=== PATIENT | male | born 1940 | race Caucasian/White ===

== ENCOUNTER → 2016-09-29 | Outpatient (CLI) | payer OTHER ==
[~2016-09-29] MED LIST: ALPR-411 PO; AMLO-110 PO; ASPI-232 PO; CLON0.1T12 PO; FLM4 PO; LEVO-217 PO; LISI40TA PO; LVMIPEN SC; MELO15TA3 PO; METO50TA7 PO; MULT-506 PO; NVLGI/PEN SC; NYSCR15 TOP; SILD100T PO; SIMV20TA2 PO; TIMO0.2527 OPB; TRAM-10 PO; TRIA0.1C20 TOP; URC10 PO; ZTA10 PO
[2016-09-29 11:37] LABS: ESTIMATED AVERAGE GLUCOSE 146 mg/dl; HA1C FLAG Normal (Normal)
== END | disposition home or self-care (01) ==
LOC: C.LABBC 08:52
PROVIDERS: ATTEND Nurse Practitioner Adult Health
DX: E11.8 Type 2 diabetes mellitus with unspecified complications (principal)

== ENCOUNTER → 2016-10-19 | Outpatient (CLI) | payer OTHER ==
[2016-10-19 11:40] LABS: BASO % 0.5 %; BASO ABS # 0.03 K/uL (0-0.2); COMPLETE YES; EOS % 4.5 %; HEMATOCRIT 41.3 % (42-52); IG% 0.2 %; LYMPH % 25.6 %; LYMPH ABS # 1.41 K/uL (1.2-3.4); MEAN CELL VOLUME 93.7 fL (80-100); MEAN CORPUSCULAR HEMOGLOBIN 29.9 pg (25-34); MEAN PLATELET VOLUME 11.6 fL (7.4-10.4); MONO % 9.3 %; NEUT % 59.9 %; PLATELET COUNT 190 K/uL (130-400); RED BLOOD COUNT 4.41 M/uL (4.7-6.1); WHITE BLOOD COUNT 5.51 K/uL (4.8-10.8)
[2016-10-19 11:58] LABS: BLOOD UREA NITROGEN 51 mg/dl (7-18); CALCIUM 9.1 mg/dl (8.5-10.1); CARBON DIOXIDE 26 mmol/L (21-32); CHLORIDE 107 mmol/L (98-107); GLUCOSE 100 mg/dl (70-99); POTASSIUM 4.6 mmol/L (3.5-5.1); SODIUM 142 mmol/L (136-145)
== END | disposition home or self-care (01) ==
LOC: C.LABBC 07:39
PROVIDERS: ATTEND Internal Medicine
DX: E78.5 Hyperlipidemia, unspecified (principal)

== ENCOUNTER → 2017-02-01 | Outpatient (CLI) | payer OTHER ==
--- NOTE | 2017-02-01 08:37 | DIAGNOSTIC IMAGING REPORT ---
KUB CLINICAL HISTORY: NEPHROLITHIASIS COMPARISON STUDY: 02/02/2016 FINDINGS: There is scattered stool within the colon. There is no evidence of bowel obstruction. There is a left mid abdominal suture line. There are two equivocal 3 mm lower pole left renal calculi.. Degenerative changes are present within the spine. There is a scoliosis. IMPRESSION: 1. Equivocal lower pole left renal calculi Electronically signed by: Maxwell Bueno M.D. 02/01/2017 8:36 AM Dictated Date/Time: 02/01/2017 8:34 AM
[2017-02-01 11:01] LABS: BASO % 0.8 %; BASO ABS # 0.05 K/uL (0-0.2); COMPLETE YES; EOS % 4.9 %; HEMATOCRIT 42.3 % (42-52); IG% 0.2 %; LYMPH % 20.3 %; LYMPH ABS # 1.21 K/uL (1.2-3.4); MEAN CORPUSCULAR HEMOGLOBIN 29.6 pg (25-34); MEAN CORPUSCULAR HGB CONC 31.4 g/dl (32-36); MEAN PLATELET VOLUME 11.5 fL (7.4-10.4); MONO % 13.3 %; NEUT % 60.5 %; PLATELET COUNT 212 K/uL (130-400); WHITE BLOOD COUNT 5.95 K/uL (4.8-10.8)
[2017-02-01 11:11] LABS: CALCIUM 9.1 mg/dl (8.5-10.1)
[2017-02-01 11:19] LABS: ALT/SGPT 29 U/L (12-78); AST/SGOT 19 U/L (15-37); BLOOD UREA NITROGEN 72 mg/dl (7-18); BUN/CREATININE RATIO 26.7 (10-20); CARBON DIOXIDE 22 mmol/L (21-32); CHLORIDE 110 mmol/L (98-107); CHOLESTEROL 128 mg/dl (0-200); GLUCOSE 98 mg/dl (70-99); POTASSIUM 4.7 mmol/L (3.5-5.1); SODIUM 141 mmol/L (136-145); TRIGLYCERIDES 81 mg/dl (0-150); VERY LOW DENSITY LIPOPROT CALC 16 mg/dl
[2017-02-01 11:23] LABS: ESTIMATED AVERAGE GLUCOSE 146 mg/dl; HA1C FLAG Normal (Normal)
[2017-02-01 11:29] LABS: CHOLESTEROL/HDL RATIO 2.7; HDL CHOLESTEROL 48 mg/dl; LDL CHOLESTEROL CALCULATED 64 mg/dl; PROSTATE SPECIFIC ANTIGEN 0.492 ng/ml (0.000-4.000)
[2017-02-01 15:00] LABS: URINE APPEARANCE CLEAR (CLEAR); URINE BILIRUBIN NEG (NEG); URINE COLOR YELLOW; URINE EPITHELIAL CELL AUTO 0-5 /lpf (0-5); URINE NITRITE NEG (NEG); URINE SPECIFIC GRAVITY 1.015 (1.000-1.030); UROBILINOGEN NEG (NEG)
[2017-02-01 15:03] LABS: MANUAL MICROSCOPIC REQUIRED? NO; REVIEW REQ? NO
--- NOTE | 2017-02-06 10:57 | CODING QUERY MEDICAL NECESSITY ---
CQSUPPORTING DIAGNOSIS NEEDED A supporting diagnosis is required for the test/procedure performed on this patient in order for us to be reimbursed by the patient's insurance. Please provide a supporting diagnosis for the following test/procedure listed below next to the test name along with your signature. *If there is no additional diagnosis for this patient that would support the following test/procedure please document that below next to the test/procedure. Test(s)/Procedure(s) that require a supporting diagnosis: DOS 02/01/17 PROSTATE SPECIFIC Provider Signature: Date: Thank you Aletha Maloney [employer] Once completed, please kindly fax back to [phone] For questions please call [phone]
== END | disposition home or self-care (01) ==
LOC: C.RADBC 07:49
PROVIDERS: ATTEND Nurse Practitioner Adult Health
DX: N20.0 Calculus of kidney (principal); E78.5 Hyperlipidemia, unspecified; E11.8 Type 2 diabetes mellitus with unspecified complications; N40.1 Benign prostatic hyperplasia with lower urinary tract symptoms

== ENCOUNTER → 2017-05-18 | Outpatient (CLI) | payer OTHER ==
[2017-05-18 11:34] LABS: BLOOD UREA NITROGEN 69 mg/dl (7-18); BUN/CREATININE RATIO 28.7 (10-20); CALCIUM 9.3 mg/dl (8.5-10.1); CARBON DIOXIDE 28 mmol/L (21-32); CHLORIDE 107 mmol/L (98-107); GLUCOSE 118 mg/dl (70-99); SODIUM 141 mmol/L (136-145)
[2017-05-18 11:48] LABS: ESTIMATED AVERAGE GLUCOSE 146 mg/dl; HA1C FLAG Normal (Normal)
== END | disposition home or self-care (01) ==
LOC: C.LABBC 07:47
PROVIDERS: ATTEND Nurse Practitioner Adult Health
DX: E11.8 Type 2 diabetes mellitus with unspecified complications (principal)

== ENCOUNTER → 2017-08-22 | Outpatient (CLI) | payer OTHER ==
[2017-08-22 10:55] LABS: BASO % 0.7 %; BASO ABS # 0.04 K/uL (0-0.2); COMPLETE YES; EOS % 4.5 %; IG% 0.2 %; LYMPH % 22.8 %; LYMPH ABS # 1.32 K/uL (1.2-3.4); MEAN CELL VOLUME 94.9 fL (80-100); MEAN CORPUSCULAR HEMOGLOBIN 29.9 pg (25-34); MEAN CORPUSCULAR HGB CONC 31.5 g/dl (32-36); MEAN PLATELET VOLUME 11.1 fL (7.4-10.4); MONO % 8.8 %; PLATELET COUNT 206 K/uL (130-400); RED BLOOD COUNT 4.32 M/uL (4.7-6.1); WHITE BLOOD COUNT 5.79 K/uL (4.8-10.8)
[2017-08-22 11:07] LABS: ESTIMATED AVERAGE GLUCOSE 148 mg/dl; HA1C FLAG Normal (Normal)
[2017-08-22 11:29] LABS: ALT/SGPT 30 U/L (12-78); AST/SGOT 20 U/L (15-37); BLOOD UREA NITROGEN 62 mg/dl (7-18); BUN/CREATININE RATIO 25.5 (10-20); CALCIUM 8.9 mg/dl (8.5-10.1); CARBON DIOXIDE 28 mmol/L (21-32); CHLORIDE 104 mmol/L (98-107); CREATININE 2.44 mg/dl (0.60-1.40); GLUCOSE 139 mg/dl (70-99); POTASSIUM 4.9 mmol/L (3.5-5.1); SODIUM 137 mmol/L (136-145)
[2017-08-22 11:40] LABS: CHOLESTEROL 143 mg/dl (0-200); CHOLESTEROL/HDL RATIO 2.9; HDL CHOLESTEROL 49 mg/dl; LDL CHOLESTEROL CALCULATED 69 mg/dl; TRIGLYCERIDES 127 mg/dl (0-150); VERY LOW DENSITY LIPOPROT CALC 25 mg/dl
== END | disposition home or self-care (01) ==
LOC: C.LABBC 07:56
PROVIDERS: ATTEND Internal Medicine
DX: E11.8 Type 2 diabetes mellitus with unspecified complications (principal)

== ENCOUNTER → 2017-12-04 | Outpatient (CLI) | payer OTHER ==
[~2017-12-04] MED LIST changes: -METO50TA7 PO; +METO50TA8 PO
[2017-12-04 11:13] LABS: BASO ABS # 0.06 K/uL (0-0.2); EOS % 3.7 %; EOS ABS # 0.23 K/uL (0-0.5); HEMATOCRIT 39.6 % (42-52); HEMOGLOBIN 12.8 g/dL (14.0-18.0); IG# 0.01 K/uL (0.00-0.02); LYMPH % 19.2 %; MEAN CORPUSCULAR HEMOGLOBIN 29.4 pg (25-34); MEAN CORPUSCULAR HGB CONC 32.3 g/dl (32-36); MONO % 11.7 %; MONO ABS # 0.73 K/uL (0.11-0.59); NEUT % 64.2 %; NEUT ABS # 4.03 K/uL (1.4-6.5); PLATELET COUNT 210 K/uL (130-400); RED CELL DISTRIBUTION WIDTH CV 14.6 % (11.5-14.5); WHITE BLOOD COUNT 6.26 K/uL (4.8-10.8)
[2017-12-04 11:43] LABS: BLOOD UREA NITROGEN 54 mg/dl (7-18); CALCIUM 8.9 mg/dl (8.5-10.1); CARBON DIOXIDE 27 mmol/L (21-32); CREATININE 2.39 mg/dl (0.60-1.40); GLUCOSE 150 mg/dl (70-99); POTASSIUM 4.3 mmol/L (3.5-5.1); SODIUM 139 mmol/L (136-145)
== END | disposition home or self-care (01) ==
LOC: C.LABBC 08:10
PROVIDERS: ATTEND Physician Assistant
DX: N28.9 Disorder of kidney and ureter, unspecified (principal); E11.9 Type 2 diabetes mellitus without complications

== ENCOUNTER → 2018-02-13 | Outpatient (CLI) | payer OTHER ==
--- NOTE | 2018-02-13 10:50 | DIAGNOSTIC IMAGING REPORT ---
KUB HISTORY: Nephrolithiasis. COMPARISON: KUB 02/01/2017. FINDINGS: The bowel gas pattern is unremarkable. There are no dilated loops of small bowel to suggest an obstruction. Stable calcifications within the pelvis consistent with phleboliths. Suture material within the left side of the abdomen. No right renal calculi. A 6 mm calcification overlying the tip of the lower pole of the left kidney may represent a cortical calcification or an adjacent vascular calcification. There is an additional stable 3 mm calcification within the lower pole the left kidney. Moderate well-formed stool seen throughout the colon. No pneumoperitoneum or pneumatosis. IMPRESSION: 1. Stable left-sided nephrolithiasis. 2. No ureteral calculi. Electronically signed by: Socrates Keith M.D. 02/13/2018 10:49 AM Dictated Date/Time: 02/13/2018 10:45 AM
== END | disposition home or self-care (01) ==
LOC: C.RADBC 10:13
PROVIDERS: ATTEND Urology
DX: N20.0 Calculus of kidney (principal)

== ENCOUNTER 2020-07-09 17:31 | Inpatient (IN) ==
[2020-07-09] MEDS ORDERED: SODIUM CHLORIDE 0.9% 1000ML 1,000 ML IV ONE ×2 (17:50→19:49)
--- NOTE | 2020-07-09 18:05 | Emergency Department Note ---
Impression & Plan Acute hyperkalemia, JV (acute kidney injury), CKD (chronic kidney disease), Weakness ED Provider Note NAME: LARISSA LORENZO AGE: 80 SEX: M : 1940 ARRIVES VIA: Ambulance INFORMANT: Patient ED PROVIDER(S): Afshin Benitez DO CHIEF COMPLAINT: Fall and weakness in the legs HPI: Patient is a 80-year-old male who presents the ER for weakness of his legs. He notes that this has been getting worse since Sunday. He normally walks with a cane as he has some weakness in his legs but has gotten worse. He denies any decrease sensation. No numbness in the groin. Able to move his bowels. Denies any chest pain or shortness of breath. No belly pain, nausea, vomiting or diarrhea. He did have some upper respiratory symptoms about a week ago which included some nasal drip into the back of his throat. He had nearly abated. He notes he was tested for COVID and that came back negative in the past 24 hours. No other exacerbating remitting factors at this time. When he fell he went down on his right side. He did not hit his head or neck. ROS: See above HPI for pertinent positives & negatives. A total of 10 systems reviewed and were otherwise negative. PAST MEDICAL HISTORY:See Below PAST SURGICAL HISTORY:See Below FAMILY HISTORY:See Below SOCIAL HISTORY:See Below HOME MEDICATIONS:See Below ALLERGIES:See Below VITALS:See Below PHYSICAL EXAMINATION: GENERAL: Sitting up in bed, alert, well appearing, well nourished, no distress, non-toxic EYE EXAM: normal conjunctiva. OROPHARYNX: no exudate, no erythema, lips, buccal mucosa, and tongue normal and mucous membranes are moist NECK: supple, no nuchal rigidity, no adenopathy, non-tender LUNGS: Clear to auscultation. Normal chest wall mechanics HEART: no murmurs, S1 normal and S2 normal ABDOMEN: abdomen soft, non-tender, normo-active bowel sounds, no masses, no rebound or guarding. BACK: Back is symmetrical on inspection and there is no deformity, no midline tenderness, no CVA tenderness. SKIN: no rashes and no bruising UPPER EXTREMITIES: upper extremities are grossly normal. LOWER EXTREMITIES: No pitting edema. Flexion-extension of the hips, knees, ankles and EHL 4-5 on the right. Left is 4 out of 5 with the exception of the hip which is 3 out of 5. DPs 2 out of 4. Gross station intact. NEURO EXAM: Normal sensorium, cranial nerves II-XII grossly intact, normal speech, no gross weakness of arms. MEDICAL DECISION MAKING: Patient is a 80-year-old male who presents the ER for weakness in his bilateral lower extremities. IV was established blood work was obtained. Labs show no significant leukocytosis or anemia. BMP with a potassium of 7.3 and a creatinine of 4. Baseline creatinine appears to be 3.3. Potassium normally runs about 6. CO2 slightly low at 20 which I favor secondary to the chronic kidney disease. LFTs bilirubin was unremarkable. Troponin was detectable but not positive. Lipase was normal. UA was clean. Patient was given IV fluids, IV insulin, IV glucose, IV bicarb, IV calcium chloride. I discussed with nephrology Dr. Colon who was agreeable with keeping the patient here as well as Dr. Kumar from the hospitalist service. Patient was updated bedside. CT of the head and lumbar spine showed no acute pathology. He was updated and admitted for further work-up. EkG did have T wave changes. Triage Nursing notes reviewed. Prior medical records reviewed Vital Signs: reviewed and remarkable for HTN Differential diagnosis: Differential diagnosis includes etiologies such as ectopic , dysfunction uterine bleeding, bleeding dyscrasia, trauma, infection, as well as others were entertained. ER treatment provided: See below Diagnostics interpreted by me: ECG: Sinus bradycardia rate of 59 Left axis Peak T waves Septal Q waves Mild ST elevation in V2 Cardiac Monitoring: An order was placed for continuous cardiac monitoring. The monitor shows a rate of 80 with sinus rhythm. Laboratory studies: As stated above and show below. Imaging studies: CT lumbar spine head and head were unremarkable Portable AP upright view of the chest was unremarkable Consultation(s): Discussed with Dr. Mcpherson and Dr. Ramirez as stated above in [facility] ED COURSE: Procedures: none Critical Care: I have personally spent 40 minutes of critical care time in the direct management of this patient. This includes bedside care, interpretation of diagnostic studies, and testing, discussion with consultants, patient, and family members, and other required patient management activities. This 40 minutes is in excess of all separately billable procedures. 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, with long-term current use of insulin Coronary arteriosclerosis Cyst of kidney, acquired Diverticulosis of colon Dyslipidemia Generalized osteoarthritis Hydrocele Hypertension Hypothyroidism Internal hemorrhoids Obesity, Class II, BMI 35-39.9 Right leg swelling Stage III chronic kidney disease Surgical History History of colonoscopy History of ear surgery Tympanic membrane repair History of exploratory laparotomy History of inguinal hernia repair History of prostate surgery History of total knee arthroplasty History of umbilical hernia repair Family History Father Cancer of kidney Hypertension Cardiac disorder Family/Other Cancer of kidney Bone cancer Mother Bone cancer Cardiac disorder Hypertension Social History Smoking Status: Never smoker Hx Alcohol Use: No Hx Substance Use: No Preferred Language: B[place]ian Communication Ability: Effective Visual Impairment: No Limitations Hearing Ability: Normal marital status: Current Living Situation: Spouse current occupational status: employed 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 Feels Safe at Home: Yes Seatbelt Use: always Allergies Allergies Allergy/AdvReac Type Severity Reaction Status Date / Time adhesive Allergy Unknown DERMATITIS Verified 07/09/20 21:03 latex Allergy Unknown SKIN Verified 07/09/20 21:03 IRRITATION Home Meds Home Medications Medication Instructions Recorded Confirmed aspirin 81 mg tablet 81 mg PO DAILY tab 04/25/19 07/09/20 insulin syringe,safetyneedle 0.3 #100 ea 04/25/19 06/04/20 mL 31 gauge x 15/64" pen needle, diabetic 31 gauge x #30 ea 04/25/19 06/04/20 3/16" sildenafil 100 mg tablet 100 mg PO DAILY PRN #40 tab 04/25/19 07/09/20 timolol 0.25 % eye drops 1 drops OP DAILY ml 04/25/19 07/09/20 potassium citrate 10 mEq (1,080 10 meq PO BID tab 06/04/20 07/09/20 mg) tablet,extended release alprazolam 0.5 mg PO BID 07/09/20 07/09/20 clonidine HCl 0.1 mg PO QPM 07/09/20 07/09/20 desmopressin 0.2 mg PO HS 07/09/20 07/09/20 insulin regular human [Novolin R 0 units SQ TIDM 07/09/20 07/09/20 Regular U-100 Insuln] Previous Rx's Medication Instructions Recorded ezetimibe 10 mg tablet 10 mg PO DAILY #90 tab 08/04/19 blood sugar diagnostic See Rx Instructions .ROUTE 08/08/19 .COMPLEX #500 unspecified simvastatin 40 mg tablet 40 mg PO HS #90 tab 10/06/19 metoprolol succinate 50 mg 50 mg PO .COMPLEX #135 tab 11/24/19 tablet,extended release 24 hr nystatin 100,000 unit/gram topical 1 appln TOP BID #30 gm 01/20/20 cream triamcinolone acetonide 0.1 % 1 appln TOP BID #80 gm 01/20/20 topical cream Levemir FlexTouch U-100 Insuln 100 48 units SQ HS #45 ml NS 01/23/20 unit/mL (3 mL) subcutaneous pen levothyroxine 50 mcg tablet 50 mcg PO .COMPLEX #90 tab 02/08/20 tamsulosin 0.4 mg capsule 0.4 mg PO DAILY #90 cap 04/05/20 meloxicam 15 mg tablet 15 mg PO DAILY #90 tab 04/20/20 finasteride 5 mg tablet 5 mg PO DAILY #90 tab 04/21/20 tramadol 50 mg tablet 50 mg PO .COMPLEX #90 tab 05/24/20 amlodipine 5 mg tablet 5 mg PO DAILY #90 tab 06/07/20 lisinopril 40 mg tablet 40 mg PO DAILY #90 tab 06/09/20 FreeStyle Ritchie 14 Day [place] #1 ea NS 06/24/20 FreeStyle Ritchie 14 Day Sensor #2 ea NS 06/24/20 Results & Data (ED) Vital Signs Vital Signs - 24 hr 07/09/20 17:30 07/09/20 18:24 07/09/20 19:44 Temperature 36.6 C Temperature Source Oral Pulse Rate 61 57 L Pulse Rate from SpO2 Sensor 56 L Respiratory Rate 20 18 Respiratory Effort / Characteristics Non-Labored Respiratory Depth Normal Respiratory Pattern Regular Blood Pressure 156/83 H 177/95 H Blood Pressure Mean 107 126 Blood Pressure Position Lying Pulse Oximetry 97 96 Oxygen Delivery Method Room Air Room Air Sepsis Recent Fever Within 48 Hours No Sepsis New/Unexplained Change in Mental Status No Sepsis Action Taken by Nursing No Action Required 07/09/20 20:01 07/09/20 20:30 07/09/20 20:58 Temperature Temperature Source Pulse Rate 71 79 68 Pulse Rate from SpO2 Sensor 69 Respiratory Rate 19 18 18 Respiratory Effort / Characteristics Respiratory Depth Respiratory Pattern Blood Pressure 174/94 H 175/96 H 175/96 H Blood Pressure Mean 116 131 131 Blood Pressure Position Pulse Oximetry 99 Oxygen Delivery Method Sepsis Recent Fever Within 48 Hours Sepsis New/Unexplained Change in Mental Status Sepsis Action Taken by Nursing 07/09/20 21:00 07/09/20 21:31 07/09/20 22:02 Temperature Temperature Source Pulse Rate 70 71 87 Pulse Rate from SpO2 Sensor Respiratory Rate 18 18 18 Respiratory Effort / Characteristics Respiratory Depth Respiratory Pattern Blood Pressure 188/88 H 159/88 H 181/98 H Blood Pressure Mean 129 104 103 Blood Pressure Position Pulse Oximetry Oxygen Delivery Method Sepsis Recent Fever Within 48 Hours Sepsis New/Unexplained Change in Mental Status Sepsis Action Taken by Nursing 07/09/20 22:30 07/09/20 22:41 Temperature Temperature Source Pulse Rate 79 76 Pulse Rate from SpO2 Sensor Respiratory Rate 18 19 Respiratory Effort / Characteristics Respiratory Depth Respiratory Pattern Blood Pressure 178/82 H 158/96 H Blood Pressure Mean 106 116 Blood Pressure Position Pulse Oximetry Oxygen Delivery Method Sepsis Recent Fever Within 48 Hours Sepsis New/Unexplained Change in Mental Status Sepsis Action Taken by Nursing Laboratory Data Result diagrams: 07/09/20 18:28 07/09/20 18:28 Lab Results 07/09/20 07/09/20 07/09/20 Range/Units 18:28 18:28 18:45 WBC 7.79 (4.8-10.8) K/uL RBC 4.64 L (4.7-6.1) M/uL Hgb 13.3 L (14.0-18.0) g/dL Hct 42.8 (42-52) % MCV 92.2 (80-100) fL MCH 28.7 (25-34) pg MCHC 31.1 L (32-36) g/dL RDW Std Deviation 51.0 H (36.4-46.3) fL RDW Coeff of Aysha 15.1 H (11.5-14.5) % Plt Count 262 (130-400) K/uL MPV 10.8 H (7.4-10.4) fL Immature Gran % (Auto) 0.3 % Neut % (Auto) 66.8 % Lymph % (Auto) 19.4 % [place] % (Auto) 10.1 % Eos % (Auto) 3.0 % Baso % (Auto) 0.4 % Neut # (Auto) 5.21 (1.4-6.5) K/uL Lymph # (Auto) 1.51 (1.2-3.4) K/uL [place] # (Auto) 0.79 H (0.11-0.59) K/uL Eos # (Auto) 0.23 (0-0.5) K/uL Baso # (Auto) 0.03 (0-0.2) K/uL Immature Gran # (Auto) 0.02 (0.00-0.02) K/uL Sodium 135 L (136-145) mmol/L Potassium 7.3 H* (3.5-5.1) mmol/L Chloride 110 H (98-107) mmol/L Carbon Dioxide 20 L (21-32) mmol/L Anion Gap 5.0 (3-11) BUN 81 H (7-18) mg/dl Creatinine 4.09 H (0.6-1.4) mg/dl Est Cr Clr Drug Dosing 16.5 ml/min Est GFR ( Amer) 15.0 Est GFR (Non-Af Amer) 13.0 BUN/Creatinine Ratio 19.9 (10-20) Glucose 119 H (70-99) mg/dl Calcium 9.9 (8.5-10.1) mg/dl Total Bilirubin 0.4 (0.2-1) mg/dl AST 19 (15-37) U/L ALT 26 (12-78) U/L Alkaline Phosphatase 66 (45-117) U/L Troponin I (0-0.045) ng/ml Total Protein 7.8 (6.4-8.2) gm/dl Albumin 3.8 (3.4-5.0) gm/dl Globulin 4.0 (2.5-4.0) gm/dl Albumin/Globulin Ratio 1.0 (0.9-2) Lipase 192 (73-393) U/L Urine Color Yellow Urine Appearance Clear (Clear) Urine pH 6.5 (4.5-7.5) Ur Specific [place] 1.013 (1.000-1.030) Urine Protein 1+ H (Negative) Urine Glucose (UA) Negative (Negative) Urine Ketones Negative (Negative) Urine Blood Trace H (Negative) Urine Nitrite Negative (Negative) Urine Bilirubin Negative (Negative) Urine Urobilinogen Negative (Negative) Ur Leukocyte Esterase Negative (Negative) Urine WBC (Auto) 0 (0-5) /hpf Urine RBC (Auto) 0-4 (0-4) /hpf U Hyaline Cast (Auto) 0 (0-5) /lpf U Epithel Cells (Auto) 0-5 (0-5) /lpf Urine Bacteria (Auto) Negative (Negative) 07/09/20 Range/Units 19:30 WBC (4.8-10.8) K/uL RBC (4.7-6.1) M/uL Hgb (14.0-18.0) g/dL Hct (42-52) % MCV (80-100) fL MCH (25-34) pg MCHC (32-36) g/dL RDW Std Deviation (36.4-46.3) fL RDW Coeff of Aysha (11.5-14.5) % Plt Count (130-400) K/uL MPV (7.4-10.4) fL Immature Gran % (Auto) % Neut % (Auto) % Lymph % (Auto) % [place] % (Auto) % Eos % (Auto) % Baso % (Auto) % Neut # (Auto) (1.4-6.5) K/uL Lymph # (Auto) (1.2-3.4) K/uL [place] # (Auto) (0.11-0.59) K/uL Eos # (Auto) (0-0.5) K/uL Baso # (Auto) (0-0.2) K/uL Immature Gran # (Auto) (0.00-0.02) K/uL Sodium (136-145) mmol/L Potassium (3.5-5.1) mmol/L Chloride (98-107) mmol/L Carbon Dioxide (21-32) mmol/L Anion Gap (3-11) BUN (7-18) mg/dl Creatinine (0.6-1.4) mg/dl Est Cr Clr Drug Dosing ml/min Est GFR ( Amer) Est GFR (Non-Af Amer) BUN/Creatinine Ratio (10-20) Glucose (70-99) mg/dl Calcium (8.5-10.1) mg/dl Total Bilirubin (0.2-1) mg/dl AST (15-37) U/L ALT (12-78) U/L Alkaline Phosphatase (45-117) U/L Troponin I 0.031 (0-0.045) ng/ml Total Protein (6.4-8.2) gm/dl Albumin (3.4-5.0) gm/dl Globulin (2.5-4.0) gm/dl Albumin/Globulin Ratio (0.9-2) Lipase (73-393) U/L Urine Color Urine Appearance (Clear) Urine pH (4.5-7.5) Ur Specific [place] (1.000-1.030) Urine Protein (Negative) Urine Glucose (UA) (Negative) Urine Ketones (Negative) Urine Blood (Negative) Urine Nitrite (Negative) Urine Bilirubin (Negative) Urine Urobilinogen (Negative) Ur Leukocyte Esterase (Negative) Urine WBC (Auto) (0-5) /hpf Urine RBC (Auto) (0-4) /hpf U Hyaline Cast (Auto) (0-5) /lpf U Epithel Cells (Auto) (0-5) /lpf Urine Bacteria (Auto) (Negative) Administered Medications Ceftriaxone Sodium 1,000 mg/ (Dextrose) 50 mls @ 100 mls/hr IV Q24H [facility]; Protocol Stop: 07/19/20 21:29 Last Admin: 07/09/20 21:48 Dose: Not Given Documented by: [id number] Discontinued Medications Calcium Gluconate (Calcium Gluconate 10% 10 Ml Vial) 1,000 mg IV NOW STA Stop: 07/09/20 19:20 Last Admin: 07/09/20 19:51 Dose: 1,000 mg Documented by: [id number] Ceftriaxone Sodium (Ceftriaxone Sodium 1000mg/50ml D5w) Confirm Administered Dose 1,000 mg IV .STK-MED ONE Stop: 07/09/20 21:41 Last Admin: 07/09/20 21:42 Dose: 1,000 mg Documented by: [id number] Dextrose (Dextrose 50% 50 Ml Syringe) 50 ml IV NOW ONE Stop: 07/09/20 19:20 Last Admin: 10/16/20 19:51 Dose: 50 ml Documented by: [id number] Sodium Chloride (Nss 1000ml) 1,000 mls @ 999 mls/hr IV .Q1H1M ONE Stop: 07/09/20 18:50 Last Infusion: 07/09/20 21:07 Dose: 0 mls/hr Documented by: [id number] Admin: 07/09/20 18:33 Dose: 999 mls/hr Documented by: [id number] Sodium Chloride (Nss 1000ml) 1,000 mls @ 999 mls/hr IV .Q1H1M ONE Stop: 07/09/20 20:49 Last Infusion: 07/09/20 21:07 Dose: 0 mls/hr Documented by: [id number] Admin: 07/09/20 20:05 Dose: 999 mls/hr Documented by: [id number] Insulin Human Regular (Novolin-R Insulin Per Unit Charge) 10 units IV NOW STA Stop: 07/09/20 19:20 Last Admin: 07/09/20 19:51 Dose: 10 units Documented by: [id number] Cosigned by: [id number] Patiromer (Patiromer Calcium Sorbitex 8.4 Gm Pack) 8.4 gm PO NOW STA Stop: 07/09/20 20:03 Last Admin: 07/09/20 20:30 Dose: 8.4 gm Documented by: [id number] Sodium Bicarbonate (Sodium Bicarb 8.4% Inj 50 Meq/50 Ml Syr) 100 meq IV NOW STA Stop: 07/09/20 19:20 Last Admin: 07/09/20 19:53 Dose: 100 meq Documented by: [id number] Tamsulosin HCl (Tamsulosin Hcl 0.4 Mg Cap) 0.8 mg PO NOW STA Stop: 07/09/20 21:27 Last Admin: 07/09/20 21:34 Dose: 0.8 mg Documented by: [id number] Discharge Plan Visit Data Chief Complaint: Fall ED Provider: Afshin Benitez Discharge Problem: Acute hyperkalemia, JV (acute kidney injury), CKD (chronic kidney disease), Weakness Discharge Instructions Interventions: ED Discharge Assessment Last Done: 07/09/20 22:52 Discharge Problem: CKD (chronic kidney disease) Qualifiers: Chronic kidney disease stage: unspecified stage Qualified Code(s): N18.9 - Chronic kidney disease, unspecified
--- NOTE | 2020-07-09 18:22 | XRay Report ---
SINGLE VIEW CHEST CLINICAL HISTORY: Cough. FINDINGS: An AP, portable, upright chest radiograph is compared to study dated 07/13/2016. The examin ation is degraded by portable technique, apical lordotic positioning, and patient rotation. The hear t is enlarged. The pulmonary vasculature is noncongested. Bibasilar airspace opacities likely represe nt atelectasis. No large pleural effusion or pneumothorax is seen. The skeletal structures are osteop enic. The bony thorax is grossly intact. IMPRESSION: 1. Cardiomegaly without radiographic evidence of congestive failure. 2. Bibasilar opacities likely represent atelectasis. Clinical correlation will be required. ACT 112: Negative or not required by law. Electronically signed by: Dez Munoz M.D. 07/09/2020 6:21 PM
[2020-07-09 18:43] LABS: Basophils # (auto) 0.03 K/uL (0-0.2); Basophils % (auto) 0.4 %; Eosinophils # (auto) 0.23 K/uL (0-0.5); Hematocrit (blood only) 42.8 % (42-52); Hemoglobin 13.3 g/dL (14.0-18.0); Immature Granulocytes # (auto) 0.02 K/uL (0.00-0.02); Immature Granulocytes % (auto) 0.3 %; Lymphocytes # (auto) 1.51 K/uL (1.2-3.4); Lymphocytes % (auto) 19.4 %; Mean Corpuscular Hemoglobin 28.7 pg (25-34); Mean Corpuscular Hgb Conc 31.1 g/dL (32-36); Mean Corpuscular Volume 92.2 fL (80-100); Mean Platelet Volume 10.8 fL (7.4-10.4); Monocytes # (auto) 0.79 K/uL (0.11-0.59); Monocytes % (auto) 10.1 %; Neutrophils # (auto) 5.21 K/uL (1.4-6.5); Neutrophils % (auto) 66.8 %; Platelet Count 262 K/uL (130-400); RDW Coefficient of Variation 15.1 % (11.5-14.5); Red Blood Count 4.64 M/uL (4.7-6.1); White Blood Count 7.79 K/uL (4.8-10.8)
[2020-07-09 19:01] LABS: Appearance Urine Clear (Clear); Bacteria Urine Automated Negative (Negative); Bilirubin Urine Negative (Negative); Blood Urine Trace (Negative); Cast Urine Automated 0 /lpf (0-5); Color Urine Yellow; Epithelial Cell Urine Auto 0-5 /lpf (0-5); Glucose Urine UA Negative (Negative); Ketones Urine Negative (Negative); Leukocyte Esterase Urine Negative (Negative); Nitrite Urine Negative (Negative); Protein Urine 1+ (Negative); RBC Urine Automated 0-4 /hpf (0-4); Specific Gravity Urine 1.013 (1.000-1.030); Urobilinogen Urine Negative (Negative); WBC Urine Automated 0 /hpf (0-5); pH Urine 6.5 (4.5-7.5)
[2020-07-09 19:16] LABS: Albumin Level 3.8 gm/dl (3.4-5.0); BUN Creatinine Ratio 19.9 (10-20); Bilirubin,Total 0.4 mg/dl (0.2-1); Calcium 9.9 mg/dl (8.5-10.1); Creatinine Clr Calc Pharmacy 16.5 ml/min; Potassium 7.3 mmol/L (3.5-5.1); Total Protein 7.8 gm/dl (6.4-8.2)
[2020-07-09] MEDS ORDERED: NovoLIN-R INSULIN PER UNIT CHARGE IV STA (19:19)
[2020-07-09] MEDS ORDERED: CALCIUM GLUCONATE 10% 10 ML VIAL IV STA (19:19)
[2020-07-09] MEDS ORDERED: SODIUM BICARB 8.4% INJ 50 MEQ/50 ML SYR IV STA (19:19)
[2020-07-09] MEDS ORDERED: DEXTROSE 50% 50 ML SYRINGE IV ONE (19:19)
--- NOTE | 2020-07-09 19:22 | CT Scan Report ---
CT SCAN OF THE BRAIN WITHOUT IV CONTRAST CLINICAL HISTORY: Fall. Weakness. COMPARISON STUDY: No priors. TECHNIQUE: Unenhanced axial CT scan of the brain is performed from the vertex to the skull base. A do se lowering technique was utilized adhering to the principles of ALARA. FINDINGS: Brain parenchyma: There are age-related involutional changes noting moderate subcortical and periven tricular microangiopathic change. A 3.6 cm arachnoid cyst is noted in the left temporal fossa. This c auses minimal mass effect on the adjacent cortical sulci. There is no hemorrhage, midline shift, or e vidence of acute territorial ischemia by CT criteria. [place]-white matter differentiation is preserved. No extra-axial fluid collection is seen. Ventricles, sulci, cisterns: Prominent secondary to involutional change. Intracranial vasculature: There is atherosclerotic calcification of the cavernous carotid and vertebr al arteries. Calvarium: The skeletal structures are osteopenic. No depressed calvarial fracture is identified. Sinuses and mastoids: There is trace mucosal thickening within the maxillary antra and ethmoid sinuse s. The remaining paranasal sinuses are clear. The mastoid air cells are well pneumatized. Orbits: The bony orbits are grossly intact. IMPRESSION: There is no hemorrhage, midline shift, or evidence of acute territorial ischemia by CT cr iteria. ACT 112: Negative or not required by law. Electronically signed by: Dez Munoz M.D. 07/09/2020 7:21 PM
--- NOTE | 2020-07-09 19:29 | CT Scan Report ---
CT SCAN OF THE LUMBAR SPINE WITHOUT IV CONTRAST CLINICAL HISTORY: Fall. Lower extremity weakness. COMPARISON STUDY: MRI of the lumbar spine dated 08/27/2018. TECHNIQUE: CT scan of the lumbar spine is performed from the lower thoracic spine to the sacrum. Miroslava ges are reviewed in the axial, sagittal, and coronal planes. IV contrast was not administered for thi s examination. A dose lowering technique was utilized adhering to the principles of ALARA. CT DOSE: 1731.26 mGy.cm FINDINGS: The skeletal structures are osteopenic. There is no evidence of fracture or malalignment in volving the lumbar spine. Vertebral body height is maintained throughout the lumbar spine. There is a mild chronic superior endplate compression deformity of T12. Alignment is preserved. Mild levocurvat ure centered at L3. Anterior and lateral marginal osteophytes are seen throughout. The transverse and spinous processes appear intact. No spondylolysis is seen. No lytic or blastic lesion is identified. Facet arthropathy is noted in the lower lumbar region. Moderate disc space narrowing is seen through out the lumbar spine, greatest at L5-S1. Posterior disc osteophyte complexes are seen at all lumbar l evels. This likely contributes to mild multilevel acquired compromise of the central canal, greatest at L4-L5 and L5-S1. The visualized sacrum and bony pelvis appear intact. Degenerative change is noted in the sacroiliac joints. There is fatty atrophy of the paraspinous musculature. Advanced atheroscle rotic calcification is noted in the abdominal aorta. No retroperitoneal lymphadenopathy is seen. IMPRESSION: 1. No acute bony abnormality is seen involving the lumbar spine. 2. Osteopenia and spondylotic change as above. 3. Mild chronic superior endplate compression deformity of T12. ACT 112: Negative or not required by law. Electronically signed by: Dez Munoz M.D. 07/09/2020 7:27 PM
[2020-07-09] MEDS ORDERED: PATIROMER CALCIUM SORBITEX 8.4 GM PACK PO STA (20:02)
[2020-07-09] MEDS ORDERED: cefTRIAXone SODIUM 2,000 MG in DEXTROSE 5% 50 ML IV SCH (21:00)
[2020-07-09] MEDS ORDERED: TAMSULOSIN HCL 0.4 MG CAP PO STA (21:26)
[2020-07-09] MEDS ORDERED: cefTRIAXone SODIUM 1,000 MG in DEXTROSE 5% 50 ML IV SCH (21:30)
[2020-07-09] MEDS ORDERED: cefTRIAXone SODIUM 1000MG/50ML D5W IV ONE (21:40)
--- NOTE | 2020-07-09 22:36 | History & Physical Report ---
Date of Service July 09, 2020 Assessment & Plan (1) Acute hyperkalemia: Acute hyperkalemia/acute kidney injury superimposed on chronic kidney disease- Admission laboratories: Potassium 7.3, creatinine of 4.09, with range 2.82-3.57. In the emergency department patient received Veltassa, calcium gluconate, sodium bicarbonate, 1 amp of D50 followed by 10 regular insulin IV and normal saline 1 L. Follow-up laboratories 3 hours later: Potassium 5.9, creatinine 3.59. We will hold lisinopril 40 mg daily, meloxicam 15 mg daily and potassium citrate 10 mEq twice daily. Continue Veltassa 8.4 mg p.o. daily. Continue NSS at 80 mils per hour Repeat BMP, magnesium and phosphorus levels in a.m. Present on Admission?: Yes (2) Acute kidney injury superimposed on chronic kidney disease: Consult nephrology. Present on Admission?: Yes (3) Benign prostatic hyperplasia with urinary obstruction: BPH with urinary obstruction/obstructive uropathy- Likely contributing significantly to acute kidney injury, as once Danielson catheter placed, patient drained over 1200 mL of urine. Continue Danielson catheter. Increase tamsulosin from 0.4 to 0.8 mg p.o. every evening, with first increased dose this evening. Continue finasteride 5 mg daily We will consult urology Present on Admission?: Yes (4) Coronary arteriosclerosis: CAD/hypertension- Continue amlodipine 5 mg daily, aspirin 81 mg daily, clonidine 0.1 mg p.o. every evening, metoprolol succinate 75 mg by mouth at bedtime Present on Admission?: Yes (5) Dyslipidemia: Continue simvastatin 40 mg at bedtime and Zetia 10 mg daily Present on Admission?: Yes (6) Hypertension: See above Present on Admission?: Yes (7) Hypothyroidism: Continue levothyroxine sodium 50 mcg daily Present on Admission?: Yes (8) Controlled type 2 diabetes mellitus with kidney complication, with long-term current use of insulin: Diabetes mellitus, long-term current use of insulin, kidney and neurologic complications- Decrease Lantus from 48 to 38 units subcu at bedtime for now. Hold regular insulin 3 times daily with meals for now. Placed on Accu-Cheks before meals and at bedtime with NovoLog coverage for scale Present on Admission?: Yes (9) Controlled type 2 diabetes mellitus with neurologic complication, with long- term current use of insulin: See above Present on Admission?: Yes (10) Weakness of both lower extremities: Weakness and tremor bilateral lower extremities- We will follow examination as potassium is normalized. CT lumbar spine did not show any significant spinal stenosis to suggest connec tion between urinary retention and his subjective lower extremity weakness and tremor. Present on Admission?: Yes History of Present Illness Chief Complaint: The patient presents to the emergency department with complaint of generalized weakness of both legs, the has been worsening over the past few days, affecting his ambulation even with the use of his cane Primary Care Provider: Orly Dickson MD The patient is a 80-year-old male with a past medical history including CKD, anemia, BPH with OBS/LUTS, diabetes mellitus with long-term insulin, CAD, diverticulosis of colon, dyslipidemia, generalized osteoarthritis, hypertension, hypothyroidism, internal hemorrhoids and obesity with BMI 35-39.9. Patient presents as above. He also notes some brief upper respiratory symptoms that re solved about 1 week ago. His COVID-19 test was negative at that time. He also notes an intermittent tremor of bilateral lower extremities. In the emergency department, work-up included following abnormal laboratories: Potassium 7.3, creatinine 4.09, hemoglobin 13.3. Imaging studies included a normal CT scan of head and lumbar spine. Chest x-ray revealed a left lower lobe pneumonia. In the emergency department, patient was given Veltassa, calcium gluconate, sodium bicarbonate, normal saline 1 L, 1 amp of D50 followed by 10 units of regular insulin IV. Allergies Allergy/AdvReac Type Severity Reaction Status Date / Time adhesive Allergy Unknown DERMATITIS Verified 07/09/20 21:03 latex Allergy Unknown SKIN Verified 07/09/20 21:03 IRRITATION Home Medications Home Medications Medication Instructions Recorded Confirmed Type aspirin 81 mg tablet 81 mg PO DAILY tab 04/25/19 07/09/20 History insulin syringe,safetyneedle 0.3 #100 ea 04/25/19 06/04/20 History mL 31 gauge x 15/64" pen needle, diabetic 31 gauge x #30 ea 04/25/19 06/04/20 History 3/16" sildenafil 100 mg tablet 100 mg PO DAILY PRN #40 tab 04/25/19 07/09/20 History timolol 0.25 % eye drops 1 drops OP DAILY ml 04/25/19 07/09/20 History ezetimibe 10 mg tablet 10 mg PO DAILY #90 tab 08/04/19 07/09/20 Rx blood sugar diagnostic See Rx Instructions .ROUTE 08/08/19 06/01/20 Rx .COMPLEX #500 unspecified simvastatin 40 mg tablet 40 mg PO HS #90 tab 10/06/19 07/09/20 Rx metoprolol succinate 50 mg 50 mg PO .COMPLEX #135 tab 11/24/19 07/09/20 Rx tablet,extended release 24 hr nystatin 100,000 unit/gram topical 1 appln TOP BID #30 gm 01/20/20 07/09/20 Rx cream triamcinolone acetonide 0.1 % 1 appln TOP BID #80 gm 01/20/20 07/09/20 Rx topical cream Levemir FlexTouch U-100 Insuln 100 48 units SQ HS #45 ml NS 01/23/20 07/09/20 Rx unit/mL (3 mL) subcutaneous pen levothyroxine 50 mcg tablet 50 mcg PO .COMPLEX #90 tab 02/08/20 07/09/20 Rx tamsulosin 0.4 mg capsule 0.4 mg PO DAILY #90 cap 04/05/20 07/09/20 Rx meloxicam 15 mg tablet 15 mg PO DAILY #90 tab 04/20/20 07/09/20 Rx finasteride 5 mg tablet 5 mg PO DAILY #90 tab 04/21/20 07/09/20 Rx tramadol 50 mg tablet 50 mg PO .COMPLEX #90 tab 05/24/20 07/09/20 Rx potassium citrate 10 mEq (1,080 10 meq PO BID tab 06/04/20 07/09/20 History mg) tablet,extended release amlodipine 5 mg tablet 5 mg PO DAILY #90 tab 06/07/20 07/09/20 Rx lisinopril 40 mg tablet 40 mg PO DAILY #90 tab 06/09/20 07/09/20 Rx FreeStyle Ritchie 14 Day [place] #1 ea NS 06/24/20 Rx FreeStyle Ritchie 14 Day Sensor #2 ea NS 06/24/20 Rx alprazolam 0.5 mg PO BID 07/09/20 07/09/20 History clonidine HCl 0.1 mg PO QPM 07/09/20 07/09/20 History desmopressin 0.2 mg PO HS 07/09/20 07/09/20 History insulin regular human [Novolin R 0 units SQ TIDM 07/09/20 07/09/20 History Regular U-100 Insuln] Past Med/Surg History Medical History (Updated 07/10/20 @ 04:38 by Fortino Blackwood MD) Anemia Benign prostatic hyperplasia with urinary obstruction Controlled type 2 diabetes mellitus with kidney complication, 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, with long-term current use of insulin Coronary arteriosclerosis Cyst of kidney, acquired Diverticulosis of colon Dyslipidemia Generalized osteoarthritis Hydrocele Hypertension Hypothyroidism Internal hemorrhoids Obesity, Class II, BMI 35-39.9 Right leg swelling Stage III chronic kidney disease Surgical History History of colonoscopy History of ear surgery Tympanic membrane repair History of exploratory laparotomy History of inguinal hernia repair History of prostate surgery History of total knee arthroplasty History of umbilical hernia repair Family History Father Cancer of kidney Hypertension Cardiac disorder Family/Other Cancer of kidney Bone cancer Mother Bone cancer Cardiac disorder Hypertension Social History Smoking Status: Former smoker Hx Alcohol Use: No Hx Substance Use: No Preferred Language: Kinyarwanda Communication Ability: Effective Visual Impairment: No Limitations Hearing Ability: Normal Beliefs That Will Affect Care: None marital status: Current Living Situation: Spouse current occupational status: employed 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 Other Information That Helps Us Care for You: No Feels Safe at Home: Yes Safety Concerns: Feels Safe At This Time Seatbelt Use: always Assistive Devices: Cane and Glasses Review of Systems Review of Systems: The patient denies chest pain, palpitations, lower extremity swelling, sore throat, fevers, chills, sweats, nausea, vomiting, diarrhea , constipation, abdominal pain, pelvic pain, blood in urine or stool, dysuria, urinary frequency or urgency, lightheadedness, dizziness, headache, memory loss, loss of consciousness, rash, abnormal bruising or bleeding, focal weakness, numbness or tingling in arms or legs, generalized arthralgias or myalgias, back or neck pain, or night sweats. The review of systems is otherwise negative other than for that already noted above, and at least 10 systems have been reviewed. Physical Exam Physical Exam: The patient is awake, alert and oriented 3, well developed and well nourished, normocephalic and atraumatic, lying in bed and in no acute distress. HEENT--PERRL, EOMI, mucous membranes and oropharynx normal. Neck--supple. No JVD. No bruits. Thyroid normal, trachea midline, no adenopathy. Heart--normal S1 and S2. No murmurs, rubs or gallops. Lungs--clear bilaterally, no respiratory distress, no accessory muscle use. Abdomen--normal bowel sounds and soft. Nontender. Nondistended. Obese. Extremities--no cyanosis or clubbing. No edema. Dermatologic--normal skin turgor, normal color, no abnormal lymph nodes, no rash. Neurologic--cranial nerves II through XII grossly intact. Rheumatologic--normal range of motion. Psychiatric--normal affect. Results & Data Results & Data ([facility]) Vital Signs (Past 12 Hours) Vital Signs Temp Pulse Resp BP Pulse Ox 07/09/20 20:01 71 19 174/94 H 99 07/09/20 19:44 57 L 18 177/95 H 96 07/09/20 17:30 97.9 F 61 20 156/83 H 97 Laboratory Results Laboratory Results WBC 7.79 K/uL (4.8-10.8) 07/09/20 18:28 RBC 4.64 M/uL (4.7-6.1) L 07/09/20 18:28 Hgb 13.3 g/dL (14.0-18.0) L 07/09/20 18:28 Hct 42.8 % (42-52) 07/09/20 18:28 MCV 92.2 fL (80-100) 07/09/20 18:28 MCH 28.7 pg (25-34) 07/09/20 18:28 MCHC 31.1 g/dL (32-36) L 07/09/20 18:28 RDW Std Deviation 51.0 fL (36.4-46.3) H 07/09/20 18:28 RDW Coeff of Aysha 15.1 % (11.5-14.5) H 07/09/20 18:28 Plt Count 262 K/uL (130-400) 07/09/20 18: MPV 10.8 fL (7.4-10.4) H 07/09/20 18: Immature Gran % (Auto) 0.3 % 07/09/20 18: Neut % (Auto) 66.8 % 07/09/20 18: Lymph % (Auto) 19.4 % 07/09/20 18: [place] % (Auto) 10.1 % 07/09/20 18: Eos % (Auto) 3.0 % 07/09/20 18: Baso % (Auto) 0.4 % 07/09/20 18: Neut # (Auto) 5.21 K/uL (1.4-6.5) 07/09/20: Lymph # (Auto) 1.51 K/uL (1.2-3.4) 07/09/20 18: [place] # (Auto) 0.79 K/uL (0.11-0.59) H 07/09/20 18: Eos # (Auto) 0.23 K/uL (0-0.5) 07/09/20 18: Baso # (Auto) 0.03 K/uL (0-0.2) 07/09/20 18: Immature Gran # (Auto) 0.02 K/uL (0.00-0.02) 07/09/20 18: Sodium 139 mmol/L (136-145) 07/10/20 00:43 Potassium 5.9 mmol/L (3.5-5.1) H D 07/10/20 00:43 Chloride 112 mmol/L (98-107) H 07/10/20 00:43 Carbon Dioxide 20 mmol/L (21-32) L 07/10/20 00:43 Anion Gap 7.0 (3-11) 07/10/20 00:43 BUN 64 mg/dl (7-18) H 07/10/20 00:43 Creatinine 3.59 mg/dl (0.6-1.4) H D 07/10/20 00:43 Est Cr Clr Drug Dosing 18.8 ml/min 07/10/20 00:43 Est GFR ( Amer) 17.6 07/10/20 00:43 Est GFR (Non-Af Amer) 15.2 07/10/20 00:43 BUN/Creatinine Ratio 17.9 (10-20) 07/10/20 00:43 Glucose 160 mg/dl (70-99) H 07/10/20 00:43 Calcium 9.5 mg/dl (8.5-10.1) 07/10/20 00:43 Total Bilirubin 0.4 mg/dl (0.2-1) 07/09/20 18:28 AST 19 U/L (15-37) 07/09/20 18:28 ALT 26 U/L (12-78) 07/09/20 18:28 Alkaline Phosphatase 66 U/L (45-117) 07/09/20 18:28 Troponin I 0.031 ng/ml (0-0.045) 07/09/20 19:30 Total Protein 7.8 gm/dl (6.4-8.2) 07/09/20 18:28 Albumin 3.8 gm/dl (3.4-5.0) 07/09/20 18:28 Globulin 4.0 gm/dl (2.5-4.0) 07/09/20 18:28 Albumin/Globulin Ratio 1.0 (0.9-2) 07/09/20 18:28 Lipase 192 U/L (73-393) 07/09/20 18:28 Urine Color Yellow 07/09/20 18:45 Urine Appearance Clear (Clear) 07/09/20 18:45 Urine pH 6.5 (4.5-7.5) 07/09/20 18:45 Ur Specific [place] 1.013 (1.000-1.030) 07/09/20 18:45 Urine Protein 1+ (Negative) H 07/09/20 18:45 Urine Glucose (UA) Negative (Negative) 07/09/20 18:45 Urine Ketones Negative (Negative) 07/09/20 18:45 Urine Blood Trace (Negative) H 07/09/20 18:45 Urine Nitrite Negative (Negative) 07/09/20 18:45 Urine Bilirubin Negative (Negative) 07/09/20 18:45 Urine Urobilinogen Negative (Negative) 07/09/20 18:45 Ur Leukocyte Esterase Negative (Negative) 07/09/20 18:45 Urine WBC (Auto) 0 /hpf (0-5) 10/16/20 18:45 Urine RBC (Auto) 0-4 /hpf (0-4) 07/09/20 18:45 U Hyaline Cast (Auto) 0 /lpf (0-5) 07/09/20 18:45 U Epithel Cells (Auto) 0-5 /lpf (0-5) 07/09/20 18:45 Urine Bacteria (Auto) Negative (Negative) 07/09/20 18:45 [phone] Report Patient: LARISSA LORENZO Date: 07/09/20 MR#: [id number]: [address] Acct ID:[id number]: Date: [address] Zip: [place] [id number] Age: 80Location: ED Sex: MRoom/Bed: Att Phy:Diagnosis: FALL Irina Phy: RV. Shelia, MDService Date: 07/09/20 Fam Phy:Interpreting Phy: Dez Munoz MD Admit Phy: Ordering Phy: Afshin Benitez, DO cc: ~ CT SCAN OF THE BRAIN WITHOUT IV CONTRAST CLINICAL HISTORY: Fall. Weakness. COMPARISON STUDY: No priors. TECHNIQUE: Unenhanced axial CT scan of the brain is performed from the vertex to the skull base. A dose lowering technique was utilized adhering to the principles of ALARA. FINDINGS: Brain parenchyma: There are age-related involutional changes noting moderate subcortical and periventricular microangiopathic change. A 3.6 cm arachnoid cyst is noted in the left temporal fossa. This causes minimal mass effect on the adjacent cortical sulci. There is no hemorrhage, midline shift, or evidence of acute territorial ischemia by CT criteria. [place]-white matter differentiation is preserved. No extra-axial fluid collection is seen. Ventricles, sulci, cisterns: Prominent secondary to involutional change. Intracranial vasculature: There is atherosclerotic calcification of the cavernous carotid and vertebral arteries. Calvarium: The skeletal structures are osteopenic. No depressed calvarial fracture is identified. Sinuses and mastoids: There is trace mucosal thickening within the maxillary antra and ethmoid sinuses. The remaining paranasal sinuses are clear. The mastoid air cells are well pneumatized. Orbits: The bony orbits are grossly intact. IMPRESSION: There is no hemorrhage, midline shift, or evidence of acute territorial ischemia by CT criteria. ACT 112: Negative or not required by law. Electronically signed by: Dez Munoz M.D. 07/09/2020 7:21 PM Dictated: 07/09/201917 Transcribed: 07/09/201917 [facility] [place] [phone] CT Scan Report Patient: LARISSA LORENZO Date: 07/09/20 MR#: [id number]: [address] Acct ID:[id number]: [facility] Zip[facility] [place] [address] Age: 80Location: ED Sex: MRoom/Bed: Att Phy:Diagnosis: FALL Irina Phy: RV. Shelia, MDService Date: 07/09/20 Fam Phy:Interpreting Phy: Dez Munoz MD Admit Phy: Ordering Phy: Afshin Benitez, cc: ~ CT SCAN OF THE LUMBAR SPINE WITHOUT IV CONTRAST CLINICAL HISTORY: Fall. Lower extremity weakness. COMPARISON STUDY: MRI of the lumbar spine dated 08/27/2018. TECHNIQUE: CT scan of the lumbar spine is performed from the lower thoracic spine to the sacrum. Images are reviewed in the axial, sagittal, and coronal planes. IV contrast was not administered for this examination. A dose lowering technique was utilized adhering to the principles of ALARA. CT DOSE: 1731.26 mGy.cm FINDINGS: The skeletal structures are osteopenic. There is no evidence of fracture or malalignment involving the lumbar spine. Vertebral body height is maintained throughout the lumbar spine. There is a mild chronic superior endplate compression deformity of T12. Alignment is preserved. Mild levocurvature centered at L3. Anterior and lateral marginal osteophytes are seen throughout. The transverse and spinous processes appear intact. No spondylolysis is seen. No lytic or blastic lesion is identified. Facet arthropathy is noted in the lower lumbar region. Moderate disc space narrowing is seen throughout the l umbar spine, greatest at L5-S1. Posterior disc osteophyte complexes are seen at all lumbar levels. This likely contributes to mild multilevel acquired compromise of the central canal, greatest at L4-L5 and L5-S1. The visualized sacrum and bony pelvis appear intact. Degenerative change is noted in the sacroiliac joints. There is fatty atrophy of the paraspinous musculature. Advanced atherosclerotic calcification is noted in the abdominal aorta. No retroperitoneal lymphadenopathy is seen. IMPRESSION: 1. No acute bony abnormality is seen involving the lumbar spine. 2. Osteopenia and spondylotic change as above. 3. Mild chronic superior endplate compression deformity of T12. ACT 112: Negative or not required by law. Electronically signed by: Dez Munoz M.D. 07/09/2020 7:27 PM Dictated: 07/09/201920 Transcribed: 07/09/201920 [place], [place] [phone] XRay Report Patient: LARISSA LORENZO Date: 07/09/20 MR#: [id number]: [address] Acct ID:[id number]: Date: [address] [place] [address] Zip: [place] [address] Age: 80Location: ED Sex: MRoom/Bed: Att Phy:Diagnosis: FALL Irina Phy: RV. Shelia, MDService Date: 07/09/20 Fam Phy:Interpreting Phy: Dez Munoz MD Admit Phy: Ordering Phy: Afshin Benitez, cc: ~ SINGLE VIEW CHEST CLINICAL HISTORY: Cough. FINDINGS: An AP, portable, upright chest radiograph is compared to study dated 07/13/2016. The examination is degraded by portable technique, apical lordotic positioning, and patient rotation. The heart is enlarged. The pulmonary vasculature is noncongested. Bibasilar airspace opacities likely represent atelectasis. No large pleural effusion or pneumothorax is seen. The skeletal structures are osteopenic. The bony thorax is grossly intact. IMPRESSION: 1. Cardiomegaly without radiographic evidence of congestive failure. 2. Bibasilar opacities likely represent atelectasis. Clinical correlation will be required. ACT 112: Negative or not required by law. Electronically signed by: Dez Munoz M.D. 07/09/2020 6:21 PM Dictated: 07/09/201818 Transcribed: 07/09/201818 Code Status & VTE Plan Code Status Full code VTE Prophylaxis Plan VTE Prophylaxis will be ordered: Yes PG Care Time/CCT Total # of Minutes Spent Total Time Spent with Patient: Total time spent is greater than 50% in coordination of care (as documented) at patient's floor/unit and/or counseling patient: Coding Level of Care Code 02012 Initial Inpt Care Lvl 3 Diagnoses Acute hyperkalemia E87.5 Acute kidney injury superimposed on chronic kidney disease N17.9; N18.9 Benign prostatic hyperplasia with urinary obstruction N40.1; N13.8 Coronary arteriosclerosis I25.10 Dyslipidemia E78.5 Hypertension I15.1; N28.89 Hypertension type: secondary to other renal disorders Hypothyroidism E03.9 Hypothyroidism type: unspecified Controlled type 2 diabetes mellitus with kidney complication, with long-term current use of insulin E11.29; Z79.4 Controlled type 2 diabetes mellitus with neurologic complication, with long-term current use of insulin E11.49; Z79.4 Weakness of both lower extremities R29.898 (1) Hypothyroidism Hypothyroidism type: unspecified Qualified Code(s): E03.9 - Hypothyroidism, unspecified (2) Hypertension Hypertension type: secondary to other renal disorders Qualified Code(s): I15.1 - Hypertension secondary to other renal disorders; N28.89 - Other specified disorders of kidney and ureter
[2020-07-09] MEDS ORDERED: CARBOHYDRATES FOR HYPOGLYCEMIA PO PRN (23:34)
[2020-07-09] MEDS ORDERED: ACETAMINOPHEN 325 MG TAB PO PRN (23:34)
[2020-07-09] MEDS ORDERED: GLUCAGON FOR INJ 1 MG VIAL SQ PRN (23:34)
[2020-07-09] MEDS ORDERED: GLUCOSE 10 TABS/TUBE PO PRN (23:34)
[2020-07-09] MEDS ORDERED: GLUCOSE 40% GEL 15 GM TUBE PO PRN (23:34)
[2020-07-09] MEDS ORDERED: ONDANSETRON INJ 2 MG/ML 2 ML VIAL IV PRN (23:34)
[2020-07-09] MEDS ORDERED: DEXTROSE 50% 50 ML SYRINGE IV PRN (23:34)
[2020-07-10] MEDS: METOPROLOL SUCC 25MG EXT REL TAB PO SCH ×2 (00:21→21:39)
[2020-07-10] MEDS: traMADol HCL 50 MG TABLET PO PRN ×2 (00:22→21:53)
[2020-07-10] MEDS: ALPRAZolam 0.5 MG TABLET PO SCH ×3 (00:22→21:42)
[2020-07-10] MEDS: TRIAMCINOLONE ACET 0.1% CR 15 GM TUBE TOP SCH ×3 (00:23→21:41)
[2020-07-10] MEDS: SIMVASTATIN 40 MG TAB PO SCH ×2 (00:24→21:40)
[2020-07-10] MEDS: EZETIMIBE 10 MG TABLET PO SCH ×3 (00:24→21:40)
[2020-07-10] MEDS: cloNIDine HCL 0.1 MG TAB PO SCH ×2 (00:25→21:42)
[2020-07-10] MEDS: DESMOPRESSIN ACETATE 0.1 MG TAB PO SCH ×2 (00:25→21:40)
[2020-07-10 01:21] LABS: BUN Creatinine Ratio 17.9 (10-20); Calcium 9.5 mg/dl (8.5-10.1); Creatinine Clr Calc Pharmacy 18.8 ml/min; Est GFR (African American) 17.6; Est GFR (Non-African American) 15.2; Potassium 5.9 mmol/L (3.5-5.1)
[2020-07-10] MEDS ORDERED: SODIUM CHLORIDE 0.9% 1000ML 1,000 ML IV SCH (04:45)
[2020-07-10] MEDS: LEVOTHYROXINE SODIUM 50 MCG TABLET PO SCH (06:09)
[2020-07-10 06:42] LABS: Hematocrit (blood only) 38.5 % (42-52); Hemoglobin 12.2 g/dL (14.0-18.0); Mean Corpuscular Hemoglobin 29.1 pg (25-34); Mean Corpuscular Hgb Conc 31.7 g/dL (32-36); Mean Corpuscular Volume 91.9 fL (80-100); Mean Platelet Volume 10.8 fL (7.4-10.4); Platelet Count 216 K/uL (130-400); RDW Coefficient of Variation 15.1 % (11.5-14.5); RDW Standard Deviation 51.1 fL (36.4-46.3); Red Blood Count 4.19 M/uL (4.7-6.1); White Blood Count 6.16 K/uL (4.8-10.8)
[2020-07-10 07:18] LABS: BUN Creatinine Ratio 17.1 (10-20); Calcium 9.1 mg/dl (8.5-10.1); Est GFR (African American) 18.2; Est GFR (Non-African American) 15.7; Magnesium 2.1 mg/dl (1.8-2.4); Phosphorus 3.6 mg/dl (2.5-4.9); Potassium 6.3 mmol/L (3.5-5.1)
[2020-07-10 07:32] LABS: Estimated Average Glucose 157 mg/dl; Hemoglobin A1C 7.1 % (4.5-5.6)
[2020-07-10] MEDS: PATIROMER CALCIUM SORBITEX 8.4 GM PACK PO SCH (08:06)
[2020-07-10] MEDS: ASPIRIN 81 MG ECTAB PO SCH (08:07)
[2020-07-10] MEDS: FINASTERIDE 5 MG TAB PO SCH (08:07)
[2020-07-10] MEDS: TIMOLOL MALEATE 0.25% OP SOLN 5 ML BTL OP SCH (08:09)
[2020-07-10] MEDS: INSULIN ASPART 100 UNITS/ML 3 ML PEN SC SCH ×4 (08:12→21:46)
[2020-07-10] MEDS: AZITHROMYCIN 500 MG in DEXTROSE 5% 250 ML IV SCH (08:19)
[2020-07-10] MEDS ORDERED: Nursing to Pharmacy Communication SCH (08:30)
[2020-07-10] MEDS ORDERED: MELOXICAM 7.5 MG TAB PO SCH (09:00)
[2020-07-10] MEDS: amLODIPine BESYLATE 5 MG TAB PO SCH (09:05)
[2020-07-10] MEDS: HEPARIN SOD 5,000 UNIT/0.5 ML VIAL SQ SCH ×2 (09:05→21:38)
--- NOTE | 2020-07-10 10:07 | Electrocardiogram Report ---
Test Reason : Blood Pressure : / mmHG Vent. Rate : 059 BPM Atrial Rate : 059 BPM P-R Int : 198 ms QRS Dur : 130 ms QT Int : 428 ms P-R-T Axes : 024 -41 051 degrees QTc Int : 423 ms Sinus bradycardia Left axis deviation Left ventricular hypertrophy with QRS widening Cannot rule out Septal infarct , age undetermined Abnormal ECG When compared with ECG of 30-JUL-2014 06:27, Minimal criteria for Septal infarct are now Present Confirmed by Damon Webb ([id number]) on 07/10/2020 10:06:50 AM Referred By: Orly Andrews Confirmed By:Damon Webb
--- NOTE | 2020-07-10 10:16 | Electrocardiogram Report ---
Test Reason : Blood Pressure : / mmHG Vent. Rate : 063 BPM Atrial Rate : 063 BPM P-R Int : 186 ms QRS Dur : 116 ms QT Int : 424 ms P-R-T Axes : -25 -35 044 degrees QTc Int : 433 ms Normal sinus rhythm Left axis deviation Left ventricular hypertrophy with QRS widening Septal infarct (cited on or before 09-JUL-2020) Abnormal ECG When compared with ECG of 09-JUL-2020 19:33, (unconfirmed) No significant change was found Confirmed by Damon Webb ([id number]) on 07/10/2020 10:16:33 AM Referred By: Orly Andrews Confirmed By:Damon Webb
--- NOTE | 2020-07-10 12:27 | Nephrology Consultation ---
Date of Consultation July 10, 2020 Assessment & Plan (1) Acute hyperkalemia: * Stop Lisinopril, K-citrate and Mobic * Veltassa has been redosed this am * Will add NaHCO3 to IVF * Low K diet * Monitor PRP (2) JV (acute kidney injury): * Resolved. Suspect mild intravascular volume contraction (3) CKD (chronic kidney disease): * Baseline Cr 3.0 - 3.5 due to diabetic nephropathy (4) Hypertension: * Blood pressure is currently well controlled * Hold Lisinopril. Will need outpatient evaluation to determine whether to continue or if lower dose is indicated * Continue amlodipine, clonidine (5) Nephrolithiasis: * Hold K-citrate. Will need outpatient evaluation to determine whether to continue of if lower dose is indicated (6) Osteoarthritis: * Hold Mobic History of Present Illness Reason for Consultation: CKD, hyperkalemia Attending Physician: Bob Almonte MD History of Present Illness Mr. Gaviria is a 80 year old white male who is seen at the request of Dr. Blackwood to assist in the management of CKD and hyperkalemia. 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 Baseline Cr has risen to 3.0 - 3.5 w/ EGFR 15.7 cc/min. His renal impairment is attributed to diabetic nephropathy. His primary Archeologist [facility] is Dr. Bazzi. Mr. Gaviria's medical history is also significant for kidney stones managed w/ K-citrate, HTN treated w/ Lisinopril, OA managed w/ Mobic therapy, hypothyroidism, BPH, hypercholesterolemia and ASCVD. Mr. Gaviria presented to the ED yesterday evening for evaluation of LE weakness. Laboratory testing revealed K 7.3, Cr 4.0 and Hgb 13.3. ECG revealed HR 59 bpm w/ normal VA, QRS intervals. T-waves were mildly peaked in the anterior leads. Veltassa, Ca gluconate, sodium bicarbonate, dextrose and insulin were administered in the ED. Admission to the hospitalist service was advised for continued medical management of hyperkalemia Allergies Allergy/AdvReac Type Severity Reaction Status Date / Time adhesive Allergy Unknown DERMATITIS Verified 07/09/20 21:03 latex Allergy Unknown SKIN Verified 07/09/20 21:03 IRRITATION Home Medications Home Medications Medication Instructions Recorded Confirmed Type aspirin 81 mg tablet 81 mg PO DAILY tab 04/25/19 07/09/20 History insulin syringe,safetyneedle 0.3 #100 ea 04/25/19 06/04/20 History mL 31 gauge x 15/64" pen needle, diabetic 31 gauge x #30 ea 04/25/19 06/04/20 History 3/16" sildenafil 100 mg tablet 100 mg PO DAILY PRN #40 tab 04/25/19 07/09/20 History timolol 0.25 % eye drops 1 drops OP DAILY ml 04/25/19 07/09/20 History ezetimibe 10 mg tablet 10 mg PO DAILY #90 tab 08/04/19 07/09/20 Rx blood sugar diagnostic See Rx Instructions .ROUTE 08/08/19 06/01/20 Rx .COMPLEX #500 unspecified simvastatin 40 mg tablet 40 mg PO HS #90 tab 10/06/19 07/09/20 Rx metoprolol succinate 50 mg 50 mg PO .COMPLEX #135 tab 11/24/19 07/09/20 Rx tablet,extended release 24 hr nystatin 100,000 unit/gram topical 1 appln TOP BID #30 gm 01/20/20 07/09/20 Rx cream triamcinolone acetonide 0.1 % 1 appln TOP BID #80 gm 01/20/20 07/09/20 Rx topical cream Levemir FlexTouch U-100 Insuln 100 48 units SQ HS #45 ml NS 01/23/20 07/09/20 Rx unit/mL (3 mL) subcutaneous pen levothyroxine 50 mcg tablet 50 mcg PO .COMPLEX #90 tab 02/08/20 07/09/20 Rx tamsulosin 0.4 mg capsule 0.4 mg PO DAILY #90 cap 04/05/20 07/09/20 Rx meloxicam 15 mg tablet 15 mg PO DAILY #90 tab 04/20/20 07/09/20 Rx finasteride 5 mg tablet 5 mg PO DAILY #90 tab 04/21/20 07/09/20 Rx tramadol 50 mg tablet 50 mg PO .COMPLEX #90 tab 05/24/20 07/09/20 Rx potassium citrate 10 mEq (1,080 10 meq PO BID tab 06/04/20 07/09/20 History mg) tablet,extended release amlodipine 5 mg tablet 5 mg PO DAILY #90 tab 06/07/20 07/09/20 Rx lisinopril 40 mg tablet 40 mg PO DAILY #90 tab 06/09/20 07/09/20 Rx FreeStyle Ritchie 14 Day [place] #1 ea NS 06/24/20 Rx FreeStyle Ritchie 14 Day Sensor #2 ea NS 06/24/20 Rx alprazolam 0.5 mg PO BID 07/09/20 07/09/20 History clonidine HCl 0.1 mg PO QPM 07/09/20 07/09/20 History desmopressin 0.2 mg PO HS 07/09/20 07/09/20 History insulin regular human [Novolin R 0 units SQ TIDM 07/09/20 07/09/20 History Regular U-100 Insuln] Patient History Medical History Anemia Benign prostatic hyperplasia with urinary obstruction Controlled type 2 diabetes mellitus with kidney complication, 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, with long-term current use of insulin Coronary arteriosclerosis Cyst of kidney, acquired Diverticulosis of colon Dyslipidemia Generalized osteoarthritis Hydrocele Hypertension Hypothyroidism Internal hemorrhoids Obesity, Class II, BMI 35-39.9 Right leg swelling Stage III chronic kidney disease Surgical History History of colonoscopy History of ear surgery Tympanic membrane repair History of exploratory laparotomy History of inguinal hernia repair History of prostate surgery History of total knee arthroplasty History of umbilical hernia repair Family History Father Cancer of kidney Hypertension Cardiac disorder Family/Other Cancer of kidney Bone cancer Mother Bone cancer Cardiac disorder Hypertension Social History Smoking Status: Former smoker Hx Alcohol Use: No Hx Substance Use: No Preferred Language: Togolese Communication Ability: Effective Visual Impairment: No Limitations Hearing Ability: Normal Beliefs That Will Affect Care: None marital status: Current Living Situation: Spouse current occupational status: employed 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 Other Information That Helps Us Care for You: No Feels Safe at Home: Yes Safety Concerns: Feels Safe At This Time Seatbelt Use: always Assistive Devices: Glasses and Walker Review of Systems Constitutional: + weakness; no fever Eyes: no problem reported Ear, Nose, Mouth, Throat: no problem reported Respiratory: no dyspnea Cardiovascular: no chest pain, no palpitations and no edema Gastrointestinal: no abdominal pain, no vomiting and no diarrhea/loose stools Genitourinary: no dysuria, no urinary hesitancy and no hematuria Musculoskeletal: no back pain Integumentary: no rash Neurologic: no dizziness and no confusion Physical Exam Constitutional: not in distress Eyes: PERRL, conjunctivae normal, anicteric sclerae ENMT: external ear and nose normal, oropharynx normal Neck: trachea midline, no thyromegaly Respiratory: normal respiratory effort, lungs clear to auscultation Cardiovascular: RRR, no murmur, no edema Gastrointestinal (Abdomen): normal bowel sounds, soft, nontender, no hepatosplenomegaly Musculoskeletal: Extremities: no cyanosis Skin: no rashes, warm and dry Neurologic: awake; not confused Results & Data ([facility]) Vital Signs (Past 12 Hours) Vital Signs Temp Pulse Pulse Resp BP Pulse Ox 07/10/20 07:38 36.7 C 65 18 100/64 95 07/10/20 07:18 63 07/10/20 04:14 95/56 L 07/10/20 04:11 36.6 C 67 18 96/57 L 93 07/10/20 01:09 36.6 C 76 20 153/71 H 95 Laboratory Results Laboratory Tests 07/10/20 07/10/20 06:20 06:20 WBC 6.16 Hgb 12.2 L Hct 38.5 L Plt Count 216 Sodium 138 Potassium 6.3 H* Chloride 113 H Carbon Dioxide 18 L BUN 60 H Creatinine 3.50 H Glucose 148 H PG Care Time/CCT Total # of Minutes Spent Total Time Spent with Patient: Total time spent is greater than 50% in coordination of care (as documented) at patient's floor/unit and/or counseling patient: Coding Level of Care Code 75108 Inpt Consult Level 5 Diagnoses Acute hyperkalemia E87.5 JV (acute kidney injury) N17.9 CKD (chronic kidney disease) N18.9 Chronic kidney disease stage: unspecified stage Hypertension I15.1; N28.89 Hypertension type: secondary to other renal disorders Nephrolithiasis N20.0 Osteoarthritis M19.90 (1) CKD (chronic kidney disease) Chronic kidney disease stage: unspecified stage Qualified Code(s): N18.9 - Chronic kidney disease, unspecified (2) Hypertension Hypertension type: secondary to other renal disorders Qualified Code(s): I15.1 - Hypertension secondary to other renal disorders; N28.89 - Other specified disorders of kidney and ureter
[2020-07-10] MEDS: SODIUM BICARBONATE 8.4% 75 MEQ in SODIUM CHLORIDE 0.45 % 1,000 ML IV SCH (12:34)
[2020-07-10] MEDS: traMADol HCL 50 MG TABLET PO SCH (13:55)
--- NOTE | 2020-07-10 15:16 | Hospitalist Progress Note ---
Date of Service July 10, 2020 Assessment & Plan (1) Acute hyperkalemia: Potassium above 7 on admission This morning potassium was 6.3 Veltassa was redosed this morning by nephrology Sodium bicarbonate was added to IV fluids Follow serial labs Lisinopril, K citrate, and meloxicam has been held Baseline creatinine is 5.6-5.9 (2) Acute kidney injury superimposed on chronic kidney disease: This is resolved. His baseline creatinine is 3.0-3.5 Secondary to diabetic nephropathy Hemoglobin A1c is 7.1 Follow serial lab (3) Weakness of both lower extremities: Unknown etiology Does not appear to have any neurological deficits Physical therapy was ordered today Continue to manage electrolytes Wait for physical therapy report (4) Hypertension: Patient with known coronary artery sclerosis Hemodynamically stable with a blood pressure of 119/70 when last checked Continue usual home meds Follow on telemetry (5) Osteoarthritis: Hold Mobic at this time due to hyperkalemia Ambulate as tolerated Physical therapy (6) Hypothyroidism: Continue levothyroxine (7) Dyslipidemia: Continue ezetimibe (8) Controlled type 2 diabetes mellitus with kidney complication, with long-term current use of insulin: Hemoglobin A1c 7.1 Continue home insulin including Novolin are and Levemir Diabetic diet Sliding scale insulin using NovoLog (9) DVT prophylaxis: Heparin 5000 units subcu twice daily Ambulate as tolerated Please refer to Dr. Almonte's addendum for further recommendations. (10) Abnormal chest x-ray: Chest x-ray with question of bilateral pulmonary opacities This is most likely atelectasis based on appearance Patient has no cough or productive sputum Afebrile No leukocytosis Will start incentive spirometry Encourage ambulation No additional oxygen requirements Follow supportively Admission and Anticipated Discharge Date Admission Date: July 09, 2020 Subjective Attending: Dr. Bob Almonte This is a 80-year-old male. 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 Recently has been having difficulty with his legs feeling weak with long periods of standing. He called off work because he was concerned that he could not last the shift. He was advised to come to the emergency department to rule out CVA and other etiologies. He was found to have hyperkalemia with a potassium of 7.3. This was treated and repeat potassium showed 5.9 with a.m. labs revealing a potassium was 6.3. Patient reports that he had a tremor of his lower extremities which is now resolved. He was able to walk to the restroom and aside from some weakness had no specific issues. He has not been seen by physical therapy as of yet. He does have a chronic potassium that is elevated in the 5.6-5.9 range. He is followed by Dr. Bazzi from nephrology. He denies any chest pain or tightness. He has no tremor of the upper extremities. He has no muscle cramping. He denies any fever, chills, sweats, rigors. He is putting out good urine. He has no hematuria. He has no other acute complaints at this time. Review of Systems Review of Systems: All systems reviewed & are unremarkable except as noted in Subjective Physical Exam Physical Exam: GENERAL : No acute distress. Pleasant. No conversational dyspnea EYES: No icterus, gaze conjugate. Pupils equal round and reactive to light NOSE: No evidence of epistaxis MOUTH: No lesions or candidiasis. Tongue is midline. No facial droop. NECK: Supple. LUNGS: CTA B/L, no wheezes, rales or rhonchi. Good inspirational effort HEART: Regular, rate controlled. Heart rate is in the 50s. No appreciation of ectopy or murmur ABDOMEN: Soft, NT, ND, BS Present. EXTREMITIES: No LE edema, pedal pulses intact NEURO: A&OX3. Negative for pronator drift. Cerebellar function intact with [id number] and alternating movements. Gait and Romberg are deferred. Cranial nerves II through XII appear grossly intact without focal deficit Results & Data Results & Data ([facility]) Vital Signs (Past 12 Hours) Vital Signs Temp Pulse Pulse Resp BP BP Pulse Ox 07/10/20 12:15 37.3 C 53 L 18 119/70 97 07/10/20 07:38 36.7 C 65 18 100/64 95 07/10/20 07:18 63 07/10/20 04:14 95/56 L 07/10/20 04:11 36.6 C 67 18 96/57 L 93 Laboratory Results 07/10/20 06:20 07/10/20 06:[address] SCAN OF THE BRAIN WITHOUT IV CONTRAST CLINICAL HISTORY: Fall. Weakness. COMPARISON STUDY: No priors. TECHNIQUE: Unenhanced axial CT scan of the brain is performed from the vertex to the skull base. A dose lowering technique was utilized adhering to the principles of ALARA. FINDINGS: Brain parenchyma: There are age-related involutional changes noting moderate subcortical and periventricular microangiopathic change. A 3.6 cm arachnoid cyst is noted in the left temporal fossa. This causes minimal mass effect on the adjacent cortical sulci. There is no hemorrhage, midline shift, or evidence of acute territorial ischemia by CT criteria. [place]-white matter differentiation is preserved. No extra-axial fluid collection is seen. Ventricles, sulci, cisterns: Prominent secondary to involutional change. Intracranial vasculature: There is atherosclerotic calcification of the cavernous carotid and vertebral arteries. Calvarium: The skeletal structures are osteopenic. No depressed calvarial fracture is identified. Sinuses and mastoids: There is trace mucosal thickening within the maxillary antra and ethmoid sinuses. The remaining paranasal sinuses are clear. The mastoid air cells are well pneumatized. Orbits: The bony orbits are grossly intact. IMPRESSION: There is no hemorrhage, midline shift, or evidence of acute territorial ischemia by CT criteria. ACT 112: Negative or not required by law. Electronically signed by: Dez Munoz M.D. 07/09/2020 7:21 PM SINGLE VIEW CHEST CLINICAL HISTORY: Cough. FINDINGS: An AP, portable, upright chest radiograph is compared to study dated 07/13/2016. The examination is degraded by portable technique, apical lordotic positioning, and patient rotation. The heart is enlarged. The pulmonary vasculature is noncongested. Bibasilar airspace opacities likely represent atelectasis. No large pleural effusion or pneumothorax is seen. The skeletal structures are osteopenic. The bony thorax is grossly intact. IMPRESSION: 1. Cardiomegaly without radiographic evidence of congestive failure. 2. Bibasilar opacities likely represent atelectasis. Clinical correlation will b e required. Electronically signed by: Dez Munoz M.D. 07/09/2020 6:21 PM PG Care Time/CCT Total # of Minutes Spent Total Time Spent with Patient: Total time spent is greater than 50% in coordination of care (as documented) at patient's floor/unit and/or counseling patient: 30 minutes Coding Level of Care Code 57035 Subseq Hosp Care Lvl 2 Diagnoses Acute hyperkalemia E87.5 Acute kidney injury superimposed on chronic kidney disease N17.9; N18.9 Weakness of both lower extremities R29.898 Hypertension I15.1; N28.89 Hypertension type: secondary to other renal disorders Osteoarthritis M19.90 Hypothyroidism E03.9 Hypothyroidism type: unspecified Dyslipidemia E78.5 Controlled type 2 diabetes mellitus with kidney complication, with long-term current use of insulin E11.29; Z79.4 DVT prophylaxis Z29.9 Abnormal chest x-ray R93.89 Time Spent (min) 30 (1) Hypothyroidism Hypothyroidism type: unspecified Qualified Code(s): E03.9 - Hypothyroidism, unspecified (2) Hypertension Hypertension type: secondary to other renal disorders Qualified Code(s): I15.1 - Hypertension secondary to other renal disorders; N28.89 - Other specified disorders of kidney and ureter
[2020-07-10 15:54] LABS: BUN Creatinine Ratio 18.6 (10-20); Calcium 9.4 mg/dl (8.5-10.1); Creatinine Clr Calc Pharmacy 19.2 ml/min; Est GFR (African American) 17.3; Est GFR (Non-African American) 14.9
[2020-07-10 17:12] LABS: Potassium 6.3 mmol/L (3.5-5.1)
--- NOTE | 2020-07-10 20:10 | Urology Consultation ---
Date of Consultation July 10, 2020 Assessment & Plan (1) Acute kidney injury superimposed on chronic kidney disease: (2) Benign prostatic hyperplasia with urinary obstruction: Dose of Flomax was increased to 2 daily in combination with the Finasteride. Given the large volume at time of banda insertion, he likely has been dealing with BPH/Incomplete emptying chronically Rec leaving banda in place until Cr reaches hernandez. Can f/u as outpt for void trial in 1-2 weeks KADI to eval for hydro History of Present Illness Attending Physician: Bob Almonte MD 80 y/o male admitted with generalized weakness of both legs, the has been worsening over the past few days, affecting his ambulation even with the use of his cane. Upon evaluation in the ED labs were drawn which showed an elevated Cr and elevated potassium. A banda catheter was inserted and 1200cc of clear urine drained initially. The patient has a hx of BPH and normally follows with Dr. Miranda as an outpt. He takes Finasteride and Flomax. He has been getting regular prostate checks in the past with ALIX and PSAs. He states that prior to today he was voiding normally. Slower stream. Nocturia x4. Some urge and freq with occ feeling of incomplete emptying. He denied any new medication. No fevers. No chills. No hematuria. No dysuria. Since admission the urine has been draining well. No imaging of the kidneys noted. Allergies Allergy/AdvReac Type Severity Reaction Status Date / Time adhesive Allergy Unknown DERMATITIS Verified 07/09/20 21:03 latex Allergy Unknown SKIN Verified 07/09/20 21:03 IRRITATION Home Medications Home Medications Medication Instructions Recorded Confirmed Type aspirin 81 mg tablet 81 mg PO DAILY tab 04/25/19 07/09/20 History insulin syringe,safetyneedle 0.3 #100 ea 04/25/19 06/04/20 History mL 31 gauge x 15/64" pen needle, diabetic 31 gauge x #30 ea 04/25/19 06/04/20 History 3/16" sildenafil 100 mg tablet 100 mg PO DAILY PRN #40 tab 04/25/19 07/09/20 History timolol 0.25 % eye drops 1 drops OP DAILY ml 04/25/19 07/09/20 History ezetimibe 10 mg tablet 10 mg PO DAILY #90 tab 08/04/19 07/09/20 Rx blood sugar diagnostic See Rx Instructions .ROUTE 08/08/19 06/01/20 Rx .COMPLEX #500 unspecified simvastatin 40 mg tablet 40 mg PO HS #90 tab 10/06/19 07/09/20 Rx metoprolol succinate 50 mg 50 mg PO .COMPLEX #135 tab 11/24/19 07/09/20 Rx tablet,extended release 24 hr nystatin 100,000 unit/gram topical 1 appln TOP BID #30 gm 01/20/20 07/09/20 Rx cream triamcinolone acetonide 0.1 % 1 appln TOP BID #80 gm 01/20/20 07/09/20 Rx topical cream Levemir FlexTouch U-100 Insuln 100 48 units SQ HS #45 ml NS 01/23/20 07/09/20 Rx unit/mL (3 mL) subcutaneous pen levothyroxine 50 mcg tablet 50 mcg PO .COMPLEX #90 tab 02/08/20 07/09/20 Rx tamsulosin 0.4 mg capsule 0.4 mg PO DAILY #90 cap 04/05/20 07/09/20 Rx meloxicam 15 mg tablet 15 mg PO DAILY #90 tab 04/20/20 07/09/20 Rx finasteride 5 mg tablet 5 mg PO DAILY #90 tab 04/21/20 07/09/20 Rx tramadol 50 mg tablet 50 mg PO .COMPLEX #90 tab 05/24/20 07/09/20 Rx potassium citrate 10 mEq (1,080 10 meq PO BID tab 06/04/20 07/09/20 History mg) tablet,extended release amlodipine 5 mg tablet 5 mg PO DAILY #90 tab 06/07/20 07/09/20 Rx lisinopril 40 mg tablet 40 mg PO DAILY #90 tab 06/09/20 07/09/20 Rx FreeStyle Ritchie 14 Day [place] #1 ea NS 06/24/20 Rx FreeStyle [place]itchie 14 Day Sensor #2 ea NS 06/24/20 Rx alprazolam 0.5 mg PO BID 07/09/20 07/09/20 History clonidine HCl 0.1 mg PO QPM 07/09/20 07/09/20 History desmopressin 0.2 mg PO HS 07/09/20 07/09/20 History insulin regular human [Novolin R 0 units SQ TIDM 10/16/20 10/16/20 History Regular U-100 Insuln] Patient History Medical History Anemia Benign prostatic hyperplasia with urinary obstruction Controlled type 2 diabetes mellitus with kidney complication, 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, with long-term current use of insulin Coronary arteriosclerosis Cyst of kidney, acquired Diverticulosis of colon Dyslipidemia Generalized osteoarthritis Hydrocele Hypertension Hypothyroidism Internal hemorrhoids Obesity, Class II, BMI 35-39.9 Right leg swelling Stage III chronic kidney disease Surgical History History of colonoscopy History of ear surgery Tympanic membrane repair History of exploratory laparotomy History of inguinal hernia repair History of prostate surgery History of total knee arthroplasty History of umbilical hernia repair Family History Father Cancer of kidney Hypertension Cardiac disorder Family/Other Cancer of kidney Bone cancer Mother Bone cancer Cardiac disorder Hypertension Social History Smoking Status: Former smoker Hx Alcohol Use: No Hx Substance Use: No Preferred Language: Colombian Communication Ability: Effective Visual Impairment: No Limitations Hearing Ability: Normal Beliefs That Will Affect Care: None marital status: Current Living Situation: Spouse current occupational status: employed 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 Other Information That Helps Us Care for You: No Feels Safe at Home: Yes Safety Concerns: Feels Safe At This Time Seatbelt Use: always Assistive Devices: Walker Review of Systems Review of Systems: All systems reviewed & are unremarkable except as noted in HPI & below Physical Exam Constitutional: WD/WN, vitals as above Eyes: PERRL, conjunctivae normal, anicteric sclerae ENMT: external ear and nose normal, oropharynx normal Neck: trachea midline, no thyromegaly Respiratory: normal respiratory effort, lungs clear to auscultation Cardiovascular: RRR, no murmur, no edema Gastrointestinal (Abdomen): normal bowel sounds, soft, nontender, no hepatosplenomegaly Skin: no rashes, warm and dry Neurologic: patellar DTR's 2+ bilat, sensation intact Genitourinary: no testicular masses, no penis abnormality Lymphatic: no cervical or axillary lymphadenopathy Results & Data ([facility]) Vital Signs (Past 12 Hours) Vital Signs Temp Pulse Pulse Resp BP Pulse Ox 07/10/20 18:55 36.7 C 64 19 146/77 H 96 07/10/20 16:18 36.5 C 58 L 18 131/74 98 07/10/20 15:18 55 L 07/10/20 12:15 37.3 C 53 L 18 119/70 97 PG Care Time/CCT Total # of Minutes Spent Total Time Spent with Patient: Total time spent is greater than 50% in coordination of care (as documented) at patient's floor/unit and/or counseling patient: 30 Coding Level of Care Code 53577 Initial Inpt Care Lvl 3 Diagnoses Acute kidney injury superimposed on chronic kidney disease N17.9; N18.9 Benign prostatic hyperplasia with urinary obstruction N40.1; N13.8
[2020-07-10] MEDS ORDERED: INSULIN DETEMIR FLEXPEN/FLEX TOUCH 100 UNITS/ML 3ML SQ SCH (21:00)
[2020-07-10] MEDS ORDERED: cefTRIAXone SODIUM 2,000 MG in DEXTROSE 5% 50 ML IV SCH (21:00)
[2020-07-10] MEDS: TAMSULOSIN HCL 0.4 MG CAP PO SCH (21:39)
[2020-07-11] MEDS: SODIUM BICARBONATE 8.4% 75 MEQ in SODIUM CHLORIDE 0.45 % 1,000 ML IV SCH ×2 (01:00→16:18)
[2020-07-11] MEDS: LEVOTHYROXINE SODIUM 50 MCG TABLET PO SCH (05:39)
[2020-07-11] MEDS: TRIAMCINOLONE ACET 0.1% CR 15 GM TUBE TOP SCH ×2 (08:06→21:45)
[2020-07-11] MEDS: HEPARIN SOD 5,000 UNIT/0.5 ML VIAL SQ SCH ×2 (08:08→21:47)
[2020-07-11] MEDS: ALPRAZolam 0.5 MG TABLET PO SCH ×2 (08:08→21:46)
[2020-07-11] MEDS: AZITHROMYCIN 500 MG in DEXTROSE 5% 250 ML IV SCH (08:08)
[2020-07-11] MEDS: ASPIRIN 81 MG ECTAB PO SCH (08:09)
[2020-07-11] MEDS: amLODIPine BESYLATE 5 MG TAB PO SCH ×2 (08:09→09:13)
[2020-07-11] MEDS: TIMOLOL MALEATE 0.25% OP SOLN 5 ML BTL OP SCH (08:11)
[2020-07-11] MEDS: FINASTERIDE 5 MG TAB PO SCH (08:11)
[2020-07-11 08:13] LABS: BUN Creatinine Ratio 18.3 (10-20); Calcium 9.6 mg/dl (8.5-10.1); Creatinine Clr Calc Pharmacy 20.7 ml/min; Est GFR (African American) 18.8; Est GFR (Non-African American) 16.2; Potassium 5.3 mmol/L (3.5-5.1)
[2020-07-11] MEDS: INSULIN ASPART 100 UNITS/ML 3 ML PEN SC SCH ×4 (08:18→21:02)
[2020-07-11] MEDS: PATIROMER CALCIUM SORBITEX 8.4 GM PACK PO SCH (09:13)
--- NOTE | 2020-07-11 10:07 | Nephrology Progress Note ---
Date of Service July 11, 2020 Assessment & Plan (1) Acute hyperkalemia: * Continue to hold Lisinopril, K-citrate and Mobic * Veltassa was redosed this am * Will add potassium restriction to diet order * Monitor PRP (2) JV (acute kidney injury): * Resolved. Suspect mild intravascular volume contraction (3) CKD (chronic kidney disease): * Baseline Cr 3.0 - 3.5 due to diabetic nephropathy (4) Hypertension: * Blood pressure is currently well controlled * Hold Lisinopril. Will need outpatient evaluation to determine whether to continue or if lower dose is indicated * Continue amlodipine, clonidine (5) Nephrolithiasis: * Hold K-citrate. Will need outpatient evaluation to determine whether to continue of if lower dose is indicated (6) Osteoarthritis: * Hold Mobic (7) BPH (benign prostatic hyperplasia): * Flomax dose increased. Patient remains on Finasteride * Urology recommends keeping Danielson in and pursuing outpatient voiding trial in 1-2 weeks Admission and Anticipated Discharge Date Admission Date: July 09, 2020 Subjective Mr. Gaviria was seen & evaluated in his hospital room this morning. His potassium remains mildly elevated. Veltassa was administered this am in orange juice. Mr. Gaviria voices no new medical concerns. Review of Systems 2 Constitutional: + weakness; no fever Eyes: no problem reported Ear, Nose, Mouth, Throat: no problem reported Respiratory: no dyspnea Cardiovascular: no chest pain, no palpitations and no edema Gastrointestinal: no abdominal pain, no nausea and no diarrhea/loose stools Genitourinary: no hematuria Musculoskeletal: no back pain Integumentary: no rash Neurologic: no dizziness and no confusion Physical Exam Constitutional: not in distress Eyes: PERRL, conjunctivae normal, anicteric sclerae ENMT: external ear and nose normal, oropharynx normal Neck: trachea midline, no thyromegaly Respiratory: normal respiratory effort, lungs clear to auscultation Cardiovascular: RRR, no murmur, no edema Gastrointestinal (Abdomen): normal bowel sounds, soft, nontender, no hepatosplenomegaly Musculoskeletal: Extremities: no cyanosis Skin: no rashes, warm and dry Neurologic: awake; not confused Results & Data ([facility]) Vital Signs (Past 12 Hours) Vital Signs Temp Pulse Resp BP BP Pulse Ox 07/11/20 03:23 36.7 C 54 L 19 93/55 L 92 07/10/20 23:15 36.4 C L 64 16 134/75 95 Laboratory Results Laboratory Tests 07/11/20 07:23 Sodium 135 L Potassium 5.3 H D Chloride 106 Carbon Dioxide 21 BUN 62 H Creatinine 3.40 H Glucose 129 H PG Care Time/CCT Total # of Minutes Spent Total Time Spent with Patient: Total time spent is greater than 50% in coordination of care (as documented) at patient's floor/unit and/or counseling patient: Coding Level of Care Code 34511 Subseq Hosp Care Lvl 3 Diagnoses Acute hyperkalemia E87.5 JV (acute kidney injury) N17.9 CKD (chronic kidney disease) N18.9 Chronic kidney disease stage: unspecified stage Hypertension I15.1; N28.89 Hypertension type: secondary to other renal disorders Nephrolithiasis N20.0 Osteoarthritis M19.90 BPH (benign prostatic hyperplasia) N40.0 (1) CKD (chronic kidney disease) Chronic kidney disease stage: unspecified stage Qualified Code(s): N18.9 - Chronic kidney disease, unspecified (2) Hypertension Hypertension type: secondary to other renal disorders Qualified Code(s): I15.1 - Hypertension secondary to other renal disorders; N28.89 - Other specified disorders of kidney and ureter
--- NOTE | 2020-07-11 10:54 | Electrocardiogram Report ---
Test Reason : Blood Pressure : / mmHG Vent. Rate : 062 BPM Atrial Rate : 062 BPM P-R Int : 186 ms QRS Dur : 118 ms QT Int : 430 ms P-R-T Axes : -23 -38 042 degrees QTc Int : 436 ms Normal sinus rhythm Left axis deviation Left ventricular hypertrophy with QRS widening Cannot rule out Septal infarct (cited on or before 09-JUL-2020) Abnormal ECG When compared with ECG of 10-JUL-2020 06:36, No significant change was found Confirmed by Memo Motley ([id number]) on 07/11/2020 10:54:08 AM Referred By: Orly Andrews Confirmed By:Memo Motley
[2020-07-11] MEDS: traMADol HCL 50 MG TABLET PO SCH (14:16)
--- NOTE | 2020-07-11 15:55 | Hospitalist Progress Note ---
Date of Service July 11, 2020 Assessment & Plan (1) Acute hyperkalemia: Admission laboratories: Potassium 7.3, creatinine of 4.09, with range 2.82-3.57. - We will hold lisinopril 40 mg daily, meloxicam 15 mg daily and potassium citrate 10 mEq twice daily. - Continue Veltassa 8.4 mg p.o. daily. Repeat BMP today shows K: 5.3. Dr. Cid would like K < 5.0 before being discharge. Note: Discharge with Danielson in place. Follow up with urology in 1-2 weeks. (2) Acute kidney injury superimposed on chronic kidney disease: This is resolved. His baseline creatinine is 3.0-3.5. Secondary to diabetic nephropathy. - Consult nephrology. (3) Weakness of both lower extremities: CT lumbar spine did not show any significant spinal stenosis to suggest connection between urinary retention and his subjective lower extremity weakness and tremor. - PT/OT (4) Hypertension: See above (5) Osteoarthritis: (6) Hypothyroidism: Continue levothyroxine sodium 50 mcg daily (7) Dyslipidemia: Continue simvastatin 40 mg at bedtime and Zetia 10 mg daily (8) Controlled type 2 diabetes mellitus with kidney complication, with long-term current use of insulin: Diabetes mellitus, long-term current use of insulin, kidney and neurologic complications- Decrease Lantus from 48 to 38 units subcu at bedtime for now. Hold regular insulin 3 times daily with meals for now. Placed on Accu-Cheks before meals and at bedtime with NovoLog coverage for scale (9) DVT prophylaxis: (10) Abnormal chest x-ray: Admission and Anticipated Discharge Date Admission Date: July 09, 2020 Subjective Doing well today. Feels completely fine. No major concerns today other than hoping to go home from the hospital soon. Reports no fevers/chills, chest pain, shortness of breath, abdominal pain, nausea, or vomiting. Physical Exam Constitutional: WD/WN, vitals as above Eyes: EOM intact bilaterally; no conjunctival abnormality ENMT: external ear and nose normal, oropharynx normal Neck: trachea midline, no thyromegaly normal visual inspection Respiratory: normal respiratory effort, lungs clear to auscultation no respiratory distress Cardiovascular: RRR, no murmur, no edema Gastrointestinal (Abdomen): Inspection/Auscultation: abdomen normal to in spection; abdomen not distended Musculoskeletal: no cyanosis or clubbing, extremities motor strength 5/5 Skin: no rashes, warm and dry Neurologic: moves all extremities and awake Psychiatric: Orientation: alert, oriented to person and cooperative Results & Data Results & Data ([facility]) Vital Signs (Past 12 Hours) Vital Signs Temp Pulse Resp BP Pulse Ox 07/11/20 11:00 18 166/77 H 97 07/11/20 08:00 36.5 C 73 123/74 96 PG Care Time/CCT Total # of Minutes Spent Total Time Spent with Patient: Total time spent is greater than 50% in coordination of care (as documented) at patient's floor/unit and/or counseling patient: Coding Level of Care Code 50930 Subseq Hosp Care Lvl 2 Diagnoses Acute hyperkalemia E87.5 Acute kidney injury superimposed on chronic kidney disease N17.9; N18.9 Weakness of both lower extremities R29.898 Hypertension I15.1; N28.89 Hypertension type: secondary to other renal disorders Osteoarthritis M19.90 Hypothyroidism E03.9 Hypothyroidism type: unspecified Dyslipidemia E78.5 Controlled type 2 diabetes mellitus with kidney complication, with long-term current use of insulin E11.29; Z79.4 DVT prophylaxis Z29.9 Abnormal chest x-ray R93.89 (1) Hypertension Hypertension type: secondary to other renal disorders Qualified Code(s): I15.1 - Hypertension secondary to other renal disorders; N28.89 - Other specified disorders of kidney and ureter (2) Hypothyroidism Hypothyroidism type: unspecified Qualified Code(s): E03.9 - Hypothyroidism, unspecified
[2020-07-11] MEDS: INSULIN DETEMIR FLEXPEN/FLEX TOUCH 100 UNITS/ML 3ML SQ SCH (21:45)
[2020-07-11] MEDS: cloNIDine HCL 0.1 MG TAB PO SCH (21:45)
[2020-07-11] MEDS: DESMOPRESSIN ACETATE 0.1 MG TAB PO SCH (21:46)
[2020-07-11] MEDS: SIMVASTATIN 40 MG TAB PO SCH (21:46)
[2020-07-11] MEDS: EZETIMIBE 10 MG TABLET PO SCH (21:46)
[2020-07-11] MEDS: METOPROLOL SUCC 25MG EXT REL TAB PO SCH (21:46)
[2020-07-11] MEDS: TAMSULOSIN HCL 0.4 MG CAP PO SCH (21:47)
[2020-07-11] MEDS: traMADol HCL 50 MG TABLET PO PRN (21:53)
[2020-07-12] MEDS: SODIUM BICARBONATE 8.4% 75 MEQ in SODIUM CHLORIDE 0.45 % 1,000 ML IV SCH ×3 (05:16→14:52)
[2020-07-12] MEDS: LEVOTHYROXINE SODIUM 50 MCG TABLET PO SCH (06:31)
[2020-07-12] MEDS: INSULIN ASPART 100 UNITS/ML 3 ML PEN SC SCH ×4 (08:18→21:27)
[2020-07-12] MEDS: HEPARIN SOD 5,000 UNIT/0.5 ML VIAL SQ SCH ×2 (08:21→21:27)
[2020-07-12] MEDS: ASPIRIN 81 MG ECTAB PO SCH (08:24)
[2020-07-12] MEDS: amLODIPine BESYLATE 5 MG TAB PO SCH (08:25)
[2020-07-12] MEDS: FINASTERIDE 5 MG TAB PO SCH (08:25)
[2020-07-12] MEDS: TIMOLOL MALEATE 0.25% OP SOLN 5 ML BTL OP SCH (08:26)
[2020-07-12] MEDS: ALPRAZolam 0.5 MG TABLET PO SCH ×2 (08:28→20:39)
[2020-07-12] MEDS: TRIAMCINOLONE ACET 0.1% CR 15 GM TUBE TOP SCH ×2 (08:28→20:46)
[2020-07-12 08:39] LABS: BUN Creatinine Ratio 17.6 (10-20); Calcium 9.4 mg/dl (8.5-10.1); Creatinine Clr Calc Pharmacy 21.7 ml/min; Est GFR (African American) 20.8; Est GFR (Non-African American) 17.9; Potassium 4.7 mmol/L (3.5-5.1)
[2020-07-12] MEDS: PATIROMER CALCIUM SORBITEX 8.4 GM PACK PO SCH (09:11)
--- NOTE | 2020-07-12 10:21 | Nephrology Progress Note ---
Date of Service July 12, 2020 Assessment & Plan (1) Acute kidney injury superimposed on chronic kidney disease: Mr. Gaviria appears reasonably stable at the current time. He was admitted with apparent prerenal azotemia and a significant rise in his serum potassium. With hydration and withholding his lisinopril and meloxicam his serum creatinine has fallen back toward its baseline. Potassium citrate was also held because of his hyperkalemia. He did have difficulty voiding while here and a Danielson catheter was placed. For now, he appears to be back at his baseline. However, the Danielson catheter is still in. I would recommend that he continue with his slow IV fluids at least for today. Would also check a bilateral renal ultrasound to make sure that there is no evidence of significant obstructive uropathy. Bladder ultrasound would also be helpful to make sure he does not have bladder stones particularly given his history of renal stones in the past. As noted, he also has a history of benign prostatic hypertrophy and has been followed by urology. No other immediate recommendations. (2) BPH (benign prostatic hyperplasia): Admission and Anticipated Discharge Date Admission Date: July 09, 2020 Subjective Mr. Gaviria says that he is feeling relatively well today. He denies any problems with chest pain or shortness of breath. He has had no nausea or vomiting. He says that his appetite is fine. He was admitted with weakness in his lower extremities. In the emergency room, he was found to have an elevation of his serum creatinine above his baseline. His BUN was also dramatically increased consistent with prerenal azotemia superimposed on his usual chronic renal failure. Admission therapy included IV fluids. Lisinopril was held. Meloxicam was held as well as was his potassium citrate. His renal function has slowly improved. His potassium has come back to well within the normal range. He denies any particular antecedent symptoms. He had no nausea or vomiting. He did have symptoms of an upper respiratory tract infection a week or so ago. He was Covid negative. He did not have GI symptoms with those issues. He said that he had been eating relatively well. He does have a Danielson catheter in place. He says that he was not having any urinary difficulties leading up to this hospitalization. He says that he always has difficulty urinating when he is in the hospital. He does have a history of benign prostatic hypertrophy and a history of renal stones. During this hospitalization, he has not had any imaging studies of his urinary tract. Physical Exam Physical Exam: Physical examination, Mr. Gaviria appears relatively well and at about his baseline. His blood pressure is 124/74. His pulse is 68 and regular respiratory rate 19 his oxygen saturation 95% on room air. He is afebrile (36.9). His skin shows slightly diminished skin turgor. There is no rash or infiltrative skin disease. He has scars from prior procedures. He has no palpable lymphadenopathy. His head is grossly normal. Eyes are grossly normal. The ocular fundi were not examined. Ears, nose, mouth and throat are unremarkable. His oral mucous membranes are minimally dry. His neck is supple. He has no jugular venous distention, carotid bruit or thyromegaly. His chest is clear to auscultation. Cardiac exam shows a regular rhythm. I hear no murmur or gallop. His abdomen is obese and protuberant. It is nontender. There is no definite organomegaly or mass. Bowel sounds are normal. There are no abdominal bruits. He has no CVA tenderness. He has trace lower extremity edema. He has no lateralizing neurologic changes. Results & Data ([facility]) Vital Signs (Past 12 Hours) Vital Signs Temp Pulse Resp BP BP Pulse Ox 07/12/20 08:12 36.9 C 68 19 124/74 95 07/12/20 03:55 36.4 C L 58 L 16 119/72 95 07/12/20 00:01 36.4 C L 62 16 110/71 95 PG Care Time/CCT Total # of Minutes Spent Total Time Spent with Patient: Total time spent is greater than 50% in coordination of care (as documented) at patient's floor/unit and/or counseling patient: Coding Level of Care Code 66127 Subseq Hosp Care Lvl 3 Diagnoses Acute kidney injury superimposed on chronic kidney disease N17.9; N18.9 BPH (benign prostatic hyperplasia) N40.0
[2020-07-12] MEDS: traMADol HCL 50 MG TABLET PO SCH (13:14)
[2020-07-12 13:59] LABS: iSTAT Creatinine 4.1 mg/dl (0.6-1.3); iSTAT Ionized Calcium 1.26 mmol/l (1.12-1.32); iSTAT Potassium 7.6 mmol/L (3.3-5.0)
--- NOTE | 2020-07-12 14:21 | Ultrasound Report ---
US renal/blad retro comp HISTORY: 80 years-old Male urinary rentention follow-up study in a patient with history of urinary r etention COMPARISON: Renal ultrasound 09/04/2018, CT lumbar spine 07/09/2020 TECHNIQUE: Multiple real-time son ographic images of the kidneys were obtained assessing grayscale appearance and color flow FINDINGS: Limited exam secondary to patient body habitus. The right kidney measures 10.7 cm in length and demonstrates no renal calculi or hydronephrosis. Ther e is diffuse cortical thinning of the right kidney with increased parenchymal echogenicity. There are a few tiny right-sided renal cysts noted. Within the interpolar right kidney there is a isoechoic ar ea with ill-defined margins which measures approximately 2.3 x 1.9 x 1.9 cm with equivocal central fl ow. The left kidney measures 8.5 cm in length and also demonstrates diffuse cortical thinning with increa sed parenchymal echogenicity. No left-sided renal calculi or hydronephrosis. Urinary bladder is decompressed with Danielson catheter. IMPRESSION: 1. No renal calculi or hydronephrosis. 2. 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 3. Heterogeneous focus of the interpolar right kidney measuring 2.3 cm may reflect an area of heterog eneous parenchyma versus underlying renal lesion. This finding could be further evaluated with a none mergent follow-up CT renal protocol. ACT 112: Negative or not required by law. The above report was generated using voice recognition software. It may contain grammatical, syntax o r spelling errors. Electronically signed by: Sammy Linton M.D. 07/12/2020 2:20 PM
--- NOTE | 2020-07-12 18:09 | Hospitalist Progress Note ---
Date of Service July 12, 2020 Assessment & Plan (1) Right kidney mass: possible right kidney mass Shown on ultrasound. This was ordered to rule out obstruction. lesion is 2.3 cm x 1.9cm x 1.9cm will order MRI of right kidney. d/w urology (2) Acute hyperkalemia: Admission laboratories: Potassium 7.3, creatinine of 4.09, with range 2.82-3.57. - We will hold lisinopril 40 mg daily, meloxicam 15 mg daily and potassium citrate 10 mEq twice daily. - Continue Veltassa 8.4 mg p.o. daily. Improved Note: Discharge with Danielson in place. Follow up with urology in 1-2 weeks. (3) Acute kidney injury superimposed on chronic kidney disease: This is resolved. His baseline creatinine is 3.0-3.5. Secondary to diabetic nephropathy. - Consult nephrology. (4) Weakness of both lower extremities: CT lumbar spine did not show any significant spinal stenosis to suggest connection between urinary retention and his subjective lower extremity weakness and tremor. - PT/OT (5) Hypertension: See above (6) Osteoarthritis: (7) Hypothyroidism: Continue levothyroxine sodium 50 mcg daily (8) Dyslipidemia: Continue simvastatin 40 mg at bedtime and Zetia 10 mg daily (9) Controlled type 2 diabetes mellitus with kidney complication, with long-term current use of insulin: Diabetes mellitus, long-term current use of insulin, kidney and neurologic complications- Decrease Lantus from 48 to 38 units subcu at bedtime for now. Hold regular insulin 3 times daily with meals for now. Placed on Accu-Cheks before meals and at bedtime with NovoLog coverage for scale (10) DVT prophylaxis: (11) Abnormal chest x-ray: Admission and Anticipated Discharge Date Admission Date: July 09, 2020 Subjective Patient reports feeling well. He has no new complaints. Review of Systems Review of Systems: All systems reviewed & are unremarkable except as noted in HPI & below Physical Exam Physical Exam: Constitutional: WD/WN, vitals as above Eyes: EOM intact bilaterally; no conjunctival abnormality ENMT: external ear and nose normal, oropharynx normal Neck: trachea midline, no thyromegaly normal visual inspection Respiratory: normal respiratory effort, lungs clear to auscultation no respiratory distress Cardiovascular: RRR, no murmur, no edema Gastrointestinal (Abdomen): Inspection/Auscultation: abdomen normal to inspection; abdomen not distended Musculoskeletal: no cyanosis or clubbing, extremities motor strength 5/5 Skin: no rashes, warm and dry Neurologic: moves all extremities and awake Psychiatric: Orientation: alert, oriented to person and cooperative Results & Data Results & Data ([facility]) Vital Signs (Past 12 Hours) Vital Signs Temp Pulse Pulse Resp BP Pulse Ox 07/12/20 16:02 65 07/12/20 15:54 36.3 C L 60 21 135/75 96 07/12/20 11:52 36.5 C 66 19 137/72 97 07/12/20 08:12 36.9 C 68 19 124/74 95 07/12/20 08:00 61 PG Care Time/CCT Total # of Minutes Spent Total Time Spent with Patient: Total time spent is greater than 50% in coordination of care (as documented) at patient's floor/unit and/or counseling patient: Coding Level of Care Code 15844 Subseq Hosp Care Lvl 3 Diagnoses Right kidney mass N28.89 Acute hyperkalemia E87.5 Acute kidney injury superimposed on chronic kidney disease N17.9; N18.9 Weakness of both lower extremities R29.898 Hypertension I15.1; N28.89 Hypertension type: secondary to other renal disorders Osteoarthritis M19.90 Hypothyroidism E03.9 Hypothyroidism type: unspecified Dyslipidemia E78.5 Controlled type 2 diabetes mellitus with kidney complication, with long-term current use of insulin E11.29; Z79.4 DVT prophylaxis Z29.9 Abnormal chest x-ray R93.89 Time Spent (min) 35 (1) Hypothyroidism Hypothyroidism type: unspecified Qualified Code(s): E03.9 - Hypothyroidism, unspecified (2) Hypertension Hypertension type: secondary to other renal disorders Qualified Code(s): I15.1 - Hypertension secondary to other renal disorders; N28.89 - Other specified disorders of kidney and ureter
[2020-07-12] MEDS: DESMOPRESSIN ACETATE 0.1 MG TAB PO SCH (20:40)
[2020-07-12] MEDS: EZETIMIBE 10 MG TABLET PO SCH (20:41)
[2020-07-12] MEDS: SIMVASTATIN 40 MG TAB PO SCH (20:42)
[2020-07-12] MEDS: METOPROLOL SUCC 25MG EXT REL TAB PO SCH (20:42)
[2020-07-12] MEDS: TAMSULOSIN HCL 0.4 MG CAP PO SCH (20:46)
[2020-07-12] MEDS: traMADol HCL 50 MG TABLET PO PRN (20:56)
[2020-07-12] MEDS: cloNIDine HCL 0.1 MG TAB PO SCH (21:23)
[2020-07-12] MEDS: INSULIN DETEMIR FLEXPEN/FLEX TOUCH 100 UNITS/ML 3ML SQ SCH (21:33)
[2020-07-13] MEDS: SODIUM BICARBONATE 8.4% 75 MEQ in SODIUM CHLORIDE 0.45 % 1,000 ML IV SCH (05:55)
[2020-07-13] MEDS: LEVOTHYROXINE SODIUM 50 MCG TABLET PO SCH (05:56)
[2020-07-13 06:26] LABS: Hematocrit (blood only) 35.7 % (42-52); Hemoglobin 11.3 g/dL (14.0-18.0); Mean Corpuscular Hemoglobin 28.9 pg (25-34); Mean Corpuscular Hgb Conc 31.7 g/dL (32-36); Mean Corpuscular Volume 91.3 fL (80-100); Platelet Count 198 K/uL (130-400); RDW Coefficient of Variation 14.8 % (11.5-14.5); RDW Standard Deviation 49.1 fL (36.4-46.3); Red Blood Count 3.91 M/uL (4.7-6.1); White Blood Count 4.79 K/uL (4.8-10.8)
[2020-07-13] MEDS: ASPIRIN 81 MG ECTAB PO SCH (08:42)
[2020-07-13] MEDS: HEPARIN SOD 5,000 UNIT/0.5 ML VIAL SQ SCH (08:42)
[2020-07-13] MEDS: TRIAMCINOLONE ACET 0.1% CR 15 GM TUBE TOP SCH (08:44)
[2020-07-13] MEDS: FINASTERIDE 5 MG TAB PO SCH (08:44)
[2020-07-13] MEDS: amLODIPine BESYLATE 5 MG TAB PO SCH (08:46)
[2020-07-13] MEDS: TIMOLOL MALEATE 0.25% OP SOLN 5 ML BTL OP SCH (08:46)
[2020-07-13] MEDS: PATIROMER CALCIUM SORBITEX 8.4 GM PACK PO SCH (08:47)
[2020-07-13] MEDS: INSULIN ASPART 100 UNITS/ML 3 ML PEN SC SCH ×3 (08:53→17:53)
[2020-07-13] MEDS: ALPRAZolam 0.5 MG TABLET PO SCH (08:59)
[2020-07-13 10:04] LABS: BUN Creatinine Ratio 18.6 (10-20); Calcium 8.8 mg/dl (8.5-10.1); Creatinine Clr Calc Pharmacy 22.7 ml/min; Est GFR (African American) 21.9; Est GFR (Non-African American) 18.9; Potassium 4.1 mmol/L (3.5-5.1)
--- NOTE | 2020-07-13 10:17 | Nephrology Progress Note ---
Date of Service July 13, 2020 Assessment & Plan (1) Acute kidney injury superimposed on chronic kidney disease: Mr. Gaviria appears to be doing quite well. His renal function has improved. His BUN remains somewhat elevated disproportionately to his creatinine. His blood pressure is relatively low and his skin turgor is still minimally diminished. A Danielson catheter is still in place. I would certainly recommend removing it and giving him a voiding trial. Additionally, he will have an MRI today to check on the possible abnormality involving his right kidney. Regardless of what is found. The remainder of his evaluation can be done as an outpatient. He is anxious for discharge. However, I would not discharge him until it is clear that he is able to void. On discharge I would continue to hold his lisinopril and his potassium citrate and meloxicam. We can reintroduce those drugs as necessary as an outpatient. It would seem apparent, based on the trending of his laboratory work that the decline in his renal function noted on admission was related, to some extent, to volume depletion. Admission and Anticipated Discharge Date Admission Date: July 09, 2020 Subjective Mr. Gaviria says that he is feeling well. He has no symptoms of uremia or volume overload. His Danielson catheter remains in place. It is draining clear urine.. Yesterday, he did have a bilateral renal ultrasound. We were looking for the possibility that he had some measure of obstruction to his urinary tract. None was noted. However, there was an incidental finding of a 2.3 x 1.9 x 1.9 cm intrapolar abnormality in the right kidney. An apparent MRI is ordered today for follow-up. He has had no problems with flank pain or gross hematuria. The abnormality is of uncertain significance. The weakness that he had at the time of admission has resolved. Physical Exam Physical Exam: On physical examination, Mr. Gaviria appears to be at his baseline. His blood pressure is 111/68 with a pulse of 62 and regular. His respiratory rate is 18 and his oxygen saturation 97% on room air. He is afebrile (36.8). His skin shows slightly diminished skin turgor. He has no rash or infiltrative skin disease. He has no palpable lymphadenopathy. His head is normal. Eyes are grossly normal. The ocular fundi were not examined. Ears, nose, mouth and throat are all unremarkable. Oral mucous membranes are moist. His neck is supple. There is no jugular venous distention, carotid b ruit or thyromegaly. His chest is clear to auscultation. Diaphragms are elevated and breath sounds slightly diminished at the bases consistent with his body habitus. Cardiac exam shows a regular rhythm. S1 and S2 were normal. He has a soft systolic murmur at the base radiating toward the neck. His abdomen is protuberant. It is nontender. There is no definite organomegaly or mass but the exam is limited by his body habitus. He has no CVA tenderness or tenderness over the dorsal spine. His genital exam shows that a Danielson catheter is in place. Extremities show no cyanosis or clubbing. He has trace lower extremity edema. His neurologic exam shows no lateralizing changes. Results & Data ([facility]) Vital Signs (Past 12 Hours) Vital Signs Temp Pulse Resp BP Pulse Ox 07/13/20 08:00 36.8 C 62 18 111/68 97 07/12/20 23:42 36.3 C L 52 L 16 107/64 96 Laboratory Results Laboratory Results - last 24 hr 07/09/20 07/12/20 07/12/20 19:34 11:32 16:03 WBC RBC Hgb POC Hgb 15.0 Hct POC Hct 44 MCV MCH MCHC RDW Std Deviation RDW Coeff of Aysha Plt Count MPV POC Sodium 136 Sodium POC Potassium 7.6 H* Potassium POC Chloride 112 Chloride Carbon Dioxide POC Total CO2 18 L Anion Gap POC Anion Gap 15.0 L POC BUN 72 H BUN Creatinine POC Creatinine 4.1 H Est Cr Clr Drug Dosing Est GFR ( Amer) Est GFR (Non-Af Amer) BUN/Creatinine Ratio Glucose POC Glucose 259 H 170 H POC Glucose (other) 116 H Calcium POC Ioniz Calcium Ivelisse 1.26 07/12/20 07/13/20 07/13/20 21:17 05:04 05:08 WBC 4.79 L RBC 3.91 L Hgb 11.3 L POC Hgb Hct 35.7 L POC Hct MCV 91.3 MCH 28.9 MCHC 31.7 L RDW Std Deviation 49.1 H RDW Coeff of Aysha 14.8 H Plt Count 198 MPV 11.0 H POC Sodium Sodium 136 POC Potassium Potassium 4.1 POC Chloride Chloride 105 Carbon Dioxide 25 POC Total CO2 Anion Gap 6.0 POC Anion Gap POC BUN BUN 56 H Creatinine 3.00 H POC Creatinine Est Cr Clr Drug Dosing 22.7 Est GFR ( Amer) 21.9 Est GFR (Non-Af Amer) 18.9 BUN/Creatinine Ratio 18.6 Glucose 96 POC Glucose 150 H POC Glucose (other) Calcium 8.8 POC Ioniz Calcium Ivelisse 07/13/20 08:10 WBC RBC Hgb POC Hgb Hct POC Hct MCV MCH MCHC RDW Std Deviation RDW Coeff of Aysha Plt Count MPV POC Sodium Sodium POC Potassium Potassium POC Chloride Chloride Carbon Dioxide POC Total CO2 Anion Gap POC Anion Gap POC BUN BUN Creatinine POC Creatinine Est Cr Clr Drug Dosing Est GFR ( Amer) Est GFR (Non-Af Amer) BUN/Creatinine Ratio Glucose POC Glucose 115 H POC Glucose (other) Calcium POC Ioniz Calcium Ivelisse PG Care Time/CCT Total # of Minutes Spent Total Time Spent with Patient: Total time spent is greater than 50% in coordination of care (as documented) at patient's floor/unit and/or counseling patient: 30 Coding Level of Care Code 87904 Subseq Hosp Care Lvl 3 Diagnoses Acute kidney injury superimposed on chronic kidney disease N17.9; N18.9
--- NOTE | 2020-07-13 13:53 | Magnetic Resonance Report ---
MR abdomen wo con CLINICAL HISTORY: Right renal lesion TECHNIQUE: Imaging was performed without IV contrast enhancement. COMPARISON STUDY: Renal ultrasound dated 07/12/2020 FINDINGS: Images were obtained in the axial and coronal planes. No gallbladder abnormalities are visualized. There is no intra or extrahepatic biliary ductal dilatation. There is no pancreatic ductal dilatation . No hepatic splenic or pancreatic masses are visualized on this noncontrast examination. There is no evidence of abdominal aortic aneurysm. No adrenal masses are visualized. There is no pathologic retroperitoneal lymphadenopathy. 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 There are multiple T2 bright renal lesions likely representing cysts. In addition, there are several proteinaceous right renal cysts. There are also some capsular fat-containing lesions of the left kidn ey which remain unchanged from the 2011 CT scan. Renal evaluation is limited without intravenous contrast but there are no findings that would corresp ond to a 2.3 cm solid interpolar right renal lesion as was queried on the prior ultrasound. IMPRESSION: 1. No suspicious solid masses given the limitations of a noncontrast examination 2. Simple and proteinaceous renal cysts 3. Stable fat-containing capsular left renal lesions. These are felt to be benign ACT 112: Negative or not required by law. Electronically signed by: Maxwell Bueno M.D. 07/13/2020 1:52 PM
[2020-07-13] MEDS: traMADol HCL 50 MG TABLET PO SCH (14:25)
--- NOTE | 2020-07-13 16:09 | Urology Progress Note ---
Date of Service July 13, 2020 Assessment & Plan (1) Benign prostatic hyperplasia with urinary obstruction: (2) Acute kidney injury superimposed on chronic kidney disease: (3) Right kidney mass: 80 year-old male patient with multiple comorbidities admitted secondary to acute hyperkalemia, JV, and BPH with obstruction. - Plan of care reviewed with Dr. Wise. - Patient afebrile, creatinine improved from yesterday. - Imaging reviewed with patient, no suspicious solid masses given the limitations of a noncontrast examination. - Banda catheter ordered to be removed by primary team, patient has not voided since catheter removal. - If patient unable to void, recommend CIC teaching versus replacement of indwelling banda catheter. - Continue Tamsulosin and Finasteride as directed. - Will arrange outpatient follow-up with urology service in the next 1-2 weeks, possible cystoscopy at that time. - Patient in agreement with plan, all questions answered. Admission and Anticipated Discharge Date Admission Date: July 09, 2020 Subjective Patient examined, he is sitting up in chair, alert and comfortable. Reports his indwelling banda catheter was removed 30 minutes go, ordered by primary team. He has not urinated since catheter removal. Denies bladder pain or pressure. Denies abdominal or flank pain. Denies fevers or chills. No nausea or vomiting. Has been tolerating BID Tamsulosin therapy without dizziness/lightheadedness. Anxious to go home this evening. Chart review: Afebrile Wbc 4.79 Hgb 11.3 Creatinine 3.00 (previously 3.13) MRI abdomen w/o contrast: IMPRESSION: 1. No suspicious solid masses given the limitations of a noncontrast examination. 2. Simple and proteinaceous renal cysts. 3. Stable fat-containing capsular left renal lesions. These are felt to be benign and unchanged from 2011 CT scan. Denies additional urologic concerns today. Review of Systems Constitutional: as per Subjective / HPI; no fever and no chills Gastrointestinal: as per Subjective / HPI; no nausea and no vomiting Genitourinary: + as per Subjective / HPI Physical Exam Constitutional: well developed and well nourished; no acute distress and not ill appearing Respiratory: normal respiratory effort and able to speak in complete sentences; no respiratory distress and no audible wheezes Gastrointestinal (Abdomen): Inspection/Auscultation: abdomen normal to inspection; abdomen not distended Skin: No visible rashes, lesions, or wounds present. Psychiatric: Orientation: alert, oriented x 3 and cooperative Affect: euthymic affect Results & Data ([facility]) Vital Signs (Past 12 Hours) Vital Signs Temp Pulse Resp BP Pulse Ox 07/13/20 15:45 36.4 C L 66 16 135/74 98 07/13/20 08:00 36.8 C 62 18 111/68 97 PG Care Time/CCT Total # of Minutes Spent Total Time Spent with Patient: Total time spent is greater than 50% in coordination of care (as documented) at patient's floor/unit and/or counseling patient: Coding Level of Care Code 64679 Subseq Hosp Care Lvl 2 Diagnoses Benign prostatic hyperplasia with urinary obstruction N40.1; N13.8 Acute kidney injury superimposed on chronic kidney disease N17.9; N18.9 Right kidney mass N28.89
--- NOTE | 2020-07-21 00:19 | Discharge Summary ---
Date of Service July 13, 2020 Admission HPI Per Admitting Provider The patient is a 80-year-old male with a past medical history including CKD, anemia, BPH with OBS/LUTS, diabetes mellitus with long-term insulin, CAD, diverticulosis of colon, dyslipidemia, generalized osteoarthritis, hypertension, hypothyroidism, internal hemorrhoids and obesity with BMI 35-39.9. Patient presents as above. He also notes some brief upper respiratory symptoms that resolved about 1 week ago. His COVID-19 test was negative at that time. He also notes an intermittent tremor of bilateral lower extremities. In the emergency department, work-up included following abnormal laboratories: Potassium 7.3, creatinine 4.09, hemoglobin 13.3. Imaging studies included a normal CT scan of head and lumbar spine. Chest x-ray revealed a left lower lobe pneumonia. In the emergency department, patient was given Veltassa, calcium gluconate, sodium bicarbonate, normal saline 1 L, 1 amp of D50 followed by 10 units of regular insulin IV. Principal Diagnosis acute kidney injury Discharge Exam Constitutional: WD/WN, vitals as above Eyes: EOM intact bilaterally; no conjunctival abnormality ENMT: external ear and nose normal, oropharynx normal Neck: trachea midline, no thyromegaly normal visual inspection Respiratory: normal respiratory effort, lungs clear to auscultation no respiratory distress Cardiovascular: RRR, no murmur, no edema Gastrointestinal (Abdomen): Inspection/Auscultation: abdomen normal to inspection; abdomen not distended Musculoskeletal: no cyanosis or clubbing, extremities motor strength 5/5 Skin: no rashes, warm and dry Neurologic: moves all extremities and awake Psychiatric: Orientation: alert, oriented to person and cooperative Discharge Data Allergies Allergy/AdvReac Type Severity Reaction Status Date / Time adhesive Allergy Unknown DERMATITIS Verified 07/20/20 11:54 latex Allergy Unknown SKIN Verified 07/20/20 11:54 IRRITATION Consultations 07/09/20 20:11 ED Decision to Admit Stat 07/09/20 23:34 Consult Case Management - Discharge Planning Routine Consult Nephrology Routine Consult Urology Routine Ordered Studies 07/09/20 17:50 CT head/brain wo con Stat CT lumbar spine wo con Stat 07/12/20 13:30 US renal/blad retro comp Urgent 07/13/20 03:37 MR abdomen wo con Routine Hospital Course (1) Right kidney mass: possible right kidney mass Shown on ultrasound. This was ordered to rule out obstruction. lesion is 2.3 cm x 1.9cm x 1.9cm will order MRI of right kidney: negative. d/w urology (2) Acute hyperkalemia: Admission laboratories: Potassium 7.3, creatinine of 4.09, with range 2.82-3.57. - We will hold lisinopril 40 mg daily, meloxicam 15 mg daily and potassium citrate 10 mEq twice daily. - Continue Veltassa 8.4 mg p.o. daily. Improved Note: removed banda, patient urinated after. Follow up with urology in 1-2 weeks. (3) Acute kidney injury superimposed on chronic kidney disease: This is resolved. His baseline creatinine is 3.0-3.5. Secondary to diabetic nephropathy. - Consult nephrology. (4) Weakness of both lower extremities: CT lumbar spine did not show any significant spinal stenosis to suggest connection between urinary retention and his subjective lower extremity weakness and tremor. - PT/OT (5) Hypertension: See above (6) Osteoarthritis: (7) Hypothyroidism: Continue levothyroxine sodium 50 mcg daily (8) Dyslipidemia: Continue simvastatin 40 mg at bedtime and Zetia 10 mg daily (9) Controlled type 2 diabetes mellitus with kidney complication, with long-term current use of insulin: Diabetes mellitus, long-term current use of insulin, kidney and neurologic complications- Decrease Lantus from 48 to 38 units subcu at bedtime for now. Hold regular insulin 3 times daily with meals for now. Placed on Accu-Cheks before meals and at bedtime with NovoLog coverage for scale (10) DVT prophylaxis: (11) Abnormal chest x-ray: Total Time Total Time Spent Total Time Spent (In Minutes): 32 Total Time Includes: Examination of the Patient, Discharge Planning and Medication Reconciliation Discharge Plan Discharge Items Patient Disposition: Home - Self-Care Reason For Visit: HYPERKALEMIA, JV ON CKD Discharge Diagnosis: acute on chronic kidney disease Activity: Resume your previous activity Non-emergency contact: Primary Care Provider Call non-emergency contact if: you have any medication questions Follow-up/Referrals: Orly Dickson MD [Primary Care Provider] - 07/30/20 10:30 am Quirino Santiago MD [Surgeon] - ([facility] WILL CALL THE PATIENT WITH A FOLLOW UP APPT.) Diet: Carb Consistent or DM2, Dialysis Renal and Low Potassium (2gm) Addtl Attending Provider Instructions: You have been hospitalized for an acute medical problem. During your stay at [facility], we have made an effort to correct the problem that brought you to the hospital while keeping you as comfortable as possible. Medications were used to bring your condition under control and your discharge instructions will include directions for any medications you should take after leaving the hospital. Please make sure you see your Primary Care Provider as part of your follow up plan. Check blood work in 1 week. followup with Urology in 1-2 weeks. Pending Studies at Discharge: No Stand-Alone Forms: My [facility], Opioid Pain Management, Smoking Cessation Medications and DC Order Prescriptions: Continued ezetimibe 10 mg tablet 10 mg PO DAILY Qty: 90 RF: 3 blood sugar diagnostic [SeatSwaprTouch Ultra Blue Test Strip] strip See Rx Instructions .ROUTE .COMPLEX Qty: 500 RF: 2 simvastatin 40 mg tablet 40 mg PO HS Qty: 90 RF: 3 nystatin 100,000 unit/gram cream 1 appln TOP BID Qty: 30 RF: 5 triamcinolone acetonide 0.1 % cream 1 appln TOP BID Qty: 80 RF: 5 Levemir FlexTouch U-100 Insuln 100 unit/mL (3 mL) insulin pen 48 units SQ HS Qty: 45 RF: 1 finasteride 5 mg tablet 5 mg PO DAILY Qty: 90 RF: 1 amlodipine 5 mg tablet 5 mg PO DAILY Qty: 90 RF: 1 timolol 0.25 % drops 1 drops OP DAILY RF: 0 aspirin 81 mg tablet 81 mg PO DAILY RF: 0 sildenafil 100 mg tablet 100 mg PO DAILY PRN (Reason: ..) Qty: 40 RF: 0 clonidine HCl 0.1 mg tablet 0.1 mg PO QPM RF: 0 desmopressin 0.2 mg tablet 0.2 mg PO HS RF: 0 alprazolam 0.5 mg tablet 0.5 mg PO BID RF: 0 Novolin R Regular U-100 Insuln 100 unit/mL solution 0 units SQ TIDM RF: 0 Discontinued meloxicam 15 mg tablet 15 mg PO DAILY Qty: 90 RF: 3 lisinopril 40 mg tablet 40 mg PO DAILY Qty: 90 RF: 3 No Action Eliquis 5 mg tablet 5 mg PO BID Qty: 60 RF: 1 tamsulosin 0.4 mg capsule 0.8 mg PO PM RF: 0 metoprolol succinate 50 mg tablet extended release 24 hr 75 mg PO HS RF: 0 tramadol 50 mg tablet 50 mg PO UD RF: 0 levothyroxine 50 mcg tablet 50 mcg PO DAILY RF: 0 (DME) pen needle, diabetic [BD Ultra-Fine Mini Pen Needle] 31 gauge x 3/16" Needle MISCELLANEOUS RF: 0 (DME) FreeStyle [place]ie 14 Day Sensor Kit MISCELLANEOUS RF: 0 (DME) FreeStyle [place]itchie 14 Day [place] Misc MISCELLANEOUS RF: 0 (DME) BD SafetyGlide Insulin Syringe 0.3 mL 31 gauge x 15/64" Syringe MISCELLANEOUS RF: 0 Discharge Orders: Discharge Order (Routine); Ordered 07/13/20 Ordered By: Markus Barton/Other Patient Handouts: Managing Type 2 Diabetes Admission Data Admit Date/Time: 07/09/20 21:21 Attending Provider: Markus Cervantes Admit Provider: Fortino Blackwood Primary Care Provider: Orly Dickson V. Other Providers: Bob Almonte ; Fortino Blackwood ; Dany Cid ; Ian Sullivan Other Interventions: Discharge Summary Assessment (RN) Last Done: 07/13/20 17:02 Coding Level of Care Code D/C Day Management >30 mins Diagnoses Right kidney mass N28.89 Acute hyperkalemia E87.5 Acute kidney injury superimposed on chronic kidney disease N17.9; N18.9 Weakness of both lower extremities R29.898 Hypertension I15.1; N28.89 Hypertension type: secondary to other renal disorders Osteoarthritis M19.90 Hypothyroidism E03.9 Hypothyroidism type: unspecified Dyslipidemia E78.5 Controlled type 2 diabetes mellitus with kidney complication, with long-term current use of insulin E11.29; Z79.4 DVT prophylaxis Z29.9 Abnormal chest x-ray R93.89
== END 2020-07-13 18:23 | disposition home or self-care (01) | DRG 684 ==
LOC: ED 17:31 → EDINP 21:21 → SUATTDRO 21:21 → EDINP 22:52 → 2S 07-10 01:57 → 3E 07-12 18:44

== ENCOUNTER 2023-09-18 14:17 | Inpatient (IN) ==
--- NOTE | 2023-09-18 14:37 | Emergency Department Note ---
Impression & Plan Acute pulmonary edema, Acute hypoxemic respiratory failure, Acute lactic acidosis, Closed head injury, Elevated troponin ED Provider Note Name: LARISSA LORENZO Age: 83 Sex: Male Arrives Via: Ambulance Informant: Patient, EMS ED Provider: Jacobo Kirkland MD Chief Complaint: Difficulty breathing Impression: As per impressions above Medical Decision Makin-year-old gentleman with extensive past medical history including CKD, diabetes, hypertension, dyslipidemia, obesity arrives for evaluation of worsening shortness of breath. Patient was so weak and short of breath he fell to the ground this morning. Has been laying on the ground for the last 4-5 hours. Patient did strike his head. CT of the head and neck is fortunately unremarkable. Patient chest x-ray shows fulminant pulmonary edema. His white count is unremarkable he is afebrile. I do not find any clear evidence that this is infectious at this time. We will hold off on giving any fluids for the elevated lactic acid as he is severely fluid overloaded. There may be an underlying infection thus he was given some Zosyn empirically but I do not feel this is truly sepsis is the primary issue. He was given 40 mg IV Lasix for initial treatment. Creatinine is fortunately stable around 5. Troponin is elevated though he is not having any active chest pain would hold off on anticoagulant at this time. No clear etiology of acute congestive heart failure though is quite fragile to begin with given his kidney function. Discussed the case earlier with hospitalist who agreed with Lasix and antibiotics and avoiding further fluids at this time. At time of hospitalization patient is breathing much more comfortably on BiPAP though does not tolerate taking it off. His oxygenation is good his blood pressure is good and he is not in any significant distress. Given the acute renal failure and no clear abdominal pain or chest pain I do not think that CT of the chest and pelvis would be indicated, but he would likely not even tolerate this as he barely tolerated the CT head cervical spine when off BiPAP for just those few minutes. Based on initial evaluation and workup suspect that elevated troponin, elevated lactic acid and his acidosis are secondary to acute hypoxic event. Will need to be further trended post proper respiratory support and oxygenation of which lactate is improved post oxygenation and repeat.. Triage/Nursing Notes reviewed by Me There was significant difficulties getting laboratory workup given patient's poor access. That said patient did get sepsis workup including all labs and cultures/lactate associated with it. Differential:Reactive airway disease, pneumonia, pneumothorax, COPD, CHF, infections, cardiac ischemia, pulmonary embolism, musculoskeletal, gastrointestinal, as well as other pathologies. Vital Signs: reviewed and remarkable for hypoxia Interventions: BiPAP, Lasix 40 mg IV, Zosyn 4.5 g IV Labs:ED labs Reviewed by me and remarkable for elevated lactic acid Imagin view chest x-ray bilateral pulmonary edema new from previous chest x- ray as per my interpretation. CT of the head without contrast as per my interpretation informally reveals no evidence of intracranial hemorrhage or mass effect. Confirmed by radiologist. CT of the cervical spine as per my informal interpretation reveals no fracture or dislocation. Moderate osteoarthritis. Confirmed by radiologist. EKG:Per My Interpretation: Indication weakness: NSR 90 bpm, qtc 496 with intraventricular delay. No Ectopy. No Ischemia. Compared to EKG December 04, 2022, no significant changes. Cardiac/Tele Monitoring: Cardiac Monitoring: An Order was placed for continuous cardiac monitoring. The monitor shows a rate of 90 with a normal sinus rhythm. Consults:Dr. Blackwood [facility]. Plan: Disposition:Hospitalization. Condition: Fair History of Present Illness: 83-year-old male arrives for evaluation of weakness. Patient notes he was walking through his house feeling very tired when he collapsed to the ground. States he was too weak to get up. Patient states he is very short of breath and cannot catch his breath. He thinks has been going on a few days. Denies any fevers. Admits he might of hit his head but denies any headache or neck pain. Denies any chest pain, back pain, abdominal pain, hip pain, extremity injury or other concerning signs or symptoms. No known sick contacts. After patient fell he was unable to get up for 4 to 5 hours eventually being able to call 911. Patient states blood sugar was 160s this morning and EMS reports 300 earlier. Past Medical History:See Below Home Medications:See Below Allergies:latex Vitals:Blood Pressure: 148/79, Pulse 95, RR 40, T 36.8C, O2 70% on RA Physical Exam: GENERAL: Patient is unwell appearing and in moderate distress. HEAD: Hematoma left forehead. NECK: No midline TTP, no step-offs RESPIRATORY: Significant tachypnea and dyspnea with belly breathing. Diffuse crackles all lung fontana CARDIOVASCULAR: Regular rate and rhythm.No murmur appreciated. GASTROINTESTINAL: Abdomen soft, non-tender, no peritonitis. Large protuberant abdomen with hernia which is nontender. No abdominal tenderness palpation PELVIS: Stable, non-tender BACK: No midline tenderness, no CVA tenderness EXTREMITIES: Cool mottled extremities. Normal motion all extremities, no edema. Bruising left anterior shoulder no pain with range of motion. No pain with range of motion bilateral legs NEUROLOGIC: Alert and oriented. No focal neurologic deficits appreciated SKIN: No rash, no jaundice, no diaphoresis. PSYCH: Appropriate GCS: 15 ED Course: Times/Reassessments: Patient is significantly better after being placed on BiPAP. Critical Care: I have personally spent 35 minutes of critical care time in the direct management of this patient. Acute Respiratory Failure secondary to pulmonary edema. This was a life/limb threatening event. This 35 minutes is in excess of all separately billable procedures. 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 Chronic renal insufficiency Controlled type 2 diabetes mellitus with kidney complication, with long-term current use of insulin Coronary arteriosclerosis Cyst of kidney, acquired Dyslipidemia Hypertension Hypothyroidism Obesity, Class II, BMI 35-39.9 Surgical History History of total right knee replacement H/O eye surgery History of cataract surgery History of total left knee replacement (TKR) History of lithotripsy History of tonsillectomy History of angioplasty History of surgery History of exploratory laparotomy History of umbilical hernia repair History of colonoscopy History of ear surgery Family History Father Cancer of kidney Hypertension Cardiac disorder Family/Other Cancer of kidney Bone cancer Mother Bone cancer Cardiac disorder Hypertension Other No family history of adverse response to anesthesia No family history of bleeding disorder Social History Smoking Status: Never smoker Second Hand Exposure: No; Do You Dip or Chew Tobacco: No; Hx Alcohol Use: No Hx Substance Use: No Preferred Language: Syriac Communication Ability: Effective Visual Impairment: Limited Hearing Ability: Normal Investment Associate Required: No Beliefs That Will Affect Care: None marital status: / Current Living Situation: Alone current occupational status: employed 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 How many Children do You have: 1 How many Children do You have Comment: Stepdaughter, 2 grandchildren Feels Safe at Home: Yes Diet: regular caffeine: Yes during the past year weight has: remained stable Dental Care, Regularly: Yes Physical Activity Frequency: 5-6 Times per Week Seatbelt Use: always Sunscreen Use: No Assistive Devices: Glasses and Walker Allergies Allergies Allergy/AdvReac Type Severity Reaction Status Date / Time latex Allergy Mild SKIN Verified 09/14/23 13:11 IRRITATION Home Meds Home Medications Medication Instructions Recorded Confirmed flash glucose scanning reader 07/19/20 09/10/23 (FreeStyle [place] 14 Day [place]) flash glucose sensor (Path101Style 07/19/20 09/10/23 Ritchie 14 Day Sensor kit) furosemide 40 mg tablet 40 mg PO QAM 11/29/22 09/14/23 pantoprazole 40 mg tablet,delayed 40 mg PO QAM 11/29/22 09/14/23 release ezetimibe 10 mg tablet (Zetia) 10 mg PO QPM 04/13/23 09/14/23 insulin glargine 100 unit/mL (3 27 unit subcut QPM 04/13/23 09/14/23 mL) subcutaneous pen (Basaglar KwikPen U-100 Insulin) levothyroxine 50 mcg tablet 50 mcg PO QAM 04/13/23 09/14/23 (Synthroid) sildenafil 100 mg tablet (Viagra) 100 mg PO ONCE PRN sexual activity 04/13/23 09/14/23 triamcinolone acetonide 0.1 % 1 applic topical BID PRN Itching 04/13/23 09/14/23 topical cream (Triderm) ferrous sulfate 140 mg (45 mg 45 mg PO BID 05/23/23 09/14/23 iron) tablet,extended release Previous Rx's Medication Instructions Recorded nystatin 100,000 unit/gram topical 1 applic topical BID PRN Itching 06/13/22 cream #30 grams simvastatin 40 mg tablet 40 mg PO HS #90 tabs 11/03/22 insulin regular human 100 unit/mL See Rx Instructions subcut TIDM 12/04/22 injection solution (Novolin R #40 mL Regular U-100 Insulin) metoprolol succinate 50 mg 75 mg (1.5 x 50 mg) PO HS #135 tabs 01/09/23 tablet,extended release 24 hr insulin syringe,safetyneedle 0.3 #700 ea 01/15/23 mL 31 gauge x 15/64" (BD SafetyGlide Insulin Syringe) clonidine HCl 0.1 mg tablet 0.1 mg PO HS #90 tabs 03/16/23 pen needle, diabetic 31 gauge x #200 ea 04/27/23 3/16" (BD Ultra-Fine Mini Pen Needle) tramadol 50 mg tablet 50 mg PO Q8H PRN pain #10 tabs 07/03/23 fluticasone propionate 50 1 spray intranasal BID #3 BTLS 07/16/23 mcg/actuation nasal spray,suspension (Flonase Allergy Relief) hepatitis B vaccine 20 mcg/0.5 0.5 ml IM Q30D 2 doses #2.5 mL 07/26/23 mL-adjuvant CpG 1018 (PF) IM syringe (Heplisav-B (PF)) alprazolam 0.5 mg tablet 0.5 mg PO DAILY PRN anxiety #20 08/08/23 tabs iron sucrose 200 mg iron/10 mL 200 mg (10 mL) IV DAILY 5 doses 08/29/23 intravenous solution (Venofer) tramadol 50 mg tablet 50 mg PO BID PRN pain 30 days #60 09/04/23 tabs finasteride 5 mg tablet (Proscar) 5 mg PO DAILY #90 tabs 09/06/23 tamsulosin 0.4 mg capsule 0.8 mg (2 x 0.4 mg) PO DAILY #180 09/06/23 caps darbepoetin jude in polysorbat 60 60 mcg subcut .COMPLEX #4 mL 09/12/23 mcg/mL in polysorbate injection (Aranesp) hepatitis B vaccine 20 mcg/0.5 0.5 ml IM Q30D 2 doses #2.5 mL 09/12/23 mL-adjuvant CpG 1018 (PF) IM syringe (Heplisav-B (PF)) Results & Data (ED) Vital Signs Vital Signs - 24 hr 09/18/23 14:31 09/18/23 14:31 09/18/23 14:43 Temperature 36.4 C L Temperature Source Oral Oral Pulse Rate 94 H 94 H Pulse Rate [Apical] Pulse Rhythm [Apical] Pulse Strength [Apical] Respiratory Rate 22 24 Respiratory Effort / Characteristics Spontaneous Respiratory Depth Respiratory Pattern Blood Pressure 148/79 H Blood Pressure [Right Arm] Blood Pressure Mean 102 Blood Pressure Mean [Right Arm] Pulse Oximetry 90 94 Oxygen Delivery Method Non-rebreather Oxygen Flow Rate 15 Fraction of Inspired Oxygen 60 Sepsis Recent Fever Within 48 Hours No Sepsis New/Unexplained Change in Mental Status No Sepsis Action Taken by Nursing No Action Required 09/18/23 15:12 09/18/23 17:03 Temperature Temperature Source Pulse Rate 94 H Pulse Rate [Apical] 91 H Pulse Rhythm [Apical] Regular Pulse Strength [Apical] Normal Respiratory Rate 25 H Respiratory Effort / Characteristics Non-Labored Spontaneous Respiratory Depth Normal Respiratory Pattern Regular Blood Pressure Blood Pressure [Right Arm] 145/95 H Blood Pressure Mean Blood Pressure Mean [Right Arm] 111 Pulse Oximetry 93 Oxygen Delivery Method BiPAP Oxygen Flow Rate Fraction of Inspired Oxygen Sepsis Recent Fever Within 48 Hours Sepsis New/Unexplained Change in Mental Status Sepsis Action Taken by Nursing Laboratory Data 09/18/23 14:45 09/18/23 14:45 Lab Results 09/18/23 09/18/23 09/18/23 Range/Units 14:45 16:05 16:43 WBC 8.26 (4.8-10.8) K/ul RBC 3.85 L (4.70-6.10) M/uL Hgb 11.3 L (14.0-18.0) g/dl Hct 37.1 L (42.0-52.0) % MCV 96.4 (80.0-100.0) fL MCH 29.4 (25.0-34.0) pg MCHC 30.5 L (32.0-36.0) g/dL RDW Std Deviation 57.4 H (36.4-46.3) fL RDW Coeff of Aysha 16.2 H (11.5-14.5) % Plt Count 256 (130-400) K/uL MPV 10.4 (9.4-12.4) fL Immature Gran % (Auto) 0.5 % Neut % (Auto) 92.5 % Lymph % (Auto) 3.4 % [place] % (Auto) 3.1 % Eos % (Auto) 0.1 % Baso % (Auto) 0.4 % Neut # (Auto) 7.64 H (1.40-6.50) K/uL Lymph # (Auto) 0.28 L (1.20-3.40) K/uL [place] # (Auto) 0.26 (0.11-0.59) K/uL Eos # (Auto) 0.01 (0.00-0.50) K/uL Baso # (Auto) 0.03 (0.00-0.20) K/uL Immature Gran # (Auto) 0.04 (0.01-0.20) K/uL VBG pH (7.36-7.41) VBG pCO2 (38-50) mmHg VBG pO2 mmHg VBG HCO3 mmol/L VBG O2 Saturation % VBG Base Excess mEq/L Sodium 140 (136-145) mmol/L Potassium 4.8 (3.5-5.1) mmol/L Chloride 107 (98-107) mmol/L Carbon Dioxide 20 L (21-32) mmol/L Anion Gap 13 H (3-11) BUN 71 H (6-23) mg/dl Creatinine 5.32 H* (0.6-1.4) mg/dl Est Cr Clr Drug Dosing 12.7 ml/min Est GFR ( Amer) 10.7 ml/min Est GFR (Non-Af Amer) 9.2 ml/min BUN/Creatinine Ratio 13.3 (10-20) Glucose 330 H* (70-99(Fasting)) mg/dl Lactate 1.8 (0.4-2.0) mmol/L Calcium 9.8 (8.6-10.3) mg/dl Magnesium 2.0 (1.7-2.4) mg/dl Total Bilirubin 0.5 (0.2-1.0) mg/dl Direct Bilirubin 0.1 (0-0.2) mg/dl AST 65 H (13-39) U/L ALT 22 (7-52) U/L Alkaline Phosphatase 88 (34-104) U/L Total Creatine Kinase 606 H (30-223) U/L Troponin I High Sens 7843.0 H* (0-20) pg/ml B-Natriuretic Peptide 598 H (0-100) pg/ml Total Protein 7.3 (6.0-8.3) gm/dl Albumin 4.1 (3.4-5.0) gm/dl Lipase 11 (11-82) U/L Procalcitonin 0.23 (0-0.5) ng/ml 09/18/23 Range/Units Unknown WBC (4.8-10.8) K/ul RBC (4.70-6.10) M/uL Hgb (14.0-18.0) g/dl Hct (42.0-52.0) % MCV (80.0-100.0) fL MCH (25.0-34.0) pg MCHC (32.0-36.0) g/dL RDW Std Deviation (36.4-46.3) fL RDW Coeff of Aysha (11.5-14.5) % Plt Count (130-400) K/uL MPV (9.4-12.4) fL Immature Gran % (Auto) % Neut % (Auto) % Lymph % (Auto) % [place] % (Auto) % Eos % (Auto) % Baso % (Auto) % Neut # (Auto) (1.40-6.50) K/uL Lymph # (Auto) (1.20-3.40) K/uL [place] # (Auto) (0.11-0.59) K/uL Eos # (Auto) (0.00-0.50) K/uL Baso # (Auto) (0.00-0.20) K/uL Immature Gran # (Auto) (0.01-0.20) K/uL VBG pH 7.14 L (7.36-7.41) VBG pCO2 59 H (38-50) mmHg VBG pO2 37 mmHg VBG HCO3 20 mmol/L VBG O2 Saturation < 60.0 % VBG Base Excess -9.5 mEq/L Sodium (136-145) mmol/L Potassium (3.5-5.1) mmol/L Chloride (98-107) mmol/L Carbon Dioxide (21-32) mmol/L Anion Gap (3-11) BUN (6-23) mg/dl Creatinine (0.6-1.4) mg/dl Est Cr Clr Drug Dosing ml/min Est GFR ( Amer) ml/min Est GFR (Non-Af Amer) ml/min BUN/Creatinine Ratio (10-20) Glucose (70-99(Fasting)) mg/dl Lactate 3.2 H* (0.4-2.0) mmol/L Calcium (8.6-10.3) mg/dl Magnesium (1.7-2.4) mg/dl Total Bilirubin (0.2-1.0) mg/dl Direct Bilirubin (0-0.2) mg/dl AST (13-39) U/L ALT (7-52) U/L Alkaline Phosphatase (34-104) U/L Total Creatine Kinase (30-223) U/L Troponin I High Sens (0-20) pg/ml B-Natriuretic Peptide (0-100) pg/ml Total Protein (6.0-8.3) gm/dl Albumin (3.4-5.0) gm/dl Lipase (11-82) U/L Procalcitonin (0-0.5) ng/ml Administered Medications Discontinued Medications Furosemide (Furosemide 40 Mg/4 Ml Vial) 40 mg IV ONE ONE Stop: 09/18/23 15:49 Last Admin: 09/18/23 16:07 Dose: 40 mg Documented By: JIL Piperacillin Sod/Tazobactam Sod (Zosyn) 4.5 gm in 100 mls @ 200 mls/hr IV NOW ONE Stop: 09/18/23 16:17 Last Admin: 09/18/23 17:00 Dose: 200 mls/hr Documented By: JIL Imaging Data Radiologist's Impression: Cervical Spine CT 09/18/23 14:31 CT SCAN OF THE CERVICAL SPINE CLINICAL HISTORY: Fall. Head injury. COMPARISON STUDY: No priors. TECHNIQUE: CT scan of the cervical spine is performed from the skull base to the upper thoracic spine. Images are reviewed in the axial, sagittal, and coronal planes. IV contrast was not administered for this examination. A dose lowering technique was utilized adhering to the principles of ALARA. FINDINGS: Skeletal structures: The skeletal structures are osteopenia. There is no evidence of fracture or subluxation involving the cervical spine. Vertebral body height and alignment are maintained. There is straightening of the cervical lordosis. Anterior osteophytes are seen throughout. The odontoid process and lateral masses are intact. The atlantoaxial articulation is preserved noting productive degenerative change. The spinous processes appear intact. There is mild multilevel facet arthropathy. This contributes to neural foraminal narrowing in the lower cervical region. Intervertebral discs: There is moderate to severe disc space narrowing at all cervical levels between C3-C4 and C6-C7. Central canal: Posterior disc osteophyte complexes are seen at all cervical levels between C3-C4 and C6-C7. This likely contributes to multilevel acquired compromise of the central canal. Soft tissues: The prevertebral and paraspinous soft tissues are within normal limits. There is atherosclerotic calcification of the carotid bulbs. Calvarium: The visualized calvarium at the skull base appears intact. Brain parenchyma: Partially visualized brain parenchyma at the skull base is within normal limits. Sinuses and mastoids: There is trace mucosal thickening and a small air-fluid level in the right maxillary antrum. Trace mucosal thickening is also seen in the left sphenoid sinus. There is a small right mastoid effusion. The left mastoid air cells are well pneumatized. Lung apices: A right pleural effusion is noted. Airspace opacities are seen at the left apex. Intralobular septal thickening is observed. IMPRESSION: 1. There is no evidence of fracture or subluxation involving the cervical spine. 2. Osteopenia and spondylotic change as above. 3. A right pleural effusion and left apical pulmonary opacities are partially visualized. ACT 112: Negative or not required by law. Electronically signed by: Dez Munoz M.D. 09/18/2023 3:[address] 09/18/23 14:31 CT head/brain wo con CLINICAL HISTORY: 83 years-old Male with closed head injury. Acute head trauma TECHNIQUE: Multiple axial CT images of the head were obtained without contrast. A dose lowering technique was utilized adhering to the principles of ALARA. CT DOSE: 2759.79 mGy.cm COMPARISON: 07/09/2020 FINDINGS: Motion degraded exam. No acute intracranial hemorrhage, midline shift, intra- axial mass, hydrocephalus, territorial ischemia or abnormal extra-axial collection. Involutional changes with chronic microvascular ischemic disease. Unchanged left middle cranial fossa arachnoid cyst, 3.6 cm. Cerebrovascular calcifications. The calvarium is intact. Trace mastoid effusions, right greater than left. Mild mucosal thickening of the paranasal sinuses with right maxillary air-fluid level. Unremarkable soft tissues. Prior bilateral lens repair. Mild subcutaneous edema of the right lateral cheek and periorbital tissues. IMPRESSION: No acute intracranial abnormality or calvarial fracture. ACT 112: Negative or not required by law. The above report was generated using voice recognition software. It may contain grammatical, syntax or spelling errors. Electronically signed by: Gary Litnon M.D. 09/18/2023 3:58 PM Pelvis X-Ray 09/18/23 14:31 SINGLE VIEW PELVIS CLINICAL HISTORY: Trauma. FINDINGS: 2 AP, portable, supine abdominal radiographs are correlated with pelvic CT dated 02/20/2011. The skeletal structures are osteopenic. There is no radiographic evidence of acute fracture involving the hips or bony pelvis. The upper pelvis is not well-visualized due to overlying pannus. Moderate arthritic change and joint space narrowing is seen in the hips. There is degenerative sclerosis of the sacroiliac joints. Atherosclerotic calcification is noted in the femoral arteries. IMPRESSION: No acute bony abnormality is identified. Electronically signed by: Dez Munoz M.D. 09/18/2023 3:31 PM Chest X-Ray 09/18/23 14:32 SINGLE VIEW CHEST CLINICAL HISTORY: Dyspnea FINDINGS: 2 AP, portable, upright chest radiographs are compared to study dated 12/04/2022. The examination is degraded by portable technique and patient rotation. The heart is enlarged. There is pulmonary vascular congestion. Bilateral airspace opacities likely representing interstitial edema. There are right larger than left pleural effusions with dependent consolidation. No pneumothorax is seen. The skeletal structures are osteopenic. Bony thorax is grossly intact. IMPRESSION: 1. Cardiomegaly with evidence of congestive failure. 2. Bilateral airspace opacities likely represent pulmonary edema. Correlate clinically for evidence of a superimposed infectious/inflammatory pneumonitis. Radiographic follow-up to resolution is recommended. 3. Right larger than left pleural effusions with dependent consolidation. ACT 112: Negative or not required by law. Electronically signed by: Dez Munoz M.D. 09/18/2023 3:30 PM Discharge Plan Visit Data Chief Complaint: Fall ED Provider: Jacobo Kirkland Discharge Problem: Acute pulmonary edema, Acute hypoxemic respiratory failure, Acute lactic acidosis, Closed head injury, Elevated troponin Forms Stand Alone Forms: [employer] Prescriptions Prescriptions: No Action nystatin 100,000 unit/gram cream 1 applic TOP BID PRN (Reason: Itching) Qty: 30 0RF simvastatin 40 mg tablet 40 mg PO HS Qty: 90 3RF metoprolol succinate 50 mg tablet extended release 24 hr 75 mg PO HS Qty: 135 3RF Rx Instructions: 50 mg PO Take 1 1/2 tablets at bedtime ; (DME) BD SafetyGlide Insulin Syringe 0.3 mL 31 gauge x 15/64" syringe MISCELLANEOUS Qty: 700 3RF Rx Instructions: Use 7 times daily clonidine HCl 0.1 mg tablet 0.1 mg PO HS Qty: 90 3RF (DME) pen needle, diabetic [BD Ultra-Fine Mini Pen Needle] 31 gauge x 3/16" needle MISCELLANEOUS Qty: 200 3RF Rx Instructions: use 2 daily fluticasone propionate [Flonase Allergy Relief] 50 mcg/actuation spray,suspension 1 spray intranasal BID Qty: 3 5RF alprazolam 0.5 mg tablet 0.5 mg PO DAILY PRN (Reason: anxiety) Qty: 20 5RF tramadol 50 mg tablet 50 mg PO BID PRN (Reason: pain) 30 Days Qty: 60 5RF ferrous sulfate 140 mg (45 mg iron) tablet extended release 45 mg PO BID finasteride [Proscar] 5 mg tablet 5 mg PO DAILY Qty: 90 3RF tamsulosin 0.4 mg capsule 0.8 mg PO DAILY Qty: 180 3RF Heplisav-B (PF) 20 mcg/0.5 mL syringe 0.5 ml IM Q30D Qty: 2.5 0RF Venofer 200 mg iron/10 mL solution 200 mg IV DAILY Rx Instructions: administer over 30 mins Novolin R Regular U100 Insulin 100 unit/mL solution See Rx Instructions SQ TIDM Qty: 40 5RF Rx Instructions: patient states takes 10-11 units for breakfast, 5-6 units for lunch, 13-22 units for supper TDD 40 units FILL WHEN REQUESTED Heplisav-B (PF) 20 mcg/0.5 mL syringe 0.5 ml IM Q30D Qty: 2.5 0RF Aranesp (in polysorbate) 60 mcg/mL solution 60 mcg subcut .COMPLEX Qty: 4 0RF Rx Instructions: 60 mcg subcutaneously q 2 weeks, hold for hgb >11; (DME) FreeStyle [place] 14 Day Sensor Kit MISCELLANEOUS (DME) FreeStyle [place] 14 Day [place] Misc MISCELLANEOUS furosemide 40 mg tablet 40 mg PO QAM pantoprazole 40 mg tablet,delayed release (DR/EC) 40 mg PO QAM sildenafil [Viagra] 100 mg tablet 100 mg PO ONCE PRN (Reason: sexual activity) Rx Instructions: administer 30 minutes to 4 hours before activity triamcinolone acetonide [Triderm] 0.1 % cream 1 applic TOP BID PRN (Reason: Itching) levothyroxine [Synthroid] 50 mcg tablet 50 mcg PO QAM Rx Instructions: 50 mcg PO TAKE ON AN EMPTY STOMACH WITH A FULL GLASS OF WATER, WAIT 30 MINUTES TO EAT, DRINK, OR TAKE MEDICATIONS; ezetimibe [Zetia] 10 mg tablet 10 mg PO QPM insulin glargine [Basaglar KwikPen U-100 Insulin] 100 unit/mL (3 mL) insulin pen 27 unit subcut QPM tramadol 50 mg tablet 50 mg PO Q8H PRN (Reason: pain) Qty: 10 0RF Referrals Referrals: Orly Dickson MD [Primary Care Provider] - Discharge Problem: Closed head injury Qualifiers: Encounter type: initial encounter Qualified Code(s): S09.90XA - Unspecified injury of head, initial encounter
[2023-09-18 15:07] LABS: Base Excess VBG -9.5 mEq/L; HCO3 VBG 20 mmol/L; Oxygen Saturation VBG < 60.0 %; PCO2 VBG 59 mmHg (38-50); PO2 VBG 37 mmHg; pH VBG 7.14 (7.36-7.41)
[2023-09-18 15:12] LABS: Hematocrit (blood only) 37.1 % (42.0-52.0); Hemoglobin 11.3 g/dl (14.0-18.0); Mean Corpuscular Hemoglobin 29.4 pg (25.0-34.0); Mean Corpuscular Hgb Conc 30.5 g/dL (32.0-36.0); Mean Corpuscular Volume 96.4 fL (80.0-100.0); Mean Platelet Volume 10.4 fL (9.4-12.4); Platelet Count 256 K/uL (130-400); RDW Coefficient of Variation 16.2 % (11.5-14.5); RDW Standard Deviation 57.4 fL (36.4-46.3); Red Blood Count 3.85 M/uL (4.70-6.10); White Blood Count 8.26 K/ul (4.8-10.8)
--- NOTE | 2023-09-18 15:31 | XRay Report ---
SINGLE VIEW CHEST CLINICAL HISTORY: Dyspnea FINDINGS: 2 AP, portable, upright chest radiographs are compared to study dated 12/04/2022. The examin ation is degraded by portable technique and patient rotation. The heart is enlarged. There is pulmona ry vascular congestion. Bilateral airspace opacities likely representing interstitial edema. There ar e right larger than left pleural effusions with dependent consolidation. No pneumothorax is seen. The skeletal structures are osteopenic. Bony thorax is grossly intact. IMPRESSION: 1. Cardiomegaly with evidence of congestive failure. 2. Bilateral airspace opacities likely represent pulmonary edema. Correlate clinically for evidence o f a superimposed infectious/inflammatory pneumonitis. Radiographic follow-up to resolution is recomme nded. 3. Right larger than left pleural effusions with dependent consolidation. ACT 112: Negative or not required by law. Electronically signed by: Dez Munoz M.D. 09/18/2023 3:30 PM
--- NOTE | 2023-09-18 15:32 | XRay Report ---
SINGLE VIEW PELVIS CLINICAL HISTORY: Trauma. FINDINGS: 2 AP, portable, supine abdominal radiographs are correlated with pelvic CT dated 02/20/2011. The skeletal structures are osteopenic. There is no radiographic evidence of acute fracture involvin g the hips or bony pelvis. The upper pelvis is not well-visualized due to overlying pannus. Moderate arthritic change and joint space narrowing is seen in the hips. There is degenerative sclerosis of th e sacroiliac joints. Atherosclerotic calcification is noted in the femoral arteries. IMPRESSION: No acute bony abnormality is identified. Electronically signed by: Dez Munoz M.D. 09/18/2023 3:31 PM
[2023-09-18 15:39] LABS: Albumin Level 4.1 gm/dl (3.4-5.0); BUN Creatinine Ratio 13.3 (10-20); Bilirubin Direct 0.1 mg/dl (0-0.2); Bilirubin,Total 0.5 mg/dl (0.2-1.0); Calcium 9.8 mg/dl (8.6-10.3); Creatinine Clr Calc Pharmacy 12.7 ml/min; Est GFR (African American) 10.7 ml/min; Est GFR (Non-African American) 9.2 ml/min; Potassium 4.8 mmol/L (3.5-5.1); Total Protein 7.3 gm/dl (6.0-8.3)
--- NOTE | 2023-09-18 15:44 | Electrocardiogram Report ---
Test Reason : Blood Pressure : / mmHG Vent. Rate : 090 BPM Atrial Rate : 090 BPM P-R Int : 200 ms QRS Dur : 122 ms QT Int : 406 ms P-R-T Axes : 090 -36 074 degrees QTc Int : 496 ms Normal sinus rhythm Left axis deviation Left ventricular hypertrophy with QRS widening Abnormal ECG When compared with ECG of 04-DEC-2022 12:26, T wave amplitude has increased in Lateral leads Confirmed by David Zhou ([id number]) on 09/18/2023 3:44:26 PM Referred By: Confirmed By:Haim Zhou
[2023-09-18 15:47] LABS: Basophils # (auto) 0.03 K/uL (0.00-0.20); Basophils % (auto) 0.4 %; Eosinophils # (auto) 0.01 K/uL (0.00-0.50); Eosinophils % (auto) 0.1 %; Immature Granulocytes # (auto) 0.04 K/uL (0.01-0.20); Immature Granulocytes % (auto) 0.5 %; Lymphocytes # (auto) 0.28 K/uL (1.20-3.40); Lymphocytes % (auto) 3.4 %; Monocytes # (auto) 0.26 K/uL (0.11-0.59); Monocytes % (auto) 3.1 %; Neutrophils # (auto) 7.64 K/uL (1.40-6.50); Neutrophils % (auto) 92.5 %
[2023-09-18] MEDS ORDERED: PIPERACILLIN/TAZOBACTAM 4.5 GM/100 ML BAG IV ONE (15:48)
[2023-09-18] MEDS ORDERED: FUROSEMIDE 40 MG/4 ML VIAL IV ONE (15:48)
--- NOTE | 2023-09-18 16:00 | CT Scan Report ---
CT SCAN OF THE CERVICAL SPINE CLINICAL HISTORY: Fall. Head injury. COMPARISON STUDY: No priors. TECHNIQUE: CT scan of the cervical spine is performed from the skull base to the upper thoracic spine . Images are reviewed in the axial, sagittal, and coronal planes. IV contrast was not administered fo r this examination. A dose lowering technique was utilized adhering to the principles of ALARA. FINDINGS: Skeletal structures: The skeletal structures are osteopenia. There is no evidence of fracture or subl uxation involving the cervical spine. Vertebral body height and alignment are maintained. There is st raightening of the cervical lordosis. Anterior osteophytes are seen throughout. The odontoid process and lateral masses are intact. The atlantoaxial articulation is preserved noting productive degenerat devi change. The spinous processes appear intact. There is mild multilevel facet arthropathy. This con tributes to neural foraminal narrowing in the lower cervical region. Intervertebral discs: There is moderate to severe disc space narrowing at all cervical levels between C3-C4 and C6-C7. Central canal: Posterior disc osteophyte complexes are seen at all cervical levels between C3-C4 and C6-C7. This likely contributes to multilevel acquired compromise of the central canal. Soft tissues: The prevertebral and paraspinous soft tissues are within normal limits. There is athero sclerotic calcification of the carotid bulbs. Calvarium: The visualized calvarium at the skull base appears intact. Brain parenchyma: Partially visualized brain parenchyma at the skull base is within normal limits. Sinuses and mastoids: There is trace mucosal thickening and a small air-fluid level in the right maxi llary antrum. Trace mucosal thickening is also seen in the left sphenoid sinus. There is a small righ t mastoid effusion. The left mastoid air cells are well pneumatized. Lung apices: A right pleural effusion is noted. Airspace opacities are seen at the left apex. Intralo bular septal thickening is observed. IMPRESSION: 1. There is no evidence of fracture or subluxation involving the cervical spine. 2. Osteopenia and spondylotic change as above. 3. A right pleural effusion and left apical pulmonary opacities are partially visualized. ACT 112: Negative or not required by law. Electronically signed by: Dez Munoz M.D. 09/18/2023 3:58 PM
--- NOTE | 2023-09-18 16:00 | CT Scan Report ---
CT head/brain wo con CLINICAL HISTORY: 83 years-old Male with closed head injury. Acute head trauma TECHNIQUE: Multiple axial CT images of the head were obtained without contrast. A dose lowering tech nique was utilized adhering to the principles of ALARA. CT DOSE: 2759.79 mGy.cm COMPARISON: 07/09/2020 FINDINGS: Motion degraded exam. No acute intracranial hemorrhage, midline shift, intra-axial mass, hydrocephalu s, territorial ischemia or abnormal extra-axial collection. 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 Unchanged left middle cranial fossa arachnoid cyst, 3.6 cm. Cerebrovascular calcifications. The calvarium is intact. Trace mastoid effusions, right greater than left. Mild mucosal thickening o f the paranasal sinuses with right maxillary air-fluid level. Unremarkable soft tissues. Prior bilate ral lens repair. Mild subcutaneous edema of the right lateral cheek and periorbital tissues. IMPRESSION: No acute intracranial abnormality or calvarial fracture. ACT 112: Negative or not required by law. The above report was generated using voice recognition software. It may contain grammatical, syntax o r spelling errors. Electronically signed by: Gary Linton M.D. 09/18/2023 3:58 PM
--- NOTE | 2023-09-18 16:40 | History & Physical Report ---
Date of Service September 18, 2023 Assessment & Plan (1) Shortness of breath: Plan: 89 yo female with PMHx recurrent UTI, recurrent falls, failure to thrive, DM2. HLD, anxiety, depression, HTN, cystocele, and constipation presents with weakness. #Shortness of Breath #Acute on chronic HFpEF in exacerbation #Acute respiratory distress -presented with 3 days ongoing shortness of breath. He had a mechanical fall and was unable to get up due to weakness. Did meet SIRs criteria on admission (/- elevated RR, HR). No leukocytosis. Procal neg. Lactate 3.2 with subsequent improvement. CK 600. BNP 600. -echo (01/2023): mild-moderate aortic stenosis, EF 60-65%. -head CT neg for bleed -CXR: cardiomegaly, bilateral airspace opacities, R>L pleural effusions; Radiographic follow-up to resolution is recommended. -initial VBG pH 7.14. Subsequent ABG with respiratory support pH 7.23, improving. -blood cx pending -received lasix 40mg IV in ED. Danielson placed due to h/o urinary obstruction with 700cc urine output. Will cont. this dose daily for now. Will need to be cautious given his Cr. Breathing did improve and is now on cpap. -cont. metoprolol. Started on nitro paste. -empirically received zosyn in ED. Cont. with cefepime. MRSA nares pending. #Elevated Troponin -on admission troponin 7800. 2hr repeat 99187. Denies chest pain. EKG without significant ST changes. Will continue trend. More likely due to demand but given sharp increase and h/o CAD with angioplasty, will place on heparin gtt. -cardiology consulted. #CKD, stage 5 -on admission Cr 5.3. Baseline ~5. Follows with nephro. Likely starting dialysis in the upcoming months. -on lasix po 40mg daily #BPH -cont. proscar, flomas #DM2 -cont. lantus + SSI #Hypothyroidism -cont. synthroid #HTN -cont. metoprolol, clonidine #GERD -cont. protonix #Iron Deficiency Anemia, stable -cont. ferrous sulfate #HLD -cont. zetia, simvastatin DVT ppx: heparin gtt FEN/GI: HH, DM2, renal - NPO @ midnight until evaluated by cardiology Code Status: DNI only Dispo: PCU (2) Elevated troponin: (3) Closed head injury: (4) Acute lactic acidosis: (5) Acute hypoxemic respiratory failure: (6) Acute pulmonary edema: (7) Anemia: (8) ASCVD (arteriosclerotic cardiovascular disease): (9) CKD (chronic kidney disease), stage IV: (10) Coronary arteriosclerosis: (11) Hypothyroidism: (12) Hypertension: (13) Dyslipidemia: (14) Controlled type 2 diabetes mellitus with kidney complication, with long- term current use of insulin: (15) BPH with obstruction/lower urinary tract symptoms: History of Present Illness Chief Complaint: weakness, sob, fall Primary Care Provider: Orly Dickson MD 83 yo male with PMHx of HTN, HLD, iron deficiency anemia, HFpEF, DM2, hypothyroidism, BPH, CKD stage 5 presents with shortness of breath. For the past 3 days patient has had ongoing shortness of breath. No worse on exertion. Earlier today he had a mechanical fall down his stairs and was unable to get up due to weakness. He was down for about 4 hours. He did hit his head and has an abrasion on his left forehead. He denies headache, fever, chest pain, abdominal pain, cough, congestion, nausea, vomiting, diarrhea, dysuria. He is compliant with his medications. He did go to his daughter's for Di breakfast and admits to having a saltier meal than his usual. No known sick contacts. Allergies Allergy/AdvReac Type Severity Reaction Status Date / Time latex Allergy Mild SKIN Verified 09/18/23 19:06 IRRITATION Home Medications Medication Instructions Recorded Confirmed Type flash glucose scanning reader 07/19/20 09/10/23 History (FreeStyle [place] 14 Day [place]) flash glucose sensor (FreeStyle 07/19/20 09/10/23 History Ritchie 14 Day Sensor kit) nystatin 100,000 unit/gram topical 1 applic topical BID PRN Itching 06/13/22 09/14/23 Rx cream #30 grams simvastatin 40 mg tablet 40 mg PO HS #90 tabs 11/03/22 09/14/23 Rx furosemide 40 mg tablet 40 mg PO QAM 11/29/22 09/14/23 History pantoprazole 40 mg tablet,delayed 40 mg PO QAM 11/29/22 09/14/23 History release insulin regular human 100 unit/mL See Rx Instructions subcut TIDM 12/04/22 09/14/23 Rx injection solution (Novolin R #40 mL Regular U-100 Insulin) metoprolol succinate 50 mg 75 mg (1.5 x 50 mg) PO HS #135 tabs 01/09/23 09/14/23 Rx tablet,extended release 24 hr insulin syringe,safetyneedle 0.3 #700 ea 01/15/23 09/10/23 Rx mL 31 gauge x 15/64" (BD SafetyGlide Insulin Syringe) clonidine HCl 0.1 mg tablet 0.1 mg PO HS #90 tabs 03/16/23 09/14/23 Rx ezetimibe 10 mg tablet (Zetia) 10 mg PO QPM 04/13/23 09/14/23 History insulin glargine 100 unit/mL (3 27 unit subcut QPM 04/13/23 09/14/23 History mL) subcutaneous pen (Basaglar KwikPen U-100 Insulin) levothyroxine 50 mcg tablet 50 mcg PO QAM 04/13/23 09/14/23 History (Synthroid) sildenafil 100 mg tablet (Viagra) 100 mg PO ONCE PRN sexual activity 04/13/23 09/14/23 History triamcinolone acetonide 0.1 % 1 applic topical BID PRN Itching 04/13/23 09/14/23 History topical cream (Triderm) pen needle, diabetic 31 gauge x #200 ea 04/27/23 09/10/23 Rx 3/16" (BD Ultra-Fine Mini Pen Needle) ferrous sulfate 140 mg (45 mg 45 mg PO BID 05/23/23 09/14/23 History iron) tablet,extended release tramadol 50 mg tablet 50 mg PO Q8H PRN pain #10 tabs 07/03/23 09/14/23 Rx fluticasone propionate 50 1 spray intranasal BID #3 BTLS 07/16/23 09/14/23 Rx mcg/actuation nasal spray,suspension (Flonase Allergy Relief) hepatitis B vaccine 20 mcg/0.5 0.5 ml IM Q30D 2 doses #2.5 mL 07/26/23 09/14/23 Rx mL-adjuvant CpG 1018 (PF) IM syringe (Heplisav-B (PF)) alprazolam 0.5 mg tablet 0.5 mg PO DAILY PRN anxiety #20 08/08/23 09/14/23 Rx tabs iron sucrose 200 mg iron/10 mL 200 mg (10 mL) IV DAILY 5 doses 08/29/23 09/14/23 Rx intravenous solution (Venofer) tramadol 50 mg tablet 50 mg PO BID PRN pain 30 days #60 09/04/23 09/14/23 Rx tabs finasteride 5 mg tablet (Proscar) 5 mg PO DAILY #90 tabs 09/06/23 09/14/23 Rx tamsulosin 0.4 mg capsule 0.8 mg (2 x 0.4 mg) PO DAILY #180 09/06/23 09/14/23 Rx caps darbepoetin jude in polysorbat 60 60 mcg subcut .COMPLEX #4 mL 09/12/23 09/14/23 Rx mcg/mL in polysorbate injection (Aranesp) hepatitis B vaccine 20 mcg/0.5 0.5 ml IM Q30D 2 doses #2.5 mL 09/12/23 09/14/23 Rx mL-adjuvant CpG 1018 (PF) IM syringe (Heplisav-B (PF)) Past Med/Surg History Medical History (Updated 09/18/23 @ 18:50 by Sachin Fernández DO) Chronic kidney disease BPH (benign prostatic hyperplasia) Arteriovenous fistula Left AVF creation 11/2022- now has occlusion- reason for upcoming procedure History of kidney stones Glaucoma HX OF- S/P TREATMENT- NO CURRENT ISSUES 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 CORDOVA CKD V Controlled type 2 diabetes mellitus with kidney complication, with long-term current use of insulin Hgb A1C 09/2022 was 7.7 Coronary arteriosclerosis S/p angioplasty 1990 (no stent or hx of CABG) Cyst of kidney, acquired Dyslipidemia Hypertension FOLLOWED BY DR. RAYO Hypothyroidism Obesity, Class II, BMI 35-39.9 Surgical History History of total right knee replacement H/O eye surgery RT/LEFT EYE FOR GLAUCOMA History of cataract surgery LEFT/RT History of total left knee replacement (TKR) X 2 History of lithotripsy a couple times History of tonsillectomy History of angioplasty at the age of 51 History of surgery scrotal hernia repair History of exploratory laparotomy History of umbilical hernia repair History of colonoscopy History of ear surgery Tympanic membrane repair--per pt a couple times Family History Father Cancer of kidney Hypertension Cardiac disorder Family/Other Cancer of kidney Bone cancer Mother Bone cancer Cardiac disorder Hypertension Other No family history of adverse response to anesthesia No family history of bleeding disorder Social History Smoking Status: Never smoker Second Hand Exposure: No; Do You Dip or Chew Tobacco: No; Hx Alcohol Use: No Hx Substance Use: No Preferred Language: Lao Communication Ability: Effective Visual Impairment: Limited Hearing Ability: Normal Leaf Sticker Required: No Beliefs That Will Affect Care: None marital status: / Current Living Situation: Alone current occupational status: employed 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 AOx3. Vitals as above. HEENT: No scleral injection or discharge. Moist mucous membranes. Neck: Supple without lymphadenopathy. Trachea midline. Lungs: Diffuse rales. No wheezes Labored breathing but speaks in complete sentences. Cardiac: Tachycardic. Regular rhythm. 2+ lower extremity edema bilaterally. 2+ distal peripheral pulses. Abdomen: Distended. Soft. Nontender.No guarding. MSK: No cyanosis or clubbing. Extremities motor strength 5/5. Skin: +nontender erythema L forehead from fall without open wound Neurologic: no focal deficits Results & Data Results & Data Vital Signs (Past 12 Hours) Vital Signs Temp Pulse Resp BP Pulse Ox O2 Del Method O2 Flow Rate 09/18/23 15:12 94 H 09/18/23 14:43 94 H 24 94 09/18/23 14:31 36.4 C L 94 H 22 148/79 H 90 Non-rebreather 15 FiO2 09/18/23 15:12 09/18/23 14:43 60 09/18/23 14:31 Laboratory Results Laboratory Results WBC 8.26 K/ul (4.8-10.8) 09/18/23 14:45 RBC 3.85 M/uL (4.70-6.10) L 09/18/23 14:45 Hgb 11.3 g/dl (14.0-18.0) L 09/18/23 14:45 Hct 37.1 % (42.0-52.0) L 09/18/23 14:45 MCV 96.4 fL (80.0-100.0) 09/18/23 14:45 MCH 29.4 pg (25.0-34.0) 09/18/23 14:45 MCHC 30.5 g/dL (32.0-36.0) L 09/18/23 14:45 RDW Std Deviation 57.4 fL (36.4-46.3) H 09/18/23 14:45 RDW Coeff of Aysha 16.2 % (11.5-14.5) H 09/18/23 14:45 Plt Count 256 K/uL (130-400) 09/18/23 14:45 MPV 10.4 fL (9.4-12.4) 09/18/23 14:45 Immature Gran % (Auto) 0.5 % 09/18/23 14:45 Neut % (Auto) 92.5 % 09/18/23 14:45 Lymph % (Auto) 3.4 % 09/18/23 14:45 [place] % (Auto) 3.1 % 09/18/23 14:45 Eos % (Auto) 0.1 % 09/18/23 14:45 Baso % (Auto) 0.4 % 09/18/23 14:45 Neut # (Auto) 7.64 K/uL (1.40-6.50) H 09/18/23 14:45 Lymph # (Auto) 0.28 K/uL (1.20-3.40) L 09/18/23 14:45 [place] # (Auto) 0.26 K/uL (0.11-0.59) 09/18/23 14:45 Eos # (Auto) 0.01 K/uL (0.00-0.50) 09/18/23 14:45 Baso # (Auto) 0.03 K/uL (0.00-0.20) 09/18/23 14:45 Immature Gran # (Auto) 0.04 K/uL (0.01-0.20) 09/18/23 14:45 VBG pH 7.14 (7.36-7.41) L 09/18/23 Unknown VBG pCO2 59 mmHg (38-50) H 09/18/23 Unknown VBG pO2 37 mmHg 09/18/23 Unknown VBG HCO3 20 mmol/L 09/18/23 Unknown VBG O2 Saturation < 60.0 % 09/18/23 Unknown VBG Base Excess -9.5 mEq/L 09/18/23 Unknown Sodium 140 mmol/L (136-145) 09/18/23 14:45 Potassium 4.8 mmol/L (3.5-5.1) 09/18/23 14:45 Chloride 107 mmol/L (98-107) 09/18/23 14:45 Carbon Dioxide 20 mmol/L (21-32) L 09/18/23 14:45 Anion Gap 13 (3-11) H 09/18/23 14:45 BUN 71 mg/dl (6-23) H 09/18/23 14:45 Creatinine 5.32 mg/dl (0.6-1.4) H* 09/18/23 14:45 Est Cr Clr Drug Dosing 12.7 ml/min 09/18/23 14:45 Est GFR ( Amer) 10.7 ml/min 09/18/23 14:45 Est GFR (Non-Af Amer) 9.2 ml/min 09/18/23 14:45 BUN/Creatinine Ratio 13.3 (10-20) 09/18/23 14:45 Glucose 330 mg/dl (70-99(Fasting)) H* 09/18/23 14:45 Lactate 3.2 mmol/L (0.4-2.0) H* 09/18/23 Unknown Calcium 9.8 mg/dl (8.6-10.3) 09/18/23 14:45 Magnesium 2.0 mg/dl (1.7-2.4) 09/18/23 14:45 Total Bilirubin 0.5 mg/dl (0.2-1.0) 09/18/23 14:45 Direct Bilirubin 0.1 mg/dl (0-0.2) 09/18/23 14:45 AST 65 U/L (13-39) H 09/18/23 14:45 ALT 22 U/L (7-52) 09/18/23 14:45 Alkaline Phosphatase 88 U/L (34-104) 09/18/23 14:45 Total Creatine Kinase 606 U/L (30-223) H 09/18/23 14:45 Troponin I High Sens 7843.0 pg/ml (0-20) H* 09/18/23 14:45 Total Protein 7.3 gm/dl (6.0-8.3) 09/18/23 14:45 Albumin 4.1 gm/dl (3.4-5.0) 09/18/23 14:45 Lipase 11 U/L (11-82) 09/18/23 14:45 Procalcitonin 0.23 ng/ml (0-0.5) 09/18/23 14:[address] 09/18/23 14:31 CT SCAN OF THE CERVICAL SPINE CLINICAL HISTORY: Fall. Head injury. COMPARISON STUDY: No priors. TECHNIQUE: CT scan of the cervical spine is performed from the skull base to the upper thoracic spine. Images are reviewed in the axial, sagittal, and coronal planes. IV contrast was not administered for this examination. A dose lowering technique was utilized adhering to the principles of ALARA. FINDINGS: Skeletal structures: The skeletal structures are osteopenia. There is no evidence of fracture or subluxation involving the cervical spine. Vertebral body height and alignment are maintained. There is straightening of the cervical lordosis. Anterior osteophytes are seen throughout. The odontoid process and lateral masses are intact. The atlantoaxial articulation is preserved noting productive degenerative change. The spinous processes appear intact. There is mild multilevel facet arthropathy. This contributes to neural foraminal narrowing in the lower cervical region. Intervertebral discs: There is moderate to severe disc space narrowing at all cervical levels between C3-C4 and C6-C7. Central canal: Posterior disc osteophyte complexes are seen at all cervical levels between C3-C4 and C6-C7. This likely contributes to multilevel acquired compromise of the central canal. Soft tissues: The prevertebral and paraspinous soft tissues are within normal limits. There is atherosclerotic calcification of the carotid bulbs. Calvarium: The visualized calvarium at the skull base appears intact. Brain parenchyma: Partially visualized brain parenchyma at the skull base is within normal limits. Sinuses and mastoids: There is trace mucosal thickening and a small air-fluid level in the right maxillary antrum. Trace mucosal thickening is also seen in the left sphenoid sinus. There is a small right mastoid effusion. The left mastoid air cells are well pneumatized. Lung apices: A right pleural effusion is noted. Airspace opacities are seen at the left apex. Intralobular septal thickening is observed. IMPRESSION: 1. There is no evidence of fracture or subluxation involving the cervical spine. 2. Osteopenia and spondylotic change as above. 3. A right pleural effusion and left apical pulmonary opacities are partially visualized. ACT 112: Negative or not required by law. Electronically signed by: Dez Munoz M.D. 09/18/2023 3:[address] 09/18/23 14:31 CT head/brain wo con CLINICAL HISTORY: 83 years-old Male with closed head injury. Acute head trauma TECHNIQUE: Multiple axial CT images of the head were obtained without contrast. A dose lowering technique was utilized adhering to the principles of ALARA. CT DOSE: 2759.79 mGy.cm COMPARISON: 07/09/2020 FINDINGS: Motion degraded exam. No acute intracranial hemorrhage, midline shift, intra- axial mass, hydrocephalus, territorial ischemia or abnormal extra-axial collection. 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 Unchanged left middle cranial fossa arachnoid cyst, 3.6 cm. Cerebrovascular calcifications. The calvarium is intact. Trace mastoid effusions, right greater than left. Mild mucosal thickening of the paranasal sinuses with right maxillary air-fluid level. Unremarkable soft tissues. Prior bilateral lens repair. Mild subcutaneous edema of the right lateral cheek and periorbital tissues. IMPRESSION: No acute intracranial abnormality or calvarial fracture. ACT 112: Negative or not required by law. The above report was generated using voice recognition software. It may contain grammatical, syntax or spelling errors. Electronically signed by: Gary Linton M.D. 09/18/2023 3:58 PM Pelvis X-Ray 09/18/23 14:31 SINGLE VIEW PELVIS CLINICAL HISTORY: Trauma. FINDINGS: 2 AP, portable, supine abdominal radiographs are correlated with pelvic CT dated 02/20/2011. The skeletal structures are osteopenic. There is no radiographic evidence of acute fracture involving the hips or bony pelvis. The upper pelvis is not well-visualized due to overlying pannus. Moderate arthritic change and joint space narrowing is seen in the hips. There is degenerative sclerosis of the sacroiliac joints. Atherosclerotic calcification is noted in the femoral arteries. IMPRESSION: No acute bony abnormality is identified. Electronically signed by: Dez Munoz M.D. 09/18/2023 3:31 PM Chest X-Ray 09/18/23 14:32 SINGLE VIEW CHEST CLINICAL HISTORY: Dyspnea FINDINGS: 2 AP, portable, upright chest radiographs are compared to study dated 12/04/2022. The examination is degraded by portable technique and patient rotation. The heart is enlarged. There is pulmonary vascular congestion. Bilateral airspace opacities likely representing interstitial edema. There are right larger than left pleural effusions with dependent consolidation. No pneumothorax is seen. The skeletal structures are osteopenic. Bony thorax is grossly intact. IMPRESSION: 1. Cardiomegaly with evidence of congestive failure. 2. Bilateral airspace opacities likely represent pulmonary edema. Correlate clinically for evidence of a superimposed infectious/inflammatory pneumonitis. Radiographic follow-up to resolution is recommended. 3. Right larger than left pleural effusions with dependent consolidation. ACT 112: Negative or not required by law. Electronically signed by: Dez Munoz M.D. 09/18/2023 3:30 PM Supervising Physician Co-Signing Physician Notes Attending addendum: I have physically seen this patient, have supervised the medical residents activities, and agree with the H&P unless as otherwise noted. Assessment and Plan: Acute respiratory failure with hypoxia- Looks to be a combination of pneumonia and acute on chronic HFpEF Chest x-ray gives the appearance of close to an ARDS picture Acute on chronic HFpEF/elevated troponin/hypertension- The patient will be admitted to telemetry for serial cardiac enzymes, serial EKG's, cardiac rhythm monitoring and a 2-D echocardiogram with Dopplers. Most recent echo on 02/13 with EF 60-65%, and mild to moderate aortic stenosis Given Lasix 40 mg IV in ED, and after placement of Danielson, is having a good diuresis Continue Lasix 40 mg IV every morning, and may require additional dose this evening We will add 1 inch Nitropaste anterior chest wall every 6 hours to help with fluid overload and elevated troponin Follow diuresis closely, to prevent excessive decrease in preload in the setting of mild to moderate aortic stenosis Troponin initially 7843.0, with follow-up 26,660.4. Add Nitropaste as noted, and start heparin Drip low-dose without bolus per protocol Continue clonidine, metoprolol succinate Consult cardiology Pneumonia- Cefepime 2 g IV every 12 hours MRSA swab. Placed on Zyvox 600 mg IV every 12 hours if MRSA positive, avoiding vancomycin due to CKD CKD stage V- Creatinine in usual range of 5.32 Follow serially while diuresing with IV Lasix Hold oral Lasix Consult nephrology Diabetes mellitus- Insulin glargine with SSI as noted Remaining orders and notations as noted Resident Activity Tracking Resident Involvement: Resident Care Provided Care Provided: Adult Hospital Medicine (3) Closed head injury Encounter type: initial encounter Qualified Code(s): S09.90XA - Unspecified injury of head, initial encounter (7) Anemia Anemia type: due to chronic kidney disease Chronic kidney disease stage: stage 3 (moderate) Qualified Code(s): N18.3 - Chronic kidney disease, stage 3 (moderate); D63.1 - Anemia in chronic kidney disease (11) Hypothyroidism Hypothyroidism type: unspecified Qualified Code(s): E03.9 - Hypothyroidism, unspecified (12) Hypertension Hypertension type: secondary to other renal disorders Qualified Code(s): I15.1 - Hypertension secondary to other renal disorders; N28.89 - Other specified disorders of kidney and ureter
[2023-09-18] MEDS ORDERED: CEFEPIME 1,000 MG in SYRINGE 0 ML IV SCH (17:00)
[2023-09-18] MEDS ORDERED: CEFEPIME 2,000 MG in SYRINGE 0 ML IV ONE ×2 (17:15→19:45)
[2023-09-18 17:16] LABS: Appearance Urine Clear (Clear); Bacteria Urine Automated Negative (Negative); Bilirubin Urine Negative (Negative); Blood Urine 2+ (Negative); Cast Urine Automated 0 /lpf (0-5); Color Urine Yellow; Glucose Urine UA 3+ (Negative); Ketones Urine Trace (Negative); Leukocyte Esterase Urine Negative (Negative); Nitrite Urine Negative (Negative); Protein Urine 2+ (Negative); RBC Urine Automated 0-4 /hpf (0-4); Specific Gravity Urine 1.014 (1.000-1.030); Urobilinogen Urine Negative (Negative); pH Urine 5.5 (4.5-7.5)
[2023-09-18 17:24] LABS: Adenovirus PCR Not Detected (NotDetected); Bordetella parapertussis PCR Not Detected (NotDetected); Bordetella pertussis PCR Not Detected (NotDetected); Chlamydia pneumoniae PCR Not Detected (NotDetected); Coronavirus 229E PCR Not Detected (NotDetected); Coronavirus CoV-2 (COVID19)PCR Not Detected (NotDetected); Coronavirus HKU1 PCR Not Detected (NotDetected); Coronavirus NL63 PCR Not Detected (NotDetected); Coronavirus OC43PCR Not Detected (NotDetected); Human Metapneumovirus PCR Not Detected (NotDetected); Influenza A PCR Not Detected (NotDetected); Influenza B PCR Not Detected (NotDetected); Mycoplasma pneumoniae PCR Not Detected (NotDetected); Parainfluenza Virus 1 PCR Not Detected (NotDetected); Parainfluenza Virus 2 PCR Not Detected (NotDetected); Parainfluenza Virus 3 PCR Not Detected (NotDetected); Parainfluenza Virus 4 PCR Not Detected (NotDetected); Respiratory Syncytial VirusPCR Not Detected (NotDetected); Rhinovirus/Enterovirus PCR Not Detected (NotDetected)
[2023-09-18 17:34] LABS: Allen Test Pos (Pos); Base Excess ABG -8.9 mEq/L (-9-1.8); HCO3 ABG 18 mmol/L (19-24); Oxygen Saturation ABG 94.7 % (90-95); PCO2 ABG 44 mmHg (35-46); PO2 ABG 82 mmHg (80-95); pH ABG 7.23 (7.35-7.45)
[2023-09-18] MEDS ORDERED: Heparin IV Adult Wt-Based Low-Dose *NO* INITIAL Bolus Protocol IV SCH (18:02)
[2023-09-18] MEDS ORDERED: HEPARIN SODIUM/DEXTROSE 25,000 UNITS/500 ML BAG IV SCH (18:15)
[2023-09-18 18:19] LABS: Partial Thromboplastin Ratio 1.1; Partial Thromboplastin Time 30 Seconds (21-31)
[2023-09-18] MEDS: NITROGLYCERIN 2% OINTMENT 30GM TUBE EXT SCH (18:19)
[2023-09-18] MEDS ORDERED: GLUCOSE 40% GEL 15 GM TUBE PO PRN (19:17)
[2023-09-18] MEDS ORDERED: ONDANSETRON 4 MG OD TAB PO PRN (19:17)
[2023-09-18] MEDS ORDERED: POLYETHYLENE (MIRALAX) 17 GM PACK PO PRN (19:17)
[2023-09-18] MEDS ORDERED: ALBUT/IPRATROP 3MG/0.5MG NEB 3 ML VIAL NEB PRN (19:17)
[2023-09-18] MEDS ORDERED: GLUCOSE 10 TAB/TUBE PO PRN (19:17)
[2023-09-18] MEDS ORDERED: DEXTROSE 50% 50 ML SYRINGE IV PRN (19:17)
[2023-09-18] MEDS ORDERED: ACETAMINOPHEN 325 MG TAB PO PRN (19:17)
[2023-09-18] MEDS ORDERED: CARBOHYDRATES FOR HYPOGLYCEMIA PO PRN (19:17)
[2023-09-18] MEDS ORDERED: GLUCAGON FOR INJ 1 MG VIAL SQ PRN (19:17)
--- NOTE | 2023-09-18 19:54 | Billing Data ---
Date of Service September 18, 2023 Coding Level of Care Code 27721 INT INP/OBS CARE
[2023-09-18] MEDS: INSULIN ASPART PER UNIT CHARGE SC SCH (21:34)
[2023-09-18] MEDS: LANTUS PER UNIT CHARGE SC SCH (21:35)
[2023-09-18] MEDS: METOPROLOL SUCC 25MG EXT REL TAB PO SCH (21:37)
[2023-09-18] MEDS: cloNIDine HCL 0.1 MG TAB PO SCH (21:38)
[2023-09-18] MEDS: EZETIMIBE 10 MG TAB PO SCH (21:39)
[2023-09-18] MEDS: SIMVASTATIN 40 MG TAB PO SCH (21:39)
[2023-09-18] MEDS: FERROUS SULFATE 325 MG TAB PO SCH (21:40)
[2023-09-18] MEDS: FLUTICASONE PROPIONATE NA SPR 16 GM BTL SCH (21:59)
[2023-09-19] MEDS: NITROGLYCERIN 2% OINTMENT 30GM TUBE EXT SCH ×5 (00:10→23:50)
[2023-09-19 01:53] LABS: ANTI-Xa, UFH(UnfractionatedHep < 0.10 IU/ml (0.3-0.7)
[2023-09-19] MEDS ORDERED: HEPARIN IV BOLUS 3,000 UNITS in SYRINGE 0 ML IV ONE (04:15)
[2023-09-19] MEDS ORDERED: HEPARIN IV BOLUS 4,500 UNITS in SYRINGE 0 ML IV STA (04:30)
[2023-09-19] MEDS ORDERED: HEPARIN IV BOLUS 4,500 UNITS in SYRINGE 0 ML IV ONE (04:45)
[2023-09-19] MEDS: ACETAMINOPHEN 1,000 MG/100 ML VIAL IV PRN (04:47)
[2023-09-19] MEDS: LEVOTHYROXINE SODIUM 50 MCG TABLET PO SCH ×2 (06:36→06:38)
[2023-09-19 06:46] LABS: Base Excess VBG -7.4 mEq/L; HCO3 VBG 18 mmol/L; Oxygen Saturation VBG 83.7 %; PCO2 VBG 36 mmHg (38-50); PO2 VBG 52 mmHg; pH VBG 7.31 (7.36-7.41)
[2023-09-19 06:53] LABS: Basophils # (auto) 0.01 K/uL (0.00-0.20); Basophils % (auto) 0.1 %; Eosinophils # (auto) 0.01 K/uL (0.00-0.50); Eosinophils % (auto) 0.1 %; Hematocrit (blood only) 31.8 % (42.0-52.0); Hemoglobin 9.7 g/dl (14.0-18.0); Immature Granulocytes # (auto) 0.04 K/uL (0.01-0.20); Immature Granulocytes % (auto) 0.5 %; Lymphocytes # (auto) 0.58 K/uL (1.20-3.40); Lymphocytes % (auto) 7.7 %; Mean Corpuscular Hemoglobin 29.3 pg (25.0-34.0); Mean Corpuscular Hgb Conc 30.5 g/dL (32.0-36.0); Mean Corpuscular Volume 96.1 fL (80.0-100.0); Mean Platelet Volume 10.4 fL (9.4-12.4); Monocytes # (auto) 0.76 K/uL (0.11-0.59); Neutrophils # (auto) 6.18 K/uL (1.40-6.50); Neutrophils % (auto) 81.6 %; Platelet Count 242 K/uL (130-400); RDW Coefficient of Variation 16.1 % (11.5-14.5); Red Blood Count 3.31 M/uL (4.70-6.10); White Blood Count 7.58 K/ul (4.8-10.8)
[2023-09-19 07:20] LABS: Albumin Globulin Ratio 1.3 (0.9-2); Albumin Level 3.4 gm/dl (3.4-5.0); BUN Creatinine Ratio 14.6 (10-20); Bilirubin,Total 0.5 mg/dl (0.2-1.0); Calcium 8.9 mg/dl (8.6-10.3); Creatinine Clr Calc Pharmacy 13.5 ml/min; Est GFR (African American) 11.6 ml/min; Globulin 2.6 gm/dl (2.5-4.0); Magnesium 1.9 mg/dl (1.7-2.4); Phosphorus 4.4 mg/dl (2.5-4.9); Potassium 4.4 mmol/L (3.5-5.1)
[2023-09-19] MEDS: INSULIN ASPART PER UNIT CHARGE SC SCH ×4 (07:56→21:30)
[2023-09-19] MEDS: FLUTICASONE PROPIONATE NA SPR 16 GM BTL SCH ×2 (07:57→20:40)
[2023-09-19] MEDS: FINASTERIDE 5 MG TAB PO SCH (07:57)
[2023-09-19] MEDS: PANTOprazole 40 MG TAB PO SCH (07:57)
[2023-09-19] MEDS: TAMSULOSIN HCL 0.4 MG CAP PO SCH (07:57)
[2023-09-19] MEDS: FERROUS SULFATE 325 MG TAB PO SCH ×2 (07:58→08:02)
[2023-09-19] MEDS ORDERED: FUROSEMIDE 40 MG/4 ML VIAL IV SCH (09:00)
[2023-09-19] MEDS ORDERED: CEFEPIME 1,000 MG in SYRINGE 0 ML IV SCH (09:00)
[2023-09-19] MEDS ORDERED: metOLazone 5 MG TABLET PO SCH (09:00)
[2023-09-19] MEDS: metOLazone 5 MG TABLET PO SCH (09:18)
[2023-09-19] MEDS: FUROSEMIDE 40 MG/4 ML VIAL IV SCH ×2 (09:19→16:47)
--- NOTE | 2023-09-19 09:59 | XCELERA ---
[id number] \\[id number]
[2023-09-19] MEDS ORDERED: bisacodyL 10 MG SUPP PR STA (11:40)
[2023-09-19 12:05] LABS: ANTI-Xa, UFH(UnfractionatedHep 0.38 IU/ml (0.3-0.7)
[2023-09-19 12:07] LABS: Thyroid Stimulating Hormone 1.442 uIu/ml (0.300-4.500)
--- NOTE | 2023-09-19 12:08 | Cardiology Consultation ---
Date of Consultation September 19, 2023 Assessment & Plan (1) Shortness of breath: (2) Elevated troponin: (3) Acute pulmonary edema: (4) CKD (chronic kidney disease), stage V: (5) Acute [place]: Plan Mr. Gaviria is an 83 y/o male with the above mentioned PMHx and findings that was admitted after sustaining a mechanical fall in his home. VS had remained stable and his O2 sat was 93-94 with Oxymask at 5 lpm. He is feeling better today and has no new concerns. In the ED, he was found to have elevated troponins that increased from ~7800 to ~78581 to ~37135. Currently decreasing (most recent ~89876). He was asymptomatic throughout this whole ordeal save for his SOB, but TTE did show EF of 45-50% with akinesis of the anterolateral apex with moderate hypokinesis of the mid anterior wall, which when combined with the rise in troponins may indicate a recent NSTEMI. Pulmonary edema and effusions also indicate possible acute on chronic CHF, for which he is being given Furosemide 80mg with successful diuresis (negative balance). Catheterization indicated but given patient's current renal function, dialysis would possibly be required soon after the procedure. Discussed with Dr. Reis (nephrology) who was in agreement. Patient made aware of lab and imaging findings and the indication for catheterization, as well as the risk of renal injury consequent of the contrast and need for dialysis within the next few days. He understood what was discussed and agreed to undergo catheterization. Supervising Physician Co-Signing Physician Notes I saw and examined the patient with Dr. Wallace and agree with the documentation above. Briefly, the patient is an 83-year-old gentleman with suspected coronary disease who suffered a fall at home. This was believed to be mechanical. He did not endorse symptoms of chest pain leading up to the event. He had no chest pain subsequent to the event. Unfortunately, he was too weak to get up from the ground and spent several hours on his basement floor. He was eventually rescued by a neighbor and brought to the hospital. Initial cardiac biomarkers were noted to be elevated but they charlie significantly afterwards. The patient was was started on heparin infusion. He had evidence of pulmonary vascular congestion and was started initially on BiPAP. Diuresis was begun and his oxygen requirement improved. Based on his echocardiogram, risk factors and elevated biomarkers he was advised to undergo coronary angiography which demonstrated distal occlusion of the LAD, chronic total occlusion of the circumflex and ectatic but patent right coronary artery. 1. NSTEMI: He will be treated medically at this point. Artery on beta- blockade. Not a good candidate for Tyler inhibition until his renal function is sorted out. If a decision is made to start dialysis than we can initiate Tyler/ARB or Entresto. We will continue heparin for another 24 hours and be placed on dual anti-platelet therapy. 2. Decompensated left ventricular systolic failure: He has responded well to diuretics so far. He seems to be having a reasonable diuresis. Will continue diuretics monitoring his renal function closely. 3. Hypertension: Blood pressure improved over the course of the day. , metoprolol and clonidine. Will see what his renal function does. If dialysis is initiated will need to start Tyler inhibition. Hydralazine would be an intermediate intervention. 4. Valvular heart disease: Mild aortic regurgitation and mitral regurgitation. Afbn-fi-kexldeuk mitral stenosis. 5. Mild aortic root dilation. Will continue beta-blockade good blood pressure control 6. End-stage renal disease: He was preparing for dialysis in several weeks. He was appraised of possibility decline in renal function given the contrast administration today. We used little contrast, but his baseline function is quite poor. Will monitor this over the next few days. History of Present Illness Reason for Consultation: CHF, elevated troponins Requesting Physician: Gregory Marc MD Attending Physician: Gregory Marc MD History of Present Illness Mr. Gaviria is an 83 y/o male with PMHx of HFpEF, HTN, HLD, DM-II, and CKD-V in preparation to begin dialysis who was admitted after sustaining a mechanical fall in his garage yesterday when he missed a step and tripped. He stayed on the ground for 3-4 hours and was calling for help and his neighbor called an ambulance. While on the ground he was starting to have worsening SOB, and in the ambulance, he was told he was having respiratory issues. He denies having SOB prior to his fall and was feeling in his usual state of health. He reports that he has noticed some lower extremity swelling prior to his fall, and also states he has had 3 months of chest tightness after eating that is not directly related to a specific food or quantity. He does not exercise much, but he does not feel excessive SOB from performing his ALDs. He denies having chest pain, lightheadedness, dizziness, weakness, fevers, chills, malaise, headaches, vision changes, or any other symptom. Today he was evaluated and found to be alone, AAOx3, comfortable, and in no acute distress. His SOB has improved compared to yesterday. Denies having chest pain, N/V/D, diaphoresis, weakness, or any other symptom. Allergies Allergy/AdvReac Type Severity Reaction Status Date / Time latex Allergy Mild SKIN Verified 09/18/23 19:06 IRRITATION Home Medications Medication Instructions Recorded Confirmed Type flash glucose scanning reader 07/19/20 09/10/23 History (FreeStyle Ritchie 14 Day [place]) flash glucose sensor (FreeStyle 07/19/20 09/10/23 History Ritchie 14 Day Sensor kit) nystatin 100,000 unit/gram topical 1 applic topical BID PRN Itching 06/13/22 09/14/23 Rx cream #30 grams simvastatin 40 mg tablet 40 mg PO HS #90 tabs 11/03/22 09/14/23 Rx furosemide 40 mg tablet 40 mg PO QAM 11/29/22 09/14/23 History pantoprazole 40 mg tablet,delayed 40 mg PO QAM 11/29/22 09/14/23 History release insulin regular human 100 unit/mL See Rx Instructions subcut TIDM 12/04/22 09/14/23 Rx injection solution (Novolin R #40 mL Regular U-100 Insulin) metoprolol succinate 50 mg 75 mg (1.5 x 50 mg) PO HS #135 tabs 01/09/23 09/14/23 Rx tablet,extended release 24 hr insulin syringe,safetyneedle 0.3 #700 ea 01/15/23 09/10/23 Rx mL 31 gauge x 15/64" (BD SafetyGlide Insulin Syringe) clonidine HCl 0.1 mg tablet 0.1 mg PO HS #90 tabs 03/16/23 09/14/23 Rx ezetimibe 10 mg tablet (Zetia) 10 mg PO QPM 04/13/23 09/14/23 History insulin glargine 100 unit/mL (3 27 unit subcut QPM 04/13/23 09/14/23 History mL) subcutaneous pen (Basaglar KwikPen U-100 Insulin) levothyroxine 50 mcg tablet 50 mcg PO QAM 04/13/23 09/14/23 History (Synthroid) sildenafil 100 mg tablet (Viagra) 100 mg PO ONCE PRN sexual activity 04/13/23 09/14/23 History triamcinolone acetonide 0.1 % 1 applic topical BID PRN Itching 04/13/23 09/14/23 History topical cream (Triderm) pen needle, diabetic 31 gauge x #200 ea 04/27/23 09/10/23 Rx 3/16" (BD Ultra-Fine Mini Pen Needle) ferrous sulfate 140 mg (45 mg 45 mg PO BID 05/23/23 09/14/23 History iron) tablet,extended release tramadol 50 mg tablet 50 mg PO Q8H PRN pain #10 tabs 07/03/23 09/14/23 Rx fluticasone propionate 50 1 spray intranasal BID #3 BTLS 07/16/23 09/14/23 Rx mcg/actuation nasal spray,suspension (Flonase Allergy Relief) hepatitis B vaccine 20 mcg/0.5 0.5 ml IM Q30D 2 doses #2.5 mL 07/26/23 09/14/23 Rx mL-adjuvant CpG 1018 (PF) IM syringe (Heplisav-B (PF)) alprazolam 0.5 mg tablet 0.5 mg PO DAILY PRN anxiety #20 08/08/23 09/14/23 Rx tabs iron sucrose 200 mg iron/10 mL 200 mg (10 mL) IV DAILY 5 doses 08/29/23 09/14/23 Rx intravenous solution (Venofer) tramadol 50 mg tablet 50 mg PO BID PRN pain 30 days #60 09/04/23 09/14/23 Rx tabs finasteride 5 mg tablet (Proscar) 5 mg PO DAILY #90 tabs 09/06/23 09/14/23 Rx tamsulosin 0.4 mg capsule 0.8 mg (2 x 0.4 mg) PO DAILY #180 09/06/23 09/14/23 Rx caps darbepoetin jude in polysorbat 60 60 mcg subcut .COMPLEX #4 mL 09/12/23 09/14/23 Rx mcg/mL in polysorbate injection (Aranesp) hepatitis B vaccine 20 mcg/0.5 0.5 ml IM Q30D 2 doses #2.5 mL 09/12/23 09/14/23 Rx mL-adjuvant CpG 1018 (PF) IM syringe (Heplisav-B (PF)) Patient History Medical History (Updated 09/19/23 @ 15:30 by Gregory Marc MD) Chronic kidney disease BPH (benign prostatic hyperplasia) Arteriovenous fistula Left AVF creation 11/2022- now has occlusion- reason for upcoming procedure History of kidney stones Glaucoma HX OF- S/P TREATMENT- NO CURRENT ISSUES 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 CORDOVA CKD V Controlled type 2 diabetes mellitus with kidney complication, with long-term current use of insulin Hgb A1C 09/2022 was 7.7 Coronary arteriosclerosis S/p angioplasty 1990 (no stent or hx of CABG) Cyst of kidney, acquired Dyslipidemia Hypertension FOLLOWED BY DR. RAYO Hypothyroidism Obesity, Class II, BMI 35-39.9 Surgical History History of total right knee replacement H/O eye surgery RT/LEFT EYE FOR GLAUCOMA History of cataract surgery LEFT/RT History of total left knee replacement (TKR) X 2 History of lithotripsy a couple times History of tonsillectomy History of angioplasty at the age of 51 History of surgery scrotal hernia repair History of exploratory laparotomy History of umbilical hernia repair History of colonoscopy History of ear surgery Tympanic membrane repair--per pt a couple times Family History Father Cancer of kidney Hypertension Cardiac disorder Family/Other Cancer of kidney Bone cancer Mother Bone cancer Cardiac disorder Hypertension Other No family history of adverse response to anesthesia No family history of bleeding disorder Social History Smoking Status: Never smoker Second Hand Exposure: No; Do You Dip or Chew Tobacco: No; Hx Alcohol Use: No Hx Substance Use: No Preferred Language: Vietnamese Communication Ability: Effective Visual Impairment: Limited Hearing Ability: Normal Napper Grinder Required: No Beliefs That Will Affect Care: None marital status: / Current Living Situation: Alone current occupational status: employed 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 Physical Exam Physical Exam: General: Alert. Oriented to person, time, and place. Afebrile. No acute distress. Danielson catheter draining clear urine free of blood or sediment in the line or collecting bag. Cardiac: Regular rate and rhythm, no murmurs/rubs/gallops. Respiratory: Rales in bilateral lung bases. No wheezing. No increased work of breathing. Symmetrical chest rise. No respiratory distress. Abdomen: Soft, nontender, nondistended. Bowel sounds present. Lower Extremities: No lower extremity edema or swelling. Results & Data Vital Signs (Past 12 Hours) Vital Signs Temp Pulse Pulse Resp BP Pulse Ox O2 Del Method 09/19/23 10:36 36.4 C L 85 18 135/82 95 Oxymask 09/19/23 09:00 Oxymask 09/19/23 08:00 73 09/19/23 07:04 36.2 C L 82 19 133/75 100 Oxymask 09/19/23 03:58 77 21 98 09/19/23 03:10 36.7 C 78 18 131/83 98 BiPAP O2 Flow Rate FiO2 09/19/23 10:36 09/19/23 09:00 10 09/19/23 08:00 09/19/23 07:04 11 09/19/23 03:58 40 09/19/23 03:10 Laboratory Results Abnormal Lab Results 09/18/23 09/18/23 09/18/23 14:45 16:31 16:43 WBC RBC Hgb Hct MCV MCH MCHC RDW Std Deviation RDW Coeff of Aysha Plt Count MPV Immature Gran % (Auto) Neut % (Auto) Lymph % (Auto) Anson % (Auto) Eos % (Auto) Baso % (Auto) Neut # (Auto) Lymph # (Auto) Anson # (Auto) Eos # (Auto) Baso # (Auto) Immature Gran # (Auto) APTT 30 PTT Ratio 1.1 Heparin Anti-Xa, Unfract ABG pH ABG pCO2 ABG pO2 ABG HCO3 ABG O2 Saturation ABG Base Excess Aniket Test VBG pH VBG pCO2 VBG pO2 VBG HCO3 VBG O2 Saturation VBG Base Excess Oxygen Given Sodium Potassium Chloride Carbon Dioxide Anion Gap BUN Creatinine Est Cr Clr Drug Dosing Est GFR ( Amer) Est GFR (Non-Af Amer) BUN/Creatinine Ratio Glucose POC Glucose Lactate 1.8 Calcium Phosphorus Magnesium Total Bilirubin AST ALT Alkaline Phosphatase Total Creatine Kinase Troponin I High Sens 30408.4 H* D Total Protein Albumin Globulin Albumin/Globulin Ratio TSH Free T4 Free T3 Urine Color Urine Appearance Urine pH Ur Specific [place] Urine Protein Urine Glucose (UA) Urine Ketones Urine Blood Urine Nitrite Urine Bilirubin Urine Urobilinogen Ur Leukocyte Esterase Urine WBC (Auto) Urine RBC (Auto) U Hyaline Cast (Auto) U Epithel Cells (Auto) Urine Bacteria (Auto) Nasal Screen MRSA (PCR) Negative Adenovirus (PCR) B. pertussis DNA (PCR) B.parapertussis DNA PCR C. pneumoniae DNA (PCR) Coronavirus OC43 (PCR) Coronavirus HKU1 (PCR) Coronavirus 229E (PCR) SARS-CoV-2 (PCR) Coronavirus NL63 (PCR) Human Metapneumovir PCR Influenza Type A (PCR) Influenza Type B (PCR) M. pneumoniae (PCR) Parainfluenza 1 (PCR) Parainfluenza 2 (PCR) Parainfluenza 3 (PCR) Parainfluenza 4 (PCR) RSV (PCR) Entero/Rhino (PCR) 09/18/23 09/18/23 09/18/23 16:50 17:25 20:03 WBC RBC Hgb Hct MCV MCH MCHC RDW Std Deviation RDW Coeff of Aysha Plt Count MPV Immature Gran % (Auto) Neut % (Auto) Lymph % (Auto) Anson % (Auto) Eos % (Auto) Baso % (Auto) Neut # (Auto) Lymph # (Auto) Anson # (Auto) Eos # (Auto) Baso # (Auto) Immature Gran # (Auto) APTT PTT Ratio Heparin Anti-Xa, Unfract ABG pH 7.23 L ABG pCO2 44 ABG pO2 82 ABG HCO3 18 L ABG O2 Saturation 94.7 ABG Base Excess -8.9 Aniket Test Pos VBG pH VBG pCO2 VBG pO2 VBG HCO3 VBG O2 Saturation VBG Base Excess Oxygen Given 60% Sodium Potassium Chloride Carbon Dioxide Anion Gap BUN Creatinine Est Cr Clr Drug Dosing Est GFR ( Amer) Est GFR (Non-Af Amer) BUN/Creatinine Ratio Glucose POC Glucose 299 H Lactate Calcium Phosphorus Magnesium Total Bilirubin AST ALT Alkaline Phosphatase Total Creatine Kinase Troponin I High Sens Total Protein Albumin Globulin Albumin/Globulin Ratio TSH Free T4 Free T3 Urine Color Yellow Urine Appearance Clear Urine pH 5.5 Ur Specific [place] 1.014 Urine Protein 2+ H Urine Glucose (UA) 3+ H Urine Ketones Trace H Urine Blood 2+ H Urine Nitrite Negative Urine Bilirubin Negative Urine Urobilinogen Negative Ur Leukocyte Esterase Negative Urine WBC (Auto) 1-5 Urine RBC (Auto) 0-4 U Hyaline Cast (Auto) 0 U Epithel Cells (Auto) 5-10 H Urine Bacteria (Auto) Negative Nasal Screen MRSA (PCR) Adenovirus (PCR) B. pertussis DNA (PCR) B.parapertussis DNA PCR C. pneumoniae DNA (PCR) Coronavirus OC43 (PCR) Coronavirus HKU1 (PCR) Coronavirus 229E (PCR) SARS-CoV-2 (PCR) Coronavirus NL63 (PCR) Human Metapneumovir PCR Influenza Type A (PCR) Influenza Type B (PCR) M. pneumoniae (PCR) Parainfluenza 1 (PCR) Parainfluenza 2 (PCR) Parainfluenza 3 (PCR) Parainfluenza 4 (PCR) RSV (PCR) Entero/Rhino (PCR) 09/18/23 09/18/23 09/19/23 22:38 Unknown 01:18 WBC RBC Hgb Hct MCV MCH MCHC RDW Std Deviation RDW Coeff of Aysha Plt Count MPV Immature Gran % (Auto) Neut % (Auto) Lymph % (Auto) Anson % (Auto) Eos % (Auto) Baso % (Auto) Neut # (Auto) Lymph # (Auto) Anson # (Auto) Eos # (Auto) Baso # (Auto) Immature Gran # (Auto) APTT PTT Ratio Heparin Anti-Xa, Unfract < 0.10 L ABG pH ABG pCO2 ABG pO2 ABG HCO3 ABG O2 Saturation ABG Base Excess Aniket Test VBG pH VBG pCO2 VBG pO2 VBG HCO3 VBG O2 Saturation VBG Base Excess Oxygen Given Sodium Potassium Chloride Carbon Dioxide Anion Gap BUN Creatinine Est Cr Clr Drug Dosing Est GFR ( Amer) Est GFR (Non-Af Amer) BUN/Creatinine Ratio Glucose POC Glucose Lactate Calcium Phosphorus Magnesium Total Bilirubin AST ALT Alkaline Phosphatase Total Creatine Kinase Troponin I High Sens 85844.6 H* D Total Protein Albumin Globulin Albumin/Globulin Ratio TSH Free T4 Free T3 Urine Color Urine Appearance Urine pH Ur Specific [place] Urine Protein Urine Glucose (UA) Urine Ketones Urine Blood Urine Nitrite Urine Bilirubin Urine Urobilinogen Ur Leukocyte Esterase Urine WBC (Auto) Urine RBC (Auto) U Hyaline Cast (Auto) U Epithel Cells (Auto) Urine Bacteria (Auto) Nasal Screen MRSA (PCR) Adenovirus (PCR) Not Detected B. pertussis DNA (PCR) Not Detected B.parapertussis DNA PCR Not Detected C. pneumoniae DNA (PCR) Not Detected Coronavirus OC43 (PCR) Not Detected Coronavirus HKU1 (PCR) Not Detected Coronavirus 229E (PCR) Not Detected SARS-CoV-2 (PCR) Not Detected Coronavirus NL63 (PCR) Not Detected Human Metapneumovir PCR Not Detected Influenza Type A (PCR) Not Detected Influenza Type B (PCR) Not Detected M. pneumoniae (PCR) Not Detected Parainfluenza 1 (PCR) Not Detected Parainfluenza 2 (PCR) Not Detected Parainfluenza 3 (PCR) Not Detected Parainfluenza 4 (PCR) Not Detected RSV (PCR) Not Detected Entero/Rhino (PCR) Not Detected 09/19/23 09/19/23 09/19/23 06:35 07:00 11:03 WBC 7.58 RBC 3.31 L Hgb 9.7 L Hct 31.8 L MCV 96.1 MCH 29.3 MCHC 30.5 L RDW Std Deviation 57.0 H RDW Coeff of Aysha 16.1 H Plt Count 242 MPV 10.4 Immature Gran % (Auto) 0.5 Neut % (Auto) 81.6 Lymph % (Auto) 7.7 Anson % (Auto) 10.0 Eos % (Auto) 0.1 Baso % (Auto) 0.1 Neut # (Auto) 6.18 Lymph # (Auto) 0.58 L Anson # (Auto) 0.76 H Eos # (Auto) 0.01 Baso # (Auto) 0.01 Immature Gran # (Auto) 0.04 APTT PTT Ratio Heparin Anti-Xa, Unfract 0.38 ABG pH ABG pCO2 ABG pO2 ABG HCO3 ABG O2 Saturation ABG Base Excess Aniket Test VBG pH 7.31 L VBG pCO2 36 L VBG pO2 52 VBG HCO3 18 VBG O2 Saturation 83.7 VBG Base Excess -7.4 Oxygen Given Sodium 140 Potassium 4.4 Chloride 110 H Carbon Dioxide 19 L Anion Gap 11 BUN 73 H Creatinine 5.00 H* D Est Cr Clr Drug Dosing 13.5 Est GFR ( Amer) 11.6 Est GFR (Non-Af Amer) 10.0 BUN/Creatinine Ratio 14.6 Glucose 250 H POC Glucose 205 H Lactate Calcium 8.9 Phosphorus 4.4 Magnesium 1.9 Total Bilirubin 0.5 AST 118 H ALT 26 Alkaline Phosphatase 61 Total Creatine Kinase 672 H Troponin I High Sens 71549.5 H* D 01305.6 H* Total Protein 6.0 Albumin 3.4 Globulin 2.6 Albumin/Globulin Ratio 1.3 TSH 1.442 Free T4 0.85 Free T3 2.54 Urine Color Urine Appearance Urine pH Ur Specific [place] Urine Protein Urine Glucose (UA) Urine Ketones Urine Blood Urine Nitrite Urine Bilirubin Urine Urobilinogen Ur Leukocyte Esterase Urine WBC (Auto) Urine RBC (Auto) U Hyaline Cast (Auto) U Epithel Cells (Auto) Urine Bacteria (Auto) Nasal Screen MRSA (PCR) Adenovirus (PCR) B. pertussis DNA (PCR) B.parapertussis DNA PCR C. pneumoniae DNA (PCR) Coronavirus OC43 (PCR) Coronavirus HKU1 (PCR) Coronavirus 229E (PCR) SARS-CoV-2 (PCR) Coronavirus NL63 (PCR) Human Metapneumovir PCR Influenza Type A (PCR) Influenza Type B (PCR) M. pneumoniae (PCR) Parainfluenza 1 (PCR) Parainfluenza 2 (PCR) Parainfluenza 3 (PCR) Parainfluenza 4 (PCR) RSV (PCR) Entero/Rhino (PCR) 09/19/23 09/19/23 11:38 16:21 WBC RBC Hgb Hct MCV MCH MCHC RDW Std Deviation RDW Coeff of Aysha Plt Count MPV Immature Gran % (Auto) Neut % (Auto) Lymph % (Auto) Anson % (Auto) Eos % (Auto) Baso % (Auto) Neut # (Auto) Lymph # (Auto) Anson # (Auto) Eos # (Auto) Baso # (Auto) Immature Gran # (Auto) APTT PTT Ratio Heparin Anti-Xa, Unfract ABG pH ABG pCO2 ABG pO2 ABG HCO3 ABG O2 Saturation ABG Base Excess Aniket Test VBG pH VBG pCO2 VBG pO2 VBG HCO3 VBG O2 Saturation VBG Base Excess Oxygen Given Sodium Potassium Chloride Carbon Dioxide Anion Gap BUN Creatinine Est Cr Clr Drug Dosing Est GFR ( Amer) Est GFR (Non-Af Amer) BUN/Creatinine Ratio Glucose POC Glucose 175 H 168 H Lactate Calcium Phosphorus Magnesium Total Bilirubin AST ALT Alkaline Phosphatase Total Creatine Kinase Troponin I High Sens Total Protein Albumin Globulin Albumin/Globulin Ratio TSH Free T4 Free T3 Urine Color Urine Appearance Urine pH Ur Specific [place] Urine Protein Urine Glucose (UA) Urine Ketones Urine Blood Urine Nitrite Urine Bilirubin Urine Urobilinogen Ur Leukocyte Esterase Urine WBC (Auto) Urine RBC (Auto) U Hyaline Cast (Auto) U Epithel Cells (Auto) Urine Bacteria (Auto) Nasal Screen MRSA (PCR) Adenovirus (PCR) B. pertussis DNA (PCR) B.parapertussis DNA PCR C. pneumoniae DNA (PCR) Coronavirus OC43 (PCR) Coronavirus HKU1 (PCR) Coronavirus 229E (PCR) SARS-CoV-2 (PCR) Coronavirus NL63 (PCR) Human Metapneumovir PCR Influenza Type A (PCR) Influenza Type B (PCR) M. pneumoniae (PCR) Parainfluenza 1 (PCR) Parainfluenza 2 (PCR) Parainfluenza 3 (PCR) Parainfluenza 4 (PCR) RSV (PCR) Entero/Rhino (PCR) Diagnostic Findings Echocardiogram performed 09/19/2023: Mildly reduced LV systolic function with ejection fraction 45%. Stage II diastolic dysfunction. Akinesis of the anterolateral apex and hypokinesis of the mid anterior wall. Mild aortic regurgitation. Moderate mitral annular calcification. Mild mitral regurg itation. [id number] mitral stenosis. Elevated pulmonary pressures mild aortic root dilation Cardiac catheterization: Occlusion of the LAD in its midportion. Branch vessel disease involving the 1st diagonal. 70% proximal circumflex with 100% distal circumflex occlusion. Ectatic and dilated dominant right coronary artery without obstructive coronary disease PG Care Time/CCT Total # of Minutes Spent Total Time Spent with Patient: Total time spent is greater than 50% in coordination of care (as documented) at patient's floor/unit and/or counseling patient: Coding Level of Care Code 60871 INT INP/OBS CARE 3/75MIN Diagnoses Shortness of breath R06.02 Elevated troponin R79.89 Acute pulmonary edema J81.0 CKD (chronic kidney disease), stage V N18.5 Acute [place] I21.9 Resident Activity Tracking Resident Involvement: Resident Care Provided Care Provided: Adult Hospital Medicine
[2023-09-19 12:09] LABS: T4 Free Thyroxine 0.85 ng/dl (0.61-1.60)
--- NOTE | 2023-09-19 12:32 | Nephrology Consultation ---
Date of Consultation September 19, 2023 Assessment & Plan (1) CKD (chronic kidney disease), stage V: (2) Acute ME: (3) Acute pulmonary edema: (4) Elevated troponin: (5) Hypertension: (6) Anemia: Plan 83 y o M with stage 5 CKD, b/lc r around 5.5, not on HD, waiting AVF maturation, admitted with Acute ME with elevated troponin, wall motion abnormalities and CHF. Cr at baseline, decent UO. BP fair. BP stable. on 3 L NC O2. --agree with need for cardiac cath as pt is very high risk for CAD and symptoms and rising troponin as well as 2 D [place] is concerning. --discussed considerable risk for contrast induced nephropathy ( Risk for DANY >50 % and need for dialysis about 15%) and possible need for HD this hospitalization. IF HD needed, he will need temporary dialysis catheter as AVF is not ready and vascular surgeon not available until next week. Davin voiced understanding and agreeable to go ahead with cardiac cath. --Continue to monitor renal function, electrolyte and volume status. Okay to use diuretics as needed. -- Hold CATY at this time -- Dose medications for eGFR less than 10, left arm nephrology precaution. Thank you for allowing me to participate in your patient's care. It was a pleasure to see Mr. Gaviria. History of Present Illness Reason for Consultation: Stage 5 CKD, NSTEMI Attending Physician: Gregory Marc MD History of Present Illness Mr. Davin Gaviria is a 83 yo male with PMHx of Stage 5 CKD, HTN, HFpEF, DM2 admitted with NSTEMI. Nephrology consult was requested to evaluate risk assessment for JV with advanced CKD in need for cardiac cath. EMR records were reviewed in detail during visit. Davin presented yesterday with 3 days h/o ongoing shortness of breath and generalized weakness. No CP. He has been taking Lasix 40 mg/d at home, reports decent diuresis. In ER CXR showed pulmonary congestion. Initial troponin was elevated and serial troponin showed continued significant elevation of troponin. EKG with no acute ST-T changes. 2D echo this morning showed decreased LVEF, regional wall motion abnormality involving anterolateral wall and grade 2 diastolic dysfunction. Has known h/o CAD s/p angioplasty in 1990. He was started on heparin drip. Labs showed creatinine close to baseline, 5.0 with metabolic acidosis, normal potassium. Hemoglobin 9.8 this morning. Has stage V CKD in the setting of hypertension, diabetes, coronary artery disease, lately creatinine has been around 5.5 mg/dl. Never smoker, no f/h of CKD, ESKD. Was on calcitriol before which was stopped because of hypercalcemia. Recently started on Epogen 60,000 units every 2 weeks. Previously could not tolerate oral iron because of GI upset. Had left radiocephalic AV fistula in 2022 which failed and then had left brachiocephalic AV fistula placed in June. He is planning to do in center hemodialysis when needed. Has been off for AUDELIA inhibitor because repeated history of hyperkalemia. Has previous h/o nephrolithiasis and JV with obstructive uropathy from his BPH and nephrolithiasis. Kidney function relatively stable. Continues to have SOB but better on NC O2, no CP. Decent UO, net negative. Allergies Allergy/AdvReac Type Severity Reaction Status Date / Time latex Allergy Mild SKIN Verified 09/18/23 19:06 IRRITATION Home Medications Medication Instructions Recorded Confirmed Type flash glucose scanning reader 07/19/20 09/10/23 History (FreeStyle Ritchie 14 Day Tarkio) flash glucose sensor (FreeStyle 07/19/20 09/10/23 History Ritchie 14 Day Sensor kit) nystatin 100,000 unit/gram topical 1 applic topical BID PRN Itching 06/13/22 09/14/23 Rx cream #30 grams simvastatin 40 mg tablet 40 mg PO HS #90 tabs 11/03/22 09/14/23 Rx furosemide 40 mg tablet 40 mg PO QAM 11/29/22 09/14/23 History pantoprazole 40 mg tablet,delayed 40 mg PO QAM 11/29/22 09/14/23 History release insulin regular human 100 unit/mL See Rx Instructions subcut TIDM 12/04/22 09/14/23 Rx injection solution (Novolin R #40 mL Regular U-100 Insulin) metoprolol succinate 50 mg 75 mg (1.5 x 50 mg) PO HS #135 tabs 01/09/23 09/14/23 Rx tablet,extended release 24 hr insulin syringe,safetyneedle 0.3 #700 ea 01/15/23 09/10/23 Rx mL 31 gauge x 15/64" (BD SafetyGlide Insulin Syringe) clonidine HCl 0.1 mg tablet 0.1 mg PO HS #90 tabs 03/16/23 09/14/23 Rx ezetimibe 10 mg tablet (Zetia) 10 mg PO QPM 04/13/23 09/14/23 History insulin glargine 100 unit/mL (3 27 unit subcut QPM 04/13/23 09/14/23 History mL) subcutaneous pen (Basaglar KwikPen U-100 Insulin) levothyroxine 50 mcg tablet 50 mcg PO QAM 04/13/23 09/14/23 History (Synthroid) sildenafil 100 mg tablet (Viagra) 100 mg PO ONCE PRN sexual activity 04/13/23 09/14/23 History triamcinolone acetonide 0.1 % 1 applic topical BID PRN Itching 04/13/23 09/14/23 History topical cream (Triderm) pen needle, diabetic 31 gauge x #200 ea 04/27/23 09/10/23 Rx 3/16" (BD Ultra-Fine Mini Pen Needle) ferrous sulfate 140 mg (45 mg 45 mg PO BID 05/23/23 09/14/23 History iron) tablet,extended release tramadol 50 mg tablet 50 mg PO Q8H PRN pain #10 tabs 07/03/23 09/14/23 Rx fluticasone propionate 50 1 spray intranasal BID #3 BTLS 07/16/23 09/14/23 Rx mcg/actuation nasal spray,suspension (Flonase Allergy Relief) hepatitis B vaccine 20 mcg/0.5 0.5 ml IM Q30D 2 doses #2.5 mL 07/26/23 09/14/23 Rx mL-adjuvant CpG 1018 (PF) IM syringe (Heplisav-B (PF)) alprazolam 0.5 mg tablet 0.5 mg PO DAILY PRN anxiety #20 08/08/23 09/14/23 Rx tabs iron sucrose 200 mg iron/10 mL 200 mg (10 mL) IV DAILY 5 doses 08/29/23 09/14/23 Rx intravenous solution (Venofer) tramadol 50 mg tablet 50 mg PO BID PRN pain 30 days #60 09/04/23 09/14/23 Rx tabs finasteride 5 mg tablet (Proscar) 5 mg PO DAILY #90 tabs 09/06/23 09/14/23 Rx tamsulosin 0.4 mg capsule 0.8 mg (2 x 0.4 mg) PO DAILY #180 09/06/23 09/14/23 Rx caps darbepoetin jude in polysorbat 60 60 mcg subcut .COMPLEX #4 mL 09/12/23 09/14/23 Rx mcg/mL in polysorbate injection (Aranesp) hepatitis B vaccine 20 mcg/0.5 0.5 ml IM Q30D 2 doses #2.5 mL 09/12/23 09/14/23 Rx mL-adjuvant CpG 1018 (PF) IM syringe (Heplisav-B (PF)) Patient History Medical History (Updated 09/19/23 @ 11:54 by Corrina Wallace MD) Chronic kidney disease BPH (benign prostatic hyperplasia) Arteriovenous fistula Left AVF creation 11/2022- now has occlusion- reason for upcoming procedure History of kidney stones Glaucoma HX OF- S/P TREATMENT- NO CURRENT ISSUES 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 CORDOVA CKD V Controlled type 2 diabetes mellitus with kidney complication, with long-term current use of insulin Hgb A1C 09/2022 was 7.7 Coronary arteriosclerosis S/p angioplasty 1990 (no stent or hx of CABG) Cyst of kidney, acquired Dyslipidemia Hypertension FOLLOWED BY DR. RAYO Hypothyroidism Obesity, Class II, BMI 35-39.9 Surgical History History of total right knee replacement H/O eye surgery RT/LEFT EYE FOR GLAUCOMA History of cataract surgery LEFT/RT History of total left knee replacement (TKR) X 2 History of lithotripsy a couple times History of tonsillectomy History of angioplasty at the age of 51 History of surgery scrotal hernia repair History of exploratory laparotomy History of umbilical hernia repair History of colonoscopy History of ear surgery Tympanic membrane repair--per pt a couple times Family History Father Cancer of kidney Hypertension Cardiac disorder Family/Other Cancer of kidney Bone cancer Mother Bone cancer Cardiac disorder Hypertension Other No family history of adverse response to anesthesia No family history of bleeding disorder Social History (Reviewed 08/29/23 @ 15:22 by YOLANDA Hernandez Smoking Status: Never smoker Second Hand Exposure: No; Do You Dip or Chew Tobacco: No; Hx Alcohol Use: No Hx Substance Use: No Preferred Language: [place] Communication Ability: Effective Visual Impairment: Limited Hearing Ability: Normal Program Host Required: No Beliefs That Will Affect Care: None marital status: / Current Living Situation: Alone current occupational status: employed 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 How many Children do You have: 1 How many Children do You have Comment: Stepdaughter, 2 grandchildren Feels Safe at Home: Yes Diet: regular caffeine: Yes during the past year weight has: remained stable Dental Care, Regularly: Yes Physical Activity Frequency: 5-6 Times per Week Seatbelt Use: always Sunscreen Use: No Assistive Devices: Cane and Walker Review of Systems Review of Systems: All systems reviewed & are unremarkable except as noted in HPI & below Physical Exam Constitutional: WD/WN, vitals as above + acute distress and + ill appearing Eyes: + anicteric sclerae Neck: normal visual inspection Respiratory: + respiratory distress Auscultation: + crackles Cardiovascular: Rate/Rhythm: regular rate and regular rhythm Heart Sounds: normal S1 and normal S2 Extremities: + AV fistula (left BC AVF with bruit.); no edema Gastrointestinal (Abdomen): Inspection/Auscultation: abdomen normal to inspection Percussion/Palpation: abdomen soft; abdomen nontender Musculoskeletal: Extremities: extremities normal to inspection Neurologic: no focal motor deficits Psychiatric: Orientation: alert and oriented x 3 Affect: euthymic affect Results & Data Vital Signs (Past 12 Hours) Vital Signs Temp Pulse Pulse Resp BP Pulse Ox O2 Del Method 09/19/23 10:36 36.4 C L 85 18 135/82 95 Oxymask 09/19/23 09:00 Oxymask 09/19/23 08:00 73 09/19/23 07:04 36.2 C L 82 19 133/75 100 Oxymask 09/19/23 03:58 77 21 98 09/19/23 03:10 36.7 C 78 18 131/83 98 BiPAP O2 Flow Rate FiO2 09/19/23 10:36 09/19/23 09:00 10 09/19/23 08:00 09/19/23 07:04 11 09/19/23 03:58 40 09/19/23 03:10 PG Care Time/CCT Total # of Minutes Spent Total Time Spent with Patient: Total time spent is greater than 50% in coordination of care (as documented) at patient's floor/unit and/or counseling patient: Coding Level of Care Code 09959 IN/OBS CONSULT LVL 5,80M Diagnoses CKD (chronic kidney disease), stage V N18.5 Acute ME I21.9 Acute pulmonary edema J81.0 Elevated troponin R79.89 Hypertension secondary to other renal disorders I15.1; N28.89 Hypertension type: secondary to other renal disorders Anemia due to stage 3 chronic kidney disease N18.3; D63.1 Anemia type: due to chronic kidney disease Chronic kidney disease stage: stage 3 (moderate) (5) Hypertension Hypertension type: secondary to other renal disorders Qualified Code(s): I15.1 - Hypertension secondary to other renal disorders; N28.89 - Other specified disorders of kidney and ureter (6) Anemia Anemia type: due to chronic kidney disease Chronic kidney disease stage: stage 3 (moderate) Qualified Code(s): N18.3 - Chronic kidney disease, stage 3 (moderate); D63.1 - Anemia in chronic kidney disease
[2023-09-19] MEDS ORDERED: niCARdipine HCL INJ 2.5 MG/ML 10 ML AMP ONE (13:05)
[2023-09-19] MEDS ORDERED: MIDAZOLAM HCL 1 MG/ML 2ML VIAL ONE (13:05)
[2023-09-19] MEDS ORDERED: HEPARIN (PORCINE) 1000 UNIT/ML 10 ML (CATH LAB USE ONLY) ONE (13:05)
[2023-09-19] MEDS ORDERED: fentaNYL citrate PF 100 MCG/2 ML VIAL ONE (13:05)
[2023-09-19] MEDS ORDERED: NITROGLYCERIN/D5W 100MCG/ML 20ML SYR ONE (13:06)
--- NOTE | 2023-09-19 13:15 | Pre Anesthesia Assessment ---
Date of Service September 19, 2023 Pre Sedation Assessment Vital Signs Temp Pulse Pulse Resp BP BP Pulse Ox 09/19/23 13:03 88 18 127/72 96 09/19/23 10:36 36.4 C L 85 18 135/82 95 09/19/23 09:00 09/19/23 08:00 73 09/19/23 07:04 36.2 C L 82 19 133/75 100 09/19/23 03:58 77 21 98 09/19/23 03:10 36.7 C 78 18 131/83 98 09/18/23 23:30 09/18/23 23:18 36.9 C 95 H 18 115/73 92 09/18/23 22:58 79 19 97 09/18/23 22:05 94 H 09/18/23 19:10 95 H 09/18/23 19:10 09/18/23 19:10 36.6 C 95 H 18 169/106 H 92 09/18/23 19:06 25 H 93 09/18/23 17:30 87 25 H 130/91 94 09/18/23 17:03 91 H 25 H 145/95 H 93 09/18/23 15:12 94 H 09/18/23 14:43 94 H 24 94 09/18/23 14:31 36.4 C L 94 H 22 148/79 H 90 O2 Del Method O2 Flow Rate FiO2 09/19/23 13:03 Nasal Cannula 3 09/19/23 10:36 Oxymask 09/19/23 09:00 Oxymask 10 09/19/23 08:00 09/19/23 07:04 Oxymask 11 09/19/23 03:58 40 09/19/23 03:10 BiPAP 09/18/23 23:30 BiPAP 09/18/23 23:18 BiPAP 09/18/23 22:58 40 09/18/23 22:05 09/18/23 19:10 09/18/23 19:10 BiPAP 09/18/23 19:10 BiPAP 09/18/23 19:06 50 09/18/23 17:30 CPAP 09/18/23 17:03 BiPAP 09/18/23 15:12 09/18/23 14:43 60 09/18/23 14:31 Non-rebreather 15 Cardiovascular + regular rate and + regular rhythm Respiratory + respiratory effort normal Pre-Sedation Airway Assessment Smoking Status: Never smoker Hx Sleep Apnea: No Hx Difficult Intubation: No Short, Thick Neck: No Thyromental Distance: > or= 3.5 Finger Breadths Oral Cavity: + WNL Mallampati Class: III ASA: ASA3 NPO Status Date of Last Intake of Fluids: 09/18/23 Date of Last Intake of Solid Food: 09/17/23 Procedure Planning Contraindications for Sedation: none Current Medications Reviewed: Yes Notes The planned sedation has been discussed with the patient. Informed Consent was obtained. I have identified the patient, determined the appropriateness of sedation and have assessed the patient immediately prior to the procedure. All medicine(s) and interventions are by my order.
--- NOTE | 2023-09-19 14:15 | Cardiac Catheterization ---
[facility] Data: Traveling Accountant Cardiac Status Clinical evaluation leading to the procedure CAD Presenation: Non STEMI Diagnostic Physicians Name: David Zhou MD Closure Device Recommendations: Medical Therapy and/or Counseling Cardiac Cath Procedure Full Procedure Date September 19, 2023 Pre-Procedure Diagnosis Pre-Procedure Diagnosis: Non STEMI AUC Score AUC Score: 7 Post-Procedure Diagnosis Post-Procedure Diagnosis: Severe CAD Procedure(s) Performed Procedure(s) Performed: Coronary Angiography Pharmaceutical Assistant David Zhou MD Beam Worker(s) none Estimated Blood Loss Estimated Blood Loss: 11cc Medication(s) Medication(s): Heparin, Lidocaine 1%, Nicardipine and Nitroglycerin Summary of Findings Procedure performed: Selective coronary angiography Staff equipment processor: David Zhou MD Indication: The patient is an 83-year-old gentleman with no known history of coronary disease who presented with an NSTEMI. Based on his presentation was felt to be a good candidate for coronary angiography Procedure in detail: The patient was informed of the risks benefits and alternatives to the intended procedure, he understood such and wished to proceed. He was taken to the cardiac catheterization suite in a fasting state. Conscious sedation was administered per protocol and the patient was monitored electrocardiographically throughout today's procedure. The right wrist area was prepped and draped in usual sterile fashion. This area was anesthetized using subcutaneous administration of a lidocaine solution. The right radial artery was then accessed using Seldinger technique, and a arterial sheath was placed at this site over a guidewire. The sheath was used to facilitate passage of the cardiac catheter for coronary angiography and left heart catheterization. Coronary angiogram was then obtained in multiple orthogonal views prior to removal of the catheter. At the conclusion of the procedure the sheath was removed and hemostasis was achieved at the access site using manual pressure. The patient tolerated procedure well, there were no immediate complications. Equipment used: 5 [place] tiger 4, 5 [place] JR4 Findings: Coronary angiography Left main: The left main was normal in size and caliber and bifurcated normally into left anterior descending left circumflex artery. There was some tapering in the proximal portion estimated at 30%. Left anterior descending: Left anterior descending was a heavily diseased vessel. He had had approximately 60% stenosis at the takeoff of the left main. Produced a 1st diagonal branch there was of medium size and had luminal regularities throughout its course. The LAD was 100% occluded after the 1st diagonal branch. Left circumflex artery: Left circumflex artery had a 90% stenosis in its proximal portion just after the takeoff from the left main. It produced a medium-sized branching 1st OM and was 100% occluded subsequent to the 1st OM. Right coronary: The right coronary was a large ectatic vessel which was difficult to fill. It appeared to produce some collaterals to the LAD and circumflex. Impression: Severe obstructive coronary disease involving the LAD and left circumflex systems. Ectatic but patent right coronary system Right dominant coronary system Evidence of recent acute coronary event involving the mid LAD Hemodynamics Rest Ao:: 110/71 mm of mercury Final Ao: 137/72 mm of mercury LV: n/a Recommendations Recommendations: Medical Therapy and/or Counseling Specimens Specimens: None Radiation Exposure (mGy) 1308 Contrast (mls) 50 Procedural Complication(s) None Disposition PCU I attest to the content of the Intraoperative Record and any orders documented therein. Any exceptions are noted below. [facility] Card Cath Procedure Codes Cardiac Catheterization Procedure 1: Cardiovascular Cath Procedures: 16475 Coronaries PG Care Time/CCT Total # of Minutes Spent Total Time Spent with Patient: Total time spent is greater than 50% in coordination of care (as documented) at patient's floor/unit and/or counseling patient:
--- NOTE | 2023-09-19 15:27 | Hospitalist Progress Note ---
Date of Service September 19, 2023 Assessment & Plan (1) Acute hypoxemic respiratory failure: Plan: Supplemental oxygen per nasal cannula to maintain saturation greater than 90%. Treat underlying CHF (2) Acute MS: Plan: Appears to be anterior wall. Ejection fraction 45%. Left heart catheterization completed today, September 19, with evidence of newly occluded LAD, chronically occluded circumflex. Cardiac echo reveals ejection fraction of 45% with anterior wall motion abnormalities. Continue heparin drip and other medications. Appreciate cardiology consultation and recommendations (3) Acute combined systolic and diastolic CHF, NYHA class 3: Plan: Parenteral Lasix and metolazone have been ordered. Monitor intake and output. Serial chest x-ray. He may need hemodialysis to eventually treat this (4) CKD (chronic kidney disease), stage IV: Plan: Nephrology consultation requested. Will monitor urine output and daily labs. Dye load with cardiac catheterization may push this to end-stage renal disease (5) Coronary arteriosclerosis: Plan: Left heart catheterization completed today, September 19. The LAD appears to be freshly occluded. The circumflex artery appears to be chronically occluded.. He will remain on heparin infusion for 48 hours. Continue current medical management (6) Hypothyroidism: Plan: Stable. Continue current thyroid supplementation (7) Hypertension: Plan: Stable. Continue current medical management (8) Dyslipidemia: Plan: Stable. Continue statin therapy (9) Controlled type 2 diabetes mellitus with kidney complication, with long-term current use of insulin: Plan: ADA diet. Sliding scale coverage. Basal insulin therapy. Plan To be determined. Will obtain OT and PT evaluations when appropriate Admission and Anticipated Discharge Date Admission Date: September 18, 2023 Subjective Alert and oriented. No complaints. He underwent left heart catheterization today, September 19, and was found to have an occluded LAD which is probably acute. There is evidence of chronically occluded circumflex artery and ectatic RCA. Ejection fraction is 45% with anterior wall hypokinesis. He appears to have suffered an acute anterior wall MS. He remains on heparin infusion. Cardiology consultation and recommendations appreciated. Nephrology consultation has been requested. Will monitor kidney function with a heart cath as he is approaching dialysis. He remains on oxygen at 4 L/min at this time. Continue parenteral Lasix therapy and metolazone. Review of Systems 2 Review of Systems: Constitutional-no fever or chills ENT-no blurred vision, no double vision, no epistaxis, no sore throat Respiratory-shortness of breath with minimal exertion. Nonproductive cough. No hemoptysis Cardiac-no palpitations, no chest pain, no syncope GI-no nausea, vomiting, diarrhea, melena, hematochezia -no urinary retention, no urinary incontinence, no dysuria, no hematuria Musculoskeletal-no joint pain, no muscle tenderness Skin-no bruising, no rashes, no pruritus Neuro-generalized weakness. No focal deficits Psych-no depression, no anxiety Physical Exam 2 Physical Exam: General-alert and oriented x3, no fevers, no chills HEENT-head atraumatic and normocephalic, pupils equal and reactive to light, extraocular muscles intact Neck-no lymphadenopathy or thyromegaly, trachea midline Chest-bibasilar inspiratory rales. No rhonchi. No wheezing Cardiac-regular rate and rhythm, normal S1 and S2 Abdomen-normal bowel sounds, nontender, no hepatosplenomegaly Extremities-1+ pitting edema bilateral lower extremities below the knees Neuro-cranial nerves II through XII intact, motor and sensory function within normal limits, strength symmetrical with generalized weakness, no focal deficits Psych-normal affect, normal mood Results & Data Results & Data Vital Signs (Past 12 Hours) Vital Signs Temp Pulse Pulse Resp BP BP Pulse Ox 09/19/23 15:22 36.7 C 90 19 156/103 H 91 09/19/23 14:59 37 C 88 22 159/104 H 91 09/19/23 14:35 93 H 18 168/77 H 98 09/19/23 14:20 95 H 18 127/72 95 09/19/23 14:15 90 20 95 09/19/23 13:03 88 18 127/72 96 09/19/23 10:36 36.4 C L 85 18 135/82 95 09/19/23 09:00 09/19/23 08:00 73 09/19/23 07:04 36.2 C L 82 19 133/75 100 09/19/23 03:58 77 21 98 O2 Del Method O2 Flow Rate FiO2 09/19/23 15:22 Oxymask 4.0 09/19/23 14:59 Oxymask 10 09/19/23 14:35 Non-rebreather 15 09/19/23 14:20 BiPAP 09/19/23 14:15 80 09/19/23 13:03 Nasal Cannula 3 09/19/23 10:36 Oxymask 09/19/23 09:00 Oxymask 10 09/19/23 08:00 09/19/23 07:04 Oxymask 11 09/19/23 03:58 40 Laboratory Results 09/19/23 06:35 09/19/23 06:35 PG Care Time/CCT Total # of Minutes Spent Total Time Spent with Patient: Total time spent is greater than 50% in coordination of care (as documented) at patient's floor/unit and/or counseling patient: Coding Level of Care Code 31021 SUB INP/OBS CARE 3/50MIN Diagnoses Acute hypoxemic respiratory failure J96.01 Acute MS I21.9 Acute combined systolic and diastolic CHF, 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 CKD (chronic kidney disease), stage IV N18.4 Coronary arteriosclerosis I25.10 Hypothyroidism, unspecified type E03.9 Hypothyroidism type: unspecified Hypertension secondary to other renal disorders I15.1; N28.89 Hypertension type: secondary to other renal disorders Dyslipidemia E78.5 Controlled type 2 diabetes mellitus with kidney complication, with long-term current use of insulin E11.29; Z79.4 (6) Hypothyroidism Hypothyroidism type: unspecified Qualified Code(s): E03.9 - Hypothyroidism, unspecified (7) Hypertension Hypertension type: secondary to other renal disorders Qualified Code(s): I 15.1 - Hypertension secondary to other renal disorders; N28.89 - Other specified disorders of kidney and ureter
[2023-09-19] MEDS ORDERED: CLOPIDOGREL BISULFATE 300 MG TAB PO STA (17:11)
[2023-09-19] MEDS: SIMVASTATIN 40 MG TAB PO SCH (20:35)
[2023-09-19] MEDS: EZETIMIBE 10 MG TAB PO SCH (20:35)
[2023-09-19] MEDS: METOPROLOL SUCC 25MG EXT REL TAB PO SCH (20:35)
[2023-09-19] MEDS: cloNIDine HCL 0.1 MG TAB PO SCH (20:36)
[2023-09-19] MEDS: LANTUS PER UNIT CHARGE SC SCH (21:30)
[2023-09-19 22:22] LABS: ANTI-Xa, UFH(UnfractionatedHep 0.12 IU/ml (0.3-0.7)
[2023-09-20] MEDS ORDERED: HEPARIN SOD (PORCINE) 1000 UNIT/ML IV ONE (00:15)
[2023-09-20] MEDS ORDERED: MELATONIN 3 MG TAB PO PRN (00:23)
[2023-09-20] MEDS: LEVOTHYROXINE SODIUM 50 MCG TABLET PO SCH (05:55)
[2023-09-20] MEDS: NITROGLYCERIN 2% OINTMENT 30GM TUBE EXT SCH ×3 (05:56→17:20)
[2023-09-20 06:47] LABS: BUN Creatinine Ratio 15.5 (10-20); Calcium 10.1 mg/dl (8.6-10.3); Creatinine Clr Calc Pharmacy 13.4 ml/min; Est GFR (African American) 11.5 ml/min; Est GFR (Non-African American) 9.9 ml/min
[2023-09-20 06:51] LABS: ANTI-Xa, UFH(UnfractionatedHep 0.39 IU/ml (0.3-0.7)
[2023-09-20] MEDS: FERROUS SULFATE 325 MG TAB PO SCH (07:55)
[2023-09-20] MEDS: PANTOprazole 40 MG TAB PO SCH (07:55)
[2023-09-20] MEDS: FINASTERIDE 5 MG TAB PO SCH (07:55)
[2023-09-20] MEDS: metOLazone 5 MG TABLET PO SCH (07:56)
[2023-09-20] MEDS: ASPIRIN 81 MG ECTAB PO SCH (07:56)
[2023-09-20] MEDS: FLUTICASONE PROPIONATE NA SPR 16 GM BTL SCH ×2 (07:56→20:56)
[2023-09-20] MEDS: CLOPIDOGREL BISULFATE 75 MG TAB PO SCH (07:57)
[2023-09-20] MEDS: FUROSEMIDE 40 MG/4 ML VIAL IV SCH ×2 (07:57→17:20)
[2023-09-20] MEDS: TAMSULOSIN HCL 0.4 MG CAP PO SCH (07:58)
[2023-09-20] MEDS: INSULIN ASPART PER UNIT CHARGE SC SCH ×4 (08:07→21:04)
--- NOTE | 2023-09-20 11:44 | Nephrology Progress Note ---
Date of Service September 20, 2023 Assessment & Plan (1) CKD (chronic kidney disease), stage V: (2) Acute TX: (3) Acute pulmonary edema: (4) Elevated troponin: (5) Hypertension: (6) Anemia: Plan 83 y o M with stage 5 CKD, b/lc r around 5.5, not on HD, waiting AVF maturation, admitted with Acute TX with elevated troponin, wall motion abnormalities and CHF. Cr at baseline, decent UO. BP fair. Had Cardiac cath on 09/19/23 showing Severe obstructive coronary disease involving the LAD and left circumflex systems and evidence of recent acute coronary event involving the mid LAD. BP stable. Respiratory status improved, received 1 dose of Lasix 80 mg IV this morning. Kidney function stable, electrolyte acceptable after cardiac cath yesterday. --Continue to monitor renal function, electrolyte and volume status. -- Although he is almost 10 kg above his recent weight, considering IV contrast exposure yesterday and the fact that he was on very low-dose of diuretics before and he had urine output more than 3 L, expect decent diuretic response with much lower dose of diuretics and avoid too aggressive diuresis immediately after cath. Recommend changing Lasix to 40 mg orally twice daily and monitor the response and aim for net -0.5 to 1 L/day. -- Hold CATY at this time -- Dose medications for eGFR less than 10, left arm nephrology precaution. Admission and Anticipated Discharge Date Admission Date: September 18, 2023 Subjective Davin was seen and evaluated this morning. He reports feeling better, less short of breath, no chest pain. Blood pressure fair. Kidney function stable, creatinine around 5.0, electrolyte acceptable. Review of Systems Review of Systems: Detailed review of system was otherwise unremarkable. Physical Exam Constitutional: WD/WN, vitals as above Eyes: + anicteric sclerae Neck: normal visual inspection Respiratory: Auscultation: + crackles Cardiovascular: Rate/Rhythm: regular rate and regular rhythm Heart Sounds: normal S1 and normal S2 Extremities: + AV fistula (left BC AVF with bruit.); no edema Musculoskeletal: Extremities: extremities normal to inspection Neurologic: no focal motor deficits Psychiatric: Orientation: alert and oriented x 3 Affect: euthymic affect Results & Data Vital Signs (Past 12 Hours) Vital Signs Temp Pulse Pulse Resp BP Pulse Ox O2 Del Method 09/20/23 09:12 Nasal Cannula 09/20/23 09:11 83 09/20/23 07:32 36.7 C 82 18 141/82 H 94 Nasal Cannula 09/20/23 03:07 36.4 C L 82 20 138/82 94 Nasal Cannula O2 Flow Rate 09/20/23 09:12 4 09/20/23 09:11 09/20/23 07:32 4 09/20/23 03:07 4 PG Care Time/CCT Total # of Minutes Spent Total Time Spent with Patient: Total time spent is greater than 50% in coordination of care (as documented) at patient's floor/unit and/or counseling patient: Coding Level of Care Code 80862 SUB INP/OBS CARE 235MIN Diagnoses CKD (chronic kidney disease), stage V N18.5 Acute [place] I21.9 Acute pulmonary edema J81.0 Elevated troponin R79.89 Hypertension secondary to other renal disorders I15.1; N28.89 Hypertension type: secondary to other renal disorders Anemia due to stage 3 chronic kidney disease N18.3; D63.1 Anemia type: due to chronic kidney disease Chronic kidney disease stage: stage 3 (moderate) (5) Hypertension Hypertension type: secondary to other renal disorders Qualified Code(s): I15.1 - Hypertension secondary to other renal disorders; N28.89 - Other specified disorders of kidney and ureter (6) Anemia Anemia type: due to chronic kidney disease Chronic kidney disease stage: stage 3 (moderate) Qualified Code(s): N18.3 - Chronic kidney disease, stage 3 (moderate); D63.1 - Anemia in chronic kidney disease
--- NOTE | 2023-09-20 13:04 | Cardiology Progress Note ---
Date of Service September 20, 2023 Assessment & Plan (1) Shortness of breath: (2) Elevated troponin: (3) Acute pulmonary edema: (4) CKD (chronic kidney disease), stage V: (5) Acute IN: Plan 1. NSTEMI: He will be treated medically at this point. Continue metoprolol succinate. I think we will try to increase the dose. Continue dual anti- platelet therapy. Will switch anti-lipid therapy to high-dose atorvastatin. We can stop heparin later this evening. One brief run of nonsustained ventricular tachycardia last evening. A few beats. 2. Decompensated left ventricular systolic failure: Much improved. He has had aggressive diuresis and responded well to intravenous Lasix. This regimen could likely be deescalated, perhaps to a daily dose of Lasix or even an oral formulation at this point. 3. Hypertension: He continues to have some elevated blood pressures. Will increase metoprolol. Continue nitrates. We can also add hydralazine at this point as he appears to be a poor candidate for Tyler/ARB/Entresto given the stability of his renal function and absence of other indications for dialysis at this point. 4. Valvular heart disease: Mild aortic regurgitation and mitral regurgitation. [id number] mitral stenosis. 5. Mild aortic root dilation. Will continue beta-blockade good blood pressure control 6. End-stage renal disease: Creatinine stable. Admission and Anticipated Discharge Date Admission Date: September 18, 2023 Subjective This afternoon the patient claimed he feeling better. He did not report any breathing difficulty. He has been ambulatory without significant dizziness, chest pain or breathing difficulty. No sense of palpitation. Overall energy improving. No discomfort at the right hand or access site Review of Systems Review of Systems: Per HPI Physical Exam Physical Exam: The patient is alert and oriented. Mood and affect appeared normal. He answered all questions appropriately. HEENT: Pupils are equal and reactive to light and accommodation. Extraocular movements are intact. The sclerae are anicteric. Neuro: Cranial nerves intact Lungs: Reduced breath sounds in the right mid lung field. No expiratory wheezing. Normal respiratory effort. Cardiac: Heart demonstrates a regular rate and rhythm. Normal S1 and S2. Crescendo systolic murmur Pulses: The patient has palpable radial pulses bilaterally that are equal in intensity Extremities: There was no evidence of hypoperfusion. There is no cyanosis or clubbing. There is no edema. Right hand appears well perfused. Skin: I did not appreciate any rashes on examination today. Results & Data Vital Signs (Past 12 Hours) Vital Signs Temp Pulse Pulse Resp BP Pulse Ox O2 Del Method 09/20/23 11:08 36.6 C 83 18 185/91 H 96 Room Air 09/20/23 09:12 Nasal Cannula 09/20/23 09:11 83 09/20/23 07:32 36.7 C 82 18 141/82 H 94 Nasal Cannula 09/20/23 03:07 36.4 C L 82 20 138/82 94 Nasal Cannula O2 Flow Rate 09/20/23 11:08 09/20/23 09:12 4 09/20/23 09:11 09/20/23 07:32 4 09/20/23 03:07 4 Laboratory Results Abnormal Lab Results 09/19/23 09/19/23 09/19/23 16:21 20:29 21:39 Heparin Anti-Xa, Unfract 0.12 L Sodium Potassium Chloride Carbon Dioxide Anion Gap BUN Creatinine Est Cr Clr Drug Dosing Est GFR ( Amer) Est GFR (Non-Af Amer) BUN/Creatinine Ratio Glucose POC Glucose 168 H 193 H Calcium 09/20/23 09/20/23 09/20/23 05:48 07:33 11:28 Heparin Anti-Xa, Unfract 0.39 Sodium 136 Potassium 4.0 Chloride 104 Carbon Dioxide 21 Anion Gap 11 BUN 78 H Creatinine 5.03 H* Est Cr Clr Drug Dosing 13.4 Est GFR ( Amer) 11.5 Est GFR (Non-Af Amer) 9.9 BUN/Creatinine Ratio 15.5 Glucose 214 H POC Glucose 214 H 296 H Calcium 10.1 PG Care Time/CCT Total # of Minutes Spent Total Time Spent with Patient: Total time spent is greater than 50% in coordination of care (as documented) at patient's floor/unit and/or counseling patient: Coding Level of Care Code 72747 SUB INP/OBS CARE 2/35MIN Diagnoses Shortness of breath R06.02 Elevated troponin R79.89 Acute pulmonary edema J81.0 CKD (chronic kidney disease), stage V N18.5 Acute non-ST elevation myocardial infarction (NSTEMI) I21.4 Myocardial infarction type: non-ST elevation myocardial infarction (5) Acute [place] Myocardial infarction type: non-ST elevation myocardial infarction Qualified Code(s): I21.4 - Non-ST elevation (NSTEMI) myocardial infarction
--- NOTE | 2023-09-20 13:55 | XRay Report ---
XR chest 1V portable HISTORY: 83 years-old Male CHF congestive heart failure COMPARISON: 09/18/2023 TECHNIQUE: AP view of the chest FINDINGS: Cardiac silhouette is enlarged. Pulmonary vascular congestion with interstitial coarsening. No pneumo thorax. Right greater than left layering pleural effusions with bibasilar consolidation again noted. There is overall improved aeration of the lungs with decreased pulmonary edema. Bones appear grossly intact. IMPRESSION: 1. Cardiomegaly with improving pulmonary edema and improved aeration of the left lung. 2. Layering pleural effusions with bibasilar opacities. ACT 112: Negative or not required by law. The above report was generated using voice recognition software. It may contain grammatical, syntax o r spelling errors. Electronically signed by: Gary Linton M.D. 09/20/2023 1:54 PM
--- NOTE | 2023-09-20 14:37 | Hospitalist Progress Note ---
Date of Service September 20, 2023 Assessment & Plan (1) Acute hypoxemic respiratory failure: Plan: Supplemental oxygen per nasal cannula to maintain saturation greater than 90%. Treat underlying CHF. (2) Acute GA: Plan: Appears to be anterior wall. Ejection fraction 45%. Left heart catheterization completed today, September 19, with evidence of newly occluded LAD, chronically occluded circumflex. Cardiac echo reveals ejection fraction of 45% with anterior wall motion abnormalities. Treated with heparin drip for 48 hours. Appreciate cardiology consultation and recommendations (3) Acute combined systolic and diastolic CHF, NYHA class 3: Plan: Continued brisk diuresis with parenteral Lasix and metolazone. Chest x-ray done today, September 20, looks better. Will repeat chest x-rays every 2 days. (4) CKD (chronic kidney disease), stage IV: Plan: Nephrology consultation appreciated. Creatinine is quite high but has remained stable since the heart catheterization. Continue daily labs. Will avoid excessive diuresis (5) Coronary arteriosclerosis: Plan: Left heart catheterization completed on September 19. The LAD appears to be freshly occluded. The circumflex artery appears to be chronically occluded. He will remain on heparin infusion for 48 hours. Continue current medical management (6) Hypothyroidism: Plan: Stable. Continue current thyroid supplementation (7) Hypertension: Plan: Stable. Continue current medical management (8) Dyslipidemia: Plan: Stable. Continue statin therapy (9) Controlled type 2 diabetes mellitus with kidney complication, with long-term current use of insulin: Plan: ADA diet. Sliding scale coverage. Basal insulin therapy. Plan OT and PT assessments will determine disposition at discharge. He probably will need SNF placement. Admission and Anticipated Discharge Date Admission Date: September 18, 2023 Subjective Alert and oriented. Continued good diuresis with parenteral Lasix. Chest x-ray done today, September 20, looks better. He remains on 4 L of oxygen however. OT and PT assessments are pending. Nephrology entry noted. Cardiology entry noted. Fortunately renal function remains stable after heart catheterization. Creatinine levels are quite high and he is approaching the need for dialysis. Review of Systems 2 Review of Systems: Constitutional-no fever or chills ENT-no blurred vision, no double vision, no epistaxis, no sore throat Respiratory-shortness of breath with minimal exertion. Nonproductive cough. No hemoptysis Cardiac-no palpitations, no chest pain, no syncope GI-no nausea, vomiting, diarrhea, melena, hematochezia -no urinary retention, no urinary incontinence, no dysuria, no hematuria Musculoskeletal-no joint pain, no muscle tenderness Skin-no bruising, no rashes, no pruritus Neuro-generalized weakness. No focal deficits Psych-no depression, no anxiety Physical Exam 2 Physical Exam: General-alert and oriented x3, no fevers, no chills HEENT-head atraumatic and normocephalic, pupils equal and reactive to light, extraocular muscles intact Neck-no lymphadenopathy or thyromegaly, trachea midline Chest-bibasilar inspiratory rales. No rhonchi. No wheezing Cardiac-regular rate and rhythm, normal S1 and S2 Abdomen-normal bowel sounds, nontender, no hepatosplenomegaly Extremities-1+ pitting edema bilateral lower extremities below the knees Neuro-cranial nerves II through XII intact, motor and sensory function within normal limits, strength symmetrical with generalized weakness, no focal deficits Psych-normal affect, normal mood Results & Data Results & Data Vital Signs (Past 12 Hours) Vital Signs Temp Pulse Pulse Resp BP Pulse Ox Pulse Ox 09/20/23 13:44 92 09/20/23 11:08 36.6 C 83 18 185/91 H 96 09/20/23 09:12 09/20/23 09:11 83 09/20/23 07:32 36.7 C 82 18 141/82 H 94 09/20/23 03:07 36.4 C L 82 20 138/82 94 O2 Del Method O2 Flow Rate O2 Flow Rate 09/20/23 13:44 4 09/20/23 11:08 Room Air 09/20/23 09:12 Nasal Cannula 4 09/20/23 09:11 09/20/23 07:32 Nasal Cannula 4 09/20/23 03:07 Nasal Cannula 4 Laboratory Results 09/19/23 06:35 09/20/23 05:48 PG Care Time/CCT Total # of Minutes Spent Total Time Spent with Patient: Total time spent is greater than 50% in coordination of care (as documented) at patient's floor/unit and/or counseling patient: Coding Level of Care Code 20593 SUB INP/OBS CARE 3/50MIN Diagnoses Acute hypoxemic respiratory failure J96.01 Acute GA I21.9 Acute combined systolic and diastolic CHF, 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 CKD (chronic kidney disease), stage IV N18.4 Coronary arteriosclerosis I25.10 Hypothyroidism, unspecified type E03.9 Hypothyroidism type: unspecified Hypertension secondary to other renal disorders I15.1; N28.89 Hypertension type: secondary to other renal disorders Dyslipidemia E78.5 Controlled type 2 diabetes mellitus with kidney complication, with long-term current use of insulin E11.29; Z79.4 (6) Hypothyroidism Hypothyroidism type: unspecified Qualified Code(s): E03.9 - Hypothyroidism, unspecified (7) Hypertension Hypertension type: secondary to other renal disorders Qualified Code(s): I 15.1 - Hypertension secondary to other renal disorders; N28.89 - Other specified disorders of kidney and ureter
[2023-09-20] MEDS: EZETIMIBE 10 MG TAB PO SCH (20:55)
[2023-09-20] MEDS: cloNIDine HCL 0.1 MG TAB PO SCH (20:55)
[2023-09-20] MEDS: LANTUS PER UNIT CHARGE SC SCH (21:05)
[2023-09-20] MEDS: ACETAMINOPHEN 1,000 MG/100 ML VIAL IV PRN (21:25)
[2023-09-21] MEDS: NITROGLYCERIN 2% OINTMENT 30GM TUBE EXT SCH (06:30)
[2023-09-21] MEDS: LEVOTHYROXINE SODIUM 50 MCG TABLET PO SCH (06:30)
[2023-09-21 07:02] LABS: Basophils # (auto) 0.03 K/uL (0.00-0.20); Basophils % (auto) 0.5 %; Eosinophils # (auto) 0.18 K/uL (0.00-0.50); Hematocrit (blood only) 35.5 % (42.0-52.0); Hemoglobin 11.3 g/dl (14.0-18.0); Immature Granulocytes # (auto) 0.02 K/uL (0.01-0.20); Immature Granulocytes % (auto) 0.3 %; Lymphocytes # (auto) 0.68 K/uL (1.20-3.40); Lymphocytes % (auto) 11.5 %; Mean Corpuscular Hemoglobin 29.5 pg (25.0-34.0); Mean Corpuscular Hgb Conc 31.8 g/dL (32.0-36.0); Mean Corpuscular Volume 92.7 fL (80.0-100.0); Mean Platelet Volume 10.5 fL (9.4-12.4); Monocytes # (auto) 0.69 K/uL (0.11-0.59); Monocytes % (auto) 11.7 %; Neutrophils # (auto) 4.32 K/uL (1.40-6.50); Platelet Count 235 K/uL (130-400); RDW Coefficient of Variation 15.8 % (11.5-14.5); RDW Standard Deviation 53.8 fL (36.4-46.3); Red Blood Count 3.83 M/uL (4.70-6.10); White Blood Count 5.92 K/ul (4.8-10.8)
[2023-09-21 07:13] LABS: BUN Creatinine Ratio 14.8 (10-20); Calcium 10.2 mg/dl (8.6-10.3); Est GFR (African American) 10.1 ml/min; Est GFR (Non-African American) 8.7 ml/min; Potassium 3.6 mmol/L (3.5-5.1)
[2023-09-21 07:16] LABS: ANTI-Xa, UFH(UnfractionatedHep < 0.10 IU/ml (0.3-0.7)
[2023-09-21] MEDS: INSULIN ASPART PER UNIT CHARGE SC SCH ×4 (08:04→20:36)
[2023-09-21] MEDS: FLUTICASONE PROPIONATE NA SPR 16 GM BTL SCH ×2 (08:06→20:36)
[2023-09-21] MEDS: metOLazone 5 MG TABLET PO SCH (08:06)
[2023-09-21] MEDS: CLOPIDOGREL BISULFATE 75 MG TAB PO SCH (08:07)
[2023-09-21] MEDS: TAMSULOSIN HCL 0.4 MG CAP PO SCH (08:07)
[2023-09-21] MEDS: FINASTERIDE 5 MG TAB PO SCH (08:07)
[2023-09-21] MEDS: ASPIRIN 81 MG ECTAB PO SCH (08:07)
[2023-09-21] MEDS: FERROUS SULFATE 325 MG TAB PO SCH (08:07)
[2023-09-21] MEDS: ATORVASTATIN 40 MG TAB PO SCH (08:08)
[2023-09-21] MEDS: METOPROLOL SUCC 50MG EXT REL TAB PO SCH (08:08)
[2023-09-21] MEDS: PANTOprazole 40 MG TAB PO SCH (08:08)
[2023-09-21] MEDS ORDERED: FUROSEMIDE 40 MG/4 ML VIAL IV SCH (09:00)
[2023-09-21] MEDS ORDERED: POTASSIUM CHLORIDE CRTAB 20 MEQ TABCR PO ONE (10:27)
--- NOTE | 2023-09-21 10:55 | XCELERA ---
[id number] \\[id number]
[2023-09-21] MEDS: NITROGLYCERIN 0.4 MG/HR PATCH TD SCH (11:39)
--- NOTE | 2023-09-21 15:05 | Nephrology Progress Note ---
Date of Service September 21, 2023 Assessment & Plan (1) CKD (chronic kidney disease), stage V: (2) Acute ID: (3) Acute pulmonary edema: (4) Elevated troponin: (5) Hypertension: (6) Anemia: (7) JV (acute kidney injury): Plan 83 y o M with stage 5 CKD, b/lc r around 5.5, not on HD, waiting AVF maturation, admitted with Acute ID with elevated troponin, wall motion abnormalities and CHF. Cr at baseline, decent UO. BP fair. Had Cardiac cath on 09/19/23 showing Severe obstructive coronary disease involving the LAD and left circumflex systems and evidence of recent acute coronary event involving the mid LAD. Medical management recommended. BP stable. Respiratory status improved, received 1 dose of Lasix 80 mg IV this morning. Kidney function slightly worsened, cr 5.6 mg/dl,, electrolyte acceptable. Net negative >1.5 L --hold Metolazone, resume Lasix at 40 mg po bid, monitor intake/output and aim for net -0.5 to 1 L/day. --Continue to monitor renal function, electrolyte and volume status. --Dose medications for eGFR less than 10, left arm nephrology precaution. Admission and Anticipated Discharge Date Admission Date: September 18, 2023 Subjective Davin was seen and evaluated this morning. He seemed somewhat lethargic this morning although easily woke up, denied any specific symptoms, no SOB, CP. Blood pressure fair. Slight worsening of Kidney function noted this morning, creatinine 5.6 mg/dl, electrolyte acceptable. Net negative 1.5 L. Review of Systems Review of Systems: Detailed review of system was otherwise unremarkable. Physical Exam Constitutional: WD/WN, vitals as above Respiratory: no respiratory distress Auscultation: + diminished lung sounds Cardiovascular: Rate/Rhythm: regular rate and regular rhythm Heart Sounds: normal S1 and normal S2 Extremities: + AV fistula (left BC AVF with bruit.); no edema Neurologic: no focal motor deficits Psychiatric: Orientation: alert and oriented x 3 Affect: euthymic affect Results & Data Vital Signs (Past 12 Hours) Vital Signs Temp Pulse Pulse Resp BP Pulse Ox O2 Del Method 09/21/23 11:02 36.9 C 115 H 16 134/71 97 Nasal Cannula 09/21/23 08:30 Nasal Cannula 09/21/23 08:29 88 09/21/23 07:52 36.8 C 101 H 18 124/81 94 Nasal Cannula O2 Flow Rate 09/21/23 11:02 3 09/21/23 08:30 3 09/21/23 08:29 09/21/23 07:52 3 PG Care Time/CCT Total # of Minutes Spent Total Time Spent with Patient: Total time spent is greater than 50% in coordination of care (as documented) at patient's floor/unit and/or counseling patient: Coding Level of Care Code 60363 SUB INP/OBS CARE 2/35MIN Diagnoses CKD (chronic kidney disease), stage V N18.5 Acute non-ST elevation myocardial infarction (NSTEMI) I21.4 Myocardial infarction type: non-ST elevation myocardial infarction Acute pulmonary edema J81.0 Elevated troponin R79.89 Hypertension secondary to other renal disorders I15.1; N28.89 Hypertension type: secondary to other renal disorders Anemia due to stage 3 chronic kidney disease N18.3; D63.1 Anemia type: due to chronic kidney disease Chronic kidney disease stage: stage 3 (moderate) JV (acute kidney injury) N17.9 (2) Acute ID Myocardial infarction type: non-ST elevation myocardial infarction Qualified Code(s): I21.4 - Non-ST elevation (NSTEMI) myocardial infarction (5) Hypertension Hypertension type: secondary to other renal disorders Qualified Code(s): I15.1 - Hypertension secondary to other renal disorders; N28.89 - Other specified disorders of kidney and ureter (6) Anemia Anemia type: due to chronic kidney disease Chronic kidney disease stage: stage 3 (moderate) Qualified Code(s): N18.3 - Chronic kidney disease, stage 3 (moderate); D63.1 - Anemia in chronic kidney disease
--- NOTE | 2023-09-21 15:27 | Hospitalist Progress Note ---
Date of Service September 21, 2023 Assessment & Plan (1) Acute hypoxemic respiratory failure: Plan: Supplemental oxygen per nasal cannula to maintain saturation greater than 90%. Treat underlying CHF. Wean off as tolerated (2) Acute FL: Plan: Appears to be anterior wall. Ejection fraction 45%. Left heart catheterization completed today, September 19, with evidence of newly occluded LAD, chronically occluded circumflex. Cardiac echo reveals ejection fraction of 45% with anterior wall motion abnormalities. He has been treated with heparin drip for 48 hours. Appreciate cardiology consultation and recommendations (3) Acute combined systolic and diastolic CHF, NYHA class 3: Plan: Brisk diuresis induced with parenteral Lasix and metolazone. Metolazone has been discontinued. There are conflicting orders from nephrology and cardiology regarding IV versus p.o. Lasix. Will repeat chest x-ray again tomorrow, September 22. (4) CKD (chronic kidney disease), stage IV: Plan: Nephrology consultation appreciated. Creatinine is quite high and jumped slightly to 5.5 from 5.0. Daily labs ordered. Appreciate nephrology consultation and recommendations. Will avoid excessive diuresis (5) Coronary arteriosclerosis: Plan: Left heart catheterization completed on September 19. The LAD appears to be freshly occluded. The circumflex artery appears to be chronically occluded. He has completed his heparin transfusion for 48 hours. Continue current medical management (6) Hypothyroidism: Plan: Stable. Continue current thyroid supplementation (7) Hypertension: Plan: Stable. Continue current medical management (8) Dyslipidemia: Plan: Stable. Continue statin therapy (9) Controlled type 2 diabetes mellitus with kidney complication, with long-term current use of insulin: Plan: ADA diet. Sliding scale coverage. Basal insulin therapy. Plan [facility] tomorrow[facility] 22 Admission and Anticipated Discharge Date Admission Date: September 18, 2023 Subjective Alert and oriented. CHF continues to resolve. Conflicting Lasix orders with both oral and IV Lasix ordered per nephrology and cardiology respectively. Creatinine has risen slightly to 5.5. Oxygen requirements have decreased. [facility]. Will repeat chest x-ray again tomorrow, September 22 Review of Systems 2 Review of Systems: Constitutional-no fever or chills ENT-no blurred vision, no double vision, no epistaxis, no sore throat Respiratory-shortness of breath with minimal exertion. Nonproductive cough. No hemoptysis Cardiac-no palpitations, no chest pain, no syncope GI-no nausea, vomiting, diarrhea, melena, hematochezia -no urinary retention, no urinary incontinence, no dysuria, no hematuria Musculoskeletal-no joint pain, no muscle tenderness Skin-no bruising, no rashes, no pruritus Neuro-generalized weakness. No focal deficits Psych-no depression, no anxiety Physical Exam 2 Physical Exam: General-alert and oriented x3, no fevers, no chills HEENT-head atraumatic and normocephalic, pupils equal and reactive to light, extraocular muscles intact Neck-no lymphadenopathy or thyromegaly, trachea midline Chest-bibasilar inspiratory rales. No rhonchi. No wheezing Cardiac-regular rate and rhythm, normal S1 and S2 Abdomen-normal bowel sounds, nontender, no hepatosplenomegaly Extremities-1+ pitting edema bilateral lower extremities below the knees Neuro-cranial nerves II through XII intact, motor and sensory function within normal limits, strength symmetrical with generalized weakness, no focal deficits Psych-normal affect, normal mood Results & Data Results & Data Vital Signs (Past 12 Hours) Vital Signs Temp Pulse Pulse Resp BP Pulse Ox O2 Del Method 09/21/23 11:02 36.9 C 115 H 16 134/71 97 Nasal Cannula 09/21/23 08:30 Nasal Cannula 09/21/23 08:29 88 09/21/23 07:52 36.8 C 101 H 18 124/81 94 Nasal Cannula O2 Flow Rate 09/21/23 11:02 3 09/21/23 08:30 3 09/21/23 08:29 09/21/23 07:52 3 Laboratory Results 09/21/23 05:36 09/21/23 05:36 PG Care Time/CCT Total # of Minutes Spent Total Time Spent with Patient: Total time spent is greater than 50% in coordination of care (as documented) at patient's floor/unit and/or counseling patient: Coding Level of Care Code 35878 SUB INP/OBS CARE 3/50MIN Diagnoses Acute hypoxemic respiratory failure J96.01 Acute non-ST elevation myocardial infarction (NSTEMI) I21.4 Myocardial infarction type: non-ST elevation myocardial infarction Acute combined systolic and diastolic CHF, 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 CKD (chronic kidney disease), stage IV N18.4 Coronary arteriosclerosis I25.10 Hypothyroidism, unspecified type E03.9 Hypothyroidism type: unspecified Hypertension secondary to other renal disorders I15.1; N28.89 Hypertension type: secondary to other renal disorders Dyslipidemia E78.5 Controlled type 2 diabetes mellitus with kidney complication, with long-term current use of insulin E11.29; Z79.4 (2) Acute [place] Myocardial infarction type: non-ST elevation myocardial infarction Qualified Code(s): I21.4 - Non-ST elevation (NSTEMI) myocardial infarction (6) Hypothyroidism Hypothyroidism type: unspecified Qualified Code(s): E03.9 - Hypothyroidism, unspecified (7) Hypertension Hypertension type: secondary to other renal disorders Qualified Code(s): I 15.1 - Hypertension secondary to other renal disorders; N28.89 - Other specified disorders of kidney and ureter
--- NOTE | 2023-09-21 16:54 | Cardiology Progress Note ---
Date of Service September 21, 2023 Assessment & Plan (1) Shortness of breath: (2) Elevated troponin: (3) Acute pulmonary edema: (4) CKD (chronic kidney disease), stage V: (5) Acute RI: Plan 1. NSTEMI: He will be treated medically at this point. Continue metoprolol and dual anti-platelet therapy. Simvastatin switch to high-dose atorvastatin. One brief run of nonsustained ventricular tachycardia this morning. Just a few beats. Metoprolol increased. 2. Decompensated left ventricular systolic failure: Much improved. Will return him to an oral regimen of diuretics. 3. Hypertension: Blood pressure appears better controlled today. 4. Valvular heart disease: Mild aortic regurgitation and mitral regurgitation. Vbef-cb-soaqukfy mitral stenosis. 5. Mild aortic root dilation. Will continue beta-blockade good blood pressure control 6. End-stage renal disease: Creatinine slightly worse. Still has good urine output. 7. Ischemic cardiomyopathy. He does have mildly reduced LV systolic function wall motion abnormality consistent with his infarct. No thrombus noted on repeat echocardiogram today. No indication for systemic anticoagulation. Poor candidate currently for more aggressive therapy such as Tyler/ARB/Entresto. I do not think he is a good candidate for spironolactone at this time either given his renal dysfunction. He would be stable for discharge from our standpoint. He could be discharged on his current medical regimen with follow-up with his primary quality control specialist Dr. Arrington in the outpatient setting. We will consult cardiac rehab. Admission and Anticipated Discharge Date Admission Date: September 18, 2023 Subjective This afternoon the patient claimed he feeling well. He did not report any breathing difficulty. He was ambulatory to the bathroom which required significant energy. No exertional chest pain. No dizziness or lightheadedness. No sense of palpitation. Review of Systems Review of Systems: Per HPI Physical Exam Physical Exam: The patient is alert and oriented. Mood and affect appeared normal. He answered all questions appropriately. HEENT: Pupils are equal and reactive to light and accommodation. Extraocular movements are intact. The sclerae are anicteric. Neuro: Cranial nerves intact Lungs: Lungs clear bilaterally. Normal respiratory effort. Cardiac: Heart demonstrates a regular rate and rhythm. Normal S1 and S2. Crescendo systolic murmur Pulses: The patient has palpable radial pulses bilaterally that are equal in intensity Extremities: There was no evidence of hypoperfusion. There is no cyanosis or clubbing. There is no edema. Right hand appears well perfused. Skin: I did not appreciate any rashes on examination today. ENMT: Mallampati Class: III Respiratory: normal respiratory effort Cardiovascular: Rate/Rhythm: regular rate and regular rhythm Results & Data Vital Signs (Past 12 Hours) Vital Signs Temp Pulse Pulse Resp BP Pulse Ox O2 Del Method 09/21/23 16:44 81 09/21/23 15:55 36.8 C 121 H 18 121/65 98 Nasal Cannula 09/21/23 11:02 36.9 C 115 H 16 134/71 97 Nasal Cannula 09/21/23 08:30 Nasal Cannula 09/21/23 08:29 88 09/21/23 07:52 36.8 C 101 H 18 124/81 94 Nasal Cannula O2 Flow Rate 09/21/23 16:44 09/21/23 15:55 3 09/21/23 11:02 3 09/21/23 08:30 3 09/21/23 08:29 09/21/23 07:52 3 Laboratory Results Abnormal Lab Results 09/20/23 09/21/23 09/21/23 20:59 05:36 07:37 WBC 5.92 RBC 3.83 L Hgb 11.3 L Hct 35.5 L MCV 92.7 MCH 29.5 MCHC 31.8 L RDW Std Deviation 53.8 H RDW Coeff of Aysha 15.8 H Plt Count 235 MPV 10.5 Immature Gran % (Auto) 0.3 Neut % (Auto) 73.0 Lymph % (Auto) 11.5 Peach % (Auto) 11.7 Eos % (Auto) 3.0 Baso % (Auto) 0.5 Neut # (Auto) 4.32 Lymph # (Auto) 0.68 L Peach # (Auto) 0.69 H Eos # (Auto) 0.18 Baso # (Auto) 0.03 Immature Gran # (Auto) 0.02 Heparin Anti-Xa, Unfract < 0.10 L Sodium 135 L Potassium 3.6 Chloride 99 Carbon Dioxide 22 Anion Gap 14 H BUN 83 H Creatinine 5.59 H* D Est Cr Clr Drug Dosing 12.0 Est GFR ( Amer) 10.1 Est GFR (Non-Af Amer) 8.7 BUN/Creatinine Ratio 14.8 Glucose 161 H POC Glucose 176 H 172 H Calcium 10.2 09/21/23 09/21/23 11:31 16:44 WBC RBC Hgb Hct MCV MCH MCHC RDW Std Deviation RDW Coeff of Aysha Plt Count MPV Immature Gran % (Auto) Neut % (Auto) Lymph % (Auto) Peach % (Auto) Eos % (Auto) Baso % (Auto) Neut # (Auto) Lymph # (Auto) Peach # (Auto) Eos # (Auto) Baso # (Auto) Immature Gran # (Auto) Heparin Anti-Xa, Unfract Sodium Potassium Chloride Carbon Dioxide Anion Gap BUN Creatinine Est Cr Clr Drug Dosing Est GFR ( Amer) Est GFR (Non-Af Amer) BUN/Creatinine Ratio Glucose POC Glucose 281 H 257 H Calcium PG Care Time/CCT Total # of Minutes Spent Total Time Spent with Patient: Total time spent is greater than 50% in coordination of care (as documented) at patient's floor/unit and/or counseling patient: Coding Level of Care Code 11452 SUB INP/OBS CARE 2/35MIN Diagnoses Shortness of breath R06.02 Elevated troponin R79.89 Acute pulmonary edema J81.0 CKD (chronic kidney disease), stage V N18.5 Acute non-ST elevation myocardial infarction (NSTEMI) I21.4 Myocardial infarction type: non-ST elevation myocardial infarction (5) Acute RI Myocardial infarction type: non-ST elevation myocardial infarction Qualified Code(s): I21.4 - Non-ST elevation (NSTEMI) myocardial infarction
[2023-09-21] MEDS: FUROSEMIDE 40 MG TAB PO SCH (17:04)
[2023-09-21] MEDS: cloNIDine HCL 0.1 MG TAB PO SCH (20:35)
[2023-09-21] MEDS: EZETIMIBE 10 MG TAB PO SCH (20:36)
[2023-09-21] MEDS: LANTUS PER UNIT CHARGE SC SCH (20:37)
[2023-09-22 07:09] LABS: Basophils # (auto) 0.04 K/uL (0.00-0.20); Basophils % (auto) 0.7 %; Eosinophils % (auto) 3.4 %; Hematocrit (blood only) 35.3 % (42.0-52.0); Immature Granulocytes # (auto) 0.02 K/uL (0.01-0.20); Immature Granulocytes % (auto) 0.3 %; Lymphocytes # (auto) 0.86 K/uL (1.20-3.40); Lymphocytes % (auto) 14.6 %; Mean Corpuscular Hemoglobin 28.7 pg (25.0-34.0); Mean Corpuscular Hgb Conc 31.2 g/dL (32.0-36.0); Mean Corpuscular Volume 92.2 fL (80.0-100.0); Mean Platelet Volume 10.6 fL (9.4-12.4); Monocytes # (auto) 0.75 K/uL (0.11-0.59); Monocytes % (auto) 12.8 %; Neutrophils # (auto) 4.01 K/uL (1.40-6.50); Neutrophils % (auto) 68.2 %; Platelet Count 232 K/uL (130-400); RDW Coefficient of Variation 15.6 % (11.5-14.5); Red Blood Count 3.83 M/uL (4.70-6.10); White Blood Count 5.88 K/ul (4.8-10.8)
[2023-09-22] MEDS ORDERED: LEVOTHYROXINE SODIUM 50 MCG TABLET PO ONE (07:25)
[2023-09-22 07:41] LABS: Calcium 9.8 mg/dl (8.6-10.3); Creatinine Clr Calc Pharmacy 10.6 ml/min; Est GFR (African American) 9.4 ml/min; Est GFR (Non-African American) 8.1 ml/min; Potassium 3.8 mmol/L (3.5-5.1)
--- NOTE | 2023-09-22 08:01 | XRay Report ---
XR chest 1V portable HISTORY: 83 years-old Male CHF acute shortness of breath with congestive heart failure COMPARISON: 09/20/2023 TECHNIQUE: AP view of the chest FINDINGS: Cardiac silhouette is enlarged. Pulmonary vascular congestion with interstitial coarsening. No pneumo thorax. Right greater than left layering pleural effusions with bibasilar consolidation again noted. The bones appear grossly intact. IMPRESSION: 1. Cardiomegaly with unchanged pulmonary edema. 2. Stable layering pleural effusions with bibasilar opacities. ACT 112: Negative or not required by law. The above report was generated using voice recognition software. It may contain grammatical, syntax o r spelling errors. Electronically signed by: Gary Linton M.D. 09/22/2023 8:00 AM
[2023-09-22] MEDS: INSULIN ASPART PER UNIT CHARGE SC SCH ×2 (08:02→13:06)
[2023-09-22] MEDS: ASPIRIN 81 MG ECTAB PO SCH (08:04)
[2023-09-22] MEDS: METOPROLOL SUCC 50MG EXT REL TAB PO SCH (08:04)
[2023-09-22] MEDS: FERROUS SULFATE 325 MG TAB PO SCH (08:05)
[2023-09-22] MEDS: CLOPIDOGREL BISULFATE 75 MG TAB PO SCH (08:06)
[2023-09-22] MEDS: ATORVASTATIN 40 MG TAB PO SCH (08:06)
[2023-09-22] MEDS: FINASTERIDE 5 MG TAB PO SCH (08:08)
[2023-09-22] MEDS: FLUTICASONE PROPIONATE NA SPR 16 GM BTL SCH (08:08)
[2023-09-22] MEDS: TAMSULOSIN HCL 0.4 MG CAP PO SCH (08:09)
[2023-09-22] MEDS: FUROSEMIDE 40 MG TAB PO SCH (08:09)
[2023-09-22] MEDS: PANTOprazole 40 MG TAB PO SCH (08:10)
[2023-09-22] MEDS: NITROGLYCERIN 0.4 MG/HR PATCH TD SCH (08:20)
--- NOTE | 2023-09-22 12:51 | Nephrology Progress Note ---
Date of Service September 22, 2023 Assessment & Plan (1) CKD (chronic kidney disease), stage V: Plan: Creatinine relatively stable. Davin denies uremic symptoms. Good urine output. Electrolytes are acceptable. Kidney dysfunction is advanced but there is no emergent indication for HD at this time. Continue furosemide 40 mg PO BID as Rx. Monitor weights. Renal diet - sodium restricted. Close monitoring and outpatient follow up will be required. I would advise a repeat metabolic profile within 24-48 hours. Follow up with me in the nephrology clinic within the next 2 weeks. L AC AVF placed by Dr. Godinez on July 03. Fistula is maturing but bruit is hi gh pitched. Transposition will be required when mature. Close follow up with vascular surgery will be required. Left wrist AVF placed by Dr. Godinez on 12/20/22 unfortunately failed and was non-salvageable. Medications are appropriate for kidney function. Avoid RAASi at this time due to advanced kidney dysfunction. (2) JV (acute kidney injury): Plan: Creatinine relatively stable. JV hemodynamically mediated in setting of NSTEMI and aggressive diuresis. Non-oliguric. Electrolytes acceptable. (3) Acute pulmonary edema: Plan: Resolved. Volume status acceptable. Continue furosemide as Rx. (4) Anemia: Plan: Hgb acceptable. Recently completed IV iron loading as an outpatient. Has intermittently required CATY therapy with Aranesp as an outpatient. No current indication for CATY therapy. Will monitor. (5) NSTEMI (non-ST elevated myocardial infarction): Plan: Cath demonstrating severe disease notably LAD and L circ. Anterolateral akinesis at apex consistent with LAD infarct. No active symptoms. Medical management is being provided. High potency statin therapy. Metoprolol has been increased. Dual antiplatelet therapy. (6) Cardiomyopathy: Plan: Mildly reduced LVEF (~40%). Hydralazine + LA nitrate. No AUDELIA/ARB or MRA due to kidney dysfunction. Consider hydralazine + LA nitrate as tolerated. Admission and Anticipated Discharge Date Admission Date: September 18, 2023 Subjective No acute events overnight. No complaints this AM. Davin feels well. He is anticipating discharge to [facility] this afternoon. I discussed the plan of care with Dr. Marc this AM. Davin denies any chest pain. No palpitations. No shortness of breath. He is not experiencing fluid retention or edema. Appetite is good. Review of Systems Review of Systems: All systems reviewed & are unremarkable except as noted in HPI & below Physical Exam Constitutional: well developed; no acute distress Eyes: no scleral abnormality and no corneal abnormality Neck: normal visual inspection and trachea midline Respiratory: normal respiratory effort Auscultation: lungs clear to au scultation bilaterally Cardiovascular: Rate/Rhythm: regular rate Heart Sounds: normal S1, normal S2 and + murmur Extremities: + AV fistula (with thrill and high pitched bruit LUE BC, RC without thrill or bruit); no edema Musculoskeletal: Extremities: no cyanosis and no clubbing Skin: normal turgor; no lesions Neurologic: Motor/Sensory: no tremor and no asterixis Psychiatric: Orientation: alert and oriented x 3 Results & Data Vital Signs (Past 12 Hours) Vital Signs Temp Pulse Resp BP BP Pulse Ox O2 Del Method 09/22/23 12:19 36.7 C 82 19 93/57 L 94 Room Air 09/22/23 08:00 Room Air 09/22/23 07:25 36.8 C 79 20 116/66 91 Room Air 09/22/23 03:00 36.4 C L 80 16 110/73 97 Nasal Cannula Laboratory Results Laboratory Results - last 24 hr 09/21/23 09/21/23 09/22/23 16:44 20:18 06:30 WBC 5.88 RBC 3.83 L Hgb 11.0 L Hct 35.3 L MCV 92.2 MCH 28.7 MCHC 31.2 L RDW Std Deviation 52.0 H RDW Coeff of Aysha 15.6 H Plt Count 232 MPV 10.6 Immature Gran % (Auto) 0.3 Neut % (Auto) 68.2 Lymph % (Auto) 14.6 Dickens % (Auto) 12.8 Eos % (Auto) 3.4 Baso % (Auto) 0.7 Neut # (Auto) 4.01 Lymph # (Auto) 0.86 L Dickens # (Auto) 0.75 H Eos # (Auto) 0.20 Baso # (Auto) 0.04 Immature Gran # (Auto) 0.02 Sodium 134 L Potassium 3.8 Chloride 98 Carbon Dioxide 21 Anion Gap 15 H BUN 95 H Creatinine 5.95 H* D Est Cr Clr Drug Dosing 10.6 Est GFR ( Amer) 9.4 Est GFR (Non-Af Amer) 8.1 BUN/Creatinine Ratio 16.0 Glucose 152 H POC Glucose 257 H 270 H Calcium 9.8 09/22/23 09/22/23 07:27 11:12 WBC RBC Hgb Hct MCV MCH MCHC RDW Std Deviation RDW Coeff of Aysha Plt Count MPV Immature Gran % (Auto) Neut % (Auto) Lymph % (Auto) Dickens % (Auto) Eos % (Auto) Baso % (Auto) Neut # (Auto) Lymph # (Auto) Dickens # (Auto) Eos # (Auto) Baso # (Auto) Immature Gran # (Auto) Sodium Potassium Chloride Carbon Dioxide Anion Gap BUN Creatinine Est Cr Clr Drug Dosing Est GFR ( Amer) Est GFR (Non-Af Amer) BUN/Creatinine Ratio Glucose POC Glucose 146 H 226 H Calcium PG Care Time/CCT Total # of Minutes Spent Total Time Spent with Patient: Total time spent is greater than 50% in coordination of care (as documented) at patient's floor/unit and/or counseling patient: Coding Level of Care Code 72534 SUB INP/OBS CARE 3/50MIN Diagnoses CKD (chronic kidney disease), stage V N18.5 JV (acute kidney injury) N17.9 Acute pulmonary edema J81.0 Anemia due to stage 3 chronic kidney disease N18.3; D63.1 Anemia type: due to chronic kidney disease Chronic kidney disease stage: stage 3 (moderate) NSTEMI (non-ST elevated myocardial infarction) I21.4 Cardiomyopathy I42.9 (4) Anemia Anemia type: due to chronic kidney disease Chronic kidney disease stage: stage 3 (moderate) Qualified Code(s): N18.3 - Chronic kidney disease, stage 3 (moderate); D63.1 - Anemia in chronic kidney disease
--- NOTE | 2023-09-22 12:57 | Discharge Summary ---
Date of Service September 22, 2023 Admission HPI Per Admitting Provider 83 yo male with PMHx of HTN, HLD, iron deficiency anemia, HFpEF, DM2, hypothyroidism, BPH, CKD stage 5 presents with shortness of breath. For the past 3 days patient has had ongoing shortness of breath. No worse on exertion. Earlier today he had a mechanical fall down his stairs and was unable to get up due to weakness. He was down for about 4 hours. He did hit his head and has an abrasion on his left forehead. He denies headache, fever, chest pain, abdominal pain, cough, congestion, nausea, vomiting, diarrhea, dysuria. He is compliant with his medications. He did go to his daughter's for Di breakfast and admits to having a saltier meal than his usual. No known sick contacts. Principal Diagnosis Acute anterior wall MA, acute hypoxic respiratory failure, acute on chronic combined systolic and diastolic CHF, Discharge Exam General-alert and oriented x3, no fevers, no chills HEENT-head atraumatic and normocephalic, pupils equal and reactive to light, extraocular muscles intact Neck-no lymphadenopathy or thyromegaly, trachea midline Chest-bibasilar inspiratory rales. No rhonchi. No wheezing Cardiac-regular rate and rhythm, normal S1 and S2 Abdomen-normal bowel sounds, nontender, no hepatosplenomegaly Extremities-1+ pitting edema bilateral lower extremities below the knees Neuro-cranial nerves II through XII intact, motor and sensory function within normal limits, strength symmetrical with generalized weakness, no focal deficits Psych-normal affect, normal mood Discharge Data Allergies Allergy/AdvReac Type Severity Reaction Status Date / Time latex Allergy Mild SKIN Verified 09/18/23 19:06 IRRITATION Consultations 09/18/23 16:04 ED Decision to Admit Stat 09/19/23 07:57 Consult Cardiology Routine 09/19/23 11:38 Consult Nephrology Routine 09/21/23 16:55 Consult Cardiac Rehabilitation Routine Procedures Performed Operation Date: 09/19/23 13:00 Actual Procedures p Cineradiography w/Routine Exam - David Zhou MD p Cath, Coronaries ONLY (no LV) - David Zhou MD Ordered Studies 09/18/23 14:31 CT cervical spine wo con Stat CT head/brain wo con Stat 09/19/23 12:09 CL Cath Imgs for PACS use only Routine Hospital Course (1) Acute hypoxemic respiratory failure: Oxygen has been weaned off. He is now on room air. Continue treatment of underlying CHF. (2) Acute MA: Appears to be anterior wall. Ejection fraction 45%. Left heart catheterization completed on September 19 revealed evidence of newly occluded LAD, chronically occluded circumflex. Cardiac echo reveals ejection fraction of 45% with anterior wall motion abnormalities. He has been treated with heparin drip for 48 hours. Appreciate cardiology consultation and recommendations (3) Acute combined systolic and diastolic CHF, NYHA class 3: Brisk diuresis induced with parenteral Lasix and metolazone. Metolazone has been discontinued. He is now on oral Lasix. No significant change seen on today's chest x-ray, September 22. (4) CKD (chronic kidney disease), stage IV: Nephrology consultation appreciated. Creatinine is quite high and has trended upward from 5.0-5.9. Parenteral Lasix has been switched to oral dosing. Renal function will need to be followed as an outpatient. Will avoid excessive diuresis (5) Coronary arteriosclerosis: Left heart catheterization completed on September 19. The LAD appears to be freshly occluded. The circumflex artery appears to be chronically occluded. He has completed his heparin transfusion for 48 hours. Continue current medical management (6) Hypothyroidism: Stable. Continue current thyroid supplementation (7) Hypertension: Stable. Continue current medical management (8) Dyslipidemia: Stable. Continue statin therapy (9) Controlled type 2 diabetes mellitus with kidney complication, with long-term current use of insulin: ADA diet. Sliding scale coverage. Basal insulin therapy. Plan Discharge to [facility] September 22 Total Time Total Time Spent Total Time Spent (In Minutes): 45 minutes Discharge Plan Discharge Items Patient Disposition: Transfer Inpatient Rehab Fac Reason For Visit: WEAKNESS, SOB, FALL Discharge Diagnosis: Acute anterior wall MA, acute hypoxic respiratory failure, acute on chronic combined systolic and diastolic CHF Activity: Resume your previous activity Non-emergency contact: Primary Care Provider and Real Estate Salesperson Call non-emergency contact if: you have any medication questions and your symptoms worsen Follow-up/Referrals: Orly Dickson MD [Primary Care Provider] - Diet: Carb Consistent or DM2 and Heart Healthy Addtl Attending Provider Instructions: See primary care provider and caterpillar tractor operator as soon as possible after discharge from [facility] Pending Studies at Discharge: No Stand-Alone Forms: My [facility] Skilled Items Patient informed of condition?: Yes DNR: Yes Discharge Level of Care: Acute rehab Communicable Disease: No Discharge Prognosis: Stable Lines: None Urinary Catheter: No Medications and DC Order Prescriptions: New aspirin 81 mg Tablet,Delayed Release (Dr/Ec) 81 mg PO QAM Qty: 0 0RF metoprolol succinate 50 mg Tablet Extended Release 24 Hr 100 mg PO QAM Qty: 0 0RF furosemide 40 mg Tablet 40 mg PO BID17 Qty: 0 0RF clopidogrel 75 mg Tablet 75 mg PO QAM Qty: 0 0RF atorvastatin 40 mg Tablet 80 mg PO QAM Qty: 0 0RF nitroglycerin [Nitro-Dur] 0.4 mg/hr Patch 24 Hour 1 patch transdermal QAM Qty: 0 0RF Continued nystatin 100,000 unit/gram cream 1 applic TOP BID PRN (Reason: Itching) Qty: 30 0RF metoprolol succinate 50 mg tablet extended release 24 hr 75 mg PO HS Qty: 135 3RF Rx Instructions: 50 mg PO Take 1 1/2 tablets at bedtime ; (DME) BD SafetyGlide Insulin Syringe 0.3 mL 31 gauge x 15/64" syringe MISCELLANEOUS Qty: 700 3RF Rx Instructions: Use 7 times daily clonidine HCl 0.1 mg tablet 0.1 mg PO HS Qty: 90 3RF (DME) pen needle, diabetic [BD Ultra-Fine Mini Pen Needle] 31 gauge x 3/16" needle MISCELLANEOUS Qty: 200 3RF Rx Instructions: use 2 daily fluticasone propionate [Flonase Allergy Relief] 50 mcg/actuation spray,suspension 1 spray intranasal BID Qty: 3 5RF alprazolam 0.5 mg tablet 0.5 mg PO DAILY PRN (Reason: anxiety) Qty: 20 5RF tramadol 50 mg tablet 50 mg PO BID PRN (Reason: pain) 30 Days Qty: 60 5RF ferrous sulfate 140 mg (45 mg iron) tablet extended release 45 mg PO BID finasteride [Proscar] 5 mg tablet 5 mg PO DAILY Qty: 90 3RF tamsulosin 0.4 mg capsule 0.8 mg PO DAILY Qty: 180 3RF Heplisav-B (PF) 20 mcg/0.5 mL syringe 0.5 ml IM Q30D Qty: 2.5 0RF Venofer 200 mg iron/10 mL solution 200 mg IV DAILY Rx Instructions: administer over 30 mins Novolin R Regular U100 Insulin 100 unit/mL solution See Rx Instructions SQ TIDM Qty: 40 5RF Rx Instructions: patient states takes 10-11 units for breakfast, 5-6 units for lunch, 13-22 units for supper TDD 40 units FILL WHEN REQUESTED Heplisav-B (PF) 20 mcg/0.5 mL syringe 0.5 ml IM Q30D Qty: 2.5 0RF Aranesp (in polysorbate) 60 mcg/mL solution 60 mcg subcut .COMPLEX Qty: 4 0RF Rx Instructions: 60 mcg subcutaneously q 2 weeks, hold for hgb >11; (DME) FreeStyle Ritchie 14 Day Sensor Kit MISCELLANEOUS (DME) FreeStyle Ritchie 14 Day [place] Misc MISCELLANEOUS furosemide 40 mg tablet 40 mg PO QAM pantoprazole 40 mg tablet,delayed release (DR/EC) 40 mg PO QAM sildenafil [Viagra] 100 mg tablet 100 mg PO ONCE PRN (Reason: sexual activity) Rx Instructions: administer 30 minutes to 4 hours before activity triamcinolone acetonide [Triderm] 0.1 % cream 1 applic TOP BID PRN (Reason: Itching) levothyroxine [Synthroid] 50 mcg tablet 50 mcg PO QAM Rx Instructions: 50 mcg PO TAKE ON AN EMPTY STOMACH WITH A FULL GLASS OF WATER, WAIT 30 MINUT ES TO EAT, DRINK, OR TAKE MEDICATIONS; ezetimibe [Zetia] 10 mg tablet 10 mg PO QPM insulin glargine [Basaglar KwikPen U-100 Insulin] 100 unit/mL (3 mL) insulin pen 27 unit subcut QPM tramadol 50 mg tablet 50 mg PO Q8H PRN (Reason: pain) Qty: 10 0RF Discontinued simvastatin 40 mg tablet 40 mg PO HS Qty: 90 3RF Discharge Orders: Discharge Order- CHF (Routine); Ordered 09/22/23 Ordered By: Gregory Marc Admission Data Admit Date/Time: 09/18/23 16:52 Attending Provider: Gregory Marc Admit Provider: Sachin Fernández Primary Care Provider: Orly Dickson V. Other Providers: Fortino Blackwood; Hesham Blake; Cameron Miranda; Greg Arrington; Jorge Angulo; Floyd Abad; Memo Motley Jr; Edgar Bermudez; Rocio Kulkarni; Araseli Ramsey; David Winters; David Zhou; Gregory Geiger; Renetta Noe; Samreen Foy; Anthony Garcia; Jacinto Torres; Jose Morales; Kristen Reis; [facility] Coding Level of Care Code 20831 INP/OBS DISCH >30 MIN Diagnoses Acute hypoxemic respiratory failure J96.01 Acute non-ST elevation myocardial infarction (NSTEMI) I21.4 Myocardial infarction type: non-ST elevation myocardial infarction Acute combined systolic and diastolic CHF, 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 CKD (chronic kidney disease), stage IV N18.4 Coronary arteriosclerosis I25.10 Hypothyroidism, unspecified type E03.9 Hypothyroidism type: unspecified Hypertension secondary to other renal disorders I15.1; N28.89 Hypertension type: secondary to other renal disorders Dyslipidemia E78.5 Controlled type 2 diabetes mellitus with kidney complication, with long-term current use of insulin E11.29; Z79.4
== END 2023-09-22 16:53 | DRG 280 ==
LOC: ED 14:17 → SUATTDRO 16:52 → 2S 16:52
PROC: CLB.CCO (2023-09-19 13:00)

== ENCOUNTER 2023-10-03 12:17 | Inpatient (IN) ==
[2023-10-03] MEDS ORDERED: METOPROLOL TARTRATE 1 MG/ML VIAL IV ONE (12:40)
[2023-10-03] MEDS ORDERED: MIDODRINE HCL 2.5 MG TAB PO STA (12:44)
[2023-10-03] MEDS ORDERED: METOPROLOL TARTRATE 1 MG/ML VIAL IV STA ×3 (12:44→13:20)
[2023-10-03] MEDS ORDERED: SODIUM CHLORIDE 0.9% 250 ML IV ONE ×2 (12:44→13:08)
--- NOTE | 2023-10-03 12:53 | Emergency Department Note ---
Impression & Plan End stage renal disease, Elevated troponin, Hypotension, High anion gap metabolic acidosis, Atrial fibrillation with rapid ventricular response, Atrial fibrillation, new onset, Ischemic cardiomyopathy, COVID-19, High blood urea nitrogen (BUN) ED Provider Note NAME: LARISSA LORENZO AGE: 83 SEX: M ARRIVES VIA: Walk-In INFORMANT: Patient ED PROVIDER(S): Isaac Boo MD CHIEF COMPLAINT: New A-fib with RVR, hypotensive in preop, referred PLAN: Disposition: Admit MEDICAL DECISION MAKING: The patient is a pleasant 83-year-old gentleman with a past medical history of CKD, hypertension, hyperlipidemia, iron deficiency anemia, hypothyroidism, BPH, recent admission to this facility for acute hypoxic respiratory failure secondary to acute CA with new ischemic cardiomyopathy with EF of 45% who presents to the emergency department referred from preop for new onset A-fib with RVR and hypotension in addition to testing positive for COVID-19. The patient presents in the setting of worsening renal function following his admission to this facility for his an STEMI where his creatinine was 5 and this was monitored closely and was noted to have worsened to a creatinine of 7 yesterday and so upon consultation with nephrology decision was made to have outpatient tunneled catheter placed today to then begin dialysis upon returning back to his rehab facility. Of note, review of [facility] records demonstrates his recent catheterization demonstrate LAD occlusion and severe CAD where medical management was pursued as he was not considered a candidate at the time for more aggressive intervention. Per records, the patient is DNI. Upon my discussion with the patient at the bedside he did express to this provider that he would not want CPR. Of note however while the patient did appear to have full decision-making capacity his BUN did return elevated at 200 and so this would require further clarification. On arrival to the emergency department the patient was noted to be ill- appearing, Temp 35.7, with heart rate in the 160s and atrial fibrillation with RVR with blood pressure 70s/40s though mentating. The patient was treated initially with IV Lopressor which did result in improved rate control to the 130s and gradual improvement in his blood pressure to the 80s/50s. However RVR would persist and so was given a total of Lopressor 5mg IV x 3. The patient's 5mg of midodrine was also provided. The patient's heart rate would still remain variable from the 90s up to the 130s with blood pressure consistently correlating with his rate where it would improve with rate control and decline when RVR ensued. Thus, diltiazem drip initiated without bolus however during this his RVR did return and so a low-dose 5 mg bolus was administered and the patient subsequently had spontaneous cardioversion to normal sinus rhythm for approximately 60 seconds before again returning to atrial fibrillation with RVR. The patient subsequently would have recurrent spontaneous cardioversion's [id number]. The patient's chest x-ray demonstrated cardiomegaly with pulmonary vascular congestion with small pleural effusions with bibasilar consolidation. WBC within normal limits. H/H similar to prior. Platelets within normal limits. There is no left shift. Chemistry demonstrates metabolic acidosis with anion gap of 26 and bicarbonate of 9 which correlates to a VBG with a pH of 7.06. The patient's potassium was 4.5, within normal limits. His BUN had increased significantly to 205 with a creatinine of 7.95. Lactic acid was 1.7, within normal limits. Phosphorus was elevated 9.6. Magnesium 1.9 within normal limits. LFTs were unremarkable. The patient's high-sensitivity troponin was in the 400s which is lower than his recent admission for his NSTEMI and in the setting of his end-stage renal disease. Procalcitonin is 1.7, nonspecific in the setting of the patient end-stage renal disease however given his hypotension empiric cefepime was ordered. UA without evidence of infection. A Danielson catheter was placed and the patient did exhibit continued ability to urinate. He was given a total of 1 L of normal saline given in the form of 250 cc boluses x 4 over the course of his ED management. 30 cc/kg was deferred given the patient's end-stage renal disease. Given the patient's metabolic acidosis amp of bicarb was ordered in addition to sodium bicarb drip. Given new onset atrial fibrillation with high [id number] score anticoagulation will be indicated however will defer until placement of dialysis access. Case was d/w Dr. Rosales, [facility] hospitalist who will evaluate the patient for admission. Requests consultation with nephrology, cardiology and ICU prior to admission. Case was discussed with Dr. Miranda, [facility] cardiology. Can initiate amiodarone at this time which will provide rate control and likely less risk of hypotension. Per his review of the patient's record the patient can remain here for further management stabilization as given his severe CAD he would not be a candidate for more aggressive treatment for his CAD in his current state. Case was discussed with Dr. Cid, [facility] Nephrology. He agrees that patient will require hemodialysis. He does not feel transfer is necessary for CVVH at this time. He will require dialysis access. He will begin to arrange for dialysis. Case was discussed with Dr. Rosario, ICU private investigator surveillance. Requests discussion with vascular surgery who was going to place his tunneled catheter today to see if they would be able to do this in order to have more permanent access. If they are not available he will be available to place access. Case was discussed with Anupama Crespo, Vascular surgery PAC with Dr. Godinez. Given the patient's current clinical status recommends that temporary dialysis access be placed and they can reassess placement of tunneled catheter when the patient is more stable as they would be concern for placing the patient under sedation for tunnel catheter at this time. Dr. Rosario was updated and he did arrive to the bedside to place a dialysis catheter. Appreciate all consultations/recommendations and assistance. Admitting team was updated. Further management per admitting team. Of note, I did review the patient's critical condition with his daughter over the phone. She confirms that she was aware that he did not want to be intubated and so this is consistent with his DNI status. She was not clear however about his wishes regarding CPR. I did explain that he did express to me that he would not want chest compressions but would require further clarification given the patient's critical illness though he did appear to have medical decision-making capacity at the time. Triage Nursing notes reviewed and agree them. Prior/external medical records reviewed Vital Signs: reviewed Differential diagnosis: Infection, dehydration, metabolic abnormality, hypo/hyperglycemia, electrolyte disturbance, anemia, hypoxia, cardiac sources, intracerebral event, toxicologic, neurologic, as well as other pathologies. ER treatment provided: See below. Diagnostics interpreted by me: ECG: Atrial fibrillation with RVR, 146 bpm, LVH with QRS widening, no overt ST elevation or reciprocal depression, morphology similar to prior. QTc 442, QRS 130 Cardiac Monitoring: An order for continuous cardiac monitoring was placed and demonstrated atrial fibrillation with RVR, 146 bpm Laboratory studies: See below Imaging studies: See below [facility]ation([facility] [place] [facility] Dr. Miranda, [place] cardiology Dr. Rosario, [place] ICU HPI: The patient is a pleasant 83-year-old gentleman with a past medical history of CKD, hypertension, hyperlipidemia, iron deficiency anemia, hypothyroidism, BPH, recent admission to this facility for acute hypoxic respiratory failure secondary to acute CA with new ischemic cardiomyopathy with EF of 45% who presents to the emergency department referred from preop for new onset A-fib with RVR and hypotension in addition to testing positive for COVID-19. The patient presents in the setting of worsening renal function following his admission to this facility for his an STEMI where his creatinine was 5 and this was monitored closely and was noted to have worsened to a creatinine of 7 yesterday and so upon consultation with nephrology decision was made to have outpatient tunneled catheter placed today to then begin dialysis upon returning back to his rehab facility. Of note, review of [facility] records demonstrates his recent catheterization demonstrate LAD occlusion and severe CAD where medical management was pursued as he was not considered a candidate at the time for more aggressive intervention. Per records, the patient is DNI. Upon my discussion with the patient at the bedside he did express to this provider that he would not want CPR. Of note however while the patient did appear to have full decision-making capacity his BUN did return elevated at 200 and so this would require further clarification. ROS: See above HPI for pertinent positives & negatives. A total of 10 systems reviewed and were otherwise negative. VITALS:See Below PHYSICAL EXAMINATION: GENERAL: Awake, alert, ill-appearing, in no distress HENT: Normocephalic, atraumatic. Oropharynx with dry mucous membranes and otherwise unremarkable. EYES: Normal conjunctiva. Sclera non-icteric. NECK: Supple. No nuchal rigidity. FROM. No JVD. RESPIRATORY: Diminished breath sounds at the bases and otherwise clear. CARDIAC: Tachycardic rate, irregular rhythm. Extremities warm and well perfused. Pulses equal. ABDOMEN: Soft, non-distended. No tenderness to palpation. No rebound or guarding. No masses. RECTAL: Deferred. MUSCULOSKELETAL: Chest examination reveals no tenderness. The back is symmetrical on inspection without obvious abnormality. There is no CVA tenderness to palpation. No joint edema. LOWER EXTREMITIES: Calves are equal size bilaterally and non-tender. No edema. No discoloration. NEURO: Normal sensorium. No sensory or motor deficits noted. SKIN: Mild pallor. No rash or jaundice noted. ED COURSE: Critical Care: I have personally spent greater than 125 minutes of critical care time in the direct management of this patient. This includes bedside care, interpretation of diagnostic studies, and testing, discussion with consultants, patient, and family members, and other required patient management activities. This 125 minutes is in excess of all separately billable procedures. 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 CORDOVA CKD V Controlled type 2 diabetes mellitus with kidney complication, with long-term current use of insulin Hgb A1C 09/2022 was 7.7 Coronary arteriosclerosis S/p angioplasty 1990 (no stent or hx of CABG) Cyst of kidney, acquired Dyslipidemia Hypertension FOLLOWED BY DR. RAYO Hypothyroidism Obesity, Class II, BMI 35-39.9 Surgical History History of total right knee replacement H/O eye surgery RT/LEFT EYE FOR GLAUCOMA History of cataract surgery LEFT/RT History of total left knee replacement (TKR) X 2 History of lithotripsy a couple times History of tonsillectomy History of angioplasty at the age of 51 History of surgery scrotal hernia repair History of exploratory laparotomy History of umbilical hernia repair History of colonoscopy History of ear surgery Tympanic membrane repair--per pt a couple times Family History Father Cancer of kidney Hypertension Cardiac disorder Family/Other Cancer of kidney Bone cancer Mother Bone cancer Cardiac disorder Hypertension Other No family history of adverse response to anesthesia No family history of bleeding disorder Social History Smoking Status: Never smoker Tobacco Type: Cigarettes Second Hand Exposure: No; Do You Dip or Chew Tobacco: No; Hx Alcohol Use: No Hx Substance Use: No Preferred Language: Estonian Communication Ability: Effective Visual Impairment: Limited Hearing Ability: Normal Strategic Buyer Required: No Beliefs That Will Affect Care: None marital status: / Current Living Situation: Alone current occupational status: employed 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 How many Children do You have: 1 How many Children do You have Comment: Stepdaughter, 2 grandchildren Feels Safe at Home: Yes Diet: regular caffeine: Yes during the past year weight has: remained stable Dental Care, Regularly: Yes Physical Activity Frequency: 5-6 Times per Week Seatbelt Use: always Sunscreen Use: No Assistive Devices: Cane, Glasses and Walker Allergies Allergies Allergy/AdvReac Type Severity Reaction Status Date / Time latex Allergy Mild SKIN Verified 10/03/23 14:52 IRRITATION Home Meds Home Medications Medication Instructions Recorded Confirmed flash glucose scanning reader 07/19/20 10/03/23 (FreeStyle [place]) flash glucose sensor (FreeStyle 07/19/20 10/03/23 [place] [employer] [place] Sensor kit) furosemide 40 mg tablet 40 mg PO QAM 11/29/22 10/03/23 pantoprazole 40 mg tablet,delayed 40 mg PO QAM 11/29/22 10/03/23 release ezetimibe 10 mg tablet (Zetia) 10 mg PO QPM 04/13/23 10/03/23 insulin glargine 100 unit/mL (3 27 unit subcut QPM 04/13/23 10/03/23 mL) subcutaneous pen (Basaglar KwikPen U-100 Insulin) levothyroxine 50 mcg tablet 50 mcg PO QAM 04/13/23 10/03/23 (Synthroid) sildenafil 100 mg tablet (Viagra) 100 mg PO ONCE PRN sexual activity 04/13/23 10/03/23 triamcinolone acetonide 0.1 % 1 applic topical BID PRN Itching 04/13/23 10/03/23 topical cream (Triderm) ferrous sulfate 140 mg (45 mg 45 mg PO BID 05/23/23 10/03/23 iron) tablet,extended release Previous Rx's Medication Instructions Recorded nystatin 100,000 unit/gram topical 1 applic topical BID PRN Itching 06/13/22 cream #30 grams insulin regular human 100 unit/mL See Rx Instructions subcut TIDM 12/04/22 injection solution (Novolin R #40 mL Regular U-100 Insulin) metoprolol succinate 50 mg 75 mg (1.5 x 50 mg) PO HS #135 tabs 01/09/23 tablet,extended release 24 hr insulin syringe,safetyneedle 0.3 #700 ea 01/15/23 mL 31 gauge x 15/64" (BD SafetyGlide Insulin Syringe) clonidine HCl 0.1 mg tablet 0.1 mg PO HS #90 tabs 03/16/23 pen needle, diabetic 31 gauge x #200 ea 04/27/23 3/16" (BD Ultra-Fine Mini Pen Needle) tramadol 50 mg tablet 50 mg PO Q8H PRN pain #10 tabs 07/03/23 fluticasone propionate 50 1 spray intranasal BID #3 BTLS 07/16/23 mcg/actuation nasal spray,suspension (Flonase Allergy Relief) hepatitis B vaccine 20 mcg/0.5 0.5 ml IM Q30D 2 doses #2.5 mL 07/26/23 mL-adjuvant CpG 1018 (PF) IM syringe (Heplisav-B (PF)) alprazolam 0.5 mg tablet 0.5 mg PO DAILY PRN anxiety #20 08/08/23 tabs iron sucrose 200 mg iron/10 mL 200 mg (10 mL) IV DAILY 5 doses 08/29/23 intravenous solution (Venofer) tramadol 50 mg tablet 50 mg PO BID PRN pain 30 days #60 09/04/23 tabs finasteride 5 mg tablet (Proscar) 5 mg PO DAILY #90 tabs 09/06/23 tamsulosin 0.4 mg capsule 0.8 mg (2 x 0.4 mg) PO DAILY #180 09/06/23 caps darbepoetin jude in polysorbat 60 60 mcg subcut .COMPLEX #4 mL 09/12/23 mcg/mL in polysorbate injection (Aranesp) hepatitis B vaccine 20 mcg/0.5 0.5 ml IM Q30D 2 doses #2.5 mL 09/12/23 mL-adjuvant CpG 1018 (PF) IM syringe (Heplisav-B (PF)) aspirin 81 mg tablet,delayed 81 mg PO QAM #0 tabs 09/22/23 release atorvastatin 40 mg tablet 80 mg (2 x 40 mg) PO QAM #0 tabs 09/22/23 clopidogrel 75 mg tablet 75 mg PO QAM #0 tabs 09/22/23 furosemide 40 mg tablet 40 mg PO BID17 #0 tabs 09/22/23 metoprolol succinate 50 mg 100 mg (2 x 50 mg) PO QAM #0 tabs 09/22/23 tablet,extended release 24 hr nitroglycerin 0.4 mg/hr 1 patch transdermal QAM #0 ea 09/22/23 transdermal 24 hour patch (Nitro-Dur) Results & Data (ED) Vital Signs Vital Signs - 24 hr 10/03/23 12:34 10/03/23 12:35 10/03/23 12:37 Temperature Temperature Source Pulse Rate 155 H 144 H 150 H Pulse Rate [Apical] Pulse Rate from SpO2 Sensor Respiratory Rate 22 Respiratory Effort / Characteristics Respiratory Depth Respiratory Pattern Blood Pressure Blood Pressure [Right Arm] Blood Pressure Mean Blood Pressure Mean [Right Arm] Blood Pressure Position Blood Pressure Position [Right Arm] Pulse Oximetry Oxygen Delivery Method Sepsis Recent Fever Within 48 Hours Sepsis New/Unexplained Change in Mental Status Sepsis Action Taken by Nursing 10/03/23 12:40 10/03/23 12:42 10/03/23 12:45 Temperature Temperature Source Pulse Rate 161 H 160 H 151 H Pulse Rate [Apical] Pulse Rate from SpO2 Sensor Respiratory Rate 19 18 20 Respiratory Effort / Characteristics Non-Labored Spontaneous Respiratory Depth Normal Respiratory Pattern Regular Blood Pressure 74/42 L Blood Pressure [Right Arm] Blood Pressure Mean 52 Blood Pressure Mean [Right Arm] Blood Pressure Position Sitting Blood Pressure Position [Right Arm] Pulse Oximetry 93 Oxygen Delivery Method Room Air Sepsis Recent Fever Within 48 Hours No Sepsis New/Unexplained Change in Mental Status N/A Sepsis Action Taken by Nursing Physician Notified 10/03/23 12:48 10/03/23 12:48 10/03/23 12:50 Temperature Temperature Source Pulse Rate 140 H 139 H Pulse Rate [Apical] Pulse Rate from SpO2 Sensor Respiratory Rate 21 23 Respiratory Effort / Characteristics Respiratory Depth Respiratory Pattern Blood Pressure 75/42 L Blood Pressure [Right Arm] Blood Pressure Mean 47 Blood Pressure Mean [Right Arm] Blood Pressure Position Blood Pressure Position [Right Arm] Pulse Oximetry Oxygen Delivery Method Sepsis Recent Fever Within 48 Hours Sepsis New/Unexplained Change in Mental Status Sepsis Action Taken by Nursing 10/03/23 12:51 10/03/23 12:51 10/03/23 12:53 Temperature Temperature Source Pulse Rate 139 H Pulse Rate [Apical] Pulse Rate from SpO2 Sensor Respiratory Rate 25 H Respiratory Effort / Characteristics Respiratory Depth Respiratory Pattern Blood Pressure 73/53 L 86/56 L Blood Pressure [Right Arm] Blood Pressure Mean 61 63 Blood Pressure Mean [Right Arm] Blood Pressure Position Blood Pressure Position [Right Arm] Pulse Oximetry Oxygen Delivery Method Sepsis Recent Fever Within 48 Hours Sepsis New/Unexplained Change in Mental Status Sepsis Action Taken by Nursing 10/03/23 12:53 10/03/23 12:55 10/03/23 12:59 Temperature Temperature Source Pulse Rate 95 H 94 H 140 H Pulse Rate [Apical] Pulse Rate from SpO2 Sensor Respiratory Rate 28 H 15 20 Respiratory Effort / Characteristics Respiratory Depth Respiratory Pattern Blood Pressure Blood Pressure [Right Arm] Blood Pressure Mean Blood Pressure Mean [Right Arm] Blood Pressure Position Blood Pressure Position [Right Arm] Pulse Oximetry Oxygen Delivery Method Sepsis Recent Fever Within 48 Hours Sepsis New/Unexplained Change in Mental Status Sepsis Action Taken by Nursing 10/03/23 12:59 10/03/23 13:00 10/03/23 13:05 Temperature Temperature Source Pulse Rate 127 H 133 H Pulse Rate [Apical] Pulse Rate from SpO2 Sensor 124 H Respiratory Rate 19 19 Respiratory Effort / Characteristics Respiratory Depth Respiratory Pattern Blood Pressure 77/64 L Blood Pressure [Right Arm] Blood Pressure Mean 71 Blood Pressure Mean [Right Arm] Blood Pressure Position Blood Pressure Position [Right Arm] Pulse Oximetry 99 Oxygen Delivery Method Sepsis Recent Fever Within 48 Hours Sepsis New/Unexplained Change in Mental Status Sepsis Action Taken by Nursing 10/03/23 13:10 10/03/23 13:15 10/03/23 13:17 Temperature Temperature Source Pulse Rate 128 H 82 133 H Pulse Rate [Apical] Pulse Rate from SpO2 Sensor 128 H 84 138 H Respiratory Rate 18 18 21 Respiratory Effort / Characteristics Respiratory Depth Respiratory Pattern Blood Pressure Blood Pressure [Right Arm] Blood Pressure Mean Blood Pressure Mean [Right Arm] Blood Pressure Position Blood Pressure Position [Right Arm] Pulse Oximetry 99 98 100 Oxygen Delivery Method Sepsis Recent Fever Within 48 Hours Sepsis New/Unexplained Change in Mental Status Sepsis Action Taken by Nursing 10/03/23 13:17 10/03/23 13:20 10/03/23 13:20 Temperature Temperature Source Pulse Rate 131 H 138 H Pulse Rate [Apical] Pulse Rate from SpO2 Sensor 129 H Respiratory Rate 19 Respiratory Effort / Characteristics Respiratory Depth Respiratory Pattern Blood Pressure 89/68 L 89/68 L Blood Pressure [Right Arm] Blood Pressure Mean 72 Blood Pressure Mean [Right Arm] Blood Pressure Position Blood Pressure Position [Right Arm] Pulse Oximetry 100 Oxygen Delivery Method Sepsis Recent Fever Within 48 Hours Sepsis New/Unexplained Change in Mental Status Sepsis Action Taken by Nursing 10/03/23 13:25 10/03/23 13:30 10/03/23 13:31 Temperature Temperature Source Pulse Rate 132 H 78 Pulse Rate [Apical] Pulse Rate from SpO2 Sensor 137 H 128 H Respiratory Rate 17 19 Respiratory Effort / Characteristics Respiratory Depth Respiratory Pattern Blood Pressure 90/64 L Blood Pressure [Right Arm] Blood Pressure Mean 72 Blood Pressure Mean [Right Arm] Blood Pressure Position Blood Pressure Position [Right Arm] Pulse Oximetry 99 98 Oxygen Delivery Method Sepsis Recent Fever Within 48 Hours Sepsis New/Unexplained Change in Mental Status Sepsis Action Taken by Nursing 10/03/23 13:31 10/03/23 13:35 10/03/23 13:35 Temperature Temperature Source Pulse Rate 87 81 Pulse Rate [Apical] Pulse Rate from SpO2 Sensor 88 112 H Respiratory Rate 18 18 Respiratory Effort / Characteristics Respiratory Depth Respiratory Pattern Blood Pressure 94/69 L Blood Pressure [Right Arm] Blood Pressure Mean 77 Blood Pressure Mean [Right Arm] Blood Pressure Position Blood Pressure Position [Right Arm] Pulse Oximetry 99 98 Oxygen Delivery Method Sepsis Recent Fever Within 48 Hours Sepsis New/Unexplained Change in Mental Status Sepsis Action Taken by Nursing 10/03/23 13:36 10/03/23 13:40 10/03/23 13:40 Temperature Temperature Source Pulse Rate 123 H 90 Pulse Rate [Apical] Pulse Rate from SpO2 Sensor Respiratory Rate 20 Respiratory Effort / Characteristics Respiratory Depth Respiratory Pattern Blood Pressure 94/67 L Blood Pressure [Right Arm] Blood Pressure Mean 78 Blood Pressure Mean [Right Arm] Blood Pressure Position Blood Pressure Position [Right Arm] Pulse Oximetry 93 Oxygen Delivery Method Room Air Sepsis Recent Fever Within 48 Hours Sepsis New/Unexplained Change in Mental Status Sepsis Action Taken by Nursing 10/03/23 13:40 10/03/23 13:45 10/03/23 13:45 Temperature Temperature Source Pulse Rate 85 140 H Pulse Rate [Apical] Pulse Rate from SpO2 Sensor 85 135 H Respiratory Rate 19 18 Respiratory Effort / Characteristics Respiratory Depth Respiratory Pattern Blood Pressure 94/70 L Blood Pressure [Right Arm] Blood Pressure Mean 79 Blood Pressure Mean [Right Arm] Blood Pressure Position Blood Pressure Position [Right Arm] Pulse Oximetry 99 98 Oxygen Delivery Method Sepsis Recent Fever Within 48 Hours Sepsis New/Unexplained Change in Mental Status Sepsis Action Taken by Nursing 10/03/23 13:50 10/03/23 13:50 10/03/23 13:54 Temperature Temperature Source Pulse Rate 141 H Pulse Rate [Apical] 144 H Pulse Rate from SpO2 Sensor 134 H Respiratory Rate 22 18 Respiratory Effort / Characteristics Non-Labored Spontaneous Respiratory Depth Normal Respiratory Pattern Blood Pressure 97/71 L Blood Pressure [Right Arm] 105/70 Blood Pressure Mean 84 Blood Pressure Mean [Right Arm] 81 Blood Pressure Position Blood Pressure Position [Right Arm] Lying Pulse Oximetry 100 100 Oxygen Delivery Method Room Air Sepsis Recent Fever Within 48 Hours Sepsis New/Unexplained Change in Mental Status Sepsis Action Taken by Nursing 10/03/23 13:54 10/03/23 13:54 10/03/23 13:55 Temperature Temperature Source Pulse Rate 141 H Pulse Rate [Apical] Pulse Rate from SpO2 Sensor 101 H Respiratory Rate 15 Respiratory Effort / Characteristics Respiratory Depth Respiratory Pattern Blood Pressure 106/71 105/70 Blood Pressure [Right Arm] Blood Pressure Mean 76 82 Blood Pressure Mean [Right Arm] Blood Pressure Position Blood Pressure Position [Right Arm] Pulse Oximetry 100 Oxygen Delivery Method Sepsis Recent Fever Within 48 Hours Sepsis New/Unexplained Change in Mental Status Sepsis Action Taken by Nursing 10/03/23 13:55 10/03/23 14:00 10/03/23 14:00 Temperature Temperature Source Pulse Rate 133 H 87 Pulse Rate [Apical] Pulse Rate from SpO2 Sensor 136 H 89 Respiratory Rate 16 20 Respiratory Effort / Characteristics Respiratory Depth Respiratory Pattern Blood Pressure 96/67 L Blood Pressure [Right Arm] Blood Pressure Mean 74 Blood Pressure Mean [Right Arm] Blood Pressure Position Blood Pressure Position [Right Arm] Pulse Oximetry 99 96 Oxygen Delivery Method Sepsis Recent Fever Within 48 Hours Sepsis New/Unexplained Change in Mental Status Sepsis Action Taken by Nursing 10/03/23 14:05 10/03/23 14:05 10/03/23 14:09 Temperature Temperature Source Pulse Rate 88 134 H Pulse Rate [Apical] Pulse Rate from SpO2 Sensor 88 Respiratory Rate 17 Respiratory Effort / Characteristics Respiratory Depth Respiratory Pattern Blood Pressure 90/66 L Blood Pressure [Right Arm] Blood Pressure Mean 73 Blood Pressure Mean [Right Arm] Blood Pressure Position Blood Pressure Position [Right Arm] Pulse Oximetry 97 Oxygen Delivery Method Sepsis Recent Fever Within 48 Hours Sepsis New/Unexplained Change in Mental Status Sepsis Action Taken by Nursing 10/03/23 14:10 10/03/23 14:10 10/03/23 14:15 Temperature Temperature Source Pulse Rate 117 H Pulse Rate [Apical] Pulse Rate from SpO2 Sensor 125 H Respiratory Rate 19 Respiratory Effort / Characteristics Respiratory Depth Respiratory Pattern Blood Pressure 90/71 L 80/58 L Blood Pressure [Right Arm] Blood Pressure Mean 78 66 Blood Pressure Mean [Right Arm] Blood Pressure Position Blood Pressure Position [Right Arm] Pulse Oximetry 98 Oxygen Delivery Method Sepsis Recent Fever Within 48 Hours Sepsis New/Unexplained Change in Mental Status Sepsis Action Taken by Nursing 10/03/23 14:15 10/03/23 14:18 10/03/23 14:18 Temperature Temperature Source Pulse Rate 132 H 114 H Pulse Rate [Apical] Pulse Rate from SpO2 Sensor 130 H 106 H Respiratory Rate 19 19 Respiratory Effort / Characteristics Respiratory Depth Respiratory Pattern Blood Pressure 85/58 L Blood Pressure [Right Arm] Blood Pressure Mean 62 Blood Pressure Mean [Right Arm] Blood Pressure Position Blood Pressure Position [Right Arm] Pulse Oximetry 98 97 Oxygen Delivery Method Sepsis Recent Fever Within 48 Hours Sepsis New/Unexplained Change in Mental Status Sepsis Action Taken by Nursing 10/03/23 14:20 10/03/23 14:20 10/03/23 14:25 Temperature Temperature Source Pulse Rate 67 116 H Pulse Rate [Apical] Pulse Rate from SpO2 Sensor 68 120 H Respiratory Rate 18 24 Respiratory Effort / Characteristics Respiratory Depth Respiratory Pattern Blood Pressure 83/56 L Blood Pressure [Right Arm] Blood Pressure Mean 60 Blood Pressure Mean [Right Arm] Blood Pressure Position Blood Pressure Position [Right Arm] Pulse Oximetry 98 100 Oxygen Delivery Method Sepsis Recent Fever Within 48 Hours Sepsis New/Unexplained Change in Mental Status Sepsis Action Taken by Nursing 10/03/23 14:25 10/03/23 14:30 10/03/23 14:30 Temperature Temperature Source Pulse Rate 121 H Pulse Rate [Apical] Pulse Rate from SpO2 Sensor 106 H Respiratory Rate 17 Respiratory Effort / Characteristics Respiratory Depth Respiratory Pattern Blood Pressure 91/64 L 91/56 L Blood Pressure [Right Arm] Blood Pressure Mean 74 65 Blood Pressure Mean [Right Arm] Blood Pressure Position Blood Pressure Position [Right Arm] Pulse Oximetry 100 Oxygen Delivery Method Sepsis Recent Fever Within 48 Hours Sepsis New/Unexplained Change in Mental Status Sepsis Action Taken by Nursing 10/03/23 14:35 10/03/23 14:35 10/03/23 14:37 Temperature Temperature Source Pulse Rate 105 H Pulse Rate [Apical] Pulse Rate from SpO2 Sensor 112 H Respiratory Rate 18 Respiratory Effort / Characteristics Respiratory Depth Respiratory Pattern Blood Pressure 90/65 L 92/58 L Blood Pressure [Right Arm] Blood Pressure Mean 74 68 Blood Pressure Mean [Right Arm] Blood Pressure Position Blood Pressure Position [Right Arm] Pulse Oximetry 98 Oxygen Delivery Method Sepsis Recent Fever Within 48 Hours Sepsis New/Unexplained Change in Mental Status Sepsis Action Taken by Nursing 10/03/23 14:37 10/03/23 14:40 10/03/23 14:41 Temperature Temperature Source Pulse Rate 77 73 Pulse Rate [Apical] Pulse Rate from SpO2 Sensor 75 100 H Respiratory Rate 17 18 Respiratory Effort / Characteristics Respiratory Depth Respiratory Pattern Blood Pressure 86/53 L Blood Pressure [Right Arm] Blood Pressure Mean 60 Blood Pressure Mean [Right Arm] Blood Pressure Position Blood Pressure Position [Right Arm] Pulse Oximetry 99 96 Oxygen Delivery Method Sepsis Recent Fever Within 48 Hours Sepsis New/Unexplained Change in Mental Status Sepsis Action Taken by Nursing 10/03/23 14:41 10/03/23 14:43 10/03/23 14:43 Temperature Temperature Source Pulse Rate 77 119 H Pulse Rate [Apical] Pulse Rate from SpO2 Sensor 77 123 H Respiratory Rate 20 16 Respiratory Effort / Characteristics Respiratory Depth Respiratory Pattern Blood Pressure 93/48 L Blood Pressure [Right Arm] Blood Pressure Mean 57 Blood Pressure Mean [Right Arm] Blood Pressure Position Blood Pressure Position [Right Arm] Pulse Oximetry 100 99 Oxygen Delivery Method Sepsis Recent Fever Within 48 Hours Sepsis New/Unexplained Change in Mental Status Sepsis Action Taken by Nursing 10/03/23 14:45 10/03/23 14:45 10/03/23 14:47 Temperature Temperature Source Pulse Rate 74 Pulse Rate [Apical] Pulse Rate from SpO2 Sensor 76 Respiratory Rate 18 Respiratory Effort / Characteristics Respiratory Depth Respiratory Pattern Blood Pressure 89/55 L 94/68 L Blood Pressure [Right Arm] Blood Pressure Mean 60 71 Blood Pressure Mean [Right Arm] Blood Pressure Position Blood Pressure Position [Right Arm] Pulse Oximetry 98 Oxygen Delivery Method Sepsis Recent Fever Within 48 Hours Sepsis New/Unexplained Change in Mental Status Sepsis Action Taken by Nursing 10/03/23 14:47 10/03/23 14:50 10/03/23 14:50 Temperature Temperature Source Pulse Rate 122 H 124 H Pulse Rate [Apical] Pulse Rate from SpO2 Sensor 116 H 119 H Respiratory Rate 18 17 Respiratory Effort / Characteristics Respiratory Depth Respiratory Pattern Blood Pressure 85/61 L Blood Pressure [Right Arm] Blood Pressure Mean 62 Blood Pressure Mean [Right Arm] Blood Pressure Position Blood Pressure Position [Right Arm] Pulse Oximetry 99 99 Oxygen Delivery Method Sepsis Recent Fever Within 48 Hours Sepsis New/Unexplained Change in Mental Status Sepsis Action Taken by Nursing 10/03/23 14:52 10/03/23 14:52 10/03/23 14:53 Temperature Temperature Source Pulse Rate 126 H 124 H Pulse Rate [Apical] Pulse Rate from SpO2 Sensor 125 H 127 H Respiratory Rate 17 20 Respiratory Effort / Characteristics Respiratory Depth Respiratory Pattern Blood Pressure 76/59 L Blood Pressure [Right Arm] Blood Pressure Mean 61 Blood Pressure Mean [Right Arm] Blood Pressure Position Blood Pressure Position [Right Arm] Pulse Oximetry 99 99 Oxygen Delivery Method Sepsis Recent Fever Within 48 Hours Sepsis New/Unexplained Change in Mental Status Sepsis Action Taken by Nursing 10/03/23 14:53 10/03/23 14:55 10/03/23 14:55 Temperature Temperature Source Pulse Rate 120 H Pulse Rate [Apical] Pulse Rate from SpO2 Sensor 124 H Respiratory Rate 18 Respiratory Effort / Characteristics Respiratory Depth Respiratory Pattern Blood Pressure 73/60 L 89/60 L Blood Pressure [Right Arm] Blood Pressure Mean 64 66 Blood Pressure Mean [Right Arm] Blood Pressure Position Blood Pressure Position [Right Arm] Pulse Oximetry 99 Oxygen Delivery Method Sepsis Recent Fever Within 48 Hours Sepsis New/Unexplained Change in Mental Status Sepsis Action Taken by Nursing 10/03/23 15:00 10/03/23 15:00 10/03/23 15:05 Temperature Temperature Source Pulse Rate 112 H 104 H Pulse Rate [Apical] Pulse Rate from SpO2 Sensor 124 H 125 H Respiratory Rate 17 19 Respiratory Effort / Characteristics Respiratory Depth Respiratory Pattern Blood Pressure 91/68 L Blood Pressure [Right Arm] Blood Pressure Mean 71 Blood Pressure Mean [Right Arm] Blood Pressure Position Blood Pressure Position [Right Arm] Pulse Oximetry 99 95 Oxygen Delivery Method Sepsis Recent Fever Within 48 Hours Sepsis New/Unexplained Change in Mental Status Sepsis Action Taken by Nursing 10/03/23 15:05 10/03/23 15:10 10/03/23 15:11 Temperature Temperature Source Pulse Rate 67 121 H Pulse Rate [Apical] Pulse Rate from SpO2 Sensor 72 75 Respiratory Rate 16 19 Respiratory Effort / Characteristics Respiratory Depth Respiratory Pattern Blood Pressure 84/66 L Blood Pressure [Right Arm] Blood Pressure Mean 69 Blood Pressure Mean [Right Arm] Blood Pressure Position Blood Pressure Position [Right Arm] Pulse Oximetry 100 100 Oxygen Delivery Method Sepsis Recent Fever Within 48 Hours Sepsis New/Unexplained Change in Mental Status Sepsis Action Taken by Nursing 10/03/23 15:11 10/03/23 15:15 10/03/23 15:18 Temperature Temperature Source Pulse Rate 127 H Pulse Rate [Apical] Pulse Rate from SpO2 Sensor 82 Respiratory Rate 17 Respiratory Effort / Characteristics Respiratory Depth Respiratory Pattern Blood Pressure 84/57 L 89/64 L Blood Pressure [Right Arm] Blood Pressure Mean 63 77 Blood Pressure Mean [Right Arm] Blood Pressure Position Blood Pressure Position [Right Arm] Pulse Oximetry 100 Oxygen Delivery Method Sepsis Recent Fever Within 48 Hours Sepsis New/Unexplained Change in Mental Status Sepsis Action Taken by Nursing 10/03/23 15:18 10/03/23 15:20 10/03/23 15:20 Temperature Temperature Source Pulse Rate 120 H 126 H Pulse Rate [Apical] Pulse Rate from SpO2 Sensor 121 H 123 H Respiratory Rate 20 18 Respiratory Effort / Characteristics Respiratory Depth Respiratory Pattern Blood Pressure 90/69 L Blood Pressure [Right Arm] Blood Pressure Mean 71 Blood Pressure Mean [Right Arm] Blood Pressure Position Blood Pressure Position [Right Arm] Pulse Oximetry 99 99 Oxygen Delivery Method Sepsis Recent Fever Within 48 Hours Sepsis New/Unexplained Change in Mental Status Sepsis Action Taken by Nursing 10/03/23 15:25 10/03/23 15:25 10/03/23 15:26 Temperature Temperature Source Pulse Rate 122 H 130 H Pulse Rate [Apical] Pulse Rate from SpO2 Sensor 135 H Respiratory Rate 20 Respiratory Effort / Characteristics Respiratory Depth Respiratory Pattern Blood Pressure 91/76 L 91/76 L Blood Pressure [Right Arm] Blood Pressure Mean 80 Blood Pressure Mean [Right Arm] Blood Pressure Position Blood Pressure Position [Right Arm] Pulse Oximetry 100 Oxygen Delivery Method Sepsis Recent Fever Within 48 Hours Sepsis New/Unexplained Change in Mental Status Sepsis Action Taken by Nursing 10/03/23 15:27 10/03/23 15:27 10/03/23 15:30 Temperature Temperature Source Pulse Rate 116 H 120 H 119 H Pulse Rate [Apical] Pulse Rate from SpO2 Sensor 110 H Respiratory Rate 15 Respiratory Effort / Characteristics Respiratory Depth Respiratory Pattern Blood Pressure 91/76 L 91/76 L Blood Pressure [Right Arm] Blood Pressure Mean Blood Pressure Mean [Right Arm] Blood Pressure Position Blood Pressure Position [Right Arm] Pulse Oximetry 99 Oxygen Delivery Method Sepsis Recent Fever Within 48 Hours Sepsis New/Unexplained Change in Mental Status Sepsis Action Taken by Nursing 10/03/23 15:30 10/03/23 15:35 10/03/23 15:35 Temperature Temperature Source Pulse Rate 135 H Pulse Rate [Apical] Pulse Rate from SpO2 Sensor 130 H Respiratory Rate 17 Respiratory Effort / Characteristics Respiratory Depth Respiratory Pattern Blood Pressure 102/71 94/65 L Blood Pressure [Right Arm] Blood Pressure Mean 79 70 Blood Pressure Mean [Right Arm] Blood Pressure Position Blood Pressure Position [Right Arm] Pulse Oximetry 98 Oxygen Delivery Method Sepsis Recent Fever Within 48 Hours Sepsis New/Unexplained Change in Mental Status Sepsis Action Taken by Nursing 10/03/23 15:40 10/03/23 15:40 10/03/23 15:42 Temperature 35.7 C L Temperature Source Axillary Pulse Rate 116 H Pulse Rate [Apical] Pulse Rate from SpO2 Sensor 123 H Respiratory Rate 15 Respiratory Effort / Characteristics Respiratory Depth Respiratory Pattern Blood Pressure 83/65 L Blood Pressure [Right Arm] Blood Pressure Mean 69 Blood Pressure Mean [Right Arm] Blood Pressure Position Blood Pressure Position [Right Arm] Pulse Oximetry 99 Oxygen Delivery Method Room Air Sepsis Recent Fever Within 48 Hours Sepsis New/Unexplained Change in Mental Status Sepsis Action Taken by Nursing 10/03/23 15:48 10/03/23 15:48 10/03/23 15:48 Temperature Temperature Source Pulse Rate 113 H Pulse Rate [Apical] Pulse Rate from SpO2 Sensor 109 H Respiratory Rate 18 Respiratory Effort / Characteristics Respiratory Depth Respiratory Pattern Blood Pressure 80/61 L 72/44 L Blood Pressure [Right Arm] Blood Pressure Mean 64 61 Blood Pressure Mean [Right Arm] Blood Pressure Position Blood Pressure Position [Right Arm] Pulse Oximetry 99 Oxygen Delivery Method Sepsis Recent Fever Within 48 Hours Sepsis New/Unexplained Change in Mental Status Sepsis Action Taken by Nursing 10/03/23 15:50 10/03/23 15:50 10/03/23 15:51 Temperature Temperature Source Pulse Rate 105 H Pulse Rate [Apical] Pulse Rate from SpO2 Sensor 106 H Respiratory Rate 28 H Respiratory Effort / Characteristics Respiratory Depth Respiratory Pattern Blood Pressure 78/61 L 83/58 L Blood Pressure [Right Arm] Blood Pressure Mean 66 62 Blood Pressure Mean [Right Arm] Blood Pressure Position Blood Pressure Position [Right Arm] Pulse Oximetry 93 Oxygen Delivery Method Sepsis Recent Fever Within 48 Hours Sepsis New/Unexplained Change in Mental Status Sepsis Action Taken by Nursing 10/03/23 15:51 10/03/23 15:55 10/03/23 15:55 Temperature Temperature Source Pulse Rate 99 H 88 Pulse Rate [Apical] Pulse Rate from SpO2 Sensor 101 H 102 H Respiratory Rate 21 17 Respiratory Effort / Characteristics Respiratory Depth Respiratory Pattern Blood Pressure 72/55 L Blood Pressure [Right Arm] Blood Pressure Mean 58 Blood Pressure Mean [Right Arm] Blood Pressure Position Blood Pressure Position [Right Arm] Pulse Oximetry 95 98 Oxygen Delivery Method Sepsis Recent Fever Within 48 Hours Sepsis New/Unexplained Change in Mental Status Sepsis Action Taken by Nursing 10/03/23 15:58 10/03/23 15:58 10/03/23 16:00 Temperature Temperature Source Pulse Rate 62 111 H Pulse Rate [Apical] Pulse Rate from SpO2 Sensor 69 104 H Respiratory Rate 19 17 Respiratory Effort / Characteristics Respiratory Depth Respiratory Pattern Blood Pressure 81/54 L Blood Pressure [Right Arm] Blood Pressure Mean 57 Blood Pressure Mean [Right Arm] Blood Pressure Position Blood Pressure Position [Right Arm] Pulse Oximetry 98 97 Oxygen Delivery Method Sepsis Recent Fever Within 48 Hours Sepsis New/Unexplained Change in Mental Status Sepsis Action Taken by Nursing 10/03/23 16:01 10/03/23 16:01 10/03/23 16:02 Temperature Temperature Source Pulse Rate 111 H Pulse Rate [Apical] Pulse Rate from SpO2 Sensor 117 H Respiratory Rate 18 Respiratory Effort / Characteristics Respiratory Depth Respiratory Pattern Blood Pressure 67/53 L 67/52 L Blood Pressure [Right Arm] Blood Pressure Mean 55 55 Blood Pressure Mean [Right Arm] Blood Pressure Position Blood Pressure Position [Right Arm] Pulse Oximetry 95 Oxygen Delivery Method Sepsis Recent Fever Within 48 Hours Sepsis New/Unexplained Change in Mental Status Sepsis Action Taken by Nursing 10/03/23 16:02 10/03/23 16:03 10/03/23 16:03 Temperature Temperature Source Pulse Rate 57 L 69 Pulse Rate [Apical] Pulse Rate from SpO2 Sensor 62 68 Respiratory Rate 17 16 Respiratory Effort / Characteristics Respiratory Depth Respiratory Pattern Blood Pressure 72/49 L Blood Pressure [Right Arm] Blood Pressure Mean 60 Blood Pressure Mean [Right Arm] Blood Pressure Position Blood Pressure Position [Right Arm] Pulse Oximetry 98 100 Oxygen Delivery Method Sepsis Recent Fever Within 48 Hours Sepsis New/Unexplained Change in Mental Status Sepsis Action Taken by Nursing 10/03/23 16:05 10/03/23 16:05 10/03/23 16:10 Temperature Temperature Source Pulse Rate 101 H Pulse Rate [Apical] Pulse Rate from SpO2 Sensor 100 H Respiratory Rate 18 Respiratory Effort / Characteristics Respiratory Depth Respiratory Pattern Blood Pressure 82/61 L 86/69 L Blood Pressure [Right Arm] Blood Pressure Mean 69 73 Blood Pressure Mean [Right Arm] Blood Pressure Position Blood Pressure Position [Right Arm] Pulse Oximetry 98 Oxygen Delivery Method Sepsis Recent Fever Within 48 Hours Sepsis New/Unexplained Change in Mental Status Sepsis Action Taken by Nursing 10/03/23 16:10 10/03/23 16:14 10/03/23 16:14 Temperature Temperature Source Pulse Rate 108 H 113 H Pulse Rate [Apical] Pulse Rate from SpO2 Sensor 113 H 122 H Respiratory Rate 20 29 H Respiratory Effort / Characteristics Respiratory Depth Respiratory Pattern Blood Pressure 92/57 L Blood Pressure [Right Arm] Blood Pressure Mean 59 Blood Pressure Mean [Right Arm] Blood Pressure Position Blood Pressure Position [Right Arm] Pulse Oximetry 100 91 Oxygen Delivery Method Sepsis Recent Fever Within 48 Hours Sepsis New/Unexplained Change in Mental Status Sepsis Action Taken by Nursing 10/03/23 16:15 10/03/23 16:16 10/03/23 16:16 Temperature Temperature Source Pulse Rate 111 H 112 H Pulse Rate [Apical] Pulse Rate from SpO2 Sensor 135 H Respiratory Rate 22 24 Respiratory Effort / Characteristics Respiratory Depth Respiratory Pattern Blood Pressure 95/60 L Blood Pressure [Right Arm] Blood Pressure Mean 65 Blood Pressure Mean [Right Arm] Blood Pressure Position Blood Pressure Position [Right Arm] Pulse Oximetry 90 90 Oxygen Delivery Method Sepsis Recent Fever Within 48 Hours Sepsis New/Unexplained Change in Mental Status Sepsis Action Taken by Nursing 10/03/23 16:20 10/03/23 16:20 Temperature Temperature Source Pulse Rate 83 Pulse Rate [Apical] Pulse Rate from SpO2 Sensor 123 H Respiratory Rate 25 H Respiratory Effort / Characteristics Respiratory Depth Respiratory Pattern Blood Pressure 94/63 L Blood Pressure [Right Arm] Blood Pressure Mean 70 Blood Pressure Mean [Right Arm] Blood Pressure Position Blood Pressure Position [Right Arm] Pulse Oximetry 92 Oxygen Delivery Method Sepsis Recent Fever Within 48 Hours Sepsis New/Unexplained Change in Mental Status Sepsis Action Taken by Nursing Laboratory Data Attestation: I reviewed the patient's lab results. 10/03/23 13:15 10/03/23 17:15 Lab Results 10/03/23 10/03/23 10/03/23 Range/Units 13:15 13:24 13:27 WBC 9.68 (4.8-10.8) K/ul RBC 3.95 L (4.70-6.10) M/uL Hgb 11.3 L (14.0-18.0) g/dl POC Hgb 11.6 L (14.0-18.0) g/dl Hct 35.4 L (42.0-52.0) % POC Hct 34 L (42-52) % MCV 89.6 (80.0-100.0) fL MCH 28.6 (25.0-34.0) pg MCHC 31.9 L (32.0-36.0) g/dL RDW Std Deviation 49.9 H (36.4-46.3) fL RDW Coeff of Aysha 15.2 H (11.5-14.5) % Plt Count 293 (130-400) K/uL MPV 10.6 (9.4-12.4) fL Immature Gran % (Auto) 0.6 % Neut % (Auto) 92.9 % Lymph % (Auto) 1.2 % [place] % (Auto) 5.2 % Eos % (Auto) 0.0 % Baso % (Auto) 0.1 % Neut # (Auto) 8.99 H (1.40-6.50) K/uL Lymph # (Auto) 0.12 L (1.20-3.40) K/uL [place] # (Auto) 0.50 (0.11-0.59) K/uL Eos # (Auto) 0.00 (0.00-0.50) K/uL Baso # (Auto) 0.01 (0.00-0.20) K/uL Immature Gran # (Auto) 0.06 (0.01-0.20) K/uL PT 11.9 (9.0-12.0) Seconds INR 1.1 (0.9-1.1) VBG pH 7.06 L (7.36-7.41) VBG pCO2 36 L (38-50) mmHg VBG pO2 33 mmHg VBG HCO3 10 mmol/L VBG O2 Saturation < 60.0 % VBG Base Excess -19.3 mEq/L POC Sodium 135 (135-144) mmol/L Sodium 136 (136-145) mmol/L POC Potassium 4.5 (3.3-5.0) mmol/L Potassium 4.5 (3.5-5.1) mmol/L POC Chloride 106 (101-112) mmol/L Chloride 101 (98-107) mmol/L Carbon Dioxide 9 L* (21-32) mmol/L POC Total CO2 11 L (24-31) mmol/L Anion Gap 26 H (3-11) POC Anion Gap 24.0 (16-25) mmol/L POC BUN > 140 H* (7-18) mg/dl BUN 205 H (6-23) mg/dl Creatinine 7.95 H* (0.6-1.4) mg/dl POC Creatinine 9.5 H* (0.6-1.3) mg/dl Est Cr Clr Drug Dosing 7.9 ml/min Est GFR ( Amer) 6.6 ml/min Est GFR (Non-Af Amer) 5.7 ml/min BUN/Creatinine Ratio 25.8 H (10-20) Glucose 142 H (70-99(Fasting)) mg/dl POC Glucose (other) 143 H (70-99) mg/dl Lactate (0.4-2.0) mmol/L Calcium 9.9 (8.6-10.3) mg/dl POC Ioniz Calcium Ivelisse 1.26 (1.12-1.32) mmol/l Phosphorus 9.6 H (2.5-4.9) mg/dl Magnesium 1.9 (1.7-2.4) mg/dl Total Bilirubin 0.4 (0.2-1.0) mg/dl Direct Bilirubin 0.1 (0-0.2) mg/dl AST 32 (13-39) U/L ALT 44 (7-52) U/L Alkaline Phosphatase 86 (34-104) U/L Troponin I High Sens 415.1 H* (0-20) pg/ml Total Protein 7.3 (6.0-8.3) gm/dl Albumin 3.8 (3.4-5.0) gm/dl Procalcitonin 1.73 H (0-0.5) ng/ml Urine Color Urine Appearance (Clear) Urine pH (4.5-7.5) Ur Specific [place] (1.000-1.030) Urine Protein (Negative) Urine Glucose (UA) (Negative) Urine Ketones (Negative) Urine Blood (Negative) Urine Nitrite (Negative) Urine Bilirubin (Negative) Urine Urobilinogen (Negative) Ur Leukocyte Esterase (Negative) Urine WBC (Auto) (0-5) /hpf Urine RBC (Auto) (0-4) /hpf U Hyaline Cast (Auto) (0-5) /lpf U Epithel Cells (Auto) (0-5) /lpf Urine Bacteria (Auto) (Negative) Urine Yeast 10/03/23 10/03/23 10/03/23 Range/Units 13:30 13:51 15:17 WBC (4.8-10.8) K/ul RBC (4.70-6.10) M/uL Hgb (14.0-18.0) g/dl POC Hgb (14.0-18.0) g/dl Hct (42.0-52.0) % POC Hct (42-52) % MCV (80.0-100.0) fL MCH (25.0-34.0) pg MCHC (32.0-36.0) g/dL RDW Std Deviation (36.4-46.3) fL RDW Coeff of Aysha (11.5-14.5) % Plt Count (130-400) K/uL MPV (9.4-12.4) fL Immature Gran % (Auto) % Neut % (Auto) % Lymph % (Auto) % [place] % (Auto) % Eos % (Auto) % Baso % (Auto) % Neut # (Auto) (1.40-6.50) K/uL Lymph # (Auto) (1.20-3.40) K/uL [place] # (Auto) (0.11-0.59) K/uL Eos # (Auto) (0.00-0.50) K/uL Baso # (Auto) (0.00-0.20) K/uL Immature Gran # (Auto) (0.01-0.20) K/uL PT (9.0-12.0) Seconds INR (0.9-1.1) VBG pH (7.36-7.41) VBG pCO2 (38-50) mmHg VBG pO2 mmHg VBG HCO3 mmol/L VBG O2 Saturation % VBG Base Excess mEq/L POC Sodium (135-144) mmol/L Sodium (136-145) mmol/L POC Potassium (3.3-5.0) mmol/L Potassium (3.5-5.1) mmol/L POC Chloride (101-112) mmol/L Chloride (98-107) mmol/L Carbon Dioxide (21-32) mmol/L POC Total CO2 (24-31) mmol/L Anion Gap (3-11) POC Anion Gap (16-25) mmol/L POC BUN (7-18) mg/dl BUN (6-23) mg/dl Creatinine (0.6-1.4) mg/dl POC Creatinine (0.6-1.3) mg/dl Est Cr Clr Drug Dosing ml/min Est GFR ( Amer) ml/min Est GFR (Non-Af Amer) ml/min BUN/Creatinine Ratio (10-20) Glucose (70-99(Fasting)) mg/dl POC Glucose (other) (70-99) mg/dl Lactate 1.7 (0.4-2.0) mmol/L Calcium (8.6-10.3) mg/dl POC Ioniz Calcium Ivelisse (1.12-1.32) mmol/l Phosphorus (2.5-4.9) mg/dl Magnesium (1.7-2.4) mg/dl Total Bilirubin (0.2-1.0) mg/dl Direct Bilirubin (0-0.2) mg/dl AST (13-39) U/L ALT (7-52) U/L Alkaline Phosphatase (34-104) U/L Troponin I High Sens 530.4 H* D (0-20) pg/ml Total Protein (6.0-8.3) gm/dl Albumin (3.4-5.0) gm/dl Procalcitonin (0-0.5) ng/ml Urine Color Yellow Urine Appearance Clear (Clear) Urine pH 5.0 (4.5-7.5) Ur Specific [place] 1.013 (1.000-1.030) Urine Protein 1+ H (Negative) Urine Glucose (UA) Negative (Negative) Urine Ketones Negative (Negative) Urine Blood Negative (Negative) Urine Nitrite Negative (Negative) Urine Bilirubin Negative (Negative) Urine Urobilinogen Negative (Negative) Ur Leukocyte Esterase Negative (Negative) Urine WBC (Auto) 1-5 (0-5) /hpf Urine RBC (Auto) 0-4 (0-4) /hpf U Hyaline Cast (Auto) 0 (0-5) /lpf U Epithel Cells (Auto) 5-10 H (0-5) /lpf Urine Bacteria (Auto) Negative (Negative) Urine Yeast Not Reportable Administered Medications Amiodarone HCl/Dextrose (Nexterone / D5w) 360 mg in 200 mls @ 33.333 mls/hr IV ONE ONE Stop: 10/03/23 21:27 Last Admin: 10/03/23 15:46 Dose: 1 mg/min, 33.3 mls/hr Documented By: DEVANG Co-signed By: SATHYA Phenylephrine HCl (Phenylephrine/Nss) 25 mg in 250 mls @ 29.88 mls/hr IV .[id number] MADELYN; Protocol Stop: 11/02/23 16:59 Last Titration: 10/03/23 20:13 Dose: 0.7 mcg/kg/min, 41.8 mls/hr Documented By: EDU Co-signed By: [id number] Admin: 10/03/23 18:07 Dose: 0.5 mcg/kg/min, 29.9 mls/hr Documented By: MIKY Co-signed By: TIM Insulin Aspart (Insulin Aspart Per Unit Charge) 0 units [facility] Stop: 11/02/23 18:42 Last Admin: 10/03/23 20:23 Dose: 1 units Documented By: EDU Co-signed By: [id number] Discontinued Medications Amiodarone HCl (Amiodarone Iv Bolus & Drip) 1 each IV NOW STA; Protocol Stop: 10/03/23 15:19 Last Admin: 10/03/23 20:32 Dose: 1 each Documented By: EDU Diltiazem HCl (Diltiazem Hcl 5 Mg/Ml 5 Ml Vial) 5 mg IV NOW STA Stop: 10/03/23 14:16 Last Admin: 10/03/23 14:35 Dose: 5 mg Documented By: SATHYA Co-signed By: YORDAN Sodium Chloride (Nss) 250 mls @ 999 mls/hr IV .Q16M ONE Stop: 10/03/23 12:59 Last Infusion: 10/03/23 15:02 Dose: Infused Documented By: Infusion: 10/03/23 13:20 Dose: 250 mls/hr Documented By: Admin: 10/03/23 13:13 Dose: 999 mls/hr Documented By: SATHYA Sodium Chloride (Nss) 250 mls @ 999 mls/hr IV .Q16M ONE Stop: 10/03/23 13:23 Last Infusion: 10/03/23 15:02 Dose: Infused Documented By: Admin: 10/03/23 13:13 Dose: 999 mls/hr Documented By: SATHYA Diltiazem HCl 125 mg/ Dextrose 125 mls @ 5 mls/hr IV .Q24H MADELYN; Protocol Stop: 11/02/23 13:29 Last Titration: 10/03/23 15:37 Dose: Infused Documented By: DEVANG Co-signed By: SATHYA Titration: 10/03/23 14:18 Dose: 10 mg/hr, 10 mls/hr Documented By: SATHYA Co-signed By: YORDAN Admin: 10/03/23 13:45 Dose: 5 mg/hr, 5 mls/hr Documented By: YORDAN Co-signed By: Acetaminophen (Ofirmev) 1,000 mg in 100 mls @ 400 mls/hr IV NOW STA Stop: 10/03/23 13:34 Last Infusion: 10/03/23 14:46 Dose: Infused Documented By: Admin: 10/03/23 14:08 Dose: 400 mls/hr Documented By: YORDAN Sodium Bicarbonate 150 meq/ (Sterile Water) 1,150 mls @ 125 mls/hr IV .Q9H12M MADELYN Stop: 11/02/23 14:44 Last Infusion: 10/03/23 19:30 Dose: Infused Documented By: Admin: 10/03/23 15:24 Dose: 125 mls/hr Documented By: DEVANG Cefepime HCl 2,000 mg/ Syringe 20 mls @ 5 mls/min IV NOW STA Stop: 10/03/23 14:42 Last Admin: 10/03/23 15:18 Dose: 5 mls/min Documented By: DEVANG Amiodarone HCl/Dextrose (Nexterone / D5w) 150 mg in 100 mls @ 600 mls/hr IV NOW STA Stop: 10/03/23 15:27 Last Infusion: 10/03/23 15:54 Dose: Infused Documented By: DEVANG Co-signed By: SATHYA Admin: 10/03/23 15:33 Dose: 600 mls/hr Documented By: DEVANG Co-signed By: SATHYA Dexamethasone 6 mg/ Syringe 1.5 mls @ 1 mls/min IV Q8H MADELYN Stop: 11/02/23 18:59 Last Admin: 10/03/23 20:33 Dose: Not Given Documented By: EDU Dexamethasone 6 mg/ Syringe 1.5 mls @ 1 mls/min IV DAILY MADELYN Stop: 11/02/23 19:59 Last Admin: 10/03/23 20:33 Dose: Not Given Documented By: EDU Insulin Glargine (Lantus Per Unit Charge) 15 units SC TODAY@2100 ONE Stop: 10/03/23 21:01 Last Admin: 10/03/23 20:26 Dose: 15 units Documented By: EDU Co-signed By: [id number] Metoprolol Tartrate (Metoprolol Tartrate 1 Mg/Ml Vial) Confirm Administered Dose 5 mg IV .STK-MED ONE Stop: 10/03/23 12:41 Last Admin: 10/03/23 12:34 Dose: 5 mg Documented By: SATHYA Metoprolol Tartrate (Metoprolol Tartrate 1 Mg/Ml Vial) 5 mg IV NOW STA Stop: 10/03/23 12:45 Last Admin: 10/03/23 13:02 Dose: 5 mg Documented By: SATHYA Metoprolol Tartrate (Metoprolol Tartrate 1 Mg/Ml Vial) 5 mg IV NOW STA Stop: 10/03/23 13:09 Last Admin: 10/03/23 13:20 Dose: 5 mg Documented By: YORDAN Metoprolol Tartrate (Metoprolol Tartrate 1 Mg/Ml Vial) 5 mg IV NOW STA Stop: 10/03/23 13:21 Last Admin: 10/03/23 14:29 Dose: Not Given Documented By: YORDAN Midodrine (Midodrine Hcl 2.5 Mg Tab) 5 mg PO NOW STA Stop: 10/03/23 12:45 Last Admin: 10/03/23 14:29 Dose: Not Given Documented By: YORDAN Miscellaneous (No Heparin In Dialysis) 1 each N/A ONE ONE Stop: 10/03/23 16:33 Last Admin: 10/03/23 20:15 Dose: Not Given Documented By: YONATAN Sodium Bicarbonate (Sodium Bicarb 8.4% Inj 50 Meq/50 Ml Syr) 50 meq IV NOW STA Stop: 10/03/23 14:34 Last Admin: 10/03/23 15:17 Dose: 50 meq Documented By: DEVANG Imaging Data Radiologist's Impression: Chest X-Ray 10/03/23 12:44 SINGLE VIEW CHEST CLINICAL HISTORY: Sepsis. FINDINGS: 3 AP, portable, semierect chest radiographs are compared to study dated 09/22/2023. The examination is degraded by portable technique and patient rotation. The heart is enlarged. There is pulmonary vascular congestion. There is bibasilar airspace consolidation. Small pleural effusions are noted. No pneumothorax is seen. The skeletal structures are osteopenic. The bony thorax is grossly intact. Arthritic change is seen in the shoulders. IMPRESSION: 1. Cardiomegaly with pulmonary vascular congestion. 2. Small pleural effusions with bibasilar consolidation. Correlate clinically for evidence of pneumonia/aspiration pneumonitis. Radiographic follow-up to resolution is recommended. ACT 112: Negative or not required by law. Electronically signed by: Dez Munoz M.D. 10/03/2023 1:09 PM Discharge Plan Visit Data Chief Complaint: Illness Stated Complaint: ILLNESS ED Provider: Isaac Boo Discharge Problem: End stage renal disease, Elevated troponin, Hypotension, High anion gap metabolic acidosis, Atrial fibrillation with rapid ventricular response, Atrial fibrillation, new onset, Ischemic cardiomyopathy, COVID-19, High blood urea nitrogen (BUN) Patient Disposition: Admitted As Inpatient Discharge Instructions Interventions: ED Discharge Assessment Last Done: 10/03/23 17:13 Discharge Problem: Hypotension Qualifiers: Hypotension type: unspecified hypotension type Qualified Code(s): I95.9 - Hypotension, unspecified
--- NOTE | 2023-10-03 13:10 | XRay Report ---
SINGLE VIEW CHEST CLINICAL HISTORY: Sepsis. FINDINGS: 3 AP, portable, semierect chest radiographs are compared to study dated 09/22/2023. The exa mination is degraded by portable technique and patient rotation. The heart is enlarged. There is pul monary vascular congestion. There is bibasilar airspace consolidation. Small pleural effusions are no zaynab. No pneumothorax is seen. The skeletal structures are osteopenic. The bony thorax is grossly inta ct. Arthritic change is seen in the shoulders. IMPRESSION: 1. Cardiomegaly with pulmonary vascular congestion. 2. Small pleural effusions with bibasilar consolidation. Correlate clinically for evidence of pneumon ia/aspiration pneumonitis. Radiographic follow-up to resolution is recommended. ACT 112: Negative or not required by law. Electronically signed by: Dez Munoz M.D. 10/03/2023 1:09 PM
[2023-10-03] MEDS ORDERED: ACETAMINOPHEN 1,000 MG/100 ML VIAL IV STA (13:20)
[2023-10-03] MEDS ORDERED: STAT IV Infusion **Titration per Protocol STA ×3 (13:20→16:58)
[2023-10-03] MEDS ORDERED: dilTIAZem HCL 125 MG in DEXTROSE 5% 100 ML IV SCH (13:30)
[2023-10-03 13:37] LABS: iSTAT Blood Urea Nitrogen > 140 mg/dl (7-18); iSTAT Carbon Dioxide 11 mmol/L (24-31); iSTAT Chloride 106 mmol/L (101-112); iSTAT Creatinine 9.5 mg/dl (0.6-1.3); iSTAT Glucose 143 mg/dl (70-99); iSTAT Hematocrit 34 % (42-52); iSTAT Hemoglobin 11.6 g/dl (14.0-18.0); iSTAT Ionized Calcium 1.26 mmol/l (1.12-1.32); iSTAT Potassium 4.5 mmol/L (3.3-5.0); iSTAT Sodium 135 mmol/L (135-144)
[2023-10-03 13:42] LABS: Hematocrit (blood only) 35.4 % (42.0-52.0); Hemoglobin 11.3 g/dl (14.0-18.0); Mean Corpuscular Hemoglobin 28.6 pg (25.0-34.0); Mean Corpuscular Hgb Conc 31.9 g/dL (32.0-36.0); Mean Corpuscular Volume 89.6 fL (80.0-100.0); Mean Platelet Volume 10.6 fL (9.4-12.4); Platelet Count 293 K/uL (130-400); RDW Coefficient of Variation 15.2 % (11.5-14.5); RDW Standard Deviation 49.9 fL (36.4-46.3); Red Blood Count 3.95 M/uL (4.70-6.10); White Blood Count 9.68 K/ul (4.8-10.8)
[2023-10-03 13:44] LABS: Base Excess VBG -19.3 mEq/L; HCO3 VBG 10 mmol/L; Oxygen Saturation VBG < 60.0 %; PCO2 VBG 36 mmHg (38-50); PO2 VBG 33 mmHg; pH VBG 7.06 (7.36-7.41)
--- NOTE | 2023-10-03 13:53 | Electrocardiogram Report ---
Test Reason : Blood Pressure : / mmHG Vent. Rate : 146 BPM Atrial Rate : 000 BPM P-R Int : 000 ms QRS Dur : 130 ms QT Int : 284 ms P-R-T Axes : 000 -48 105 degrees QTc Int : 442 ms Atrial fibrillation with rapid ventricular response Left axis deviation Left ventricular hypertrophy with QRS widening Anteroseptal infarct (cited on or before 03-OCT-2023) Abnormal ECG When compared with ECG of 03-OCT-2023 12:12, Atrial fibrillation now present HR has increased by 47 bpm Confirmed by Cameron Miranda ([id number]) on 10/03/2023 1:53:19 PM Referred By: Confirmed By:Cameron Miranda
[2023-10-03 13:59] LABS: INR 1.1 (0.9-1.1); Prothrombin Time 11.9 Seconds (9.0-12.0)
[2023-10-03 14:10] LABS: Albumin Level 3.8 gm/dl (3.4-5.0); BUN Creatinine Ratio 25.8 (10-20); Bilirubin Direct 0.1 mg/dl (0-0.2); Bilirubin,Total 0.4 mg/dl (0.2-1.0); Calcium 9.9 mg/dl (8.6-10.3); Creatinine Clr Calc Pharmacy 7.9 ml/min; Est GFR (African American) 6.6 ml/min; Est GFR (Non-African American) 5.7 ml/min; Magnesium 1.9 mg/dl (1.7-2.4); Phosphorus 9.6 mg/dl (2.5-4.9); Potassium 4.5 mmol/L (3.5-5.1); Total Protein 7.3 gm/dl (6.0-8.3); Troponin I High Sensitivity 415.1 pg/ml (0-20)
[2023-10-03 14:14] LABS: Basophils # (auto) 0.01 K/uL (0.00-0.20); Basophils % (auto) 0.1 %; Immature Granulocytes # (auto) 0.06 K/uL (0.01-0.20); Immature Granulocytes % (auto) 0.6 %; Lymphocytes # (auto) 0.12 K/uL (1.20-3.40); Lymphocytes % (auto) 1.2 %; Monocytes % (auto) 5.2 %; Neutrophils # (auto) 8.99 K/uL (1.40-6.50); Neutrophils % (auto) 92.9 %
[2023-10-03] MEDS ORDERED: dilTIAZem HCl 5 MG/ML 5 ML VIAL IV STA (14:15)
--- NOTE | 2023-10-03 14:24 | History & Physical Report ---
Date of Service October 03, 2023 History of Present Illness Chief Complaint: New onset afib RVR Primary Care Provider: Orly Dickson MD Davin is an 83 yo male with PMHx of HTN, HLD, iron deficiency anemia, HFpEF, DM2, hypothyroidism, BPH, CKD stage 5 Allergies Allergy/AdvReac Type Severity Reaction Status Date / Time latex Allergy Mild SKIN Verified 10/03/23 11:55 IRRITATION Home Medications Medication Instructions Recorded Confirmed Type flash glucose scanning reader 07/19/20 09/10/23 History (FreeStyle Ritchie 14 Day [place]) flash glucose sensor (FreeStyle 07/19/20 09/10/23 History Ritchie 14 Day Sensor kit) nystatin 100,000 unit/gram topical 1 applic topical BID PRN Itching 06/13/22 09/14/23 Rx cream #30 grams furosemide 40 mg tablet 40 mg PO QAM 11/29/22 09/14/23 History pantoprazole 40 mg tablet,delayed 40 mg PO QAM 11/29/22 09/14/23 History release insulin regular human 100 unit/mL See Rx Instructions subcut TIDM 12/04/22 09/14/23 Rx injection solution (Novolin R #40 mL Regular U-100 Insulin) metoprolol succinate 50 mg 75 mg (1.5 x 50 mg) PO HS #135 tabs 01/09/23 09/14/23 Rx tablet,extended release 24 hr insulin syringe,safetyneedle 0.3 #700 ea 01/15/23 09/10/23 Rx mL 31 gauge x 15/64" (BD SafetyGlide Insulin Syringe) clonidine HCl 0.1 mg tablet 0.1 mg PO HS #90 tabs 03/16/23 09/14/23 Rx ezetimibe 10 mg tablet (Zetia) 10 mg PO QPM 04/13/23 09/14/23 History insulin glargine 100 unit/mL (3 27 unit subcut QPM 04/13/23 09/14/23 History mL) subcutaneous pen (Basaglar KwikPen U-100 Insulin) levothyroxine 50 mcg tablet 50 mcg PO QAM 04/13/23 09/14/23 History (Synthroid) sildenafil 100 mg tablet (Viagra) 100 mg PO ONCE PRN sexual activity 04/13/23 09/14/23 History triamcinolone acetonide 0.1 % 1 applic topical BID PRN Itching 04/13/23 09/14/23 History topical cream (Triderm) pen needle, diabetic 31 gauge x #200 ea 04/27/23 09/10/23 Rx 3/16" (BD Ultra-Fine Mini Pen Needle) ferrous sulfate 140 mg (45 mg 45 mg PO BID 05/23/23 09/14/23 History iron) tablet,extended release tramadol 50 mg tablet 50 mg PO Q8H PRN pain #10 tabs 07/03/23 09/14/23 Rx fluticasone propionate 50 1 spray intranasal BID #3 BTLS 07/16/23 09/14/23 Rx mcg/actuation nasal spray,suspension (Flonase Allergy Relief) hepatitis B vaccine 20 mcg/0.5 0.5 ml IM Q30D 2 doses #2.5 mL 07/26/23 09/14/23 Rx mL-adjuvant CpG 1018 (PF) IM syringe (Heplisav-B (PF)) alprazolam 0.5 mg tablet 0.5 mg PO DAILY PRN anxiety #20 08/08/23 09/14/23 Rx tabs iron sucrose 200 mg iron/10 mL 200 mg (10 mL) IV DAILY 5 doses 08/29/23 09/14/23 Rx intravenous solution (Venofer) tramadol 50 mg tablet 50 mg PO BID PRN pain 30 days #60 09/04/23 09/14/23 Rx tabs finasteride 5 mg tablet (Proscar) 5 mg PO DAILY #90 tabs 09/06/23 09/14/23 Rx tamsulosin 0.4 mg capsule 0.8 mg (2 x 0.4 mg) PO DAILY #180 09/06/23 09/14/23 Rx caps darbepoetin jude in polysorbat 60 60 mcg subcut .COMPLEX #4 mL 09/12/23 09/14/23 Rx mcg/mL in polysorbate injection (Aranesp) hepatitis B vaccine 20 mcg/0.5 0.5 ml IM Q30D 2 doses #2.5 mL 09/12/23 09/14/23 Rx mL-adjuvant CpG 1018 (PF) IM syringe (Heplisav-B (PF)) aspirin 81 mg tablet,delayed 81 mg PO QAM #0 tabs 09/22/23 Rx release atorvastatin 40 mg tablet 80 mg (2 x 40 mg) PO QAM #0 tabs 09/22/23 Rx clopidogrel 75 mg tablet 75 mg PO QAM #0 tabs 09/22/23 Rx furosemide 40 mg tablet 40 mg PO BID17 #0 tabs 09/22/23 Rx metoprolol succinate 50 mg 100 mg (2 x 50 mg) PO QAM #0 tabs 09/22/23 Rx tablet,extended release 24 hr nitroglycerin 0.4 mg/hr 1 patch transdermal QAM #0 ea 09/22/23 Rx transdermal 24 hour patch (Nitro-Dur) Past Med/Surg History Medical History Chronic kidney disease BPH (benign prostatic hyperplasia) Arteriovenous fistula Left AVF creation 11/2022- now has occlusion- reason for upcoming procedure History of kidney stones Glaucoma HX OF- S/P TREATMENT- NO CURRENT ISSUES 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 CORDOVA CKD V Controlled type 2 diabetes mellitus with kidney complication, with long-term current use of insulin Hgb A1C 09/2022 was 7.7 Coronary arteriosclerosis S/p angioplasty 1990 (no stent or hx of CABG) Cyst of kidney, acquired Dyslipidemia Hypertension FOLLOWED BY DR. RAYO Hypothyroidism Obesity, Class II, BMI 35-39.9 Surgical History History of total right knee replacement H/O eye surgery RT/LEFT EYE FOR GLAUCOMA History of cataract surgery LEFT/RT History of total left knee replacement (TKR) X 2 History of lithotripsy a couple times History of tonsillectomy History of angioplasty at the age of 51 History of surgery scrotal hernia repair History of exploratory laparotomy History of umbilical hernia repair History of colonoscopy History of ear surgery Tympanic membrane repair--per pt a couple times Family History Father Cancer of kidney Hypertension Cardiac disorder Family/Other Cancer of kidney Bone cancer Mother Bone cancer Cardiac disorder Hypertension Other No family history of adverse response to anesthesia No family history of bleeding disorder Social History Smoking Status: Former smoker Tobacco Type: Cigarettes Second Hand Exposure: No; Do You Dip or Chew Tobacco: No; Hx Alcohol Use: No Hx Substance Use: No Preferred Language: Citizen Of [place] Communication Ability: Effective Visual Impairment: Limited Hearing Ability: Normal Forklift Operator Required: No Beliefs That Will Affect Care: None marital status: / Current Living Situation: Alone current occupational status: employed 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 How many Children do You have: 1 How many Children do You have Comment: Stepdaughter, 2 grandchildren Feels Safe at Home: Yes Diet: regular caffeine: Yes during the past year weight has: remained stable Dental Care, Regularly: Yes Physical Activity Frequency: 5-6 Times per Week Seatbelt Use: always Sunscreen Use: No Assistive Devices: Cane and Walker Results & Data Results & Data Vital Signs (Past 12 Hours) Vital Signs Pulse Pulse Resp BP BP Pulse Ox O2 Del Method 10/03/23 14:09 134 H 10/03/23 13:54 144 H 18 105/70 100 Room Air 10/03/23 13:40 85 19 99 10/03/23 13:40 94/67 L 10/03/23 13:40 90 10/03/23 13:36 123 H 20 93 Room Air 10/03/23 13:35 81 18 98 10/03/23 13:35 94/69 L 10/03/23 13:31 87 18 99 10/03/23 13:31 90/64 L 10/03/23 13:30 78 19 98 10/03/23 13:25 132 H 17 99 10/03/23 13:20 138 H 19 100 10/03/23 13:20 131 H 89/68 L 10/03/23 13:17 89/68 L 10/03/23 13:17 133 H 21 100 10/03/23 13:15 82 18 98 10/03/23 13:10 128 H 18 99 10/03/23 13:05 133 H 19 99 10/03/23 13:00 127 H 19 10/03/23 12:59 77/64 L 10/03/23 12:59 140 H 20 10/03/23 12:55 94 H 15 10/03/23 12:53 95 H 28 H 10/03/23 12:53 86/56 L 10/03/23 12:51 73/53 L 10/03/23 12:51 139 H 25 H 10/03/23 12:50 139 H 23 10/03/23 12:48 140 H 21 10/03/23 12:48 75/42 L 10/03/23 12:45 151 H 20 10/03/23 12:42 160 H 18 74/42 L 93 Room Air 10/03/23 12:40 161 H 19 10/03/23 12:37 150 H 10/03/23 12:35 144 H 22 10/03/23 12:34 155 H PG Care Time/CCT Total # of Minutes Spent Total Time Spent with Patient: Total time spent is greater than 50% in coordination of care (as documented) at patient's floor/unit and/or counseling patient: Coding
[2023-10-03] MEDS ORDERED: SODIUM BICARB 8.4% INJ 50 MEQ/50 ML SYR IV STA (14:33)
[2023-10-03] MEDS ORDERED: CEFEPIME 2,000 MG in SYRINGE 0 ML IV STA (14:39)
[2023-10-03] MEDS ORDERED: SODIUM BICARBONATE 8.4% 150 MEQ in WATER, STERILE 1,000 ML IV SCH (14:45)
[2023-10-03 14:52] LABS: Appearance Urine Clear (Clear); Bacteria Urine Automated Negative (Negative); Bilirubin Urine Negative (Negative); Blood Urine Negative (Negative); Cast Urine Automated 0 /lpf (0-5); Color Urine Yellow; Glucose Urine UA Negative (Negative); Ketones Urine Negative (Negative); Leukocyte Esterase Urine Negative (Negative); Nitrite Urine Negative (Negative); Protein Urine 1+ (Negative); RBC Urine Automated 0-4 /hpf (0-4); Specific Gravity Urine 1.013 (1.000-1.030); Urobilinogen Urine Negative (Negative)
[2023-10-03] MEDS ORDERED: AMIODARONE IV BOLUS & DRIP IV STA (15:18)
[2023-10-03] MEDS ORDERED: 0.2 MICRON FILTER SET 1 EACH IV STA (15:18)
[2023-10-03] MEDS ORDERED: AMIODARONE / D5W 150 MG/100 ML BAG IV STA (15:18)
[2023-10-03] MEDS ORDERED: AMIODARONE / D5W 360 MG/200 ML BAG IV ONE (15:28)
--- NOTE | 2023-10-03 15:56 | Electrocardiogram Report ---
Test Reason : Blood Pressure : / mmHG Vent. Rate : 095 BPM Atrial Rate : 000 BPM P-R Int : 000 ms QRS Dur : 136 ms QT Int : 384 ms P-R-T Axes : 000 -41 097 degrees QTc Int : 482 ms Atrial fibrillation with rapid ventricular response with premature ventricular or aberrantly conducte d complexes Non-specific intra-ventricular conduction delay Old Septal infarct Abnormal ECG When compared with ECG of 03-OCT-2023 12:37, Vent. rate has decreased BY 51 BPM Confirmed by Cameron Miranda ([id number]) on 10/03/2023 3:56:46 PM Referred By: REFERRED SELF Confirmed By:Cameron Miranda
[2023-10-03] MEDS ORDERED: SODIUM CHLORIDE 0.9% 1,000 ML IV PRN (16:32)
--- NOTE | 2023-10-03 16:33 | History & Physical Report ---
Date of Service October 03, 2023 Assessment & Plan (1) Acute kidney injury superimposed on CKD: Plan: Nephrology consulted for emergent dialysis in setting of metabolic acidosis This is likely to be permanent at this stage (2) High anion gap metabolic acidosis: Plan: Suspected secondary to uremia. Lactate WNL. Sodium bicarb 50 meq IV given by ER physician as advised Stop sodium bicarb drip as appears hypervolemic at this time with elevated JVD and peripheral edema. Ultimate treatment is with hemodialysis (3) Hypotension: Plan: Appears to improve when in NSR therefore possibly rate related and should improve with amiodarone Lactate WNL therefore vasopressors not started at this time and will defer ongoing management to ICU Infection not ruled out Suspect cardiogenic in setting of recent NSTEMI possibility if not improving with better rate control (4) Atrial fibrillation with rapid ventricular response: Plan: New onset in setting of recent NSTEMI, metabolic acidosis and hypervolemic state Intermittently converting in the ER on diltiazem drip. Given recent NSTEMI and intermittent conversion with improved BP in NSR recommended switching to amiodarone bolus and drip which has been done and will continue. Anticoagulation held for dialysis catheter placement and need for emergent dialysis. Consider heparin IV drip once these have been performed. (5) COVID-19: Plan: Dexamethasone order by ICU appears appropriate given rhonchi on exam and unclear how much this is contributing towards his respiratory failure COVID isolation precautions (6) Pneumonia: Plan: Although elevated procalcitonin is in setting of JV it appears new since 09/18 and consolidation in right lower lobe on CXR recommend antibiotics to cover for this. Cefepime given in the ER, will defer ongoing antibiotics to the ICU - discussed with Dr Rosario. (7) Acute hypoxemic respiratory failure: Plan: Aim O2 sats > 90% Suspect secondary to pulmonary edema +/- COVID +/- pneumonia (8) Cardiomyopathy: Plan: Continue metoprolol succinate if BP allows (9) Acute combined systolic and diastolic CHF, NYHA class 3: Plan: Further fluid management to be performed with dialysis. Lasix held due to hypotension. Monitor I&Os Daily weights (10) Controlled type 2 diabetes mellitus with kidney complication, with long- term current use of insulin: Plan: HbA1C 7.7, Oct 02. No longer accurate in setting of dialysis Usually on Basaglar 27 units QPM although current glucose 142 therefore will just dose ACHS for now to determine if he needs ongoing basal dosing He was on 27 units basal dosing last admission with hyperglycemia therefore suspect he will need to go back on basal dosing Pharmacy consulted for glycemic control (11) BPH with obstruction/lower urinary tract symptoms: Plan: Insert banda catheter Holding tamsulosin due to hypotension Plan VTE Prophylaxis - deferred to ICU pending hemodialysis and dialysis catheter placement Diet - NPO Disposition - admit to ICU Admission and Anticipated Discharge Date Admission Date: October 03, 2023 History of Present Illness Chief Complaint: Hypotension, tachycardia Primary Care Provider: Orly Dickson MD Davin Gaviria is an 83 year old male who presents to the ER from pre-op for the OR for tunneled catheter placement due to BP 80/60s with heart rate in the 160s. He was recently admitted to [facility] - [facility], due to NSTEMI. Cardiac catheterization was performed showing severe obstructive coronary disease involving the LAD and left circumflex systems with medical management recommended - although I am unclear whether CABG was discussed I suspect he is just a poor candidate for this given his other chronic medical problems. He was discharged to [facility] and was noted to have worsening creatinine yesterday of 7 (per ER report) and planned for tunneled catheter today to start hemodialysis. The patient reports no chest pain since discharge but does note slowly increased shortness of breath since discharge. He is unsure about his weight or leg swelling. He reports 2 weeks of cough which was also present during his last admission here. No fever or chills. Patient was discussed with me around 2:28pm and advised ER physician needs to discuss with nephrology (needs emergent dialysis ?CRRT), cardiology (?CABG given severe obstructive coronary disease involving the LAD and left circumflex systems, management of a. fib RVR) and pit clerk (will need to be admitted to ICU if he does stay here) prior to admission to [facility]. Recommended sodium bicarb 50 meq IV to stabilize metabolic acidosis prior to dialysis and amiodarone IV drip instead of diltiazem given his BP improves in NSR, recent NSTEMI with borderline EF and already converting in and out of a. fib on telemetry. Patient seen after temporary dialysis catheter placed by pit clerk and nephrology accepted patient for hemodialysis here. Allergies Allergy/AdvReac Type Severity Reaction Status Date / Time latex Allergy Mild SKIN Verified 10/03/23 14:52 IRRITATION Home Medications Medication Instructions Recorded Confirmed Type flash glucose scanning reader 07/19/20 10/03/23 History (FreeStyle Ritchie 14 Day [place]) flash glucose sensor (FreeStyle 07/19/20 10/03/23 History Ritchie 14 Day Sensor kit) nystatin 100,000 unit/gram topical 1 applic topical BID PRN Itching 06/13/22 10/03/23 Rx cream #30 grams furosemide 40 mg tablet 40 mg PO QAM 11/29/22 10/03/23 History pantoprazole 40 mg tablet,delayed 40 mg PO QAM 11/29/22 10/03/23 History release insulin regular human 100 unit/mL See Rx Instructions subcut TIDM 12/04/22 10/03/23 Rx injection solution (Novolin R #40 mL Regular U-100 Insulin) metoprolol succinate 50 mg 75 mg (1.5 x 50 mg) PO HS #135 tabs 01/09/23 10/03/23 Rx tablet,extended release 24 hr insulin syringe,safetyneedle 0.3 #700 ea 01/15/23 10/03/23 Rx mL 31 gauge x 15/64" (BD SafetyGlide Insulin Syringe) clonidine HCl 0.1 mg tablet 0.1 mg PO HS #90 tabs 03/16/23 10/03/23 Rx ezetimibe 10 mg tablet (Zetia) 10 mg PO QPM 04/13/23 10/03/23 History insulin glargine 100 unit/mL (3 27 unit subcut QPM 04/13/23 10/03/23 History mL) subcutaneous pen (Basaglar KwikPen U-100 Insulin) levothyroxine 50 mcg tablet 50 mcg PO QAM 04/13/23 10/03/23 History (Synthroid) sildenafil 100 mg tablet (Viagra) 100 mg PO ONCE PRN sexual activity 04/13/23 10/03/23 History triamcinolone acetonide 0.1 % 1 applic topical BID PRN Itching 04/13/23 10/03/23 History topical cream (Triderm) pen needle, diabetic 31 gauge x #200 ea 04/27/23 10/03/23 Rx 3/16" (BD Ultra-Fine Mini Pen Needle) ferrous sulfate 140 mg (45 mg 45 mg PO BID 05/23/23 10/03/23 History iron) tablet,extended release tramadol 50 mg tablet 50 mg PO Q8H PRN pain #10 tabs 07/03/23 10/03/23 Rx fluticasone propionate 50 1 spray intranasal BID #3 BTLS 07/16/23 10/03/23 Rx mcg/actuation nasal spray,suspension (Flonase Allergy Relief) hepatitis B vaccine 20 mcg/0.5 0.5 ml IM Q30D 2 doses #2.5 mL 07/26/23 10/03/23 Rx mL-adjuvant CpG 1018 (PF) IM syringe (Heplisav-B (PF)) alprazolam 0.5 mg tablet 0.5 mg PO DAILY PRN anxiety #20 08/08/23 10/03/23 Rx tabs iron sucrose 200 mg iron/10 mL 200 mg (10 mL) IV DAILY 5 doses 08/29/23 10/03/23 Rx intravenous solution (Venofer) tramadol 50 mg tablet 50 mg PO BID PRN pain 30 days #60 09/04/23 10/03/23 Rx tabs finasteride 5 mg tablet (Proscar) 5 mg PO DAILY #90 tabs 09/06/23 10/03/23 Rx tamsulosin 0.4 mg capsule 0.8 mg (2 x 0.4 mg) PO DAILY #180 09/06/23 10/03/23 Rx caps darbepoetin jude in polysorbat 60 60 mcg subcut .COMPLEX #4 mL 09/12/23 10/03/23 Rx mcg/mL in polysorbate injection (Aranesp) hepatitis B vaccine 20 mcg/0.5 0.5 ml IM Q30D 2 doses #2.5 mL 09/12/23 10/03/23 Rx mL-adjuvant CpG 1018 (PF) IM syringe (Heplisav-B (PF)) aspirin 81 mg tablet,delayed 81 mg PO QAM #0 tabs 09/22/23 10/03/23 Rx release atorvastatin 40 mg tablet 80 mg (2 x 40 mg) PO QAM #0 tabs 09/22/23 10/03/23 Rx clopidogrel 75 mg tablet 75 mg PO QAM #0 tabs 09/22/23 10/03/23 Rx furosemide 40 mg tablet 40 mg PO BID17 #0 tabs 09/22/23 10/03/23 Rx metoprolol succinate 50 mg 100 mg (2 x 50 mg) PO QAM #0 tabs 09/22/23 10/03/23 Rx tablet,extended release 24 hr nitroglycerin 0.4 mg/hr 1 patch transdermal QAM #0 ea 09/22/23 10/03/23 Rx transdermal 24 hour patch (Nitro-Dur) Past Med/Surg History Medical History Chronic kidney disease BPH (benign prostatic hyperplasia) Arteriovenous fistula Left AVF creation 11/2022- now has occlusion- reason for upcoming procedure History of kidney stones Glaucoma HX OF- S/P TREATMENT- NO CURRENT ISSUES 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 CORDOVA CKD V Controlled type 2 diabetes mellitus with kidney complication, with long-term current use of insulin Hgb A1C 09/2022 was 7.7 Coronary arteriosclerosis S/p angioplasty 1990 (no stent or hx of CABG) Cyst of kidney, acquired Dyslipidemia Hypertension FOLLOWED BY DR. RAYO Hypothyroidism Obesity, Class II, BMI 35-39.9 Surgical History History of total right knee replacement H/O eye surgery RT/LEFT EYE FOR GLAUCOMA History of cataract surgery LEFT/RT History of total left knee replacement (TKR) X 2 History of lithotripsy a couple times History of tonsillectomy History of angioplasty at the age of 51 History of surgery scrotal hernia repair History of exploratory laparotomy History of umbilical hernia repair History of colonoscopy History of ear surgery Tympanic membrane repair--per pt a couple times Family History Father Cancer of kidney Hypertension Cardiac disorder Family/Other Cancer of kidney Bone cancer Mother Bone cancer Cardiac disorder Hypertension Other No family history of adverse response to anesthesia No family history of bleeding disorder Social History Smoking Status: Never smoker Tobacco Type: Cigarettes Second Hand Exposure: No; Do You Dip or Chew Tobacco: No; Hx Alcohol Use: No Hx Substance Use: No Preferred Language: [place] Communication Ability: Effective Visual Impairment: Limited Hearing Ability: Normal Section Maintainer Required: No Beliefs That Will Affect Care: None marital status: / Current Living Situation: Alone current occupational status: employed 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 How many Children do You have: 1 How many Children do You have Comment: Stepdaughter, 2 grandchildren Feels Safe at Home: Yes Diet: regular caffeine: Yes during the past year weight has: remained stable Dental Care, Regularly: Yes Physical Activity Frequency: 5-6 Times per Week Seatbelt Use: always Sunscreen Use: No Assistive Devices: Cane, Glasses and Walker Review of Systems Review of Systems: All systems reviewed & are unremarkable except as noted in HPI & below Physical Exam Constitutional: well developed; + not well nourished and no acute distress Eyes: + anicteric sclerae; normal pupil size Respiratory: + labored breathing and + uses accessory muscles Cardiovascular: Rate/Rhythm: + tachycardic and + irregularly irregular Heart Sounds: no murmur Vessels: + JVD (elevated to jaw line) Extremities: normal capillary refill and + pedal edema (2+ pitting to abdomen); no calf tenderness Gastrointestinal (Abdomen): normal bowel sounds, soft, nontender, no hepatosplenomegaly Musculoskeletal: no cyanosis or clubbing, extremities motor strength 5/5 Skin: no rashes, warm and dry Neurologic: moves all extremities and awake; no focal motor deficits (no unilateral weakness) and not confused Psychiatric: Orientation: alert, oriented to person and oriented to place; + not oriented to time Results & Data Results & Data Vital Signs (Past 12 Hours) Vital Signs Temp Pulse Pulse Resp BP BP Pulse Ox 10/03/23 15:42 35.7 C L 10/03/23 15:40 83/65 L 10/03/23 15:40 116 H 15 99 10/03/23 15:35 135 H 17 98 10/03/23 15:35 94/65 L 10/03/23 15:30 102/71 10/03/23 15:30 119 H 15 99 10/03/23 15:27 120 H 91/76 L 10/03/23 15:27 116 H 91/76 L 10/03/23 15:26 130 H 91/76 L 10/03/23 15:25 122 H 20 100 10/03/23 15:25 91/76 L 10/03/23 15:20 126 H 18 99 10/03/23 15:20 90/69 L 10/03/23 15:18 120 H 20 99 10/03/23 15:18 89/64 L 10/03/23 15:15 127 H 17 100 10/03/23 15:11 84/57 L 10/03/23 15:11 121 H 19 100 10/03/23 15:10 67 16 100 10/03/23 15:05 84/66 L 10/03/23 15:05 104 H 19 95 10/03/23 15:00 91/68 L 10/03/23 15:00 112 H 17 99 10/03/23 14:55 120 H 18 99 10/03/23 14:55 89/60 L 10/03/23 14:53 73/60 L 10/03/23 14:53 124 H 20 99 10/03/23 14:52 126 H 17 99 10/03/23 14:52 76/59 L 10/03/23 14:50 124 H 17 99 10/03/23 14:50 85/61 L 10/03/23 14:47 122 H 18 99 10/03/23 14:47 94/68 L 10/03/23 14:45 74 18 98 10/03/23 14:45 89/55 L 10/03/23 14:43 119 H 16 99 10/03/23 14:43 93/48 L 10/03/23 14:41 77 20 100 10/03/23 14:41 86/53 L 10/03/23 14:40 73 18 96 10/03/23 14:37 77 17 99 10/03/23 14:37 92/58 L 10/03/23 14:35 105 H 18 98 10/03/23 14:35 90/65 L 10/03/23 14:30 121 H 17 100 10/03/23 14:30 91/56 L 10/03/23 14:25 91/64 L 10/03/23 14:25 116 H 24 100 10/03/23 14:20 67 18 98 10/03/23 14:20 83/56 L 10/03/23 14:18 114 H 19 97 10/03/23 14:18 85/58 L 10/03/23 14:15 132 H 19 98 10/03/23 14:15 80/58 L 10/03/23 14:10 117 H 19 98 10/03/23 14:10 90/71 L 10/03/23 14:09 134 H 10/03/23 14:05 90/66 L 10/03/23 14:05 88 17 97 10/03/23 14:00 87 20 96 10/03/23 14:00 96/67 L 10/03/23 13:55 133 H 16 99 10/03/23 13:55 105/70 10/03/23 13:54 106/71 10/03/23 13:54 141 H 15 100 10/03/23 13:54 144 H 18 105/70 100 10/03/23 13:50 97/71 L 10/03/23 13:50 141 H 22 100 10/03/23 13:45 140 H 18 98 10/03/23 13:45 94/70 L 10/03/23 13:40 85 19 99 10/03/23 13:40 94/67 L 10/03/23 13:40 90 10/03/23 13:36 123 H 20 93 10/03/23 13:35 81 18 98 10/03/23 13:35 94/69 L 10/03/23 13:31 87 18 99 10/03/23 13:31 90/64 L 10/03/23 13:30 78 19 98 10/03/23 13:25 132 H 17 99 10/03/23 13:20 138 H 19 100 10/03/23 13:20 131 H 89/68 L 10/03/23 13:17 89/68 L 10/03/23 13:17 133 H 21 100 10/03/23 13:15 82 18 98 10/03/23 13:10 128 H 18 99 10/03/23 13:05 133 H 19 99 10/03/23 13:00 127 H 19 10/03/23 12:59 77/64 L 10/03/23 12:59 140 H 20 10/03/23 12:55 94 H 15 10/03/23 12:53 95 H 28 H 10/03/23 12:53 86/56 L 10/03/23 12:51 73/53 L 10/03/23 12:51 139 H 25 H 10/03/23 12:50 139 H 23 10/03/23 12:48 140 H 21 10/03/23 12:48 75/42 L 10/03/23 12:45 151 H 20 10/03/23 12:42 160 H 18 74/42 L 93 10/03/23 12:40 161 H 19 10/03/23 12:37 150 H 10/03/23 12:35 144 H 22 10/03/23 12:34 155 H O2 Del Method 10/03/23 15:42 10/03/23 15:40 10/03/23 15:40 Room Air 10/03/23 15:35 10/03/23 15:35 10/03/23 15:30 10/03/23 15:30 10/03/23 15:27 10/03/23 15:27 10/03/23 15:26 10/03/23 15:25 10/03/23 15:25 10/03/23 15:20 10/03/23 15:20 10/03/23 15:18 10/03/23 15:18 10/03/23 15:15 10/03/23 15:11 10/03/23 15:11 10/03/23 15:10 10/03/23 15:05 10/03/23 15:05 10/03/23 15:00 10/03/23 15:00 10/03/23 14:55 10/03/23 14:55 10/03/23 14:53 10/03/23 14:53 10/03/23 14:52 10/03/23 14:52 10/03/23 14:50 10/03/23 14:50 10/03/23 14:47 10/03/23 14:47 10/03/23 14:45 10/03/23 14:45 10/03/23 14:43 10/03/23 14:43 10/03/23 14:41 10/03/23 14:41 10/03/23 14:40 10/03/23 14:37 10/03/23 14:37 10/03/23 14:35 10/03/23 14:35 10/03/23 14:30 10/03/23 14:30 10/03/23 14:25 10/03/23 14:25 10/03/23 14:20 10/03/23 14:20 10/03/23 14:18 10/03/23 14:18 10/03/23 14:15 10/03/23 14:15 10/03/23 14:10 10/03/23 14:10 10/03/23 14:09 10/03/23 14:05 10/03/23 14:05 10/03/23 14:00 10/03/23 14:00 10/03/23 13:55 10/03/23 13:55 10/03/23 13:54 10/03/23 13:54 10/03/23 13:54 Room Air 10/03/23 13:50 10/03/23 13:50 10/03/23 13:45 10/03/23 13:45 10/03/23 13:40 10/03/23 13:40 10/03/23 13:40 10/03/23 13:36 Room Air 10/03/23 13:35 10/03/23 13:35 10/03/23 13:31 10/03/23 13:31 10/03/23 13:30 10/03/23 13:25 10/03/23 13:20 10/03/23 13:20 10/03/23 13:17 10/03/23 13:17 10/03/23 13:15 10/03/23 13:10 10/03/23 13:05 10/03/23 13:00 10/03/23 12:59 10/03/23 12:59 10/03/23 12:55 10/03/23 12:53 10/03/23 12:53 10/03/23 12:51 10/03/23 12:51 10/03/23 12:50 10/03/23 12:48 10/03/23 12:48 10/03/23 12:45 10/03/23 12:42 Room Air 10/03/23 12:40 10/03/23 12:37 10/03/23 12:35 10/03/23 12:34 Laboratory Results Abnormal lab results 10/03/23 10/03/23 10/03/23 Range/Units 13:15 13:24 13:27 RBC 3.95 L (4.70-6.10) M/uL Hgb 11.3 L (14.0-18.0) g/dl POC Hgb 11.6 L (14.0-18.0) g/dl Hct 35.4 L (42.0-52.0) % POC Hct 34 L (42-52) % MCHC 31.9 L (32.0-36.0) g/dL RDW Std Deviation 49.9 H (36.4-46.3) fL RDW Coeff of Aysha 15.2 H (11.5-14.5) % Neut # (Auto) 8.99 H (1.40-6.50) K/uL Lymph # (Auto) 0.12 L (1.20-3.40) K/uL VBG pH 7.06 L (7.36-7.41) VBG pCO2 36 L (38-50) mmHg Carbon Dioxide 9 L* (21-32) mmol/L POC Total CO2 11 L (24-31) mmol/L Anion Gap 26 H (3-11) POC BUN > 140 H* (7-18) mg/dl BUN 205 H (6-23) mg/dl Creatinine 7.95 H* (0.6-1.4) mg/dl POC Creatinine 9.5 H* (0.6-1.3) mg/dl BUN/Creatinine Ratio 25.8 H (10-20) Glucose 142 H (70-99(Fasting)) mg/dl POC Glucose (other) 143 H (70-99) mg/dl Phosphorus 9.6 H (2.5-4.9) mg/dl Troponin I High Sens 415.1 H* (0-20) pg/ml Procalcitonin 1.73 H (0-0.5) ng/ml Urine Protein (Negative) U Epithel Cells (Auto) (0-5) /lpf 10/03/23 10/03/23 Range/Units 13:51 15:17 RBC (4.70-6.10) M/uL Hgb (14.0-18.0) g/dl POC Hgb (14.0-18.0) g/dl Hct (42.0-52.0) % POC Hct (42-52) % MCHC (32.0-36.0) g/dL RDW Std Deviation (36.4-46.3) fL RDW Coeff of Aysha (11.5-14.5) % Neut # (Auto) (1.40-6.50) K/uL Lymph # (Auto) (1.20-3.40) K/uL VBG pH (7.36-7.41) VBG pCO2 (38-50) mmHg Carbon Dioxide (21-32) mmol/L POC Total CO2 (24-31) mmol/L Anion Gap (3-11) POC BUN (7-18) mg/dl BUN (6-23) mg/dl Creatinine (0.6-1.4) mg/dl POC Creatinine (0.6-1.3) mg/dl BUN/Creatinine Ratio (10-20) Glucose (70-99(Fasting)) mg/dl POC Glucose (other) (70-99) mg/dl Phosphorus (2.5-4.9) mg/dl Troponin I High Sens 530.4 H* D (0-20) pg/ml Procalcitonin (0-0.5) ng/ml Urine Protein 1+ H (Negative) U Epithel Cells (Auto) 5-10 H (0-5) /lpf Diagnostic Findings SINGLE VIEW CHEST CLINICAL HISTORY: Sepsis. FINDINGS: 3 AP, portable, semierect chest radiographs are compared to study dated 09/22/2023. The examination is degraded by portable technique and patient rotation. The heart is enlarged. There is pulmonary vascular congestion. There is bibasilar airspace consolidation. Small pleural effusions are noted. No pneumothorax is seen. The skeletal structures are osteopenic. The bony thorax is grossly intact. Arthritic change is seen in the shoulders. IMPRESSION: 1. Cardiomegaly with pulmonary vascular congestion. 2. Small pleural effusions with bibasilar consolidation. Correlate clinically for evidence of pneumonia/aspiration pneumonitis. Radiographic follow-up to resolution is recommended. Medications Administered ER Medications Given: Normal saline 250ml bolus Metoprolol 5mg IV Midodrine ordered but not given Metoprolol 5mg IV Normal saline 250ml bolus Diltiazem 5mg/hr -> increased to 10mg/hr with 5mg IV bolus given 14:35 Sodium bicarb 50meq IV Sodium bicarb 150 meq in sterile water @ 125ml/hr Cefepime 2000mg IV Amiodarone IV bolus and drip ECG Rate (beats per minute): 146 Rhythm: atrial fibrillation Findings: + left axis deviation; no acute ischemic change Comparison ECG Date: from (Sep 18, 2023) Change: the following changes noted (atrial fibrillation is new) Code Status & VTE Plan Code Status All other treatment other than intubation and ventilation - discussed with patient, ER physician discussed with daughter VTE Prophylaxis Plan VTE Prophylaxis will be ordered: No Critical Care Time Critical Care Time: Yes Total Critical Care Time: 35 PG Care Time/CCT Total # of Minutes Spent Total Time Spent with Patient: Total time spent is greater than 50% in coordination of care (as documented) at patient's floor/unit and/or counseling patient: Critical Care Time: Yes Total Critical Care Time: 35 Coding Level of Care Code 01555 INT INP/OBS CARE 3/75MIN Diagnoses Acute kidney injury superimposed on CKD N17.9; N18.9 High anion gap metabolic acidosis E87.29 Hypotension I95.9 Atrial fibrillation with rapid ventricular response I48.91 COVID-19 U07.1 Pneumonia J18.9 Acute hypoxemic respiratory failure J96.01 Cardiomyopathy I42.9 Acute combined systolic and diastolic CHF, 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 Controlled type 2 diabetes mellitus with kidney complication, with long-term current use of insulin E11.29; Z79.4 BPH with obstruction/lower urinary tract symptoms N40.1; N13.8 Additional Codes Critical Care Time - Critical Care Time: Yes ([id number])
--- NOTE | 2023-10-03 16:42 | Procedure Note ---
Procedure Note Date of Service October 03, 2023 Note CENTRAL LINE PROCEDURE NOTE: Procedure: Temporary hemodialysis catheter placement Provider: Akash Rosario MD Indication: Need for central IV access for hemodialysis Anesthesia: 3 mL lidocaine 1% Site: Right internal jugular Procedure was emergent. Risks and benefits were discussed with the patient at bedside. He provided verbal consent. A time-out was completed verifying correct patient, procedure, site, positioning, and implants(s) or special equipment if applicable. Patients right neck was cleansed and draped in the typical sterile fashion using Chloraprep. The Internal Jugular Vein and Carotid Artery were identified using ultrasound. The superficial tissue was anesthetized using 3 mL of 1% lidocaine without epinephrine under direct visualization with the ultrasound. After adequate anesthetization was achieved, the Internal Jugular vein was cannulated under direct ultrasound guidance using an introducer needle on a syringe. Good venous blood return was maintained prior to removal of syringe from introducer needle. Using Seldinger Technique, a guide wire was advanced through the introducer needle without resistance. The introducer needle was removed and ultrasound images were verified of the guide wire within the Internal Jugular Vein. A small incision was made in penetrating fashion at the guide wire insertion site utilizing an 11 blade scalpel. The dilator was advanced to the vessel without resistance. Serial dilators were exchanged for the 13 cm temporary HD catheter which was advanced into the vessel without resistance. The guide wire was removed intact from the catheter without issue. Claves were placed on the pigtail with confirmation of good blood flow from each lumen. Each port was easily flushed with sterile saline. The HD lines were capped. The catheter was placed at the hub and sutured in place. BioPatch was applied to the catheter and a sterile Tegaderm dressing was applied over the catheter with careful attention to sterility. Patient tolerated procedure well. No immediate complications were met. Post procedure x-ray pending Coding CPT Codes Tubes, Drains, and Vasc Access - Tubes, Drains, and Vasc Access: [id number] Insertion of cannula for hemodialysis ([id number]) Tubes, Drains, and Vasc Access - Tubes, Drains, and Vasc Access: [id number] Ultrasound Guidance For Vascular ([id number]) [facility] [place] (Charges) Tubes, Drains, and Vasc Access Procedure 1: Tubes, Drains, and Vasc Access: [id number] Insertion of cannula for hemodialysis Procedure 2: Tubes, Drains, and Vasc Access: [id number] Ultrasound Guidance For Vascular
--- NOTE | 2023-10-03 16:47 | Nephrology Consultation ---
Date of Consultation October 03, 2023 Assessment & Plan (1) CKD (chronic kidney disease), stage V: (2) Hypotension: (3) High anion gap metabolic acidosis: Plan Mr. Gaviria was seen & examined in the EMD. POC discussed w/ Drs. Gray and Abraham. Admission to ICU for pressor therapy, IV amiodarone and temporary dialysis catheter has been coordinated. Will provide 1st run HD this evening for 2 hour w/ no UF to help correct azotemia and metabolic acidosis. Heparin free HD orders have been entered into EMR and HD RN has been notified 90 min visit History of Present Illness Reason for Consultation: ESKD-D History of Present Illness Mr. Gaviria is an 83 year old white male who is seen at the request of Dr. Gray to provide emergency HD. Information for the HPI is obtained from direct patient interview and review of the EMR. HPI is summarized as follows: Mr. Gaviria has stage G5 CKD due to DKD, hypertensive nephrosclerosis. Baseline Cr has been 5.5-5.9 since 12/[address] nSow. Mr. Gaviria underwent L RC AVF 12/[address] Godinez. Unfortunately, this failed. L BC AVF was then created 07/03/23 but requires transposition. His medical history is also significant for AODM, HTN, hypothyroidism, h/o kidney stones, hyperlipidemia, bilateral SNHL, and ASCVD. Mr. Gaviria was last hospitalized at [facility] 09/18/23-09/22/23 due to NSTEMI. TTE revealed LVEF 45-50% w/ WMA. Cardiac catheterization 09/19/23 revealed severe obstructive coronary disease involving the LAD and left circumflex systems (100% LAD after 1st diagonal branch, 90% proximal L circumflex). Medical management was recommended. 09/22/23 Mr. Gaviria was transferred to [facility] for ongoing PT. Creatinine remained 5.95 at that time. Recent blood work completed at [facility] revealed Cr ~ 7.0. Arrangements were made to have Dr. Godinez place an IJ TCC today and have patient start HD at the rehabilitation facility. Pre-procedure assessment by Anesthesiology revealed that the patient was hypotensive w/ SBP 80's with new onset atrial fibrillation w/ RVR (HR 140-160's). Laboratory testing revealed Cr 7.95, K4.5, CO2 9. Patient tested + for COVID. Surgery was cancelled and patient sent to [facility] for ongoing medical management. Medical update obtained from Dr. Gray. ICU admission coordinated w/ Dr. Rosario. He will place temporary HD catheter, provide pressor support and ICU care Allergies Allergy/AdvReac Type Severity Reaction Status Date / Time latex Allergy Mild SKIN Verified 10/03/23 14:52 IRRITATION Home Medications Medication Instructions Recorded Confirmed Type flash glucose scanning reader 07/19/20 10/03/23 History (FreeStyle Ritchie 14 Day Baker) flash glucose sensor (FreeStyle 07/19/20 10/03/23 History Ritchie 14 Day Sensor kit) nystatin 100,000 unit/gram topical 1 applic topical BID PRN Itching 06/13/22 10/03/23 Rx cream #30 grams furosemide 40 mg tablet 40 mg PO QAM 11/29/22 10/03/23 History pantoprazole 40 mg tablet,delayed 40 mg PO QAM 11/29/22 10/03/23 History release insulin regular human 100 unit/mL See Rx Instructions subcut TIDM 12/04/22 10/03/23 Rx injection solution (Novolin R #40 mL Regular U-100 Insulin) metoprolol succinate 50 mg 75 mg (1.5 x 50 mg) PO HS #135 tabs 01/09/23 10/03/23 Rx tablet,extended release 24 hr insulin syringe,safetyneedle 0.3 #700 ea 01/15/23 10/03/23 Rx mL 31 gauge x 15/64" (BD SafetyGlide Insulin Syringe) clonidine HCl 0.1 mg tablet 0.1 mg PO HS #90 tabs 03/16/23 10/03/23 Rx ezetimibe 10 mg tablet (Zetia) 10 mg PO QPM 04/13/23 10/03/23 History insulin glargine 100 unit/mL (3 27 unit subcut QPM 04/13/23 10/03/23 History mL) subcutaneous pen (Basaglar KwikPen U-100 Insulin) levothyroxine 50 mcg tablet 50 mcg PO QAM 04/13/23 10/03/23 History (Synthroid) sildenafil 100 mg tablet (Viagra) 100 mg PO ONCE PRN sexual activity 04/13/23 10/03/23 History triamcinolone acetonide 0.1 % 1 applic topical BID PRN Itching 04/13/23 10/03/23 History topical cream (Triderm) pen needle, diabetic 31 gauge x #200 ea 04/27/23 10/03/23 Rx 3/16" (BD Ultra-Fine Mini Pen Needle) ferrous sulfate 140 mg (45 mg 45 mg PO BID 05/23/23 10/03/23 History iron) tablet,extended release tramadol 50 mg tablet 50 mg PO Q8H PRN pain #10 tabs 07/03/23 10/03/23 Rx fluticasone propionate 50 1 spray intranasal BID #3 BTLS 07/16/23 10/03/23 Rx mcg/actuation nasal spray,suspension (Flonase Allergy Relief) hepatitis B vaccine 20 mcg/0.5 0.5 ml IM Q30D 2 doses #2.5 mL 07/26/23 10/03/23 Rx mL-adjuvant CpG 1018 (PF) IM syringe (Heplisav-B (PF)) alprazolam 0.5 mg tablet 0.5 mg PO DAILY PRN anxiety #20 08/08/23 10/03/23 Rx tabs iron sucrose 200 mg iron/10 mL 200 mg (10 mL) IV DAILY 5 doses 08/29/23 10/03/23 Rx intravenous solution (Venofer) tramadol 50 mg tablet 50 mg PO BID PRN pain 30 days #60 09/04/23 10/03/23 Rx tabs finasteride 5 mg tablet (Proscar) 5 mg PO DAILY #90 tabs 09/06/23 10/03/23 Rx tamsulosin 0.4 mg capsule 0.8 mg (2 x 0.4 mg) PO DAILY #180 09/06/23 10/03/23 Rx caps darbepoetin jude in polysorbat 60 60 mcg subcut .COMPLEX #4 mL 09/12/23 10/03/23 Rx mcg/mL in polysorbate injection (Aranesp) hepatitis B vaccine 20 mcg/0.5 0.5 ml IM Q30D 2 doses #2.5 mL 09/12/23 10/03/23 Rx mL-adjuvant CpG 1018 (PF) IM syringe (Heplisav-B (PF)) aspirin 81 mg tablet,delayed 81 mg PO QAM #0 tabs 09/22/23 10/03/23 Rx release atorvastatin 40 mg tablet 80 mg (2 x 40 mg) PO QAM #0 tabs 09/22/23 10/03/23 Rx clopidogrel 75 mg tablet 75 mg PO QAM #0 tabs 09/22/23 10/03/23 Rx furosemide 40 mg tablet 40 mg PO BID17 #0 tabs 09/22/23 10/03/23 Rx metoprolol succinate 50 mg 100 mg (2 x 50 mg) PO QAM #0 tabs 09/22/23 10/03/23 Rx tablet,extended release 24 hr nitroglycerin 0.4 mg/hr 1 patch transdermal QAM #0 ea 09/22/23 10/03/23 Rx transdermal 24 hour patch (Nitro-Dur) Patient History Medical History (Updated 10/03/23 @ 16:32 by Be Rosales MD) Chronic kidney disease BPH (benign prostatic hyperplasia) Arteriovenous fistula Left AVF creation 11/2022- now has occlusion- reason for upcoming procedure History of kidney stones Glaucoma HX OF- S/P TREATMENT- NO CURRENT ISSUES 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 CORDOVA CKD V Controlled type 2 diabetes mellitus with kidney complication, with long-term current use of insulin Hgb A1C 09/2022 was 7.7 Coronary arteriosclerosis S/p angioplasty 1990 (no stent or hx of CABG) Cyst of kidney, acquired Dyslipidemia Hypertension FOLLOWED BY DR. RAYO Hypothyroidism Obesity, Class II, BMI 35-39.9 Surgical History History of total right knee replacement H/O eye surgery RT/LEFT EYE FOR GLAUCOMA History of cataract surgery LEFT/RT History of total left knee replacement (TKR) X 2 History of lithotripsy a couple times History of tonsillectomy History of angioplasty at the age of 51 History of surgery scrotal hernia repair History of exploratory laparotomy History of umbilical hernia repair History of colonoscopy History of ear surgery Tympanic membrane repair--per pt a couple times Family History Father Cancer of kidney Hypertension Cardiac disorder Family/Other Cancer of kidney Bone cancer Mother Bone cancer Cardiac disorder Hypertension Other No family history of adverse response to anesthesia No family history of bleeding disorder Social History Smoking Status: Former smoker Tobacco Type: Cigarettes Second Hand Exposure: No; Do You Dip or Chew Tobacco: No; Hx Alcohol Use: No Hx Substance Use: No Preferred Language: Macedonian Communication Ability: Effective Visual Impairment: Limited Hearing Ability: Normal Ordnance Artificer Helper Required: No Beliefs That Will Affect Care: None marital status: / Current Living Situation: Alone current occupational status: employed 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 How many Children do You have: 1 How many Children do You have Comment: Stepdaughter, 2 grandchildren Feels Safe at Home: Yes Diet: regular caffeine: Yes during the past year weight has: remained stable Dental Care, Regularly: Yes Physical Activity Frequency: 5-6 Times per Week Seatbelt Use: always Sunscreen Use: No Assistive Devices: Cane and Walker Review of Systems Constitutional: no fever Eyes: no problem reported Ear, Nose, Mouth, Throat: no problem reported Respiratory: no cough and no dyspnea Cardiovascular: + palpitations Gastrointestinal: no abdominal pain, no nausea, no vomiting and no diarrhea/loose stools Physical Exam Constitutional: + ill appearing Eyes: PERRL, conjunctivae normal, anicteric sclerae ENMT: external ear and nose normal, oropharynx normal Neck: trachea midline, no thyromegaly Respiratory: normal respiratory effort, lungs clear to auscultation Cardiovascular: Rate/Rhythm: + tachycardic and + irregularly irregular Extremities: no edema Gastrointestinal (Abdomen): normal bowel sounds, soft, nontender, no hepatosplenomegaly Results & Data Vital Signs (Past 12 Hours) Vital Signs Temp Pulse Pulse Resp BP BP Pulse Ox 10/03/23 15:42 35.7 C L 10/03/23 15:40 83/65 L 10/03/23 15:40 116 H 15 99 10/03/23 15:35 135 H 17 98 10/03/23 15:35 94/65 L 10/03/23 15:30 102/71 10/03/23 15:30 119 H 15 99 10/03/23 15:27 120 H 91/76 L 10/03/23 15:27 116 H 91/76 L 10/03/23 15:26 130 H 91/76 L 10/03/23 15:25 122 H 20 100 10/03/23 15:25 91/76 L 10/03/23 15:20 126 H 18 99 10/03/23 15:20 90/69 L 10/03/23 15:18 120 H 20 99 10/03/23 15:18 89/64 L 10/03/23 15:15 127 H 17 100 10/03/23 15:11 84/57 L 10/03/23 15:11 121 H 19 100 10/03/23 15:10 67 16 100 10/03/23 15:05 84/66 L 10/03/23 15:05 104 H 19 95 10/03/23 15:00 91/68 L 10/03/23 15:00 112 H 17 99 10/03/23 14:55 120 H 18 99 10/03/23 14:55 89/60 L 10/03/23 14:53 73/60 L 10/03/23 14:53 124 H 20 99 10/03/23 14:52 126 H 17 99 10/03/23 14:52 76/59 L 10/03/23 14:50 124 H 17 99 10/03/23 14:50 85/61 L 10/03/23 14:47 122 H 18 99 10/03/23 14:47 94/68 L 10/03/23 14:45 74 18 98 10/03/23 14:45 89/55 L 10/03/23 14:43 119 H 16 99 10/03/23 14:43 93/48 L 10/03/23 14:41 77 20 100 10/03/23 14:41 86/53 L 10/03/23 14:40 73 18 96 10/03/23 14:37 77 17 99 10/03/23 14:37 92/58 L 10/03/23 14:35 105 H 18 98 10/03/23 14:35 90/65 L 10/03/23 14:30 121 H 17 100 10/03/23 14:30 91/56 L 10/03/23 14:25 91/64 L 10/03/23 14:25 116 H 24 100 10/03/23 14:20 67 18 98 10/03/23 14:20 83/56 L 10/03/23 14:18 114 H 19 97 10/03/23 14:18 85/58 L 10/03/23 14:15 132 H 19 98 10/03/23 14:15 80/58 L 10/03/23 14:10 117 H 19 98 10/03/23 14:10 90/71 L 10/03/23 14:09 134 H 10/03/23 14:05 90/66 L 10/03/23 14:05 88 17 97 10/03/23 14:00 87 20 96 10/03/23 14:00 96/67 L 10/03/23 13:55 133 H 16 99 10/03/23 13:55 105/70 10/03/23 13:54 106/71 10/03/23 13:54 141 H 15 100 10/03/23 13:54 144 H 18 105/70 100 10/03/23 13:50 97/71 L 10/03/23 13:50 141 H 22 100 10/03/23 13:45 140 H 18 98 10/03/23 13:45 94/70 L 10/03/23 13:40 85 19 99 10/03/23 13:40 94/67 L 10/03/23 13:40 90 10/03/23 13:36 123 H 20 93 10/03/23 13:35 81 18 98 10/03/23 13:35 94/69 L 10/03/23 13:31 87 18 99 10/03/23 13:31 90/64 L 10/03/23 13:30 78 19 98 10/03/23 13:25 132 H 17 99 10/03/23 13:20 138 H 19 100 10/03/23 13:20 131 H 89/68 L 10/03/23 13:17 89/68 L 10/03/23 13:17 133 H 21 100 10/03/23 13:15 82 18 98 10/03/23 13:10 128 H 18 99 10/03/23 13:05 133 H 19 99 10/03/23 13:00 127 H 19 10/03/23 12:59 77/64 L 10/03/23 12:59 140 H 20 10/03/23 12:55 94 H 15 10/03/23 12:53 95 H 28 H 10/03/23 12:53 86/56 L 10/03/23 12:51 73/53 L 10/03/23 12:51 139 H 25 H 10/03/23 12:50 139 H 23 10/03/23 12:48 140 H 21 10/03/23 12:48 75/42 L 10/03/23 12:45 151 H 20 10/03/23 12:42 160 H 18 74/42 L 93 10/03/23 12:40 161 H 19 10/03/23 12:37 150 H 10/03/23 12:35 144 H 22 10/03/23 12:34 155 H O2 Del Method 10/03/23 15:42 10/03/23 15:40 10/03/23 15:40 Room Air 10/03/23 15:35 10/03/23 15:35 10/03/23 15:30 10/03/23 15:30 10/03/23 15:27 10/03/23 15:27 10/03/23 15:26 10/03/23 15:25 10/03/23 15:25 10/03/23 15:20 10/03/23 15:20 10/03/23 15:18 10/03/23 15:18 10/03/23 15:15 10/03/23 15:11 10/03/23 15:11 10/03/23 15:10 10/03/23 15:05 10/03/23 15:05 10/03/23 15:00 10/03/23 15:00 10/03/23 14:55 10/03/23 14:55 10/03/23 14:53 10/03/23 14:53 10/03/23 14:52 10/03/23 14:52 10/03/23 14:50 10/03/23 14:50 10/03/23 14:47 10/03/23 14:47 10/03/23 14:45 10/03/23 14:45 10/03/23 14:43 10/03/23 14:43 10/03/23 14:41 10/03/23 14:41 10/03/23 14:40 10/03/23 14:37 10/03/23 14:37 10/03/23 14:35 10/03/23 14:35 10/03/23 14:30 10/03/23 14:30 10/03/23 14:25 10/03/23 14:25 10/03/23 14:20 10/03/23 14:20 10/03/23 14:18 10/03/23 14:18 10/03/23 14:15 10/03/23 14:15 10/03/23 14:10 10/03/23 14:10 10/03/23 14:09 10/03/23 14:05 10/03/23 14:05 10/03/23 14:00 10/03/23 14:00 10/03/23 13:55 10/03/23 13:55 10/03/23 13:54 10/03/23 13:54 10/03/23 13:54 Room Air 10/03/23 13:50 10/03/23 13:50 10/03/23 13:45 10/03/23 13:45 10/03/23 13:40 10/03/23 13:40 10/03/23 13:40 10/03/23 13:36 Room Air 10/03/23 13:35 10/03/23 13:35 10/03/23 13:31 10/03/23 13:31 10/03/23 13:30 10/03/23 13:25 10/03/23 13:20 10/03/23 13:20 10/03/23 13:17 10/03/23 13:17 10/03/23 13:15 10/03/23 13:10 10/03/23 13:05 10/03/23 13:00 10/03/23 12:59 10/03/23 12:59 10/03/23 12:55 10/03/23 12:53 10/03/23 12:53 10/03/23 12:51 10/03/23 12:51 10/03/23 12:50 10/03/23 12:48 10/03/23 12:48 10/03/23 12:45 10/03/23 12:42 Room Air 10/03/23 12:40 10/03/23 12:37 10/03/23 12:35 10/03/23 12:34 Laboratory Results Laboratory Results WBC 9.68 K/ul (4.8-10.8) 10/03/23 13:15 RBC 3.95 M/uL (4.70-6.10) L 10/03/23 13:15 Hgb 11.3 g/dl (14.0-18.0) L 10/03/23 13:15 POC Hgb 11.6 g/dl (14.0-18.0) L 10/03/23 13:24 Hct 35.4 % (42.0-52.0) L 10/03/23 13:15 POC Hct 34 % (42-52) L 10/03/23 13:24 MCV 89.6 fL (80.0-100.0) 10/03/23 13:15 MCH 28.6 pg (25.0-34.0) 10/03/23 13:15 MCHC 31.9 g/dL (32.0-36.0) L 10/03/23 13:15 RDW Std Deviation 49.9 fL (36.4-46.3) H 10/03/23 13:15 RDW Coeff of Aysha 15.2 % (11.5-14.5) H 10/03/23 13:15 Plt Count 293 K/uL (130-400) 10/03/23 13:15 MPV 10.6 fL (9.4-12.4) 10/03/23 13:15 Immature Gran % (Auto) 0.6 % 10/03/23 13:15 Neut % (Auto) 92.9 % 10/03/23 13:15 Lymph % (Auto) 1.2 % 10/03/23 13:15 [place] % (Auto) 5.2 % 10/03/23 13:15 Eos % (Auto) 0.0 % 10/03/23 13:15 Baso % (Auto) 0.1 % 10/03/23 13:15 Neut # (Auto) 8.99 K/uL (1.40-6.50) H 10/03/23 13:15 Lymph # (Auto) 0.12 K/uL (1.20-3.40) L 10/03/23 13:15 [place] # (Auto) 0.50 K/uL (0.11-0.59) 10/03/23 13:15 Eos # (Auto) 0.00 K/uL (0.00-0.50) 10/03/23 13:15 Baso # (Auto) 0.01 K/uL (0.00-0.20) 10/03/23 13:15 Immature Gran # (Auto) 0.06 K/uL (0.01-0.20) 10/03/23 13:15 PT 11.9 Seconds (9.0-12.0) 10/03/23 13:15 INR 1.1 (0.9-1.1) 10/03/23 13:15 VBG pH 7.06 (7.36-7.41) L 10/03/23 13:27 VBG pCO2 36 mmHg (38-50) L 10/03/23 13:27 VBG pO2 33 mmHg 10/03/23 13:27 VBG HCO3 10 mmol/L 10/03/23 13:27 VBG O2 Saturation < 60.0 % 10/03/23 13:27 VBG Base Excess -19.3 mEq/L 10/03/23 13:27 POC Sodium 135 mmol/L (135-144) 10/03/23 13:24 Sodium 136 mmol/L (136-145) 10/03/23 13:15 POC Potassium 4.5 mmol/L (3.3-5.0) 10/03/23 13:24 Potassium 4.5 mmol/L (3.5-5.1) 10/03/23 13:15 POC Chloride 106 mmol/L (101-112) 10/03/23 13:24 Chloride 101 mmol/L (98-107) 10/03/23 13:15 Carbon Dioxide 9 mmol/L (21-32) L* 10/03/23 13:15 POC Total CO2 11 mmol/L (24-31) L 10/03/23 13:24 Anion Gap 26 (3-11) H 10/03/23 13:15 POC Anion Gap 24.0 mmol/L (16-25) 10/03/23 13:24 POC BUN > 140 mg/dl (7-18) H* 10/03/23 13:24 BUN 205 mg/dl (6-23) H 10/03/23 13:15 Creatinine 7.95 mg/dl (0.6-1.4) H* 10/03/23 13:15 POC Creatinine 9.5 mg/dl (0.6-1.3) H* 10/03/23 13:24 Est Cr Clr Drug Dosing 7.9 ml/min 10/03/23 13:15 Est GFR ( Amer) 6.6 ml/min 10/03/23 13:15 Est GFR (Non-Af Amer) 5.7 ml/min 10/03/23 13:15 BUN/Creatinine Ratio 25.8 (10-20) H 10/03/23 13:15 Glucose 142 mg/dl (70-99(Fasting)) H 10/03/23 13:15 POC Glucose (other) 143 mg/dl (70-99) H 10/03/23 13:24 Lactate 1.7 mmol/L (0.4-2.0) 10/03/23 13:30 Calcium 9.9 mg/dl (8.6-10.3) 10/03/23 13:15 POC Ioniz Calcium Ivelisse 1.26 mmol/l (1.12-1.32) 10/03/23 13:24 Phosphorus 9.6 mg/dl (2.5-4.9) H 10/03/23 13:15 Magnesium 1.9 mg/dl (1.7-2.4) 10/03/23 13:15 Total Bilirubin 0.4 mg/dl (0.2-1.0) 10/03/23 13:15 Direct Bilirubin 0.1 mg/dl (0-0.2) 10/03/23 13:15 AST 32 U/L (13-39) 10/03/23 13:15 ALT 44 U/L (7-52) 10/03/23 13:15 Alkaline Phosphatase 86 U/L (34-104) 10/03/23 13:15 Troponin I High Sens 530.4 pg/ml (0-20) H* D 10/03/23 15:17 Total Protein 7.3 gm/dl (6.0-8.3) 10/03/23 13:15 Albumin 3.8 gm/dl (3.4-5.0) 10/03/23 13:15 Procalcitonin 1.73 ng/ml (0-0.5) H 10/03/23 13:15 Urine Color Yellow 10/03/23 13:51 Urine Appearance Clear (Clear) 10/03/23 13:51 Urine pH 5.0 (4.5-7.5) 10/03/23 13:51 Ur Specific [place] 1.013 (1.000-1.030) 10/03/23 13:51 Urine Protein 1+ (Negative) H 10/03/23 13:51 Urine Glucose (UA) Negative (Negative) 10/03/23 13:51 Urine Ketones Negative (Negative) 10/03/23 13:51 Urine Blood Negative (Negative) 10/03/23 13:51 Urine Nitrite Negative (Negative) 10/03/23 13:51 Urine Bilirubin Negative (Negative) 10/03/23 13:51 Urine Urobilinogen Negative (Negative) 10/03/23 13:51 Ur Leukocyte Esterase Negative (Negative) 10/03/23 13:51 Urine WBC (Auto) 1-5 /hpf (0-5) 10/03/23 13:51 Urine RBC (Auto) 0-4 /hpf (0-4) 10/03/23 13:51 U Hyaline Cast (Auto) 0 /lpf (0-5) 10/03/23 13:51 U Epithel Cells (Auto) 5-10 /lpf (0-5) H 10/03/23 13:51 Urine Bacteria (Auto) Negative (Negative) 10/03/23 13:51 Urine Yeast Not Reportable 10/03/23 13:51 PG Care Time/CCT Total # of Minutes Spent Total Time Spent with Patient: Total time spent is greater than 50% in coordination of care (as documented) at patient's floor/unit and/or counseling patient: Coding Level of Care Code 26625 IN/OBS CONSULT LVL 5,80M Diagnoses CKD (chronic kidney disease), stage V N18.5 Hypotension I95.9 High anion gap metabolic acidosis E87.29
--- NOTE | 2023-10-03 16:55 | Critical Care Consultation ---
Date of Consultation October 03, 2023 Assessment & Plan (1) Acute kidney injury superimposed on CKD: (2) Cardiomyopathy: (3) Acute combined systolic and diastolic CHF, NYHA class 3: Plan Impression: 83-year-old male with multiple medical problems delineated on admission H&P. His biggest critical care issues are atrial fibrillation with rapid ventricular response, hypotension, severe acidosis, end-stage renal disease with severe uremia needing urgent dialysis. Temporary HD catheter was placed in the emergency room under ultrasound guidance. Please refer to separate dialysis catheter placement note. Recommendations: 1. Neurologic: Patient may have some underlying encephalopathy related to significant uremia and acid-base disturbances. Will continue to follow as his metabolic disarray is corrected. Hopefully these result in improved sensorium. If not additional evaluation may be warranted. 2. Cardiovascular: Atrial fibrillation with rapid ventricular response. Amiodarone per cardiology. Defer on anticoagulation for now. Depending on the patient's blood pressure, initiation of beta-aimee may be appropriate. He has severe three-vessel coronary disease which is being managed medically. No indication for continuing to trend troponins as the patient is not a candidate for additional advanced therapies currently. Will defer to cardiology as to whether or not inotropic agents such as dobutamine or milrinone might be appropriate however these may aggravate his atrial arrhythmia. Patient may require pressor support during dialysis so Riccardo-Synephrine will be ordered to maintain a systolic blood pressure above 100. Would be reluctant to use other sympathomimetics which may potentially aggravate his atrial arrhythmia 3. Pulmonary: Hypoxemic respiratory failure. Secondary to volume overload, COVID, and basilar atelectasis. Continue oxygen as needed. Will see how he responds to volume removal with dialysis. Incentive spirometry. See comments regarding COVID below. Patient does state that he does not want to pursue intubation mechanical ventilation in the event of respiratory deterioration or arrest. Unclear if he would want CPR or cardioversion and this will need to be addressed. 4. Renal: End-stage renal disease now requiring dialysis. Significantly uremic. He has refractory acidosis and is currently on a bicarb infusion. Will defer bicarb to nephrology. Hopefully with dialysis we should be able to correct his acidosis as well as his significant uremia. Phosphate also elevated. Will defer to nephrology as to whether or not phosphate binders are required. Danielson catheter has been placed. The patient has a history of BPH. 5. ID: COVID-positive. The patient is afebrile currently with a normal white blood cell count. His procalcitonin is mildly elevated although the significance with end-stage renal disease requiring dialysis is somewhat unclear. Inflammatory markers such as CRP are likely to be unreliable as well with the patient's current medical condition. Given his x-ray abnormalities, seems prudent to initiate dexamethasone 6 mg daily. He did receive a dose of cefepime in the emergency room. His chest x-ray does not appear significantly different than when he was discharged from the hospital 09/22/2023 so I think underlying bacterial pneumonia is probably less likely and antibiotics will be held for now. If he coughs up phlegm, sputum culture should be obtained. Will check follow-up chest x-ray in a.m. 6. GI: No current issues. Diet as tolerated. 7. Heme-onc: Mild anemia likely secondary to chronic kidney disease. No evidence of acute blood loss and no indication for transfusion currently. Continue to follow. 8. Endocrine: Glycemic control per protocol. Patient's overall prognosis is guarded. Unclear how he will tolerate dialysis with his current hemodynamics. He is critically ill with multisystem organ dysfunction and significant possibility of clinical decline. A total of 75 minutes in critical care time was spent in evaluation management stabilization of this patient exclusive of procedures. History of Present Illness History of Present Illness Asked by hospitalist to assist in evaluation and management this patient with end-stage renal disease needing urgent dialysis, acidosis, atrial fibrillation with rapid ventricular response and hypotension. History is obtained from d iscussion with the patient as well as discussion with other medical consultants and review the electronic medical record. Patient is an 83-year-old male who was dismissed from the hospital 09/22/2023 with a diagnosis of coronary artery disease. He had coronary angiography performed during that hospitalization and was found to have three-vessel disease. Stenting was not performed and medical management was attempted. The patient has a history of chronic kidney disease. He was discharged to rehab. He was sent from rehab to the outpatient setting today to get a tunneled HD cath as the patient's kidney function has continued to decline. In the preprocedural assessment he was noted to be in atrial fibrillation with rapid ventricular response and hypotensive. He was taken to the emergency room. He received a pushes of IV metoprolol and was transition to a diltiazem infusion. This intermittently was successful in improving the patient's overall rate. His blood pressure tended to improve with a lower heart rate. Cardiology recommended initiation of amiodarone which is being started currently. Nephrology was contacted who recommended urgent hemodialysis given the patient's refractory acidosis and hyperkalemia. We are consulted to consult with the patient being in the intensive care unit as he will likely require vasopressor support during dialysis as well as to provide temporary HD access. The patient was also found to be COVID-positive. The patient does report cough which is nonproductive. He does not report fevers chills or night sweats. He is not experiencing chest pain or palpitations. He does have total body edema. Allergies Allergy/AdvReac Type Severity Reaction Status Date / Time latex Allergy Mild SKIN Verified 10/03/23 14:52 IRRITATION Home Medications Medication Instructions Recorded Confirmed Type flash glucose scanning reader 07/19/20 10/03/23 History (FreeStyle [place]ie 14 Day [place]) flash glucose sensor (FreeStyle 07/19/20 10/03/23 History Ritchie 14 Day Sensor kit) nystatin 100,000 unit/gram topical 1 applic topical BID PRN Itching 06/13/22 10/03/23 Rx cream #30 grams furosemide 40 mg tablet 40 mg PO QAM 11/29/22 10/03/23 History pantoprazole 40 mg tablet,delayed 40 mg PO QAM 11/29/22 10/03/23 History release insulin regular human 100 unit/mL See Rx Instructions subcut TIDM 12/04/22 10/03/23 Rx injection solution (Novolin R #40 mL Regular U-100 Insulin) metoprolol succinate 50 mg 75 mg (1.5 x 50 mg) PO HS #135 tabs 01/09/23 10/03/23 Rx tablet,extended release 24 hr insulin syringe,safetyneedle 0.3 #700 ea 01/15/23 10/03/23 Rx mL 31 gauge x 15/64" (BD SafetyGlide Insulin Syringe) clonidine HCl 0.1 mg tablet 0.1 mg PO HS #90 tabs 03/16/23 10/03/23 Rx ezetimibe 10 mg tablet (Zetia) 10 mg PO QPM 04/13/23 10/03/23 History insulin glargine 100 unit/mL (3 27 unit subcut QPM 04/13/23 10/03/23 History mL) subcutaneous pen (Basaglar KwikPen U-100 Insulin) levothyroxine 50 mcg tablet 50 mcg PO QAM 04/13/23 10/03/23 History (Synthroid) sildenafil 100 mg tablet (Viagra) 100 mg PO ONCE PRN sexual activity 04/13/23 10/03/23 History triamcinolone acetonide 0.1 % 1 applic topical BID PRN Itching 04/13/23 10/03/23 History topical cream (Triderm) pen needle, diabetic 31 gauge x #200 ea 04/27/23 10/03/23 Rx 3/16" (BD Ultra-Fine Mini Pen Needle) ferrous sulfate 140 mg (45 mg 45 mg PO BID 05/23/23 10/03/23 History iron) tablet,extended release tramadol 50 mg tablet 50 mg PO Q8H PRN pain #10 tabs 07/03/23 10/03/23 Rx fluticasone propionate 50 1 spray intranasal BID #3 BTLS 07/16/23 10/03/23 Rx mcg/actuation nasal spray,suspension (Flonase Allergy Relief) hepatitis B vaccine 20 mcg/0.5 0.5 ml IM Q30D 2 doses #2.5 mL 07/26/23 10/03/23 Rx mL-adjuvant CpG 1018 (PF) IM syringe (Heplisav-B (PF)) alprazolam 0.5 mg tablet 0.5 mg PO DAILY PRN anxiety #20 08/08/23 10/03/23 Rx tabs iron sucrose 200 mg iron/10 mL 200 mg (10 mL) IV DAILY 5 doses 08/29/23 10/03/23 Rx intravenous solution (Venofer) tramadol 50 mg tablet 50 mg PO BID PRN pain 30 days #60 09/04/23 10/03/23 Rx tabs finasteride 5 mg tablet (Proscar) 5 mg PO DAILY #90 tabs 09/06/23 10/03/23 Rx tamsulosin 0.4 mg capsule 0.8 mg (2 x 0.4 mg) PO DAILY #180 09/06/23 10/03/23 Rx caps darbepoetin jude in polysorbat 60 60 mcg subcut .COMPLEX #4 mL 09/12/23 10/03/23 Rx mcg/mL in polysorbate injection (Aranesp) hepatitis B vaccine 20 mcg/0.5 0.5 ml IM Q30D 2 doses #2.5 mL 09/12/23 10/03/23 Rx mL-adjuvant CpG 1018 (PF) IM syringe (Heplisav-B (PF)) aspirin 81 mg tablet,delayed 81 mg PO QAM #0 tabs 09/22/23 10/03/23 Rx release atorvastatin 40 mg tablet 80 mg (2 x 40 mg) PO QAM #0 tabs 09/22/23 10/03/23 Rx clopidogrel 75 mg tablet 75 mg PO QAM #0 tabs 09/22/23 10/03/23 Rx furosemide 40 mg tablet 40 mg PO BID17 #0 tabs 09/22/23 10/03/23 Rx metoprolol succinate 50 mg 100 mg (2 x 50 mg) PO QAM #0 tabs 09/22/23 10/03/23 Rx tablet,extended release 24 hr nitroglycerin 0.4 mg/hr 1 patch transdermal QAM #0 ea 09/22/23 10/03/23 Rx transdermal 24 hour patch (Nitro-Dur) Patient History Medical History (Updated 10/03/23 @ 16:32 by Be Rosales MD) Chronic kidney disease BPH (benign prostatic hyperplasia) Arteriovenous fistula Left AVF creation 11/2022- now has occlusion- reason for upcoming procedure History of kidney stones Glaucoma HX OF- S/P TREATMENT- NO CURRENT ISSUES 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 CORDOVA CKD V Controlled type 2 diabetes mellitus with kidney complication, with long-term current use of insulin Hgb A1C 09/2022 was 7.7 Coronary arteriosclerosis S/p angioplasty 1990 (no stent or hx of CABG) Cyst of kidney, acquired Dyslipidemia Hypertension FOLLOWED BY DR. RAYO Hypothyroidism Obesity, Class II, BMI 35-39.9 Surgical History History of total right knee replacement H/O eye surgery RT/LEFT EYE FOR GLAUCOMA History of cataract surgery LEFT/RT History of total left knee replacement (TKR) X 2 History of lithotripsy a couple times History of tonsillectomy History of angioplasty at the age of 51 History of surgery scrotal hernia repair History of exploratory laparotomy History of umbilical hernia repair History of colonoscopy History of ear surgery Tympanic membrane repair--per pt a couple times Family History Father Cancer of kidney Hypertension Cardiac disorder Family/Other Cancer of kidney Bone cancer Mother Bone cancer Cardiac disorder Hypertension Other No family history of adverse response to anesthesia No family history of bleeding disorder Social History Smoking Status: Former smoker Tobacco Type: Cigarettes Second Hand Exposure: No; Do You Dip or Chew Tobacco: No; Hx Alcohol Use: No Hx Substance Use: No Preferred Language: Uzbek Communication Ability: Effective Visual Impairment: Limited Hearing Ability: Normal Secretary To The Vice President Required: No Beliefs That Will Affect Care: None marital status: / Current Living Situation: Alone current occupational status: employed 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 No additions or deletions Physical Exam Constitutional: Elderly frail male. Eyes: EOM intact bilaterally Neck: normal visual inspection and trachea midline Respiratory: + cough; no respiratory distress, no lab ored breathing and not tachypneic Auscultation: + crackles and + rhonchi; no wheezes Cardiovascular: Rate/Rhythm: regular rate Heart Sounds: normal S1, normal S2 and + murmur Extremities: + AV fistula (with thrill and high pitched bruit LUE BC, RC without thrill or bruit); no edema Gastrointestinal (Abdomen): normal bowel sounds, soft, nontender, no hepatosplenomegaly Musculoskeletal: Extremities: no cyanosis and no clubbing Skin: normal turgor; no lesions Neurologic: Motor/Sensory: no tremor and no asterixis Psychiatric: Orientation: alert and oriented x 3 Results & Data Results & Data Vital Signs (Past 12 Hours) Vital Signs Temp Pulse Pulse Resp BP BP Pulse Ox 10/03/23 15:42 35.7 C L 10/03/23 15:40 83/65 L 10/03/23 15:40 116 H 15 99 10/03/23 15:35 135 H 17 98 10/03/23 15:35 94/65 L 10/03/23 15:30 102/71 10/03/23 15:30 119 H 15 99 10/03/23 15:27 120 H 91/76 L 10/03/23 15:27 116 H 91/76 L 10/03/23 15:26 130 H 91/76 L 10/03/23 15:25 122 H 20 100 10/03/23 15:25 91/76 L 10/03/23 15:20 126 H 18 99 10/03/23 15:20 90/69 L 10/03/23 15:18 120 H 20 99 10/03/23 15:18 89/64 L 10/03/23 15:15 127 H 17 100 10/03/23 15:11 84/57 L 10/03/23 15:11 121 H 19 100 10/03/23 15:10 67 16 100 10/03/23 15:05 84/66 L 10/03/23 15:05 104 H 19 95 10/03/23 15:00 91/68 L 10/03/23 15:00 112 H 17 99 10/03/23 14:55 120 H 18 99 10/03/23 14:55 89/60 L 10/03/23 14:53 73/60 L 10/03/23 14:53 124 H 20 99 10/03/23 14:52 126 H 17 99 10/03/23 14:52 76/59 L 10/03/23 14:50 124 H 17 99 10/03/23 14:50 85/61 L 10/03/23 14:47 122 H 18 99 10/03/23 14:47 94/68 L 10/03/23 14:45 74 18 98 10/03/23 14:45 89/55 L 10/03/23 14:43 119 H 16 99 10/03/23 14:43 93/48 L 10/03/23 14:41 77 20 100 10/03/23 14:41 86/53 L 10/03/23 14:40 73 18 96 10/03/23 14:37 77 17 99 10/03/23 14:37 92/58 L 10/03/23 14:35 105 H 18 98 10/03/23 14:35 90/65 L 10/03/23 14:30 121 H 17 100 10/03/23 14:30 91/56 L 10/03/23 14:25 91/64 L 10/03/23 14:25 116 H 24 100 10/03/23 14:20 67 18 98 10/03/23 14:20 83/56 L 10/03/23 14:18 114 H 19 97 10/03/23 14:18 85/58 L 10/03/23 14:15 132 H 19 98 10/03/23 14:15 80/58 L 10/03/23 14:10 117 H 19 98 10/03/23 14:10 90/71 L 10/03/23 14:09 134 H 10/03/23 14:05 90/66 L 10/03/23 14:05 88 17 97 10/03/23 14:00 87 20 96 10/03/23 14:00 96/67 L 10/03/23 13:55 133 H 16 99 10/03/23 13:55 105/70 10/03/23 13:54 106/71 10/03/23 13:54 141 H 15 100 10/03/23 13:54 144 H 18 105/70 100 10/03/23 13:50 97/71 L 10/03/23 13:50 141 H 22 100 10/03/23 13:45 140 H 18 98 10/03/23 13:45 94/70 L 10/03/23 13:40 85 19 99 10/03/23 13:40 94/67 L 10/03/23 13:40 90 10/03/23 13:36 123 H 20 93 10/03/23 13:35 81 18 98 10/03/23 13:35 94/69 L 10/03/23 13:31 87 18 99 10/03/23 13:31 90/64 L 10/03/23 13:30 78 19 98 10/03/23 13:25 132 H 17 99 10/03/23 13:20 138 H 19 100 10/03/23 13:20 131 H 89/68 L 10/03/23 13:17 89/68 L 10/03/23 13:17 133 H 21 100 10/03/23 13:15 82 18 98 10/03/23 13:10 128 H 18 99 10/03/23 13:05 133 H 19 99 10/03/23 13:00 127 H 19 10/03/23 12:59 77/64 L 10/03/23 12:59 140 H 20 10/03/23 12:55 94 H 15 10/03/23 12:53 95 H 28 H 10/03/23 12:53 86/56 L 10/03/23 12:51 73/53 L 10/03/23 12:51 139 H 25 H 10/03/23 12:50 139 H 23 10/03/23 12:48 140 H 21 10/03/23 12:48 75/42 L 10/03/23 12:45 151 H 20 10/03/23 12:42 160 H 18 74/42 L 93 10/03/23 12:40 161 H 19 10/03/23 12:37 150 H 10/03/23 12:35 144 H 22 10/03/23 12:34 155 H O2 Del Method 10/03/23 15:42 10/03/23 15:40 10/03/23 15:40 Room Air 10/03/23 15:35 10/03/23 15:35 10/03/23 15:30 10/03/23 15:30 10/03/23 15:27 10/03/23 15:27 10/03/23 15:26 10/03/23 15:25 10/03/23 15:25 10/03/23 15:20 10/03/23 15:20 10/03/23 15:18 10/03/23 15:18 10/03/23 15:15 10/03/23 15:11 10/03/23 15:11 10/03/23 15:10 10/03/23 15:05 10/03/23 15:05 10/03/23 15:00 10/03/23 15:00 10/03/23 14:55 10/03/23 14:55 10/03/23 14:53 10/03/23 14:53 10/03/23 14:52 10/03/23 14:52 10/03/23 14:50 10/03/23 14:50 10/03/23 14:47 10/03/23 14:47 10/03/23 14:45 10/03/23 14:45 10/03/23 14:43 10/03/23 14:43 10/03/23 14:41 10/03/23 14:41 10/03/23 14:40 10/03/23 14:37 10/03/23 14:37 10/03/23 14:35 10/03/23 14:35 10/03/23 14:30 10/03/23 14:30 10/03/23 14:25 10/03/23 14:25 10/03/23 14:20 10/03/23 14:20 10/03/23 14:18 10/03/23 14:18 10/03/23 14:15 10/03/23 14:15 10/03/23 14:10 10/03/23 14:10 10/03/23 14:09 10/03/23 14:05 10/03/23 14:05 10/03/23 14:00 10/03/23 14:00 10/03/23 13:55 10/03/23 13:55 10/03/23 13:54 10/03/23 13:54 10/03/23 13:54 Room Air 10/03/23 13:50 10/03/23 13:50 10/03/23 13:45 10/03/23 13:45 10/03/23 13:40 10/03/23 13:40 10/03/23 13:40 10/03/23 13:36 Room Air 10/03/23 13:35 10/03/23 13:35 10/03/23 13:31 10/03/23 13:31 10/03/23 13:30 10/03/23 13:25 10/03/23 13:20 10/03/23 13:20 10/03/23 13:17 10/03/23 13:17 10/03/23 13:15 10/03/23 13:10 10/03/23 13:05 10/03/23 13:00 10/03/23 12:59 10/03/23 12:59 10/03/23 12:55 10/03/23 12:53 10/03/23 12:53 10/03/23 12:51 10/03/23 12:51 10/03/23 12:50 10/03/23 12:48 10/03/23 12:48 10/03/23 12:45 10/03/23 12:42 Room Air 10/03/23 12:40 10/03/23 12:37 10/03/23 12:35 10/03/23 12:34 Critical Care Results & Data Vital Signs (Past 12 Hours) Vital Signs Temp Pulse Pulse Resp BP BP Pulse Ox 10/03/23 15:42 35.7 C L 10/03/23 15:40 83/65 L 10/03/23 15:40 116 H 15 99 10/03/23 15:35 135 H 17 98 10/03/23 15:35 94/65 L 10/03/23 15:30 102/71 10/03/23 15:30 119 H 15 99 10/03/23 15:27 120 H 91/76 L 10/03/23 15:27 116 H 91/76 L 10/03/23 15:26 130 H 91/76 L 10/03/23 15:25 122 H 20 100 10/03/23 15:25 91/76 L 10/03/23 15:20 126 H 18 99 10/03/23 15:20 90/69 L 10/03/23 15:18 120 H 20 99 10/03/23 15:18 89/64 L 10/03/23 15:15 127 H 17 100 10/03/23 15:11 84/57 L 10/03/23 15:11 121 H 19 100 10/03/23 15:10 67 16 100 10/03/23 15:05 84/66 L 10/03/23 15:05 104 H 19 95 10/03/23 15:00 91/68 L 10/03/23 15:00 112 H 17 99 10/03/23 14:55 120 H 18 99 10/03/23 14:55 89/60 L 10/03/23 14:53 73/60 L 10/03/23 14:53 124 H 20 99 10/03/23 14:52 126 H 17 99 10/03/23 14:52 76/59 L 10/03/23 14:50 124 H 17 99 10/03/23 14:50 85/61 L 10/03/23 14:47 122 H 18 99 10/03/23 14:47 94/68 L 10/03/23 14:45 74 18 98 10/03/23 14:45 89/55 L 10/03/23 14:43 119 H 16 99 10/03/23 14:43 93/48 L 10/03/23 14:41 77 20 100 10/03/23 14:41 86/53 L 10/03/23 14:40 73 18 96 10/03/23 14:37 77 17 99 10/03/23 14:37 92/58 L 10/03/23 14:35 105 H 18 98 10/03/23 14:35 90/65 L 10/03/23 14:30 121 H 17 100 10/03/23 14:30 91/56 L 10/03/23 14:25 91/64 L 10/03/23 14:25 116 H 24 100 10/03/23 14:20 67 18 98 10/03/23 14:20 83/56 L 10/03/23 14:18 114 H 19 97 10/03/23 14:18 85/58 L 10/03/23 14:15 132 H 19 98 10/03/23 14:15 80/58 L 10/03/23 14:10 117 H 19 98 10/03/23 14:10 90/71 L 10/03/23 14:09 134 H 10/03/23 14:05 90/66 L 10/03/23 14:05 88 17 97 10/03/23 14:00 87 20 96 10/03/23 14:00 96/67 L 10/03/23 13:55 133 H 16 99 10/03/23 13:55 105/70 10/03/23 13:54 106/71 10/03/23 13:54 141 H 15 100 10/03/23 13:54 144 H 18 105/70 100 10/03/23 13:50 97/71 L 10/03/23 13:50 141 H 22 100 10/03/23 13:45 140 H 18 98 10/03/23 13:45 94/70 L 10/03/23 13:40 85 19 99 10/03/23 13:40 94/67 L 10/03/23 13:40 90 10/03/23 13:36 123 H 20 93 10/03/23 13:35 81 18 98 10/03/23 13:35 94/69 L 10/03/23 13:31 87 18 99 10/03/23 13:31 90/64 L 10/03/23 13:30 78 19 98 10/03/23 13:25 132 H 17 99 10/03/23 13:20 138 H 19 100 10/03/23 13:20 131 H 89/68 L 10/03/23 13:17 89/68 L 10/03/23 13:17 133 H 21 100 10/03/23 13:15 82 18 98 10/03/23 13:10 128 H 18 99 10/03/23 13:05 133 H 19 99 10/03/23 13:00 127 H 19 10/03/23 12:59 77/64 L 10/03/23 12:59 140 H 20 10/03/23 12:55 94 H 15 10/03/23 12:53 95 H 28 H 10/03/23 12:53 86/56 L 10/03/23 12:51 73/53 L 10/03/23 12:51 139 H 25 H 10/03/23 12:50 139 H 23 10/03/23 12:48 140 H 21 10/03/23 12:48 75/42 L 10/03/23 12:45 151 H 20 10/03/23 12:42 160 H 18 74/42 L 93 10/03/23 12:40 161 H 19 10/03/23 12:37 150 H 10/03/23 12:35 144 H 22 10/03/23 12:34 155 H O2 Del Method 10/03/23 15:42 10/03/23 15:40 10/03/23 15:40 Room Air 10/03/23 15:35 10/03/23 15:35 10/03/23 15:30 10/03/23 15:30 10/03/23 15:27 10/03/23 15:27 10/03/23 15:26 10/03/23 15:25 10/03/23 15:25 10/03/23 15:20 10/03/23 15:20 10/03/23 15:18 10/03/23 15:18 10/03/23 15:15 10/03/23 15:11 10/03/23 15:11 10/03/23 15:10 10/03/23 15:05 10/03/23 15:05 10/03/23 15:00 10/03/23 15:00 10/03/23 14:55 10/03/23 14:55 10/03/23 14:53 10/03/23 14:53 10/03/23 14:52 10/03/23 14:52 10/03/23 14:50 10/03/23 14:50 10/03/23 14:47 10/03/23 14:47 10/03/23 14:45 10/03/23 14:45 10/03/23 14:43 10/03/23 14:43 10/03/23 14:41 10/03/23 14:41 10/03/23 14:40 10/03/23 14:37 10/03/23 14:37 10/03/23 14:35 10/03/23 14:35 10/03/23 14:30 10/03/23 14:30 10/03/23 14:25 10/03/23 14:25 10/03/23 14:20 10/03/23 14:20 10/03/23 14:18 10/03/23 14:18 10/03/23 14:15 10/03/23 14:15 10/03/23 14:10 10/03/23 14:10 10/03/23 14:09 10/03/23 14:05 10/03/23 14:05 10/03/23 14:00 10/03/23 14:00 10/03/23 13:55 10/03/23 13:55 10/03/23 13:54 10/03/23 13:54 10/03/23 13:54 Room Air 10/03/23 13:50 10/03/23 13:50 10/03/23 13:45 10/03/23 13:45 10/03/23 13:40 10/03/23 13:40 10/03/23 13:40 10/03/23 13:36 Room Air 10/03/23 13:35 10/03/23 13:35 10/03/23 13:31 10/03/23 13:31 10/03/23 13:30 10/03/23 13:25 10/03/23 13:20 10/03/23 13:20 10/03/23 13:17 10/03/23 13:17 10/03/23 13:15 10/03/23 13:10 10/03/23 13:05 10/03/23 13:00 10/03/23 12:59 10/03/23 12:59 10/03/23 12:55 10/03/23 12:53 10/03/23 12:53 10/03/23 12:51 10/03/23 12:51 10/03/23 12:50 10/03/23 12:48 10/03/23 12:48 10/03/23 12:45 10/03/23 12:42 Room Air 10/03/23 12:40 10/03/23 12:37 10/03/23 12:35 10/03/23 12:34 Lab & Micro Results (Past 24 Hours) RBC 3.95 M/uL (4.70-6.10) L 10/03/23 WBC 9.68 K/ul (4.8-10.8) 10/03/23 Hgb 11.3 g/dl (14.0-18.0) L 10/03/23 Hct 35.4 % (42.0-52.0) L 10/03/23 MCV 89.6 fL (80.0-100.0) 10/03/23 MCH 28.6 pg (25.0-34.0) 10/03/23 MCHC 31.9 g/dL (32.0-36.0) L 10/03/23 RDW Standard Deviation 49.9 fL (36.4-46.3) H 10/03/23 RDW Coefficient of Variation 15.2 % (11.5-14.5) H 10/03/23 Plt Count 293 K/uL (130-400) 10/03/23 MPV 10.6 fL (9.4-12.4) 10/03/23 Neutrophils (%) (Auto) 92.9 % 10/03/23 Lymphocytes (%) (Auto) 1.2 % 10/03/23 Monocytes # (Auto) 0.50 K/uL (0.11-0.59) 10/03/23 Eosinophils # (Auto) 0.00 K/uL (0.00-0.50) 10/03/23 Immature Granulocyte % (Auto) 0.6 % 10/03/23 Neutrophils # (Auto) 8.99 K/uL (1.40-6.50) H 10/03/23 Lymphocytes # (Auto) 0.12 K/uL (1.20-3.40) L 10/03/23 Monocytes # (Auto) 0.50 K/uL (0.11-0.59) 10/03/23 Eosinophils # (Auto) 0.00 K/uL (0.00-0.50) 10/03/23 Basophils # (Auto) 0.01 K/uL (0.00-0.20) 10/03/23 Immature Granulocyte # (Auto) 0.06 K/uL (0.01-0.20) 4 Na 136 mmol/L (136-145) 10/03/23 K 4.5 mmol/L (3.5-5.1) 10/03/23 Cl 101 mmol/L (98-107) 10/03/23 CO2 9 mmol/L (21-32) L* 10/03/23 Anion Gap 26 (3-11) H 10/03/23 BUN 205 mg/dl (6-23) H 10/03/23 Creatinine 7.95 mg/dl (0.6-1.4) H* 10/03/23 Estimated GFR ( Amer) 6.6 ml/min 10/03/23 Estimated GFR (Non-Af Amer) 5.7 ml/min 10/03/23 BUN/Creatinine Ratio 25.8 (10-20) H 10/03/23 Glu 142 mg/dl (70-99(Fasting)) H 10/03/23 Ca 9.9 mg/dl (8.6-10.3) 10/03/23 Phosphorus Level 9.6 mg/dl (2.5-4.9) H 10/03/23 Total Bilirubin 0.4 mg/dl (0.2-1.0) 10/03/23 Direct Bilirubin 0.1 mg/dl (0-0.2) 10/03/23 AST 32 U/L (13-39) 10/03/23 ALT 44 U/L (7-52) 10/03/23 Alkaline Phosphatase 86 U/L (34-104) 10/03/23 TP 7.3 gm/dl (6.0-8.3) 10/03/23 Albumin 3.8 gm/dl (3.4-5.0) 10/03/23 Mg 1.9 mg/dl (1.7-2.4) 10/03/23 13:15 Calcium Level 9.9 mg/dl (8.6-10.3) 10/03/23 13:15 Prothromb Time International Ratio 1.1 (0.9-1.1) 10/03/23 13:1 5 Venous Blood pH 7.06 (7.36-7.41) L 10/03/23 13:27 Venous Blood Partial Pressure CO2 36 mmHg (38-50) L 10/03/23 13 :27 Venous Blood Partial Pressure O2 33 mmHg 10/03/23 13:27 Venous Blood HCO3 10 mmol/L 10/03/23 13:27 Venous Blood Base Excess -19.3 mEq/L 10/03/23 13:27 Venous Blood Oxygen Saturation < 60.0 % 10/03/23 13:27 Diagnostic Findings (Past 24 Hours) Chest X-Ray 10/03/23 12:44 SINGLE VIEW CHEST CLINICAL HISTORY: Sepsis. FINDINGS: 3 AP, portable, semierect chest radiographs are compared to study dated 09/22/2023. The examination is degraded by portable technique and patient rotation. The heart is enlarged. There is pulmonary vascular congestion. There is bibasilar airspace consolidation. Small pleural effusions are noted. No pneumothorax is seen. The skeletal structures are osteopenic. The bony thorax is grossly intact. Arthritic change is seen in the shoulders. IMPRESSION: 1. Cardiomegaly with pulmonary vascular congestion. 2. Small pleural effusions with bibasilar consolidation. Correlate clinically for evidence of pneumonia/aspiration pneumonitis. Radiographic follow-up to resolution is recommended. ACT 112: Negative or not required by law. Electronically signed by: Dez Munoz M.D. 10/03/2023 1:09 PM I & O Totals 24 Hours 10/02/23 10/03/23 10/04/23 06:59 06:59 06:59 Intake Total 1215.917 / 1215.917 Output Total 600 / 600 Balance 615.917 / 615.917 Cumulative 10/03/23 12:12 thru 10/03/23 15:54 Intake Total 1215.917 Output Total 600 Balance 615.917 RT Ventilator Mngmt (Last Documented) Ventilator Ordered Settings Respiratory Rate 15 10/03/23 15:40 Ventilator - PT Measurements Respiratory Rate 15 Coding Level of Care Code 83438 CRITICAL CARE EA ADD 30M Diagnoses Acute kidney injury superimposed on CKD N17.9; N18.9 Cardiomyopathy I42.9 Acute combined systolic and diastolic CHF, 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
[2023-10-03] MEDS ORDERED: bisacodyL 10 MG SUPP PR PRN (16:58)
--- NOTE | 2023-10-03 17:09 | XRay Report ---
XR chest 1V portable HISTORY: Central line placement COMPARISON: Chest 10/03/2023. FINDINGS: Interval placement of right jugular central venous catheter. The tip terminates at the [facility] hiocephalic/SVC junction. No pneumothorax. The heart remains enlarged. Cardiomegaly and pulmonary vas cular congestion persists. Small bilateral pleural effusions are again noted. Patchy bibasilar densit ies most pronounced on the right. This is also similar to the prior study. IMPRESSION: 1. A right jugular central venous catheter terminates at the brachiocephalic/SVC junction. No pneumot horax. 2. Bibasilar consolidation persists. This may represent a pneumonia. 3. Cardiomegaly and mild congestive change again noted. ACT 112: Negative or not required by law. Electronically signed by: Socrates Keith M.D. 10/03/2023 5:07 PM
--- NOTE | 2023-10-03 17:46 | Cardiology Consultation ---
Date of Consultation October 03, 2023 Assessment & Plan (1) Atrial fibrillation with rapid ventricular response: (2) CAD (coronary artery disease): (3) Elevated troponin: (4) Cardiomyopathy: (5) CKD (chronic kidney disease), stage V: Plan 83-year-old man with extensive coronary artery disease which is best medically managed. RCA has no occlusions and the other 2 vessels are occluded, which precludes percutaneous repair, they are collateralized and a portion of the apex is chronically infarcted, thereby offering minimal remaining viable myocardium distally which would not justify the risk of CABG. He has no chest pain and current troponin values are not suggestive of a new cardiac event. Continue medical management of his CAD by optimizing hemodynamics. Main cardiac issue currently is atrial fibrillation with rapid ventricular response. Given borderline hypotension, agree with IV amiodarone for both rate and rhythm control (he is alternating between brief episodes of sinus with PACs and longer episodes of atrial fibrillation currently). Although he is able to lie flat and chest x-ray does not show overt pulmonary edema, he does appear volume overloaded and is acidotic and will need to be dialyzed. Recent echo showed only mildly reduced LV systolic function, so no immediate role for inotropic support. Phenylephrine reasonable for pressure support to maintain adequate central perfusion, would titrate to avoid any hypertension /increased afterload. Agree with avoiding norepinephrine or similar agents at this time given proarrhythmic potential. Cardiology will continue to follow along while he is hospitalized, he sees Dr. Arrington routinely as an outpatient. History of Present Illness Reason for Consultation: CAD/A-fib with RVR Requesting Physician: Be Rosales MD Attending Physician: Be Rosales MD History of Present Illness 83-year-old man with multivessel CAD (poor revascularization options, medical management planned), mild ischemic cardiomyopathy (EF 40-45%), and end-stage renal disease with current uremia, who presented for placement of hemodialysis catheter earlier today and was found to have atrial fibrillation with rapid ventricular response and is therefore being admitted currently (10/03/2023). Patient appears chronically ill and had audible respiratory sounds, but he denies any chest pain or dyspnea. No subjective palpitations, presyncope, or syncope. Blood pressure has been low normal to mildly hypotensive after receiving IV metoprolol and diltiazem, therefore he was switched to intravenous amiodarone. Phenylephrine was initiated to maintain blood pressure. Metabolic parameters are consistent with a nongap acidosis and renal failure (BUN greater than 140, creatinine 7.95). Lactate 1.7. Troponins of 415 and 530 are significantly lower than during recent h ospitalization for NSTEMI (greater than 50,000). Normal sodium and potassium. Normal WBC. Hemoglobin 11.6. Normal platelet count. As noted, he denied any somatic complaints currently but he does appear ill. PMH: Cardiac catheterization 09/19/2023 showed: Left main 30% LAD 60% proximal/occluded after first diagonal. LCx 90% proximal, occluded after OM1. RCA ectatic vessel with collaterals feeding the left system. Allergies Allergy/AdvReac Type Severity Reaction Status Date / Time latex Allergy Mild SKIN Verified 10/03/23 14:52 IRRITATION Home Medications Medication Instructions Recorded Confirmed Type flash glucose scanning reader 07/19/20 10/03/23 History (FreeStyle [place] 14 Day [place]) flash glucose sensor (FreeStyle 07/19/20 10/03/23 History [place]itchie 14 Day Sensor kit) nystatin 100,000 unit/gram topical 1 applic topical BID PRN Itching 06/13/22 10/03/23 Rx cream #30 grams furosemide 40 mg tablet 40 mg PO QAM 11/29/22 10/03/23 History pantoprazole 40 mg tablet,delayed 40 mg PO QAM 11/29/22 10/03/23 History release insulin regular human 100 unit/mL See Rx Instructions subcut TIDM 12/04/22 10/03/23 Rx injection solution (Novolin R #40 mL Regular U-100 Insulin) metoprolol succinate 50 mg 75 mg (1.5 x 50 mg) PO HS #135 tabs 01/09/23 10/03/23 Rx tablet,extended release 24 hr insulin syringe,safetyneedle 0.3 #700 ea 01/15/23 10/03/23 Rx mL 31 gauge x 15/64" (BD SafetyGlide Insulin Syringe) clonidine HCl 0.1 mg tablet 0.1 mg PO HS #90 tabs 03/16/23 10/03/23 Rx ezetimibe 10 mg tablet (Zetia) 10 mg PO QPM 04/13/23 10/03/23 History insulin glargine 100 unit/mL (3 27 unit subcut QPM 04/13/23 10/03/23 History mL) subcutaneous pen (Basaglar KwikPen U-100 Insulin) levothyroxine 50 mcg tablet 50 mcg PO QAM 04/13/23 10/03/23 History (Synthroid) sildenafil 100 mg tablet (Viagra) 100 mg PO ONCE PRN sexual activity 04/13/23 10/03/23 History triamcinolone acetonide 0.1 % 1 applic topical BID PRN Itching 04/13/23 10/03/23 History topical cream (Triderm) pen needle, diabetic 31 gauge x #200 ea 04/27/23 10/03/23 Rx 3/16" (BD Ultra-Fine Mini Pen Needle) ferrous sulfate 140 mg (45 mg 45 mg PO BID 05/23/23 10/03/23 History iron) tablet,extended release tramadol 50 mg tablet 50 mg PO Q8H PRN pain #10 tabs 07/03/23 10/03/23 Rx fluticasone propionate 50 1 spray intranasal BID #3 BTLS 07/16/23 10/03/23 Rx mcg/actuation nasal spray,suspension (Flonase Allergy Relief) hepatitis B vaccine 20 mcg/0.5 0.5 ml IM Q30D 2 doses #2.5 mL 07/26/23 10/03/23 Rx mL-adjuvant CpG 1018 (PF) IM syringe (Heplisav-B (PF)) alprazolam 0.5 mg tablet 0.5 mg PO DAILY PRN anxiety #20 08/08/23 10/03/23 Rx tabs iron sucrose 200 mg iron/10 mL 200 mg (10 mL) IV DAILY 5 doses 08/29/23 10/03/23 Rx intravenous solution (Venofer) tramadol 50 mg tablet 50 mg PO BID PRN pain 30 days #60 09/04/23 10/03/23 Rx tabs finasteride 5 mg tablet (Proscar) 5 mg PO DAILY #90 tabs 09/06/23 10/03/23 Rx tamsulosin 0.4 mg capsule 0.8 mg (2 x 0.4 mg) PO DAILY #180 09/06/23 10/03/23 Rx caps darbepoetin jude in polysorbat 60 60 mcg subcut .COMPLEX #4 mL 09/12/23 10/03/23 Rx mcg/mL in polysorbate injection (Aranesp) hepatitis B vaccine 20 mcg/0.5 0.5 ml IM Q30D 2 doses #2.5 mL 09/12/23 10/03/23 Rx mL-adjuvant CpG 1018 (PF) IM syringe (Heplisav-B (PF)) aspirin 81 mg tablet,delayed 81 mg PO QAM #0 tabs 09/22/23 10/03/23 Rx release atorvastatin 40 mg tablet 80 mg (2 x 40 mg) PO QAM #0 tabs 09/22/23 10/03/23 Rx clopidogrel 75 mg tablet 75 mg PO QAM #0 tabs 09/22/23 10/03/23 Rx furosemide 40 mg tablet 40 mg PO BID17 #0 tabs 09/22/23 10/03/23 Rx metoprolol succinate 50 mg 100 mg (2 x 50 mg) PO QAM #0 tabs 09/22/23 10/03/23 Rx tablet,extended release 24 hr nitroglycerin 0.4 mg/hr 1 patch transdermal QAM #0 ea 09/22/23 10/03/23 Rx transdermal 24 hour patch (Nitro-Dur) Patient History Medical History Chronic kidney disease BPH (benign prostatic hyperplasia) Arteriovenous fistula Left AVF creation 11/2022- now has occlusion- reason for upcoming procedure History of kidney stones Glaucoma HX OF- S/P TREATMENT- NO CURRENT ISSUES 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 CORDOVA CKD V Controlled type 2 diabetes mellitus with kidney complication, with long-term current use of insulin Hgb A1C 09/2022 was 7.7 Coronary arteriosclerosis S/p angioplasty 1990 (no stent or hx of CABG) Cyst of kidney, acquired Dyslipidemia Hypertension FOLLOWED BY DR. ARRINGTON Hypothyroidism Obesity, Class II, BMI 35-39.9 Surgical History History of total right knee replacement H/O eye surgery RT/LEFT EYE FOR GLAUCOMA History of cataract surgery LEFT/RT History of total left knee replacement (TKR) X 2 History of lithotripsy a couple times History of tonsillectomy History of angioplasty at the age of 51 History of surgery scrotal hernia repair History of exploratory laparotomy History of umbilical hernia repair History of colonoscopy History of ear surgery Tympanic membrane repair--per pt a couple times Family History Father Cancer of kidney Hypertension Cardiac disorder Family/Other Cancer of kidney Bone cancer Mother Bone cancer Cardiac disorder Hypertension Other No family history of adverse response to anesthesia No family history of bleeding disorder Social History Smoking Status: Former smoker Tobacco Type: Cigarettes Second Hand Exposure: No; Do You Dip or Chew Tobacco: No; Hx Alcohol Use: No Hx Substance Use: No Preferred Language: Senegalese Communication Ability: Effective Visual Impairment: Limited Hearing Ability: Normal Apartment Leasing Consultant Required: No Beliefs That Will Affect Care: None marital status: / Current Living Situation: Alone current occupational status: employed 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 Afebrile to mildly hypothermic. Borderline hypotensive (100/71 mmHg). Mildly tachycardic (100-120 bpm currently) Skin: no ecchymoses or generalized lesions. HEENT: unremarkable. Neck: JVP elevated (but he is lying fairly flat), no carotid bruits. Lungs: diffuse rhonchi and occasional wheezing, no obvious accessory muscle use. Cardiac: Irregular/tachycardic rhythm, heart sounds difficult to auscultate due to masking by breath sounds. Abdomen: benign. Extremities: 1+ pretibial edema with stasis changes, capillary refill intact (2 seconds), limbs warm. Neurologic: Answers simple questions appropriately, grossly nonfocal. Results & Data Laboratory Results labs as noted in HPI. Diagnostic Findings Initial ECG today appeared to be sinus rhythm with frequent PACs, rate 99 bpm, interventricular conduction delay with possible age-indeterminate anteroseptal infarct. A second ECG showed atrial fibrillation with rapid ventricular sponsor 146 bpm, interventricular conduction delay, age-indeterminate anteroseptal infarct. A 3rd ECG showed atrial fibrillation with ventricular rate of 95 bpm, interventricular conduction delay, age-indeterminate anteroseptal infarct. None of the ECGs showed major ST deviation. Chest x-ray with increased interstitial markings but no overt pulmonary edema. No significant effusions. Echo August 2023 showed EF of 40 to 45% with anterolateral and apical akinesis. Mild AI/MR/mild to moderate MS with severe pulmonary hypertension. PG Care Time/CCT Total # of Minutes Spent Total Time Spent with Patient: Total time spent is greater than 50% in coordination of care (as documented) at patient's floor/unit and/or counseling patient: Coding Level of Care Code 59629 INT INP/OBS CARE 3/75MIN Diagnoses Atrial fibrillation with rapid ventricular response I48.91 CAD (coronary artery disease) I25.10 Elevated troponin R79.89 Cardiomyopathy I42.9 CKD (chronic kidney disease), stage V N18.5
[2023-10-03] MEDS: PHENYLEPHRINE/NSS 25 MG/250 ML BAG IV SCH (18:07)
[2023-10-03 18:30] LABS: BUN Creatinine Ratio 26.8 (10-20); Calcium 7.2 mg/dl (8.6-10.3); Creatinine Clr Calc Pharmacy 10.2 ml/min; Est GFR (Non-African American) 7.7 ml/min; Potassium 3.5 mmol/L (3.5-5.1)
[2023-10-03] MEDS ORDERED: CARBOHYDRATES FOR HYPOGLYCEMIA PO PRN (18:43)
[2023-10-03] MEDS ORDERED: GLUCOSE 10 TAB/TUBE PO PRN (18:43)
[2023-10-03] MEDS ORDERED: GLUCOSE 40% GEL 15 GM TUBE PO PRN (18:43)
[2023-10-03] MEDS ORDERED: DEXTROSE 50% 50 ML SYRINGE IV PRN (18:43)
[2023-10-03] MEDS ORDERED: GLUCAGON FOR INJ 1 MG VIAL SQ PRN (18:43)
[2023-10-03] MEDS ORDERED: PHARMACY GLYCEMIC MGMT CONSULT PRN ×2 (18:43)
[2023-10-03] MEDS ORDERED: ICU Protocol for HYPERglycemia SCH ×2 (18:43→21:00)
[2023-10-03] MEDS ORDERED: dexAMETHasone 6 MG in SYRINGE 0 ML IV SCH ×2 (19:00→20:00)
[2023-10-03] MEDS: INSULIN ASPART PER UNIT CHARGE SC SCH ×2 (20:23→21:10)
[2023-10-03] MEDS ORDERED: METOPROLOL SUCC 25MG EXT REL TAB PO SCH (21:00)
[2023-10-03] MEDS ORDERED: LANTUS PER UNIT CHARGE SC ONE (21:00)
[2023-10-03] MEDS: dexAMETHasone 6 MG in SYRINGE 0 ML IV SCH (21:30)
[2023-10-03] MEDS: AMIODARONE / D5W 360 MG/200 ML BAG IV SCH (21:31)
[2023-10-03] MEDS: FLUTICASONE PROPIONATE NA SPR 16 GM BTL NAE SCH (21:32)
[2023-10-03] MEDS ORDERED: DEXAMETHASONE SOD INJ 4 MG/ML VIAL IV SCH (22:00)
[2023-10-03] MEDS: SENNA 8.6 MG TAB PO SCH (22:02)
[2023-10-03] MEDS: DOCUSATE SODIUM 100 MG CAP PO SCH (22:02)
[2023-10-04] MEDS: PHENYLEPHRINE/NSS 25 MG/250 ML BAG IV SCH ×3 (03:34→20:59)
[2023-10-04 05:06] LABS: Hemoglobin 9.7 g/dl (14.0-18.0); Mean Corpuscular Hemoglobin 28.4 pg (25.0-34.0); Mean Corpuscular Hgb Conc 32.3 g/dL (32.0-36.0); Mean Platelet Volume 10.2 fL (9.4-12.4); Platelet Count 273 K/uL (130-400); RDW Coefficient of Variation 15.4 % (11.5-14.5); RDW Standard Deviation 49.6 fL (36.4-46.3); Red Blood Count 3.41 M/uL (4.70-6.10); White Blood Count 6.19 K/ul (4.8-10.8)
[2023-10-04 05:18] LABS: Magnesium 1.8 mg/dl (1.7-2.4); Phosphorus 7.1 mg/dl (2.5-4.9)
[2023-10-04 05:34] LABS: Basophils # (auto) 0.01 K/uL (0.00-0.20); Basophils % (auto) 0.2 %; Immature Granulocytes # (auto) 0.02 K/uL (0.01-0.20); Immature Granulocytes % (auto) 0.3 %; Lymphocytes # (auto) 0.18 K/uL (1.20-3.40); Lymphocytes % (auto) 2.9 %; Monocytes # (auto) 0.23 K/uL (0.11-0.59); Monocytes % (auto) 3.7 %; Neutrophils # (auto) 5.75 K/uL (1.40-6.50); Neutrophils % (auto) 92.9 %
[2023-10-04] MEDS: LEVOTHYROXINE SODIUM 50 MCG TABLET PO SCH (06:12)
[2023-10-04 06:53] LABS: Calcium 9.7 mg/dl (8.6-10.3); Creatinine Clr Calc Pharmacy 10.5 ml/min; Est GFR (African American) 9.7 ml/min; Est GFR (Non-African American) 8.4 ml/min
--- NOTE | 2023-10-04 07:08 | Critical Care Progress Note ---
Date of Service October 04, 2023 Assessment & Plan (1) High blood urea nitrogen (BUN): (2) COVID-19: (3) Atrial fibrillation with rapid ventricular response: (4) End stage renal disease: (5) High anion gap metabolic acidosis: (6) Acute kidney injury superimposed on CKD: (7) CKD (chronic kidney disease), stage V: (8) Acute combined systolic and diastolic CHF, NYHA class 3: Plan Impression: 83-year-old male with multiple medical problems delineated on admission H&P. His biggest critical care issues are atrial fibrillation with rapid ventricular response, hypotension, severe acidosis, end-stage renal disease with severe uremia needing urgent dialysis. Temporary HD catheter was placed in the emergency room under ultrasound guidance. Please refer to separate dialysis catheter placement note. Neurologic - Patient may have some underlying encephalopathy related to significant uremia and acid-base disturbances. - BUN, Cr, HCO3 levels all improving; re-evaluate if improved levels don't correlate w/ clinical improvement - Will continue to follow, trend CMP/BMP Cardiovascular - Atrial fibrillation with rapid ventricular response, Amiodarone per cardiology. Defer anticoagulation for now, HAS BLED, +4, at least - Hx of severe three-vessel coronary disease which is being managed medically. - Defer to cardiology for use of inotropic agents (dobutamine or milrinone), these may aggravate his atrial arrhythmia. - Patient may require pressor support during dialysis. Would be reluctant to use other sympathomimetics which may potentially aggravate his atrial arrhythmia. - Neosynephrine stopped for now; midodrine ordered as pressor to be used during dialysis Pulmonary - Hypoxemic respiratory failure. Secondary to volume overload, COVID, and basilar atelectasis. - Continue oxygen as needed. Will see how he responds to volume removal with dialysis. Incentive spirometry. See comments regarding COVID below. - Patient does state that he does not want to pursue intubation mechanical ventilation in the event of respiratory deterioration or arrest. Unclear if CPR or cardioversion is wanted; will need to address if and when patient is deemed to have capacity - VBG: pH, 7.06; pCO2, 36; pO2, 33 Renal - End-stage renal disease now requiring dialysis. Significantly uremic. - Cr, 5.8 <-- 8.0 ; BUN, 137 <-- 205 (baseline Cr ~ 5-6) - HCO3, 13, he has refractory acidosis, currently on HCO3 infusion; AG, 23 - Will defer bicarb to nephrology. bicarb stopped. Hopefully with dialysis we should be able to correct his acidosis as well as his significant uremia. - hyperphosphatemia, P, 7.1 <-- 9.6, Phosphate also elevated. Defer to nephr ology whether to use phosphate binders. - Danielson catheter has been placed. The patient has a history of BPH. ID - COVID-positive. Patient afebrile currently with a normal WBC count; WBC, 6.2 - Procalcitonin, 1.73, mildly elevated, significance with end-stage renal disease requiring dialysis is somewhat unclear. - CRP, 0.76, inflammatory marker level in context of patient's current medical condition likely unreliable - Given CXR abnormalities, seems prudent to initiate dexamethasone 6 mg daily. Received dose of cefepime in ED. - Chest x-ray does not appear significantly different than when he was discharged from the hospital 09/22/2023 so I think underlying bacterial pneumonia is probably less likely and antibiotics will be held for now. - If he coughs up phlegm, sputum culture should be obtained. Will check follow- up chest x-ray in a.m. - blood CX, urine Cx pending - MRSA (nares), neg GI - No current issues - heart health diet, volume-restricted to 1500 mL Heme-onc - Mild anemia likely secondary to CKD. No evidence of acute blood loss, no indication for transfusion currently. - Hgb, 9.7 <-- 11.3, ~ 1.5 of net fluid, so likely hemodilution Endocrine - Glycemic control per protocol. Admission and Anticipated Discharge Date Admission Date: October 03, 2023 Supervising Physician Co-Signing Physician Notes Patient seen and examined. EMR reviewed. Images were independently reviewed and discussed with consultants as well as family practice resident, bedside critical care nurse, and on multidisciplinary rounds. The patient has converted out of atrial fibrillation. His blood pressure is improving. Midodrine has been started. Holding his antihypertensives. He tolerated dialysis yesterday and underwent a repeat dialysis session today. His cough is much better. He does not feel short of breath. He did not remove fluid with him yesterday but did remove fluid from them today. This point in time would recommend continuing dexamethasone at 6 mg daily until the patient is at or below his baseline oxygen requirement. Would continue midodrine for now. Holding metoprolol. This can be restarted once the patient's blood pressure tolerates. Midodrine may be adjusted as well. IV amiodarone per cardiology. Will keep the patient in the intensive care unit until he is able to be weaned off of vasoactive medications. Subjective Davin Gaviria is 83 yo M w/ PMHx of CKD, hypertension, hyperlipidemia, iron deficiency anemia, hypothyroidism, BPH, recent admission to [facility] for acute hypoxic respiratory failure secondary to acute IN (NSTEMI, Sep 182022) with new ischemic cardiomyopathy with EF of 45% who presented to ED referred from preop for permacath placement for new onset A-fib with RVR and hypotension in addition to testing positive for COVID-19 (BP 80/60s with heart rate in the 160s). Reported 2 weeks of cough. No fever or chills. Increased shortness of breath since discharge. Sodium bicarb 50 meq IV for metabolic acidosis was recommended to stabilize prior to dialysis and amiodarone IV drip instead of diltiazem given he does much better in NSR and BP improves; recent NSTEMI with borderline EF and already converting in and out of AFib. Patient pleasant, cooperative this morning for me but w/ inappropriate mental status, agreeable to everything, seems to deny any clinical symptoms whatsoever. AAO x1 (not to time or place). When observed coughing, patient did eventually endorse cough and chest congestion. Initially denied calf tenderness while grimacing with calf squeeze/palpation; when pointed out, patient then endorsed calf pain Review of Systems Constitutional: no fever, no chills, no body aches and no weakness Respiratory: + cough and + chest congestion; no dyspn ea Cardiovascular: no chest pain and no palpitations Gastrointestinal: no abdominal pain, no nausea, no vomiting and no diarrhea/loose stools Genitourinary: no dysuria or no urinary frequency Neurologic: no tingling and no numbness Physical Exam Constitutional: WD/WN, vitals as above ENMT: Ears: no external ear abnormality and able to visualize TM Nose: no turbinate abnormality and no nasal discharge Respiratory: + cough and able to speak in complete se ntences; no respiratory distress Cardiovascular: Rate/Rhythm: regular rate; + abnormal rhythm Extremities: normal capillary refill and + calf tenderness (pronounced l. calf tenderness, mild r. calf tenderness); no pedal edema Gastrointestinal (Abdomen): normal bowel sounds, soft, nontender, no hepatosplenomegaly Neurologic: PERRL, EOMI, accommodation nl, no face palsy, no dysarthria CN's II-XI intact bilaterally Psychiatric: Orientation: alert, oriented to person and cooperative; + not oriented to place and + not oriented to time Results & Data Results & Data Vital Signs (Past 12 Hours) Vital Signs Temp Pulse Pulse Resp BP BP Pulse Ox 10/04/23 06:00 99 H 23 87 L 10/04/23 06:00 36.9 C 115/60 10/04/23 05:30 100 H 21 90 10/04/23 05:30 119/61 10/04/23 05:00 96/48 L 10/04/23 05:00 98 H 20 88 L 10/04/23 04:31 94/56 L 10/04/23 04:31 96 H 19 92 10/04/23 04:30 93 H 16 86 L 10/04/23 04:00 36.9 C 94/49 L 10/04/23 04:00 95 H 19 93 10/04/23 03:30 36.9 C 93/39 L 10/04/23 03:30 93 H 16 91 10/04/23 03:00 103/48 L 10/04/23 03:00 91 H 20 92 10/04/23 02:30 111/40 L 10/04/23 02:30 88 16 92 10/04/23 02:00 95 H 17 89 L 10/04/23 01:30 93 H 19 91 10/04/23 01:30 115/60 10/04/23 01:17 10/04/23 01:00 100/53 L 10/04/23 01:00 91 H 19 100/53 L 91 10/04/23 00:30 108/59 L 10/04/23 00:30 91 H 19 93 10/04/23 00:00 83 19 94 10/04/23 00:00 106/55 L 10/03/23 23:30 107/52 L 10/03/23 23:30 84 16 92 10/03/23 23:08 81 10/03/23 23:00 93/46 L 10/03/23 23:00 83 18 93 10/03/23 22:30 83 17 89/50 L 93 10/03/23 22:00 90 18 112/50 L 94 10/03/23 22:00 10/03/23 21:30 86 19 120/66 94 10/03/23 21:18 36.7 C 85 115/59 L 10/03/23 21:00 83 109/56 L 10/03/23 20:30 85 105/59 L 10/03/23 20:00 10/03/23 20:00 132 H 97/62 L 10/03/23 19:30 122 H 106/80 10/03/23 19:15 114 H 90/61 L 10/03/23 19:10 36.7 C 119 H Pulse Ox O2 Del Method O2 Del Method O2 Flow Rate O2 Flow Rate FiO2 10/04/23 06:00 10/04/23 06:00 10/04/23 05:30 10/04/23 05:30 10/04/23 05:00 10/04/23 05:00 10/04/23 04:31 10/04/23 04:31 10/04/23 04:30 10/04/23 04:00 10/04/23 04:00 10/04/23 03:30 10/04/23 03:30 10/04/23 03:00 10/04/23 03:00 10/04/23 02:30 10/04/23 02:30 10/04/23 02:00 Nasal Cannula 4 10/04/23 01:30 10/04/23 01:30 10/04/23 01:17 Nasal Cannula 2 10/04/23 01:00 10/04/23 01:00 10/04/23 00:30 10/04/23 00:30 10/04/23 00:00 10/04/23 00:00 10/03/23 23:30 10/03/23 23:30 10/03/23 23:08 10/03/23 23:00 10/03/23 23:00 10/03/23 22:30 Nasal Cannula 2 28 10/03/23 22:00 Nasal Cannula 2 10/03/23 22:00 Nasal Cannula 2 10/03/23 21:30 Nasal Cannula 2 10/03/23 21:18 10/03/23 21:00 10/03/23 20:30 10/03/23 20:00 96 Nasal Cannula 2 10/03/23 20:00 10/03/23 19:30 10/03/23 19:15 10/03/23 19:10 Critical Care Results & Data Vital Signs (Past 12 Hours) Vital Signs Temp Pulse Pulse Resp BP Pulse Ox O2 Del Method 10/04/23 12:00 91 H 101/62 10/04/23 11:30 95 H 95/52 L 10/04/23 11:00 95 H 116/65 10/04/23 10:45 95 H 10/04/23 10:30 96 H 118/66 10/04/23 10:00 96 H 27 H 124/73 89 L 10/04/23 10:00 36.9 C 97 H 10/04/23 09:30 95 H 18 116/65 91 10/04/23 09:00 92 H 19 116/61 91 10/04/23 08:00 93 H 22 117/63 90 10/04/23 07:50 Nasal Cannula 10/04/23 07:00 96 H 20 113/58 L 91 10/04/23 06:00 99 H 23 87 L 10/04/23 06:00 36.9 C 115/60 10/04/23 05:30 100 H 21 90 10/04/23 05:30 119/61 10/04/23 05:00 96/48 L 10/04/23 05:00 98 H 20 88 L 10/04/23 04:31 94/56 L 10/04/23 04:31 96 H 19 92 10/04/23 04:30 93 H 16 86 L 10/04/23 04:00 36.9 C 94/49 L 10/04/23 04:00 95 H 19 93 10/04/23 03:30 36.9 C 93/39 L 10/04/23 03:30 93 H 16 91 10/04/23 03:00 103/48 L 10/04/23 03:00 91 H 20 92 10/04/23 02:30 111/40 L 10/04/23 02:30 88 16 92 10/04/23 02:00 95 H 17 89 L Nasal Cannula O2 Flow Rate 10/04/23 12:00 10/04/23 11:30 10/04/23 11:00 10/04/23 10:45 10/04/23 10:30 10/04/23 10:00 10/04/23 10:00 10/04/23 09:30 10/04/23 09:00 10/04/23 08:00 10/04/23 07:50 4 10/04/23 07:00 10/04/23 06:00 10/04/23 06:00 10/04/23 05:30 10/04/23 05:30 10/04/23 05:00 10/04/23 05:00 10/04/23 04:31 10/04/23 04:31 10/04/23 04:30 10/04/23 04:00 10/04/23 04:00 10/04/23 03:30 10/04/23 03:30 10/04/23 03:00 10/04/23 03:00 10/04/23 02:30 10/04/23 02:30 10/04/23 02:00 4 Lab & Micro Results (Past 24 Hours) RBC 3.41 M/uL (4.70-6.10) L 10/04/23 WBC 6.19 K/ul (4.8-10.8) 10/04/23 Hgb 9.7 g/dl (14.0-18.0) L 10/04/23 Hct 30.0 % (42.0-52.0) L 10/04/23 MCV 88.0 fL (80.0-100.0) 10/04/23 MCH 28.4 pg (25.0-34.0) 10/04/23 MCHC 32.3 g/dL (32.0-36.0) 10/04/23 RDW Standard Deviation 49.6 fL (36.4-46.3) H 10/04/23 RDW Coefficient of Variation 15.4 % (11.5-14.5) H 10/04/23 Plt Count 273 K/uL (130-400) 10/04/23 MPV 10.2 fL (9.4-12.4) 10/04/23 Neutrophils (%) (Auto) 92.9 % 10/04/23 Lymphocytes (%) (Auto) 2.9 % 10/04/23 Monocytes # (Auto) 0.23 K/uL (0.11-0.59) 10/04/23 Eosinophils # (Auto) 0.00 K/uL (0.00-0.50) 10/04/23 Immature Granulocyte % (Auto) 0.3 % 10/04/23 Neutrophils # (Auto) 5.75 K/uL (1.40-6.50) 10/04/23 Lymphocytes # (Auto) 0.18 K/uL (1.20-3.40) L 10/04/23 Monocytes # (Auto) 0.23 K/uL (0.11-0.59) 10/04/23 Eosinophils # (Auto) 0.00 K/uL (0.00-0.50) 10/04/23 Basophils # (Auto) 0.01 K/uL (0.00-0.20) 10/04/23 Immature Granulocyte # (Auto) 0.02 K/uL (0.01-0.20) 4 Na 138 mmol/L (136-145) 10/04/23 K 4.0 mmol/L (3.5-5.1) 10/04/23 Cl 102 mmol/L (98-107) 10/04/23 CO2 13 mmol/L (21-32) L 10/04/23 Anion Gap 23 (3-11) H 10/04/23 BUN 137 mg/dl (6-23) H 10/04/23 Creatinine 5.78 mg/dl (0.6-1.4) H* 10/04/23 Estimated GFR ( Amer) 9.7 ml/min 10/04/23 Estimated GFR (Non-Af Amer) 8.4 ml/min 10/04/23 BUN/Creatinine Ratio 23.7 (10-20) H 10/04/23 Glu 152 mg/dl (70-99(Fasting)) H 10/04/23 Ca 9.7 mg/dl (8.6-10.3) 10/04/23 Phosphorus Level 7.1 mg/dl (2.5-4.9) H 10/04/23 Mg 1.8 mg/dl (1.7-2.4) 10/04/23 04:15 Calcium Level 9.7 mg/dl (8.6-10.3) 10/04/23 04:15 Microbiology 10/03/23 13:51 Urine Culture - Preliminary Urine,Clean Catch No growth - Less than 1,000 colonies/mL, Final report to follow. Diagnostic Findings (Past 24 Hours) Chest X-Ray 10/03/23 16:36 XR chest 1V portable HISTORY: Central line placement COMPARISON: Chest 10/03/2023. FINDINGS: Interval placement of right jugular central venous catheter. The tip terminates at the brachiocephalic/SVC junction. No pneumothorax. The heart remains enlarged. Cardiomegaly and pulmonary vascular congestion persists. Small bilateral pleural effusions are again noted. Patchy bibasilar densities most pronounced on the right. This is also similar to the prior study. IMPRESSION: 1. A right jugular central venous catheter terminates at the brachiocephalic/SVC junction. No pneumothorax. 2. Bibasilar consolidation persists. This may represent a pneumonia. 3. Cardiomegaly and mild congestive change again noted. ACT 112: Negative or not required by law. Electronically signed by: Socrates Keith M.D. 10/03/2023 5:07 PM I & O Totals 24 Hours 10/03/23 10/04/23 10/05/23 06:59 06:59 06:59 Intake Total 2936.672 / 2936.672 186.483 / 186.483 Output Total 1750 / 1750 250 / 250 Balance 1186.672 / 1186.672 -63.517 / -63.517 Cumulative 10/03/23 12:12 thru 10/04/23 12:22 Intake Total 3123.155 Output Total 1999 Balance 1123.155 RT Ventilator Mngmt (Last Documented) Ventilator Ordered Settings Respiratory Rate 27 10/04/23 10:00 Fraction of Inspired Oxygen 28 10/03/23 22:30 Ventilator - PT Measurements Respiratory Rate 27
[2023-10-04 07:13] LABS: BUN Creatinine Ratio 23.7 (10-20)
[2023-10-04] MEDS: INSULIN ASPART PER UNIT CHARGE SC SCH ×4 (08:33→21:26)
[2023-10-04] MEDS: dexAMETHasone 6 MG in SYRINGE 0 ML IV SCH (08:34)
[2023-10-04] MEDS: CLOPIDOGREL BISULFATE 75 MG TAB PO SCH (08:34)
[2023-10-04] MEDS: ASPIRIN 81 MG ECTAB PO SCH (08:34)
[2023-10-04] MEDS: DOCUSATE SODIUM 100 MG CAP PO SCH ×2 (08:34→21:23)
[2023-10-04] MEDS: ATORVASTATIN 40 MG TAB PO SCH (08:35)
[2023-10-04] MEDS: FLUTICASONE PROPIONATE NA SPR 16 GM BTL NAE SCH ×2 (08:35→21:24)
[2023-10-04] MEDS: AMIODARONE / D5W 360 MG/200 ML BAG IV SCH ×2 (08:41→21:23)
[2023-10-04] MEDS ORDERED: SODIUM CHLORIDE 0.9% 1,000 ML IV PRN (08:42)
[2023-10-04] MEDS ORDERED: HEPARIN SOD (PORCINE) 1000 UNIT/ML IV ONE (08:42)
[2023-10-04] MEDS ORDERED: EPOETIN ALFA 10,000 UNITS/ML VIAL IV ONE (08:42)
--- NOTE | 2023-10-04 08:48 | Nephrology Progress Note ---
Date of Service October 04, 2023 Assessment & Plan (1) End stage renal disease: Plan: * 1st HD 10/03/23 via temporary IJ catheter * Remains azotemic w/ metabolic acidosis. Will schedule 2nd HD for today. Plan 3 hours w/ 1.5 L UF. Orders have been placed in EMR and HD RN notified * Monitor PRP (2) Hypotension: Plan: * Phenylephrine being weaned by critical care. Midodrine has been started * Blood and urine cultures - pending (3) High anion gap metabolic acidosis: Plan: * IV NaHCO3 gtt stopped. Serum bicarbonate correcting w/ HD (4) COVID-19: Plan: * On IV Dexamethasone (5) Atrial fibrillation with rapid ventricular response: Plan: * On Amiodarone gtt as per Cardiology Admission and Anticipated Discharge Date Admission Date: October 03, 2023 Subjective Mr. Gaviria was evaluated in the ICU this morning. He was dialyzed last evening via temporary IJ HD catheter for 2 hours with no UF. There were no complications. He is currently undergoing echocardiogram. POC discussed w/ ICU team. Midodrine has been started and IV phenylephrine is being weaned to off Review of Systems Constitutional: no fever Eyes: no problem reported Ear, Nose, Mouth, Throat: no problem reported Respiratory: no cough and no dyspnea Cardiovascular: + palpitations Gastrointestinal: no abdominal pain, no nausea, no vomiting and no diarrhea/loose stools Physical Exam Constitutional: + ill appearing Eyes: PERRL, conjunctivae normal, anicteric sclerae ENMT: external ear and nose normal, oropharynx normal Neck: trachea midline, no thyromegaly Respiratory: normal respiratory effort, lungs clear to auscultation Cardiovascular: Rate/Rhythm: + irregularly irregular Extremities: no edema Gastrointestinal (Abdomen): normal bowel sounds, soft, nontender, no hepatosplenomegaly Results & Data Vital Signs (Past 12 Hours) Vital Signs Temp Pulse Pulse Resp BP BP Pulse Ox 10/04/23 07:50 10/04/23 06:00 99 H 23 87 L 10/04/23 06:00 36.9 C 115/60 10/04/23 05:30 100 H 21 90 10/04/23 05:30 119/61 10/04/23 05:00 96/48 L 10/04/23 05:00 98 H 20 88 L 10/04/23 04:31 94/56 L 10/04/23 04:31 96 H 19 92 10/04/23 04:30 93 H 16 86 L 10/04/23 04:00 36.9 C 94/49 L 10/04/23 04:00 95 H 19 93 10/04/23 03:30 36.9 C 93/39 L 10/04/23 03:30 93 H 16 91 10/04/23 03:00 103/48 L 10/04/23 03:00 91 H 20 92 10/04/23 02:30 111/40 L 10/04/23 02:30 88 16 92 10/04/23 02:00 95 H 17 89 L 10/04/23 01:30 93 H 19 91 10/04/23 01:30 115/60 10/04/23 01:17 10/04/23 01:00 100/53 L 10/04/23 01:00 91 H 19 100/53 L 91 10/04/23 00:30 108/59 L 10/04/23 00:30 91 H 19 93 10/04/23 00:00 83 19 94 10/04/23 00:00 106/55 L 10/03/23 23:30 107/52 L 10/03/23 23:30 84 16 92 10/03/23 23:08 81 10/03/23 23:00 93/46 L 10/03/23 23:00 83 18 93 10/03/23 22:30 83 17 89/50 L 93 10/03/23 22:00 90 18 112/50 L 94 10/03/23 22:00 10/03/23 21:30 86 19 120/66 94 10/03/23 21:18 36.7 C 85 115/59 L 10/03/23 21:00 83 109/56 L O2 Del Method O2 Flow Rate FiO2 10/04/23 07:50 Nasal Cannula 4 10/04/23 06:00 10/04/23 06:00 10/04/23 05:30 10/04/23 05:30 10/04/23 05:00 10/04/23 05:00 10/04/23 04:31 10/04/23 04:31 10/04/23 04:30 10/04/23 04:00 10/04/23 04:00 10/04/23 03:30 10/04/23 03:30 10/04/23 03:00 10/04/23 03:00 10/04/23 02:30 10/04/23 02:30 10/04/23 02:00 Nasal Cannula 4 10/04/23 01:30 10/04/23 01:30 10/04/23 01:17 Nasal Cannula 2 10/04/23 01:00 10/04/23 01:00 10/04/23 00:30 10/04/23 00:30 10/04/23 00:00 10/04/23 00:00 10/03/23 23:30 10/03/23 23:30 10/03/23 23:08 10/03/23 23:00 10/03/23 23:00 10/03/23 22:30 Nasal Cannula 2 28 10/03/23 22:00 Nasal Cannula 2 10/03/23 22:00 Nasal Cannula 2 10/03/23 21:30 Nasal Cannula 2 10/03/23 21:18 10/03/23 21:00 Laboratory Results Laboratory Results - last 24 hr 10/03/23 10/03/23 10/03/23 13:15 13:24 13:27 WBC 9.68 RBC 3.95 L Hgb 11.3 L POC Hgb 11.6 L Hct 35.4 L POC Hct 34 L MCV 89.6 MCH 28.6 MCHC 31.9 L RDW Std Deviation 49.9 H RDW Coeff of Aysha 15.2 H Plt Count 293 MPV 10.6 Immature Gran % (Auto) 0.6 Neut % (Auto) 92.9 Lymph % (Auto) 1.2 [place] % (Auto) 5.2 Eos % (Auto) 0.0 Baso % (Auto) 0.1 Neut # (Auto) 8.99 H Lymph # (Auto) 0.12 L [place] # (Auto) 0.50 Eos # (Auto) 0.00 Baso # (Auto) 0.01 Immature Gran # (Auto) 0.06 PT 11.9 INR 1.1 VBG pH 7.06 L VBG pCO2 36 L VBG pO2 33 VBG HCO3 10 VBG O2 Saturation < 60.0 VBG Base Excess -19.3 POC Sodium 135 Sodium 136 POC Potassium 4.5 Potassium 4.5 POC Chloride 106 Chloride 101 Carbon Dioxide 9 L* POC Total CO2 11 L Anion Gap 26 H POC Anion Gap 24.0 POC BUN > 140 H* BUN 205 H Creatinine 7.95 H* POC Creatinine 9.5 H* Est Cr Clr Drug Dosing 7.9 Est GFR ( Amer) 6.6 Est GFR (Non-Af Amer) 5.7 BUN/Creatinine Ratio 25.8 H Glucose 142 H POC Glucose POC Glucose (other) 143 H Lactate Calcium 9.9 POC Ioniz Calcium Ivelisse 1.26 Phosphorus 9.6 H Magnesium 1.9 Total Bilirubin 0.4 Direct Bilirubin 0.1 AST 32 ALT 44 Alkaline Phosphatase 86 Troponin I High Sens 415.1 H* Total Protein 7.3 Albumin 3.8 Procalcitonin 1.73 H Urine Color Urine Appearance Urine pH Ur Specific [place] Urine Protein Urine Glucose (UA) Urine Ketones Urine Blood Urine Nitrite Urine Bilirubin Urine Urobilinogen Ur Leukocyte Esterase Urine WBC (Auto) Urine RBC (Auto) U Hyaline Cast (Auto) U Epithel Cells (Auto) Urine Bacteria (Auto) Urine Yeast Nasal Screen MRSA (PCR) Hep Bs Antigen Hep Bs Ag Confirmation Hep Bs Antibody, Quant 10/03/23 10/03/23 10/03/23 13:30 13:51 15:17 WBC RBC Hgb POC Hgb Hct POC Hct MCV MCH MCHC RDW Std Deviation RDW Coeff of Aysha Plt Count MPV Immature Gran % (Auto) Neut % (Auto) Lymph % (Auto) [place] % (Auto) Eos % (Auto) Baso % (Auto) Neut # (Auto) Lymph # (Auto) [place] # (Auto) Eos # (Auto) Baso # (Auto) Immature Gran # (Auto) PT INR VBG pH VBG pCO2 VBG pO2 VBG HCO3 VBG O2 Saturation VBG Base Excess POC Sodium Sodium POC Potassium Potassium POC Chloride Chloride Carbon Dioxide POC Total CO2 Anion Gap POC Anion Gap POC BUN BUN Creatinine POC Creatinine Est Cr Clr Drug Dosing Est GFR ( Amer) Est GFR (Non-Af Amer) BUN/Creatinine Ratio Glucose POC Glucose POC Glucose (other) Lactate 1.7 Calcium POC Ioniz Calcium Ivelisse Phosphorus Magnesium Total Bilirubin Direct Bilirubin AST ALT Alkaline Phosphatase Troponin I High Sens 530.4 H* D Total Protein Albumin Procalcitonin Urine Color Yellow Urine Appearance Clear Urine pH 5.0 Ur Specific [place] 1.013 Urine Protein 1+ H Urine Glucose (UA) Negative Urine Ketones Negative Urine Blood Negative Urine Nitrite Negative Urine Bilirubin Negative Urine Urobilinogen Negative Ur Leukocyte Esterase Negative Urine WBC (Auto) 1-5 Urine RBC (Auto) 0-4 U Hyaline Cast (Auto) 0 U Epithel Cells (Auto) 5-10 H Urine Bacteria (Auto) Negative Urine Yeast Not Reportable Nasal Screen MRSA (PCR) Hep Bs Antigen Hep Bs Ag Confirmation Hep Bs Antibody, Quant 10/03/23 10/03/23 10/03/23 17:15 18:10 20:11 WBC RBC Hgb POC Hgb Hct POC Hct MCV MCH MCHC RDW Std Deviation RDW Coeff of Aysha Plt Count MPV Immature Gran % (Auto) Neut % (Auto) Lymph % (Auto) [place] % (Auto) Eos % (Auto) Baso % (Auto) Neut # (Auto) Lymph # (Auto) [place] # (Auto) Eos # (Auto) Baso # (Auto) Immature Gran # (Auto) PT INR VBG pH VBG pCO2 VBG pO2 VBG HCO3 VBG O2 Saturation VBG Base Excess POC Sodium Sodium 133 L POC Potassium Potassium 3.5 D POC Chloride Chloride 84 L Carbon Dioxide 32 POC Total CO2 Anion Gap 17 H POC Anion Gap POC BUN BUN 165 H D Creatinine 6.16 H* D POC Creatinine Est Cr Clr Drug Dosing 10.2 Est GFR ( Amer) 9.0 Est GFR (Non-Af Amer) 7.7 BUN/Creatinine Ratio 26.8 H Glucose 144 H POC Glucose 153 H POC Glucose (other) Lactate Calcium 7.2 L D POC Ioniz Calcium Ivelisse Phosphorus Magnesium Total Bilirubin Direct Bilirubin AST ALT Alkaline Phosphatase Troponin I High Sens Total Protein Albumin Procalcitonin Urine Color Urine Appearance Urine pH Ur Specific [place] Urine Protein Urine Glucose (UA) Urine Ketones Urine Blood Urine Nitrite Urine Bilirubin Urine Urobilinogen Ur Leukocyte Esterase Urine WBC (Auto) Urine RBC (Auto) U Hyaline Cast (Auto) U Epithel Cells (Auto) Urine Bacteria (Auto) Urine Yeast Nasal Screen MRSA (PCR) Negative Hep Bs Antigen Hep Bs Ag Confirmation Hep Bs Antibody, Quant 10/04/23 10/04/23 10/04/23 00:40 04:15 07:39 WBC 6.19 RBC 3.41 L Hgb 9.7 L POC Hgb Hct 30.0 L POC Hct MCV 88.0 MCH 28.4 MCHC 32.3 RDW Std Deviation 49.6 H RDW Coeff of Aysha 15.4 H Plt Count 273 MPV 10.2 Immature Gran % (Auto) 0.3 Neut % (Auto) 92.9 Lymph % (Auto) 2.9 [place] % (Auto) 3.7 Eos % (Auto) 0.0 Baso % (Auto) 0.2 Neut # (Auto) 5.75 Lymph # (Auto) 0.18 L [place] # (Auto) 0.23 Eos # (Auto) 0.00 Baso # (Auto) 0.01 Immature Gran # (Auto) 0.02 PT INR VBG pH VBG pCO2 VBG pO2 VBG HCO3 VBG O2 Saturation VBG Base Excess POC Sodium Sodium 138 POC Potassium Potassium 4.0 POC Chloride Chloride 102 Carbon Dioxide 13 L POC Total CO2 Anion Gap 23 H POC Anion Gap POC BUN BUN 137 H D Creatinine 5.78 H* D POC Creatinine Est Cr Clr Drug Dosing 10.5 Est GFR ( Amer) 9.7 Est GFR (Non-Af Amer) 8.4 BUN/Creatinine Ratio 23.7 H Glucose 152 H POC Glucose 144 H 157 H POC Glucose (other) Lactate Calcium 9.7 D POC Ioniz Calcium Ivelisse Phosphorus 7.1 H Magnesium 1.8 Total Bilirubin Direct Bilirubin AST ALT Alkaline Phosphatase Troponin I High Sens Total Protein Albumin Procalcitonin Urine Color Urine Appearance Urine pH Ur Specific [place] Urine Protein Urine Glucose (UA) Urine Ketones Urine Blood Urine Nitrite Urine Bilirubin Urine Urobilinogen Ur Leukocyte Esterase Urine WBC (Auto) Urine RBC (Auto) U Hyaline Cast (Auto) U Epithel Cells (Auto) Urine Bacteria (Auto) Urine Yeast Nasal Screen MRSA (PCR) Hep Bs Antigen Pending Hep Bs Ag Confirmation Pending Hep Bs Antibody, Quant Pending PG Care Time/CCT Total # of Minutes Spent Total Time Spent with Patient: Total time spent is greater than 50% in coordination of care (as documented) at patient's floor/unit and/or counseling patient: Coding Level of Care Code 21216 SUB INP/OBS CARE 3/50MIN Diagnoses End stage renal disease N18.6 Hypotension I95.9 Hypotension type: unspecified hypotension type High anion gap metabolic acidosis E87.29 COVID-19 U07.1 Atrial fibrillation with rapid ventricular response I48.91 (2) Hypotension Hypotension type: unspecified hypotension type Qualified Code(s): I95.9 - Hypotension, unspecified
[2023-10-04] MEDS ORDERED: PANTOprazole 40 MG TAB PO SCH (09:00)
[2023-10-04] MEDS ORDERED: METOPROLOL SUCC 50MG EXT REL TAB PO SCH (09:00)
[2023-10-04] MEDS: MIDODRINE HCL 10 MG TAB PO SCH ×3 (09:29→16:53)
--- NOTE | 2023-10-04 10:35 | Pharmacy Report ---
Pharmacy Glycemic Short Note 2 - Date of Service October 04, 2023 - Glycemic Short BSG Results (Last 24 hours): 10/03/23 10/03/23 10/03/23 13:15 13:24 17:15 Glucose 142 H 144 H POC Glucose POC Glucose (other) 143 H 10/03/23 10/04/23 10/04/23 20:11 00:40 04:15 Glucose 152 H POC Glucose 153 H 144 H POC Glucose (other) 10/04/23 07:39 Glucose POC Glucose 157 H POC Glucose (other) OUTPATIENT ANTIDIABETIC REGIMEN: * Basaglar 27 units SQ HS * insulin regular 10-11 units SQ at breakfast, 5-6u @ lunch, 13-22u @ dinner ASSESSMENT: * Pt is an 83 year old male with a history of DM2 admitted with ESRD requiring emergent HD, AF/RVR, and COVID (+). Pharmacy consulted to assist with glycemic management. * BSGs [phone]/dL. Received 15 units of basal and 1 unit of bolus insulin yesterday. * Receiving dexamethasone 6mg IV daily, ordered a diet however taking minimal PO, and phenylephrine running at a low rate. iHD planned for today. * Will plan for another reduced dose HS basal scale for tonight depending on BSG given acceptable BSGs the last 24h. Will likely need titrated once improved PO intake. Novolog moderate stress scale ACHS. PLAN FOR INPATIENT GLYCEMIC CONTROL: * Hold outpatient oral diabetes medications * Basal insulin * Lantus HS scale () depending on BSG * Bolus insulin * NovoLog per scale ACHS or Q6hrs while NPO * Goal Range: Low 110 mg/dL - High 140 mg/dL * Correction Factor: 25 mg/dL/unit * Nutritional / Prandial insulin per carb ratio of 1 unit per 8 grams CHO consumed
[2023-10-04] MEDS ORDERED: PANTOprazole 40 MG in SYRINGE 0 ML IV SCH (11:00)
--- NOTE | 2023-10-04 11:00 | Cardiology Progress Note ---
Date of Service October 04, 2023 Assessment & Plan (1) Atrial fibrillation with rapid ventricular response: (2) CAD (coronary artery disease): (3) Elevated troponin: (4) Cardiomyopathy: (5) CKD (chronic kidney disease), stage V: Plan Rhythm converted from atrial fibrillation to sinus on IV amiodarone, given labile hemodynamics and multiple medical issues would continue IV amiodarone for now. Once stabilized, likely would continue oral amiodarone to reduce risk of recurrent tachydysrhythmia. Currently sinus rhythm, so anticoagulation does not need to be addressed immediately. Given markedly elevated creatinine and age greater than 80, could consider reduced dose apixaban (2.5 mg twice daily) for chronic anticoagulation, to be initiated later in his hospital course. As previously noted, very limited area of potential revascularization weighs against the risk of CABG and no percutaneous options available given the occluded vessels, therefore medical management of his coronary artery disease. Recent echo showed EF 40 to 45%, repeat echo is being obtained currently and will be reviewed. Will continue to follow. Admission and Anticipated Discharge Date Admission Date: October 03, 2023 Subjective Dialyzed last evening. Remains confused. Hemodynamics stable but remains on phenylephrine infusion, transitioning to midodrine. Rhythm converted from atrial fibrillation to sinus late yesterday, remained sinus overnight on IV amiodarone. Physical Exam 2 Physical Exam: BP normotensive on phenylephrine. Pulse 96 bpm and regular. Respirations 18. Full exam not performed (COVID-patient) Results & Data Vital Signs (Past 12 Hours) Vital Signs Temp Pulse Pulse Resp BP Pulse Ox O2 Del Method 10/04/23 10:30 96 H 118/66 10/04/23 10:00 98.4 F 97 H 10/04/23 09:00 92 H 19 116/61 91 10/04/23 08:00 93 H 22 117/63 90 10/04/23 07:50 Nasal Cannula 10/04/23 07:00 96 H 20 113/58 L 91 10/04/23 06:00 99 H 23 87 L 10/04/23 06:00 98.4 F 115/60 10/04/23 05:30 100 H 21 90 10/04/23 05:30 119/61 10/04/23 05:00 96/48 L 10/04/23 05:00 98 H 20 88 L 10/04/23 04:31 94/56 L 10/04/23 04:31 96 H 19 92 10/04/23 04:30 93 H 16 86 L 10/04/23 04:00 98.4 F 94/49 L 10/04/23 04:00 95 H 19 93 10/04/23 03:30 98.4 F 93/39 L 10/04/23 03:30 93 H 16 91 10/04/23 03:00 103/48 L 10/04/23 03:00 91 H 20 92 10/04/23 02:30 111/40 L 10/04/23 02:30 88 16 92 10/04/23 02:00 95 H 17 89 L Nasal Cannula 10/04/23 01:30 93 H 19 91 10/04/23 01:30 115/60 10/04/23 01:17 Nasal Cannula 10/04/23 01:00 100/53 L 10/04/23 01:00 91 H 19 100/53 L 91 10/04/23 00:30 108/59 L 10/04/23 00:30 91 H 19 93 10/04/23 00:00 83 19 94 10/04/23 00:00 106/55 L 10/03/23 23:30 107/52 L 10/03/23 23:30 84 16 92 10/03/23 23:08 81 10/03/23 23:00 93/46 L 10/03/23 23:00 83 18 93 O2 Flow Rate 10/04/23 10:30 10/04/23 10:00 10/04/23 09:00 10/04/23 08:00 10/04/23 07:50 4 10/04/23 07:00 10/04/23 06:00 10/04/23 06:00 10/04/23 05:30 10/04/23 05:30 10/04/23 05:00 10/04/23 05:00 10/04/23 04:31 10/04/23 04:31 10/04/23 04:30 10/04/23 04:00 10/04/23 04:00 10/04/23 03:30 10/04/23 03:30 10/04/23 03:00 10/04/23 03:00 10/04/23 02:30 10/04/23 02:30 10/04/23 02:00 4 10/04/23 01:30 10/04/23 01:30 10/04/23 01:17 2 10/04/23 01:00 10/04/23 01:00 10/04/23 00:30 10/04/23 00:30 10/04/23 00:00 10/04/23 00:00 10/03/23 23:30 10/03/23 23:30 10/03/23 23:08 10/03/23 23:00 10/03/23 23:00 PG Care Time/CCT Total # of Minutes Spent Total Time Spent with Patient: Total time spent is greater than 50% in coordination of care (as documented) at patient's floor/unit and/or counseling patient: Coding Level of Care Code 27677 SUB INP/OBS CARE 2/35MIN Diagnoses Atrial fibrillation with rapid ventricular response I48.91 CAD (coronary artery disease) I25.10 Elevated troponin R79.89 Cardiomyopathy I42.9 CKD (chronic kidney disease), stage V N18.5
--- NOTE | 2023-10-04 11:46 | XCELERA ---
[id number] [id number]
--- NOTE | 2023-10-04 13:51 | Billing Data ---
Date of Service October 04, 2023 Coding Level of Care Code 84440 SUB INP/OBS CARE MIN
--- NOTE | 2023-10-04 14:35 | Hospitalist Progress Note ---
Date of Service October 04, 2023 Assessment & Plan (1) Acute kidney injury superimposed on CKD: Plan: Nephrology consulted for emergent dialysis in setting of metabolic acidosis. He underwent hemodialysis today, October 04. Serial labs (2) High anion gap metabolic acidosis: Plan: Present on admission. He received sodium bicarbonate intravenously in the ED. Serial labs. (3) Hypotension: Plan: Wean off pressor support as tolerated. Continue midodrine. (4) Atrial fibrillation with rapid ventricular response: Plan: Converted to normal sinus rhythm with amiodarone infusion. Telemetry. Appreciate cardiology consultation and recommendations. (5) COVID-19: Plan: Nasal swab positivity. Dexamethasone order by ICU. He remains in isolation (6) Pneumonia: Plan: Questionable right lower lobe infiltrate on chest x-ray. He received cefepime in the ED. Will follow (7) Acute hypoxemic respiratory failure: Plan: Oxygen per nasal cannula to maintain saturation greater than 90%. Wean off as tolerated (8) Cardiomyopathy: Plan: Recent anterior wall NV with known ischemic cardiomyopathy. Most recent echo revealed ejection fraction 40%. Medical management (9) Acute combined systolic and diastolic CHF, NYHA class 3: Plan: Continue hemodialysis per nephrology schedule. Serial chest x-ray. (10) Controlled type 2 diabetes mellitus with kidney complication, with long- term current use of insulin: Plan: ADA diet. Sliding scale coverage. Basal insulin if needed. 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 Tamsulosin on hold due to hypotension Plan To be determined Admission and Anticipated Discharge Date Admission Date: October 03, 2023 Subjective The patient was seen in his room while on hemodialysis. He is lethargic. Cardiology entry noted. He has converted from atrial fibrillation to normal sinus rhythm with amiodarone infusion. Chest x-ray consistent with CHF. Most recent cardiac echo reveals ejection fraction of 40%. This was obtained in August. Limited cardiac echo ordered. BNP is markedly elevated at 2355 as expected. COVID-positive nasal swab on admission but this is not acute Review of Systems 2 Review of Systems: The patient is unable to answer any questions regarding review of systems at this time Physical Exam 2 Physical Exam: General-lethargic. Nonverbal. No fever. HEENT-head atraumatic and normocephalic, pupils equal and reactive to light, extraocular muscles intact Neck-no lymphadenopathy or thyromegaly, trachea midline Chest-diminished breath sounds anteriorly. No wheezing. i Cardiac-regular rhythm at this time with controlled rate. Normal S1 and S2 Abdomen-normal bowel sounds, nontender, no hepatosplenomegaly Extremities-1+ pitting edema bilateral lower extremities below the knees Neuro-cannot assess due to lethargy Psych-cannot assess due to lethargy Results & Data Results & Data Vital Signs (Past 12 Hours) Vital Signs Temp Pulse Pulse Resp BP Pulse Ox O2 Del Method 10/04/23 13:40 93 H 20 120/62 94 10/04/23 13:00 99 H 16 102/65 90 10/04/23 12:40 97 H 25 H 121/59 L 91 10/04/23 12:12 90 18 131/65 95 10/04/23 12:00 89 19 101/62 93 10/04/23 12:00 91 H 101/62 10/04/23 11:50 95 H 20 99/59 L 93 10/04/23 11:30 95 H 95/52 L 10/04/23 11:00 96 H 20 116/65 93 10/04/23 11:00 95 H 116/65 10/04/23 10:45 95 H 10/04/23 10:30 96 H 118/66 10/04/23 10:00 96 H 27 H 124/73 89 L 10/04/23 10:00 36.9 C 97 H 10/04/23 09:30 95 H 18 116/65 91 10/04/23 09:00 92 H 19 116/61 91 10/04/23 08:00 93 H 22 117/63 90 10/04/23 07:50 Nasal Cannula 10/04/23 07:00 96 H 20 113/58 L 91 10/04/23 06:00 99 H 23 87 L 10/04/23 06:00 36.9 C 115/60 10/04/23 05:30 100 H 21 90 10/04/23 05:30 119/61 10/04/23 05:00 96/48 L 10/04/23 05:00 98 H 20 88 L 10/04/23 04:31 94/56 L 10/04/23 04:31 96 H 19 92 10/04/23 04:30 93 H 16 86 L 10/04/23 04:00 36.9 C 94/49 L 10/04/23 04:00 95 H 19 93 10/04/23 03:30 36.9 C 93/39 L 10/04/23 03:30 93 H 16 91 10/04/23 03:00 103/48 L 10/04/23 03:00 91 H 20 92 10/04/23 02:30 111/40 L 10/04/23 02:30 88 16 92 O2 Flow Rate 10/04/23 13:40 10/04/23 13:00 10/04/23 12:40 10/04/23 12:12 10/04/23 12:00 10/04/23 12:00 10/04/23 11:50 10/04/23 11:30 10/04/23 11:00 10/04/23 11:00 10/04/23 10:45 10/04/23 10:30 10/04/23 10:00 10/04/23 10:00 10/04/23 09:30 10/04/23 09:00 10/04/23 08:00 10/04/23 07:50 4 10/04/23 07:00 10/04/23 06:00 10/04/23 06:00 10/04/23 05:30 10/04/23 05:30 10/04/23 05:00 10/04/23 05:00 10/04/23 04:31 10/04/23 04:31 10/04/23 04:30 10/04/23 04:00 10/04/23 04:00 10/04/23 03:30 10/04/23 03:30 10/04/23 03:00 10/04/23 03:00 10/04/23 02:30 10/04/23 02:30 Laboratory Results 10/04/23 04:15 10/04/23 04:15 PG Care Time/CCT Total # of Minutes Spent Total Time Spent with Patient: Total time spent is greater than 50% in coordination of care (as documented) at patient's floor/unit and/or counseling patient: Coding Level of Care Code 28323 SUB INP/OBS CARE 3/50MIN Diagnoses Acute kidney injury superimposed on CKD N17.9; N18.9 High anion gap metabolic acidosis E87.29 Hypotension I95.9 Hypotension type: unspecified hypotension type Atrial fibrillation with rapid ventricular response I48.91 COVID-19 U07.1 Pneumonia J18.9 Acute hypoxemic respiratory failure J96.01 Cardiomyopathy I42.9 Acute combined systolic and diastolic CHF, 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 Controlled type 2 diabetes mellitus with kidney complication, with long-term current use of insulin E11.29; Z79.4 BPH with obstruction/lower urinary tract symptoms N40.1; N13.8 (3) Hypotension Hypotension type: unspecified hypotension type Qualified Code(s): I95.9 - Hypotension, unspecified
[2023-10-04] MEDS: ACETAMINOPHEN 500 MG TAB PO PRN (15:43)
[2023-10-04] MEDS ORDERED: 0.2 MICRON FILTER SET 1 EACH IV ONE (18:54)
[2023-10-04] MEDS ORDERED: AMIODARONE / D5W 150 MG/100 ML BAG IV STA (18:54)
--- NOTE | 2023-10-04 19:20 | Communication Note ---
Date of Service: October 04, 2023 Notified by RN at 1855 patient has converted to AFRVR with HR 150-170. His BP is stable off neosynephrine. Remains on Amiodarone infusion at 0.5mg/min. iHD with 2L off today. Given his difficulty with hypotension will give another amiodarone bolus now. If unable to maintain < 130bpm may consider low dose Lopressor to augment rate control vs. increasing infusion back to 1mg/min. Consider POCUS to establish volume status (TTE today with mildly dilated IVC prior to iHD). Will touch base with Cardiology as they are managing the antiarrhythmics. Coding Level of Care Code None
[2023-10-04] MEDS ORDERED: LANTUS PER UNIT CHARGE SC SCH (21:00)
[2023-10-04] MEDS: SENNA 8.6 MG TAB PO SCH (21:25)
[2023-10-04] MEDS: traMADol HCL 50 MG TABLET PO PRN (21:39)
[2023-10-05] MEDS: AMIODARONE / D5W 360 MG/200 ML BAG IV SCH ×4 (00:44→19:40)
[2023-10-05] MEDS: PHENYLEPHRINE/NSS 25 MG/250 ML BAG IV SCH ×2 (04:34→16:56)
[2023-10-05 05:07] LABS: Basophils # (auto) 0.01 K/uL (0.00-0.20); Basophils % (auto) 0.1 %; Hematocrit (blood only) 31.5 % (42.0-52.0); Hemoglobin 10.2 g/dl (14.0-18.0); Immature Granulocytes # (auto) 0.07 K/uL (0.01-0.20); Immature Granulocytes % (auto) 0.9 %; Lymphocytes # (auto) 0.48 K/uL (1.20-3.40); Lymphocytes % (auto) 5.8 %; Mean Corpuscular Hemoglobin 28.6 pg (25.0-34.0); Mean Corpuscular Hgb Conc 32.4 g/dL (32.0-36.0); Mean Corpuscular Volume 88.2 fL (80.0-100.0); Mean Platelet Volume 9.9 fL (9.4-12.4); Monocytes # (auto) 1.06 K/uL (0.11-0.59); Monocytes % (auto) 12.9 %; Neutrophils # (auto) 6.59 K/uL (1.40-6.50); Neutrophils % (auto) 80.3 %; Platelet Count 281 K/uL (130-400); RDW Coefficient of Variation 15.6 % (11.5-14.5); RDW Standard Deviation 50.8 fL (36.4-46.3); Red Blood Count 3.57 M/uL (4.70-6.10); White Blood Count 8.21 K/ul (4.8-10.8)
[2023-10-05] MEDS ORDERED: METOPROLOL TARTRATE 1 MG/ML VIAL IV STA (05:12)
[2023-10-05 05:22] LABS: Calcium 10.7 mg/dl (8.6-10.3); Potassium 3.5 mmol/L (3.5-5.1)
[2023-10-05] MEDS: LEVOTHYROXINE SODIUM 50 MCG TABLET PO SCH (05:27)
[2023-10-05 05:32] LABS: BUN Creatinine Ratio 18.6 (10-20); Creatinine Clr Calc Pharmacy 11.9 ml/min; Est GFR (African American) 11.2 ml/min; Est GFR (Non-African American) 9.7 ml/min
--- NOTE | 2023-10-05 07:12 | Critical Care Progress Note ---
Date of Service October 05, 2023 Assessment & Plan (1) High blood urea nitrogen (BUN): (2) COVID-19: (3) Atrial fibrillation with rapid ventricular response: (4) End stage renal disease: (5) High anion gap metabolic acidosis: (6) Acute kidney injury superimposed on CKD: (7) CKD (chronic kidney disease), stage V: (8) Acute combined systolic and diastolic CHF, NYHA class 3: Plan Impression: 83-year-old male with multiple medical problems delineated on admission H&P. His biggest critical care issues are atrial fibrillation with rapid ventricular response, hypotension, severe acidosis, end-stage renal disease with severe uremia needing urgent dialysis. Temporary HD catheter was placed in the emergency room under ultrasound guidance. Please refer to separate dialysis catheter placement note. Neurologic - Patient may have some underlying encephalopathy related to significant uremia and acid-base disturbances. - BUN, Cr, HCO3 levels all improving; re-evaluate if improved levels don't correlate w/ clinical improvement - Will continue to follow, trend CMP/BMP Cardiovascular - Atrial fibrillation with rapid ventricular response, converted to normal sinus rhythm two separate times now after receiving 2 150 mg boluses of amiodarone. Today, 10/05/23, pt continues on amiodarone drip - Defer anticoagulation for now, HAS BLED, +4, will need to be anti-coagulated upon discharge per cardiology for AFib - Hx of severe three-vessel coronary disease which is being managed medically. - Defer to cardiology for use of inotropic agents (dobutamine or milrinone), these may aggravate his atrial arrhythmia. - Patient may require pressor support during dialysis. Would be reluctant to use other sympathomimetics which may potentially aggravate his atrial arrhythmia. - Neosynephrine stopped 10/05/23,; midodrine, 10 mg, PO, TID continued to be used as pressor - r. and l. calf pain noted on exam, venous Doppler of both LEs did not note DVT, l. popliteal cyst noted - DVT prophylaxis, heparin, 5000 U, subQ, BID Pulmonary - Hypoxemic respiratory failure. Secondary to volume overload, COVID, and basilar atelectasis. - Continue oxygen as needed. Will see how he responds to volume removal with dialysis. Incentive spirometry. See comments regarding COVID below. - Patient does state that he does not want to pursue intubation mechanical ventilation in the event of respiratory deterioration or arrest. Unclear if CPR or cardioversion is wanted; will need to address if and when patient is deemed to have capacity - VBG: pH, 7.06; pCO2, 36; pO2, 33 - CXR (10/05/23) --> increase in bibasilar opacities (right more than left); small right, trace left pleural effusions - not significantly different from [facility] discharge on 09/22/2023, continue to hold antibiotics Renal - End-stage renal disease now requiring dialysis. Significantly uremic. - Cr, 5.1 <-- 5.8 <-- 8.0 ; BUN, 95 <-- 137 <-- 205 (baseline Cr ~ 5-6) --> both improving - HCO3, 19 <-- 13, he has refractory acidosis, HCO3 infusion stopped; AG, 17 <-- 23 - Will defer bicarb to nephrology. bicarb stopped. Dialysis yesterday, his acidosis, uremia, and JV are improving. - hyperphosphatemia, P, 6.0 <-- 7.1 <-- 9.6, Phosphate also elevated. Defer to nephrology whether to use phosphate binders. - Danielson catheter has been placed. The patient has a history of BPH. ID - COVID-positive. Patient afebrile currently with a normal WBC count; WBC, 8.2 - Procalcitonin, 1.73, mildly elevated, significance with end-stage renal disease requiring dialysis is somewhat unclear. - CRP, 0.76, inflammatory marker level in context of patient's current medical condition likely unreliable - Given CXR abnormalities, seems prudent to initiate dexamethasone 6 mg daily. Dose of cefepime in ED, discontinue - CXR (10/03/23) --> bibasilar consolidation persists - not significantly different from [facility] discharge on 09/22/2023, making bacterial pneumonia less likely, antibiotics held - If he coughs up phlegm, sputum culture should be obtained. - blood CXs, no growth after 24 hrs, urine Cx, no growth - MRSA (nares), neg GI - No current issues - heart healthy diet, volume-restricted to 1500 mL Heme-onc - Mild anemia likely secondary to CKD. No evidence of acute blood loss, no indication for transfusion currently. - Hgb, 10.2 <-- 9.7 <-- 11.3, ~ 1.5 of net fluid, so likely hemodilution Endocrine - Glycemic control per protocol. DVT Prophylaxis: Heparin, 5000 U, subQ, BID Code: Conditional Code (patient does not want intubation) Patient's overall prognosis is guarded. Unclear how he will tolerate dialysis with his current hemodynamics. He is critically ill with multisystem organ dysfunction and significant possibility of clinical decline. Admission and Anticipated Discharge Date Admission Date: October 03, 2023 Supervising Physician Co-Signing Physician Notes Patient seen and examined. EMR reviewed. Reviewed films independently. Discussed with bedside critical care nurse and on multidisciplinary rounds as well as with family practice resident. Agree with assessment plan as noted above. Patient continues to tolerate hemodialysis well. Will see if he can tolerate it today without requiring vasopressor agents. If so, he can likely downgrade from the intensive care unit to the floor. Continue dexamethasone for COVID. No indication for additional antibiotics currently. Continue amiodarone for atrial fibrillation. Will decrease dose down to 0.5 mg and restart his oral beta- aimee. Will continue midodrine for his hypotension. If the patient cannot tolerate dialysis without blood pressure support, we may need to keep him in the intensive care unit. Advancing diet as tolerated. Will initiate PT and OT evaluations. Out of bed to chair as tolerated. Will need aggressive rehab. Will sign off if the patient downgraded from ICU status Subjective Davin Gaviria is 83 yo M w/ PMHx of CKD, hypertension, hyperlipidemia, iron deficiency anemia, hypothyroidism, BPH, recent admission to [facility] for acute hypoxic respiratory failure secondary to acute MN (NSTEMI, Sep 182022) with new ischemic cardiomyopathy with EF of 45% who presented to ED referred from preop for permacath placement for new onset A-fib with RVR and hypotension in addition to testing positive for COVID-19 (BP 80/60s with heart rate in the 160s). Reported 2 weeks of cough. No fever or chills. Increased shortness of breath since discharge. Sodium bicarb 50 meq IV for metabolic acidosis was recommended to stabilize prior to dialysis and amiodarone IV drip instead of diltiazem given he does much better in NSR and BP improves; recent NSTEMI with borderline EF and already converting in and out of AFib. Patient pleasant, cooperative this morning for me but w/ inappropriate mental status, agreeable to everything, seems to deny any clinical symptoms whatsoever. AAO x1 (not to time or place). When observed coughing, patient did eventually endorse cough and chest congestion. Initially denied calf tenderness while grimacing with calf squeeze/palpation; when pointed out, patient then endorsed calf pain Review of Systems Constitutional: no fever, no chills, no body aches and no weakness Respiratory: + cough, + chest congestion and + dyspne a (a little) Cardiovascular: no chest pain and no palpitations Gastrointestinal: no abdominal pain, no nausea, no vomiting and no diarrhea/loose stools Genitourinary: no dysuria or no urinary frequency Neurologic: no tingling and no numbness Physical Exam Constitutional: WD/WN, vitals as above ENMT: Ears: no external ear abnormality and able to visualize TM Nose: no turbinate abnormality and no nasal discharge Respiratory: + cough and able to speak in complete se ntences; no respiratory distress Cardiovascular: Rate/Rhythm: regular rate; + abnormal rhythm Heart Sounds: + murmur Extremities: normal capillary refill and + calf tenderness (pronounced l. calf tenderness, mild r. calf tenderness); no pedal edema Gastrointestinal (Abdomen): normal bowel sounds, soft, nontender, no hepatosplenomegaly Neurologic: PERRL, EOMI, accommodation nl, no face palsy, no dysarthria CN's II-XI intact bilaterally Psychiatric: Orientation: alert, oriented to person, oriented to place and cooperative; + not oriented to time Eye Contact: good eye contact Results & Data Results & Data Vital Signs (Past 12 Hours) Vital Signs Pulse Resp BP Pulse Ox Pulse Ox O2 Del Method 10/05/23 06:10 88 20 94 10/05/23 06:10 120/70 10/05/23 06:00 116/64 10/05/23 06:00 90 20 94 10/05/23 05:50 123/69 10/05/23 05:50 87 23 93 10/05/23 05:42 89 116/64 10/05/23 05:40 103/77 10/05/23 05:40 137 H 21 90 10/05/23 05:30 127 H 23 95 10/05/23 05:30 98/72 L 10/05/23 05:27 136 H 104/69 10/05/23 05:20 143 H 20 92 10/05/23 05:20 104/69 10/05/23 05:10 148 H 22 92 10/05/23 05:10 114/88 10/05/23 05:00 115/72 10/05/23 05:00 148 H 25 H 92 10/05/23 04:50 98 H 23 93 10/05/23 04:50 124/70 10/05/23 04:40 104 H 23 90 10/05/23 04:40 123/59 L 10/05/23 04:31 131 H 17 10/05/23 04:31 105/84 10/05/23 04:20 132/67 10/05/23 04:20 98 H 21 95 10/05/23 04:10 100 H 21 86 L 10/05/23 04:10 136/66 10/05/23 04:00 104 H 24 98 10/05/23 04:00 134/73 10/05/23 03:50 97 H 24 96 10/05/23 03:50 124/87 10/05/23 03:40 100 H 23 100 10/05/23 03:40 129/77 10/05/23 03:30 107 H 20 97 10/05/23 03:30 128/80 10/05/23 03:20 107 H 20 95 10/05/23 03:20 134/70 10/05/23 03:10 101 H 16 99 10/05/23 03:10 129/63 10/05/23 03:00 131/65 10/05/23 03:00 105 H 18 99 10/05/23 02:50 107 H 20 99 10/05/23 02:50 133/80 10/05/23 02:40 132/66 10/05/23 02:40 105 H 19 98 10/05/23 02:30 102 H 18 94 10/05/23 02:30 127/73 10/05/23 02:20 108 H 19 99 10/05/23 02:20 133/80 10/05/23 02:10 103 H 16 97 10/05/23 02:10 128/67 10/05/23 02:00 100 H 20 96 10/05/23 02:00 120/72 10/05/23 01:50 148/92 H 10/05/23 01:50 94 10/05/23 01:40 96 10/05/23 01:40 115/68 10/05/23 01:30 128/68 10/05/23 01:30 101 H 97 10/05/23 01:20 107 H 24 94 10/05/23 01:20 123/74 10/05/23 01:00 102 H 16 97 10/05/23 01:00 122/64 10/05/23 00:50 106 H 25 H 97 10/05/23 00:50 125/76 10/05/23 00:30 125/72 10/05/23 00:30 104 H 21 97 10/05/23 00:20 109 H 23 96 10/05/23 00:20 131/82 10/05/23 00:10 125/51 L 10/05/23 00:10 109 H 22 98 10/05/23 00:00 103 H 20 98 10/05/23 00:00 113/93 10/04/23 23:50 99 H 22 95 10/04/23 23:50 121/64 10/04/23 23:40 101 H 21 97 10/04/23 23:40 121/59 L 10/04/23 23:30 106 H 26 H 96 10/04/23 23:30 127/71 10/04/23 23:28 102 H 10/04/23 23:20 134/76 10/04/23 23:20 108 H 22 97 10/04/23 23:10 107 H 20 93 10/04/23 23:10 130/69 10/04/23 23:00 106 H 18 95 10/04/23 23:00 125/66 10/04/23 22:50 101 H 21 97 10/04/23 22:50 119/67 10/04/23 22:40 103 H 22 95 10/04/23 22:40 116/62 10/04/23 22:30 112/65 10/04/23 22:30 96 H 20 96 10/04/23 22:20 97 H 21 98 10/04/23 22:20 110/60 10/04/23 22:10 98 H 21 94 10/04/23 22:10 106/59 L 10/04/23 22:00 106/61 10/04/23 22:00 103 H 21 94 10/04/23 21:50 113/61 10/04/23 21:50 106 H 21 97 10/04/23 21:40 114/64 10/04/23 21:40 103 H 22 97 10/04/23 21:30 107 H 18 98 10/04/23 21:30 120/61 10/04/23 21:20 105 H 21 100 10/04/23 21:20 117/70 10/04/23 21:10 102 H 21 100 10/04/23 21:10 117/66 10/04/23 21:00 134/65 10/04/23 21:00 117 H 24 98 10/04/23 20:50 112 H 23 98 10/04/23 20:50 120/74 10/04/23 20:40 111 H 22 95 10/04/23 20:40 131/72 10/04/23 20:30 140/68 10/04/23 20:30 111 H 22 100 10/04/23 20:21 108/84 10/04/23 20:21 149 H 25 H 89 L 10/04/23 20:10 117/84 10/04/23 20:10 141 H 24 98 10/04/23 20:00 136 H 23 99 10/04/23 20:00 128/77 10/04/23 20:00 98 Nasal Cannula 10/04/23 19:51 151 H 24 93 10/04/23 19:51 112/56 L 10/04/23 19:40 112/66 10/04/23 19:40 149 H 22 95 10/04/23 19:30 126 H 20 93 10/04/23 19:30 112/77 10/04/23 19:20 153 H 22 86 L 10/04/23 19:20 113/81 10/04/23 19:10 155 H 25 H 89 L 10/04/23 19:10 111/95 Critical Care Results & Data Vital Signs (Past 12 Hours) Vital Signs Temp Pulse Resp BP Pulse Ox O2 Del Method O2 Flow Rate 10/05/23 11:00 81 19 118/60 92 Oxymask 5 10/05/23 10:00 90 20 115/64 92 Oxymask 5 10/05/23 09:46 Nasal Cannula 10/05/23 09:00 94 H 16 91 Nasal Cannula 4 01/12/24 08:00 96 H 20 120/76 93 Nasal Cannula 4 10/05/23 07:30 36.6 C 10/05/23 07:30 Nasal Cannula 3 10/05/23 07:00 90 24 115/63 92 Nasal Cannula 2 10/05/23 06:10 88 20 94 10/05/23 06:10 120/70 10/05/23 06:00 116/64 10/05/23 06:00 90 20 94 10/05/23 05:50 123/69 10/05/23 05:50 87 23 93 10/05/23 05:42 89 116/64 10/05/23 05:40 103/77 10/05/23 05:40 137 H 21 90 10/05/23 05:30 127 H 23 95 10/05/23 05:30 98/72 L 10/05/23 05:27 136 H 104/69 10/05/23 05:20 143 H 20 92 10/05/23 05:20 104/69 10/05/23 05:10 148 H 22 92 10/05/23 05:10 114/88 10/05/23 05:00 115/72 10/05/23 05:00 148 H 25 H 92 10/05/23 04:50 98 H 23 93 10/05/23 04:50 124/70 10/05/23 04:40 104 H 23 90 10/05/23 04:40 123/59 L 10/05/23 04:31 131 H 17 10/05/23 04:31 105/84 10/05/23 04:20 132/67 10/05/23 04:20 98 H 21 95 10/05/23 04:10 100 H 21 86 L 10/05/23 04:10 136/66 10/05/23 04:00 104 H 24 98 10/05/23 04:00 134/73 10/05/23 03:50 97 H 24 96 10/05/23 03:50 124/87 10/05/23 03:40 100 H 23 100 10/05/23 03:40 129/77 10/05/23 03:30 107 H 20 97 10/05/23 03:30 128/80 10/05/23 03:20 107 H 20 95 10/05/23 03:20 134/70 10/05/23 03:10 101 H 16 99 10/05/23 03:10 129/63 10/05/23 03:00 131/65 10/05/23 03:00 105 H 18 99 10/05/23 02:50 107 H 20 99 10/05/23 02:50 133/80 10/05/23 02:40 132/66 10/05/23 02:40 105 H 19 98 10/05/23 02:30 102 H 18 94 10/05/23 02:30 127/73 10/05/23 02:20 108 H 19 99 10/05/23 02:20 133/80 10/05/23 02:10 103 H 16 97 10/05/23 02:10 128/67 10/05/23 02:00 100 H 20 96 10/05/23 02:00 120/72 10/05/23 01:50 148/92 H 10/05/23 01:50 94 10/05/23 01:40 96 10/05/23 01:40 115/68 10/05/23 01:30 128/68 10/05/23 01:30 101 H 97 10/05/23 01:20 107 H 24 94 10/05/23 01:20 123/74 10/05/23 01:00 102 H 16 97 10/05/23 01:00 122/64 10/05/23 00:50 106 H 25 H 97 10/05/23 00:50 125/76 10/05/23 00:30 125/72 10/05/23 00:30 104 H 21 97 10/05/23 00:20 109 H 23 96 10/05/23 00:20 131/82 Lab & Micro Results (Past 24 Hours) RBC 3.57 M/uL (4.70-6.10) L 10/05/23 WBC 8.21 K/ul (4.8-10.8) 10/05/23 Hgb 10.2 g/dl (14.0-18.0) L 10/05/23 Hct 31.5 % (42.0-52.0) L 10/05/23 MCV 88.2 fL (80.0-100.0) 10/05/23 MCH 28.6 pg (25.0-34.0) 10/05/23 MCHC 32.4 g/dL (32.0-36.0) 10/05/23 RDW Standard Deviation 50.8 fL (36.4-46.3) H 10/05/23 RDW Coefficient of Variation 15.6 % (11.5-14.5) H 10/05/23 Plt Count 281 K/uL (130-400) 10/05/23 MPV 9.9 fL (9.4-12.4) 10/05/23 Neutrophils (%) (Auto) 80.3 % 10/05/23 Lymphocytes (%) (Auto) 5.8 % 10/05/23 Monocytes # (Auto) 1.06 K/uL (0.11-0.59) H 10/05/23 Eosinophils # (Auto) 0.00 K/uL (0.00-0.50) 10/05/23 Immature Granulocyte % (Auto) 0.9 % 10/05/23 Neutrophils # (Auto) 6.59 K/uL (1.40-6.50) H 10/05/23 Lymphocytes # (Auto) 0.48 K/uL (1.20-3.40) L 10/05/23 Monocytes # (Auto) 1.06 K/uL (0.11-0.59) H 10/05/23 Eosinophils # (Auto) 0.00 K/uL (0.00-0.50) 10/05/23 Basophils # (Auto) 0.01 K/uL (0.00-0.20) 10/05/23 Immature Granulocyte # (Auto) 0.07 K/uL (0.01-0.20) 4 Na 140 mmol/L (136-145) 10/05/23 K 3.5 mmol/L (3.5-5.1) 10/05/23 Cl 104 mmol/L (98-107) 10/05/23 CO2 19 mmol/L (21-32) L 10/05/23 Anion Gap 17 (3-11) H 10/05/23 BUN 95 mg/dl (6-23) H 10/05/23 Creatinine 5.12 mg/dl (0.6-1.4) H* 10/05/23 Estimated GFR ( Amer) 11.2 ml/min 10/05/23 Estimated GFR (Non-Af Amer) 9.7 ml/min 10/05/23 BUN/Creatinine Ratio 18.6 (10-20) 10/05/23 Glu 153 mg/dl (70-99(Fasting)) H 10/05/23 Ca 10.7 mg/dl (8.6-10.3) H 10/05/23 Phosphorus Level 6.0 mg/dl (2.5-4.9) H 10/05/23 Mg 2.0 mg/dl (1.7-2.4) 10/05/23 04:33 Calcium Level 10.7 mg/dl (8.6-10.3) H 10/05/23 04:33 Microbiology 10/03/23 13:51 Urine Culture - Final Urine,Clean Catch No growth - less than 1,000 colonies/mL. 10/03/23 13:30 Aerobic Blood Culture - Preliminary Blood No growth in Aerobic bottle after 24 hours. Anaerobic Blood Culture - Preliminary No growth in Anaerobic bottle after 24 hours. 10/03/23 13:15 Aerobic Blood Culture - Preliminary Blood No growth in Aerobic bottle after 24 hours. Anaerobic Blood Culture - Preliminary No growth in Anaerobic bottle after 24 hours. Diagnostic Findings (Past 24 Hours) Venous Doppler Study 10/05/23 08:23 BILATERAL LOWER EXTREMITY VENOUS DOPPLER CLINICAL HISTORY: Right calf pain. COMPARISON STUDY: Bilateral lower extremity venous Doppler ultrasound May 02, 2007. TECHNIQUE: Sonography of the deep venous system of the bilateral lower extremities was performed. Compression and augmentation were evaluated. FINDINGS: The bilateral common femoral, superficial femoral and popliteal veins were compressible. Augmentation was normal. Flow was shown within the deep calf vessels. There is a 4.2 x 4.2 x 2 cm oval-shaped complex abnormality within the left popliteal fossa. This was also present prior ultrasound appears decreased in size since that exam. This contains no color flow. IMPRESSION: 1. No evidence of deep venous thrombus within the bilateral lower extremities. 2. 4.2 x 4.2 x 2 cm complex abnormality within the left popliteal fossa. When correlating with prior ultrasound of May 12, 2007, this favors a complex popliteal cyst. ACT 112: Negative or not required by law. Electronically signed by: Carlos Hernández M.D. 10/05/2023 9:59 AM Chest X-Ray 10/05/23 10:07 XR chest 1V portable CLINICAL HISTORY: Congestive heart failure. Respiratory failure. COMPARISON STUDY: Chest radiograph October 03, 2023. FINDINGS: Tip of the right jugular dual lumen catheter projects over the mid SVC. There is no pneumothorax. Small right and trace left pleural effusions are noted. Right basilar opacity has increased. Left basilar opacity is again noted. There is persistent mild pulmonary edema. Cardiomediastinal silhouette is stable. IMPRESSION: 1. Cardiomegaly with persistent pulmonary edema. 2. Small right and trace left pleural effusions. 3. Increase in bibasilar opacities, right greater than left. The findings could reflect atelectasis or pneumonia. ACT 112: Negative or not required by law. Electronically signed by: Carlos eHrnández M.D. 10/05/2023 10:53 AM I & O Totals 24 Hours 10/04/23 10/05/23 10/06/23 06:59 06:59 06:59 Intake Total 2936.672 / 2936.672 1520.322 / 1520.322 318.85 / 318.85 Output Total 1750 / 1750 910 / 910 175 / 175 Balance 1186.672 / 1186.672 610.322 / 610.322 143.85 / 143.85 Cumulative 10/03/23 12:12 thru 10/05/23 10:20 Intake Total 4775.844 Output Total 2835 Balance 1940.844 RT Ventilator Mngmt (Last Documented) Ventilator Ordered Settings Respiratory Rate 19 10/05/23 11:00 Fraction of Inspired Oxygen 28 10/03/23 22:30 Ventilator - PT Measurements Respiratory Rate 19
[2023-10-05] MEDS: INSULIN ASPART PER UNIT CHARGE SC SCH ×4 (08:02→20:14)
[2023-10-05] MEDS: LANTUS PER UNIT CHARGE SC SCH ×2 (08:03→20:14)
[2023-10-05] MEDS: MIDODRINE HCL 10 MG TAB PO SCH ×3 (08:04→17:48)
[2023-10-05] MEDS: ASPIRIN 81 MG ECTAB PO SCH (08:04)
[2023-10-05] MEDS: dexAMETHasone 6 MG in SYRINGE 0 ML IV SCH (08:05)
[2023-10-05] MEDS: CLOPIDOGREL BISULFATE 75 MG TAB PO SCH (08:05)
[2023-10-05] MEDS: ATORVASTATIN 40 MG TAB PO SCH (08:05)
[2023-10-05] MEDS: DOCUSATE SODIUM 100 MG CAP PO SCH ×2 (08:06→19:57)
[2023-10-05] MEDS: NEPHROCAPS PO SCH (08:06)
[2023-10-05] MEDS: FLUTICASONE PROPIONATE NA SPR 16 GM BTL NAE SCH ×2 (08:06→19:57)
[2023-10-05] MEDS ORDERED: SODIUM CHLORIDE 0.9% 1,000 ML IV PRN (08:29)
--- NOTE | 2023-10-05 08:29 | Nephrology Progress Note ---
Date of Service October 05, 2023 Assessment & Plan (1) End stage renal disease: Plan: * 1st HD 10/03/23 via temporary IJ catheter. Had 2nd HD 10/04/22 for 1.5L UF * Remains azotemic, metabolic acidosis has improved w/ HD * Will schedule 3rd HD for today. Plan 4 hours w/ 1.5L UF to maintain euvolemic state. Orders have been placed in EMR and HD RN notified * Monitor PRP (2) Hypotension: Plan: * Phenylephrine has been weaned off. Remains on TID Midodrine * 10/03/23 Blood and urine cultures - NGTD (3) High anion gap metabolic acidosis: Plan: * Correcting w/ HD (4) COVID-19: Plan: * On IV Dexamethasone (5) Atrial fibrillation with rapid ventricular response: Plan: * Currently in NSR. Remains on Amiodarone gtt as per Cardiology Admission and Anticipated Discharge Date Admission Date: October 03, 2023 Subjective Mr. Gaviria was evaluated in the ICU this morning. He was dialyzed yesterday via temporary IJ HD catheter for 3 hours for 1.5L UF. There were no complications. Review of Systems Constitutional: no fever Eyes: no problem reported Ear, Nose, Mouth, Throat: no problem reported Respiratory: no cough and no dyspnea Cardiovascular: no chest pain Gastrointestinal: no abdominal pain, no nausea, no vomiting and no di arrhea/loose stools Physical Exam Eyes: PERRL, conjunctivae normal, anicteric sclerae ENMT: external ear and nose normal, oropharynx normal Neck: trachea midline, no thyromegaly Respiratory: normal respiratory effort, lungs clear to auscultation Cardiovascular: Rate/Rhythm: regular rate and regular rhythm Extremities: no edema Gastrointestinal (Abdomen): normal bowel sounds, soft, nontender, no hepatosplenomegaly Results & Data Vital Signs (Past 12 Hours) Vital Signs Pulse Resp BP Pulse Ox O2 Del Method O2 Flow Rate 10/05/23 07:30 Nasal Cannula 3 10/05/23 07:00 90 24 115/63 92 Nasal Cannula 2 10/05/23 06:10 88 20 94 10/05/23 06:10 120/70 10/05/23 06:00 116/64 10/05/23 06:00 90 20 94 10/05/23 05:50 123/69 10/05/23 05:50 87 23 93 10/05/23 05:42 89 116/64 10/05/23 05:40 103/77 10/05/23 05:40 137 H 21 90 10/05/23 05:30 127 H 23 95 10/05/23 05:30 98/72 L 10/05/23 05:27 136 H 104/69 10/05/23 05:20 143 H 20 92 10/05/23 05:20 104/69 10/05/23 05:10 148 H 22 92 10/05/23 05:10 114/88 10/05/23 05:00 115/72 10/05/23 05:00 148 H 25 H 92 10/05/23 04:50 98 H 23 93 10/05/23 04:50 124/70 10/05/23 04:40 104 H 23 90 10/05/23 04:40 123/59 L 10/05/23 04:31 131 H 17 10/05/23 04:31 105/84 10/05/23 04:20 132/67 10/05/23 04:20 98 H 21 95 10/05/23 04:10 100 H 21 86 L 10/05/23 04:10 136/66 10/05/23 04:00 104 H 24 98 10/05/23 04:00 134/73 10/05/23 03:50 97 H 24 96 10/05/23 03:50 124/87 10/05/23 03:40 100 H 23 100 10/05/23 03:40 129/77 10/05/23 03:30 107 H 20 97 10/05/23 03:30 128/80 10/05/23 03:20 107 H 20 95 10/05/23 03:20 134/70 10/05/23 03:10 101 H 16 99 10/05/23 03:10 129/63 10/05/23 03:00 131/65 10/05/23 03:00 105 H 18 99 10/05/23 02:50 107 H 20 99 10/05/23 02:50 133/80 10/05/23 02:40 132/66 10/05/23 02:40 105 H 19 98 10/05/23 02:30 102 H 18 94 10/05/23 02:30 127/73 10/05/23 02:20 108 H 19 99 10/05/23 02:20 133/80 10/05/23 02:10 103 H 16 97 10/05/23 02:10 128/67 10/05/23 02:00 100 H 20 96 10/05/23 02:00 120/72 10/05/23 01:50 148/92 H 10/05/23 01:50 94 10/05/23 01:40 96 10/05/23 01:40 115/68 10/05/23 01:30 128/68 10/05/23 01:30 101 H 97 10/05/23 01:20 107 H 24 94 10/05/23 01:20 123/74 10/05/23 01:00 102 H 16 97 10/05/23 01:00 122/64 10/05/23 00:50 106 H 25 H 97 10/05/23 00:50 125/76 10/05/23 00:30 125/72 10/05/23 00:30 104 H 21 97 10/05/23 00:20 109 H 23 96 10/05/23 00:20 131/82 10/05/23 00:10 125/51 L 10/05/23 00:10 109 H 22 98 10/05/23 00:00 103 H 20 98 10/05/23 00:00 113/93 10/04/23 23:50 99 H 22 95 10/04/23 23:50 121/64 10/04/23 23:40 101 H 21 97 10/04/23 23:40 121/59 L 10/04/23 23:30 106 H 26 H 96 10/04/23 23:30 127/71 10/04/23 23:28 102 H 10/04/23 23:20 134/76 10/04/23 23:20 108 H 22 97 10/04/23 23:10 107 H 20 93 10/04/23 23:10 130/69 10/04/23 23:00 106 H 18 95 10/04/23 23:00 125/66 10/04/23 22:50 101 H 21 97 10/04/23 22:50 119/67 10/04/23 22:40 103 H 22 95 10/04/23 22:40 116/62 10/04/23 22:30 112/65 10/04/23 22:30 96 H 20 96 10/04/23 22:20 97 H 21 98 10/04/23 22:20 110/60 10/04/23 22:10 98 H 21 94 10/04/23 22:10 106/59 L 10/04/23 22:00 106/61 10/04/23 22:00 103 H 21 94 10/04/23 21:50 113/61 10/04/23 21:50 106 H 21 97 10/04/23 21:40 114/64 10/04/23 21:40 103 H 22 97 10/04/23 21:30 107 H 18 98 10/04/23 21:30 120/61 10/04/23 21:20 105 H 21 100 10/04/23 21:20 117/70 10/04/23 21:10 102 H 21 100 10/04/23 21:10 117/66 10/04/23 21:00 134/65 10/04/23 21:00 117 H 24 98 10/04/23 20:50 112 H 23 98 10/04/23 20:50 120/74 10/04/23 20:40 111 H 22 95 10/04/23 20:40 131/72 10/04/23 20:30 140/68 10/04/23 20:30 111 H 22 100 Laboratory Results Laboratory Results - last 24 hr 10/04/23 10/04/23 10/04/23 08:52 11:40 15:47 WBC RBC Hgb Hct MCV MCH MCHC RDW Std Deviation RDW Coeff of Aysha Plt Count MPV Immature Gran % (Auto) Neut % (Auto) Lymph % (Auto) [place] % (Auto) Eos % (Auto) Baso % (Auto) Neut # (Auto) Lymph # (Auto) [place] # (Auto) Eos # (Auto) Baso # (Auto) Immature Gran # (Auto) Sodium Potassium Chloride Carbon Dioxide Anion Gap BUN Creatinine Est Cr Clr Drug Dosing Est GFR ( Amer) Est GFR (Non-Af Amer) BUN/Creatinine Ratio Glucose POC Glucose 147 H 204 H Calcium Phosphorus Magnesium B-Natriuretic Peptide 2355 H 10/04/23 10/05/23 10/05/23 21:16 04:33 07:22 WBC 8.21 RBC 3.57 L Hgb 10.2 L Hct 31.5 L MCV 88.2 MCH 28.6 MCHC 32.4 RDW Std Deviation 50.8 H RDW Coeff of Aysha 15.6 H Plt Count 281 MPV 9.9 Immature Gran % (Auto) 0.9 Neut % (Auto) 80.3 Lymph % (Auto) 5.8 [place] % (Auto) 12.9 Eos % (Auto) 0.0 Baso % (Auto) 0.1 Neut # (Auto) 6.59 H Lymph # (Auto) 0.48 L [place] # (Auto) 1.06 H Eos # (Auto) 0.00 Baso # (Auto) 0.01 Immature Gran # (Auto) 0.07 Sodium 140 Potassium 3.5 Chloride 104 Carbon Dioxide 19 L Anion Gap 17 H BUN 95 H D Creatinine 5.12 H* D Est Cr Clr Drug Dosing 11.9 Est GFR ( Amer) 11.2 Est GFR (Non-Af Amer) 9.7 BUN/Creatinine Ratio 18.6 Glucose 153 H POC Glucose 169 H 160 H Calcium 10.7 H Phosphorus 6.0 H Magnesium 2.0 B-Natriuretic Peptide PG Care Time/CCT Total # of Minutes Spent Total Time Spent with Patient: Total time spent is greater than 50% in coordination of care (as documented) at patient's floor/unit and/or counseling patient: Coding Level of Care Code 98245 SUB INP/OBS CARE 3/50MIN Diagnoses End stage renal disease N18.6 Hypotension I95.9 Hypotension type: unspecified hypotension type High anion gap metabolic acidosis E87.29 COVID-19 U07.1 Atrial fibrillation with rapid ventricular response I48.91 (2) Hypotension Hypotension type: unspecified hypotension type Qualified Code(s): I95.9 - Hypotension, unspecified
[2023-10-05] MEDS ORDERED: HEPARIN SOD (PORCINE) 1000 UNIT/ML IV SCH (08:30)
[2023-10-05] MEDS: METOPROLOL TARTRATE 25 MG TAB PO SCH ×3 (09:53→20:08)
[2023-10-05] MEDS ORDERED: ENOXAPARIN INJ 40 MG/0.4 ML SYR SQ SCH (10:00)
--- NOTE | 2023-10-05 10:00 | Ultrasound Report ---
BILATERAL LOWER EXTREMITY VENOUS DOPPLER CLINICAL HISTORY: Right calf pain. COMPARISON STUDY: Bilateral lower extremity venous Doppler ultrasound May 02, 2007. TECHNIQUE: Sonography of the deep venous system of the bilateral lower extremities was performed. Co mpression and augmentation were evaluated. FINDINGS: The bilateral common femoral, superficial femoral and popliteal veins were compressible. A ugmentation was normal. Flow was shown within the deep calf vessels. There is a 4.2 x 4.2 x 2 cm oval -shaped complex abnormality within the left popliteal fossa. This was also present prior ultrasound a ppears decreased in size since that exam. This contains no color flow. IMPRESSION: 1. No evidence of deep venous thrombus within the bilateral lower extremities. 2. 4.2 x 4.2 x 2 cm complex abnormality within the left popliteal fossa. When correlating with prior ultrasound of May 12, 2007, this favors a complex popliteal cyst. ACT 112: Negative or not required by law. Electronically signed by: Carlos Hernández M.D. 10/05/2023 9:59 AM
[2023-10-05] MEDS ORDERED: 0.2 MICRON FILTER SET 1 EACH IV ONE (10:15)
[2023-10-05] MEDS: PANTOprazole 40 MG TAB PO SCH (10:31)
--- NOTE | 2023-10-05 10:55 | XRay Report ---
XR chest 1V portable CLINICAL HISTORY: Congestive heart failure. Respiratory failure. COMPARISON STUDY: Chest radiograph October 03, 2023. FINDINGS: Tip of the right jugular dual lumen catheter projects over the mid SVC. There is no pneumot horax. Small right and trace left pleural effusions are noted. Right basilar opacity has increased. L eft basilar opacity is again noted. There is persistent mild pulmonary edema. Cardiomediastinal silho uette is stable. IMPRESSION: 1. Cardiomegaly with persistent pulmonary edema. 2. Small right and trace left pleural effusions. 3. Increase in bibasilar opacities, right greater than left. The findings could reflect atelectasis o r pneumonia. ACT 112: Negative or not required by law. Electronically signed by: Carlos Hernández M.D. 10/05/2023 10:53 AM
[2023-10-05] MEDS: HEPARIN SOD 5,000 UNIT/0.5 ML VIAL SC SCH ×2 (11:16→19:57)
--- NOTE | 2023-10-05 11:35 | Electrocardiogram Report ---
Test Reason : Blood Pressure : / mmHG Vent. Rate : 138 BPM Atrial Rate : 159 BPM P-R Int : 000 ms QRS Dur : 132 ms QT Int : 294 ms P-R-T Axes : 000 -37 122 degrees QTc Int : 445 ms Atrial fibrillation with rapid ventricular response Left axis deviation Non-specific intra-ventricular conduction delay Old Septal infarct (cited on or before 03-OCT-2023) T wave abnormality, consider lateral ischemia Abnormal ECG When compared with ECG of 03-OCT-2023 12:54, HR has increased by 43 bpm Otherwise no significant change Confirmed by Cameron Miranda ([id number]) on 10/05/2023 11:35:15 AM Referred By: REFERRED SELF Confirmed By:Cameron Miranda
--- NOTE | 2023-10-05 12:07 | Pharmacy Report ---
Pharmacy Glycemic Short Note 2 - Date of Service October 05, 2023 - Glycemic Short BSG Results (Last 24 hours): 10/04/23 10/04/23 10/05/23 15:47 21:16 04:33 Glucose 153 H POC Glucose 204 H 169 H 10/05/23 10/05/23 07:22 11:19 Glucose POC Glucose 160 H 183 H OUTPATIENT ANTIDIABETIC REGIMEN: * Basaglar 27 units SQ HS * insulin regular 10-11 units SQ at breakfast, 5-6u @ lunch, 13-22u @ dinner ASSESSMENT: 10/05: * BSGs [phone]/dL the last 24h. Received 10 units of basal and 7 units of bolus insulin yesterday. * Tolerating some PO intake today, continues on dex 6mg IV daily. * Slightly elevated fasting BSG today, will titrate Lantus to BID per scale depending on BSG. No change to Novolog. 10/04: * Pt is an 83 year old male with a history of DM2 admitted with ESRD requiring emergent HD, AF/RVR, and COVID (+). Pharmacy consulted to assist with glycemic management. * BSGs [phone]/dL. Received 15 units of basal and 1 unit of bolus insulin yesterday. * Receiving dexamethasone 6mg IV daily, ordered a diet however taking minimal PO, and phenylephrine running at a low rate. iHD planned for today. * Will plan for another reduced dose HS basal scale for tonight depending on BSG given acceptable BSGs the last 24h. Will likely need titrated once improved PO intake. Novolog moderate stress scale ACHS. PLAN FOR INPATIENT GLYCEMIC CONTROL: * Hold outpatient oral diabetes medications * Basal insulin * Lantus scale (0//15) BID depending on BSG * Bolus insulin * NovoLog per scale ACHS or Q6hrs while NPO * Goal Range: Low 110 mg/dL - High 140 mg/dL * Correction Factor: 25 mg/dL/unit * Nutritional / Prandial insulin per carb ratio of 1 unit per 8 grams CHO consumed
--- NOTE | 2023-10-05 12:23 | Billing Data ---
Date of Service October 05, 2023 Coding Level of Care Code 58060 SUB INP/OBS CARE
[2023-10-05 13:23] LABS: HBSAG NON-REACTIVE (NON-REACTIVE); Hepatitis B Surface Ab, Quant <5 mIU/mL (> OR = 10)
--- NOTE | 2023-10-05 13:37 | Cardiology Progress Note ---
Date of Service October 05, 2023 Assessment & Plan (1) Atrial fibrillation with rapid ventricular response: (2) CAD (coronary artery disease): (3) Elevated troponin: (4) Cardiomyopathy: (5) CKD (chronic kidney disease), stage V: Plan Given potential for continued hemodynamic and rhythm lability robin-dialysis, would continue IV amiodarone throughout today. If he remains in sinus for over 24 hours, would shift to oral amiodarone and reduce/eliminate metoprolol as able (depending upon heart rate). Currently sinus rhythm, so anticoagulation does not need to be addressed immediately. Given markedly elevated creatinine and age greater than 80, could consider reduced dose apixaban (2.5 mg twice daily) for chronic anticoagulation, to be initiated later in his hospital course. As previously noted, very limited area of potential revascularization weighs against the risk of CABG and no percutaneous options available given the occluded vessels, therefore medical management of his coronary artery disease. Echocardiogram shows low normal systolic function (improved). Dr. Garcia will be rounding over the weekend and is aware of Mr. Gaviria's recent clinical course. Upon discharge, cardiology follow-up with Dr. Arrington, the patient's primary evs attendant. Admission and Anticipated Discharge Date Admission Date: October 03, 2023 Subjective Patient had 2 episodes of recurrent atrial fibrillation with rapid ventricular response, each lasting about 90 minutes, over the past 24 hours. Has remained in sinus rhythm since last evening. Today will represent the third day of hemodialysis. BP normotensive off phenylephrine/on midodrine. Echocardiogram yesterday showed EF 50 to 55% with a minor wall motion abnorma lity, compared with 09/21/2023 study, mild improvement in LV systolic function, otherwise no significant change. Physical Exam Physical Exam: BP normotensive. Pulse 82 bpm and regular. Respirations 18. Full exam not performed (COVID-patient) Results & Data Vital Signs (Past 12 Hours) Vital Signs Temp Pulse Resp BP Pulse Ox O2 Del Method O2 Flow Rate 10/05/23 13:00 82 19 117/59 L 92 Nasal Cannula 5 10/05/23 12:00 81 19 122/67 93 Nasal Cannula 5 10/05/23 11:00 81 19 118/60 92 Oxymask 5 10/05/23 10:00 90 20 115/64 92 Oxymask 5 10/05/23 09:46 Nasal Cannula 10/05/23 09:00 94 H 16 91 Nasal Cannula 4 10/05/23 08:00 96 H 20 120/76 93 Nasal Cannula 4 10/05/23 07:30 97.9 F 10/05/23 07:30 Nasal Cannula 3 10/05/23 07:00 90 24 115/63 92 Nasal Cannula 2 10/05/23 06:10 88 20 94 10/05/23 06:10 120/70 10/05/23 06:00 116/64 10/05/23 06:00 90 20 94 10/05/23 05:50 123/69 10/05/23 05:50 87 23 93 10/05/23 05:42 89 116/64 10/05/23 05:40 103/77 10/05/23 05:40 137 H 21 90 10/05/23 05:30 127 H 23 95 10/05/23 05:30 98/72 L 10/05/23 05:27 136 H 104/69 10/05/23 05:20 143 H 20 92 10/05/23 05:20 104/69 10/05/23 05:10 148 H 22 92 10/05/23 05:10 114/88 10/05/23 05:00 115/72 10/05/23 05:00 148 H 25 H 92 10/05/23 04:50 98 H 23 93 10/05/23 04:50 124/70 10/05/23 04:40 104 H 23 90 10/05/23 04:40 123/59 L 10/05/23 04:31 131 H 17 10/05/23 04:31 105/84 10/05/23 04:20 132/67 10/05/23 04:20 98 H 21 95 10/05/23 04:10 100 H 21 86 L 10/05/23 04:10 136/66 10/05/23 04:00 104 H 24 98 10/05/23 04:00 134/73 10/05/23 03:50 97 H 24 96 10/05/23 03:50 124/87 10/05/23 03:40 100 H 23 100 10/05/23 03:40 129/77 10/05/23 03:30 107 H 20 97 10/05/23 03:30 128/80 10/05/23 03:20 107 H 20 95 10/05/23 03:20 134/70 10/05/23 03:10 101 H 16 99 10/05/23 03:10 129/63 10/05/23 03:00 131/65 10/05/23 03:00 105 H 18 99 10/05/23 02:50 107 H 20 99 10/05/23 02:50 133/80 10/05/23 02:40 132/66 10/05/23 02:40 105 H 19 98 10/05/23 02:30 102 H 18 94 10/05/23 02:30 127/73 10/05/23 02:20 108 H 19 99 10/05/23 02:20 133/80 10/05/23 02:10 103 H 16 97 10/05/23 02:10 128/67 10/05/23 02:00 100 H 20 96 10/05/23 02:00 120/72 10/05/23 01:50 148/92 H 10/05/23 01:50 94 10/05/23 01:40 96 10/05/23 01:40 115/68 PG Care Time/CCT Total # of Minutes Spent Total Time Spent with Patient: Total time spent is greater than 50% in coordination of care (as documented) at patient's floor/unit and/or counseling patient: Coding Level of Care Code 84891 SUB INP/OBS CARE 2/35MIN Diagnoses Atrial fibrillation with rapid ventricular response I48.91 CAD (coronary artery disease) I25.10 Elevated troponin R79.89 Cardiomyopathy I42.9 CKD (chronic kidney disease), stage V N18.5
--- NOTE | 2023-10-05 14:50 | Hospitalist Progress Note ---
Date of Service October 05, 2023 Assessment & Plan (1) Acute kidney injury superimposed on CKD: Plan: Nephrology consulted for emergent dialysis on admission. He has a temporary dialysis catheter in place now. Continue periodic hemodialysis for fluid management. Serial labs (2) High anion gap metabolic acidosis: Plan: Present on admission. He received sodium bicarbonate intravenously in the ED. Serial labs. (3) Hypotension: Plan: He is now off pressor support. Continue midodrine. (4) Atrial fibrillation with rapid ventricular response: Plan: Converted to normal sinus rhythm with amiodarone infusion. Telemetry. Appreciate cardiology consultation and recommendations. (5) COVID-19: Plan: Nasal swab positivity. Dexamethasone ordered by ICU. He remains in isolation (6) Pneumonia: Plan: Bibasilar opacity seen on chest x-ray. However, this may simply be atelectasis. He received cefepime in the ED. Will follow (7) Acute hypoxemic respiratory failure: Plan: Oxygen per nasal cannula to maintain saturation greater than 90%. Wean off as tolerated (8) Cardiomyopathy: Plan: Recent anterior wall [place] with known ischemic cardiomyopathy. Most recent echo revealed ejection fraction 40%. Medical management (9) Acute combined systolic and diastolic CHF, NYHA class 3: Plan: Continue hemodialysis per nephrology schedule. Serial chest x-ray. (10) Controlled type 2 diabetes mellitus with kidney complication, with long- term current use of insulin: Plan: ADA diet. Sliding scale coverage. Basal insulin if needed. 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 Tamsulosin on hold due to hypotension Plan To be determined Admission and Anticipated Discharge Date Admission Date: October 03, 2023 Subjective Alert and oriented to name and place. Repeat portable chest x-ray reveals evidence of congestive heart failure and bibasilar opacities. He is off pressor support. Cardiology entry noted. Fortunately, bilateral lower extremity venous Dopplers are negative for DVT. Review of Systems 2 Review of Systems: Constitutional-no fever or chills ENT-no blurred vision, no double vision, no epistaxis, no sore throat Respiratory-no cough, no wheezing, no shortness of breath Cardiac-no palpitations, no chest pain, no syncope GI-no nausea, vomiting, diarrhea, melena, hematochezia -no urinary retention, no urinary incontinence, no dysuria, no hematuria Musculoskeletal-no joint pain, no muscle tenderness Skin-no bruising, no rashes, no pruritus Neuro-no isolated weakness, no paresthesia. Generalized weakness Psych-no depression, no anxiety Physical Exam 2 Physical Exam: General-lethargic. Nonverbal. No fever. HEENT-head atraumatic and normocephalic, pupils equal and reactive to light, extraocular muscles intact Neck-no lymphadenopathy or thyromegaly, trachea midline Chest-diminished breath sounds anteriorly. No wheezing. i Cardiac-regular rhythm at this time with controlled rate. Normal S1 and S2 Abdomen-normal bowel sounds, nontender, no hepatosplenomegaly Extremities-1+ pitting edema bilateral lower extremities below the knees Neuro-generalized weakness. No focal deficits Psych-flat affect Results & Data Results & Data Vital Signs (Past 12 Hours) Vital Signs Temp Pulse Resp BP Pulse Ox O2 Del Method O2 Flow Rate 10/05/23 13:00 82 19 117/59 L 92 Nasal Cannula 5 10/05/23 12:00 81 19 122/67 93 Nasal Cannula 5 10/05/23 11:00 81 19 118/60 92 Oxymask 5 10/05/23 10:00 90 20 115/64 92 Oxymask 5 10/05/23 09:46 Nasal Cannula 10/05/23 09:00 94 H 16 91 Nasal Cannula 4 10/05/23 08:00 96 H 20 120/76 93 Nasal Cannula 4 10/05/23 07:30 36.6 C 10/05/23 07:30 Nasal Cannula 3 10/05/23 07:00 90 24 115/63 92 Nasal Cannula 2 10/05/23 06:10 88 20 94 10/05/23 06:10 120/70 10/05/23 06:00 116/64 10/05/23 06:00 90 20 94 10/05/23 05:50 123/69 10/05/23 05:50 87 23 93 10/05/23 05:42 89 116/64 10/05/23 05:40 103/77 10/05/23 05:40 137 H 21 90 10/05/23 05:30 127 H 23 95 10/05/23 05:30 98/72 L 10/05/23 05:27 136 H 104/69 10/05/23 05:20 143 H 20 92 10/05/23 05:20 104/69 10/05/23 05:10 148 H 22 92 10/05/23 05:10 114/88 10/05/23 05:00 115/72 10/05/23 05:00 148 H 25 H 92 10/05/23 04:50 98 H 23 93 10/05/23 04:50 124/70 10/05/23 04:40 104 H 23 90 10/05/23 04:40 123/59 L 10/05/23 04:31 131 H 17 10/05/23 04:31 105/84 10/05/23 04:20 132/67 10/05/23 04:20 98 H 21 95 10/05/23 04:10 100 H 21 86 L 10/05/23 04:10 136/66 10/05/23 04:00 104 H 24 98 10/05/23 04:00 134/73 10/05/23 03:50 97 H 24 96 10/05/23 03:50 124/87 10/05/23 03:40 100 H 23 100 10/05/23 03:40 129/77 10/05/23 03:30 107 H 20 97 10/05/23 03:30 128/80 10/05/23 03:20 107 H 20 95 10/05/23 03:20 134/70 10/05/23 03:10 101 H 16 99 10/05/23 03:10 129/63 10/05/23 03:00 131/65 10/05/23 03:00 105 H 18 99 10/05/23 02:50 107 H 20 99 10/05/23 02:50 133/80 Laboratory Results 10/05/23 04:33 10/05/23 04:33 PG Care Time/CCT Total # of Minutes Spent Total Time Spent with Patient: Total time spent is greater than 50% in coordination of care (as documented) at patient's floor/unit and/or counseling patient: Coding Level of Care Code 09797 SUB INP/OBS CARE 3/50MIN Diagnoses Acute kidney injury superimposed on CKD N17.9; N18.9 High anion gap metabolic acidosis E87.29 Hypotension I95.9 Hypotension type: unspecified hypotension type Atrial fibrillation with rapid ventricular response I48.91 COVID-19 U07.1 Pneumonia J18.9 Acute hypoxemic respiratory failure J96.01 Cardiomyopathy I42.9 Acute combined systolic and diastolic CHF, 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 Controlled type 2 diabetes mellitus with kidney complication, with long-term current use of insulin E11.29; Z79.4 BPH with obstruction/lower urinary tract symptoms N40.1; N13.8 (3) Hypotension Hypotension type: unspecified hypotension type Qualified Code(s): I95.9 - Hypotension, unspecified
--- NOTE | 2023-10-05 16:37 | Procedure Note ---
Procedure Note Date of Service October 05, 2023 Note Hemodialysis replacement Procedure: Replacement of HD cath Provider: Akash Rosario MD Indication: Need for HD access Anesthesia: None Site: Right IJ Indication: The patient is currently undergoing hemodialysis. Flows are not a dequate through the current catheter and despite manipulation, we have been immobile she should have adequate flow. It was requested that the catheter be replaced. Risks and benefits were discussed with the patient of rewiring the current catheter. He is agreeable to proceed The current catheter was extensively cleansed using chlorhexidine. This includes all the ports. Once they were thoroughly cleansed and Betadine chlorhexidine, sterile field was established. Using full barrier precautions, I again we cleansed the catheter with chlorhexidine on the sterile field. I was able to flush the blue port of the catheter and withdraw blood without difficulty. A new 20 cm HD cath was flushed with sterile saline and prepped. A wire was passed through the blue port of the existing hemodialysis catheter and the catheter removed leaving the wire in place. The 20 cm HD cath was then loaded on the wire and passed through the same tunnel as the prior catheter without difficulty. The wire was removed. I was able to aspirate blood and flush all ports without difficulty. The catheter was secured with 2 Vicryl sutures and a sterile dressing was applied. Chest x-ray was not performed as this was rewiring and not a new stick. Catheter is appropriate for hemodialysis use at this time. Estimated blood loss: 5 mL Coding CPT Codes Tubes, Drains, and Vasc Access - Tubes, Drains, and Vasc Access: [id number] Insertion of cannula for hemodialysis ([id number]) [facility] [place]Charges) Tubes, Drains, and Vasc Access Procedure 1: Tubes, Drains, and Vasc Access: [id number] Insertion of cannula for hemodialysis
[2023-10-05] MEDS: HEPARIN SOD (PORCINE) 1000 UNIT/ML IV SCH (18:22)
[2023-10-05] MEDS: SENNA 8.6 MG TAB PO SCH (19:58)
[2023-10-06 05:43] LABS: Basophils # (auto) 0.01 K/uL (0.00-0.20); Basophils % (auto) 0.1 %; Hemoglobin 10.8 g/dl (14.0-18.0); Immature Granulocytes # (auto) 0.07 K/uL (0.01-0.20); Lymphocytes # (auto) 0.53 K/uL (1.20-3.40); Lymphocytes % (auto) 7.3 %; Mean Corpuscular Hemoglobin 28.6 pg (25.0-34.0); Mean Corpuscular Hgb Conc 31.8 g/dL (32.0-36.0); Mean Corpuscular Volume 89.9 fL (80.0-100.0); Mean Platelet Volume 9.6 fL (9.4-12.4); Monocytes # (auto) 0.85 K/uL (0.11-0.59); Monocytes % (auto) 11.7 %; Neutrophils # (auto) 5.79 K/uL (1.40-6.50); Neutrophils % (auto) 79.9 %; Platelet Count 263 K/uL (130-400); RDW Coefficient of Variation 15.4 % (11.5-14.5); RDW Standard Deviation 50.6 fL (36.4-46.3); Red Blood Count 3.78 M/uL (4.70-6.10); White Blood Count 7.25 K/ul (4.8-10.8)
[2023-10-06 06:01] LABS: BUN Creatinine Ratio 14.3 (10-20); Calcium 10.9 mg/dl (8.6-10.3); Creatinine Clr Calc Pharmacy 15.8 ml/min; Est GFR (African American) 15.5 ml/min; Est GFR (Non-African American) 13.4 ml/min; Magnesium 1.9 mg/dl (1.7-2.4); Phosphorus 5.5 mg/dl (2.5-4.9); Potassium 3.5 mmol/L (3.5-5.1)
[2023-10-06] MEDS: LEVOTHYROXINE SODIUM 50 MCG TABLET PO SCH (06:03)
[2023-10-06] MEDS: AMIODARONE / D5W 360 MG/200 ML BAG IV SCH ×2 (07:52→20:00)
[2023-10-06] MEDS: INSULIN ASPART PER UNIT CHARGE SC SCH ×4 (08:25→19:58)
[2023-10-06] MEDS: MIDODRINE HCL 10 MG TAB PO SCH ×3 (08:26→16:27)
[2023-10-06] MEDS: LANTUS PER UNIT CHARGE SC SCH ×2 (08:26→19:59)
[2023-10-06] MEDS: ATORVASTATIN 40 MG TAB PO SCH (08:27)
[2023-10-06] MEDS: CLOPIDOGREL BISULFATE 75 MG TAB PO SCH (08:27)
[2023-10-06] MEDS: ASPIRIN 81 MG ECTAB PO SCH (08:27)
[2023-10-06] MEDS: dexAMETHasone 6 MG in SYRINGE 0 ML IV SCH (08:28)
[2023-10-06] MEDS: DOCUSATE SODIUM 100 MG CAP PO SCH ×2 (08:28→20:00)
[2023-10-06] MEDS: FLUTICASONE PROPIONATE NA SPR 16 GM BTL NAE SCH ×2 (08:29→20:02)
[2023-10-06] MEDS: HEPARIN SOD 5,000 UNIT/0.5 ML VIAL SC SCH ×2 (08:29→20:01)
[2023-10-06] MEDS: FERROUS SULFATE 325 MG TAB PO SCH (08:29)
[2023-10-06] MEDS: METOPROLOL TARTRATE 25 MG TAB PO SCH ×3 (08:30→20:00)
[2023-10-06] MEDS: NEPHROCAPS PO SCH (08:30)
[2023-10-06] MEDS: PANTOprazole 40 MG TAB PO SCH (08:31)
--- NOTE | 2023-10-06 10:33 | Nephrology Progress Note ---
Date of Service October 06, 2023 Assessment & Plan (1) End stage renal disease: (2) Anemia: (3) COVID-19: (4) Uremia: (5) Atrial fibrillation with rapid ventricular response: Plan 83 y o M with ESKD, failed L RC AVF ( created on 12/14) , L BC AVF created 07/03/23 but requires transposition. He was hospitalized at [facility] 09/18/23- 09/22/23 due to NSTEMI, Cardiac cath on 09/19/23 showing severe obstructive coronary disease involving the LAD and left circumflex systems and evidence of recent acute coronary event involving the mid LAD. Medical management recommended. Kidney function was relatively stable after cardiac cath at that time with baseline creatinine around 5-5.6. He was discharged to [facility] for rehab and lab showed progressive worsening of renal function with multiple critical electrolyte abnormality and uremic symptoms. He was scheduled to have tunneled dialysis catheter on 10/04/2023 as an outpatient to start on dialysis. However prior to the procedure he was noted to be hypotensive with systolic blood pressure in 80s and new onset atrial fibrillation with RVR. He was also tested positive for COVID. Surgery was canceled and he was admitted for further evaluation. Initially was on pressor which was eventually discontinued as blood pressure improved only on midodrine. He had a temporary dialysis catheter and started on dialysis on 10/04/2023 and had 3 [id number] dialysis. BP improved. Respiratory status acceptable. Mild hypercalcemia noted. Blood and urine cultures negative. --As clinically improved, no bacteremia, will consult vascular surgery for tunneled dialysis catheter Sunday. --Continue to monitor over the weekend, no need for dialysis at this time, will plan for dialysis Sunday --Dose medications for eGFR less than 10, left arm nephrology precaution. Admission and Anticipated Discharge Date Admission Date: October 03, 2023 Subjective Davin was seen and evaluated this morning. He reports feeling better after 3 HD. Denies SOB, cough. Appetite slightly improved. BP improved. Review of Systems Review of Systems: All systems reviewed & are unremarkable except as noted in Subjective Physical Exam Constitutional: WD/WN, vitals as above Respiratory: no respiratory distress Auscultation: + diminished lung sounds Cardiovascular: Rate/Rhythm: regular rate and regular rhythm Heart Sounds: normal S1 and normal S2 Extremities: + AV fistula (left BC AVF with bruit.); no edema Neurologic: no focal motor deficits Psychiatric: Orientation: alert and oriented x 3 Affect: euthymic affect Results & Data Vital Signs (Past 12 Hours) Vital Signs Pulse Resp BP Pulse Ox Pulse Ox O2 Del Method O2 Del Method 10/06/23 10:00 84 24 114/59 L 93 Nasal Cannula 10/06/23 09:00 87 21 133/66 94 Nasal Cannula 10/06/23 08:00 85 20 119/61 88 L Nasal Cannula 10/06/23 07:15 Nasal Cannula 10/06/23 07:15 94 Nasal Cannula 10/06/23 07:00 87 22 119/71 91 Nasal Cannula 10/06/23 05:00 119/98 10/06/23 05:00 86 22 94 10/06/23 04:00 130/70 10/06/23 04:00 82 22 94 10/06/23 03:00 83 22 94 10/06/23 03:00 120/72 10/06/23 02:00 118/63 10/06/23 02:00 79 23 94 10/06/23 01:00 80 21 96 10/06/23 01:00 120/67 10/06/23 00:00 133/71 10/06/23 00:00 81 23 94 10/06/23 00:00 78 10/05/23 23:00 122/64 10/05/23 23:00 81 19 93 O2 Flow Rate O2 Flow Rate 10/06/23 10:00 3 10/06/23 09:00 3 10/06/23 08:00 3 10/06/23 07:15 3 10/06/23 07:15 3 10/06/23 07:00 3 10/06/23 05:00 10/06/23 05:00 10/06/23 04:00 10/06/23 04:00 10/06/23 03:00 10/06/23 03:00 10/06/23 02:00 10/06/23 02:00 10/06/23 01:00 10/06/23 01:00 10/06/23 00:00 10/06/23 00:00 10/06/23 00:00 10/05/23 23:00 10/05/23 23:00 PG Care Time/CCT Total # of Minutes Spent Total Time Spent with Patient: Total time spent is greater than 50% in coordination of care (as documented) at patient's floor/unit and/or counseling patient: Coding Level of Care Code 36868 SUB INP/OBS CARE 2/35MIN Diagnoses End stage renal disease N18.6 Anemia due to stage 3 chronic kidney disease N18.3; D63.1 Anemia type: due to chronic kidney disease Chronic kidney disease stage: stage 3 (moderate) COVID-19 U07.1 Uremia N19 Atrial fibrillation with rapid ventricular response I48.91 (2) Anemia Anemia type: due to chronic kidney disease Chronic kidney disease stage: stage 3 (moderate) Qualified Code(s): N18.3 - Chronic kidney disease, stage 3 (moderate); D63.1 - Anemia in chronic kidney disease
--- NOTE | 2023-10-06 15:03 | Hospitalist Progress Note ---
Date of Service October 06, 2023 Assessment & Plan (1) Acute kidney injury superimposed on CKD: Plan: Nephrology consult and recommendations appreciated. He is now receiving hemodialysis. He has a temporary dialysis catheter in place. Repeat portable chest x-ray again tomorrow, October 07. Serial labs (2) High anion gap metabolic acidosis: Plan: Present on admission. He received sodium bicarbonate intravenously in the ED. Serial labs. (3) Hypotension: Plan: He is now off pressor support. Continue midodrine. (4) Atrial fibrillation with rapid ventricular response: Plan: Initially converted to normal sinus rhythm with amiodarone infusion but now is back in atrial fibrillation with a controlled rate. 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 Telemetry. Appreciate cardiology consultation and recommendations. (5) COVID-19: Plan: Nasal swab positivity. Asymptomatic (6) Pneumonia: Plan: Bibasilar opacity seen on chest x-ray. However, this appears to be a combination of fluid overload and atelectasis. Actual pneumonia infection ruled out (7) Acute hypoxemic respiratory failure: Plan: Oxygen per nasal cannula to maintain saturation greater than 90%. Wean off as tolerated (8) Cardiomyopathy: Plan: Recent anterior wall ID with known ischemic cardiomyopathy. Most recent echo revealed ejection fraction 40%. Medical management (9) Acute combined systolic and diastolic CHF, NYHA class 3: Plan: Continue hemodialysis per nephrology schedule. Serial chest x-ray. (10) Controlled type 2 diabetes mellitus with kidney complication, with long- term current use of insulin: Plan: ADA diet. Sliding scale coverage. Basal insulin if needed. 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 Tamsulosin on hold due to hypotension Plan To be determined. OT and PT assessments requested. Likely will need placement at the time of discharge this week Admission and Anticipated Discharge Date Admission Date: October 03, 2023 Subjective Alert and oriented. Good spirits. He is off pressor support. 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 He remains on amiodarone infusion. OT and PT assessments have been requested. Will repeat portable chest x-ray again tomorrow, October 07. He continues to receive hemodialysis per nephrology. He remains on oxygen at 3 L/min. Review of Systems 2 Review of Systems: Constitutional-no fever or chills ENT-no blurred vision, no double vision, no epistaxis, no sore throat Respiratory-no cough, no wheezing, no shortness of breath Cardiac-no palpitations, no chest pain, no syncope GI-no nausea, vomiting, diarrhea, melena, hematochezia -no urinary retention, no urinary incontinence, no dysuria, no hematuria Musculoskeletal-no joint pain, no muscle tenderness Skin-no bruising, no rashes, no pruritus Neuro-no isolated weakness, no paresthesia. Generalized weakness Psych-no depression, no anxiety Physical Exam 2 Physical Exam: General-lethargic. Nonverbal. No fever. HEENT-head atraumatic and normocephalic, pupils equal and reactive to light, extraocular muscles intact Neck-no lymphadenopathy or thyromegaly, trachea midline Chest-diminished breath sounds anteriorly. No wheezing. i Cardiac-regular rhythm at this time with controlled rate. Normal S1 and S2 Abdomen-normal bowel sounds, nontender, no hepatosplenomegaly Extremities-1+ pitting edema bilateral lower extremities below the knees Neuro-generalized weakness. No focal deficits Psych-flat affect Results & Data Results & Data Vital Signs (Past 12 Hours) Vital Signs Temp Pulse Resp BP Pulse Ox Pulse Ox O2 Del Method 10/06/23 12:00 83 21 109/69 91 Nasal Cannula 10/06/23 11:00 89 25 H 125/70 96 Nasal Cannula 10/06/23 11:00 36.4 C L 10/06/23 10:00 84 24 114/59 L 93 Nasal Cannula 10/06/23 09:00 87 21 133/66 94 Nasal Cannula 10/06/23 08:00 85 20 119/61 88 L Nasal Cannula 10/06/23 07:15 Nasal Cannula 10/06/23 07:15 94 10/06/23 07:00 36.5 C 10/06/23 07:00 87 22 119/71 91 Nasal Cannula 10/06/23 05:00 119/98 10/06/23 05:00 86 22 94 10/06/23 04:00 130/70 10/06/23 04:00 82 22 94 10/06/23 03:00 83 22 94 10/06/23 03:00 120/72 O2 Del Method O2 Flow Rate O2 Flow Rate 10/06/23 12:00 3 10/06/23 11:00 3 10/06/23 11:00 10/06/23 10:00 3 10/06/23 09:00 3 10/06/23 08:00 3 10/06/23 07:15 3 10/06/23 07:15 Nasal Cannula 3 10/06/23 07:00 10/06/23 07:00 3 10/06/23 05:00 10/06/23 05:00 10/06/23 04:00 10/06/23 04:00 10/06/23 03:00 10/06/23 03:00 Laboratory Results 10/06/23 05:19 10/06/23 05:19 PG Care Time/CCT Total # of Minutes Spent Total Time Spent with Patient: Total time spent is greater than 50% in coordination of care (as documented) at patient's floor/unit and/or counseling patient: Coding Level of Care Code 06460 SUB INP/OBS CARE 3/50MIN Diagnoses Acute kidney injury superimposed on CKD N17.9; N18.9 High anion gap metabolic acidosis E87.29 Hypotension I95.9 Hypotension type: unspecified hypotension type Atrial fibrillation with rapid ventricular response I48.91 COVID-19 U07.1 Pneumonia J18.9 Acute hypoxemic respiratory failure J96.01 Cardiomyopathy I42.9 Acute combined systolic and diastolic CHF, 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 Controlled type 2 diabetes mellitus with kidney complication, with long-term current use of insulin E11.29; Z79.4 BPH with obstruction/lower urinary tract symptoms N40.1; N13.8 (3) Hypotension Hypotension type: unspecified hypotension type Qualified Code(s): I95.9 - Hypotension, unspecified
[2023-10-06] MEDS: SENNA 8.6 MG TAB PO SCH (20:00)
[2023-10-06] MEDS: traMADol HCL 50 MG TABLET PO PRN (20:01)
[2023-10-07] MEDS: AMIODARONE / D5W 360 MG/200 ML BAG IV SCH ×2 (05:27→16:24)
[2023-10-07] MEDS: LEVOTHYROXINE SODIUM 50 MCG TABLET PO SCH (05:27)
[2023-10-07 05:30] LABS: Basophils # (auto) 0.01 K/uL (0.00-0.20); Basophils % (auto) 0.1 %; Eosinophils # (auto) 0.01 K/uL (0.00-0.50); Eosinophils % (auto) 0.1 %; Hemoglobin 10.7 g/dl (14.0-18.0); Immature Granulocytes # (auto) 0.08 K/uL (0.01-0.20); Lymphocytes # (auto) 0.57 K/uL (1.20-3.40); Lymphocytes % (auto) 7.4 %; Mean Corpuscular Hemoglobin 28.7 pg (25.0-34.0); Mean Corpuscular Hgb Conc 32.4 g/dL (32.0-36.0); Mean Corpuscular Volume 88.5 fL (80.0-100.0); Mean Platelet Volume 10.1 fL (9.4-12.4); Monocytes # (auto) 0.65 K/uL (0.11-0.59); Monocytes % (auto) 8.4 %; Neutrophils # (auto) 6.38 K/uL (1.40-6.50); Platelet Count 254 K/uL (130-400); RDW Coefficient of Variation 15.3 % (11.5-14.5); RDW Standard Deviation 49.2 fL (36.4-46.3); Red Blood Count 3.73 M/uL (4.70-6.10)
[2023-10-07 05:52] LABS: BUN Creatinine Ratio 14.9 (10-20); Calcium 11.3 mg/dl (8.6-10.3); Est GFR (African American) 11.3 ml/min; Est GFR (Non-African American) 9.7 ml/min; Potassium 3.4 mmol/L (3.5-5.1)
--- NOTE | 2023-10-07 07:12 | XRay Report ---
SINGLE VIEW CHEST CLINICAL HISTORY: Congestive heart failure. FINDINGS: An AP, portable, upright chest radiograph is compared to study dated 10/05/2023. A right int ernal jugular central venous catheter is unchanged in position. The heart is enlarged. There is pulm onary vascular congestion. There is bibasilar airspace consolidation. Small pleural effusions are not ed. No pneumothorax is seen. The skeletal structures are osteopenic. The bony thorax is grossly intac t. Arthritic change is seen in the shoulders. IMPRESSION: 1. Cardiomegaly with pulmonary vascular congestion. This is similar to previous. 2. Small pleural effusions with bibasilar consolidation, also unchanged. ACT 112: Negative or not required by law. Electronically signed by: Dez Munoz M.D. 10/07/2023 7:11 AM
[2023-10-07] MEDS: INSULIN ASPART PER UNIT CHARGE SC SCH ×4 (07:43→20:18)
[2023-10-07] MEDS: LANTUS PER UNIT CHARGE SC SCH ×2 (07:44→20:19)
[2023-10-07] MEDS: MIDODRINE HCL 10 MG TAB PO SCH (08:15)
[2023-10-07] MEDS ORDERED: POTASSIUM CHLORIDE CRTAB 20 MEQ TABCR PO ONE (08:16)
[2023-10-07] MEDS: ASPIRIN 81 MG ECTAB PO SCH (08:30)
[2023-10-07] MEDS: ATORVASTATIN 40 MG TAB PO SCH (08:30)
[2023-10-07] MEDS: CLOPIDOGREL BISULFATE 75 MG TAB PO SCH (08:31)
[2023-10-07] MEDS: DOCUSATE SODIUM 100 MG CAP PO SCH ×2 (08:31→20:17)
[2023-10-07] MEDS: FERROUS SULFATE 325 MG TAB PO SCH (08:32)
[2023-10-07] MEDS: HEPARIN SOD 5,000 UNIT/0.5 ML VIAL SC SCH ×2 (08:32→20:18)
[2023-10-07] MEDS: NEPHROCAPS PO SCH (08:33)
[2023-10-07] MEDS: PANTOprazole 40 MG TAB PO SCH (08:33)
[2023-10-07] MEDS: METOPROLOL TARTRATE 25 MG TAB PO SCH ×3 (08:33→20:18)
[2023-10-07] MEDS: FLUTICASONE PROPIONATE NA SPR 16 GM BTL NAE SCH ×2 (08:36→20:19)
--- NOTE | 2023-10-07 10:34 | Nephrology Progress Note ---
Date of Service October 07, 2023 Assessment & Plan (1) End stage renal disease: (2) Anemia: (3) COVID-19: (4) Uremia: (5) Atrial fibrillation with rapid ventricular response: Plan 83 y o M with ESKD, failed L RC AVF ( created on 12/14) , L BC AVF created 07/03/23 but requires transposition. He was hospitalized at [facility] 09/18/23- 09/22/23 due to NSTEMI, Cardiac cath on 09/19/23 showing severe obstructive coronary disease involving the LAD and left circumflex systems and evidence of recent acute coronary event involving the mid LAD. Medical management recommended. Kidney function was relatively stable after cardiac cath at that time with baseline creatinine around 5-5.6. He was discharged to [facility] for rehab and lab showed progressive worsening of renal function with multiple critical electrolyte abnormality and uremic symptoms. He was scheduled to have tunneled dialysis catheter on 10/04/2023 as an outpatient to start on dialysis. However prior to the procedure he was noted to be hypotensive with systolic blood pressure in 80s and new onset atrial fibrillation with RVR. He was also tested positive for COVID. Surgery was canceled and he was admitted for further evaluation. Initially was on pressor which was eventually discontinued as blood pressure improved only on midodrine. He had a temporary dialysis catheter and started on dialysis on 10/04/2023 and had 3 [id number]-[id number] dialysis. BP improved. Respiratory status acceptable. Mild hypercalcemia. --consult vascular surgery for tunneled dialysis catheter Sunday. --Continue to monitor over the weekend, no need for dialysis at this time, will plan for dialysis Sunday --Dose medications for eGFR less than 10, left arm nephrology precaution. --Start on Renvela 1 tab 3 times daily with meals. Check PTH, if calcium remains elevated with high PTH, will start on Sensipar. Admission and Anticipated Discharge Date Admission Date: October 03, 2023 Subjective Davin has been overall doing well, no overnight events. Blood pressure has been stable, off of midodrine. Potassium is slightly low at 3.4 and was replaced this morning. Remain somewhat confused but overall clinically otherwise stable. Results & Data Vital Signs (Past 12 Hours) Vital Signs Temp Pulse BP Pulse Ox Pulse Ox O2 Del Method O2 Del Method 10/07/23 08:00 Nasal Cannula 10/07/23 08:00 94 Nasal Cannula 10/07/23 07:21 80 135/63 94 Nasal Cannula 10/07/23 07:21 36.8 C 10/07/23 05:00 72 90 10/07/23 05:00 144/69 H 10/07/23 04:01 126/61 10/07/23 04:01 72 91 10/07/23 04:00 77 90 10/07/23 03:00 122/62 10/07/23 03:00 68 10/07/23 02:00 65 88 L 10/07/23 02:00 125/61 10/07/23 01:00 78 10/07/23 01:00 116/63 10/07/23 00:00 132/65 10/07/23 00:00 66 92 10/06/23 23:00 114/70 10/06/23 23:00 63 O2 Flow Rate O2 Flow Rate 10/07/23 08:00 2 10/07/23 08:00 2 10/07/23 07:21 2 10/07/23 07:21 10/07/23 05:00 10/07/23 05:00 10/07/23 04:01 10/07/23 04:01 10/07/23 04:00 10/07/23 03:00 10/07/23 03:00 10/07/23 02:00 10/07/23 02:00 10/07/23 01:00 10/07/23 01:00 10/07/23 00:00 10/07/23 00:00 10/06/23 23:00 10/06/23 23:00 PG Care Time/CCT Total # of Minutes Spent Total Time Spent with Patient: Total time spent is greater than 50% in coordination of care (as documented) at patient's floor/unit and/or counseling patient: Coding Level of Care Code 17219 SUB INP/OBS CARE 2/35MIN Diagnoses End stage renal disease N18.6 Anemia due to stage 3 chronic kidney disease N18.3; D63.1 Anemia type: due to chronic kidney disease Chronic kidney disease stage: stage 3 (moderate) COVID-19 U07.1 Uremia N19 Atrial fibrillation with rapid ventricular response I48.91 (2) Anemia Anemia type: due to chronic kidney disease Chronic kidney disease stage: stage 3 (moderate) Qualified Code(s): N18.3 - Chronic kidney disease, stage 3 (moderate); D63.1 - Anemia in chronic kidney disease
[2023-10-07] MEDS: SEVELAMER HCL 800 MG TABLET PO SCH ×2 (11:47→16:24)
--- NOTE | 2023-10-07 12:55 | Hospitalist Progress Note ---
Date of Service October 07, 2023 Assessment & Plan (1) Acute kidney injury superimposed on CKD: Plan: Nephrology consult and recommendations appreciated. He is now receiving hemodialysis. He has a temporary dialysis catheter in place. Vascular surgery will be consulted tomorrow, October 08, for placement of tunneled dialysis catheter. Portable chest x-ray done today, October 07, looks better. Serial labs (2) High anion gap metabolic acidosis: Plan: Present on admission. He received sodium bicarbonate intravenously in the ED. Serial labs. (3) Hypotension: Plan: He is now off pressor support. Midodrine will be discontinued today, October 07, and we will see how he responds. (4) Atrial fibrillation with rapid ventricular response: Plan: Initially converted to normal sinus rhythm with amiodarone infusion but now is back in atrial fibrillation with a controlled rate. 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 Telemetry. Appreciate cardiology consultation and recommendations. (5) COVID-19: Plan: Nasal swab positivity. Asymptomatic. IV Decadron discontinued today, October 07 (6) Pneumonia: Plan: Bibasilar opacity seen on chest x-ray. However, this appears to be a combination of fluid overload and atelectasis. Actual pneumonia infection ruled out (7) Acute hypoxemic respiratory failure: Plan: Oxygen per nasal cannula to maintain saturation greater than 90%. Wean off as tolerated . He is only requiring 2 L of oxygen at this time (8) Cardiomyopathy: Plan: Recent anterior wall IL with known ischemic cardiomyopathy. Most recent echo revealed ejection fraction 40%. Medical management (9) Acute combined systolic and diastolic CHF, NYHA class 3: Plan: Continue hemodialysis per nephrology schedule. Serial chest x-ray. (10) Controlled type 2 diabetes mellitus with kidney complication, with long- term current use of insulin: Plan: ADA diet. Sliding scale coverage. Basal insulin if needed. 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 Tamsulosin on hold due to hypotension Plan It appears he will need temporary rehab placement at the time of discharge. Hopefully, this week Admission and Anticipated Discharge Date Admission Date: October 03, 2023 Subjective Alert and oriented. He is complaining of a dry cough but no significant physical findings. Will discontinue midodrine and see how he does without it. Blood pressure is 135/63. Oral potassium replacement ordered. Decadron will be discontinued. He tested positive for COVID on admission but is currently asymptomatic. He is aware he will need temporary rehabilitation at the time of discharge from [facility]. Nephrology entry noted. Vascular surgery will be consulted tomorrow, October 08, for placement of tunneled dialysis catheter. Review of Systems 2 Review of Systems: Constitutional-no fever or chills ENT-no blurred vision, no double vision, no epistaxis, no sore throat Respiratory-no cough, no wheezing, no shortness of breath Cardiac-no palpitations, no chest pain, no syncope GI-no nausea, vomiting, diarrhea, melena, hematochezia -no urinary retention, no urinary incontinence, no dysuria, no hematuria Musculoskeletal-no joint pain, no muscle tenderness Skin-no bruising, no rashes, no pruritus Neuro-no isolated weakness, no paresthesia. Generalized weakness Psych-no depression, no anxiety Physical Exam 2 Physical Exam: General-lethargic. Nonverbal. No fever. HEENT-head atraumatic and normocephalic, pupils equal and reactive to light, extraocular muscles intact Neck-no lymphadenopathy or thyromegaly, trachea midline Chest-diminished breath sounds anteriorly. No wheezing. i Cardiac-regular rhythm at this time with controlled rate. Normal S1 and S2 Abdomen-normal bowel sounds, nontender, no hepatosplenomegaly Extremities-1+ pitting edema bilateral lower extremities below the knees Neuro-generalized weakness. No focal deficits Psych-flat affect Results & Data Results & Data Vital Signs (Past 12 Hours) Vital Signs Temp Pulse Resp BP Pulse Ox Pulse Ox O2 Del Method 10/07/23 12:00 73 19 119/63 94 Nasal Cannula 10/07/23 12:00 36.8 C 10/07/23 08:00 Nasal Cannula 10/07/23 08:00 94 10/07/23 07:21 80 135/63 94 Nasal Cannula 10/07/23 07:21 36.8 C 10/07/23 05:00 72 90 10/07/23 05:00 144/69 H 10/07/23 04:01 126/61 10/07/23 04:01 72 91 10/07/23 04:00 77 90 10/07/23 03:00 122/62 10/07/23 03:00 68 10/07/23 02:00 65 88 L 10/07/23 02:00 125/61 10/07/23 01:00 78 10/07/23 01:00 116/63 O2 Del Method O2 Flow Rate O2 Flow Rate 10/07/23 12:00 2 10/07/23 12:00 10/07/23 08:00 2 10/07/23 08:00 Nasal Cannula 2 10/07/23 07:21 2 10/07/23 07:21 10/07/23 05:00 10/07/23 05:00 10/07/23 04:01 10/07/23 04:01 10/07/23 04:00 10/07/23 03:00 10/07/23 03:00 10/07/23 02:00 10/07/23 02:00 10/07/23 01:00 10/07/23 01:00 Laboratory Results 10/07/23 05:16 10/07/23 05:16 PG Care Time/CCT Total # of Minutes Spent Total Time Spent with Patient: Total time spent is greater than 50% in coordination of care (as documented) at patient's floor/unit and/or counseling patient: Coding Level of Care Code 60640 SUB INP/OBS CARE 3/50MIN Diagnoses Acute kidney injury superimposed on CKD N17.9; N18.9 High anion gap metabolic acidosis E87.29 Hypotension I95.9 Hypotension type: unspecified hypotension type Atrial fibrillation with rapid ventricular response I48.91 COVID-19 U07.1 Pneumonia J18.9 Acute hypoxemic respiratory failure J96.01 Cardiomyopathy I42.9 Acute combined systolic and diastolic CHF, 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 Controlled type 2 diabetes mellitus with kidney complication, with long-term current use of insulin E11.29; Z79.4 BPH with obstruction/lower urinary tract symptoms N40.1; N13.8 (3) Hypotension Hypotension type: unspecified hypotension type Qualified Code(s): I95.9 - Hypotension, unspecified
[2023-10-07] MEDS: guaiFENesin SUGAR FREE 100 MG/5 ML UDC PO PRN (16:24)
[2023-10-07] MEDS: SENNA 8.6 MG TAB PO SCH (20:17)
[2023-10-07] MEDS: traMADol HCL 50 MG TABLET PO PRN (20:26)
--- NOTE | 2023-10-07 20:47 | Electrocardiogram Report ---
Test Reason : Blood Pressure : / mmHG Vent. Rate : 083 BPM Atrial Rate : 083 BPM P-R Int : 200 ms QRS Dur : 132 ms QT Int : 432 ms P-R-T Axes : 061 -34 097 degrees QTc Int : 507 ms Sinus rhythm with marked sinus arrhythmia Left axis deviation Left ventricular hypertrophy with QRS widening and repolarization abnormality Cannot rule out Septal infarct (cited on or before 03-OCT-2023) Abnormal ECG When compared with ECG of 04-OCT-2023 19:18, Sinus rhythm has replaced Atrial fibrillation Vent. rate has decreased BY 55 BPM Confirmed by Floyd Abad ([id number]) on 10/07/2023 8:46:44 PM Referred By: REFERRED SELF Confirmed By:Floyd Abad
[2023-10-08 04:17] LABS: Basophils # (auto) 0.01 K/uL (0.00-0.20); Basophils % (auto) 0.1 %; Eosinophils # (auto) 0.11 K/uL (0.00-0.50); Eosinophils % (auto) 1.2 %; Hematocrit (blood only) 38.8 % (42.0-52.0); Hemoglobin 12.4 g/dl (14.0-18.0); Immature Granulocytes # (auto) 0.07 K/uL (0.01-0.20); Immature Granulocytes % (auto) 0.8 %; Lymphocytes # (auto) 0.52 K/uL (1.20-3.40); Lymphocytes % (auto) 5.8 %; Mean Corpuscular Hemoglobin 28.8 pg (25.0-34.0); Mean Platelet Volume 10.1 fL (9.4-12.4); Monocytes # (auto) 0.46 K/uL (0.11-0.59); Monocytes % (auto) 5.1 %; Neutrophils # (auto) 7.86 K/uL (1.40-6.50); Platelet Count 252 K/uL (130-400); RDW Coefficient of Variation 15.3 % (11.5-14.5); RDW Standard Deviation 50.4 fL (36.4-46.3); Red Blood Count 4.31 M/uL (4.70-6.10); White Blood Count 9.03 K/ul (4.8-10.8)
[2023-10-08 04:34] LABS: Albumin Level 3.6 gm/dl (3.4-5.0); BUN Creatinine Ratio 14.3 (10-20); Calcium 11.3 mg/dl (8.6-10.3); Creatinine Clr Calc Pharmacy 10.1 ml/min; Est GFR (African American) 9.1 ml/min; Est GFR (Non-African American) 7.9 ml/min; Phosphorus 6.1 mg/dl (2.5-4.9)
[2023-10-08] MEDS: AMIODARONE / D5W 360 MG/200 ML BAG IV SCH (05:39)
[2023-10-08] MEDS: LEVOTHYROXINE SODIUM 50 MCG TABLET PO SCH (05:39)
[2023-10-08] MEDS: INSULIN ASPART PER UNIT CHARGE SC SCH ×4 (07:51→20:40)
[2023-10-08] MEDS: SEVELAMER HCL 800 MG TABLET PO SCH ×3 (07:52→17:06)
[2023-10-08] MEDS: HEPARIN SOD 5,000 UNIT/0.5 ML VIAL SC SCH (08:18)
[2023-10-08] MEDS: LANTUS PER UNIT CHARGE SC SCH ×2 (08:22→20:41)
--- NOTE | 2023-10-08 09:40 | Nephrology Progress Note ---
Date of Service October 08, 2023 Assessment & Plan (1) End stage renal disease: (2) Anemia: (3) COVID-19: (4) Uremia: (5) Atrial fibrillation with rapid ventricular response: Plan 83 y o M with ESKD, failed L RC AVF ( created on 12/14) , L BC AVF created 07/03/23 but requires transposition. He was hospitalized at [facility] 09/18/23- 09/22/23 due to NSTEMI, Cardiac cath on 09/19/23 showing severe obstructive coronary disease involving the LAD and left circumflex systems and evidence of recent acute coronary event involving the mid LAD. Medical management recommended. Kidney function was relatively stable after cardiac cath at that time with baseline creatinine around 5-5.6. He was discharged to [facility] for rehab and lab showed progressive worsening of renal function with multiple critical electrolyte abnormality and uremic symptoms. He was scheduled to have tunneled dialysis catheter on 10/04/2023 as an outpatient to start on dialysis. However prior to the procedure he was noted to be hypotensive with systolic blood pressure in 80s and new onset atrial fibrillation with RVR. He was also tested positive for COVID. Surgery was canceled and he was admitted for further evaluation. Initially was on pressor which was eventually discontinued as blood pressure improved only on midodrine. He had a temporary dialysis catheter and started on dialysis on 10/04/2023 and had 3 [id number] dialysis. BP improved. Respiratory status acceptable. Mild hypercalcemia. --ca staying stable although remain elevated, PTH is lower than before. Continue to monitor --Tolerating dialysis today, continue Sunday, Sunday, Sunday dialysis. Waiting for tunneled dialysis catheter. --Dose medications for eGFR less than 10, left arm nephrology precaution. -- on Renvela 1 tab 3 times daily with meals. Admission and Anticipated Discharge Date Admission Date: October 03, 2023 Subjective Davin was seen and evaluated this morning while getting dialysis. He reports feeling about the same, has some cough but no SOB. Appetite and po intake remains poor. BP improved. Review of Systems Review of Systems: All systems reviewed & are unremarkable except as noted in Subjective Physical Exam Constitutional: WD/WN, vitals as above + ill appearing; no acute distress Respiratory: no respiratory distress Auscultation: + diminished lung sounds Cardiovascular: Rate/Rhythm: regular rate and regular rhythm Heart Sounds: normal S1 and normal S2 Extremities: + vascular access device (rt IJ temporary HD catheter.) and + AV fistula (left BC AVF with bruit.); no edema Neurologic: no focal motor deficits Psychiatric: Orientation: alert and oriented x 3 Affect: euthymic affect Results & Data Vital Signs (Past 12 Hours) Vital Signs Temp Pulse Pulse Resp BP Pulse Ox O2 Del Method 10/08/23 09:00 124/68 10/08/23 08:39 36.8 C 88 120/68 10/08/23 08:30 36.8 C 98 H 10/08/23 07:21 89 18 138/71 98 Nasal Cannula 10/08/23 07:21 36.7 C 10/08/23 05:00 91 H 19 10/08/23 04:01 144/76 H 10/08/23 04:01 101 H 28 H 10/08/23 04:00 99 H 29 H 10/08/23 03:00 76 13 10/08/23 02:00 83 19 10/08/23 01:00 83 20 10/08/23 00:00 78 20 10/08/23 00:00 140/70 10/07/23 23:00 75 25 H 10/07/23 22:00 67 20 O2 Flow Rate 10/08/23 09:00 10/08/23 08:39 10/08/23 08:30 10/08/23 07:21 3 10/08/23 07:21 10/08/23 05:00 10/08/23 04:01 10/08/23 04:01 10/08/23 04:00 10/08/23 03:00 10/08/23 02:00 10/08/23 01:00 10/08/23 00:00 10/08/23 00:00 10/07/23 23:00 10/07/23 22:00 PG Care Time/CCT Total # of Minutes Spent Total Time Spent with Patient: Total time spent is greater than 50% in coordination of care (as documented) at patient's floor/unit and/or counseling patient: Coding Level of Care Code 60634 SUB INP/OBS CARE 2/35MIN Diagnoses End stage renal disease N18.6 Anemia due to stage 3 chronic kidney disease N18.3; D63.1 Anemia type: due to chronic kidney disease Chronic kidney disease stage: stage 3 (moderate) COVID-19 U07.1 Uremia N19 Atrial fibrillation with rapid ventricular response I48.91 (2) Anemia Anemia type: due to chronic kidney disease Chronic kidney disease stage: stage 3 (moderate) Qualified Code(s): N18.3 - Chronic kidney disease, stage 3 (moderate); D63.1 - Anemia in chronic kidney disease
--- NOTE | 2023-10-08 09:51 | Cardiology Progress Note ---
Date of Service October 08, 2023 Assessment & Plan (1) Atrial fibrillation with rapid ventricular response: Plan: -currently in sinus rhythm on intravenous amiodarone and oral metoprolol tartrate. -can convert amiodarone to p.o. dosing at 200 mg b.i.d. -consider long-term anticoagulation with Eliquis 2.5 mg b.i.d.. (2) CAD (coronary artery disease): Plan: -continue medical management of severe CAD. (3) Cardiomyopathy: Plan: -normal LVEF with distal anterior and apical wall motion abnormality. (4) CKD (chronic kidney disease), stage V: Plan: -management per Nephrology. Admission and Anticipated Discharge Date Admission Date: October 03, 2023 Subjective The patient is resting comfortably in bed and currently on hemodialysis. Physical Exam Physical Exam: In general this is a mildly obese white male in no acute distress. HEENT exam is negative. Neck is supple with full carotid of strokes. There no carotid bruits. No JVD. There is no thyromegaly. Cardiovascular exam reveals a regular rhythm with a 2/6 basal systolic ejection murmur. Lungs are clear without rales, rhonchi, or wheezes. Abdomen is benign without bruits. Extremities note a thrill and bruit the distal left upper extremity. One to 2+ pretibial edema bilaterally. Results & Data Vital Signs (Past 12 Hours) Vital Signs Temp Pulse Pulse Resp BP Pulse Ox O2 Del Method 10/08/23 09:30 92 H 116/72 10/08/23 09:00 124/68 10/08/23 08:39 36.8 C 88 120/68 10/08/23 08:30 36.8 C 98 H 10/08/23 07:21 89 18 138/71 98 Nasal Cannula 10/08/23 07:21 36.7 C 10/08/23 05:00 91 H 19 10/08/23 04:01 144/76 H 10/08/23 04:01 101 H 28 H 10/08/23 04:00 99 H 29 H 10/08/23 03:00 76 13 10/08/23 02:00 83 19 10/08/23 01:00 83 20 10/08/23 00:00 78 20 10/08/23 00:00 140/70 10/07/23 23:00 75 25 H 10/07/23 22:00 67 20 O2 Flow Rate 10/08/23 09:30 10/08/23 09:00 10/08/23 08:39 10/08/23 08:30 10/08/23 07:21 3 10/08/23 07:21 10/08/23 05:00 10/08/23 04:01 10/08/23 04:01 10/08/23 04:00 10/08/23 03:00 10/08/23 02:00 10/08/23 01:00 10/08/23 00:00 10/08/23 00:00 10/07/23 23:00 10/07/23 22:00 Diagnostic 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 PG Care Time/CCT Total # of Minutes Spent Total Time Spent with Patient: Total time spent is greater than 50% in coordination of care (as documented) at patient's floor/unit and/or counseling patient: Coding Level of Care Code 42572 SUB INP/OBS CARE 3/50MIN Diagnoses Atrial fibrillation with rapid ventricular response I48.91 CAD (coronary artery disease) I25.10 Cardiomyopathy I42.9 CKD (chronic kidney disease), stage V N18.5
[2023-10-08] MEDS: DOCUSATE SODIUM 100 MG CAP PO SCH ×2 (12:16→20:49)
[2023-10-08] MEDS: ASPIRIN 81 MG ECTAB PO SCH (12:16)
[2023-10-08] MEDS: CLOPIDOGREL BISULFATE 75 MG TAB PO SCH (12:16)
[2023-10-08] MEDS: ATORVASTATIN 40 MG TAB PO SCH (12:16)
[2023-10-08] MEDS: FERROUS SULFATE 325 MG TAB PO SCH (12:16)
[2023-10-08] MEDS: METOPROLOL TARTRATE 25 MG TAB PO SCH ×3 (12:17→20:49)
[2023-10-08] MEDS: NEPHROCAPS PO SCH (12:18)
[2023-10-08] MEDS: PANTOprazole 40 MG TAB PO SCH (12:18)
[2023-10-08] MEDS: FLUTICASONE PROPIONATE NA SPR 16 GM BTL NAE SCH ×2 (12:19→20:50)
--- NOTE | 2023-10-08 12:49 | Communication Note ---
Date of Service: October 08, 2023 Patient will need a permcath. At this point as long as the temp is working, would hold off on a permcath until he is out of isolation. Consideration should also be given to try and use his fistula.
--- NOTE | 2023-10-08 13:46 | Hospitalist Progress Note ---
Date of Service October 08, 2023 Assessment & Plan (1) Acute kidney injury superimposed on CKD: Plan: Nephrology consult and recommendations appreciated. He is now receiving hemodialysis. He has a temporary dialysis catheter in place. Vascular surgery was consulted for placement of tunneled dialysis catheter however due to his isolation status, surgery will be deferred (2) High anion gap metabolic acidosis: Plan: Present on admission. He received sodium bicarbonate intravenously in the ED. Serial labs. Now resolved (3) Hypotension: Plan: He is now off pressor support. Midodrine was discontinued Blood pressure holding up (4) Atrial fibrillation with rapid ventricular response: Plan: Initially converted to normal sinus rhythm with amiodarone infusion but now is back in atrial fibrillation with a controlled rate. 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 Telemetry. Appreciate cardiology consultation and recommendations. Amiodarone has been changed to oral, 200 mg twice daily continue metoprolol as well Started Eliquis 2.5 mg twice daily Stop aspirin so he will not be on triple anticoagulation (5) COVID-19: Plan: Nasal swab positivity. Asymptomatic. IV Decadron discontinued (6) Pneumonia: Plan: Bibasilar opacity seen on chest x-ray. However, this appears to be a combination of fluid overload and atelectasis. Actual pneumonia infection ruled out (7) Acute hypoxemic respiratory failure: Plan: Oxygen per nasal cannula to maintain saturation greater than 90%. Wean off as tolerated . He is only requiring 2 L of oxygen at this time (8) Cardiomyopathy: Plan: Recent anterior wall IA with known ischemic cardiomyopathy. Most recent echo revealed ejection fraction 40%. Medical management (9) Acute combined systolic and diastolic CHF, NYHA class 3: Plan: Continue hemodialysis per nephrology schedule. Serial chest x-ray. (10) Controlled type 2 diabetes mellitus with kidney complication, with long- term current use of insulin: Plan: ADA diet. Sliding scale coverage. Basal insulin if needed. 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 Tamsulosin on hold due to hypotension Plan It appears he will need temporary rehab placement at the time of discharge. Hopefully, this week Admission and Anticipated Discharge Date Admission Date: October 03, 2023 Subjective Patient seen and examined while undergoing hemodialysis this morning, denies shortness of breath or chest pain. Review of Systems Review of Systems: All systems reviewed are negative, apart from the ones contained in the history. Physical Exam Physical Exam: The patient is awake, alert and oriented 3, well developed and well nourished, normocephalic and atraumatic, lying in bed and in no acute distress. HEENT--PERRL, EOMI, mucous membranes and oropharynx mildly dry Neck--supple. No JVD. No bruits. Thyroid normal, trachea midline, no adenopathy. Heart--normal S1 and S2. No murmurs, rubs or gallops. Lungs--clear bilaterally, no respiratory distress, no accessory muscle use. Abdomen--normal bowel sounds and soft. Extremities--no cyanosis or clubbing. No edema. Dermatologic--normal skin turgor, normal color, no abnormal lymph nodes, no rash. Neurologic--cranial nerves II through XII grossly intact. Rheumatologic--normal range of motion. Psychiatric--normal affect. Results & Data Results & Data Vital Signs (Past 12 Hours) Vital Signs Temp Pulse Pulse Resp BP Pulse Ox O2 Del Method 10/08/23 12:00 100 H 20 108/75 98 Nasal Cannula 10/08/23 12:00 97.9 F 10/08/23 12:00 109 H 108/75 10/08/23 11:30 105 H 104/74 10/08/23 11:00 100 H 107/72 10/08/23 10:30 89 100/68 10/08/23 10:00 90 103/68 10/08/23 09:30 92 H 116/72 10/08/23 09:00 124/68 10/08/23 08:39 98.2 F 88 120/68 10/08/23 08:30 98.2 F 98 H 10/08/23 08:00 98 H 22 145/80 H 97 Nasal Cannula 10/08/23 07:21 89 18 138/71 98 Nasal Cannula 10/08/23 07:21 98.1 F 10/08/23 05:00 91 H 19 10/08/23 04:01 144/76 H 10/08/23 04:01 101 H 28 H 10/08/23 04:00 99 H 29 H 10/08/23 03:00 76 13 10/08/23 02:00 83 19 O2 Flow Rate 10/08/23 12:00 2 10/08/23 12:00 10/08/23 12:00 10/08/23 11:30 10/08/23 11:00 10/08/23 10:30 10/08/23 10:00 10/08/23 09:30 10/08/23 09:00 10/08/23 08:39 10/08/23 08:30 10/08/23 08:00 2 10/08/23 07:21 3 10/08/23 07:21 10/08/23 05:00 10/08/23 04:01 10/08/23 04:01 10/08/23 04:00 10/08/23 03:00 10/08/23 02:00 PG Care Time/CCT Total # of Minutes Spent Total Time Spent with Patient: Total time spent is greater than 50% in coordination of care (as documented) at patient's floor/unit and/or counseling patient: Coding Level of Care Code 93736 SUB INP/OBS CARE 2/35MIN Diagnoses Acute kidney injury superimposed on CKD N17.9; N18.9 High anion gap metabolic acidosis E87.29 Hypotension I95.9 Hypotension type: unspecified hypotension type Atrial fibrillation with rapid ventricular response I48.91 COVID-19 U07.1 Pneumonia J18.9 Acute hypoxemic respiratory failure J96.01 Cardiomyopathy I42.9 Acute combined systolic and diastolic CHF, 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 Controlled type 2 diabetes mellitus with kidney complication, with long-term current use of insulin E11.29; Z79.4 BPH with obstruction/lower urinary tract symptoms N40.1; N13.8 Time Spent (min) 35 (3) Hypotension Hypotension type: unspecified hypotension type Qualified Code(s): I95.9 - Hypotension, unspecified
[2023-10-08] MEDS: AMIODARONE 200 MG TAB PO SCH (17:06)
[2023-10-08] MEDS: APIXABAN 2.5 MG TAB PO SCH (20:48)
[2023-10-08] MEDS: SENNA 8.6 MG TAB PO SCH (20:51)
[2023-10-08] MEDS ORDERED: METOPROLOL TARTRATE 1 MG/ML VIAL IV ONE (23:48)
[2023-10-09] MEDS: LEVOTHYROXINE SODIUM 50 MCG TABLET PO SCH (05:10)
[2023-10-09 06:26] LABS: Basophils # (auto) 0.01 K/uL (0.00-0.20); Basophils % (auto) 0.1 %; Eosinophils # (auto) 0.04 K/uL (0.00-0.50); Eosinophils % (auto) 0.5 %; Hematocrit (blood only) 38.5 % (42.0-52.0); Hemoglobin 12.5 g/dl (14.0-18.0); Immature Granulocytes # (auto) 0.05 K/uL (0.01-0.20); Immature Granulocytes % (auto) 0.6 %; Lymphocytes # (auto) 0.57 K/uL (1.20-3.40); Lymphocytes % (auto) 7.1 %; Mean Corpuscular Hemoglobin 28.9 pg (25.0-34.0); Mean Corpuscular Hgb Conc 32.5 g/dL (32.0-36.0); Mean Corpuscular Volume 88.9 fL (80.0-100.0); Mean Platelet Volume 10.3 fL (9.4-12.4); Monocytes % (auto) 6.2 %; Neutrophils # (auto) 6.84 K/uL (1.40-6.50); Neutrophils % (auto) 85.5 %; Platelet Count 192 K/uL (130-400); RDW Standard Deviation 48.6 fL (36.4-46.3); Red Blood Count 4.33 M/uL (4.70-6.10); White Blood Count 8.01 K/ul (4.8-10.8)
[2023-10-09 06:57] LABS: BUN Creatinine Ratio 9.9 (10-20); Calcium 10.4 mg/dl (8.6-10.3); Creatinine Clr Calc Pharmacy 13.8 ml/min; Est GFR (African American) 13.4 ml/min; Est GFR (Non-African American) 11.5 ml/min; Potassium 3.4 mmol/L (3.5-5.1)
[2023-10-09] MEDS: NEPHROCAPS PO SCH (08:37)
[2023-10-09] MEDS: SEVELAMER HCL 800 MG TABLET PO SCH ×3 (08:37→17:38)
[2023-10-09] MEDS: AMIODARONE 200 MG TAB PO SCH ×2 (08:37→16:01)
[2023-10-09] MEDS: METOPROLOL TARTRATE 25 MG TAB PO SCH ×4 (08:37→21:07)
[2023-10-09] MEDS: APIXABAN 2.5 MG TAB PO SCH ×2 (08:37→21:05)
[2023-10-09] MEDS: FLUTICASONE PROPIONATE NA SPR 16 GM BTL NAE SCH ×2 (08:38→21:04)
[2023-10-09] MEDS: DOCUSATE SODIUM 100 MG CAP PO SCH ×2 (08:38→21:04)
[2023-10-09] MEDS: ATORVASTATIN 40 MG TAB PO SCH (08:38)
[2023-10-09] MEDS: FERROUS SULFATE 325 MG TAB PO SCH (08:38)
[2023-10-09] MEDS: PANTOprazole 40 MG TAB PO SCH (08:38)
[2023-10-09] MEDS: CLOPIDOGREL BISULFATE 75 MG TAB PO SCH (08:38)
[2023-10-09] MEDS: INSULIN ASPART PER UNIT CHARGE SC SCH ×4 (08:41→20:51)
[2023-10-09] MEDS: LANTUS PER UNIT CHARGE SC SCH ×2 (08:46→20:50)
--- NOTE | 2023-10-09 10:18 | Nephrology Progress Note ---
Date of Service October 09, 2023 Assessment & Plan (1) End stage renal disease: (2) Anemia: (3) COVID-19: (4) Uremia: (5) Atrial fibrillation with rapid ventricular response: Plan 83 y o M with ESKD, failed L RC AVF ( created on 12/14) , L BC AVF created 07/03/23 but requires transposition. He was hospitalized at [facility] 09/18/23- 09/22/23 due to NSTEMI, Cardiac cath on 09/19/23 showing severe obstructive coronary disease involving the LAD and left circumflex systems and evidence of recent acute coronary event involving the mid LAD. Medical management recommended. Kidney function was relatively stable after cardiac cath at that time with baseline creatinine around 5-5.6. He was discharged to [facility] for rehab and lab showed progressive worsening of renal function with multiple critical electrolyte abnormality and uremic symptoms. He was scheduled to have tunneled dialysis catheter on 10/04/2023 as an outpatient to start on dialysis. However prior to the procedure he was noted to be hypotensive with systolic blood pressure in 80s and new onset atrial fibrillation with RVR. He was also tested positive for COVID. Surgery was canceled and he was admitted for further evaluation. Initially was on pressor which was eventually discontinued as blood pressure improved only on midodrine. He had a temporary dialysis catheter and started on dialysis on 10/04/2023 and had 3 [id number] dialysis. BP improved. Respiratory status acceptable. Mild hypercalcemia, improved after HD --ca better although remain elevated, PTH is lower than before. Continue to monitor -- continue Sunday, Sunday, Sunday dialysis. TDC deferred due to isolation --Dose medications for eGFR less than 10, left arm nephrology precaution. -- on Renvela 1 tab 3 times daily with meals. Admission and Anticipated Discharge Date Admission Date: October 03, 2023 Subjective Davin was seen and evaluated this morning. He reports feeling about the same, denies SOB. Appetite and po intake remains poor. BP improved. UO low. Review of Systems Review of Systems: ROS was done and denied any symptoms. Physical Exam Constitutional: WD/WN, vitals as above + ill appearing; no acute distress Respiratory: no respiratory distress Auscultation: + diminished lung sounds Cardiovascular: Rate/Rhythm: regular rate and regular rhythm Heart Sounds: normal S1 and normal S2 Extremities: + vascular access device (rt IJ temporary HD catheter.) and + AV fistula (left BC AVF with bruit.); no edema Neurologic: no focal motor deficits Psychiatric: Orientation: alert and oriented x 3 Affect: euthymic affect Results & Data Vital Signs (Past 12 Hours) Vital Signs Temp Pulse Pulse Resp BP BP Pulse Ox 10/09/23 08:10 99 H 10/09/23 07:20 37.1 C 97 H 19 126/79 94 10/09/23 03:45 36.7 C 88 22 118/61 98 10/09/23 00:58 100/69 10/09/23 00:13 97 H 117/69 10/08/23 23:58 158 H 111/74 10/08/23 23:57 139 H 22 111/74 10/08/23 22:56 98 H O2 Del Method 10/09/23 08:10 10/09/23 07:20 Room Air 10/09/23 03:45 Room Air 10/09/23 00:58 10/09/23 00:13 10/08/23 23:58 10/08/23 23:57 10/08/23 22:56 PG Care Time/CCT Total # of Minutes Spent Total Time Spent with Patient: Total time spent is greater than 50% in coordination of care (as documented) at patient's floor/unit and/or counseling patient: Coding Level of Care Code 81148 SUB INP/OBS CARE 2/35MIN Diagnoses End stage renal disease N18.6 Anemia due to stage 3 chronic kidney disease N18.3; D63.1 Anemia type: due to chronic kidney disease Chronic kidney disease stage: stage 3 (moderate) COVID-19 U07.1 Uremia N19 Atrial fibrillation with rapid ventricular response I48.91 (2) Anemia Anemia type: due to chronic kidney disease Chronic kidney disease stage: stage 3 (moderate) Qualified Code(s): N18.3 - Chronic kidney disease, stage 3 (moderate); D63.1 - Anemia in chronic kidney disease
--- NOTE | 2023-10-09 11:33 | Hospitalist Progress Note ---
Date of Service October 09, 2023 Assessment & Plan (1) Acute kidney injury superimposed on CKD: Plan: Nephrology consult and recommendations appreciated. He is now receiving hemodialysis. He has a temporary dialysis catheter in place. Vascular surgery was consulted for placement of tunneled dialysis catheter however due to his isolation status, surgery will be deferred (2) High anion gap metabolic acidosis: Plan: Present on admission. He received sodium bicarbonate intravenously in the ED. Serial labs. Now resolved (3) Hypotension: Plan: He is now off pressor support. Midodrine was discontinued Blood pressure holding up (4) Atrial fibrillation with rapid ventricular response: Plan: Initially converted to normal sinus rhythm with amiodarone infusion but now is back in atrial fibrillation with a controlled rate. 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 Telemetry. Appreciate cardiology consultation and recommendations. Amiodarone has been changed to oral, 200 mg twice daily continue metoprolol as well Started Eliquis 2.5 mg twice daily Stop aspirin so he will not be on triple anticoagulation (5) COVID-19: Plan: Nasal swab positivity. Asymptomatic. IV Decadron discontinued (6) Pneumonia: Plan: Bibasilar opacity seen on chest x-ray. However, this appears to be a combination of fluid overload and atelectasis. Actual pneumonia infection ruled out (7) Acute hypoxemic respiratory failure: Plan: Oxygen per nasal cannula to maintain saturation greater than 90%. Wean off as tolerated . He is only requiring 2 L of oxygen at this time (8) Cardiomyopathy: Plan: Recent anterior wall WA with known ischemic cardiomyopathy. Most recent echo revealed ejection fraction 40%. Medical management (9) Acute combined systolic and diastolic CHF, NYHA class 3: Plan: Continue hemodialysis per nephrology schedule. Serial chest x-ray. (10) Controlled type 2 diabetes mellitus with kidney complication, with long- term current use of insulin: Plan: ADA diet. Sliding scale coverage. Basal insulin if needed. 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 Tamsulosin on hold due to hypotension Plan It appears he will need temporary rehab placement at the time of discharge. Hopefully, this week, he needs a dialysis bed Admission and Anticipated Discharge Date Admission Date: October 03, 2023 Subjective Patient seen and examined today, feels about the same, denies chest pain or shortness of breath. Plan is for him to go to [facility] for rehab, he needs a dialysis bed Review of Systems Review of Systems: All systems reviewed are negative, apart from the ones contained in the history. Physical Exam Physical Exam: The patient is awake, alert and oriented 3, well developed and well nourished, normocephalic and atraumatic, lying in bed and in no acute distress. HEENT--PERRL, EOMI, mucous membranes and oropharynx mildly dry Neck--supple. No JVD. No bruits. Thyroid normal, trachea midline, no adenopathy. Heart--normal S1 and S2. No murmurs, rubs or gallops. Lungs--clear bilaterally, no respiratory distress, no accessory muscle use. Abdomen--normal bowel sounds and soft. Extremities--no cyanosis or clubbing. No edema. Dermatologic--normal skin turgor, normal color, no abnormal lymph nodes, no rash. Neurologic--cranial nerves II through XII grossly intact. Rheumatologic--normal range of motion. Psychiatric--normal affect. Results & Data Results & Data Vital Signs (Past 12 Hours) Vital Signs Temp Pulse Pulse Resp BP BP Pulse Ox 10/09/23 08:10 99 H 10/09/23 07:20 98.8 F 97 H 19 126/79 94 10/09/23 03:45 98.1 F 88 22 118/61 98 10/09/23 00:58 100/69 10/09/23 00:13 97 H 117/69 10/08/23 23:58 158 H 111/74 10/08/23 23:57 139 H 22 111/74 O2 Del Method 10/09/23 08:10 10/09/23 07:20 Room Air 10/09/23 03:45 Room Air 10/09/23 00:58 10/09/23 00:13 10/08/23 23:58 10/08/23 23:57 PG Care Time/CCT Total # of Minutes Spent Total Time Spent with Patient: Total time spent is greater than 50% in coordination of care (as documented) at patient's floor/unit and/or counseling patient: Coding Level of Care Code 56754 SUB INP/OBS CARE 2/35MIN Diagnoses Acute kidney injury superimposed on CKD N17.9; N18.9 High anion gap metabolic acidosis E87.29 Hypotension I95.9 Hypotension type: unspecified hypotension type Atrial fibrillation with rapid ventricular response I48.91 COVID-19 U07.1 Pneumonia J18.9 Acute hypoxemic respiratory failure J96.01 Cardiomyopathy I42.9 Acute combined systolic and diastolic CHF, 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 Controlled type 2 diabetes mellitus with kidney complication, with long-term current use of insulin E11.29; Z79.4 BPH with obstruction/lower urinary tract symptoms N40.1; N13.8 Time Spent (min) 35 (3) Hypotension Hypotension type: unspecified hypotension type Qualified Code(s): I95.9 - Hypotension, unspecified
[2023-10-09] MEDS ORDERED: METOPROLOL TARTRATE 1 MG/ML VIAL IV STA (13:37)
[2023-10-09] MEDS ORDERED: AMIODARONE / D5W 150 MG/100 ML BAG IV STA (14:17)
[2023-10-09] MEDS ORDERED: STAT IV Infusion **Titration per Protocol STA (14:17)
[2023-10-09] MEDS ORDERED: AMIODARONE IV BOLUS & DRIP IV STA (14:17)
[2023-10-09] MEDS ORDERED: 0.2 MICRON FILTER SET 1 EACH IV STA (14:17)
[2023-10-09] MEDS ORDERED: AMIODARONE / D5W 360 MG/200 ML BAG IV ONE (14:28)
--- NOTE | 2023-10-09 15:18 | Cardiology Progress Note ---
Date of Service October 09, 2023 Assessment & Plan (1) Atrial fibrillation with rapid ventricular response: (2) CAD (coronary artery disease): (3) Hypotension: Plan ASSESSMENT/PLAN: 1. Paroxysmal atrial fibrillation with rapid ventricular response: Became hypotensive with IV metoprolol today as per hospitalist service. Recommend rhythm control as he was also hypotensive initially in A-fib with RVR. He has not been fully loaded with amiodarone. Increase amiodarone to 400 mg p.o. twice daily for an additional 4 days and then reduce to 200 mg twice daily or as directed by Dr. Arrington, his primary market development trainer. Could consider additional intravenous amiodarone if remains in A-fib with RVR for prolonged periods of time. Continue anticoagulation for stroke risk reduction, currently on Eliquis 2.5 mg twice daily. Monitor CBC. 2. Amiodarone therapy: Monitor TSH and transaminase levels periodically. 3. CAD: No angina. Continue high intensity statin therapy and beta-aimee if tolerated. 4. Hypotension: Titrating doses of beta-aimee will be difficult given mild hypotension, which may also complicate hemodialysis. Attempting to control rhythm with amiodarone as above. 5. Disposition: Dr. Arrington, his primary market development trainer will resume his cardiology care tomorrow. He was updated on today's events. Discussed plan with nursing staff and communicated with primary hospitalist, Dr. Barrett. Admission and Anticipated Discharge Date Admission Date: October 03, 2023 Subjective Called by nursing staff due to atrial fibrillation with rapid ventricular response. Patient was out of bed and noted to develop A-fib with RVR. IV metoprolol was given before the phone call and he became hypotensive with systolic pressure in the 80s transiently. She states that he was not symptomatic. IV amiodarone ordered at the time of the call and then presented to the bedside. By the time I walked to the bedside, he had converted to sinus rhythm IV amiodarone was not yet given. Hospitalist had increased metoprolol tartrate to 25 mg p.o. 3 times daily but his last dose of oral was 12.5 mg this morning. He denies chest pain, shortness of breath, palpitations, syncope, or near syncope. He was asymptomatic with the A-fib with RVR. He was alone in his hospital room. Physical Exam Physical Exam: Gen.: No acute distress. Alert. Answers questions appropriately. HEENT: Anicteric sclera. Neck: No JVD. Cardiac: Regular. Normal S1-S2. 2/6 systolic murmur. Pulmonary: Clear to auscultation bilaterally without wheezes, rales, or rhonchi. Abdomen: Soft, nontender, nondistended, with normoactive bowel sounds. No bruits noted. Extremities: 2+ radial pulses bilaterally. 2+ posterior tibialis pulses bilaterally. No edema or cyanosis. Results & Data Vital Signs (Past 12 Hours) Vital Signs Temp Pulse Pulse Resp BP BP Pulse Ox 10/09/23 14:18 88 10/09/23 14:18 87 94/64 L 10/09/23 13:45 145 H 126/70 10/09/23 13:20 145 H 10/09/23 11:38 37.1 C 91 H 19 96/67 L 94 10/09/23 08:30 10/09/23 08:10 99 H 10/09/23 07:20 37.1 C 97 H 19 126/79 94 10/09/23 03:45 36.7 C 88 22 118/61 98 O2 Del Method O2 Flow Rate 10/09/23 14:18 10/09/23 14:18 10/09/23 13:45 10/09/23 13:20 10/09/23 11:38 Nasal Cannula 3 10/09/23 08:30 Nasal Cannula 3 10/09/23 08:10 10/09/23 07:20 Room Air 10/09/23 03:45 Room Air Laboratory Results Laboratory Results - last 24 hr 10/08/23 10/08/23 10/09/23 16:06 19:21 06:08 WBC 8.01 RBC 4.33 L Hgb 12.5 L Hct 38.5 L MCV 88.9 MCH 28.9 MCHC 32.5 RDW Std Deviation 48.6 H RDW Coeff of Aysha 15.0 H Plt Count 192 MPV 10.3 Immature Gran % (Auto) 0.6 Neut % (Auto) 85.5 Lymph % (Auto) 7.1 Bee % (Auto) 6.2 Eos % (Auto) 0.5 Baso % (Auto) 0.1 Neut # (Auto) 6.84 H Lymph # (Auto) 0.57 L Bee # (Auto) 0.50 Eos # (Auto) 0.04 Baso # (Auto) 0.01 Immature Gran # (Auto) 0.05 Sodium 139 Potassium 3.4 L Chloride 101 Carbon Dioxide 24 Anion Gap 14 H BUN 44 H D Creatinine 4.43 H D Est Cr Clr Drug Dosing 13.8 Est GFR ( Amer) 13.4 Est GFR (Non-Af Amer) 11.5 BUN/Creatinine Ratio 9.9 L Glucose 128 H POC Glucose 148 H 157 H Calcium 10.4 H 10/09/23 10/09/23 07:16 11:36 WBC RBC Hgb Hct MCV MCH MCHC RDW Std Deviation RDW Coeff of Aysha Plt Count MPV Immature Gran % (Auto) Neut % (Auto) Lymph % (Auto) Bee % (Auto) Eos % (Auto) Baso % (Auto) Neut # (Auto) Lymph # (Auto) Bee # (Auto) Eos # (Auto) Baso # (Auto) Immature Gran # (Auto) Sodium Potassium Chloride Carbon Dioxide Anion Gap BUN Creatinine Est Cr Clr Drug Dosing Est GFR ( Amer) Est GFR (Non-Af Amer) BUN/Creatinine Ratio Glucose POC Glucose 109 H 159 H Calcium Diagnostic Findings Telemetry personally reviewed: Predominantly sinus rhythm. Had brief episode of atrial fibrillation on 10/08/2023 from 19 43-19 50 approximately. Had another episode from 2327 on 10/08/2023 before converting to sinus rhythm at 0009 on 10/09/2023. Today's episode of A-fib with RVR started at approximately 1320 and ended at 1418. ECG personally reviewed from 10/09/2023 at 0017: Sinus with first-degree AV block 98 bpm. LVH. IVCD. PAC. Labs reviewed from 10/09/2023 and notable for abnormal renal function, very mild hypokalemia, mild anemia. Nephrology and hospitalist note reviewed. Medications Administered Current Inpatient Medications Acetaminophen (Acetaminophen 500 Mg Tab) 500 mg PO Q4H PRN PRN Reason: back pain Stop: 11/03/23 15:30 Last Admin: 10/04/23 15:43 Dose: 500 mg Amiodarone HCl (Amiodarone 200 Mg Tab) 400 mg PO BIDM MADELYN Stop: 10/13/23 08:01 Amiodarone HCl (Amiodarone 200 Mg Tab) 200 mg PO BIDM MADELYN Stop: 11/12/23 16:59 Apixaban (Apixaban 2.5 Mg Tab) 2.5 mg PO BID [facility] Stop: 11/07/23 20:59 Last Admin: 10/09/23 08:37 Dose: 2.5 mg Atorvastatin Calcium (Atorvastatin 40 Mg Tab) 80 mg PO QAM [facility] Stop: 11/03/23 08:59 Last Admin: 10/09/23 08:38 Dose: 80 mg Bisacodyl (Bisacodyl 10 Mg Supp) 10 mg AK DAILY PRN PRN Reason: Constipation Stop: 11/02/23 16:57 Clopidogrel Bisulfate (Clopidogrel Bisulfate 75 Mg Tab) [facility] Stop: 11/03/23 08:59 Last Admin: 10/09/23 08:38 Dose: 75 mg Dextrose (Dextrose 50% 50 Ml Syringe) 25 - 50 ml IV UD PRN; Protocol PRN Reason: Hypoglycemia Protocol Stop: 11/02/23 18:42 Docusate Sodium (Docusate Sodium 100 Mg Cap) 100 mg PO BID [facility] Stop: 11/02/23 20:59 Last Admin: 10/09/23 08:38 Dose: 100 mg Ferrous Sulfate (Ferrous Sulfate 325 Mg Tab) 325 mg PO DAILY [facility] Stop: 11/05/23 08:59 Last Admin: 10/09/23 08:38 Dose: 325 mg Fluticasone Propionate (Fluticasone Propionate Na Spr 16 Gm Btl) 1 sprays LORA BID [facility] Stop: 11/02/23 20:59 Last Admin: 10/09/23 08:38 Dose: 1 sprays Glucagon (Glucagon For Inj 1 Mg Vial) 1 mg SQ UD PRN; Protocol PRN Reason: Hypoglycemia Protocol Stop: 11/02/23 18:42 Glucose (Glucose 10 Tab/Tube) 4 - 8 tab PO UD PRN; Protocol PRN Reason: Hypoglycemia Treatment Stop: 11/02/23 18:42 Glucose (Glucose 40% Gel 15 Gm Tube) 15 - 30 gm PO UD PRN; Protocol PRN Reason: Hypoglycemia Protocol Stop: 11/02/23 18:42 Guaifenesin (Guaifenesin Sugar Free 100 Mg/5 Ml Udc) 100 mg PO Q6H PRN PRN Reason: Cough Stop: 11/06/23 12:26 Last Admin: 10/07/23 16:24 Dose: 100 mg Insulin Aspart (Insulin Aspart Per Unit Charge) 0 units SC ACHS [facility] Stop: 11/02/23 18:42 Last Admin: 10/09/23 13:00 Dose: 1 units Insulin Glargine (Lantus Per Unit Charge) 0 units SC BID [facility]; Protocol Stop: 11/04/23 08:59 Last Admin: 10/09/23 08:46 Dose: Not Given Levothyroxine Sodium (Levothyroxine Sodium 50 Mcg Tablet) 50 mcg PO DAILYBB MADELYN Stop: 11/03/23 06:29 Last Admin: 10/09/23 05:10 Dose: 50 mcg Metoprolol Tartrate (Metoprolol Tartrate 25 Mg Tab) 25 mg PO TID [facility] Stop: 11/08/23 13:59 Last Admin: 10/09/23 14:18 Dose: Not Given Miscellaneous (Carbohydrates For Hypoglycemia ) 15 - 30 gm PO UD PRN PRN Reason: Hypoglycemia Protocol Stop: 11/02/23 18:42 Pantoprazole Sodium (Pantoprazole 40 Mg Tab) 40 mg PO DAILY [facility] Stop: 11/04/23 10:14 Last Admin: 10/09/23 08:38 Dose: 40 mg Sennosides (Senna 8.6 Mg Tab) 17.2 mg PO HS [facility] Stop: 11/02/23 20:59 Last Admin: 10/08/23 20:51 Dose: 17.2 mg Sevelamer HCl (Sevelamer Hcl 800 Mg Tablet) 800 mg PO TIDM [facility] Stop: 11/06/23 11:59 Last Admin: 10/09/23 12:52 Dose: 800 mg Tramadol HCl (Tramadol Hcl 50 Mg Tablet) 50 mg PO Q12H PRN PRN Reason: Back Pain Stop: 11/03/23 15:30 Last Admin: 10/07/23 20:26 Dose: 50 mg Vitamin B Complex/Folic Acid (Nephrocaps) 1 cap PO QAM [facility] Stop: 11/04/23 08:59 Last Admin: 10/09/23 08:37 Dose: 1 cap PG Care Time/CCT Total # of Minutes Spent Total Time Spent with Patient: Total time spent is greater than 50% in coordination of care (as documented) at patient's floor/unit and/or counseling patient: Coding Level of Care Code 18774 SUB INP/OBS CARE 3/50MIN Diagnoses Atrial fibrillation with rapid ventricular response I48.91 CAD (coronary artery disease) I25.10 Hypotension I95.9 Hypotension type: unspecified hypotension type (3) Hypotension Hypotension type: unspecified hypotension type Qualified Code(s): I95.9 - Hypotension, unspecified
[2023-10-09] MEDS ORDERED: AMIODARONE / D5W 360 MG/200 ML BAG IV SCH (20:30)
[2023-10-09] MEDS: SENNA 8.6 MG TAB PO SCH (21:04)
[2023-10-09] MEDS: traMADol HCL 50 MG TABLET PO PRN (21:05)
[2023-10-10] MEDS: LEVOTHYROXINE SODIUM 50 MCG TABLET PO SCH (06:02)
[2023-10-10] MEDS: INSULIN ASPART PER UNIT CHARGE SC SCH ×4 (09:04→20:51)
[2023-10-10] MEDS: guaiFENesin SUGAR FREE 100 MG/5 ML UDC PO PRN (09:16)
[2023-10-10] MEDS: ATORVASTATIN 40 MG TAB PO SCH (09:16)
[2023-10-10] MEDS: APIXABAN 2.5 MG TAB PO SCH ×2 (09:16→20:50)
[2023-10-10] MEDS: PANTOprazole 40 MG TAB PO SCH (09:17)
[2023-10-10] MEDS: FLUTICASONE PROPIONATE NA SPR 16 GM BTL NAE SCH ×2 (09:17→20:50)
[2023-10-10] MEDS: LANTUS PER UNIT CHARGE SC SCH ×2 (09:23→20:51)
--- NOTE | 2023-10-10 09:45 | Cardiology Progress Note ---
Date of Service October 10, 2023 Assessment & Plan (1) Atrial fibrillation with rapid ventricular response: Plan: -converted to sinus rhythm yesterday. -amiodarone as per Dr. Bermudez's note. -continue metoprolol tartrate and Eliquis. (2) CAD (coronary artery disease): Plan: -continue medical management severe CAD. (3) Hypotension: Plan: -resolved. Admission and Anticipated Discharge Date Admission Date: October 03, 2023 Subjective The patient is resting comfortably in bed without complaints of chest pain, dyspnea, or palpitations. Physical Exam Physical Exam: In general this is a mildly obese white male in no acute distress. HEENT exam is negative. Neck is supple with full carotid of strokes. There no carotid bruits. No JVD. There is no thyromegaly. Cardiovascular exam reveals a regular rhythm with a 2/6 basal systolic ejection murmur. Lungs are clear without rales, rhonchi, or wheezes. Abdomen is benign without bruits. Extremities note a thrill and bruit the distal left upper extremity. Trace pretibial edema bilaterally. Results & Data Vital Signs (Past 12 Hours) Vital Signs Temp Pulse Pulse Resp BP Pulse Ox O2 Del Method 10/10/23 08:03 36.5 C 87 22 113/78 94 Nasal Cannula 10/10/23 07:41 86 10/10/23 03:50 37.0 C 83 22 129/71 96 Room Air 10/09/23 22:36 36.6 C 83 20 108/69 98 Room Air 10/09/23 22:00 85 O2 Flow Rate 10/10/23 08:03 3 10/10/23 07:41 10/10/23 03:50 10/09/23 22:36 10/09/23 22:00 Diagnostic Findings ekg monitor tech notes sinus rhythm. No Afib since yesterday afternoon. PG Care Time/CCT Total # of Minutes Spent Total Time Spent with Patient: Total time spent is greater than 50% in coordination of care (as documented) at patient's floor/unit and/or counseling patient: Coding Level of Care Code 48278 SUB INP/OBS CARE 3/50MIN Diagnoses Atrial fibrillation with rapid ventricular response I48.91 CAD (coronary artery disease) I25.10 Hypotension I95.9 Hypotension type: unspecified hypotension type (3) Hypotension Hypotension type: unspecified hypotension type Qualified Code(s): I95.9 - Hypotension, unspecified
--- NOTE | 2023-10-10 10:37 | Nephrology Progress Note ---
Date of Service October 10, 2023 Assessment & Plan (1) End stage renal disease: (2) Anemia: (3) COVID-19: (4) Uremia: (5) Atrial fibrillation with rapid ventricular response: Plan 83 y o M with ESKD, failed L RC AVF ( created on 12/14) , L BC AVF created 07/03/23 but requires transposition. He was hospitalized at [facility] 09/18/23- 09/22/23 due to NSTEMI, Cardiac cath on 09/19/23 showing severe obstructive coronary disease involving the LAD and left circumflex systems and evidence of recent acute coronary event involving the mid LAD. Medical management recommended. Kidney function was relatively stable after cardiac cath at that time with baseline creatinine around 5-5.6. He was discharged to [facility] for rehab and lab showed progressive worsening of renal function with multiple critical electrolyte abnormality and uremic symptoms. He was scheduled to have tunneled dialysis catheter on 10/04/2023 as an outpatient to start on dialysis. However prior to the procedure he was noted to be hypotensive with systolic blood pressure in 80s and new onset atrial fibrillation with RVR. He was also tested positive for COVID. Surgery was canceled and he was admitted for further evaluation. Initially was on pressor which was eventually discontinued as blood pressure improved only on midodrine. He had a temporary dialysis catheter and started on dialysis on 10/04/2023 and had 3 [id number] dialysis. BP improved. Respiratory status acceptable. Mild hypercalcemia, improved after HD. Again had RVR and hypotension yesterday and started on Amiodarone 400 mg bid. --discontinue HD today as he became tachycardiac with HR >130 and persistent high arterial pressure. Change Robitussin to scheduled q6h. Will try to use the left BC AVF tomorrow with 17g needle. If difficulty cannulating will try using the IJ temporary catheter again tomorrow. -- continue Sunday, Sunday, Sunday dialysis. TDC deferred due to isolation which will end over the weekend and he can have TDC Sunday if AVF not usable yet. --Dose medications for eGFR less than 10, left arm nephrology precaution. --on Renvela 1 tab 3 times daily with meals. Admission and Anticipated Discharge Date Admission Date: October 03, 2023 Subjective Davin was seen and evaluated during HD this morning.Cough has been worse but denies SOB. Appetite and po intake remains poor. BP improved. UO low. Has been having high arterial pressure due to repeated cough. Review of Systems Review of Systems: ROS was done and denied any symptoms except mentioned above. Results & Data Vital Signs (Past 12 Hours) Vital Signs Temp Pulse Pulse Resp BP Pulse Ox O2 Del Method 10/10/23 08:03 36.5 C 87 22 113/78 94 Nasal Cannula 10/10/23 07:41 86 10/10/23 03:50 37.0 C 83 22 129/71 96 Room Air 10/09/23 22:36 36.6 C 83 20 108/69 98 Room Air O2 Flow Rate 10/10/23 08:03 3 10/10/23 07:41 10/10/23 03:50 10/09/23 22:36 PG Care Time/CCT Total # of Minutes Spent Total Time Spent with Patient: Total time spent is greater than 50% in coordination of care (as documented) at patient's floor/unit and/or counseling patient: Coding Level of Care Code 18695 SUB INP/OBS CARE 2/35MIN Diagnoses End stage renal disease N18.6 Anemia due to stage 3 chronic kidney disease N18.3; D63.1 Anemia type: due to chronic kidney disease Chronic kidney disease stage: stage 3 (moderate) COVID-19 U07.1 Uremia N19 Atrial fibrillation with rapid ventricular response I48.91 (2) Anemia Anemia type: due to chronic kidney disease Chronic kidney disease stage: stage 3 (moderate) Qualified Code(s): N18.3 - Chronic kidney disease, stage 3 (moderate); D63.1 - Anemia in chronic kidney disease
[2023-10-10] MEDS: AMIODARONE 200 MG TAB PO SCH ×2 (10:38→17:21)
[2023-10-10] MEDS: SEVELAMER HCL 800 MG TABLET PO SCH ×3 (10:39→17:22)
[2023-10-10] MEDS: METOPROLOL TARTRATE 25 MG TAB PO SCH ×3 (10:40→20:50)
[2023-10-10] MEDS: CLOPIDOGREL BISULFATE 75 MG TAB PO SCH (10:40)
[2023-10-10] MEDS: NEPHROCAPS PO SCH (10:40)
[2023-10-10] MEDS: FERROUS SULFATE 325 MG TAB PO SCH (11:23)
[2023-10-10] MEDS: guaiFENesin SUGAR FREE 100 MG/5 ML UDC PO SCH ×3 (11:24→21:01)
[2023-10-10] MEDS: DOCUSATE SODIUM 100 MG CAP PO SCH ×2 (11:24→20:50)
[2023-10-10 11:35] LABS: BUN Creatinine Ratio 9.7 (10-20); Calcium 9.8 mg/dl (8.6-10.3); Creatinine Clr Calc Pharmacy 12.4 ml/min; Est GFR (African American) 11.7 ml/min; Est GFR (Non-African American) 10.1 ml/min; Potassium 3.3 mmol/L (3.5-5.1)
--- NOTE | 2023-10-10 11:57 | Hospitalist Progress Note ---
Date of Service October 10, 2023 Assessment & Plan (1) Acute kidney injury superimposed on CKD: Plan: Nephrology consult and recommendations appreciated. He is now receiving hemodialysis. He has a temporary dialysis catheter in place. Vascular surgery was consulted for placement of tunneled dialysis catheter however due to his isolation status, surgery will be deferred till sometime next week probably Sunday (2) High anion gap metabolic acidosis: Plan: Present on admission. He received sodium bicarbonate intravenously in the ED. Serial labs. Now resolved (3) Hypotension: Plan: He is now off pressor support. Midodrine was discontinued Blood pressure holding up (4) Atrial fibrillation with rapid ventricular response: Plan: Initially converted to normal sinus rhythm with amiodarone infusion but now is back in atrial fibrillation with a controlled rate. 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 Telemetry. Appreciate cardiology consultation and recommendations. Amiodarone has been changed to oral, 200 mg twice daily continue metoprolol as well Started Eliquis 2.5 mg twice daily Stop aspirin so he will not be on triple anticoagulation (5) COVID-19: Plan: Nasal swab positivity. Asymptomatic. IV Decadron discontinued (6) Pneumonia: Plan: Bibasilar opacity seen on chest x-ray. However, this appears to be a combination of fluid overload and atelectasis. Actual pneumonia infection ruled out (7) Acute hypoxemic respiratory failure: Plan: Oxygen per nasal cannula to maintain saturation greater than 90%. Wean off as tolerated . He is only requiring 2 L of oxygen at this time (8) Cardiomyopathy: Plan: Recent anterior wall IN with known ischemic cardiomyopathy. Most recent echo revealed ejection fraction 40%. Medical management (9) Acute combined systolic and diastolic CHF, NYHA class 3: Plan: Continue hemodialysis per nephrology schedule. Serial chest x-ray. (10) Controlled type 2 diabetes mellitus with kidney complication, with long- term current use of insulin: Plan: ADA diet. Sliding scale coverage. Basal insulin if needed. 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 Tamsulosin on hold due to hypotension Plan It appears he will need temporary rehab placement at the time of discharge. Hopefully, this week, he needs a dialysis bed Admission and Anticipated Discharge Date Admission Date: October 03, 2023 Subjective Patient seen and examined, no new complaints today sitting quietly, was undergoing hemodialysis Review of Systems Review of Systems: All systems reviewed are negative, apart from the ones contained in the history. Physical Exam Physical Exam: The patient is awake, alert and oriented 3, well developed and well nourished, normocephalic and atraumatic, lying in bed and in no acute distress. HEENT--PERRL, EOMI, mucous membranes and oropharynx mildly dry Neck--supple. No JVD. No bruits. Thyroid normal, trachea midline, no adenopathy. Heart--normal S1 and S2. No murmurs, rubs or gallops. Lungs--clear bilaterally, no respiratory distress, no accessory muscle use. Abdomen--normal bowel sounds and soft. Extremities--no cyanosis or clubbing. No edema. Dermatologic--normal skin turgor, normal color, no abnormal lymph nodes, no rash. Neurologic--cranial nerves II through XII grossly intact. Rheumatologic--normal range of motion. Psychiatric--normal affect. Results & Data Results & Data Vital Signs (Past 12 Hours) Vital Signs Temp Pulse Pulse Resp BP BP Pulse Ox 10/10/23 11:35 97.5 F L 89 17 103/63 97 10/10/23 09:00 98.1 F 87 111/68 10/10/23 08:45 98.1 F 86 10/10/23 08:03 97.7 F 87 22 113/78 94 10/10/23 08:00 10/10/23 07:41 86 10/10/23 03:50 98.6 F 83 22 129/71 96 O2 Del Method O2 Flow Rate 10/10/23 11:35 Nasal Cannula 4 10/10/23 09:00 10/10/23 08:45 10/10/23 08:03 Nasal Cannula 3 10/10/23 08:00 Nasal Cannula 3 10/10/23 07:41 10/10/23 03:50 Room Air PG Care Time/CCT Total # of Minutes Spent Total Time Spent with Patient: Total time spent is greater than 50% in coordination of care (as documented) at patient's floor/unit and/or counseling patient: Coding Level of Care Code 88834 SUB INP/OBS CARE 2/35MIN Diagnoses Acute kidney injury superimposed on CKD N17.9; N18.9 High anion gap metabolic acidosis E87.29 Hypotension I95.9 Hypotension type: unspecified hypotension type Atrial fibrillation with rapid ventricular response I48.91 COVID-19 U07.1 Pneumonia J18.9 Acute hypoxemic respiratory failure J96.01 Cardiomyopathy I42.9 Acute combined systolic and diastolic CHF, 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 Controlled type 2 diabetes mellitus with kidney complication, with long-term current use of insulin E11.29; Z79.4 BPH with obstruction/lower urinary tract symptoms N40.1; N13.8 Time Spent (min) 35 (3) Hypotension Hypotension type: unspecified hypotension type Qualified Code(s): I95.9 - Hypotension, unspecified
--- NOTE | 2023-10-10 13:07 | Electrocardiogram Report ---
Test Reason : Blood Pressure : / mmHG Vent. Rate : 098 BPM Atrial Rate : 098 BPM P-R Int : 216 ms QRS Dur : 130 ms QT Int : 410 ms P-R-T Axes : 112 -35 101 degrees QTc Int : 523 ms Sinus rhythm with 1st degree A-V block Premature atrial complexes Left axis deviation Left ventricular hypertrophy with QRS widening and repolarization abnormality Non-specific intra-ventricular conduction block Cannot rule out Septal infarct (cited on or before 03-OCT-2023) Abnormal ECG When compared with ECG of 06-OCT-2023 11:01, No significant change was found Reconfirmed by Edgar Bermudez ([id number]) on 10/10/2023 1:07:37 PM Referred By: REFERRED SELF Confirmed By:Edgar Bermudez
[2023-10-10] MEDS: SENNA 8.6 MG TAB PO SCH (20:49)
[2023-10-11] MEDS: traMADol HCL 50 MG TABLET PO PRN ×2 (00:06→19:41)
[2023-10-11] MEDS: LEVOTHYROXINE SODIUM 50 MCG TABLET PO SCH (05:53)
[2023-10-11] MEDS: guaiFENesin SUGAR FREE 100 MG/5 ML UDC PO SCH (05:53)
[2023-10-11 06:41] LABS: BUN Creatinine Ratio 10.4 (10-20); Calcium 9.8 mg/dl (8.6-10.3); Creatinine Clr Calc Pharmacy 9.6 ml/min; Est GFR (African American) 8.8 ml/min; Est GFR (Non-African American) 7.6 ml/min; Potassium 3.7 mmol/L (3.5-5.1)
[2023-10-11] MEDS: AMIODARONE 200 MG TAB PO SCH ×2 (08:51→16:39)
[2023-10-11] MEDS: METOPROLOL TARTRATE 25 MG TAB PO SCH ×3 (08:52→20:45)
[2023-10-11] MEDS: FERROUS SULFATE 325 MG TAB PO SCH (08:55)
[2023-10-11] MEDS: ATORVASTATIN 40 MG TAB PO SCH (08:55)
[2023-10-11] MEDS: APIXABAN 2.5 MG TAB PO SCH ×2 (08:55→20:45)
[2023-10-11] MEDS: SEVELAMER HCL 800 MG TABLET PO SCH ×3 (08:56→16:39)
[2023-10-11] MEDS: PANTOprazole 40 MG TAB PO SCH (08:56)
[2023-10-11] MEDS: NEPHROCAPS PO SCH (08:56)
[2023-10-11] MEDS: FLUTICASONE PROPIONATE NA SPR 16 GM BTL NAE SCH ×2 (08:57→20:45)
[2023-10-11] MEDS: guaiFENesin SUGAR FREE 200 MG/10 ML UDC PO SCH ×3 (08:57→22:05)
--- NOTE | 2023-10-11 10:03 | Nephrology Progress Note ---
Date of Service October 11, 2023 Assessment & Plan (1) End stage renal disease: (2) Anemia: (3) COVID-19: (4) Uremia: (5) Atrial fibrillation with rapid ventricular response: Plan 83 y o M with ESKD, failed L RC AVF ( created on 12/14) , L BC AVF created 07/03/23 but requires transposition. He was hospitalized at [facility] 09/18/23- 09/22/23 due to NSTEMI, Cardiac cath on 09/19/23 showing severe obstructive coronary disease involving the LAD and left circumflex systems and evidence of recent acute coronary event involving the mid LAD. Medical management recommended. Kidney function was relatively stable after cardiac cath at that time with baseline creatinine around 5-5.6. [facility] and lab showed progressive worsening of renal function with multiple critical electrolyte abnormality and uremic symptoms. He was scheduled to have tunneled dialysis catheter on 10/04/2023 as an outpatient to start on dialysis. However prior to the procedure he was noted to be hypotensive with systolic blood pressure in 80s and new onset atrial fibrillation with RVR. He was also tested positive for COVID. Surgery was canceled and he was admitted for further evaluation. Initially was on pressor which was eventually discontinued as blood pressure improved only on midodrine. He had a temporary dialysis catheter and started on dialysis on 10/04/2023. BP improved. Respiratory status acceptable. Mild hypercalcemia, improved after HD. --tolerating HD via left BC AVF with 17g needle. Remove IJ temporary HD catheter. --Dose medications for eGFR less than 10, left arm nephrology precaution. --encourage po intake, on Renvela 1 tab 3 times daily with meals. Admission and Anticipated Discharge Date Admission Date: October 03, 2023 Subjective Davin was seen and evaluated during HD this morning. AVF was cannulated with 17g needle with decent blood flow. Appetite and po intake remains poor. BP improved. UO low. Cough improved but still congested. Review of Systems Review of Systems: ROS was done and denied any symptoms except mentioned above. Physical Exam Constitutional: WD/WN, vitals as above + ill appearing; no acute distress Respiratory: no respiratory distress Auscultation: + diminished lung sounds Cardiovascular: Rate/Rhythm: regular rate and regular rhythm Heart Sounds: normal S1 and normal S2 Extremities: + vascular access device (rt IJ temporar y HD catheter.) and + AV fistula (left BC AVF with bruit.); no edema Neurologic: no focal motor deficits Psychiatric: Orientation: alert and oriented x 3 Affect: euthymic affect Results & Data Vital Signs (Past 12 Hours) Vital Signs Temp Pulse Pulse Resp BP Pulse Ox Pulse Ox 10/11/23 09:42 10/11/23 09:42 76 10/11/23 07:30 36.5 C 86 22 130/86 97 10/11/23 06:18 96 10/11/23 03:00 36.5 C 75 24 107/60 96 10/10/23 23:11 10/10/23 23:00 36.4 C L 79 18 113/77 91 O2 Del Method O2 Del Method O2 Flow Rate O2 Flow Rate 10/11/23 09:42 Nasal Cannula 2 10/11/23 09:42 10/11/23 07:30 Nasal Cannula 4 10/11/23 06:18 Nasal Cannula 2 10/11/23 03:00 Nasal Cannula 10/10/23 23:11 Nasal Cannula 10/10/23 23:00 Nasal Cannula PG Care Time/CCT Total # of Minutes Spent Total Time Spent with Patient: Total time spent is greater than 50% in coordination of care (as documented) at patient's floor/unit and/or counseling patient: Coding Level of Care Code 78978 SUB INP/OBS CARE 2/35MIN Diagnoses End stage renal disease N18.6 Anemia due to stage 3 chronic kidney disease N18.3; D63.1 Anemia type: due to chronic kidney disease Chronic kidney disease stage: stage 3 (moderate) COVID-19 U07.1 Uremia N19 Atrial fibrillation with rapid ventricular response I48.91 (2) Anemia Anemia type: due to chronic kidney disease Chronic kidney disease stage: stage 3 (moderate) Qualified Code(s): N18.3 - Chronic kidney disease, stage 3 (moderate); D63.1 - Anemia in chronic kidney disease
[2023-10-11] MEDS: INSULIN ASPART PER UNIT CHARGE SC SCH ×4 (11:41→20:29)
[2023-10-11] MEDS: LANTUS PER UNIT CHARGE SC SCH ×2 (11:42→20:36)
--- NOTE | 2023-10-11 11:55 | Hospitalist Progress Note ---
Date of Service October 11, 2023 Assessment & Plan (1) Acute kidney injury superimposed on CKD: Plan: Nephrology consult and recommendations appreciated. He is now receiving hemodialysis. He has a temporary dialysis catheter in place. Vascular surgery was consulted for placement of tunneled dialysis catheter however due to his isolation status, surgery will be deferred till sometime next week probably Sunday (2) Hypotension: Plan: He is now off pressor support. Midodrine was discontinued Blood pressure holding up (3) Atrial fibrillation with rapid ventricular response: Plan: Initially converted to normal sinus rhythm with amiodarone infusion but now is back in atrial fibrillation with a controlled rate. 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 Telemetry. Appreciate cardiology consultation and recommendations. Amiodarone has been changed to oral, 200 mg twice daily continue metoprolol as well Started Eliquis 2.5 mg twice daily Stop aspirin so he will not be on triple anticoagulation (4) COVID-19: Plan: Nasal swab positivity. Asymptomatic. IV Decadron discontinued (5) Pneumonia: Plan: Bibasilar opacity seen on chest x-ray. However, this appears to be a combination of fluid overload and atelectasis. Actual pneumonia infection ruled out (6) High anion gap metabolic acidosis: Plan: Present on admission. He received sodium bicarbonate intravenously in the ED. Serial labs. Now resolved (7) Acute hypoxemic respiratory failure: Plan: Oxygen per nasal cannula to maintain saturation greater than 90%. Wean off as tolerated . He is only requiring 2 L of oxygen at this time (8) Cardiomyopathy: Plan: Recent anterior wall CA with known ischemic cardiomyopathy. Most recent echo revealed ejection fraction 40%. Medical management (9) Acute combined systolic and diastolic CHF, NYHA class 3: Plan: Continue hemodialysis per nephrology schedule. Serial chest x-ray. (10) Controlled type 2 diabetes mellitus with kidney complication, with long- term current use of insulin: Plan: ADA diet. Sliding scale coverage. Basal insulin if needed. 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 Tamsulosin on hold due to hypotension Plan It appears he will need temporary rehab placement at the time of discharge. Hopefully, this week, he needs a dialysis bed Admission and Anticipated Discharge Date Admission Date: October 03, 2023 Subjective Patient seen and examined today, no new complaints, resting quietly in bed, states he wants to sit up in the chair Review of Systems Review of Systems: All systems reviewed are negative, apart from the ones contained in the history. Physical Exam Physical Exam: The patient is awake, alert and oriented 3, well developed and well nourished, normocephalic and atraumatic, lying in bed and in no acute distress. HEENT--PERRL, EOMI, mucous membranes and oropharynx mildly dry Neck--supple. No JVD. No bruits. Thyroid normal, trachea midline, no adenopathy. Heart--normal S1 and S2. No murmurs, rubs or gallops. Lungs--clear bilaterally, no respiratory distress, no accessory muscle use. Abdomen--normal bowel sounds and soft. Extremities--no cyanosis or clubbing. No edema. Dermatologic--normal skin turgor, normal color, no abnormal lymph nodes, no rash. Neurologic--cranial nerves II through XII grossly intact. Rheumatologic--normal range of motion. Psychiatric--normal affect. Results & Data Results & Data Vital Signs (Past 12 Hours) Vital Signs Temp Pulse Pulse Resp BP Pulse Ox Pulse Ox 10/11/23 09:42 10/11/23 09:42 76 10/11/23 09:00 97.7 F 99 H 10/11/23 07:30 97.7 F 86 22 130/86 97 10/11/23 06:18 96 10/11/23 03:00 97.7 F 75 24 107/60 96 O2 Del Method O2 Del Method O2 Flow Rate O2 Flow Rate 10/11/23 09:42 Nasal Cannula 2 10/11/23 09:42 10/11/23 09:00 10/11/23 07:30 Nasal Cannula 4 10/11/23 06:18 Nasal Cannula 2 10/11/23 03:00 Nasal Cannula PG Care Time/CCT Total # of Minutes Spent Total Time Spent with Patient: Total time spent is greater than 50% in coordination of care (as documented) at patient's floor/unit and/or counseling patient: Coding Level of Care Code 78569 SUB INP/OBS CARE 2/35MIN Diagnoses Acute kidney injury superimposed on CKD N17.9; N18.9 Hypotension I95.9 Hypotension type: unspecified hypotension type Atrial fibrillation with rapid ventricular response I48.91 COVID-19 U07.1 Pneumonia J18.9 High anion gap metabolic acidosis E87.29 Acute hypoxemic respiratory failure J96.01 Cardiomyopathy I42.9 Acute combined systolic and diastolic CHF, 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 Controlled type 2 diabetes mellitus with kidney complication, with long-term current use of insulin E11.29; Z79.4 BPH with obstruction/lower urinary tract symptoms N40.1; N13.8 Time Spent (min) 35 (2) Hypotension Hypotension type: unspecified hypotension type Qualified Code(s): I95.9 - Hypotension, unspecified
[2023-10-11] MEDS: DOCUSATE SODIUM 100 MG CAP PO SCH ×2 (13:36→20:47)
[2023-10-11] MEDS: CLOPIDOGREL BISULFATE 75 MG TAB PO SCH (13:36)
[2023-10-11] MEDS: SENNA 8.6 MG TAB PO SCH (20:44)
[2023-10-12] MEDS: guaiFENesin SUGAR FREE 200 MG/10 ML UDC PO SCH (03:55)
[2023-10-12] MEDS: LEVOTHYROXINE SODIUM 50 MCG TABLET PO SCH (06:09)
[2023-10-12 07:29] LABS: Calcium 9.3 mg/dl (8.6-10.3); Creatinine Clr Calc Pharmacy 10.7 ml/min; Est GFR (African American) 10.1 ml/min; Est GFR (Non-African American) 8.7 ml/min; Potassium 3.6 mmol/L (3.5-5.1)
[2023-10-12] MEDS: SEVELAMER HCL 800 MG TABLET PO SCH ×3 (08:37→17:29)
[2023-10-12] MEDS: NEPHROCAPS PO SCH (08:37)
[2023-10-12] MEDS: FLUTICASONE PROPIONATE NA SPR 16 GM BTL NAE SCH ×2 (08:37→20:56)
[2023-10-12] MEDS: FERROUS SULFATE 325 MG TAB PO SCH (08:37)
[2023-10-12] MEDS: PANTOprazole 40 MG TAB PO SCH (08:37)
[2023-10-12] MEDS: AMIODARONE 200 MG TAB PO SCH ×2 (08:38→17:30)
[2023-10-12] MEDS: CLOPIDOGREL BISULFATE 75 MG TAB PO SCH (08:39)
[2023-10-12] MEDS: APIXABAN 2.5 MG TAB PO SCH ×2 (08:39→20:55)
[2023-10-12] MEDS: ATORVASTATIN 40 MG TAB PO SCH (08:39)
[2023-10-12] MEDS: METOPROLOL TARTRATE 25 MG TAB PO SCH ×3 (08:40→20:56)
[2023-10-12] MEDS: LANTUS PER UNIT CHARGE SC SCH ×2 (08:56→20:47)
[2023-10-12] MEDS: INSULIN ASPART PER UNIT CHARGE SC SCH ×4 (08:56→20:39)
--- NOTE | 2023-10-12 09:59 | Nephrology Progress Note ---
Date of Service October 12, 2023 Assessment & Plan (1) End stage renal disease: (2) Anemia: (3) COVID-19: (4) Uremia: (5) Atrial fibrillation with rapid ventricular response: Plan 83 y o M with ESKD, failed L RC AVF ( created on 12/14) , L BC AVF created 07/03/23. He was hospitalized at [facility] 09/18/23-09/22/23 due to NSTEMI, Cardiac cath on 09/19/23 showing severe obstructive coronary disease involving the LAD and left circumflex systems and evidence of recent acute coronary event involving the mid LAD. Medical management recommended. Kidney function was relatively stable after cardiac cath at that time with baseline creatinine around 5-5.6. He was discharged to [facility] for rehab and lab showed progressive worsening of renal function with multiple critical electrolyte abnormality and uremic symptoms. He was scheduled to have tunneled dialysis catheter on 10/04/2023 as an outpatient to start on dialysis. However prior to the procedure he was noted to be hypotensive with systolic blood pressure in 80s and new onset atrial fibrillation with RVR. He was also tested positive for COVID. Surgery was canceled and he was admitted for further evaluation. Initially was on pressor which was eventually discontinued as blood pressure improved, also off of midodrine. He had a temporary dialysis catheter and started on dialysis on 10/04/2023. AVF was successfully used on 10/11/2023 for 2 hours and daily he moved arm and middle was displaced and dialysis as completed via temporary dialysis catheter. BP relatively low, remain weak and lethargic with poor p.o. intake. Respiratory status acceptable. Mild hypercalcemia, improved after HD. -- Will try dialysis tomorrow again via left BC AVF with 17g needle. If able to use AV fistula for full session of dialysis, remove IJ temporary HD catheter. --Start on boost 1 can 3 times a day, encourage p.o. intake, will need assistance with p.o. intake --Dose medications for eGFR less than 10, left arm nephrology precaution. --Plan to discharge to [facility] Admission and Anticipated Discharge Date Admission Date: October 03, 2023 Subjective Davin was seen and evaluated this morning. Remain somewhat confused, weak and lethargic. Appetite and po intake remains poor. BP staying low. UO low. Cough improved but still congested. Review of Systems Review of Systems: Detail ROS was not possible. Physical Exam Constitutional: WD/WN, vitals as above + ill appearing and + lethargic; no acute distress Respiratory: no respiratory distress Auscultation: + diminished lung sounds and + crackles Cardiovascular: Rate/Rhythm: regular rate and regular rhythm Heart Sounds: normal S1 and normal S2 Extremities: + vascular access device (rt IJ temporary HD catheter.) and + AV fistula (left BC AVF with bruit.); no edema Neurologic: no focal motor deficits Psychiatric: Orientation: alert, oriented to place and cooperative Affect: euthymic affect Results & Data Vital Signs (Past 12 Hours) Vital Signs Temp Pulse Pulse Resp BP Pulse Ox Pulse Ox 10/12/23 08:00 10/12/23 08:00 78 10/12/23 07:52 36.6 C 70 18 97/66 L 97 10/12/23 06:00 94 10/12/23 03:00 36.6 C 69 19 103/64 99 10/11/23 23:12 70 10/11/23 23:00 36.6 C 69 15 100/57 L 95 O2 Del Method O2 Del Method O2 Flow Rate O2 Flow Rate 10/12/23 08:00 Nasal Cannula 2 10/12/23 08:00 10/12/23 07:52 Nasal Cannula 2 10/12/23 06:00 Nasal Cannula 2 10/12/23 03:00 Nasal Cannula 10/11/23 23:12 10/11/23 23:00 Nasal Cannula PG Care Time/CCT Total # of Minutes Spent Total Time Spent with Patient: Total time spent is greater than 50% in coordination of care (as documented) at patient's floor/unit and/or counseling patient: Coding Level of Care Code 12967 SUB INP/OBS CARE 2/35MIN Diagnoses End stage renal disease N18.6 Anemia due to stage 3 chronic kidney disease N18.3; D63.1 Anemia type: due to chronic kidney disease Chronic kidney disease stage: stage 3 (moderate) COVID-19 U07.1 Uremia N19 Atrial fibrillation with rapid ventricular response I48.91 (2) Anemia Anemia type: due to chronic kidney disease Chronic kidney disease stage: stage 3 (moderate) Qualified Code(s): N18.3 - Chronic kidney disease, stage 3 (moderate); D63.1 - Anemia in chronic kidney disease
[2023-10-12] MEDS: DOCUSATE SODIUM 100 MG CAP PO SCH ×2 (10:45→20:54)
[2023-10-12] MEDS: POLYETHYLENE (MIRALAX) 17 GM PACK PO PRN (10:45)
--- NOTE | 2023-10-12 13:37 | Hospitalist Progress Note ---
Date of Service October 12, 2023 Assessment & Plan (1) Acute kidney injury superimposed on CKD: Plan: Nephrology consult and recommendations appreciated. He is now receiving hemodialysis. He has a temporary dialysis catheter in place. Vascular surgery was consulted for placement of tunneled dialysis catheter however due to his isolation status, surgery will be deferred till sometime next week probably Sunday (2) Hypotension: Plan: He is now off pressor support. Midodrine was discontinued Blood pressure holding up (3) Atrial fibrillation with rapid ventricular response: Plan: Initially converted to normal sinus rhythm with amiodarone infusion but now is back in atrial fibrillation with a controlled rate. 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 Telemetry. Appreciate cardiology consultation and recommendations. Amiodarone has been changed to oral, 200 mg twice daily continue metoprolol as well Started Eliquis 2.5 mg twice daily Stop aspirin so he will not be on triple anticoagulation (4) COVID-19: Plan: Nasal swab positivity. Asymptomatic. IV Decadron discontinued (5) Pneumonia: Plan: Bibasilar opacity seen on chest x-ray. However, this appears to be a combination of fluid overload and atelectasis. Actual pneumonia infection ruled out still some cough, but improved (6) Acute hypoxemic respiratory failure: Plan: Oxygen per nasal cannula to maintain saturation greater than 90%. Wean off as tolerated . He is only requiring 2 L of oxygen at this time (7) Cardiomyopathy: Plan: Recent anterior wall NE with known ischemic cardiomyopathy. Most recent echo r evealed ejection fraction 40%. Medical management (8) Acute combined systolic and diastolic CHF, NYHA class 3: Plan: Continue hemodialysis per nephrology schedule. Serial chest x-ray. (9) Controlled type 2 diabetes mellitus with kidney complication, with long-term current use of insulin: Plan: ADA diet. Sliding scale coverage. Basal insulin if needed. Pharmacy currently managing glucose (10) BPH with obstruction/lower urinary tract symptoms: Plan: Danielson catheter in place for now. Tamsulosin on hold due to hypotension (11) High anion gap metabolic acidosis: Plan: Present on admission. He received sodium bicarbonate intravenously in the ED. Serial labs. Now resolved (12) Physical deconditioning: Plan: participating in PT Plan It appears he will need temporary rehab placement at the time of discharge. Hopefully, this week, he needs a dialysis bed Admission and Anticipated Discharge Date Admission Date: October 03, 2023 Subjective Patient seen and examined, lying quietly in bed,Lying quietly in bed Review of Systems Review of Systems: All systems reviewed are negative, apart from the ones contained in the history. Physical Exam Physical Exam: The patient is awake, alert , lying in bed and in no acute distress. HEENT--PERRL, EOMI, mucous membranes and oropharynx mildly dry Neck--supple. No JVD. No bruits. Thyroid normal, trachea midline, no adenopathy. Heart--normal S1 and S2. No murmurs, rubs or gallops. Lungs--clear bilaterally, no respiratory distress, no accessory muscle use. Abdomen--normal bowel sounds and soft. Extremities--no cyanosis or clubbing. No edema. Dermatologic--normal skin turgor, normal color, no abnormal lymph nodes, no rash. Neurologic--cranial nerves II through XII grossly intact. Rheumatologic--normal range of motion. Psychiatric--normal affect. Results & Data Results & Data Vital Signs (Past 12 Hours) Vital Signs Temp Pulse Pulse Resp BP Pulse Ox Pulse Ox 10/12/23 11:30 98.4 F 88 20 101/56 L 96 10/12/23 08:00 10/12/23 08:00 78 10/12/23 07:52 97.9 F 70 18 97/66 L 97 10/12/23 06:00 94 10/12/23 03:00 97.9 F 69 19 103/64 99 O2 Del Method O2 Del Method O2 Flow Rate O2 Flow Rate 10/12/23 11:30 Nasal Cannula 2 10/12/23 08:00 Nasal Cannula 2 10/12/23 08:00 10/12/23 07:52 Nasal Cannula 2 10/12/23 06:00 Nasal Cannula 2 10/12/23 03:00 Nasal Cannula PG Care Time/CCT Total # of Minutes Spent Total Time Spent with Patient: Total time spent is greater than 50% in coordination of care (as documented) at patient's floor/unit and/or counseling patient: Coding Level of Care Code 93137 SUB INP/OBS CARE 2/35MIN Diagnoses Acute kidney injury superimposed on CKD N17.9; N18.9 Hypotension I95.9 Hypotension type: unspecified hypotension type Atrial fibrillation with rapid ventricular response I48.91 COVID-19 U07.1 Pneumonia J18.9 Acute hypoxemic respiratory failure J96.01 Cardiomyopathy I42.9 Acute combined systolic and diastolic CHF, 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 Controlled type 2 diabetes mellitus with kidney complication, with long-term current use of insulin E11.29; Z79.4 BPH with obstruction/lower urinary tract symptoms N40.1; N13.8 High anion gap metabolic acidosis E87.29 Physical deconditioning R53.81 Time Spent (min) 35 (2) Hypotension Hypotension type: unspecified hypotension type Qualified Code(s): I95.9 - Hypotension, unspecified
[2023-10-12] MEDS: traMADol HCL 50 MG TABLET PO PRN (20:54)
[2023-10-12] MEDS: SENNA 8.6 MG TAB PO SCH (20:55)
[2023-10-12] MEDS: guaiFENesin SUGAR FREE 100 MG/5 ML UDC PO PRN (20:57)
[2023-10-13] MEDS: ACETAMINOPHEN 500 MG TAB PO PRN (01:42)
[2023-10-13] MEDS: LEVOTHYROXINE SODIUM 50 MCG TABLET PO SCH (05:46)
[2023-10-13] MEDS: guaiFENesin SUGAR FREE 100 MG/5 ML UDC PO PRN ×2 (05:46→19:25)
[2023-10-13] MEDS: INSULIN ASPART PER UNIT CHARGE SC SCH ×4 (08:08→20:42)
[2023-10-13] MEDS: LANTUS PER UNIT CHARGE SC SCH ×2 (08:09→20:42)
[2023-10-13 08:26] LABS: Hematocrit (blood only) 38.6 % (42.0-52.0); Hemoglobin 11.7 g/dl (14.0-18.0); Mean Corpuscular Hemoglobin 27.9 pg (25.0-34.0); Mean Corpuscular Hgb Conc 30.3 g/dL (32.0-36.0); Mean Corpuscular Volume 92.1 fL (80.0-100.0); Platelet Count 166 K/uL (130-400); RDW Coefficient of Variation 15.1 % (11.5-14.5); RDW Standard Deviation 51.2 fL (36.4-46.3); Red Blood Count 4.19 M/uL (4.70-6.10); White Blood Count 5.62 K/ul (4.8-10.8)
[2023-10-13] MEDS: AMIODARONE 200 MG TAB PO SCH ×2 (08:28→16:43)
[2023-10-13] MEDS: SEVELAMER HCL 800 MG TABLET PO SCH ×3 (08:29→16:43)
[2023-10-13] MEDS: APIXABAN 2.5 MG TAB PO SCH ×2 (08:29→20:41)
[2023-10-13] MEDS: ATORVASTATIN 40 MG TAB PO SCH (08:29)
[2023-10-13] MEDS: CLOPIDOGREL BISULFATE 75 MG TAB PO SCH (08:29)
[2023-10-13] MEDS: FLUTICASONE PROPIONATE NA SPR 16 GM BTL NAE SCH ×2 (08:30→20:41)
[2023-10-13] MEDS: FERROUS SULFATE 325 MG TAB PO SCH (08:30)
[2023-10-13] MEDS: PANTOprazole 40 MG TAB PO SCH (08:31)
[2023-10-13] MEDS: METOPROLOL TARTRATE 25 MG TAB PO SCH ×3 (08:31→20:40)
[2023-10-13] MEDS: NEPHROCAPS PO SCH (08:31)
[2023-10-13 08:43] LABS: Albumin Level 3.3 gm/dl (3.4-5.0); BUN Creatinine Ratio 10.1 (10-20); Calcium 9.9 mg/dl (8.6-10.3); Creatinine Clr Calc Pharmacy 8.3 ml/min; Est GFR (African American) 7.4 ml/min; Est GFR (Non-African American) 6.4 ml/min; Phosphorus 5.4 mg/dl (2.5-4.9); Potassium 4.1 mmol/L (3.5-5.1)
--- NOTE | 2023-10-13 12:11 | Nephrology Progress Note ---
Date of Service October 13, 2023 Assessment & Plan (1) End stage renal disease: Plan: ESRD attributed to hypertension. Started HD 10/04/23. AVF was successfully used on 10/11/2023. Failed L RC AVF (created on 12/14). L BC AVF created 07/03/[address] Godinez. AVF to be transposed in the future. We were able to use to AVF with 17 g needles on the . Unfortunately, needle infiltrated during cannulation today. HD cath used for treatment today. We Orders for dialysis today were entered into the EHR and reviewed with HD RN. Qb through catheter is acceptable. Next HD treatment planned for Sunday. Will attempt use of AVF on Sunday. If we are unable to use the AVF, HD permcath placement will be required. Medications are appropriately dosed for kidney function. Volume status acceptable. Sevelamer 1 tab QAC for hyperphosphatemia. (2) Anemia: Plan: Chronic stable. CATY therapy with HD PRN. (3) COVID-19: Plan: Clinically improving. (4) Atrial fibrillation with rapid ventricular response: (5) Ischemic cardiomyopathy: Plan: Hospitalized at [facility] 09/18/23-09/22/23 due to NSTEMI. 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 Medical management recommended by cardiology. Admission and Anticipated Discharge Date Admission Date: October 03, 2023 Subjective No acute events overnight. Davin was seen and evaluated during hemodialysis today. He is tolerating treatment reasonably well. Intradialytic hypotension noted. Qb at goal. Davin feels reasonably well. Cough persists. No fevers. Denies significant dyspnea. Appetite remains poor. Unfortunately, we were unable to cannulate AVF. Needle infiltrated. HD is being completed using HD catheter. Review of Systems Review of Systems: All systems reviewed & are unremarkable except as noted in HPI & below Physical Exam Constitutional: WD/WN, vitals as above + frail appearing and + lethargic; no acute distress Eyes: + anicteric sclerae ENMT: Mouth: + dry oral mucous membranes Neck: + thick neck Respiratory: no respiratory distress Auscultation: + diminished lung sounds and + crackles Cardiovascular: Rate/Rhythm: regular rate and regular rhythm Heart Sounds: normal S1 and normal S2 Extremities: + vascular access device (rt IJ temporary HD catheter.) and + AV fistula (left BC AVF with bruit.); no edema Skin: no rashes, warm and dry Neurologic: no focal motor deficits Psychiatric: Orientation: alert, oriented to place and cooperative Affect: + flat affect Results & Data Vital Signs (Past 12 Hours) Vital Signs Temp Pulse Pulse Resp BP BP Pulse Ox 10/13/23 12:00 75 84/51 L 10/13/23 11:30 74 103/65 10/13/23 11:00 73 92/53 L 10/13/23 10:30 78 88/56 L 10/13/23 10:15 77 80/48 L 10/13/23 10:00 75 88/58 L 10/13/23 09:47 74 94/60 L 10/13/23 09:26 36.3 C L 75 10/13/23 08:00 10/13/23 07:49 36.7 C 71 18 112/60 94 10/13/23 06:00 10/13/23 03:00 36.4 C L 74 20 108/58 L 93 Pulse Ox O2 Del Method O2 Del Method O2 Flow Rate O2 Flow Rate 10/13/23 12:00 10/13/23 11:30 10/13/23 11:00 10/13/23 10:30 10/13/23 10:15 10/13/23 10:00 10/13/23 09:47 10/13/23 09:26 10/13/23 08:00 Nasal Cannula 1 10/13/23 07:49 Nasal Cannula 1.0 10/13/23 06:00 94 Nasal Cannula 2 10/13/23 03:00 Nasal Cannula Laboratory Results Laboratory Results - last 24 hr 10/12/23 10/12/23 10/13/23 16:49 20:25 07:51 WBC RBC Hgb Hct MCV MCH MCHC RDW Std Deviation RDW Coeff of Aysha Plt Count MPV Sodium Potassium Chloride Carbon Dioxide Anion Gap BUN Creatinine Est Cr Clr Drug Dosing Est GFR ( Amer) Est GFR (Non-Af Amer) BUN/Creatinine Ratio Glucose POC Glucose 141 H 140 H 159 H Calcium Phosphorus Albumin 10/13/23 08:04 WBC 5.62 RBC 4.19 L Hgb 11.7 L Hct 38.6 L MCV 92.1 MCH 27.9 MCHC 30.3 L RDW Std Deviation 51.2 H RDW Coeff of Aysha 15.1 H Plt Count 166 MPV 11.0 Sodium 137 Potassium 4.1 Chloride 99 Carbon Dioxide 25 Anion Gap 13 H BUN 73 H Creatinine 7.21 H* D Est Cr Clr Drug Dosing 8.3 Est GFR ( Amer) 7.4 Est GFR (Non-Af Amer) 6.4 BUN/Creatinine Ratio 10.1 Glucose 126 H POC Glucose Calcium 9.9 Phosphorus 5.4 H Albumin 3.3 L PG Care Time/CCT Total # of Minutes Spent Total Time Spent with Patient: Total time spent is greater than 50% in coordination of care (as documented) at patient's floor/unit and/or counseling patient: Coding Level of Care Code 37764 SUB INP/OBS CARE 3/50MIN Diagnoses End stage renal disease N18.6 Anemia due to stage 3 chronic kidney disease N18.3; D63.1 Anemia type: due to chronic kidney disease Chronic kidney disease stage: stage 3 (moderate) COVID-19 U07.1 Atrial fibrillation with rapid ventricular response I48.91 Ischemic cardiomyopathy I25.5 (2) Anemia Anemia type: due to chronic kidney disease Chronic kidney disease stage: stage 3 (moderate) Qualified Code(s): N18.3 - Chronic kidney disease, stage 3 (moderate); D63.1 - Anemia in chronic kidney disease
--- NOTE | 2023-10-13 12:29 | Hospitalist Progress Note ---
Date of Service October 13, 2023 Assessment & Plan (1) Acute kidney injury superimposed on CKD: Plan: Nephrology consult and recommendations appreciated. He is now receiving hemodialysis. He has a temporary dialysis catheter in place. Vascular surgery was consulted for placement of tunneled dialysis catheter however due to his isolation status, surgery will be deferred till sometime next week probably Sunday (2) Hypotension: Plan: He is now off pressor support. Midodrine was discontinued Blood pressure holding up (3) Atrial fibrillation with rapid ventricular response: Plan: Initially converted to normal sinus rhythm with amiodarone infusion but now is back in atrial fibrillation with a controlled rate. 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 Telemetry. Appreciate cardiology consultation and recommendations. Amiodarone has been changed to oral, 200 mg twice daily continue metoprolol as well Started Eliquis 2.5 mg twice daily Stop aspirin (4) COVID-19: Plan: Nasal swab positivity. Asymptomatic. IV Decadron discontinued (5) Pneumonia: Plan: Bibasilar opacity seen on chest x-ray. However, this appears to be a combination of fluid overload and atelectasis. Actual pneumonia infection ruled out still some cough, but improved (6) Acute hypoxemic respiratory failure: Plan: Oxygen per nasal cannula to maintain saturation greater than 90%. Wean off as tolerated . He is only requiring 2 L of oxygen at this time (7) Cardiomyopathy: Plan: Recent anterior wall WI with known ischemic cardiomyopathy. Most recent echo revealed ejection fraction 40%. Medical management (8) Acute combined systolic and diastolic CHF, NYHA class 3: Plan: Continue hemodialysis per nephrology schedule. Serial chest x-ray. (9) Controlled type 2 diabetes mellitus with kidney complication, with long-term current use of insulin: Plan: ADA diet. Sliding scale coverage. Basal insulin if needed. Pharmacy currently managing glucose (10) BPH with obstruction/lower urinary tract symptoms: Plan: Danielson catheter in place for now. Tamsulosin on hold due to hypotension (11) High anion gap metabolic acidosis: Plan: Present on admission. He received sodium bicarbonate intravenously in the ED. Serial labs. Now resolved (12) Physical deconditioning: Plan: participating in PT Plan It appears he will need temporary rehab placement at the time of discharge. Hopefully, this week, he needs a dialysis bed Admission and Anticipated Discharge Date Admission Date: October 03, 2023 Subjective Patient seen and examined, undergoing hemodialysis, left AVF could not be cannulated. Review of Systems Review of Systems: All systems reviewed are negative, apart from the ones contained in the history. Physical Exam Physical Exam: The patient is awake, alert , lying in bed and in no acute distress. HEENT--PERRL, EOMI, mucous membranes and oropharynx mildly dry Neck--supple. No JVD. No bruits. Thyroid normal, trachea midline, no adenopathy. Heart--normal S1 and S2. No murmurs, rubs or gallops. Lungs--clear bilaterally, no respiratory distress, no accessory muscle use. Abdomen--normal bowel sounds and soft. Extremities--no cyanosis or clubbing. No edema. Dermatologic--normal skin turgor, normal color, no abnormal lymph nodes, no rash. Neurologic--cranial nerves II through XII grossly intact. Rheumatologic--normal range of motion. Psychiatric--normal affect. Results & Data Results & Data Vital Signs (Past 12 Hours) Vital Signs Temp Pulse Pulse Resp BP BP Pulse Ox 10/13/23 12:00 75 84/51 L 10/13/23 11:30 74 103/65 10/13/23 11:00 73 92/53 L 10/13/23 10:30 78 88/56 L 10/13/23 10:15 77 80/48 L 10/13/23 10:00 75 88/58 L 10/13/23 09:47 74 94/60 L 10/13/23 09:26 97.3 F L 75 10/13/23 08:00 10/13/23 07:49 98.1 F 71 18 112/60 94 10/13/23 06:00 10/13/23 03:00 97.5 F L 74 20 108/58 L 93 Pulse Ox O2 Del Method O2 Del Method O2 Flow Rate O2 Flow Rate 10/13/23 12:00 10/13/23 11:30 10/13/23 11:00 10/13/23 10:30 10/13/23 10:15 10/13/23 10:00 10/13/23 09:47 10/13/23 09:26 10/13/23 08:00 Nasal Cannula 1 10/13/23 07:49 Nasal Cannula 1.0 10/13/23 06:00 94 Nasal Cannula 2 10/13/23 03:00 Nasal Cannula PG Care Time/CCT Total # of Minutes Spent Total Time Spent with Patient: Total time spent is greater than 50% in coordination of care (as documented) at patient's floor/unit and/or counseling patient: Coding Level of Care Code 31519 SUB INP/OBS CARE 2/35MIN Diagnoses Acute kidney injury superimposed on CKD N17.9; N18.9 Hypotension I95.9 Hypotension type: unspecified hypotension type Atrial fibrillation with rapid ventricular response I48.91 COVID-19 U07.1 Pneumonia J18.9 Acute hypoxemic respiratory failure J96.01 Cardiomyopathy I42.9 Acute combined systolic and diastolic CHF, 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 Controlled type 2 diabetes mellitus with kidney complication, with long-term current use of insulin E11.29; Z79.4 BPH with obstruction/lower urinary tract symptoms N40.1; N13.8 High anion gap metabolic acidosis E87.29 Physical deconditioning R53.81 Time Spent (min) 35 (2) Hypotension Hypotension type: unspecified hypotension type Qualified Code(s): I95.9 - Hypotension, unspecified
[2023-10-13] MEDS: DOCUSATE SODIUM 100 MG CAP PO SCH ×2 (14:26→20:41)
[2023-10-13] MEDS: traMADol HCL 50 MG TABLET PO PRN (19:24)
[2023-10-13] MEDS: SENNA 8.6 MG TAB PO SCH (20:42)
[2023-10-14] MEDS: LEVOTHYROXINE SODIUM 50 MCG TABLET PO SCH (06:18)
[2023-10-14 06:51] LABS: BUN Creatinine Ratio 7.9 (10-20); Calcium 9.7 mg/dl (8.6-10.3); Creatinine Clr Calc Pharmacy 11.8 ml/min; Est GFR (African American) 11.4 ml/min; Est GFR (Non-African American) 9.9 ml/min
[2023-10-14] MEDS: INSULIN ASPART PER UNIT CHARGE SC SCH ×4 (07:48→21:47)
[2023-10-14] MEDS: AMIODARONE 200 MG TAB PO SCH ×2 (07:48→16:58)
[2023-10-14] MEDS: SEVELAMER HCL 800 MG TABLET PO SCH ×3 (07:49→16:58)
[2023-10-14] MEDS: ATORVASTATIN 40 MG TAB PO SCH (08:09)
[2023-10-14] MEDS: POLYETHYLENE (MIRALAX) 17 GM PACK PO PRN (08:09)
[2023-10-14] MEDS: guaiFENesin SUGAR FREE 100 MG/5 ML UDC PO PRN ×2 (08:09→17:24)
[2023-10-14] MEDS: DOCUSATE SODIUM 100 MG CAP PO SCH ×2 (08:09→20:27)
[2023-10-14] MEDS: PANTOprazole 40 MG TAB PO SCH (08:10)
[2023-10-14] MEDS: FLUTICASONE PROPIONATE NA SPR 16 GM BTL NAE SCH ×2 (08:10→20:08)
[2023-10-14] MEDS: METOPROLOL TARTRATE 25 MG TAB PO SCH ×3 (08:10→20:07)
[2023-10-14] MEDS: FERROUS SULFATE 325 MG TAB PO SCH (08:10)
[2023-10-14] MEDS: CLOPIDOGREL BISULFATE 75 MG TAB PO SCH (08:10)
[2023-10-14] MEDS: LANTUS PER UNIT CHARGE SC SCH ×2 (08:11→21:48)
[2023-10-14] MEDS: NEPHROCAPS PO SCH (08:11)
[2023-10-14] MEDS: APIXABAN 2.5 MG TAB PO SCH ×2 (08:11→20:08)
--- NOTE | 2023-10-14 10:18 | Hospitalist Progress Note ---
Date of Service October 14, 2023 Assessment & Plan (1) Acute kidney injury superimposed on CKD: Plan: Nephrology consult and recommendations appreciated. He is now receiving hemodialysis. He has a temporary dialysis catheter in place. Vascular surgery was consulted for placement of tunneled dialysis catheter however due to his isolation status, surgery will be deferred till sometime next week probably Sunday10/15/2023 (2) Atrial fibrillation with rapid ventricular response: Plan: Initially converted to normal sinus rhythm with amiodarone infusion but now is back in atrial fibrillation with a controlled rate. 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 Telemetry. Appreciate cardiology consultation and recommendations. Amiodarone has been changed to oral, 200 mg twice daily continue metoprolol as well Started Eliquis 2.5 mg twice daily Stop aspirin (3) COVID-19: Plan: Nasal swab positivity. Asymptomatic. IV Decadron discontinued Hopefully be out of isolation tomorrow (4) Hypotension: Plan: He is now off pressor support. Midodrine was discontinued Blood pressure holding up (5) Pneumonia: Plan: Bibasilar opacity seen on chest x-ray. However, this appears to be a combination of fluid overload and atelectasis. Actual pneumonia infection ruled out still some cough, but improved (6) Acute hypoxemic respiratory failure: Plan: Oxygen per nasal cannula to maintain saturation greater than 90%. Wean off as tolerated . He is only requiring 2 L of oxygen at this time (7) Cardiomyopathy: Plan: Recent anterior wall [place] with known ischemic cardiomyopathy. Most recent echo revealed ejection fraction 40%. Medical management (8) Acute combined systolic and diastolic CHF, NYHA class 3: Plan: Continue hemodialysis per nephrology schedule. Serial chest x-ray. (9) Controlled type 2 diabetes mellitus with kidney complication, with long-term current use of insulin: Plan: ADA diet. Sliding scale coverage. Basal insulin if needed. Pharmacy currently managing glucose (10) BPH with obstruction/lower urinary tract symptoms: Plan: Danielson catheter in place for now. Tamsulosin on hold due to hypotension (11) High anion gap metabolic acidosis: Plan: Present on admission. He received sodium bicarbonate intravenously in the ED. Serial labs. Now resolved (12) Physical deconditioning: Plan: participating in PT Plan It appears he will need temporary rehab placement at the time of discharge. Hopefully, this week, he needs a dialysis bed Admission and Anticipated Discharge Date Admission Date: October 03, 2023 Subjective Patient seen and examined, continues to have poor appetite, refusing nutritional supplements, only nibbles at his lunches and dinners Review of Systems Review of Systems: All systems reviewed are negative, apart from the ones contained in the history. Physical Exam Physical Exam: The patient is awake, alert , lying in bed and in no acute distress. HEENT--PERRL, EOMI, mucous membranes and oropharynx mildly dry Neck--supple. No JVD. No bruits. Thyroid normal, trachea midline, no adenopathy. Heart--normal S1 and S2. No murmurs, rubs or gallops. Lungs--clear bilaterally, no respiratory distress, no accessory muscle use. Abdomen--normal bowel sounds and soft. Extremities--no cyanosis or clubbing. No edema. Dermatologic--normal skin turgor, normal color, no abnormal lymph nodes, no rash. Neurologic--cranial nerves II through XII grossly intact. Rheumatologic--normal range of motion. Psychiatric--normal affect. Results & Data Results & Data Vital Signs (Past 12 Hours) Vital Signs Temp Pulse Pulse Resp BP Pulse Ox Pulse Ox 10/14/23 08:00 10/14/23 07:36 99.0 F 80 18 136/72 93 10/14/23 06:00 92 10/14/23 03:19 97.9 F 71 18 112/61 93 10/13/23 23:33 98.2 F 72 20 112/60 93 10/13/23 22:57 70 O2 Del Method O2 Del Method O2 Flow Rate O2 Flow Rate 10/14/23 08:00 Nasal Cannula 1 10/14/23 07:36 Nasal Cannula 1 10/14/23 06:00 Nasal Cannula 1 10/14/23 03:19 Room Air 10/13/23 23:33 Nasal Cannula 1 10/13/23 22:57 PG Care Time/CCT Total # of Minutes Spent Total Time Spent with Patient: Total time spent is greater than 50% in coordination of care (as documented) at patient's floor/unit and/or counseling patient: Coding Level of Care Code 27962 SUB INP/OBS CARE 2/35MIN Diagnoses Acute kidney injury superimposed on CKD N17.9; N18.9 Atrial fibrillation with rapid ventricular response I48.91 COVID-19 U07.1 Hypotension I95.9 Hypotension type: unspecified hypotension type Pneumonia J18.9 Acute hypoxemic respiratory failure J96.01 Cardiomyopathy I42.9 Acute combined systolic and diastolic CHF, 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 Controlled type 2 diabetes mellitus with kidney complication, with long-term current use of insulin E11.29; Z79.4 BPH with obstruction/lower urinary tract symptoms N40.1; N13.8 High anion gap metabolic acidosis E87.29 Physical deconditioning R53.81 Time Spent (min) 35 (4) Hypotension Hypotension type: unspecified hypotension type Qualified Code(s): I95.9 - Hypotension, unspecified
--- NOTE | 2023-10-14 10:31 | Nephrology Progress Note ---
Date of Service October 14, 2023 Assessment & Plan (1) End stage renal disease: Plan: ESRD attributed to hypertension. Started HD 10/04/23. L BC AVF was successfully used on 10/11/2023 with 17 g needles. Failed L RC AVF (created on 12/14). L BC AVF created 07/03/[address] Godinez. AVF to be transposed in the future. Unfortunately, needle infiltrated during cannulation yesterday. There is a small hematoma. The AVF has a bruit and thrill but is small. HD cath used for treatment yesterday. I have entered preliminary orders for dialysis tomorrow. We will attempt use of AVF tomorrow but if it cannot be use successfully, HD permcath placement will be required. Medications are appropriately dosed for kidney function. Volume status acceptable. Sevelamer 1 tab QAC for hyperphosphatemia. (2) Anemia: Plan: Chronic stable. CATY therapy with HD PRN. (3) COVID-19: Plan: Clinically improving. (4) Atrial fibrillation with rapid ventricular response: (5) Ischemic cardiomyopathy: Plan: Hospitalized at [facility] 09/18/23-09/22/23 due to NSTEMI. 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 Medical management recommended by cardiology. Admission and Anticipated Discharge Date Admission Date: October 03, 2023 Subjective No acute events overnight. Davin tolerated HD reasonably well yesterday - net UF ~650 ml. BP low throughout treatment. Access pressures alarming frequently toward end of dialysis. Volume status is controlled. Davin is breathing comfortably on 1 L/min NC O2 this AM. Appetite remains poor. He ate a small amount of toast and a couple of bites of eggs for breakfast. Davin told me that he has no desire to eat. Certain foods make him feel nauseous. He does not like the boost protein supplement. He remains very weak and somewhat confused. Difficulty with recall is not something I noticed during our recent visits in the clinic. He talked to me about his today and became emotional. Otherwise, his affect has been somewhat flat. He told me that his was admitted to the hospital with COVID and never made it back home. He recalled that she was transferred to [facility] and that he was not able to see her while she was in the hospital. He could not remember when she . He told me that it must have been "2013" but my understanding is that it was only 1-2 years ago. He could not recall the name of [facility] where she lived following hospit alization. Some of the information that he struggles with are details that he has told me before. Davin told me that he was at [facility] for a few days before he came back to the hospital but he could not recall why he was readmitted to [facility]. Review of Systems Review of Systems: All systems reviewed & are unremarkable except as noted in HPI & below Physical Exam Constitutional: WD/WN, vitals as above + frail appearing and + lethargic; no acute distress Eyes: + anicteric sclerae ENMT: Mouth: + dry oral mucous membranes Neck: trachea midline and + thick neck Respiratory: no respiratory distress Auscultation: lungs clear to auscultation bilaterally and + diminished lung sounds Cardiovascular: Rate/Rhythm: regular rate and regular rhythm Heart Sounds: normal S1 and normal S2 Extremities: + vascular access device (rt IJ temporary HD catheter.) and + AV fistula (left BC AVF with bruit.); no edema Skin: no rashes, warm and dry Neurologic: no focal motor deficits Psychiatric: Orientation: alert, oriented to place and cooperative Affect: + depressed affect Results & Data Vital Signs (Past 12 Hours) Vital Signs Temp Pulse Pulse Resp BP Pulse Ox Pulse Ox 10/14/23 08:00 10/14/23 07:36 37.2 C 80 18 136/72 93 10/14/23 06:00 92 10/14/23 03:19 36.6 C 71 18 112/61 93 10/13/23 23:33 36.8 C 72 20 112/60 93 10/13/23 22:57 70 O2 Del Method O2 Del Method O2 Flow Rate O2 Flow Rate 10/14/23 08:00 Nasal Cannula 1 10/14/23 07:36 Nasal Cannula 1 10/14/23 06:00 Nasal Cannula 1 10/14/23 03:19 Room Air 10/13/23 23:33 Nasal Cannula 1 10/13/23 22:57 Laboratory Results Laboratory Results - last 24 hr 10/13/23 10/13/23 10/13/23 14:17 16:13 19:42 Sodium Potassium Chloride Carbon Dioxide Anion Gap BUN Creatinine Est Cr Clr Drug Dosing Est GFR ( Amer) Est GFR (Non-Af Amer) BUN/Creatinine Ratio Glucose POC Glucose 115 H 185 H 174 H Calcium 10/14/23 10/14/23 05:56 07:34 Sodium 139 Potassium 4.0 Chloride 103 Carbon Dioxide 26 Anion Gap 10 BUN 40 H D Creatinine 5.04 H* D Est Cr Clr Drug Dosing 11.8 Est GFR ( Amer) 11.4 Est GFR (Non-Af Amer) 9.9 BUN/Creatinine Ratio 7.9 L Glucose 76 POC Glucose 79 Calcium 9.7 PG Care Time/CCT Total # of Minutes Spent Total Time Spent with Patient: Total time spent is greater than 50% in coordination of care (as documented) at patient's floor/unit and/or counseling patient: Coding Level of Care Code 64791 SUB INP/OBS CARE 3/50MIN Diagnoses End stage renal disease N18.6 Anemia due to stage 3 chronic kidney disease N18.3; D63.1 Anemia type: due to chronic kidney disease Chronic kidney disease stage: stage 3 (moderate) COVID-19 U07.1 Atrial fibrillation with rapid ventricular response I48.91 Ischemic cardiomyopathy I25.5 (2) Anemia Anemia type: due to chronic kidney disease Chronic kidney disease stage: stage 3 (moderate) Qualified Code(s): N18.3 - Chronic kidney disease, stage 3 (moderate); D63.1 - Anemia in chronic kidney disease
[2023-10-14] MEDS: SENNA 8.6 MG TAB PO SCH (20:08)
[2023-10-14] MEDS: traMADol HCL 50 MG TABLET PO PRN (20:27)
[2023-10-14] MEDS ORDERED: MELATONIN 3 MG TAB PO PRN (20:27)
[2023-10-15] MEDS: LEVOTHYROXINE SODIUM 50 MCG TABLET PO SCH (05:33)
[2023-10-15 06:33] LABS: Hematocrit (blood only) 35.9 % (42.0-52.0); Mean Corpuscular Hemoglobin 28.4 pg (25.0-34.0); Mean Corpuscular Hgb Conc 30.6 g/dL (32.0-36.0); Mean Corpuscular Volume 92.5 fL (80.0-100.0); Mean Platelet Volume 10.6 fL (9.4-12.4); Platelet Count 203 K/uL (130-400); RDW Coefficient of Variation 14.8 % (11.5-14.5); RDW Standard Deviation 50.2 fL (36.4-46.3); Red Blood Count 3.88 M/uL (4.70-6.10)
[2023-10-15 07:05] LABS: Albumin Level 3.3 gm/dl (3.4-5.0); BUN Creatinine Ratio 8.2 (10-20); Calcium 10.4 mg/dl (8.6-10.3); Creatinine Clr Calc Pharmacy 8.8 ml/min; Est GFR (African American) 8.1 ml/min; Phosphorus 4.3 mg/dl (2.5-4.9); Potassium 4.5 mmol/L (3.5-5.1)
[2023-10-15] MEDS: INSULIN ASPART PER UNIT CHARGE SC SCH ×4 (08:01→21:36)
[2023-10-15] MEDS: ATORVASTATIN 40 MG TAB PO SCH (08:02)
[2023-10-15] MEDS: FERROUS SULFATE 325 MG TAB PO SCH (08:02)
[2023-10-15] MEDS: NEPHROCAPS PO SCH (08:02)
[2023-10-15] MEDS: SEVELAMER HCL 800 MG TABLET PO SCH ×3 (08:02→16:49)
[2023-10-15] MEDS: AMIODARONE 200 MG TAB PO SCH ×2 (08:02→16:50)
[2023-10-15] MEDS: PANTOprazole 40 MG TAB PO SCH (08:02)
[2023-10-15] MEDS: APIXABAN 2.5 MG TAB PO SCH ×2 (08:03→21:37)
[2023-10-15] MEDS: FLUTICASONE PROPIONATE NA SPR 16 GM BTL NAE SCH ×2 (08:03→21:37)
[2023-10-15] MEDS: LANTUS PER UNIT CHARGE SC SCH ×2 (08:03→21:36)
[2023-10-15] MEDS: CLOPIDOGREL BISULFATE 75 MG TAB PO SCH (08:03)
--- NOTE | 2023-10-15 10:17 | Nephrology Progress Note ---
Date of Service October 15, 2023 Assessment & Plan (1) End stage renal disease: Plan: ESRD attributed to hypertension. Started HD 10/04/23. L BC AVF was successfully used on 10/11/2023 with 17 g needles. Failed L RC AVF (created on 12/14). L BC AVF created 07/03/[address] Godinez. AVF to be transposed in the future. Unfortunately, we have not been able to cannulate the AVF for reliable / adequate use. Vascular surgery will be consulted. Davin will require HD permcath placement pending maturation and transposition of the AVF. Orders for HD today were entered into the EHR and reviewed with the diaylsis RN. Medications are appropriately dosed for kidney function. Volume status acceptable. Sevelamer 1 tab QAC for hyperphosphatemia. (2) Anemia: Plan: Chronic stable. CATY therapy with HD PRN. (3) COVID-19: Plan: Isolation precautions removed today. (4) Ischemic cardiomyopathy: Plan: Hospitalized at [facility] 09/18/23-09/22/23 due to NSTEMI. 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 Medical management recommended by cardiology. Admission and Anticipated Discharge Date Admission Date: October 03, 2023 Subjective No acute events overnight. Davin was seen and evaluated during hemodialysis this AM. He was somnolent. Davin was able to be aroused but somewhat slow to respond and more lethargic than yesterday. He denies shortness of breath. He denied any complaints. No fevers. We were able to place an arterial needle in the AVF but Qb 250 with arterial pressures >250. TDC is working well. Review of Systems Review of Systems: All systems reviewed & are unremarkable except as noted in HPI & below Physical Exam Constitutional: WD/WN, vitals as above + ill appearing, + frail appearing and + lethargic; no acute distress Eyes: + anicteric sclerae ENMT: Mouth: + dry oral mucous membranes Neck: trachea midline and + thick neck Respiratory: no respiratory distress Auscultation: lungs clear to auscultation bilaterally, + diminished lung sounds and + crackles Cardiovascular: Rate/Rhythm: regular rate and regular rhythm Heart Sounds: normal S1 and normal S2 Extremities: + vascular access device (rt IJ temporary HD catheter.) and + AV fistula (left BC AVF with bruit.); no edema Skin: no rashes, warm and dry Neurologic: no focal motor deficits Psychiatric: Orientation: alert, oriented to place and cooperative Affect: + depressed affect and + flat affect Results & Data Vital Signs (Past 12 Hours) Vital Signs Temp Pulse Resp BP Pulse Ox O2 Del Method 10/15/23 07:58 36.8 C 87 18 100/59 L 94 Room Air 10/15/23 03:46 37.3 C 79 24 126/64 92 Room Air 10/14/23 23:27 36.8 C 84 19 116/69 92 Room Air Laboratory Results Laboratory Results - last 24 hr 10/14/23 10/14/23 10/14/23 11:35 16:31 20:38 WBC RBC Hgb Hct MCV MCH MCHC RDW Std Deviation RDW Coeff of Aysha Plt Count MPV Sodium Potassium Chloride Carbon Dioxide Anion Gap BUN Creatinine Est Cr Clr Drug Dosing Est GFR ( Amer) Est GFR (Non-Af Amer) BUN/Creatinine Ratio Glucose POC Glucose 107 H 120 H 164 H Calcium Phosphorus Albumin 10/15/23 10/15/23 06:01 07:47 WBC 7.70 RBC 3.88 L Hgb 11.0 L Hct 35.9 L MCV 92.5 MCH 28.4 MCHC 30.6 L RDW Std Deviation 50.2 H RDW Coeff of Aysha 14.8 H Plt Count 203 MPV 10.6 Sodium 139 Potassium 4.5 Chloride 104 Carbon Dioxide 23 Anion Gap 12 H BUN 55 H Creatinine 6.73 H* D Est Cr Clr Drug Dosing 8.8 Est GFR ( Amer) 8.1 Est GFR (Non-Af Amer) 7.0 BUN/Creatinine Ratio 8.2 L Glucose 84 POC Glucose 89 Calcium 10.4 H Phosphorus 4.3 D Albumin 3.3 L PG Care Time/CCT Total # of Minutes Spent Total Time Spent with Patient: Total time spent is greater than 50% in coordination of care (as documented) at patient's floor/unit and/or counseling patient: Coding Level of Care Code 14458 SUB INP/OBS CARE 3/50MIN Diagnoses End stage renal disease N18.6 Anemia due to stage 3 chronic kidney disease N18.3; D63.1 Anemia type: due to chronic kidney disease Chronic kidney disease stage: stage 3 (moderate) COVID-19 U07.1 Ischemic cardiomyopathy I25.5 (2) Anemia Anemia type: due to chronic kidney disease Chronic kidney disease stage: stage 3 (moderate) Qualified Code(s): N18.3 - Chronic kidney disease, stage 3 (moderate); D63.1 - Anemia in chronic kidney disease
--- NOTE | 2023-10-15 13:06 | XRay Report ---
XR chest 1V portable CLINICAL HISTORY: CHF TECHNIQUE: Single frontal radiograph of the chest was obtained. Comparison: Comparison is made to chest radiograph 10/07/2023 FINDINGS: Dual lumen catheter is seen in the right. Cardiomegaly is noted. The lungs are clear. No evidence of pleural effusion or pneumothorax. IMPRESSION: Cardiomegaly without evidence of pulmonary edema. ACT 112: Negative or not required by law. Electronically signed by: You Mario M.D. 10/15/2023 1:05 PM
[2023-10-15] MEDS: DOCUSATE SODIUM 100 MG CAP PO SCH ×2 (13:30→21:37)
[2023-10-15] MEDS: POLYETHYLENE (MIRALAX) 17 GM PACK PO PRN (13:30)
[2023-10-15] MEDS: METOPROLOL TARTRATE 25 MG TAB PO SCH ×3 (13:31→21:47)
--- NOTE | 2023-10-15 15:09 | Hospitalist Progress Note ---
Date of Service October 15, 2023 Assessment & Plan (1) Acute kidney injury superimposed on CKD: Plan: Nephrology consult and recommendations appreciated. He is now receiving hemodialysis. He has a temporary dialysis catheter in place. He needs a tunneled dialysis catheter but vascular surgery is unavailable. Seeking out other options. (2) Atrial fibrillation with rapid ventricular response: Plan: Initially converted to normal sinus rhythm with amiodarone infusion but now is back in atrial fibrillation with a controlled rate. 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 Telemetry. Appreciate cardiology consultation and recommendations. Continue amiodarone, Eliquis, metoprolol. Aspirin has been discontinued (3) COVID-19: Plan: Nasal swab positivity. Asymptomatic. Isolation has been discontinued today, October 15 (4) Hypotension: Plan: He is now off pressor support. Midodrine has been discontinued. Blood pressure has remained stable (5) Pneumonia: Plan: Bibasilar opacity seen on chest x-ray earlier this admission. However, this appears to be a combination of fluid overload and atelectasis. Actual pneumonia infection ruled out. Repeat chest x-ray done today, October 15, is negative for infiltrate or CHF. (6) Acute hypoxemic respiratory failure: Plan: Resolved. He is now on room air (7) Cardiomyopathy: Plan: Recent anterior wall GA with known ischemic cardiomyopathy. Most recent echo revealed ejection fraction 40%. Medical management (8) Acute combined systolic and diastolic CHF, NYHA class 3: Plan: Continue hemodialysis per nephrology schedule. Repeat chest x-ray done today, October 15, reveals complete resolution of CHF . (9) Controlled type 2 diabetes mellitus with kidney complication, with long-term current use of insulin: Plan: ADA diet. Sliding scale coverage. Plan Hopeful return to [facility] soon Admission and Anticipated Discharge Date Admission Date: October 03, 2023 Subjective Awake and alert. Nursing staff reports the patient has episodes of psychotic behavior and attempts to get out of bed and will not follow directions. Seroquel 25 mg at bedtime ordered. He also has a poor appetite that may respond to a trial of my gas drawl. He needs a tunneled dialysis catheter but unfortunately vascular surgery is unavailable. Will seek other options. Hopefully he can return to [facility] when he is ready for discharge. Portable chest x-ray was repeated today, October 15, which looks better with resolution of CHF. Blood pressure remains acceptable off of midodrine. Review of Systems 2 Review of Systems: Constitutional-no fever or chills ENT-no blurred vision, no double vision, no epistaxis, no sore throat Respiratory-no cough, no wheezing, no shortness of breath Cardiac-no palpitations, no chest pain, no syncope GI-no nausea, vomiting, diarrhea, melena, hematochezia -no urinary retention, no urinary incontinence, no dysuria, no hematuria Musculoskeletal-no joint pain, no muscle tenderness Skin-no bruising, no rashes, no pruritus Neuro-no isolated weakness, no paresthesia Psych-no depression, no anxiety Physical Exam 2 Physical Exam: General-alert, no fevers, no chills HEENT-head atraumatic and normocephalic, pupils equal and reactive to light, extraocular muscles intact. Dialysis catheter in place in the right IJ vein Neck-no lymphadenopathy or thyromegaly, trachea midline Chest-clear to auscultation. No rales, wheezing or rhonchi Cardiac-regular rate and rhythm, normal S1 and S2 Abdomen-normal bowel sounds, nontender, no hepatosplenomegaly Extremities-no cyanosis, clubbing, or edema Neuro-cranial nerves II through XII intact, motor and sensory function within normal limits, strength symmetrical with generalized weakness, no focal deficits Psych-normal affect, normal mood Results & Data Results & Data Vital Signs (Past 12 Hours) Vital Signs Temp Pulse Pulse Resp BP BP Pulse Ox 10/15/23 13:41 95 H 18 114/62 10/15/23 13:00 36.4 C L 87 99/59 L 10/15/23 12:43 85 88/57 L 10/15/23 12:30 85 83/53 L 10/15/23 12:00 83 95/53 L 10/15/23 11:50 86 92/49 L 10/15/23 11:30 79 84/50 L 10/15/23 11:00 79 98/56 L 10/15/23 10:30 78 88/51 L 10/15/23 10:00 76 95/56 L 10/15/23 09:30 75 92/49 L 10/15/23 09:21 36.5 C 79 10/15/23 08:00 10/15/23 07:58 36.8 C 87 18 100/59 L 94 10/15/23 03:46 37.3 C 79 24 126/64 92 O2 Del Method 10/15/23 13:41 10/15/23 13:00 10/15/23 12:43 10/15/23 12:30 10/15/23 12:00 10/15/23 11:50 10/15/23 11:30 10/15/23 11:00 10/15/23 10:30 10/15/23 10:00 10/15/23 09:30 10/15/23 09:21 10/15/23 08:00 Room Air 10/15/23 07:58 Room Air 10/15/23 03:46 Room Air Laboratory Results 10/15/23 06:01 10/15/23 06:01 PG Care Time/CCT Total # of Minutes Spent Total Time Spent with Patient: Total time spent is greater than 50% in coordination of care (as documented) at patient's floor/unit and/or counseling patient: Coding Level of Care Code 20768 SUB INP/OBS CARE 3/50MIN Diagnoses Acute kidney injury superimposed on CKD N17.9; N18.9 Atrial fibrillation with rapid ventricular response I48.91 COVID-19 U07.1 Hypotension I95.9 Hypotension type: unspecified hypotension type Pneumonia J18.9 Acute hypoxemic respiratory failure J96.01 Cardiomyopathy I42.9 Acute combined systolic and diastolic CHF, 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 Controlled type 2 diabetes mellitus with kidney complication, with long-term current use of insulin E11.29; Z79.4 (4) Hypotension Hypotension type: unspecified hypotension type Qualified Code(s): I95.9 - Hypotension, unspecified
[2023-10-15] MEDS: MEGESTROL ACETATE 40 MG TAB PO SCH (16:48)
[2023-10-15] MEDS: QUEtiapine FUMARATE 25 MG TABLET PO SCH (21:46)
[2023-10-15] MEDS: SENNA 8.6 MG TAB PO SCH (21:47)
[2023-10-16] MEDS: LEVOTHYROXINE SODIUM 50 MCG TABLET PO SCH (05:53)
[2023-10-16 06:57] LABS: Basophils # (auto) 0.04 K/uL (0.00-0.20); Basophils % (auto) 0.8 %; Eosinophils # (auto) 0.09 K/uL (0.00-0.50); Eosinophils % (auto) 1.8 %; Hemoglobin 10.9 g/dl (14.0-18.0); Immature Granulocytes # (auto) 0.03 K/uL (0.01-0.20); Immature Granulocytes % (auto) 0.6 %; Lymphocytes # (auto) 0.91 K/uL (1.20-3.40); Lymphocytes % (auto) 18.7 %; Mean Corpuscular Hemoglobin 28.6 pg (25.0-34.0); Mean Corpuscular Hgb Conc 31.1 g/dL (32.0-36.0); Mean Corpuscular Volume 91.9 fL (80.0-100.0); Mean Platelet Volume 10.7 fL (9.4-12.4); Monocytes # (auto) 0.64 K/uL (0.11-0.59); Monocytes % (auto) 13.1 %; Neutrophils # (auto) 3.16 K/uL (1.40-6.50); Platelet Count 223 K/uL (130-400); RDW Standard Deviation 50.3 fL (36.4-46.3); Red Blood Count 3.81 M/uL (4.70-6.10); White Blood Count 4.87 K/ul (4.8-10.8)
[2023-10-16 07:19] LABS: BUN Creatinine Ratio 6.3 (10-20); Calcium 10.1 mg/dl (8.6-10.3); Creatinine Clr Calc Pharmacy 11.4 ml/min; Est GFR (African American) 10.9 ml/min; Est GFR (Non-African American) 9.4 ml/min; Potassium 3.7 mmol/L (3.5-5.1)
[2023-10-16] MEDS: ATORVASTATIN 40 MG TAB PO SCH (08:46)
[2023-10-16] MEDS: SEVELAMER HCL 800 MG TABLET PO SCH ×3 (08:46→17:11)
[2023-10-16] MEDS: FLUTICASONE PROPIONATE NA SPR 16 GM BTL NAE SCH ×2 (08:46→20:51)
[2023-10-16] MEDS: PANTOprazole 40 MG TAB PO SCH (08:46)
[2023-10-16] MEDS: NEPHROCAPS PO SCH (08:46)
[2023-10-16] MEDS: CLOPIDOGREL BISULFATE 75 MG TAB PO SCH (08:47)
[2023-10-16] MEDS: MEGESTROL ACETATE 40 MG TAB PO SCH (08:47)
[2023-10-16] MEDS: APIXABAN 2.5 MG TAB PO SCH (08:47)
[2023-10-16] MEDS: FERROUS SULFATE 325 MG TAB PO SCH (08:47)
[2023-10-16] MEDS: AMIODARONE 200 MG TAB PO SCH ×2 (08:47→17:10)
[2023-10-16] MEDS: METOPROLOL TARTRATE 25 MG TAB PO SCH ×3 (08:47→20:47)
[2023-10-16] MEDS: INSULIN ASPART PER UNIT CHARGE SC SCH ×4 (08:49→20:44)
[2023-10-16] MEDS: LANTUS PER UNIT CHARGE SC SCH ×2 (08:49→20:44)
[2023-10-16] MEDS: MIDODRINE HCL 2.5 MG TAB PO SCH ×3 (10:09→17:10)
[2023-10-16] MEDS: DOCUSATE SODIUM 100 MG CAP PO SCH ×2 (10:09→20:54)
[2023-10-16] MEDS ORDERED: ceFAZolin 2000MG 2,000 MG/15 ML SYR IV ONE (10:22)
--- NOTE | 2023-10-16 10:36 | Nephrology Progress Note ---
Date of Service October 16, 2023 Assessment & Plan (1) End stage renal disease: Plan: ESRD attributed to hypertension. Started HD 10/04/23. L BC AVF was successfully used on 10/11/2023 with 17 g needles. Failed L RC AVF (created on 12/14). L BC AVF created 07/03/[address] Godinez. AVF to be transposed in the future. Unfortunately, we have not been able to cannulate the AVF for reliable use. Vascular surgery has been consulted. Davin will require HD permcath placement pending maturation and transposition of the AVF. Unfortunately, he was not available yesterday. I am waiting to hear about future availability. Next HD is planned for tomorrow. Medications are appropriately dosed for kidney function. Volume status acceptable. Sevelamer 1 tab QAC for hyperphosphatemia. (2) Anemia: Plan: Chronic stable. CATY therapy with HD PRN. (3) Ischemic cardiomyopathy: Plan: Hospitalized at [facility] 09/18/23-09/22/23 due to NSTEMI. 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 Medical management recommended by cardiology. Admission and Anticipated Discharge Date Admission Date: October 03, 2023 Subjective No acute events overnight. Tolerated HD reasonably well yesterday. No fevers. Breathing comfortably. Remains very frail and weak. Intermittently confused. Appetite poor. Seroquel and megestrol added yesterday. I have not heard back today regarding Dr. Godinez's availability for HD catheter placement. Review of Systems Review of Systems: All systems reviewed & are unremarkable except as noted in HPI & below Physical Exam Constitutional: WD/WN, vitals as above + ill appearing, + frail appearing and + lethargic; no acute distress Eyes: + anicteric sclerae ENMT: Mouth: + dry oral mucous membranes Neck: trachea midline and + thick neck Respiratory: no respiratory distress Auscultation: lungs clear to auscultation bilaterally, + diminished lung sounds and + crackles Cardiovascular: Rate/Rhythm: regular rate and regular rhythm Heart Sounds: normal S1 and normal S2 Extremities: + vascular access device (rt IJ t emporary HD catheter.) and + AV fistula (left BC AVF with bruit.); no edema Skin: no rashes, warm and dry Neurologic: no focal motor deficits Psychiatric: Orientation: alert, oriented to place and cooperative Affect: + depressed affect and + flat affect Results & Data Vital Signs (Past 12 Hours) Vital Signs Temp Pulse Resp BP Pulse Ox Pulse Ox O2 Del Method 10/16/23 07:20 37.0 C 65 22 92/48 L 97 Room Air 10/16/23 05:50 93 10/16/23 03:00 71 18 97/55 L 91 Room Air 10/15/23 23:31 36.9 C 73 23 85/53 L 93 Room Air O2 Del Method 10/16/23 07:20 10/16/23 05:50 Room Air 10/16/23 03:00 10/15/23 23:31 Laboratory Results Laboratory Results - last 24 hr 10/15/23 10/15/23 10/15/23 13:26 16:19 20:11 WBC RBC Hgb Hct MCV MCH MCHC RDW Std Deviation RDW Coeff of Aysha Plt Count MPV Immature Gran % (Auto) Neut % (Auto) Lymph % (Auto) [place] % (Auto) Eos % (Auto) Baso % (Auto) Neut # (Auto) Lymph # (Auto) [place] # (Auto) Eos # (Auto) Baso # (Auto) Immature Gran # (Auto) Sodium Potassium Chloride Carbon Dioxide Anion Gap BUN Creatinine Est Cr Clr Drug Dosing Est GFR ( Amer) Est GFR (Non-Af Amer) BUN/Creatinine Ratio Glucose POC Glucose 99 133 H 148 H Calcium 10/16/23 10/16/23 06:21 07:18 WBC 4.87 RBC 3.81 L Hgb 10.9 L Hct 35.0 L MCV 91.9 MCH 28.6 MCHC 31.1 L RDW Std Deviation 50.3 H RDW Coeff of Aysha 15.0 H Plt Count 223 MPV 10.7 Immature Gran % (Auto) 0.6 Neut % (Auto) 65.0 Lymph % (Auto) 18.7 [place] % (Auto) 13.1 Eos % (Auto) 1.8 Baso % (Auto) 0.8 Neut # (Auto) 3.16 Lymph # (Auto) 0.91 L [place] # (Auto) 0.64 H Eos # (Auto) 0.09 Baso # (Auto) 0.04 Immature Gran # (Auto) 0.03 Sodium 136 Potassium 3.7 Chloride 102 Carbon Dioxide 25 Anion Gap 9 BUN 33 H D Creatinine 5.23 H* D Est Cr Clr Drug Dosing 11.4 Est GFR ( Amer) 10.9 Est GFR (Non-Af Amer) 9.4 BUN/Creatinine Ratio 6.3 L Glucose 128 H POC Glucose 110 H Calcium 10.1 PG Care Time/CCT Total # of Minutes Spent Total Time Spent with Patient: Total time spent is greater than 50% in coordination of care (as documented) at patient's floor/unit and/or counseling patient: Coding Level of Care Code 12581 SUB INP/OBS CARE 3/50MIN Diagnoses End stage renal disease N18.6 Anemia due to stage 3 chronic kidney disease N18.3; D63.1 Anemia type: due to chronic kidney disease Chronic kidney disease stage: stage 3 (moderate) Ischemic cardiomyopathy I25.5 (2) Anemia Anemia type: due to chronic kidney disease Chronic kidney disease stage: stage 3 (moderate) Qualified Code(s): N18.3 - Chronic kidney disease, stage 3 (moderate); D63.1 - Anemia in chronic kidney disease
--- NOTE | 2023-10-16 14:37 | Hospitalist Progress Note ---
Date of Service October 16, 2023 Assessment & Plan (1) Acute kidney injury superimposed on CKD: Plan: Nephrology consult and recommendations appreciated. He is now receiving hemodialysis. He has a temporary dialysis catheter in place. He needs a tunneled dialysis catheter but vascular surgery is currently unavailable. If vascular surgery remains unavailable tomorrow, will ask Dr. Damian Padron to do the procedure. (2) Atrial fibrillation with rapid ventricular response: Plan: Initially converted to normal sinus rhythm with amiodarone infusion but now is back in atrial fibrillation with a controlled rate. 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 Telemetry. Appreciate cardiology consultation and recommendations. Continue amiodarone, Eliquis, metoprolol. Aspirin has been discontinued (3) COVID-19: Plan: Nasal swab positivity. Asymptomatic. Isolation was discontinued yesterday , October 15 (4) Hypotension: Plan: He is now off pressor support. Midodrine was also discontinued but restarted today, October 16 due to recurrent hypotension. (5) Pneumonia: Plan: Bibasilar opacity seen on chest x-ray earlier this admission. However, this appears to be a combination of fluid overload and atelectasis. Actual pneumonia infection ruled out. Repeat chest x-ray done on October 15 was negative for infiltrate or CHF. (6) Acute hypoxemic respiratory failure: Plan: Resolved. He is now on room air (7) Cardiomyopathy: Plan: Recent anterior wall [place] with known ischemic cardiomyopathy. Most recent echo revealed ejection fraction 40%. Medical management (8) Acute combined systolic and diastolic CHF, NYHA class 3: Plan: Continue hemodialysis per nephrology schedule. Repeat chest x-ray done on October 15 revealed complete resolution of CHF . (9) Controlled type 2 diabetes mellitus with kidney complication, with long-term current use of insulin: Plan: ADA diet. Sliding scale coverage. Plan Hopeful return to [facility] soon after placement of tunneled dialysis catheter. He appears to be medically stable. Admission and Anticipated Discharge Date Admission Date: October 03, 2023 Subjective Drowsy this morning. Probably from Seroquel at bedtime last night. He has not had any aberrant behavior however. Midodrine restarted for hypotension. Nephrology entry noted. If Dr. Godinez is not available to place a tunneled dialysis catheter tomorrow then we should probably ask Dr. Damian Padron. Portable chest x-ray done yesterday, October 15, negative for signs of CHF. He remains on room air. Review of Systems 2 Review of Systems: Constitutional-no fever or chills ENT-no blurred vision, no double vision, no epistaxis, no sore throat Respiratory-no cough, no wheezing, no shortness of breath Cardiac-no palpitations, no chest pain, no syncope GI-no nausea, vomiting, diarrhea, melena, hematochezia -no urinary retention, no urinary incontinence, no dysuria, no hematuria Musculoskeletal-no joint pain, no muscle tenderness Skin-no bruising, no rashes, no pruritus Neuro-no isolated weakness, no paresthesia Psych-no depression, no anxiety Physical Exam 2 Physical Exam: General-alert, no fevers, no chills HEENT-head atraumatic and normocephalic, pupils equal and reactive to light, extraocular muscles intact. Dialysis catheter in place in the right IJ vein Neck-no lymphadenopathy or thyromegaly, trachea midline Chest-clear to auscultation. No rales, wheezing or rhonchi Cardiac-regular rate and rhythm, normal S1 and S2 Abdomen-normal bowel sounds, nontender, no hepatosplenomegaly Extremities-no cyanosis, clubbing, or edema Neuro-cranial nerves II through XII intact, motor and sensory function within normal limits, strength symmetrical with generalized weakness, no focal deficits Psych-normal affect, normal mood Results & Data Results & Data Vital Signs (Past 12 Hours) Vital Signs Temp Pulse Pulse Resp BP Pulse Ox Pulse Ox 10/16/23 11:23 36.9 C 70 18 97/64 L 94 10/16/23 08:00 74 10/16/23 07:20 37.0 C 65 22 92/48 L 97 10/16/23 05:50 93 10/16/23 03:00 71 18 97/55 L 91 O2 Del Method O2 Del Method 10/16/23 11:23 Room Air 10/16/23 08:00 10/16/23 07:20 Room Air 10/16/23 05:50 Room Air 10/16/23 03:00 Room Air Laboratory Results 10/16/23 06:21 10/16/23 06:21 PG Care Time/CCT Total # of Minutes Spent Total Time Spent with Patient: Total time spent is greater than 50% in coordination of care (as documented) at patient's floor/unit and/or counseling patient: Coding Level of Care Code 58089 SUB INP/OBS CARE 50MIN Diagnoses Acute kidney injury superimposed on CKD N17.9; N18.9 Atrial fibrillation with rapid ventricular response I48.91 COVID-19 U07.1 Hypotension I95.9 Hypotension type: unspecified hypotension type Pneumonia J18.9 Acute hypoxemic respiratory failure J96.01 Cardiomyopathy I42.9 Acute combined systolic and diastolic CHF, 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 Controlled type 2 diabetes mellitus with kidney complication, with long-term current use of insulin E11.29; Z79.4 (4) Hypotension Hypotension type: unspecified hypotension type Qualified Code(s): I95.9 - Hypotension, unspecified
[2023-10-16] MEDS: QUEtiapine FUMARATE 25 MG TABLET PO SCH (20:51)
[2023-10-16] MEDS: SENNA 8.6 MG TAB PO SCH (20:51)
[2023-10-17] MEDS: LEVOTHYROXINE SODIUM 50 MCG TABLET PO SCH (06:21)
[2023-10-17 06:42] LABS: Basophils # (auto) 0.04 K/uL (0.00-0.20); Basophils % (auto) 0.8 %; Eosinophils # (auto) 0.12 K/uL (0.00-0.50); Eosinophils % (auto) 2.4 %; Hematocrit (blood only) 33.8 % (42.0-52.0); Hemoglobin 10.3 g/dl (14.0-18.0); Immature Granulocytes # (auto) 0.01 K/uL (0.01-0.20); Immature Granulocytes % (auto) 0.2 %; Lymphocytes # (auto) 0.84 K/uL (1.20-3.40); Mean Corpuscular Hemoglobin 28.2 pg (25.0-34.0); Mean Corpuscular Hgb Conc 30.5 g/dL (32.0-36.0); Mean Corpuscular Volume 92.6 fL (80.0-100.0); Mean Platelet Volume 10.4 fL (9.4-12.4); Monocytes # (auto) 0.48 K/uL (0.11-0.59); Monocytes % (auto) 9.7 %; Neutrophils # (auto) 3.44 K/uL (1.40-6.50); Neutrophils % (auto) 69.9 %; Platelet Count 238 K/uL (130-400); RDW Coefficient of Variation 14.9 % (11.5-14.5); RDW Standard Deviation 50.6 fL (36.4-46.3); Red Blood Count 3.65 M/uL (4.70-6.10); White Blood Count 4.93 K/ul (4.8-10.8)
[2023-10-17 07:35] LABS: Calcium 10.4 mg/dl (8.6-10.3)
[2023-10-17 07:41] LABS: BUN Creatinine Ratio 7.1 (10-20); Creatinine Clr Calc Pharmacy 8.7 ml/min; Est GFR (Non-African American) 6.9 ml/min
[2023-10-17] MEDS ORDERED: ceFAZolin 2000MG 2,000 MG/15 ML SYR IV ONE ×2 (08:00→10:45)
[2023-10-17] MEDS: INSULIN ASPART PER UNIT CHARGE SC SCH ×4 (08:17→20:58)
[2023-10-17] MEDS: LANTUS PER UNIT CHARGE SC SCH ×2 (09:00→20:57)
[2023-10-17] MEDS: FLUTICASONE PROPIONATE NA SPR 16 GM BTL NAE SCH ×2 (09:02→20:08)
--- NOTE | 2023-10-17 09:27 | History & Physical Bridge Note ---
Date of Service October 17, 2023 History & Physical Bridge Note Patient scheduled for a PermCath placement today. I have discussed the risks options and benefits of the procedure with the patient. The patient understands the risks options and benefits and agrees to the procedure. I have examined the patient, reviewed the History & Physical and in the interval since the performance of the History & Physical I have noted the following changes of clinical significance: no changes noted
--- NOTE | 2023-10-17 10:01 | Nephrology Progress Note ---
Date of Service October 17, 2023 Assessment & Plan (1) End stage renal disease: Plan: ESRD attributed to hypertension. Started HD 10/04/23. L BC AVF was successfully used on 10/11/2023 with 17 g needles. Failed L RC AVF (created on 12/14). L BC AVF created 07/03/[address] Godinez. AVF to be transposed in the future. Unfortunately, we have not been able to cannulate the AVF for reliable use. Vascular surgery has been consulted. HD permcath will be placed today. Orders for HD today were entered into the EHR and discussed with the excavator operator. Plan for HD today post HD. Midodrine has been restarted for hypotension. Medications are appropriately dosed for kidney function. Sevelamer 1 tab QAC for hyperphosphatemia. (2) Anemia: Plan: Chronic stable. CATY therapy with HD PRN. (3) Ischemic cardiomyopathy: Plan: Hospitalized at [facility] 09/18/23-09/22/23 due to NSTEMI. 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 Medical management recommended by cardiology. (4) Physical deconditioning: Plan: Davin remains very debilitated with noted confusion. He was out of bed with PT this morning. Appetite very poor. Admission and Anticipated Discharge Date Admission Date: October 03, 2023 Subjective No acute events overnight. Davin was up with PT this morning. He was seen and evaluated prior to being taken to the OR for TDC placement. He feels well. No acute complaints. Appetite remains poor. No fevers or chills. Denies dyspnea. Appetite remains very poor. Review of Systems Review of Systems: All systems reviewed & are unremarkable except as noted in HPI & below Physical Exam Constitutional: + frail appearing; no acute distress Eyes: + anicteric sclerae ENMT: Mouth: + dry oral mucous membranes Neck: trachea midline and + thick neck Respiratory: no respiratory distress Auscultation: lungs clear to auscultation bilaterally and + crackles Cardiovascular: Rate/Rhythm: regular rate and regular rhythm Heart Sounds: normal S1 and normal S2 Extremities: + vascular access device (rt IJ temporary HD catheter.) and + AV fistula (left BC AVF with bruit.); no edema Skin: no rashes, warm and dry Neurologic: no focal motor deficits Psychiatric: Orientation: alert and cooperative Affect: + flat affect Results & Data Vital Signs (Past 12 Hours) Vital Signs Temp Pulse Pulse Resp BP Pulse Ox O2 Del Method 10/17/23 08:40 36.7 C 82 18 113/70 94 Room Air 10/17/23 07:12 61 10/17/23 03:00 36.4 C L 70 21 98/55 L 92 Room Air 10/16/23 23:00 64 10/16/23 23:00 36.5 C 67 16 99/61 L 97 Room Air Laboratory Results Laboratory Results - last 24 hr 10/16/23 10/16/23 10/16/23 11:21 16:20 20:10 WBC RBC Hgb Hct MCV MCH MCHC RDW Std Deviation RDW Coeff of Aysha Plt Count MPV Immature Gran % (Auto) Neut % (Auto) Lymph % (Auto) [place] % (Auto) Eos % (Auto) Baso % (Auto) Neut # (Auto) Lymph # (Auto) [place] # (Auto) Eos # (Auto) Baso # (Auto) Immature Gran # (Auto) Sodium Potassium Chloride Carbon Dioxide Anion Gap BUN Creatinine Est Cr Clr Drug Dosing Est GFR ( Amer) Est GFR (Non-Af Amer) BUN/Creatinine Ratio Glucose POC Glucose 213 H 173 H 119 H Calcium 10/17/23 10/17/23 10/17/23 06:06 07:27 09:52 WBC 4.93 RBC 3.65 L Hgb 10.3 L Hct 33.8 L MCV 92.6 MCH 28.2 MCHC 30.5 L RDW Std Deviation 50.6 H RDW Coeff of Aysha 14.9 H Plt Count 238 MPV 10.4 Immature Gran % (Auto) 0.2 Neut % (Auto) 69.9 Lymph % (Auto) 17.0 [place] % (Auto) 9.7 Eos % (Auto) 2.4 Baso % (Auto) 0.8 Neut # (Auto) 3.44 Lymph # (Auto) 0.84 L [place] # (Auto) 0.48 Eos # (Auto) 0.12 Baso # (Auto) 0.04 Immature Gran # (Auto) 0.01 Sodium 138 Potassium 4.0 Chloride 103 Carbon Dioxide 24 Anion Gap 11 BUN 48 H Creatinine 6.77 H* D Est Cr Clr Drug Dosing 8.7 Est GFR ( Amer) 8.0 Est GFR (Non-Af Amer) 6.9 BUN/Creatinine Ratio 7.1 L Glucose 123 H POC Glucose 125 H 110 H Calcium 10.4 H PG Care Time/CCT Total # of Minutes Spent Total Time Spent with Patient: Total time spent is greater than 50% in coordination of care (as documented) at patient's floor/unit and/or counseling patient: Coding Level of Care Code 93501 SUB INP/OBS CARE 3/50MIN Diagnoses End stage renal disease N18.6 Anemia due to stage 3 chronic kidney disease N18.3; D63.1 Anemia type: due to chronic kidney disease Chronic kidney disease stage: stage 3 (moderate) Ischemic cardiomyopathy I25.5 Physical deconditioning R53.81 (2) Anemia Anemia type: due to chronic kidney disease Chronic kidney disease stage: stage 3 (moderate) Qualified Code(s): N18.3 - Chronic kidney disease, stage 3 (moderate); D63.1 - Anemia in chronic kidney disease
[2023-10-17] MEDS ORDERED: D5W AND 1/4NSS 1,000 ML IV SCH ×2 (10:30→10:45)
[2023-10-17] MEDS ORDERED: LIDOCAINE 1% LOCAL 20 ML VIAL ONE (10:33)
[2023-10-17] MEDS ORDERED: HEPARIN SOD (PORCINE) 5,000 UNITS/ML VIAL ONE (10:34)
[2023-10-17] MEDS ORDERED: fentaNYL citrate PF 100 MCG/2 ML VIAL ONE (10:53)
[2023-10-17] MEDS ORDERED: MIDAZOLAM HCL 1 MG/ML 2ML VIAL ONE (10:53)
--- NOTE | 2023-10-17 11:26 | Operative Report ---
Post Operative Report Pre & Post Diagnosis Operation Date: 10/17/23 10:50 Pre-Op Diagnosis: End Stage Renal Disease Post-Op Diagnosis: End Stage Renal Disease I identified the patient and participated in the time-out.: Yes Procedure Operation Date: 10/17/23 10:50 Actual Procedures p Insertion Perm Catheter, Right Jugular Vein Approach, Ultrasound Localization of Right Jugular Vein, Fluoscopy for Positioning, (Right) removal of temporary dialysis catheter- Stefan Godinez MD Surgeon Stefan Godinez MD Slunk Skinner none Estimated Blood Loss 3 Findings Consistent with Post-Op Diagnosis Specimens none Anesthesia Type Local Complications none Disposition Accompanied Patient To Recovery: No Disposition: Recovery Room Indications This is an 83-year-old gentleman who is in need of dialysis. He was admitted 2 weeks prior to this for the catheter insertion however he was COVID-positive was hypotensive and septic at that time. A temporary line was placed and he had dialysis through a temporary catheter. He is now to have a PermCath inserted instead of the temporary line..cons Description of Procedure Patient was taken to the angio suite and placed in the supine position. The sutures were removed from the temporary dialysis catheter which was in the right IJ and the dialysis catheter was removed. Pressure was applied and adequate was stasis was obtained. The right side of the neck and chest wall were prepped and draped in a sterile manner. The patient was identified and a timeout performed. Local anesthesia was then administered to the appropriate areas of the neck and chest wall. Ultrasound was then used to locate the right internal jugular vein. The vein compressed easily, had no filing defects, and was p atent. The vein was then punctured under direct ultrasound imaging. A guidewire was then passed centrally under fluoroscopic imaging. A stab wound was then made in the anterior chest wall and a 19 cm permcath was passed from the stab wound on the chest wall to the puncture site on the neck. The puncture site was then dilated till the 14Fr peel away sheath was inserted. The permcath was then inserted through the sheath to a central position in the distal superior vena cava. The peel away sheath was then removed. The catheter was then sutured in place using nylon sutures. The puncture was then closed using a 4-0 Vicryl subcuticular suture. Dermabond was used for a dressing on the puncture site. Both ports aspirated and flushed easily and were then packed with heparin. A sterile dressing was applied to the catheter. The patient left the operation room in satisfactory condition and tolerated the procedure well. All needle and sponge counts were correct at the end of the procedure. I attest to the content of the Intraoperative Record and any orders documented therein. Any exceptions are noted below.
--- NOTE | 2023-10-17 14:12 | Hospitalist Progress Note ---
Date of Service October 17, 2023 Assessment & Plan (1) Acute kidney injury superimposed on CKD: Plan: Nephrology consult and recommendations appreciated. He is now receiving hemodialysis. He had a tunneled dialysis catheter placed today, October 18. He was seen today while in hemodialysis (2) Atrial fibrillation with rapid ventricular response: Plan: Initially converted to normal sinus rhythm with amiodarone infusion but now is back in atrial fibrillation with a controlled rate. 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 Telemetry. Appreciate cardiology consultation and recommendations. Continue amiodarone, Eliquis, metoprolol. Aspirin has been discontinued (3) COVID-19: Plan: Nasal swab positivity. Asymptomatic. Isolation was discontinued on October 15 (4) Hypotension: Plan: He is now off pressor support. Midodrine was also discontinued earlier this hospital stay but needed to be restarted on October 16 due to recurrent hypotension. (5) Pneumonia: Plan: Bibasilar opacity seen on chest x-ray earlier this admission. However, this appears to be a combination of fluid overload and atelectasis. Actual pneumonia infection ruled out. Repeat chest x-ray done on October 15 was negative for infiltrate or CHF. (6) Acute hypoxemic respiratory failure: Plan: Resolved. He is now on room air (7) Cardiomyopathy: Plan: Recent anterior wall MA with known ischemic cardiomyopathy. Most recent echo revealed ejection fraction 40%. Medical management (8) Acute combined systolic and diastolic CHF, NYHA class 3: Plan: Continue hemodialysis per nephrology schedule. Repeat chest x-ray done on October 15 revealed complete resolution of CHF . (9) Controlled type 2 diabetes mellitus with kidney complication, with long-term current use of insulin: Plan: ADA diet. Sliding scale coverage. Plan Hopeful return to [facility] tomorrowOctober 18 Admission and Anticipated Discharge Date Admission Date: October 03, 2023 Subjective The patient was seen while in dialysis. He had a tunneled dialysis catheter placed in the right anterior upper chest wall earlier today, October 17. This is working without incident. He is medically stable. Hopeful discharge back to [facility] tomorrow, October 18 Review of Systems 2 Review of Systems: Constitutional-no fever or chills ENT-no blurred vision, no double vision, no epistaxis, no sore throat Respiratory-no cough, no wheezing, no shortness of breath Cardiac-no palpitations, no chest pain, no syncope GI-no nausea, vomiting, diarrhea, melena, hematochezia -no urinary retention, no urinary incontinence, no dysuria, no hematuria Musculoskeletal-no joint pain, no muscle tenderness Skin-no bruising, no rashes, no pruritus Neuro-no isolated weakness, no paresthesia Psych-no depression, no anxiety Physical Exam 2 Physical Exam: General-alert, no fevers, no chills HEENT-head atraumatic and normocephalic, pupils equal and reactive to light, extraocular muscles intact. Dialysis catheter in place in the right IJ vein Neck-no lymphadenopathy or thyromegaly, trachea midline Chest-clear to auscultation. No rales, wheezing or rhonchi Cardiac-regular rate and rhythm, normal S1 and S2 Abdomen-normal bowel sounds, nontender, no hepatosplenomegaly Extremities-no cyanosis, clubbing, or edema Neuro-cranial nerves II through XII intact, motor and sensory function within normal limits, strength symmetrical with generalized weakness, no focal deficits Psych-normal affect, normal mood Results & Data Results & Data Vital Signs (Past 12 Hours) Vital Signs Temp Pulse Pulse Pulse Resp BP Pulse Ox 10/17/23 12:33 86 19 117/74 94 10/17/23 12:00 86 18 113/64 94 10/17/23 11:34 36.6 C 76 19 114/66 95 10/17/23 11:20 74 20 120/72 100 10/17/23 11:15 72 20 116/59 L 100 10/17/23 11:10 72 20 113/68 100 10/17/23 11:05 72 20 111/60 100 10/17/23 11:00 70 20 90/52 L 100 10/17/23 10:55 76 20 107/64 100 10/17/23 10:50 72 20 118/69 100 10/17/23 09:54 36.9 C 76 20 101/58 L 93 10/17/23 08:40 36.7 C 82 18 113/70 94 10/17/23 07:12 61 10/17/23 03:00 36.4 C L 70 21 98/55 L 92 O2 Del Method O2 Flow Rate 10/17/23 12:33 Room Air 10/17/23 12:00 Room Air 10/17/23 11:34 Room Air 10/17/23 11:20 Oxymask 4 10/17/23 11:15 Oxymask 4 10/17/23 11:10 Oxymask 4 10/17/23 11:05 Oxymask 4 10/17/23 11:00 Oxymask 4 10/17/23 10:55 Oxymask 4 10/17/23 10:50 Oxymask 4 10/17/23 09:54 Room Air 10/17/23 08:40 Room Air 10/17/23 07:12 10/17/23 03:00 Room Air Laboratory Results 10/17/23 06:06 10/17/23 06:06 PG Care Time/CCT Total # of Minutes Spent Total Time Spent with Patient: Total time spent is greater than 50% in coordination of care (as documented) at patient's floor/unit and/or counseling patient: Coding Level of Care Code 25772 SUB INP/OBS CARE 2/35MIN Diagnoses Acute kidney injury superimposed on CKD N17.9; N18.9 Atrial fibrillation with rapid ventricular response I48.91 COVID-19 U07.1 Hypotension I95.9 Hypotension type: unspecified hypotension type Pneumonia J18.9 Acute hypoxemic respiratory failure J96.01 Cardiomyopathy I42.9 Acute combined systolic and diastolic CHF, 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 Controlled type 2 diabetes mellitus with kidney complication, with long-term current use of insulin E11.29; Z79.4 (4) Hypotension Hypotension type: unspecified hypotension type Qualified Code(s): I95.9 - Hypotension, unspecified
[2023-10-17] MEDS: METOPROLOL TARTRATE 25 MG TAB PO SCH ×3 (15:41→20:08)
[2023-10-17] MEDS: MIDODRINE HCL 2.5 MG TAB PO SCH ×3 (15:41→16:53)
[2023-10-17] MEDS: SEVELAMER HCL 800 MG TABLET PO SCH ×3 (15:41→16:32)
[2023-10-17] MEDS: PANTOprazole 40 MG TAB PO SCH (16:31)
[2023-10-17] MEDS: NEPHROCAPS PO SCH (16:31)
[2023-10-17] MEDS: FERROUS SULFATE 325 MG TAB PO SCH (16:31)
[2023-10-17] MEDS: MEGESTROL ACETATE 40 MG TAB PO SCH (16:31)
[2023-10-17] MEDS: AMIODARONE 200 MG TAB PO SCH ×2 (16:32→16:39)
[2023-10-17] MEDS: ATORVASTATIN 40 MG TAB PO SCH (16:32)
[2023-10-17] MEDS: DOCUSATE SODIUM 100 MG CAP PO SCH ×2 (16:32→20:08)
[2023-10-17] MEDS: APIXABAN 2.5 MG TAB PO SCH (20:08)
[2023-10-17] MEDS: QUEtiapine FUMARATE 25 MG TABLET PO SCH (20:08)
[2023-10-17] MEDS: SENNA 8.6 MG TAB PO SCH (20:09)
[2023-10-18] MEDS: LEVOTHYROXINE SODIUM 50 MCG TABLET PO SCH (05:25)
[2023-10-18 07:16] LABS: Basophils # (auto) 0.03 K/uL (0.00-0.20); Basophils % (auto) 0.6 %; Eosinophils # (auto) 0.09 K/uL (0.00-0.50); Eosinophils % (auto) 1.9 %; Hematocrit (blood only) 37.2 % (42.0-52.0); Hemoglobin 11.4 g/dl (14.0-18.0); Immature Granulocytes # (auto) 0.01 K/uL (0.01-0.20); Immature Granulocytes % (auto) 0.2 %; Lymphocytes # (auto) 0.99 K/uL (1.20-3.40); Lymphocytes % (auto) 20.4 %; Mean Corpuscular Hemoglobin 28.2 pg (25.0-34.0); Mean Corpuscular Hgb Conc 30.6 g/dL (32.0-36.0); Mean Corpuscular Volume 92.1 fL (80.0-100.0); Mean Platelet Volume 10.3 fL (9.4-12.4); Monocytes # (auto) 0.49 K/uL (0.11-0.59); Monocytes % (auto) 10.1 %; Neutrophils # (auto) 3.24 K/uL (1.40-6.50); Neutrophils % (auto) 66.8 %; Platelet Count 251 K/uL (130-400); RDW Coefficient of Variation 14.9 % (11.5-14.5); RDW Standard Deviation 50.4 fL (36.4-46.3); Red Blood Count 4.04 M/uL (4.70-6.10); White Blood Count 4.85 K/ul (4.8-10.8)
[2023-10-18 07:37] LABS: BUN Creatinine Ratio 5.7 (10-20); Calcium 10.5 mg/dl (8.6-10.3); Creatinine Clr Calc Pharmacy 11.5 ml/min; Est GFR (African American) 11.3 ml/min; Est GFR (Non-African American) 9.8 ml/min; Potassium 4.1 mmol/L (3.5-5.1)
[2023-10-18] MEDS: INSULIN ASPART PER UNIT CHARGE SC SCH ×4 (08:00→20:05)
[2023-10-18] MEDS: AMIODARONE 200 MG TAB PO SCH ×2 (08:01→17:39)
[2023-10-18] MEDS: MIDODRINE HCL 2.5 MG TAB PO SCH ×3 (08:01→17:40)
[2023-10-18] MEDS: APIXABAN 2.5 MG TAB PO SCH ×2 (08:02→20:42)
[2023-10-18] MEDS: SEVELAMER HCL 800 MG TABLET PO SCH ×3 (08:02→17:40)
[2023-10-18] MEDS: CLOPIDOGREL BISULFATE 75 MG TAB PO SCH (08:03)
[2023-10-18] MEDS: FLUTICASONE PROPIONATE NA SPR 16 GM BTL NAE SCH ×2 (08:04→20:42)
[2023-10-18] MEDS: DOCUSATE SODIUM 100 MG CAP PO SCH ×2 (08:11→20:42)
[2023-10-18] MEDS: POLYETHYLENE (MIRALAX) 17 GM PACK PO PRN (08:11)
[2023-10-18] MEDS: LANTUS PER UNIT CHARGE SC SCH ×2 (08:11→20:06)
--- NOTE | 2023-10-18 09:11 | Nephrology Progress Note ---
Date of Service October 18, 2023 Assessment & Plan (1) End stage renal disease: Plan: ESRD attributed to hypertension. Started HD 10/04/23. L BC AVF was successfully used on 10/11/2023 with 17 g needles but unfortunately we have not been able to cannulate since. Failed L RC AVF (created on 12/14). L BC AVF created 07/03/[address] Godinez. AVF will need to be transposed. Dr. Godinez placed a TDC 10/17/2023 which was used yesterday. The catheter worked well. Clearance has been acceptable. Volume status controlled. Electrolytes normal. Next HD planned for tomorrow. Midodrine has been restarted for hypotension. I suspect we may be able to wean this medication off in the future. Medications are appropriately dosed for kidney function. Sevelamer 1 tab QAC for hyperphosphatemia. (2) Anemia: Plan: Chronic stable. CATY therapy with HD PRN. (3) Ischemic cardiomyopathy: Plan: Hospitalized at [facility] 09/18/23-09/22/23 due to NSTEMI. 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 Medical management recommended by cardiology. Remains rhythm controlled with amiodarone for atrial fibrillation. (4) Physical deconditioning: Plan: Davin remains very debilitated. Anticipated discharge to [facility] today for rehab. [facility] nephrology will follow and provided oversight of HD at [facility]. He was started on Seroquel and Megace this admission to help with sleep and poor appetite. There has been improvement. Admission and Anticipated Discharge Date Admission Date: October 03, 2023 Subjective No acute events overnight. Davin tolerated HD well yesterday. No complications with treatment. TDC functioning well. Davin was sitting in his bedside chair this AM. He denies any complaints. He stills appears to have some confusion. He was repeating questions during our conversation but oriented x 3 and appropriate in his answers. Review of Systems Review of Systems: All systems reviewed & are unremarkable except as noted in HPI & below Physical Exam Constitutional: WD/WN, vitals as above + frail appearing; no acute distress Eyes: + anicteric sclerae ENMT: Mouth: oral mucous membranes not dry Neck: trachea midline and + thick neck RIJ TDC Respiratory: no respiratory distress Auscultation: lungs clear to auscultation bilaterally Cardiovascular: Rate/Rhythm: regular rate and regular rhythm Heart Sounds: normal S1 and normal S2 Extremities: + vascular access device (rt IJ temporary HD catheter.) and + AV fistula (left BC AVF with bruit.); no edema Skin: no rashes, warm and dry Neurologic: no focal motor deficits Psychiatric: Orientation: alert, oriented to place and cooperative Affect: + flat affect Results & Data Vital Signs (Past 12 Hours) Vital Signs Temp Pulse Pulse Resp BP Pulse Ox O2 Del Method 10/18/23 07:25 36.5 C 96 H 86 20 117/73 95 Room Air 10/17/23 23:00 36.6 C 79 21 112/67 93 Room Air Laboratory Results Laboratory Results - last 24 hr 10/17/23 10/17/23 10/17/23 09:52 11:35 16:37 WBC RBC Hgb Hct MCV MCH MCHC RDW Std Deviation RDW Coeff of Aysha Plt Count MPV Immature Gran % (Auto) Neut % (Auto) Lymph % (Auto) [place] % (Auto) Eos % (Auto) Baso % (Auto) Neut # (Auto) Lymph # (Auto) [place] # (Auto) Eos # (Auto) Baso # (Auto) Immature Gran # (Auto) Sodium Potassium Chloride Carbon Dioxide Anion Gap BUN Creatinine Est Cr Clr Drug Dosing Est GFR ( Amer) Est GFR (Non-Af Amer) BUN/Creatinine Ratio Glucose POC Glucose 110 H 122 H 109 H Calcium 10/17/23 10/18/23 10/18/23 20:34 06:54 07:27 WBC 4.85 RBC 4.04 L Hgb 11.4 L Hct 37.2 L MCV 92.1 MCH 28.2 MCHC 30.6 L RDW Std Deviation 50.4 H RDW Coeff of Aysha 14.9 H Plt Count 251 MPV 10.3 Immature Gran % (Auto) 0.2 Neut % (Auto) 66.8 Lymph % (Auto) 20.4 [place] % (Auto) 10.1 Eos % (Auto) 1.9 Baso % (Auto) 0.6 Neut # (Auto) 3.24 Lymph # (Auto) 0.99 L [place] # (Auto) 0.49 Eos # (Auto) 0.09 Baso # (Auto) 0.03 Immature Gran # (Auto) 0.01 Sodium 140 Potassium 4.1 Chloride 106 Carbon Dioxide 24 Anion Gap 10 BUN 29 H Creatinine 5.08 H* D Est Cr Clr Drug Dosing 11.5 Est GFR ( Amer) 11.3 Est GFR (Non-Af Amer) 9.8 BUN/Creatinine Ratio 5.7 L Glucose 131 H POC Glucose 173 H 126 H Calcium 10.5 H PG Care Time/CCT Total # of Minutes Spent Total Time Spent with Patient: Total time spent is greater than 50% in coordination of care (as documented) at patient's floor/unit and/or counseling patient: Coding Level of Care Code 40516 SUB INP/OBS CARE 3/50MIN Diagnoses End stage renal disease N18.6 Anemia due to stage 3 chronic kidney disease N18.3; D63.1 Anemia type: due to chronic kidney disease Chronic kidney disease stage: stage 3 (moderate) Ischemic cardiomyopathy I25.5 Physical deconditioning R53.81 (2) Anemia Anemia type: due to chronic kidney disease Chronic kidney disease stage: stage 3 (moderate) Qualified Code(s): N18.3 - Chronic kidney disease, stage 3 (moderate); D63.1 - Anemia in chronic kidney disease
[2023-10-18] MEDS: METOPROLOL TARTRATE 25 MG TAB PO SCH ×3 (11:23→20:42)
[2023-10-18] MEDS: MEGESTROL ACETATE 40 MG TAB PO SCH (11:23)
[2023-10-18] MEDS: ATORVASTATIN 40 MG TAB PO SCH (11:23)
[2023-10-18] MEDS: FERROUS SULFATE 325 MG TAB PO SCH (11:24)
[2023-10-18] MEDS: NEPHROCAPS PO SCH (11:24)
[2023-10-18] MEDS: PANTOprazole 40 MG TAB PO SCH (11:24)
--- NOTE | 2023-10-18 15:35 | Hospitalist Progress Note ---
Date of Service October 18, 2023 Assessment & Plan (1) Acute kidney injury superimposed on CKD: Plan: Nephrology consult and recommendations appreciated. He is now receiving hemodialysis. He had a tunneled dialysis catheter placed on October 18. The catheter functioned normally during dialysis on October 17. Insertion site is unremarkable. (2) Atrial fibrillation with rapid ventricular response: Plan: Initially converted to normal sinus rhythm with amiodarone infusion but now is back in atrial fibrillation with a controlled rate. 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 Telemetry. Appreciate cardiology consultation and recommendations. Continue amiodarone, Eliquis, metoprolol. Aspirin has been discontinued (3) COVID-19: Plan: Nasal swab positivity. Asymptomatic. Isolation was discontinued on October 15 (4) Hypotension: Plan: He is now off pressor support. Midodrine was also discontinued earlier this hospital stay but needed to be restarted on October 16 due to recurrent hypotension. Blood pressure is now stable (5) Pneumonia: Plan: Bibasilar opacity seen on chest x-ray earlier this admission. However, this appears to be a combination of fluid overload and atelectasis. Actual pneumonia infection ruled out. Repeat chest x-ray done on October 15 was negative for infiltrate or CHF. (6) Acute hypoxemic respiratory failure: Plan: Resolved. He is now on room air (7) Cardiomyopathy: Plan: Recent anterior wall [place] with known ischemic cardiomyopathy. Most recent echo revealed ejection fraction 40%. Medical management (8) Acute combined systolic and diastolic CHF, NYHA class 3: Plan: Continue hemodialysis per nephrology schedule. Repeat chest x-ray done on October 15 revealed complete resolution of CHF . (9) Controlled type 2 diabetes mellitus with kidney complication, with long-term current use of insulin: Plan: ADA diet. Sliding scale coverage. Plan Discharge to [facility] when dialysis bed becomes available Admission and Anticipated Discharge Date Admission Date: October 03, 2023 Subjective Alert and oriented. Pleasant. No complaints. Apparently there are no dialysis beds available at [facility] today, October 18. Tunneled dialysis catheter was placed yesterday, October 17, and the insertion site is unremarkable. Review of Systems 2 Review of Systems: Constitutional-no fever or chills ENT-no blurred vision, no double vision, no epistaxis, no sore throat Respiratory-no cough, no wheezing, no shortness of breath Cardiac-no palpitations, no chest pain, no syncope GI-no nausea, vomiting, diarrhea, melena, hematochezia -no urinary retention, no urinary incontinence, no dysuria, no hematuria Musculoskeletal-no joint pain, no muscle tenderness Skin-no bruising, no rashes, no pruritus Neuro-no isolated weakness, no paresthesia Psych-no depression, no anxiety Physical Exam 2 Physical Exam: General-alert, no fevers, no chills HEENT-head atraumatic and normocephalic, pupils equal and reactive to light, extraocular muscles intact. Dialysis catheter in place in the right IJ vein Neck-no lymphadenopathy or thyromegaly, trachea midline Chest-clear to auscultation. No rales, wheezing or rhonchi Cardiac-regular rate and rhythm, normal S1 and S2 Abdomen-normal bowel sounds, nontender, no hepatosplenomegaly Extremities-no cyanosis, clubbing, or edema Neuro-cranial nerves II through XII intact, motor and sensory function within normal limits, strength symmetrical with generalized weakness, no focal deficits Psych-normal affect, normal mood Results & Data Results & Data Vital Signs (Past 12 Hours) Vital Signs Temp Pulse Pulse Pulse Resp BP Pulse Ox 10/18/23 11:00 36.6 C 98 H 74 20 111/58 L 98 10/18/23 08:00 69 10/18/23 07:25 36.5 C 96 H 86 20 117/73 95 O2 Del Method 10/18/23 11:00 Room Air 10/18/23 08:00 10/18/23 07:25 Room Air Laboratory Results 10/18/23 06:54 10/18/23 06:54 PG Care Time/CCT Total # of Minutes Spent Total Time Spent with Patient: Total time spent is greater than 50% in coordination of care (as documented) at patient's floor/unit and/or counseling patient: Coding Level of Care Code 78275 SUB INP/OBS CARE 2/35MIN Diagnoses Acute kidney injury superimposed on CKD N17.9; N18.9 Atrial fibrillation with rapid ventricular response I48.91 COVID-19 U07.1 Hypotension I95.9 Hypotension type: unspecified hypotension type Pneumonia J18.9 Acute hypoxemic respiratory failure J96.01 Cardiomyopathy I42.9 Acute combined systolic and diastolic CHF, 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 Controlled type 2 diabetes mellitus with kidney complication, with long-term current use of insulin E11.29; Z79.4 (4) Hypotension Hypotension type: unspecified hypotension type Qualified Code(s): I95.9 - Hypotension, unspecified
[2023-10-18] MEDS: QUEtiapine FUMARATE 25 MG TABLET PO SCH (20:42)
[2023-10-18] MEDS: SENNA 8.6 MG TAB PO SCH (20:42)
[2023-10-19] MEDS: LEVOTHYROXINE SODIUM 50 MCG TABLET PO SCH (05:57)
[2023-10-19 06:35] LABS: Hematocrit (blood only) 39.3 % (42.0-52.0); Hemoglobin 11.5 g/dl (14.0-18.0)
[2023-10-19 06:57] LABS: Albumin Level 3.2 gm/dl (3.4-5.0); BUN Creatinine Ratio 6.1 (10-20); Calcium 10.9 mg/dl (8.6-10.3); Est GFR (African American) 8.4 ml/min; Est GFR (Non-African American) 7.2 ml/min; Phosphorus 3.7 mg/dl (2.5-4.9); Potassium 4.4 mmol/L (3.5-5.1)
[2023-10-19] MEDS: LANTUS PER UNIT CHARGE SC SCH ×2 (08:00→20:59)
[2023-10-19] MEDS: SEVELAMER HCL 800 MG TABLET PO SCH ×3 (08:30→17:23)
[2023-10-19] MEDS: MIDODRINE HCL 2.5 MG TAB PO SCH ×3 (08:31→17:22)
[2023-10-19] MEDS: AMIODARONE 200 MG TAB PO SCH ×2 (08:31→17:23)
[2023-10-19] MEDS: DOCUSATE SODIUM 100 MG CAP PO SCH ×2 (08:31→20:29)
[2023-10-19] MEDS: FERROUS SULFATE 325 MG TAB PO SCH (08:31)
[2023-10-19] MEDS: PANTOprazole 40 MG TAB PO SCH (08:31)
[2023-10-19] MEDS: NEPHROCAPS PO SCH (08:31)
[2023-10-19] MEDS: FLUTICASONE PROPIONATE NA SPR 16 GM BTL NAE SCH ×2 (08:32→20:30)
[2023-10-19] MEDS: ATORVASTATIN 40 MG TAB PO SCH (08:32)
[2023-10-19] MEDS: MEGESTROL ACETATE 40 MG TAB PO SCH (08:32)
[2023-10-19] MEDS: INSULIN ASPART PER UNIT CHARGE SC SCH ×4 (08:33→20:58)
--- NOTE | 2023-10-19 08:33 | Hospitalist Progress Note ---
Date of Service October 19, 2023 Assessment & Plan (1) Acute kidney injury superimposed on CKD: Plan: Nephrology consult and now receiving hemodialysis. tunneled dialysis catheter placed on October 18. The catheter functioned normally during dialysis on October 19. Insertion site is unremarkable. (2) Atrial fibrillation with rapid ventricular response: Plan: Initially converted to normal sinus rhythm with amiodarone infusion but now is back in atrial fibrillation with a controlled rate. 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 Appreciate cardiology consultation and recommendations. Continue amiodarone, Eliquis, metoprolol. Aspirin has been discontinued (3) COVID-19: Plan: Nasal swab positivity. Asymptomatic. Isolation was discontinued on October 15 (4) Hypotension: Plan: Midodrine was also discontinued earlier this hospital stay but needed to be restarted on October 16 due to recurrent hypotension. Blood pressure is now stable (5) Pneumonia: Plan: Bibasilar opacity seen on chest x-ray earlier this admission. However, this appears to be a combination of fluid overload and atelectasis. Actual pneumonia infection ruled out. Repeat chest x-ray done on October 15 was negative for infiltrate or CHF. (6) Acute hypoxemic respiratory failure: Plan: Resolved. He is now on room air (7) Cardiomyopathy: Plan: Recent anterior wall [place] with known ischemic cardiomyopathy. Most recent echo revealed ejection fraction 40%. HFrEF Medical management (8) Acute combined systolic and diastolic CHF, NYHA class 3: Plan: Continue hemodialysis per nephrology schedule. Repeat chest x-ray done on October 15 revealed complete resolution of CHF . (9) Controlled type 2 diabetes mellitus with kidney complication, with long-term current use of insulin: Plan: ADA diet. Sliding scale coverage. Plan Discharge to [facility] when dialysis bed becomes available Admission and Anticipated Discharge Date Admission Date: October 03, 2023 Subjective pleasant gentleman seen in dialysis, no active concerns tolerating dialysis at this time awaiting a dialysis bed at [facility] Physical Exam Physical Exam: awake oriented x 2 sleepy cardiac is regular Results & Data Results & Data Vital Signs (Past 12 Hours) Vital Signs Temp Pulse Resp BP Pulse Ox O2 Del Method 10/19/23 03:48 99.1 F 77 20 90/62 L 94 Room Air 10/18/23 22:11 98.4 F 85 18 121/52 L 94 Room Air PG Care Time/CCT Total # of Minutes Spent Total Time Spent with Patient: Total time spent is greater than 50% in coordination of care (as documented) at patient's floor/unit and/or counseling patient: Coding Level of Care Code 32232 SUB INP/OBS CARE 2/35MIN Diagnoses Acute kidney injury superimposed on CKD N17.9; N18.9 Atrial fibrillation with rapid ventricular response I48.91 COVID-19 U07.1 Hypotension I95.9 Hypotension type: unspecified hypotension type Pneumonia J18.9 Acute hypoxemic respiratory failure J96.01 Cardiomyopathy I42.9 Acute combined systolic and diastolic CHF, 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 Controlled type 2 diabetes mellitus with kidney complication, with long-term current use of insulin E11.29; Z79.4 (4) Hypotension Hypotension type: unspecified hypotension type Qualified Code(s): I95.9 - Hypotension, unspecified
[2023-10-19] MEDS: METOPROLOL TARTRATE 25 MG TAB PO SCH ×3 (09:00→20:30)
--- NOTE | 2023-10-19 10:37 | Nephrology Progress Note ---
Date of Service October 19, 2023 Assessment & Plan (1) End stage renal disease: Plan: ESRD attributed to hypertension. Started HD 10/04/23. L BC AVF was successfully used on 10/11/2023 with 17 g needles but unfortunately we have not been able to cannulate since. L BC AVF created 07/03/[address] Godinez. AVF will need to be transposed. There is a small resolving hematoma. The fistula has good thrill and bruit. Failed L RC AVF (created on 12/14). Dr. Godinez placed a TDC 10/17/2023 which is functioning well. Orders for HD today were entered into the EHR and reviewed with mallet cutter. Davin is tolerating hemodialysis well. Midodrine has been restarted for hypotension. I suspect we may be able to wean this medication off in the future. Medications are appropriately dosed for kidney function. Sevelamer 1 tab QAC for hyperphosphatemia. (2) Anemia: Plan: Chronic stable. CATY therapy with HD PRN. (3) Ischemic cardiomyopathy: Plan: Hospitalized at [facility] 09/18/23-09/22/23 due to NSTEMI. 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 Medical management recommended by cardiology. Remains rhythm controlled with amiodarone for atrial fibrillation. (4) Physical deconditioning: Plan: Davin remains very debilitated. Anticipated discharge to [facility] for rehab when a bed is available. [facility] nephrology will follow and provided oversight of HD at [facility]. He was started on Seroquel and Megace this admission to help with sleep and poor appetite. There has been improvement. Admission and Anticipated Discharge Date Admission Date: October 03, 2023 Subjective No acute events overnight. Davin was seen and evaluated prior to and during hemodialysis this AM. He is sleepy this morning but otherwise well. No acute complaints or concerns reported. Davin notes that his urine output is reduced. He remains oriented and answering questions appropriately but intermittent confused. Appetite remains poor. Review of Systems Review of Systems: All systems reviewed & are unremarkable except as noted in HPI & below Physical Exam Constitutional: WD/WN, vitals as above + frail appearing; no acute distress Eyes: + anicteric sclerae ENMT: Mouth: + dry oral mucous membranes Neck: trachea midline and + thick neck Respiratory: no respiratory distress Auscultation: lungs clear to auscultation bilaterally Cardiovascular: Rate/Rhythm: regular rate and regular rhythm Heart Sounds: normal S1 and normal S2 Extremities: + vascular access device (rt IJ temporary HD catheter.) and + AV fistula (left BC AVF with bruit.); no edema Skin: no rashes, warm and dry Neurologic: no focal motor deficits Psychiatric: Orientation: alert, oriented to place and cooperative Affect: + depressed affect Results & Data Vital Signs (Past 12 Hours) Vital Signs Temp Pulse Resp BP Pulse Ox O2 Del Method 10/19/23 09:00 36.4 C L 87 10/19/23 03:48 37.3 C 77 20 90/62 L 94 Room Air Laboratory Results Laboratory Results - last 24 hr 10/18/23 10/18/23 10/18/23 11:36 16:00 19:58 Hgb Hct Sodium Potassium Chloride Carbon Dioxide Anion Gap BUN Creatinine Est Cr Clr Drug Dosing Est GFR ( Amer) Est GFR (Non-Af Amer) BUN/Creatinine Ratio Glucose POC Glucose 168 H 114 H 100 H Calcium Phosphorus Albumin 10/19/23 10/19/23 10/19/23 06:03 07:33 07:34 Hgb 11.5 L Hct 39.3 L Sodium 140 Potassium 4.4 Chloride 106 Carbon Dioxide 22 Anion Gap 12 H BUN 40 H Creatinine 6.51 H* D Est Cr Clr Drug Dosing 9.0 Est GFR ( Amer) 8.4 Est GFR (Non-Af Amer) 7.2 BUN/Creatinine Ratio 6.1 L Glucose 127 H POC Glucose 69 L* 134 H Calcium 10.9 H Phosphorus 3.7 Albumin 3.2 L 10/19/23 07:35 Hgb Hct Sodium Potassium Chloride Carbon Dioxide Anion Gap BUN Creatinine Est Cr Clr Drug Dosing Est GFR ( Amer) Est GFR (Non-Af Amer) BUN/Creatinine Ratio Glucose POC Glucose 109 H Calcium Phosphorus Albumin PG Care Time/CCT Total # of Minutes Spent Total Time Spent with Patient: Total time spent is greater than 50% in coordination of care (as documented) at patient's floor/unit and/or counseling patient: Coding Level of Care Code 43589 SUB INP/OBS CARE 3/50MIN Diagnoses End stage renal disease N18.6 Anemia due to stage 3 chronic kidney disease N18.3; D63.1 Anemia type: due to chronic kidney disease Chronic kidney disease stage: stage 3 (moderate) Ischemic cardiomyopathy I25.5 Physical deconditioning R53.81 (2) Anemia Anemia type: due to chronic kidney disease Chronic kidney disease stage: stage 3 (moderate) Qualified Code(s): N18.3 - Chronic kidney disease, stage 3 (moderate); D63.1 - Anemia in chronic kidney disease
[2023-10-19] MEDS: APIXABAN 2.5 MG TAB PO SCH ×2 (14:00→20:30)
[2023-10-19] MEDS: CLOPIDOGREL BISULFATE 75 MG TAB PO SCH (14:00)
[2023-10-19] MEDS: SENNA 8.6 MG TAB PO SCH (20:29)
[2023-10-19] MEDS: QUEtiapine FUMARATE 25 MG TABLET PO SCH (20:30)
[2023-10-20] MEDS: LEVOTHYROXINE SODIUM 50 MCG TABLET PO SCH (05:36)
[2023-10-20] MEDS: LANTUS PER UNIT CHARGE SC SCH ×2 (08:43→21:32)
[2023-10-20] MEDS: MEGESTROL ACETATE 40 MG TAB PO SCH (08:44)
[2023-10-20] MEDS: PANTOprazole 40 MG TAB PO SCH (08:44)
[2023-10-20] MEDS: FERROUS SULFATE 325 MG TAB PO SCH (08:44)
[2023-10-20] MEDS: SEVELAMER HCL 800 MG TABLET PO SCH ×3 (08:44→17:40)
[2023-10-20] MEDS: CLOPIDOGREL BISULFATE 75 MG TAB PO SCH (08:44)
[2023-10-20] MEDS: INSULIN ASPART PER UNIT CHARGE SC SCH ×5 (08:44→21:26)
[2023-10-20] MEDS: DOCUSATE SODIUM 100 MG CAP PO SCH ×2 (08:45→21:32)
[2023-10-20] MEDS: METOPROLOL TARTRATE 25 MG TAB PO SCH ×3 (08:45→21:32)
[2023-10-20] MEDS: ATORVASTATIN 40 MG TAB PO SCH (08:45)
[2023-10-20] MEDS: NEPHROCAPS PO SCH (08:45)
[2023-10-20] MEDS: APIXABAN 2.5 MG TAB PO SCH ×2 (08:45→21:32)
[2023-10-20] MEDS: AMIODARONE 200 MG TAB PO SCH ×2 (08:45→17:39)
[2023-10-20] MEDS: MIDODRINE HCL 2.5 MG TAB PO SCH ×3 (08:45→17:40)
[2023-10-20] MEDS: FLUTICASONE PROPIONATE NA SPR 16 GM BTL NAE SCH ×2 (08:46→21:32)
--- NOTE | 2023-10-20 08:47 | Nephrology Progress Note ---
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 Godinez. AVF will need to be transposed * 1st HD 10/04/23 via temporary catheter * R IJ TCC placed 10/17/[address] Godinez * Await am labs. Volume status is acceptable. No acute indication for HD at this time (2) Hypotension: Plan: * Remains on Midodrine therapy (3) Atrial fibrillation with rapid ventricular response: Plan: * Remains on Metoprolol for rate control, Amiodarone and Apixaban therapy (4) Ischemic cardiomyopathy: Plan: * 09/15 NSTEMI * 09/19/23 cardiac catheterization - severe disease involving the LAD and left circumflex. Medical management recommended by cardiology (5) Anemia: Plan: * Hgb 11.5. No acute indication for CATY at this time (6) Physical deconditioning: Plan: * Awaiting transfer back to [facility] for inpatient PT when a bed is available (7) COVID-19: Plan: * Admitted w/ COVID pneumonia - resolved Admission and Anticipated Discharge Date Admission Date: October 03, 2023 Subjective Mr. Gaviria was evaluated in his hospital room this morning. Although he reports a good appetite, staff combat information center officer reports that his oral intake remains relatively poor. Mr. Gaviria was dialyzed yesterday via his R IJ TCC for 780 cc UF. There were no complications. He voices no new medical concerns at this time Review of Systems Constitutional: no fever Eyes: no problem reported Ear, Nose, Mouth, Throat: no problem reported Respiratory: no cough and no dyspnea Cardiovascular: no chest pain Gastrointestinal: no abdominal pain, no nausea, no vomiting and no diarrhea/loose stools Physical Exam Constitutional: not in distress Eyes: PERRL, conjunctivae normal, anicteric sclerae ENMT: external ear and nose normal, oropharynx normal Neck: trachea midline, no thyromegaly Respiratory: normal respiratory effort, lungs clear to auscultation Cardiovascular: Rate/Rhythm: + irregularly irregular Extremities: no edema Gastrointestinal (Abdomen): normal bowel sounds, soft, nontender, no hepatosplenomegaly Neurologic: awake; not confused Results & Data Vital Signs (Past 12 Hours) Vital Signs Temp Pulse Pulse Pulse Resp BP Pulse Ox 01/27/24 08:35 36.9 C 88 18 110/68 93 10/20/23 07:25 84 10/19/23 22:56 36.5 C 81 18 99/67 L 95 10/19/23 21:59 79 O2 Del Method 10/20/23 08:35 Room Air 10/20/23 07:25 10/19/23 22:56 Room Air 10/19/23 21:59 Laboratory Results Laboratory Results - last 24 hr 10/19/23 10/19/23 10/19/23 13:22 16:53 20:36 POC Glucose 102 H 129 H 148 H 10/20/23 07:26 POC Glucose 128 H PG Care Time/CCT Total # of Minutes Spent Total Time Spent with Patient: Total time spent is greater than 50% in coordination of care (as documented) at patient's floor/unit and/or counseling patient: Coding Level of Care Code 50660 SUB INP/OBS CARE 3/50MIN Diagnoses End stage renal disease N18.6 Hypotension I95.9 Hypotension type: unspecified hypotension type Atrial fibrillation with rapid ventricular response I48.91 Ischemic cardiomyopathy I25.5 Anemia due to stage 3 chronic kidney disease N18.3; D63.1 Anemia type: due to chronic kidney disease Chronic kidney disease stage: stage 3 (moderate) Physical deconditioning R53.81 COVID-19 U07.1 (2) Hypotension Hypotension type: unspecified hypotension type Qualified Code(s): I95.9 - Hypotension, unspecified (5) Anemia Anemia type: due to chronic kidney disease Chronic kidney disease stage: stage 3 (moderate) Qualified Code(s): N18.3 - Chronic kidney disease, stage 3 (moderate); D63.1 - Anemia in chronic kidney disease
[2023-10-20 09:44] LABS: BUN Creatinine Ratio 4.9 (10-20); Calcium 10.6 mg/dl (8.6-10.3); Creatinine Clr Calc Pharmacy 11.9 ml/min; Est GFR (African American) 11.9 ml/min; Est GFR (Non-African American) 10.3 ml/min; Potassium 4.3 mmol/L (3.5-5.1)
[2023-10-20] MEDS: QUEtiapine FUMARATE 25 MG TABLET PO SCH (21:32)
[2023-10-20] MEDS: SENNA 8.6 MG TAB PO SCH (21:32)
--- NOTE | 2023-10-20 22:38 | Hospitalist Progress Note ---
Date of Service October 20, 2023 Assessment & Plan (1) Acute kidney injury superimposed on CKD: Plan: Nephrology consult and now receiving hemodialysis. tunneled dialysis catheter placed on October 18. The catheter functioned normally during dialysis on October 19. Insertion site is unremarkable. (2) Atrial fibrillation with rapid ventricular response: Plan: Initially converted to normal sinus rhythm with amiodarone infusion but now is back in atrial fibrillation with a controlled rate. 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 Appreciate cardiology consultation and recommendations. Continue amiodarone, Eliquis, metoprolol. Aspirin has been discontinued HR remains controlled on 10/20 Labs reviewed on 10/20 (3) COVID-19: Plan: Nasal swab positivity. Asymptomatic. Isolation was discontinued on October 15 (4) Hypotension: Plan: Midodrine was also discontinued earlier this hospital stay but needed to be restarted on October 16 due to recurrent hypotension. Blood pressure is now stable (5) Pneumonia: Plan: Bibasilar opacity seen on chest x-ray earlier this admission. However, this ap pears to be a combination of fluid overload and atelectasis. Actual pneumonia infection ruled out. Repeat chest x-ray done on October 15 was negative for infiltrate or CHF. (6) Acute hypoxemic respiratory failure: Plan: Resolved. He is now on room air (7) Cardiomyopathy: Plan: Recent anterior wall HI with known ischemic cardiomyopathy. Most recent echo revealed ejection fraction 40%. HFrEF Medical management (8) Acute combined systolic and diastolic CHF, NYHA class 3: Plan: Continue hemodialysis per nephrology schedule. Repeat chest x-ray done on October 15 revealed complete resolution of CHF . (9) Controlled type 2 diabetes mellitus with kidney complication, with long-term current use of insulin: Plan: ADA diet. Sliding scale coverage. Plan Discharge to [facility] when dialysis bed becomes available Admission and Anticipated Discharge Date Admission Date: October 03, 2023 Subjective Patient reports no new symptoms. Family at bedside. Review of Systems Review of Systems: All systems reviewed & are unremarkable except as noted in HPI & below Physical Exam Physical Exam: awake oriented x 2 cardiac is regular Results & Data Results & Data Vital Signs (Past 12 Hours) Vital Signs Temp Pulse Pulse Pulse Resp BP Pulse Ox 10/20/23 19:52 36.4 C L 67 18 97/57 L 94 10/20/23 16:38 37.0 C 66 19 108/74 97 10/20/23 14:50 78 10/20/23 14:33 73 101/63 10/20/23 12:27 36.9 C 83 18 105/63 95 O2 Del Method 10/20/23 19:52 Room Air 10/20/23 16:38 Room Air 10/20/23 14:50 10/20/23 14:33 10/20/23 12:27 Room Air PG Care Time/CCT Total # of Minutes Spent Total Time Spent with Patient: Total time spent is greater than 50% in coordination of care (as documented) at patient's floor/unit and/or counseling patient: Coding Level of Care Code 20287 SUB INP/OBS CARE 2/35MIN Diagnoses Acute kidney injury superimposed on CKD N17.9; N18.9 Atrial fibrillation with rapid ventricular response I48.91 COVID-19 U07.1 Hypotension I95.9 Hypotension type: unspecified hypotension type Pneumonia J18.9 Acute hypoxemic respiratory failure J96.01 Cardiomyopathy I42.9 Acute combined systolic and diastolic CHF, 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 Controlled type 2 diabetes mellitus with kidney complication, with long-term current use of insulin E11.29; Z79.4 (4) Hypotension Hypotension type: unspecified hypotension type Qualified Code(s): I95.9 - Hypotension, unspecified
[2023-10-21] MEDS: LEVOTHYROXINE SODIUM 50 MCG TABLET PO SCH (06:18)
[2023-10-21 07:20] LABS: Hemoglobin 11.3 g/dl (14.0-18.0); Mean Corpuscular Hemoglobin 27.8 pg (25.0-34.0); Mean Corpuscular Hgb Conc 29.7 g/dL (32.0-36.0); Mean Corpuscular Volume 93.4 fL (80.0-100.0); Mean Platelet Volume 10.4 fL (9.4-12.4); Platelet Count 270 K/uL (130-400); RDW Coefficient of Variation 15.1 % (11.5-14.5); Red Blood Count 4.07 M/uL (4.70-6.10); White Blood Count 4.55 K/ul (4.8-10.8)
[2023-10-21] MEDS: ATORVASTATIN 40 MG TAB PO SCH (07:33)
[2023-10-21] MEDS: FERROUS SULFATE 325 MG TAB PO SCH (07:33)
[2023-10-21] MEDS: SEVELAMER HCL 800 MG TABLET PO SCH ×3 (07:33→16:28)
[2023-10-21] MEDS: MEGESTROL ACETATE 40 MG TAB PO SCH (07:33)
[2023-10-21] MEDS: MIDODRINE HCL 2.5 MG TAB PO SCH ×3 (07:34→16:29)
[2023-10-21] MEDS: APIXABAN 2.5 MG TAB PO SCH ×2 (07:34→20:31)
[2023-10-21] MEDS: METOPROLOL TARTRATE 25 MG TAB PO SCH ×2 (07:34→14:55)
[2023-10-21] MEDS: NEPHROCAPS PO SCH (07:35)
[2023-10-21] MEDS: DOCUSATE SODIUM 100 MG CAP PO SCH ×2 (07:35→20:31)
[2023-10-21] MEDS: CLOPIDOGREL BISULFATE 75 MG TAB PO SCH (07:35)
[2023-10-21] MEDS: AMIODARONE 200 MG TAB PO SCH ×2 (07:35→16:28)
[2023-10-21] MEDS: PANTOprazole 40 MG TAB PO SCH (07:35)
[2023-10-21] MEDS: FLUTICASONE PROPIONATE NA SPR 16 GM BTL NAE SCH ×2 (07:35→20:30)
[2023-10-21] MEDS: LANTUS PER UNIT CHARGE SC SCH ×2 (07:35→20:29)
[2023-10-21] MEDS: INSULIN ASPART PER UNIT CHARGE SC SCH ×4 (07:37→20:29)
[2023-10-21 07:54] LABS: BUN Creatinine Ratio 5.6 (10-20); Calcium 11.3 mg/dl (8.6-10.3); Creatinine Clr Calc Pharmacy 9.4 ml/min; Est GFR (African American) 8.9 ml/min; Est GFR (Non-African American) 7.6 ml/min; Potassium 4.1 mmol/L (3.5-5.1)
--- NOTE | 2023-10-21 09:04 | Nephrology Progress Note ---
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 Godinez. AVF will need to be transposed * 1st HD 10/04/23 via temporary catheter * R IJ TCC placed 10/17/[address] Godinez * Volume status and electrolyte balance remain acceptable. Will plan for next HD in am (2) Hypotension: Plan: * SBP has been 100-111 mmHg this am. Will reduce Midodrine to 2.5 mg po TID, monitor BP (3) Atrial fibrillation with rapid ventricular response: Plan: * Remains on Metoprolol for rate control, Amiodarone and Apixaban therapy (4) Ischemic cardiomyopathy: Plan: * 09/15 NSTEMI * 09/19/23 cardiac catheterization - severe disease involving the LAD and left circumflex. Medical management recommended by cardiology (5) Anemia: Plan: * Hgb 11.3. No acute indication for CATY at this time (6) Physical deconditioning: Plan: * Awaiting transfer back to [facility] for inpatient PT when a bed is available (7) COVID-19: Plan: * Admitted w/ COVID pneumonia - resolved Admission and Anticipated Discharge Date Admission Date: October 03, 2023 Subjective Mr. Gaviria was evaluated in his hospital room this morning. He c/o weakness. staffing mgr has gotten him up to a chair. Review of Systems Constitutional: no fever Eyes: no problem reported Ear, Nose, Mouth, Throat: no problem reported Respiratory: no cough and no dyspnea Cardiovascular: no chest pain Gastrointestinal: no abdominal pain, no nausea, no vomiting and no diarrhea/loose stools Physical Exam Constitutional: + frail appearing; not in distress Eyes: PERRL, conjunctivae normal, anicteric sclerae ENMT: external ear and nose normal, oropharynx normal Neck: trachea midline, no thyromegaly Respiratory: normal respiratory effort, lungs clear to auscultation Cardiovascular: Rate/Rhythm: regular rate and regular rhythm Extremities: no edema Gastrointestinal (Abdomen): normal bowel sounds, soft, nontender, no hepatosplenomegaly Neurologic: awake; not confused Results & Data Vital Signs (Past 12 Hours) Vital Signs Temp Pulse Pulse Pulse Resp BP Pulse Ox 01/28/24 07:23 36.6 C 72 19 111/67 93 10/21/23 04:26 36.5 C 73 18 111/64 92 10/20/23 23:21 36.5 C 74 16 102/58 L 92 10/20/23 22:32 73 O2 Del Method 10/21/23 07:23 Room Air 10/21/23 04:26 Room Air 10/20/23 23:21 Room Air 10/20/23 22:32 Laboratory Results Laboratory Results - last 24 hr 10/20/23 10/20/23 10/20/23 08:58 11:17 16:17 WBC RBC Hgb Hct MCV MCH MCHC RDW Std Deviation RDW Coeff of Aysha Plt Count MPV Sodium 137 Potassium 4.3 Chloride 103 Carbon Dioxide 25 Anion Gap 9 BUN 24 H Creatinine 4.88 H* D Est Cr Clr Drug Dosing 11.9 Est GFR ( Amer) 11.9 Est GFR (Non-Af Amer) 10.3 BUN/Creatinine Ratio 4.9 L Glucose 212 H POC Glucose 180 H 145 H Calcium 10.6 H 10/20/23 10/21/23 10/21/23 20:15 06:44 07:28 WBC 4.55 L RBC 4.07 L Hgb 11.3 L Hct 38.0 L MCV 93.4 MCH 27.8 MCHC 29.7 L RDW Std Deviation 52.0 H RDW Coeff of Aysha 15.1 H Plt Count 270 MPV 10.4 Sodium 139 Potassium 4.1 Chloride 104 Carbon Dioxide 25 Anion Gap 10 BUN 35 H Creatinine 6.23 H* D Est Cr Clr Drug Dosing 9.4 Est GFR ( Amer) 8.9 Est GFR (Non-Af Amer) 7.6 BUN/Creatinine Ratio 5.6 L Glucose 104 H POC Glucose 126 H 105 H Calcium 11.3 H PG Care Time/CCT Total # of Minutes Spent Total Time Spent with Patient: Total time spent is greater than 50% in coordination of care (as documented) at patient's floor/unit and/or counseling patient: Coding Level of Care Code 43907 SUB INP/OBS CARE 3/50MIN Diagnoses End stage renal disease N18.6 Hypotension I95.9 Hypotension type: unspecified hypotension type Atrial fibrillation with rapid ventricular response I48.91 Ischemic cardiomyopathy I25.5 Anemia due to stage 3 chronic kidney disease N18.3; D63.1 Anemia type: due to chronic kidney disease Chronic kidney disease stage: stage 3 (moderate) Physical deconditioning R53.81 COVID-19 U07.1 (2) Hypotension Hypotension type: unspecified hypotension type Qualified Code(s): I95.9 - Hypotension, unspecified (5) Anemia Anemia type: due to chronic kidney disease Chronic kidney disease stage: stage 3 (moderate) Qualified Code(s): N18.3 - Chronic kidney disease, stage 3 (moderate); D63.1 - Anemia in chronic kidney disease
[2023-10-21] MEDS: traMADol HCL 50 MG TABLET PO PRN (20:28)
[2023-10-21] MEDS: QUEtiapine FUMARATE 25 MG TABLET PO SCH (20:30)
[2023-10-21] MEDS: METOPROLOL SUCC 25MG EXT REL TAB PO SCH (20:31)
[2023-10-21] MEDS: SENNA 8.6 MG TAB PO SCH (20:33)
--- NOTE | 2023-10-21 22:46 | Hospitalist Progress Note ---
Date of Service October 21, 2023 Assessment & Plan (1) Acute kidney injury superimposed on CKD: Plan: Nephrology consult and now receiving hemodialysis. tunneled dialysis catheter placed on October 18. The catheter functioned normally during dialysis on October 19. Insertion site is unremarkable. (2) Atrial fibrillation with rapid ventricular response: Plan: Initially converted to normal sinus rhythm with amiodarone infusion but now is back in atrial fibrillation with a controlled rate. 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 Appreciate cardiology consultation and recommendations. Continue amiodarone, Eliquis, metoprolol. Aspirin has been discontinued metoprolol increased to 25 mg tid on 10/20 transitioned to 75 mg po pm on 10/21 HR remains controlled on 10/21 Labs reviewed on 10/21 (3) COVID-19: Plan: Nasal swab positivity. Asymptomatic. Isolation was discontinued on October 15 (4) Hypotension: Plan: Midodrine was also discontinued earlier this hospital stay but needed to be restarted on October 16 due to recurrent hypotension. Blood pressure is now stable (5) Pneumonia: Plan: Bibasilar opacity seen on chest x-ray earlier this admission. However, this appears to be a combination of fluid overload and atelectasis. Actual pneumonia infection ruled out. Repeat chest x-ray done on October 15 was negative for infiltrate or CHF. (6) Acute hypoxemic respiratory failure: Plan: Resolved. He is now on room air (7) Cardiomyopathy: Plan: Recent anterior wall NE with known ischemic cardiomyopathy. Most recent echo revealed ejection fraction 40%. HFrEF Medical management (8) Acute combined systolic and diastolic CHF, NYHA class 3: Plan: Continue hemodialysis per nephrology schedule. Repeat chest x-ray done on October 15 revealed complete resolution of CHF . (9) Controlled type 2 diabetes mellitus with kidney complication, with long-term current use of insulin: Plan: ADA diet. Sliding scale coverage. Plan Discharge to when dialysis bed becomes available Admission and Anticipated Discharge Date Admission Date: October 03, 2023 Subjective Patient reports no new symptoms. Review of Systems Review of Systems: All systems reviewed & are unremarkable except as noted in HPI & below Physical Exam Physical Exam: awake oriented x 2 cardiac is regular Results & Data Results & Data Vital Signs (Past 12 Hours) Vital Signs Temp Pulse Pulse Pulse Resp BP Pulse Ox 10/21/23 21:44 10/21/23 19:16 36.6 C 78 18 103/78 96 10/21/23 15:44 36.4 C L 68 18 133/73 94 10/21/23 15:13 69 10/21/23 11:21 36.7 C 67 19 98/51 L 96 O2 Del Method 10/21/23 21:44 Room Air 10/21/23 19:16 Room Air 10/21/23 15:44 Room Air 10/21/23 15:13 10/21/23 11:21 Room Air PG Care Time/CCT Total # of Minutes Spent Total Time Spent with Patient: Total time spent is greater than 50% in coordination of care (as documented) at patient's floor/unit and/or counseling patient: Coding Level of Care Code 88104 SUB INP/OBS CARE 2/35MIN Diagnoses Acute kidney injury superimposed on CKD N17.9; N18.9 Atrial fibrillation with rapid ventricular response I48.91 COVID-19 U07.1 Hypotension I95.9 Hypotension type: unspecified hypotension type Pneumonia J18.9 Acute hypoxemic respiratory failure J96.01 Cardiomyopathy I42.9 Acute combined systolic and diastolic CHF, 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 Controlled type 2 diabetes mellitus with kidney complication, with long-term current use of insulin E11.29; Z79.4 (4) Hypotension Hypotension type: unspecified hypotension type Qualified Code(s): I95.9 - Hypotension, unspecified
[2023-10-22] MEDS: LEVOTHYROXINE SODIUM 50 MCG TABLET PO SCH (06:07)
[2023-10-22 06:33] LABS: Hematocrit (blood only) 36.1 % (42.0-52.0); Mean Corpuscular Hemoglobin 27.9 pg (25.0-34.0); Mean Corpuscular Hgb Conc 30.5 g/dL (32.0-36.0); Mean Corpuscular Volume 91.6 fL (80.0-100.0); Mean Platelet Volume 10.3 fL (9.4-12.4); Platelet Count 252 K/uL (130-400); RDW Coefficient of Variation 14.9 % (11.5-14.5); RDW Standard Deviation 50.4 fL (36.4-46.3); Red Blood Count 3.94 M/uL (4.70-6.10); White Blood Count 4.86 K/ul (4.8-10.8)
[2023-10-22] MEDS ORDERED: SODIUM CHLORIDE 0.9% 1,000 ML IV PRN (07:00)
[2023-10-22 07:05] LABS: BUN Creatinine Ratio 5.7 (10-20); Calcium 11.4 mg/dl (8.6-10.3); Creatinine Clr Calc Pharmacy 7.7 ml/min; Potassium 4.4 mmol/L (3.5-5.1)
[2023-10-22] MEDS: MIDODRINE HCL 2.5 MG TAB PO SCH ×3 (08:40→18:09)
[2023-10-22] MEDS: INSULIN ASPART PER UNIT CHARGE SC SCH ×4 (08:44→20:56)
--- NOTE | 2023-10-22 08:44 | Nephrology Progress Note ---
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 Godinez. AVF will need to be transposed * 1st HD 10/04/23 via temporary catheter * R IJ TCC placed 10/17/[address] Godinez * Will provide HD this morning. Orders have been placed in EMR and HD RN notified (2) Hypotension: Plan: * SBP 70-90 mmHg this am. Continue Midodrine to 2.5 mg po TID, monitor BP (3) Atrial fibrillation with rapid ventricular response: Plan: * Remains on Metoprolol for rate control, Amiodarone and Apixaban therapy (4) Ischemic cardiomyopathy: Plan: * 09/15 NSTEMI * 09/19/23 cardiac catheterization - severe disease involving the LAD and left circumflex. Medical management recommended by cardiology (5) Anemia: Plan: * Hgb 11.3. No acute indication for CATY at this time (6) Physical deconditioning: Plan: * Awaiting transfer back to [facility] for inpatient PT when a bed is available (7) COVID-19: Plan: * Admitted w/ COVID pneumonia - resolved Admission and Anticipated Discharge Date Admission Date: October 03, 2023 Subjective Mr. Gaviria was evaluated in his hospital room this morning. He c/o weakness and is anxious to resume PT. Review of Systems Constitutional: no fever Eyes: no problem reported Ear, Nose, Mouth, Throat: no problem reported Respiratory: no cough and no dyspnea Cardiovascular: no chest pain Gastrointestinal: no abdominal pain, no nausea, no vomiting and no diar magdi/loose stools Physical Exam Constitutional: + frail appearing; not in distress Eyes: PERRL, conjunctivae normal, anicteric sclerae ENMT: external ear and nose normal, oropharynx normal Neck: trachea midline, no thyromegaly Respiratory: normal respiratory effort, lungs clear to auscultation Cardiovascular: Rate/Rhythm: + irregularly irregular Extremities: no edema Gastrointestinal (Abdomen): normal bowel sounds, soft, nontender, no hepatosplenomegaly Neurologic: awake; not confused Results & Data Vital Signs (Past 12 Hours) Vital Signs Temp Pulse Pulse Resp BP Pulse Ox O2 Del Method 10/22/23 08:00 36.9 C 88 16 105/66 95 Room Air 10/22/23 03:00 73 10/22/23 02:49 36.5 C 70 18 127/72 94 Room Air 10/21/23 22:57 36.6 C 74 18 107/60 93 Room Air 10/21/23 21:44 Room Air Laboratory Results Laboratory Results - last 24 hr 10/21/23 10/21/23 10/21/23 11:25 16:15 20:05 WBC RBC Hgb Hct MCV MCH MCHC RDW Std Deviation RDW Coeff of Aysha Plt Count MPV Sodium Potassium Chloride Carbon Dioxide Anion Gap BUN Creatinine Est Cr Clr Drug Dosing Est GFR ( Amer) Est GFR (Non-Af Amer) BUN/Creatinine Ratio Glucose POC Glucose 92 162 H 155 H Calcium 10/22/23 10/22/23 06:03 07:28 WBC 4.86 RBC 3.94 L Hgb 11.0 L Hct 36.1 L MCV 91.6 MCH 27.9 MCHC 30.5 L RDW Std Deviation 50.4 H RDW Coeff of Aysha 14.9 H Plt Count 252 MPV 10.3 Sodium 139 Potassium 4.4 Chloride 107 Carbon Dioxide 23 Anion Gap 9 BUN 43 H Creatinine 7.56 H* D Est Cr Clr Drug Dosing 7.7 Est GFR ( Amer) 7.0 Est GFR (Non-Af Amer) 6.0 BUN/Creatinine Ratio 5.7 L Glucose 144 H POC Glucose 142 H Calcium 11.4 H PG Care Time/CCT Total # of Minutes Spent Total Time Spent with Patient: Total time spent is greater than 50% in coordination of care (as documented) at patient's floor/unit and/or counseling patient: Coding Level of Care Code 07034 SUB INP/OBS CARE 3/50MIN Diagnoses End stage renal disease N18.6 Hypotension I95.9 Hypotension type: unspecified hypotension type Atrial fibrillation with rapid ventricular response I48.91 Ischemic cardiomyopathy I25.5 Anemia due to stage 3 chronic kidney disease N18.3; D63.1 Anemia type: due to chronic kidney disease Chronic kidney disease stage: stage 3 (moderate) Physical deconditioning R53.81 COVID-19 U07.1 (2) Hypotension Hypotension type: unspecified hypotension type Qualified Code(s): I95.9 - Hypotension, unspecified (5) Anemia Anemia type: due to chronic kidney disease Chronic kidney disease stage: stage 3 (moderate) Qualified Code(s): N18.3 - Chronic kidney disease, stage 3 (moderate); D63.1 - Anemia in chronic kidney disease
[2023-10-22] MEDS: LANTUS PER UNIT CHARGE SC SCH ×2 (08:45→20:56)
[2023-10-22] MEDS: SEVELAMER HCL 800 MG TABLET PO SCH ×3 (08:50→17:23)
[2023-10-22] MEDS: AMIODARONE 200 MG TAB PO SCH ×2 (15:39→18:09)
[2023-10-22] MEDS: CLOPIDOGREL BISULFATE 75 MG TAB PO SCH (15:40)
[2023-10-22] MEDS: ATORVASTATIN 40 MG TAB PO SCH (15:40)
[2023-10-22] MEDS: APIXABAN 2.5 MG TAB PO SCH ×2 (15:40→20:52)
[2023-10-22] MEDS: FLUTICASONE PROPIONATE NA SPR 16 GM BTL NAE SCH ×2 (15:40→20:55)
[2023-10-22] MEDS: FERROUS SULFATE 325 MG TAB PO SCH (15:40)
[2023-10-22] MEDS: MEGESTROL ACETATE 40 MG TAB PO SCH (15:40)
[2023-10-22] MEDS: DOCUSATE SODIUM 100 MG CAP PO SCH ×2 (15:40→20:51)
[2023-10-22] MEDS: PANTOprazole 40 MG TAB PO SCH (15:41)
[2023-10-22] MEDS: NEPHROCAPS PO SCH (15:41)
--- NOTE | 2023-10-22 16:05 | Ultrasound Report ---
ULTRASOUND HEMODIALYSIS FISTULA CLINICAL HISTORY: Difficulty with dialysis. COMPARISON STUDY: No priors. FINDINGS: Real-time, grayscale and color Doppler sonography of the left upper extremity dialysis fist fior is performed. A fistula is identified in the left upper extremity, extending from the cephalic ve in to the brachial artery. The cephalic vein is patent in the proximal upper extremity. There is foca l narrowing above the anastomosis with occlusive superficial venous thrombus in the cephalic vein abo ve the fistula. The fistula is patent. There are foci of nonocclusive thrombus within the midportion of the fistula and near the arterial anastomosis. Velocities within the fistula measure up to 295 cm/ s. The brachial artery is patent, as are the radial and ulnar arteries. IMPRESSION: 1. There is focal narrowing of the cephalic vein above the fistula which may represent stenosis. 2. There is occlusive superficial venous thrombus within the cephalic vein above the fistula. 3. The fistula is patent, and contains small foci of nonocclusive thrombus. 4. The brachial artery is patent. Dictated: 10/22/2023 3:46 PM Transcribed: 10/22/2023 4:01 PM Zachary [id number] [email or web address] Electronically signed by: Dez Munoz M.D. 10/22/2023 4:04 PM
[2023-10-22] MEDS: SENNA 8.6 MG TAB PO SCH (20:51)
[2023-10-22] MEDS: QUEtiapine FUMARATE 25 MG TABLET PO SCH (20:51)
[2023-10-22] MEDS: METOPROLOL SUCC 25MG EXT REL TAB PO SCH (20:51)
--- NOTE | 2023-10-22 22:24 | Hospitalist Progress Note ---
Date of Service October 22, 2023 Assessment & Plan (1) Acute kidney injury superimposed on CKD: Plan: Nephrology consult and now receiving hemodialysis. tunneled dialysis catheter placed on October 18. The catheter functioned normally during dialysis on October 19. Insertion site is unremarkable. (2) Atrial fibrillation with rapid ventricular response: Plan: Initially converted to normal sinus rhythm with amiodarone infusion but now is back in atrial fibrillation with a controlled rate. 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 Appreciate cardiology consultation and recommendations. Continue amiodarone, Eliquis, metoprolol. Aspirin has been discontinued metoprolol increased to 25 mg tid on 10/20 transitioned to 75 mg po pm on 10/21 HR remains controlled on 10/22 Labs reviewed on 10/22 (3) COVID-19: Plan: Nasal swab positivity. Asymptomatic. Isolation was discontinued on October 15 (4) Hypotension: Plan: Midodrine was also discontinued earlier this hospital stay but needed to be restarted on October 16 due to recurrent hypotension. Blood pressure is now stable (5) Pneumonia: Plan: Bibasilar opacity seen on chest x-ray earlier this admission. However, this appears to be a combination of fluid overload and atelectasis. Actual pneumonia infection ruled out. Repeat chest x-ray done on October 15 was negative for infiltrate or CHF. (6) Acute hypoxemic respiratory failure: Plan: Resolved. He is now on room air (7) Cardiomyopathy: Plan: Recent anterior wall VA with known ischemic cardiomyopathy. Most recent echo revealed ejection fraction 40%. HFrEF Medical management (8) Acute combined systolic and diastolic CHF, NYHA class 3: Plan: Continue hemodialysis per nephrology schedule. Repeat chest x-ray done on October 15 revealed complete resolution of CHF . (9) Controlled type 2 diabetes mellitus with kidney complication, with long-term current use of insulin: Plan: ADA diet. Sliding scale coverage. Plan Discharge to [facility] when dialysis bed becomes available Admission and Anticipated Discharge Date Admission Date: October 03, 2023 Subjective 83 yo male reports no new symptoms. Review of Systems Review of Systems: All systems reviewed & are unremarkable except as noted in HPI & below Physical Exam Physical Exam: awake oriented x 2 cardiac is regular Results & Data Results & Data Vital Signs (Past 12 Hours) Vital Signs Temp Pulse Pulse Pulse Resp BP BP 01/29/24 20:29 36.9 C 69 18 103/61 10/22/23 17:00 36.8 C 97 H 18 129/65 10/22/23 15:00 76 10/22/23 12:45 36.5 C 71 71 100/54 L 10/22/23 12:33 36.5 C 70 85/57 L 10/22/23 12:30 73 120/71 10/22/23 12:00 72 112/65 10/22/23 11:30 76 87/53 L 10/22/23 11:00 55 L 110/84 10/22/23 10:30 77 78/54 L Pulse Ox O2 Del Method 10/22/23 20:29 92 Room Air 10/22/23 17:00 96 Room Air 10/22/23 15:00 10/22/23 12:45 10/22/23 12:33 10/22/23 12:30 10/22/23 12:00 10/22/23 11:30 10/22/23 11:00 10/22/23 10:30 PG Care Time/CCT Total # of Minutes Spent Total Time Spent with Patient: Total time spent is greater than 50% in coordination of care (as documented) at patient's floor/unit and/or counseling patient: Coding Level of Care Code 27116 SUB INP/OBS CARE 2/35MIN Diagnoses Acute kidney injury superimposed on CKD N17.9; N18.9 Atrial fibrillation with rapid ventricular response I48.91 COVID-19 U07.1 Hypotension I95.9 Hypotension type: unspecified hypotension type Pneumonia J18.9 Acute hypoxemic respiratory failure J96.01 Cardiomyopathy I42.9 Acute combined systolic and diastolic CHF, 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 Controlled type 2 diabetes mellitus with kidney complication, with long-term cu rrent use of insulin E11.29; Z79.4 (4) Hypotension Hypotension type: unspecified hypotension type Qualified Code(s): I95.9 - Hypotension, unspecified
[2023-10-23 06:29] LABS: Hematocrit (blood only) 36.4 % (42.0-52.0); Hemoglobin 11.2 g/dl (14.0-18.0); Mean Corpuscular Hemoglobin 28.3 pg (25.0-34.0); Mean Corpuscular Hgb Conc 30.8 g/dL (32.0-36.0); Mean Corpuscular Volume 91.9 fL (80.0-100.0); Mean Platelet Volume 10.4 fL (9.4-12.4); Platelet Count 223 K/uL (130-400); RDW Standard Deviation 50.6 fL (36.4-46.3); Red Blood Count 3.96 M/uL (4.70-6.10); White Blood Count 4.37 K/ul (4.8-10.8)
[2023-10-23] MEDS: LEVOTHYROXINE SODIUM 50 MCG TABLET PO SCH (06:51)
[2023-10-23 07:04] LABS: BUN Creatinine Ratio 4.1 (10-20); Calcium 10.8 mg/dl (8.6-10.3); Creatinine Clr Calc Pharmacy 10.5 ml/min; Est GFR (African American) 10.2 ml/min; Est GFR (Non-African American) 8.8 ml/min; Potassium 4.5 mmol/L (3.5-5.1)
[2023-10-23] MEDS: LANTUS PER UNIT CHARGE SC SCH (08:44)
[2023-10-23] MEDS: INSULIN ASPART PER UNIT CHARGE SC SCH ×2 (08:44→12:06)
[2023-10-23] MEDS: SEVELAMER HCL 800 MG TABLET PO SCH ×2 (08:46→12:08)
[2023-10-23] MEDS: MIDODRINE HCL 2.5 MG TAB PO SCH ×2 (08:46→12:08)
--- NOTE | 2023-10-23 08:46 | Nephrology Progress Note ---
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 Godinez. AVF will need to be transposed * 1st HD 10/04/23 via temporary catheter * R IJ TCC placed 10/17/[address] Godinez * 10/22/23 HD AVF US - focal narrowing of cephalic vein above fistula suggestive of stenosis with a small focus of nonocclusive throbus. Brachial artery is patent. Await further input from vascular surgery * No acute indication for HD today. Will plan next HD for am if patient is still hospitalized (2) Hypotension: Plan: * SBP 100-129 mmHg this am. Continue Midodrine to 2.5 mg po TID, monitor BP (3) Atrial fibrillation with rapid ventricular response: Plan: * Remains on Metoprolol for rate control, Amiodarone and Apixaban therapy (4) Ischemic cardiomyopathy: Plan: * 09/15 NSTEMI * 09/19/23 cardiac catheterization - severe disease involving the LAD and left circumflex. Medical management recommended by cardiology (5) Anemia: Plan: * Hgb 11.2. No acute indication for CATY at this time (6) Physical deconditioning: Plan: * Awaiting transfer back to [facility] for inpatient PT when a bed is available (7) COVID-19: Plan: * Admitted w/ COVID pneumonia - resolved Admission and Anticipated Discharge Date Admission Date: October 03, 2023 Subjective Mr. Gaviria was evaluated in his hospital room this morning. He worked with PT yesterday and reports that he required assistance moving from bed to chair and tired easily. He currently denies fever, angina or dyspnea Review of Systems Constitutional: no fever Eyes: no problem reported Ear, Nose, Mouth, Throat: no problem reported Respiratory: no cough and no dyspnea Cardiovascular: no chest pain Gastrointestinal: no abdominal pain, no nausea, no vomiting and no diarrhea/loose stools Physical Exam Constitutional: + frail appearing; not in distress Eyes: PERRL, conjunctivae normal, anicteric sclerae ENMT: external ear and nose normal, oropharynx normal Neck: trachea midline, no thyromegaly Respiratory: normal respiratory effort, lungs clear to auscultation Cardiovascular: Rate/Rhythm: + irregularly irregular Extremities: no edema Gastrointestinal (Abdomen): normal bowel sounds, soft, nontender, no hepatosplenomegaly Neurologic: awake; not confused Results & Data Vital Signs (Past 12 Hours) Vital Signs Temp Pulse Pulse Resp BP Pulse Ox O2 Del Method 10/23/23 07:18 36.4 C L 73 18 102/61 91 Room Air 10/22/23 23:59 36.4 C L 72 18 106/67 93 Room Air 10/22/23 23:19 69 Laboratory Results Laboratory Results - last 24 hr 10/22/23 10/22/23 10/23/23 15:53 20:38 05:48 WBC 4.37 L RBC 3.96 L Hgb 11.2 L Hct 36.4 L MCV 91.9 MCH 28.3 MCHC 30.8 L RDW Std Deviation 50.6 H RDW Coeff of Aysha 15.0 H Plt Count 223 MPV 10.4 Sodium 138 Potassium 4.5 Chloride 105 Carbon Dioxide 25 Anion Gap 8 BUN 23 D Creatinine 5.56 H* D Est Cr Clr Drug Dosing 10.5 Est GFR ( Amer) 10.2 Est GFR (Non-Af Amer) 8.8 BUN/Creatinine Ratio 4.1 L Glucose 123 H POC Glucose 157 H 106 H Calcium 10.8 H 10/23/23 07:36 WBC RBC Hgb Hct MCV MCH MCHC RDW Std Deviation RDW Coeff of Aysha Plt Count MPV Sodium Potassium Chloride Carbon Dioxide Anion Gap BUN Creatinine Est Cr Clr Drug Dosing Est GFR ( Amer) Est GFR (Non-Af Amer) BUN/Creatinine Ratio Glucose POC Glucose 119 H Calcium Diagnostic Findings Laboratory Results - last 24 hr 10/22/23 10/22/23 10/23/23 15:53 20:38 05:48 WBC 4.37 L RBC 3.96 L Hgb 11.2 L Hct 36.4 L MCV 91.9 MCH 28.3 MCHC 30.8 L RDW Std Deviation 50.6 H RDW Coeff of Aysha 15.0 H Plt Count 223 MPV 10.4 Sodium 138 Potassium 4.5 Chloride 105 Carbon Dioxide 25 Anion Gap 8 BUN 23 D Creatinine 5.56 H* D Est Cr Clr Drug Dosing 10.5 Est GFR ( Amer) 10.2 Est GFR (Non-Af Amer) 8.8 BUN/Creatinine Ratio 4.1 L Glucose 123 H POC Glucose 157 H 106 H Calcium 10.8 H 10/23/23 07:36 WBC RBC Hgb Hct MCV MCH MCHC RDW Std Deviation RDW Coeff of Aysha Plt Count MPV Sodium Potassium Chloride Carbon Dioxide Anion Gap BUN Creatinine Est Cr Clr Drug Dosing Est GFR ( Amer) Est GFR (Non-Af Amer) BUN/Creatinine Ratio Glucose POC Glucose 119 H Calcium PG Care Time/CCT Total # of Minutes Spent Total Time Spent with Patient: Total time spent is greater than 50% in coordination of care (as documented) at patient's floor/unit and/or counseling patient: Coding Level of Care Code 39018 SUB INP/OBS CARE 3/50MIN Diagnoses End stage renal disease N18.6 Hypotension I95.9 Hypotension type: unspecified hypotension type Atrial fibrillation with rapid ventricular response I48.91 Ischemic cardiomyopathy I25.5 Anemia due to stage 3 chronic kidney disease N18.3; D63.1 Anemia type: due to chronic kidney disease Chronic kidney disease stage: stage 3 (moderate) Physical deconditioning R53.81 COVID-19 U07.1 (2) Hypotension Hypotension type: unspecified hypotension type Qualified Code(s): I95.9 - Hypotension, unspecified (5) Anemia Anemia type: due to chronic kidney disease Chronic kidney disease stage: stage 3 (moderate) Qualified Code(s): N18.3 - Chronic kidney disease, stage 3 (moderate); D63.1 - Anemia in chronic kidney disease
[2023-10-23] MEDS: AMIODARONE 200 MG TAB PO SCH (09:56)
[2023-10-23] MEDS: NEPHROCAPS PO SCH (09:57)
[2023-10-23] MEDS: PANTOprazole 40 MG TAB PO SCH (09:57)
[2023-10-23] MEDS: ATORVASTATIN 40 MG TAB PO SCH (09:57)
[2023-10-23] MEDS: FERROUS SULFATE 325 MG TAB PO SCH (09:57)
[2023-10-23] MEDS: MEGESTROL ACETATE 40 MG TAB PO SCH (09:57)
[2023-10-23] MEDS: DOCUSATE SODIUM 100 MG CAP PO SCH (09:57)
[2023-10-23] MEDS: CLOPIDOGREL BISULFATE 75 MG TAB PO SCH (09:57)
[2023-10-23] MEDS: APIXABAN 2.5 MG TAB PO SCH (09:57)
[2023-10-23] MEDS: FLUTICASONE PROPIONATE NA SPR 16 GM BTL NAE SCH (09:58)
--- NOTE | 2023-10-23 14:35 | Discharge Summary ---
Date of Service October 23, 2023 Admission HPI Per Admitting Provider Davin Gaviria is an 83 year old male who presents to the ER from pre-op for the OR for tunneled catheter placement due to BP 80/60s with heart rate in the 160s. He was recently admitted to [facility] - August, due to NSTEMI. Cardiac catheterization was performed showing severe obstructive coronary disease involving the LAD and left circumflex systems with medical management recommended - although I am unclear whether CABG was discussed I suspect he is just a poor candidate for this given his other chronic medical problems. He was discharged to [facility] and was noted to have worsening creatinine yesterday of 7 (per ER report) and planned for tunneled catheter today to start hemodialysis. The patient reports no chest pain since discharge but does note slowly increased shortness of breath since discharge. He is unsure about his weight or leg swelling. He reports 2 weeks of cough which was also present during his last admission here. No fever or chills. Patient was discussed with me around 2:28pm and advised ER physician needs to discuss with nephrology (needs emergent dialysis ?CRRT), cardiology (?CABG given severe obstructive coronary disease involving the LAD and left circumflex systems, management of a. fib RVR) and credit verifier (will need to be admitted to ICU if he does stay here) prior to admission to [facility]. Recommended sodium bicarb 50 meq IV to stabilize metabolic acidosis prior to dialysis and amiodarone IV drip instead of diltiazem given his BP improves in NSR, recent NSTEMI with borderline EF and already converting in and out of a. fib on telemetry. Patient seen after temporary dialysis catheter placed by credit verifier and nephrology accepted patient for hemodialysis here. Principal Diagnosis jv superimposed on CKD Discharge Exam awake oriented x 2 cardiac is regular Discharge Data Allergies Allergy/AdvReac Type Severity Reaction Status Date / Time latex Allergy Mild SKIN Verified 10/03/23 14:52 IRRITATION Consultations 10/03/23 14:16 ED Decision to Admit Stat 10/03/23 15:56 ED Decision to Admit Stat 10/03/23 18:43 Consult Stave Log Ripsaw Operator Routine 10/04/23 08:35 Consult Nephrology Routine 10/04/23 10:55 Consult Cardiology Routine 10/07/23 09:34 Consult Vascular Surgery Routine 10/15/23 10:12 Consult Vascular Surgery Routine Procedures Performed Operation Date: 10/17/23 10:50 Actual Procedures p Insertion Perm Catheter, Right Jugular Vein Approach, Ultrasound Localization of Right Jugular Vein, Fluoscopy for Positioning, (Right) - Stefan Godinez MD Ordered Studies 10/05/23 08:23 US venous doppler LE BI Urgent 10/17/23 07:37 EV cvc insrt tunnel wo prt/caramel candy maker Routine US EV guide vascular access Routine 10/18/23 11:52 US vasc access [US guide vascular access] Routine 10/22/23 12:31 US hemodialysis fistula Routine Hospital Course (1) Acute kidney injury superimposed on CKD: Nephrology consult and now receiving hemodialysis. tunneled dialysis catheter placed on October 18. The catheter functioned normally during dialysis on October 19. Insertion site is unremarkable. (2) Atrial fibrillation with rapid ventricular response: Initially converted to normal sinus rhythm with amiodarone infusion but now is back in atrial fibrillation with a controlled rate. 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 Appreciate cardiology consultation and recommendations. Continue amiodarone, Eliquis, metoprolol. Aspirin has been discontinued metoprolol increased to 25 mg tid on 10/20 transitioned to 75 mg po pm on 10/21 HR remains controlled on 10/23 Labs reviewed on 10/23 (3) COVID-19: Nasal swab positivity. Asymptomatic. Isolation was discontinued on October 15 (4) Hypotension: Midodrine was also discontinued earlier this hospital stay but needed to be restarted on October 16 due to recurrent hypotension. Blood pressure is now stable (5) Pneumonia: Bibasilar opacity seen on chest x-ray earlier this admission. However, this appears to be a combination of fluid overload and atelectasis. Actual pneumonia infection ruled out. Repeat chest x-ray done on October 15 was negative for infiltrate or CHF. (6) Acute hypoxemic respiratory failure: Resolved. He is now on room air (7) Cardiomyopathy: Recent anterior wall IL with known ischemic cardiomyopathy. Most recent echo revealed ejection fraction 40%. HFrEF Medical management (8) Acute combined systolic and diastolic CHF, NYHA class 3: Continue hemodialysis per nephrology schedule. Repeat chest x-ray done on October 15 revealed complete resolution of CHF . (9) Controlled type 2 diabetes mellitus with kidney complication, with long-term current use of insulin: ADA diet. Sliding scale coverage. Plan Discharge to [facility] Total Time Total Time Spent Total Time Spent (In Minutes): 32 Discharge Plan Discharge Items Patient Disposition: Transfer Inpatient Rehab Fac Reason For Visit: A. FIB RVR, HYPOTENSION, JV Discharge Diagnosis: a fib rvr Activity: Resume your previous activity Non-emergency contact: Primary Care Provider Call non-emergency contact if: you have any medication questions Follow-up/Referrals: Orly Dickson MD [Primary Care Provider] - Diet: Carb Consistent or DM2 and Heart Healthy Addtl Attending Provider Instructions: You have been hospitalized for an acute medical problem. During your stay at [facility], we have made an effort to correct the problem that brought you to the hospital while keeping you as comfortable as possible. Medications were used to bring your condition under control and your discharge instructions will include directions for any medications you should take after leaving the hospital. Please make sure you see your Primary Care Provider as part of your follow up plan. Pending Studies at Discharge: No Stand-Alone Forms: [facility] Skilled Items Lines: None Urinary Catheter: No Medications and DC Order Prescriptions: New amiodarone 200 mg Tablet 200 mg PO BIDM Qty: 60 0RF midodrine 2.5 mg Tablet 2.5 mg PO TID@0800,1200,1700 Qty: 0 0RF Eliquis 2.5 mg Tablet 2.5 mg PO BID Qty: 0 0RF quetiapine 25 mg Tablet 25 mg PO HS Qty: 30 0RF sevelamer HCl 800 mg Tablet 800 mg PO TIDM Qty: 90 0RF sennosides [Senokot] 8.6 mg Tablet 17.2 mg PO HS Qty: 30 0RF guaifenesin 100 mg/5 mL Liquid 100 mg PO Q6H PRNQty: 0 0RF megestrol 40 mg Tablet 40 mg PO QAM Qty: 0 0RF docusate sodium 100 mg Capsule 100 mg PO BID Qty: 60 0RF Renal Caps 1 mg Capsule 1 cap PO QAM Qty: 0 0RF Continued metoprolol succinate 50 mg tablet extended release 24 hr 75 mg PO HS Qty: 135 3RF Rx Instructions: 50 mg PO Take 1 1/2 tablets at bedtime ; (DME) BD SafetyGlide Insulin Syringe 0.3 mL 31 gauge x 15/64" syringe MISCELLANEOUS Qty: 700 3RF Rx Instructions: Use 7 times daily (DME) pen needle, diabetic [BD Ultra-Fine Mini Pen Needle] 31 gauge x 3/16" needle MISCELLANEOUS Qty: 200 3RF Rx Instructions: use 2 daily fluticasone propionate [Flonase Allergy Relief] 50 mcg/actuation spray,suspension 1 spray intranasal BID Qty: 3 5RF tramadol 50 mg tablet 50 mg PO BID PRN (Reason: pain) 30 Days Qty: 60 5RF ferrous sulfate 140 mg (45 mg iron) tablet extended release 45 mg PO BID Heplisav-B (PF) 20 mcg/0.5 mL syringe 0.5 ml IM Q30D Qty: 2.5 0RF Venofer 200 mg iron/10 mL solution 200 mg IV DAILY Rx Instructions: administer over 30 mins Novolin R Regular U100 Insulin 100 unit/mL solution See Rx Instructions SQ TIDM Qty: 40 5RF Rx Instructions: patient states takes 10-11 units for breakfast, 5-6 units for lunch, 13-22 units for supper TDD 40 units FILL WHEN REQUESTED Heplisav-B (PF) 20 mcg/0.5 mL syringe 0.5 ml IM Q30D Qty: 2.5 0RF Aranesp (in polysorbate) 60 mcg/mL solution 60 mcg subcut .COMPLEX Qty: 4 0RF Rx Instructions: 60 mcg subcutaneously q 2 weeks, hold for hgb >11; (DME) FreeStyle Ritchie 14 Day Sensor Kit MISCELLANEOUS (DME) FreeStyle Ritchie 14 Day [place] Misc MISCELLANEOUS pantoprazole 40 mg tablet,delayed release (DR/EC) 40 mg PO QAM levothyroxine [Synthroid] 50 mcg tablet 50 mcg PO QAM Rx Instructions: 50 mcg PO TAKE ON AN EMPTY STOMACH WITH A FULL GLASS OF WATER, WAIT 30 MINUTES TO EAT, DRINK, OR TAKE MEDICATIONS; insulin glargine [Basaglar KwikPen U-100 Insulin] 100 unit/mL (3 mL) insulin pen 27 unit subcut QPM atorvastatin 40 mg Tablet 80 mg PO QAM Qty: 0 0RF clopidogrel 75 mg Tablet 75 mg PO QAM Qty: 0 0RF Discontinued nystatin 100,000 unit/gram cream 1 applic TOP BID PRN (Reason: Itching) Qty: 30 0RF clonidine HCl 0.1 mg tablet 0.1 mg PO HS Qty: 90 3RF alprazolam 0.5 mg tablet 0.5 mg PO DAILY PRN (Reason: anxiety) Qty: 20 5RF finasteride [Proscar] 5 mg tablet 5 mg PO DAILY Qty: 90 3RF tamsulosin 0.4 mg capsule 0.8 mg PO DAILY Qty: 180 3RF furosemide 40 mg tablet 40 mg PO QAM sildenafil [Viagra] 100 mg tablet 100 mg PO ONCE PRN (Reason: sexual activity) Rx Instructions: administer 30 minutes to 4 hours before activity triamcinolone acetonide [Triderm] 0.1 % cream 1 applic TOP BID PRN (Reason: Itching) ezetimibe [Zetia] 10 mg tablet 10 mg PO QPM tramadol 50 mg tablet 50 mg PO Q8H PRN (Reason: pain) Qty: 10 0RF furosemide 40 mg Tablet 40 mg PO BID17 Qty: 0 0RF metoprolol succinate 50 mg Tablet Extended Release 24 Hr 100 mg PO QAM Qty: 0 0RF aspirin 81 mg Tablet,Delayed Release (Dr/Ec) 81 mg PO QAM Qty: 0 0RF nitroglycerin [Nitro-Dur] 0.4 mg/hr Patch 24 Hour 1 patch transdermal QAM Qty: 0 0RF Discharge Orders: Discharge Order (Routine); Ordered 10/23/23 Ordered By: Markus Cervantes Admission Data Admit Date/Time: 10/03/23 16:24 Attending Provider: Markus Cervantes Admit Provider: Be Rosales Primary Care Provider: Orly Dickson V. Other Providers: Be Rosales; [facility]; Stefan Godinez; Akash Rosario; Dany Cid; Hesham Blake; Cameron Miranda; Greg Arrington; Jorge Angulo; Floyd Abad; Memo Motley Jr; Edgar Bermudez; Rocio Kulkarni; Araseli Ramsey; David Winters; David Zhou; Gregory Geiger; Renetta Noe; Samreen Foy; Anthony Garcia; Jacinto Torres; Jose Morales Other Interventions: Discharge Summary Assessment (RN) Last Done: 10/23/23 15:02 Coding Level of Care Code 84305 INP/OBS DISCH >30 MIN Diagnoses Acute kidney injury superimposed on CKD N17.9; N18.9 Atrial fibrillation with rapid ventricular response I48.91 COVID-19 U07.1 Hypotension I95.9 Hypotension type: unspecified hypotension type Pneumonia J18.9 Acute hypoxemic respiratory failure J96.01 Cardiomyopathy I42.9 Acute combined systolic and diastolic CHF, 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 Controlled type 2 diabetes mellitus with kidney complication, with long-term current use of insulin E11.29; Z79.4
[2023-10-24] MEDS ORDERED: SODIUM CHLORIDE 0.9% 1,000 ML IV PRN (07:00)
== END 2023-10-23 15:15 | DRG 291 ==
LOC: ED 12:17 → SUATTDRO 16:24 → 1E 16:24 → 2E 10-08 18:09

== ENCOUNTER 2024-01-06 19:35 | Inpatient (IN) ==
[2024-01-06] MEDS: NITROGLYCERIN SL 0.4 MG/TAB TAB ONE (19:51)
--- NOTE | 2024-01-06 19:51 | XRay Report ---
XR chest 1V portable HISTORY: 83 years-old Male Dyspnea acute shortness of breath COMPARISON: 10/15/2023 TECHNIQUE: AP view of the chest FINDINGS: Cardiac silhouette is enlarged. Dual-lumen right IJ hemodialysis catheter distal tip terminates in th e expected location of the mid SVC. No pneumothorax. Small pleural effusions with perivascular conges tion and diffuse interstitial coarsening. Bibasilar diffuse left lung airspace opacities. The bones a ppear grossly intact. Right-sided rotator cuff calcific tendinosis. IMPRESSION: 1. Cardiomegaly with pulmonary edema with small pleural effusions. 2. Airspace opacities throughout the left lung may represent asymmetric alveolar pulmonary edema vers us multifocal pneumonia. ACT 112: Negative or not required by law. The above report was generated using voice recognition software. It may contain grammatical, syntax o r spelling errors. Electronically signed by: Gary Linton M.D. 01/06/2024 7:50 PM
[2024-01-06 20:03] LABS: Base Excess VBG -7.5 mEq/L; HCO3 VBG 22 mmol/L; Oxygen Saturation VBG < 60.0 %; PCO2 VBG 62 mmHg (38-50); PO2 VBG 36 mmHg; pH VBG 7.16 (7.36-7.41)
--- NOTE | 2024-01-06 20:09 | Emergency Department Note ---
Impression & Plan Acute pulmonary edema, Acute hypoxemic respiratory failure, Non-ST elevation GA (NSTEMI), Elevated brain natriuretic peptide (BNP) level, ESRD (end stage renal disease) on dialysis, Hyperglycemia ED Provider Note HISTORY OF PRESENT ILLNESS: Patient is an 83-year-old male presenting with shortness of breath. Patient presents from [facility] for sudden onset of shortness of breath. Patient was his normal self today when he suddenly became very short of breath. [facility] called 911. Patient does not wear any supplemental oxygen at baseline. He is an ESRD patient receives dialysis Sunday/Sunday/Sunday. He reports he received his last full session on Sunday. He denies any chest pain with the shortness of breath. He had sats in the 50s for EMS and was started on CPAP and given a DuoNeb prehospital. Patient reports sudden onset of shortness of breath. Denies any DVT or PE history. Denies any recent fevers or cough. ROS: as above PHYSICAL EXAM: Constitutional: Patient appears in no acute distress. HENT: Head: Normocephalic and atraumatic. Eyes: EOMI, PERRL Mouth/Throat: Mucous membranes moist. Neck: Trachea midline. Neck supple. Cardiovascular: RRR, No murmurs, rubs or gallops. Intact distal pulses. Pulmonary/Chest: No respiratory distress. Breath sounds clear and equal bilaterally. Coarse breath sounds bilaterally. Patient is tachypneic and having belly breathing. He is on CPAP. Patient has a subclavian dialysis port on the right chest. Abdominal: Abdomen soft, no tenderness, rebound or guarding. Musculoskeletal: No edema, tenderness or deformity noted. Skin: Warm and dry. No rash, erythema, pallor or cyanosis Psychiatric: Appropriate mood and affect for situation. Neurological: Alert and keenly responsive. CN II-XII grossly intact, moving all extremities equally and fully. MDM: - Vitals signs showed hypertension. Patient on CPAP on arrival and transition to our BiPAP. - History obtained via patient and EMS. History as above. - Chronic conditions affecting care: HTN; HLD; DM-2; ESRD on M/W/F dialysis; BPH - Differential diagnoses include, but are not limited to: Congestive heart failure; acute coronary syndrome; COPD/asthma exacerbation; pulmonary edema; pulmonary embolism; pneumonia; pneumothorax; viral syndrome - Order placed for continuous cardiac monitoring. At this time, monitor showed rate of 85 bpm with normal sinus rhythm, per my interpretation. - External medical records reviewed. EMS run sheet was reviewed. Patient was hypoxic to less than 50% on room air and started on CPAP. He was given a DuoNeb prehospital. - EKG interpreted by myself showed normal sinus rhythm. Rate 77 bpm. QT 434. No acute ischemic changes. Noted to have a left bundle branch block. - Patient's hypertension, sudden onset shortness of breath and coarse breath sounds make pulmonary edema a significant concern. He was given a dose of 0.4 mg sublingual nitro with improvement in his pressures and tachypnea. - Laboratory workup interpreted by myself showed normal WBC; stable electrolytes; elevated anion gap (13); ESRD (Cr 5.7); hyperglycemia (Glucose 483); elevated troponin (70.5); elevated BNP (1117) - CXR shows pulmonary edema, per my interpretation - Viral respiratory panel negative - VBG showed respiratory acidosis (pH 7.16; PCO2 62) - Patient given zosyn for antibiotic coverage in ER. - Patient appeared to improve on BiPAP and after sublingual nitro. - Discussion was had with casey saw operator about patient's case and need for admission - Hospitalist consulted for admission - Patient admitted to [facility] for further evaluation and management. I have personally spent 34 minutes of critical care time in the direct management of this patient. This includes bedside care, interpretation of diagnostic studies, and testing, discussion with consultants, patient, and family members, and other required patient management activities. This 34 minutes is in excess of all separately billable procedures. ASSESSMENT AND PLAN: Diagnosis: acute pulmonary edema; acute hypoxic respiratory failure; hyperglycemia; NSTEMI; elevated BNP; ESRD on hemodialysis Plan: admit Past Med/Surg History Medical History Arteriovenous fistula Left AVF creation 11/2022- now has occlusion- reason for upcoming procedure Atrial fibrillation pt unaware BPH (benign prostatic hyperplasia) BPH with obstruction/lower urinary tract symptoms Chronic kidney disease Chronic renal insufficiency FOLLOWED BY DR. CORDOVA CKD V Controlled type 2 diabetes mellitus with kidney complication, with long-term current use of insulin Hgb A1C 09/2022 was 7.7 Coronary arteriosclerosis S/p angioplasty 1990 (no stent or hx of CABG) COVID-12 Oct 2023 > resolved Cyst of kidney, acquired Dialysis patient [place] on [facility] > M,W,F Dyslipidemia Glaucoma HX OF- S/P TREATMENT- NO CURRENT ISSUES History of kidney stones Hypertension FOLLOWED BY DR. RAYO Hypothyroidism NSTEMI (non-ST elevated myocardial infarction) Aug 2023 > cath > [facility] > no stents Obesity, Class II, BMI 35-39.9 Pneumonia Sep 2023 > resolved per pt Sensorineural hearing loss (SNHL) of both ears No hearing aids Uremia Surgical History H/O eye surgery RT/LEFT EYE FOR GLAUCOMA History of angioplasty at the age of 51 History of cardiac cath Aug 2023 > cath > [facility] > no stents History of cataract surgery LEFT/RT History of colonoscopy History of ear surgery Tympanic membrane repair--per pt a couple times History of exploratory laparotomy History of lithotripsy a couple times History of surgery scrotal hernia repair History of tonsillectomy History of total left knee replacement (TKR) X 2 History of total right knee replacement History of umbilical hernia repair History of vascular access device right chest at present Family History Father Cancer of kidney Hypertension Cardiac disorder Family/Other Cancer of kidney Bone cancer Mother Bone cancer Cardiac disorder Hypertension Other No family history of adverse response to anesthesia No family history of bleeding disorder Social History Smoking Status: Never smoker Tobacco Type: Cigarettes Second Hand Exposure: No; Do You Dip or Chew Tobacco: No; Hx Alcohol Use: Yes Alcohol type: wine Alcohol type Comment: occasional Hx Substance Use: No Preferred Language: Ethiopian Communication Ability: Effective Visual Impairment: Limited Hearing Ability: Normal Window Shade Cutter Required: No Beliefs That Will Affect Care: None marital status: / Current Living Situation: Alone current occupational status: employed 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 How many Children do You have: 1 How many Children do You have Comment: Stepdaughter, 2 grandchildren Feels Safe at Home: Yes Diet: regular caffeine: Yes during the past year weight has: remained stable Dental Care, Regularly: Yes Physical Activity Frequency: 5-6 Times per Week Seatbelt Use: always Sunscreen Use: No Assistive Devices: Glasses, Walker and Wheelchair Allergies Allergies Allergy/AdvReac Type Severity Reaction Status Date / Time latex Allergy Mild SKIN Verified 01/01/24 11:04 IRRITATION Home Meds Home Medications Medication Instructions Recorded Confirmed flash glucose scanning reader 07/19/20 01/06/24 (FreeStyle [place] 14 Day [place]) flash glucose sensor (FreeStyle 07/19/20 01/06/24 Ritchie 14 Day Sensor kit) insulin glargine 100 unit/mL (3 20 unit subcut HS 11/15/23 01/06/24 mL) subcutaneous pen (Basaglar KwikPen U-100 Insulin) amiodarone 200 mg tablet 200 mg PO DAILY 12/12/23 01/06/24 amoxicillin 500 mg capsule 2,000 mg PO UD 01/01/24 01/06/24 apixaban 2.5 mg tablet (Eliquis) 2.5 mg PO Q12 01/01/24 01/06/24 clopidogrel 75 mg tablet 75 mg PO DAILY 01/01/24 01/06/24 docusate sodium 100 mg tablet 200 mg PO HS 01/01/24 01/06/24 insulin regular human 100 unit/mL 2 unit subcut DAILYBB 01/01/24 01/06/24 injection solution (Novolin R Regular U-100 Insulin) insulin regular human 100 unit/mL 4 unit subcut DAILYBL 01/01/24 01/06/24 injection solution (Novolin R Regular U-100 Insulin) insulin regular human 100 unit/mL 6 unit subcut DAILYBD 01/01/24 01/06/24 injection solution (Novolin R Regular U-100 Insulin) megestrol 40 mg tablet 40 mg PO DAILY 01/01/24 01/06/24 fluticasone propionate 50 1 spray intranasal BID 01/06/24 01/06/24 mcg/actuation nasal spray,suspension levothyroxine 50 mcg tablet 50 mcg PO DAILYBB 01/06/24 01/06/24 metoprolol succinate 50 mg 75 mg PO HS 01/06/24 01/06/24 tablet,extended release 24 hr midodrine 2.5 mg tablet 2.5 mg PO TID 01/06/24 01/06/24 pantoprazole 40 mg tablet,delayed 40 mg PO DAILYBB 01/06/24 01/06/24 release sevelamer carbonate 800 mg tablet 800 mg PO WM 01/06/24 01/06/24 tramadol 50 mg tablet 50 mg PO .Q 12 HOURS PRN pain 01/06/24 01/06/24 Previous Rx's Medication Instructions Recorded insulin syringe,safetyneedle 0.3 #700 ea 01/15/23 mL 31 gauge x 15/64" (BD SafetyGlide Insulin Syringe) insulin regular human 100 unit/mL See Rx Instructions .Route 12/06/23 (3 mL) subcutaneous pen (Novolin R .COMPLEX #9 mL FlexPen) pen needle, diabetic 31 gauge x #100 ea 12/06/23 3/16" (BD Ultra-Fine Mini Pen Needle) atorvastatin 80 mg tablet 80 mg PO QAM #90 tabs 12/10/23 multivitamin 1 tab PO DAILY #90 tabs 12/21/23 quetiapine 25 mg tablet 25 mg PO HS #30 tabs 12/21/23 Results & Data (ED) Vital Signs Vital Signs - 24 hr 01/06/24 19:39 01/06/24 19:39 01/06/24 19:58 Temperature 36.5 C Temperature Source Axillary Pulse Rate 95 H 80 Respiratory Rate 28 H 30 H Respiratory Effort / Characteristics Accessory Muscle Use Short of Breath Respiratory Depth Respiratory Pattern Blood Pressure 190/96 H 161/85 H Blood Pressure Mean 127 110 Pulse Oximetry 95 98 Oxygen Delivery Method CPAP CPAP CPAP Fraction of Inspired Oxygen Sepsis Recent Fever Within 48 Hours No Sepsis New/Unexplained Change in Mental Status No Sepsis Action Taken by Nursing No Action Required 01/06/24 20:00 01/06/24 20:05 01/06/24 20:17 Temperature Temperature Source Pulse Rate 79 76 Respiratory Rate 26 H 36 H Respiratory Effort / Characteristics Respiratory Depth Respiratory Pattern Blood Pressure 167/76 H 152/90 H Blood Pressure Mean 106 110 Pulse Oximetry 96 100 99 Oxygen Delivery Method CPAP CPAP CPAP Fraction of Inspired Oxygen Sepsis Recent Fever Within 48 Hours Sepsis New/Unexplained Change in Mental Status Sepsis Action Taken by Nursing 01/06/24 20:20 01/06/24 20:30 01/06/24 20:39 Temperature Temperature Source Pulse Rate 74 85 79 Respiratory Rate 24 25 H Respiratory Effort / Characteristics Spontaneous Labored Short of Breath Respiratory Depth Shallow Respiratory Pattern Rapid/Shallow Blood Pressure 139/86 Blood Pressure Mean 103 Pulse Oximetry 99 97 Oxygen Delivery Method CPAP Fraction of Inspired Oxygen 60 Sepsis Recent Fever Within 48 Hours Sepsis New/Unexplained Change in Mental Status Sepsis Action Taken by Nursing 01/06/24 21:00 Temperature Temperature Source Pulse Rate 85 Respiratory Rate 26 H Respiratory Effort / Characteristics Respiratory Depth Respiratory Pattern Blood Pressure 146/84 H Blood Pressure Mean 104 Pulse Oximetry 100 Oxygen Delivery Method CPAP Fraction of Inspired Oxygen Sepsis Recent Fever Within 48 Hours Sepsis New/Unexplained Change in Mental Status Sepsis Action Taken by Nursing Laboratory Data 01/06/24 19:54 01/06/24 19:54 Lab Results 01/06/24 01/06/24 Range/Units 19:54 19:55 WBC 9.55 (4.8-10.8) K/ul RBC 3.94 L (4.70-6.10) M/uL Hgb 11.7 L (14.0-18.0) g/dl Hct 39.1 L (42.0-52.0) % MCV 99.2 (80.0-100.0) fL MCH 29.7 (25.0-34.0) pg MCHC 29.9 L (32.0-36.0) g/dL RDW Std Deviation 61.1 H (36.4-46.3) fL RDW Coeff of Aysha 16.6 H (11.5-14.5) % Plt Count 281 (130-400) K/uL MPV 11.0 (9.4-12.4) fL Immature Gran % (Auto) 0.9 % Neut % (Auto) 67.2 % Lymph % (Auto) 22.9 % [place] % (Auto) 6.1 % Eos % (Auto) 2.3 % Baso % (Auto) 0.6 % Neut # (Auto) 6.41 (1.40-6.50) K/uL Lymph # (Auto) 2.19 (1.20-3.40) K/uL [place] # (Auto) 0.58 (0.11-0.59) K/uL Eos # (Auto) 0.22 (0.00-0.50) K/uL Baso # (Auto) 0.06 (0.00-0.20) K/uL Immature Gran # (Auto) 0.09 (0.01-0.20) K/uL PT 11.4 (9.0-12.0) Seconds INR 1.0 (0.9-1.1) VBG pH 7.16 L (7.36-7.41) VBG pCO2 62 H (38-50) mmHg VBG pO2 36 mmHg VBG HCO3 22 mmol/L VBG O2 Saturation < 60.0 % VBG Base Excess -7.5 mEq/L Sodium 134 L (136-145) mmol/L Potassium 5.0 (3.5-5.1) mmol/L Chloride 101 (98-107) mmol/L Carbon Dioxide 20 L (21-32) mmol/L Anion Gap 13 H (3-11) BUN 58 H (6-23) mg/dl Creatinine 5.70 H* (0.6-1.4) mg/dl Est Cr Clr Drug Dosing 11.2 ml/min Est GFR ( Amer) 9.9 ml/min Est GFR (Non-Af Amer) 8.5 ml/min BUN/Creatinine Ratio 10.2 (10-20) Glucose 483 H* (70-99(Fasting)) mg/dl Calcium 10.6 H (8.6-10.3) mg/dl Magnesium 2.1 (1.7-2.4) mg/dl Total Bilirubin 0.4 (0.2-1.0) mg/dl AST 15 (13-39) U/L ALT 5 L (7-52) U/L Alkaline Phosphatase 117 H (34-104) U/L Troponin I High Sens 70.5 H* (0-20) pg/ml B-Natriuretic Peptide 1117 H (0-100) pg/ml Total Protein 7.8 (6.0-8.3) gm/dl Albumin 4.3 (3.4-5.0) gm/dl Globulin 3.5 (2.5-4.0) gm/dl Albumin/Globulin Ratio 1.2 (0.9-2) Adenovirus (PCR) Not Detected (NotDetected) B. pertussis DNA (PCR) Not Detected (NotDetected) B.parapertussis DNA PCR Not Detected (NotDetected) C. pneumoniae DNA (PCR) Not Detected (NotDetected) Coronavirus OC43 (PCR) Not Detected (NotDetected) Coronavirus HKU1 (PCR) Not Detected (NotDetected) Coronavirus 229E (PCR) Not Detected (NotDetected) SARS-CoV-2 (PCR) Not Detected (NotDetected) Coronavirus NL63 (PCR) Not Detected (NotDetected) Human Metapneumovir PCR Not Detected (NotDetected) Influenza Type A (PCR) Not Detected (NotDetected) Influenza Type B (PCR) Not Detected (NotDetected) M. pneumoniae (PCR) Not Detected (NotDetected) Parainfluenza 1 (PCR) Not Detected (NotDetected) Parainfluenza 2 (PCR) Not Detected (NotDetected) Parainfluenza 3 (PCR) Not Detected (NotDetected) Parainfluenza 4 (PCR) Not Detected (NotDetected) RSV (PCR) Not Detected (NotDetected) Entero/Rhino (PCR) Not Detected (NotDetected) Administered Medications Discontinued Medications Piperacillin Sod/Tazobactam Sod (Zosyn) 4.5 gm in 100 mls @ 200 mls/hr IV NOW ONE Stop: 01/06/24 21:33 Last Infusion: 01/06/24 22:01 Dose: Infused Documented By: Admin: 01/06/24 21:12 Dose: 200 mls/hr Documented By: EL Miscellaneous (Rapid Sequence Induction Bag) Confirm Administered Dose 1 each N/A .STK-MED ONE Stop: 01/06/24 19:35 Last Admin: 01/06/24 22:10 Dose: Not Given Documented By: JIL Nitroglycerin (Nitroglycerin Sl 0.4 Mg/Tab Tab) Confirm Administered Dose 0.4 mg .ROUTE .STK-MED ONE Stop: 01/06/24 19:43 Last Admin: 01/06/24 19:51 Dose: 0.4 mg Documented By: EL Imaging Data Radiologist's Impression: Chest X-Ray 01/06/24 19:40 XR chest 1V portable HISTORY: 83 years-old Male Dyspnea acute shortness of breath COMPARISON: 10/15/2023 TECHNIQUE: AP view of the chest FINDINGS: Cardiac silhouette is enlarged. Dual-lumen right IJ hemodialysis catheter distal tip terminates in the expected location of the mid SVC. No pneumothorax. Small pleural effusions with perivascular congestion and diffuse interstitial coarsening. Bibasilar diffuse left lung airspace opacities. The bones appear grossly intact. Right-sided rotator cuff calcific tendinosis. IMPRESSION: 1. Cardiomegaly with pulmonary edema with small pleural effusions. 2. Airspace opacities throughout the left lung may represent asymmetric alveolar pulmonary edema versus multifocal pneumonia. ACT 112: Negative or not required by law. The above report was generated using voice recognition software. It may contain grammatical, syntax or spelling errors. Electronically signed by: Gary Linton M.D. 01/06/2024 7:50 PM Discharge Plan Visit Data Chief Complaint: Shortness of Breath/Dyspnea Stated Complaint: SHORT OF BREATH, EDEMA ED Provider: Betina Calderón Discharge Problem: Acute pulmonary edema, Acute hypoxemic respiratory failure, Non-ST elevation GA (NSTEMI), Elevated brain natriuretic peptide (BNP) level, ESRD (end stage renal disease) on dialysis, Hyperglycemia Forms Stand Alone Forms: [facility] DGSE Prescriptions Prescriptions: No Action (DME) BD SafetyGlide Insulin Syringe 0.3 mL 31 gauge x 15/64" syringe MISCELLANEOUS Qty: 700 3RF Rx Instructions: Use 7 times daily insulin glargine [Basaglar KwikPen U-100 Insulin] 100 unit/mL (3 mL) insulin pen 20 unit subcut HS (DME) pen needle, diabetic [BD Ultra-Fine Mini Pen Needle] 31 gauge x 3/16" needle See Rx Instructions .ROUTE .COMPLEX Qty: 100 11RF Dose Instruction: USE FOR INSULIN INJECTION NEEDED Rx Instructions: USE FOR INSULIN INJECTION NEEDED Novolin R FlexPen 100 unit/mL (3 mL) insulin pen See Rx Instructions .ROUTE .COMPLEX Qty: 9 11RF Dose Instruction: SLIDING SCALE: (ROTATE SITES) FOUR TIMES DAILY SUBQ 141-175=1UNIT; 176- 210=2UNITS; 211-245=3UNITS; 246-280=4UNITS; 246-280=4UNITS; 281-315=5UNITS; 316- 350=6UNITS Rx Instructions: SLIDING SCALE: (ROTATE SITES) FOUR TIMES DAILY SUBQ 141-175=1UNIT; 176- 210=2UNITS; 211-245=3UNITS; 246-280=4UNITS; 246-280=4UNITS; 281-315=5UNITS; 316- 350=6UNITS atorvastatin 80 mg tablet 80 mg PO QAM Qty: 90 3RF multivitamin Tablet 1 tab PO DAILY Qty: 90 3RF quetiapine 25 mg tablet 25 mg PO HS Qty: 30 5RF amiodarone 200 mg tablet 200 mg PO DAILY Dose Instruction: 1 TAB BY MOUTH EVERY DAY (DME) FreeStyle [place]itchie 14 Day Sensor Kit MISCELLANEOUS (DME) FreeStyle [employer] 14 Day [place] Misc MISCELLANEOUS amoxicillin 500 mg capsule 2,000 mg PO UD Rx Instructions: 1 hr prior to dental procedure. megestrol 40 mg tablet 40 mg PO DAILY Novolin R Regular U100 Insulin 100 unit/mL Solution 2 unit SUBCUT DAILYBB Novolin R Regular U100 Insulin 100 unit/mL Solution 6 unit SUBCUT DAILYBD Novolin R Regular U100 Insulin 100 unit/mL Solution 4 unit SUBCUT DAILYBL clopidogrel 75 mg tablet 75 mg PO DAILY docusate sodium 100 mg tablet 200 mg PO HS Eliquis 2.5 mg tablet 2.5 mg PO Q12 fluticasone propionate 50 mcg/actuation spray,suspension 1 spray intranasal BID tramadol 50 mg tablet 50 mg PO .Q 12 HOURS PRN (Reason: pain) levothyroxine 50 mcg tablet 50 mcg PO DAILYBB Rx Instructions: 1 TAB BY MOUTH EVERY MORNING TAKE ON AN EMPTY STOMACH WITH A FULL GLASS OF WATER WAIT 30 MINUTES TO EAT, DRINK OR TAKE MEDICATIONS pantoprazole 40 mg tablet,delayed release (DR/EC) 40 mg PO DAILYBB Rx Instructions: 1 TAB BY MOUTH EVERY MORNING *DO NOT CRUSH* sevelamer carbonate 800 mg tablet 800 mg PO WM Rx Instructions: 1 TAB BY MOUTH THREE TIMES DAILY WITH MEALS metoprolol succinate 50 mg tablet extended release 24 hr 75 mg PO HS Rx Instructions: 1.5 TABS BY MOUTH AT BEDTIME midodrine 2.5 mg tablet 2.5 mg PO TID Rx Instructions: 1 TAB BY MOUTH THREE TIMES DAILY (0800/1200/1700) Referrals Referrals: Orly Dickson MD [Primary Care Provider] -
[2024-01-06 20:14] LABS: Basophils # (auto) 0.06 K/uL (0.00-0.20); Basophils % (auto) 0.6 %; Eosinophils # (auto) 0.22 K/uL (0.00-0.50); Eosinophils % (auto) 2.3 %; Hematocrit (blood only) 39.1 % (42.0-52.0); Hemoglobin 11.7 g/dl (14.0-18.0); Immature Granulocytes # (auto) 0.09 K/uL (0.01-0.20); Immature Granulocytes % (auto) 0.9 %; Lymphocytes # (auto) 2.19 K/uL (1.20-3.40); Lymphocytes % (auto) 22.9 %; Mean Corpuscular Hemoglobin 29.7 pg (25.0-34.0); Mean Corpuscular Hgb Conc 29.9 g/dL (32.0-36.0); Mean Corpuscular Volume 99.2 fL (80.0-100.0); Monocytes # (auto) 0.58 K/uL (0.11-0.59); Monocytes % (auto) 6.1 %; Neutrophils # (auto) 6.41 K/uL (1.40-6.50); Neutrophils % (auto) 67.2 %; Platelet Count 281 K/uL (130-400); RDW Coefficient of Variation 16.6 % (11.5-14.5); RDW Standard Deviation 61.1 fL (36.4-46.3); Red Blood Count 3.94 M/uL (4.70-6.10); White Blood Count 9.55 K/ul (4.8-10.8)
[2024-01-06 20:29] LABS: Albumin Globulin Ratio 1.2 (0.9-2); Albumin Level 4.3 gm/dl (3.4-5.0); BUN Creatinine Ratio 10.2 (10-20); Bilirubin,Total 0.4 mg/dl (0.2-1.0); Calcium 10.6 mg/dl (8.6-10.3); Creatinine Clr Calc Pharmacy 11.2 ml/min; Est GFR (African American) 9.9 ml/min; Est GFR (Non-African American) 8.5 ml/min; Globulin 3.5 gm/dl (2.5-4.0); Magnesium 2.1 mg/dl (1.7-2.4); Total Protein 7.8 gm/dl (6.0-8.3)
[2024-01-06 20:36] LABS: Prothrombin Time 11.4 Seconds (9.0-12.0)
[2024-01-06 20:37] LABS: Troponin I High Sensitivity 70.5 pg/ml (0-20)
[2024-01-06 20:56] LABS: Adenovirus PCR Not Detected (NotDetected); Bordetella parapertussis PCR Not Detected (NotDetected); Bordetella pertussis PCR Not Detected (NotDetected); Chlamydia pneumoniae PCR Not Detected (NotDetected); Coronavirus 229E PCR Not Detected (NotDetected); Coronavirus CoV-2 (COVID19)PCR Not Detected (NotDetected); Coronavirus HKU1 PCR Not Detected (NotDetected); Coronavirus NL63 PCR Not Detected (NotDetected); Coronavirus OC43PCR Not Detected (NotDetected); Human Metapneumovirus PCR Not Detected (NotDetected); Influenza A PCR Not Detected (NotDetected); Influenza B PCR Not Detected (NotDetected); Mycoplasma pneumoniae PCR Not Detected (NotDetected); Parainfluenza Virus 1 PCR Not Detected (NotDetected); Parainfluenza Virus 2 PCR Not Detected (NotDetected); Parainfluenza Virus 3 PCR Not Detected (NotDetected); Parainfluenza Virus 4 PCR Not Detected (NotDetected); Respiratory Syncytial VirusPCR Not Detected (NotDetected); Rhinovirus/Enterovirus PCR Not Detected (NotDetected)
[2024-01-06] MEDS: PIPERACILLIN/TAZOBACTAM 4.5 GM/100 ML BAG IV ONE (21:12)
--- NOTE | 2024-01-06 22:04 | History & Physical Report ---
Date of Service January 06, 2024 Assessment & Plan (1) Acute hypoxemic respiratory failure: Plan: Etiology unclear. Patient reports he was feeling well, no edema, orthopnea, cough, SOB or fever preceding today's event. He denies aspiration. Possible flash pulmonary edema. Patient hypertensive on arrival. Clinically improving following Lasix administration and BiPAP -Admit to PCU -Wean BiPAP as able -Lasix 40mg IV given -Nephrology consultation appreciated - is due for HD later today (2) Hyperglycemia: Plan: Patient with DM on Glargine 20u qHS and ISS at home. Last [id number]=3.7 on 10/02/22. Hyperglycemic here with BSG of 420 -Given 10u IV Regular insulin x 2 doses and Novolog 8u in the ER -Continue Lantus 10u BID and ISS -Goal blood sugar 110 - 140 (3) ESRD (end stage renal disease) on dialysis: Plan: Patient with ESRD on HD q M/W/F. He had a full treatment on Sunday. He reports that they typically take of 1L of fluid. He still does make some urine -Lasix 40mg IV given -Continue Renagel -Nephrology consultation appreciated for HD (4) Hypertension: Plan: Blood pressure improved -Continue Metoprolol -Will hold Midodrine for now given hypertension on arrival (5) Dyslipidemia: Plan: Chronic. Stable -Continue Atorvastatin (6) Atrial fibrillation: Plan: Chronic. Rate controlled. -Continue Metoprolol 75mg po qHS -Continue Amiodarone 200mg po daily -Continue Apixaban History of Present Illness Chief Complaint: shortness of breath Primary Care Provider: Orly Dickson MD Davin Gaviria is a pleasant 83yo male with history of ESRD on HD q M/W/F, DM, HTN, HLP, ICM presenting with acute onset of respiratory distress with acute hypoxic respiratory failure. Patient has been in his usual state of health. No new symptoms or complaints over the last several days. Patient resides at [facility]. He ate dinner - grilled cheese with tomato and tomato soup then got up to walk to his room. He was able to walk to his room - appx 10 minute walk - no symptoms. He then sat down on his bed and became acutely short of breath. He was unable to catch his breath so he called for help. Staff members called EMS. Per report, patient was quite hypoxic with saturations initially in the 50's. He was given a DuoNeb and placed on CPAP and transported to [facility]. Upon arrival to the ER patient tachypneic and hypertensive at 190/96. He was transitioned to BiPAP. Symptoms have improved. He reports having some substernal chest discomfort and abdominal pain after dinner which has since resolved. Patient denies chest pain, palpitations, weight gain, orthopnea, nausea, vomiting, abdominal pain. NO additional complaints at this time. No use of O2 or CPAP at home Allergies Allergy/AdvReac Type Severity Reaction Status Date / Time latex Allergy Mild SKIN Verified 01/01/24 11:04 IRRITATION Home Medications Medication Instructions Recorded Confirmed Type flash glucose scanning reader 07/19/20 01/06/24 History (FreeStyle Ritchie 14 Day [place]) flash glucose sensor (FreeStyle 07/19/20 01/06/24 History Ritchie 14 Day Sensor kit) insulin syringe,safetyneedle 0.3 #700 ea 01/15/23 01/06/24 Rx mL 31 gauge x 15/64" (BD SafetyGlide Insulin Syringe) insulin glargine 100 unit/mL (3 20 unit subcut HS 11/15/23 01/06/24 History mL) subcutaneous pen (Basaglar KwikPen U-100 Insulin) insulin regular human 100 unit/mL See Rx Instructions .Route 12/06/23 01/06/24 Rx (3 mL) subcutaneous pen (Novolin R .COMPLEX #9 mL FlexPen) pen needle, diabetic 31 gauge x #100 ea 12/06/23 01/06/24 Rx 3/16" (BD Ultra-Fine Mini Pen Needle) atorvastatin 80 mg tablet 80 mg PO QAM #90 tabs 12/10/23 01/06/24 Rx amiodarone 200 mg tablet 200 mg PO DAILY 12/12/23 01/06/24 History multivitamin 1 tab PO DAILY #90 tabs 12/21/23 01/06/24 Rx quetiapine 25 mg tablet 25 mg PO HS #30 tabs 12/21/23 01/06/24 Rx amoxicillin 500 mg capsule 2,000 mg PO UD 01/01/24 01/06/24 History apixaban 2.5 mg tablet (Eliquis) 2.5 mg PO Q12 01/01/24 01/06/24 History clopidogrel 75 mg tablet 75 mg PO DAILY 01/01/24 01/06/24 History docusate sodium 100 mg tablet 200 mg PO HS 01/01/24 01/06/24 History insulin regular human 100 unit/mL 2 unit subcut DAILYBB 01/01/24 01/06/24 History injection solution (Novolin R Regular U-100 Insulin) insulin regular human 100 unit/mL 4 unit subcut DAILYBL 01/01/24 01/06/24 History injection solution (Novolin R Regular U-100 Insulin) insulin regular human 100 unit/mL 6 unit subcut DAILYBD 01/01/24 01/06/24 History injection solution (Novolin R Regular U-100 Insulin) megestrol 40 mg tablet 40 mg PO DAILY 01/01/24 01/06/24 History fluticasone propionate 50 1 spray intranasal BID 01/06/24 01/06/24 History mcg/actuation nasal spray,suspension levothyroxine 50 mcg tablet 50 mcg PO DAILYBB 01/06/24 01/06/24 History metoprolol succinate 50 mg 75 mg PO HS 01/06/24 01/06/24 History tablet,extended release 24 hr midodrine 2.5 mg tablet 2.5 mg PO TID 01/06/24 01/06/24 History pantoprazole 40 mg tablet,delayed 40 mg PO DAILYBB 01/06/24 01/06/24 History release sevelamer carbonate 800 mg tablet 800 mg PO WM 01/06/24 01/06/24 History tramadol 50 mg tablet 50 mg PO .Q 12 HOURS PRN pain 01/06/24 01/06/24 History Past Med/Surg History Medical History (Updated 01/07/24 @ 02:56 by Cheryl Cruz DO) NSTEMI (non-ST elevated myocardial infarction) Aug 2023 > cath > [facility] > no stents Atrial fibrillation pt unaware Dialysis patient [place] 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 CORDOVA CKD V Controlled type 2 diabetes mellitus with kidney complication, with long-term current use of insulin Hgb A1C 09/2022 was 7.7 Coronary arteriosclerosis S/p angioplasty 1990 (no stent or hx of CABG) Cyst of kidney, acquired Dyslipidemia Hypertension FOLLOWED BY DR. RAYO Hypothyroidism Obesity, Class II, BMI 35-39.9 Surgical History History of cardiac cath Aug 2023 > cath > [facility] > no stents History of vascular access device right chest at present History of total right knee replacement H/O eye surgery RT/LEFT EYE FOR GLAUCOMA History of cataract surgery LEFT/RT History of total left knee replacement (TKR) X 2 History of lithotripsy a couple times History of tonsillectomy History of angioplasty at the age of 51 History of surgery scrotal hernia repair History of exploratory laparotomy History of umbilical hernia repair History of colonoscopy History of ear surgery Tympanic membrane repair--per pt a couple times Family History Father Cancer of kidney Hypertension Cardiac disorder Family/Other Cancer of kidney Bone cancer Mother Bone cancer Cardiac disorder Hypertension Other No family history of adverse response to anesthesia No family history of bleeding disorder Social History Smoking Status: Never smoker Tobacco Type: Cigarettes Second Hand Exposure: No; Do You Dip or Chew Tobacco: No; Hx Alcohol Use: No Hx Substance Use: No Preferred Language: Georgian Communication Ability: Effective Visual Impairment: Limited Hearing Ability: Normal Respiratory Support Technician Required: No Beliefs That Will Affect Care: None marital status: / Current Living Situation: Residential current occupational status: employed 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 How many Children do You have: 1 How many Children do You have Comment: Stepdaughter, 2 grandchildren Other Information That Helps Us Care for You: No Feels Safe at Home: Yes Safety Concerns: Feels Safe At This Time Diet: regular caffeine: Yes during the past year weight has: remained stable Dental Care, Regularly: Yes Physical Activity Frequency: 5-6 Times per Week Seatbelt Use: always Sunscreen Use: No Assistive Devices: Glasses and Walker Review of Systems Review of Systems: All systems reviewed & are unremarkable except as noted in HPI & below Physical Exam Physical Exam: General: patient resting comfortably, NAD, non-toxic in appearance, AA&O x 4, BiPAP in place 18/8, 50% Skin: warm, dry, intact, no rashes or lesions HEENT: NC/AT, PERRL, EOMI, anicteric sclera, conjunctiva without injection, external ear normal to inspection and nontender, nares patent, moist mucus membranes, dentition intact, no oropharyngeal lesions, neck supple, trachea midline, no LAD, no thyromegaly, no JVD Heart: +S1/S2, regular, no m/r/g Lungs: equal air entry bilaterally, coarse breath sounds, no wheeze Abd: +BS, soft, NT/ND, no masses/organomegaly/ascites Ext: warm, 2+ pulses in UE/LE bilaterally, no clubbing/cyanosis or edema Neuro: nonfocal, patient AA&O x 4, speech intact, no facial droop, moving all extremities on command with equal strength 5/5 Results & Data Results & Data Vital Signs (Past 12 Hours) Vital Signs Temp Pulse Resp BP Pulse Ox O2 Del Method FiO2 01/06/24 21:00 85 26 H 146/84 H 100 CPAP 01/06/24 20:39 79 25 H 97 60 01/06/24 20:30 85 24 139/86 99 CPAP 01/06/24 20:20 74 01/06/24 20:17 76 36 H 152/90 H 99 CPAP 01/06/24 20:05 100 CPAP 01/06/24 20:00 79 26 H 167/76 H 96 CPAP 01/06/24 19:58 80 30 H 161/85 H 98 CPAP 01/06/24 19:39 CPAP 01/06/24 19:39 36.5 C 95 H 28 H 190/96 H 95 CPAP Laboratory Results Laboratory Results WBC 9.55 K/ul (4.8-10.8) 01/06/24 19:54 RBC 3.94 M/uL (4.70-6.10) L 01/06/24 19:54 Hgb 11.7 g/dl (14.0-18.0) L 01/06/24 19:54 Hct 39.1 % (42.0-52.0) L 01/06/24 19:54 MCV 99.2 fL (80.0-100.0) 01/06/24 19:54 MCH 29.7 pg (25.0-34.0) 01/06/24 19:54 MCHC 29.9 g/dL (32.0-36.0) L 01/06/24 19:54 RDW Std Deviation 61.1 fL (36.4-46.3) H 01/06/24 19:54 RDW Coeff of Aysha 16.6 % (11.5-14.5) H 01/06/24 19:54 Plt Count 281 K/uL (130-400) 01/06/24 19:54 MPV 11.0 fL (9.4-12.4) 01/06/24 19:54 Immature Gran % (Auto) 0.9 % 01/06/24 19:54 Neut % (Auto) 67.2 % 01/06/24 19:54 Lymph % (Auto) 22.9 % 01/06/24 19:54 [place] % (Auto) 6.1 % 01/06/24 19:54 Eos % (Auto) 2.3 % 01/06/24 19:54 Baso % (Auto) 0.6 % 01/06/24 19:54 Neut # (Auto) 6.41 K/uL (1.40-6.50) 01/06/24 19:54 Lymph # (Auto) 2.19 K/uL (1.20-3.40) 01/06/24 19:54 [place] # (Auto) 0.58 K/uL (0.11-0.59) 01/06/24 19:54 Eos # (Auto) 0.22 K/uL (0.00-0.50) 01/06/24 19:54 Baso # (Auto) 0.06 K/uL (0.00-0.20) 01/06/24 19:54 Immature Gran # (Auto) 0.09 K/uL (0.01-0.20) 01/06/24 19:54 PT 11.4 Seconds (9.0-12.0) 01/06/24 19:54 INR 1.0 (0.9-1.1) 01/06/24 19:54 VBG pH 7.16 (7.36-7.41) L 01/06/24 19:54 VBG pCO2 62 mmHg (38-50) H 01/06/24 19:54 VBG pO2 36 mmHg 01/06/24 19:54 VBG HCO3 22 mmol/L 01/06/24 19:54 VBG O2 Saturation < 60.0 % 01/06/24 19:54 VBG Base Excess -7.5 mEq/L 01/06/24 19:54 Sodium 134 mmol/L (136-145) L 01/06/24 19:54 Potassium 5.0 mmol/L (3.5-5.1) 01/06/24 19:54 Chloride 101 mmol/L (98-107) 01/06/24 19:54 Carbon Dioxide 20 mmol/L (21-32) L 01/06/24 19:54 Anion Gap 13 (3-11) H 01/06/24 19:54 BUN 58 mg/dl (6-23) H 01/06/24 19:54 Creatinine 5.70 mg/dl (0.6-1.4) H* 01/06/24 19:54 Est Cr Clr Drug Dosing 11.2 ml/min 01/06/24 19:54 Est GFR ( Amer) 9.9 ml/min 01/06/24 19:54 Est GFR (Non-Af Amer) 8.5 ml/min 01/06/24 19:54 BUN/Creatinine Ratio 10.2 (10-20) 01/06/24 19:54 Glucose 483 mg/dl (70-99(Fasting)) H* 01/06/24 19:54 POC Glucose 306 mg/dl (70-99) H* 01/07/24 02:00 Calcium 10.6 mg/dl (8.6-10.3) H 01/06/24 19:54 Magnesium 2.1 mg/dl (1.7-2.4) 01/06/24 19:54 Total Bilirubin 0.4 mg/dl (0.2-1.0) 01/06/24 19:54 AST 15 U/L (13-39) 01/06/24 19:54 ALT 5 U/L (7-52) L 01/06/24 19:54 Alkaline Phosphatase 117 U/L (34-104) H 01/06/24 19:54 Troponin I High Sens 134.9 pg/ml (0-20) H* D 01/06/24 21:50 B-Natriuretic Peptide 1117 pg/ml (0-100) H 01/06/24 19:54 Total Protein 7.8 gm/dl (6.0-8.3) 01/06/24 19:54 Albumin 4.3 gm/dl (3.4-5.0) 01/06/24 19:54 Globulin 3.5 gm/dl (2.5-4.0) 01/06/24 19:54 Albumin/Globulin Ratio 1.2 (0.9-2) 01/06/24 19:54 Adenovirus (PCR) Not Detected (NotDetected) 01/06/24 19:55 B. pertussis DNA (PCR) Not Detected (NotDetected) 01/06/24 19:55 B.parapertussis DNA PCR Not Detected (NotDetected) 01/06/24 19:55 C. pneumoniae DNA (PCR) Not Detected (NotDetected) 01/06/24 19:55 Coronavirus OC43 (PCR) Not Detected (NotDetected) 01/06/24 19:55 Coronavirus HKU1 (PCR) Not Detected (NotDetected) 01/06/24 19:55 Coronavirus 229E (PCR) Not Detected (NotDetected) 01/06/24 19:55 SARS-CoV-2 (PCR) Not Detected (NotDetected) 01/06/24 19:55 Coronavirus NL63 (PCR) Not Detected (NotDetected) 01/06/24 19:55 Human Metapneumovir PCR Not Detected (NotDetected) 01/06/24 19:55 Influenza Type A (PCR) Not Detected (NotDetected) 01/06/24 19:55 Influenza Type B (PCR) Not Detected (NotDetected) 01/06/24 19:55 M. pneumoniae (PCR) Not Detected (NotDetected) 01/06/24 19:55 Parainfluenza 1 (PCR) Not Detected (NotDetected) 01/06/24 19:55 Parainfluenza 2 (PCR) Not Detected (NotDetected) 01/06/24 19:55 Parainfluenza 3 (PCR) Not Detected (NotDetected) 01/06/24 19:55 Parainfluenza 4 (PCR) Not Detected (NotDetected) 01/06/24 19:55 RSV (PCR) Not Detected (NotDetected) 01/06/24 19:55 Entero/Rhino (PCR) Not Detected (NotDetected) 01/06/24 19:55 Impressions Chest X-Ray 01/06/24 19:40 XR chest 1V portable HISTORY: 83 years-old Male Dyspnea acute shortness of breath COMPARISON: 10/15/2023 TECHNIQUE: AP view of the chest FINDINGS: Cardiac silhouette is enlarged. Dual-lumen right IJ hemodialysis catheter distal tip terminates in the expected location of the mid SVC. No pneumothorax. Small pleural effusions with perivascular congestion and diffuse interstitial coarsening. Bibasilar diffuse left lung airspace opacities. The bones appear grossly intact. Right-sided rotator cuff calcific tendinosis. IMPRESSION: 1. Cardiomegaly with pulmonary edema with small pleural effusions. 2. Airspace opacities throughout the left lung may represent asymmetric alveolar pulmonary edema versus multifocal pneumonia. ACT 112: Negative or not required by law. The above report was generated using voice recognition software. It may contain grammatical, syntax or spelling errors. Electronically signed by: Gary Linton M.D. 01/06/2024 7:50 PM ECG Additional Comments: EKG with AF iwth PVCs, 89bpm, Left axis deviation, no acute ischemia PG Care Time/CCT Total # of Minutes Spent Total Time Spent with Patient: Total time spent is greater than 50% in coordination of care (as documented) at patient's floor/unit and/or counseling patient: Coding Level of Care Code 43389 INT INP/OBS CARE 3/75MIN Diagnoses Acute hypoxemic respiratory failure J96.01 Hyperglycemia R73.9 ESRD (end stage renal disease) on dialysis N18.6; Z99.2 Hypertension secondary to other renal disorders I15.1; N28.89 Hypertension type: secondary to other renal disorders Dyslipidemia E78.5 Atrial fibrillation I48.91 (4) Hypertension Hypertension type: secondary to other renal disorders Qualified Code(s): I15.1 - Hypertension secondary to other renal disorders; N28.89 - Other specified disorders of kidney and ureter
[2024-01-06] MEDS: RAPID SEQUENCE INDUCTION BAG ONE (22:10)
[2024-01-06] MEDS: INSULIN ASPART PER UNIT CHARGE SC STA (22:21)
[2024-01-06] MEDS: NovoLIN-R INSULIN PER UNIT CHARGE IV STA (22:24)
[2024-01-07] MEDS ORDERED: NovoLIN-R INSULIN PER UNIT CHARGE IV STA (00:11)
[2024-01-07] MEDS ORDERED: ACETAMINOPHEN 325 MG TAB PO PRN (00:11)
[2024-01-07] MEDS ORDERED: CARBOHYDRATES FOR HYPOGLYCEMIA PO PRN (00:11)
[2024-01-07] MEDS ORDERED: GLUCOSE 10 TAB/TUBE PO PRN (00:11)
[2024-01-07] MEDS ORDERED: GLUCAGON FOR INJ 1 MG VIAL SQ PRN (00:11)
[2024-01-07] MEDS ORDERED: DEXTROSE 50% 50 ML SYRINGE IV PRN (00:11)
[2024-01-07] MEDS ORDERED: GLUCOSE 40% GEL 15 GM TUBE PO PRN (00:11)
[2024-01-07] MEDS ORDERED: ONDANSETRON INJ 2 MG/ML 2 ML VIAL IV PRN (00:11)
[2024-01-07] MEDS: FUROSEMIDE 40 MG/4 ML VIAL IV ONE (00:42)
[2024-01-07] MEDS: INSULIN HUMAN REGULAR PER UNIT 10 UNITS in SYRINGE 9.9 ML IV ONE (00:42)
[2024-01-07] MEDS: LEVOTHYROXINE SODIUM 50 MCG TABLET PO SCH (05:25)
[2024-01-07] MEDS: PANTOprazole 40 MG TAB PO SCH (05:25)
[2024-01-07] MEDS: INSULIN ASPART PER UNIT CHARGE SC SCH (07:43)
[2024-01-07] MEDS: MEGESTROL ACETATE 40 MG TAB PO SCH (08:04)
[2024-01-07] MEDS: CLOPIDOGREL BISULFATE 75 MG TAB PO SCH (08:04)
[2024-01-07] MEDS: APIXABAN 2.5 MG TAB PO SCH (08:05)
[2024-01-07] MEDS: SEVELAMER HCL 800 MG TABLET PO SCH (08:05)
[2024-01-07] MEDS: AMIODARONE 200 MG TAB PO SCH (08:05)
[2024-01-07] MEDS: FLUTICASONE PROPIONATE NA SPR 16 GM BTL SCH (08:05)
[2024-01-07] MEDS: ATORVASTATIN 40 MG TAB PO SCH (08:05)
[2024-01-07] MEDS: LANTUS PER UNIT CHARGE SQ SCH (08:09)
[2024-01-07 08:44] LABS: Hematocrit (blood only) 33.6 % (42.0-52.0); Hemoglobin 10.5 g/dl (14.0-18.0); Mean Corpuscular Hemoglobin 29.7 pg (25.0-34.0); Mean Corpuscular Hgb Conc 31.3 g/dL (32.0-36.0); Mean Corpuscular Volume 94.9 fL (80.0-100.0); Mean Platelet Volume 10.9 fL (9.4-12.4); Platelet Count 229 K/uL (130-400); RDW Coefficient of Variation 16.9 % (11.5-14.5); RDW Standard Deviation 58.4 fL (36.4-46.3); Red Blood Count 3.54 M/uL (4.70-6.10); White Blood Count 7.03 K/ul (4.8-10.8)
--- NOTE | 2024-01-07 08:52 | Electrocardiogram Report ---
Test Reason : Blood Pressure : / mmHG Vent. Rate : 089 BPM Atrial Rate : 000 BPM P-R Int : 000 ms QRS Dur : 124 ms QT Int : 392 ms P-R-T Axes : 000 -39 082 degrees QTc Int : 476 ms Poor data quality, interpretation may be adversely affected Sinus rhythm Left axis deviation Left ventricular hypertrophy with QRS widening and repolarization abnormality Cannot rule out Septal infarct (cited on or before 03-OCT-2023) Abnormal ECG When compared with ECG of 16-NOV-2023 13:49, (unconfirmed) T wave inversion no longer evident in Anterior leads Confirmed by David Zhou ([id number]) on 01/07/2024 8:52:28 AM Referred By: REFERRED SELF Confirmed By:Haim Zhou
[2024-01-07] MEDS: hydrALAZINE HCL 20 MG/ML VIAL IV STA (08:55)
[2024-01-07] MEDS: NITROGLYCERIN 2% OINTMENT 30GM TUBE EXT SCH (08:56)
--- NOTE | 2024-01-07 09:02 | Electrocardiogram Report ---
Test Reason : Blood Pressure : / mmHG Vent. Rate : 098 BPM Atrial Rate : 098 BPM P-R Int : 212 ms QRS Dur : 126 ms QT Int : 368 ms P-R-T Axes : 078 -35 094 degrees QTc Int : 469 ms Sinus rhythm with sinus arrhythmia with 1st degree A-V block Left axis deviation Left ventricular hypertrophy with QRS widening and repolarization abnormality Abnormal ECG When compared with ECG of 06-JAN-2024 20:26, (unconfirmed) No significant change was found Confirmed by David Zhou ([id number]) on 01/07/2024 9:02:14 AM Referred By: REFERRED SELF Confirmed By:Haim Zhou
[2024-01-07 09:03] LABS: BUN Creatinine Ratio 10.9 (10-20); Bilirubin Direct 0.1 mg/dl (0-0.2); Bilirubin,Total 0.6 mg/dl (0.2-1.0); Calcium 10.8 mg/dl (8.6-10.3); Creatinine Clr Calc Pharmacy 10.7 ml/min; Est GFR (African American) 9.9 ml/min; Est GFR (Non-African American) 8.6 ml/min; Potassium 5.4 mmol/L (3.5-5.1)
[2024-01-07 09:10] LABS: Troponin I High Sensitivity 354.7 pg/ml (0-20)
[2024-01-07 09:13] LABS: iSTAT Arterial Blood Gas HCO3 20 meg/L (19-24); iSTAT Arterial Blood Gas pCO2 37 mmHg (35-46); iSTAT Arterial Blood Gas pH 7.34 (7.35-7.45); iSTAT Arterial Blood Gas pO2 67 mmHg (80-95); iSTAT Carbon Dioxide 21 mmol/L (24-31); iSTAT Hematocrit 36 % (42-52); iSTAT Hemoglobin 12.2 g/dl (14.0-18.0); iSTAT Potassium 5.1 mmol/L (3.3-5.0); iSTAT Sodium 137 mmol/L (135-144)
[2024-01-07] MEDS: hydrALAZINE HCL 20 MG/ML VIAL ONE (09:28)
--- NOTE | 2024-01-07 10:29 | XRay Report ---
XR chest 1V portable HISTORY: Shortness of breath. COMPARISON: Chest 01/06/2024. FINDINGS: No pneumothorax. The heart remains enlarged. Small bilateral pleural effusions persist. A r ight jugular catheter terminates in the SVC. Moderate pulmonary edema is again noted. Left lung airsp tanya opacities have slightly progressed. Bibasilar densities persist. IMPRESSION: 1. Left lung airspace opacities have progressed. This could represent pneumonia or worsening pulmonar y edema. 2. Cardiomegaly, moderate pulmonary edema, and small bilateral pleural effusions/densities persist. ACT 112: Negative or not required by law. Electronically signed by: Socrates Keith M.D. 01/07/2024 10:28 AM
--- NOTE | 2024-01-07 10:30 | Nephrology Consultation ---
Date of Consultation January 07, 2024 Assessment & Plan (1) ESRD (end stage renal disease) on dialysis: IHD MWF. Orders for emergent HD today were entered into the EHR and reviewed with the diaylsis RN. Davin was seen and evaluated during hemodialysis. Qb at goal. BP acceptable. Tolerating treatment well. Medications appropriate for kidney function. Nitropatch discontinued. Renal diet. Fluid restriction 1.2 L/d. Sevelamer QAC. (2) Acute hypoxemic respiratory failure: Signs of acute pulmonary edema. Hypervolemic. UF adjusted accordingly. (3) Acute pulmonary edema: (4) Accelerated hypertension: Improving with HD. Continue home medications as Rx. Midodrine held. (5) Anemia: Chronic, stable. Maintained on Micera as outpatient. History of Present Illness Reason for Consultation: ESRD on HD Requesting Physician: Gregory Marc MD Attending Physician: Gregory Marc MD History of Present Illness Mr. Gaviria is an 83 year old-male ESRD due to DKD, hypertensive nephrosclerosis. He is maintained on in-centre HD at [facility] under my care. Mr. Gaviria dialyzes on a MWF schedule. He completed dialysis on Sunday without complications. Mr. Gaviria underwent L RC AVF 12/[address] Godinez. Unfortunately, this failed. L BC AVF was then created 07/03/23 requiring revision with graft placement. Surgery was completed December 31. His medical history is also significant for AODM, HTN, hypothyroidism, h/o kidney stones, hyperlipidemia, bilateral SNHL, and ASCVD. Mr. Gaviria was last hospitalized at [facility] in August 2023 due to NSTEMI. TTE revealed LVEF 45-50% w/ WMA. Cardiac catheterization 09/19/23 revealed severe obstructive coronary disease involving the LAD and left circumflex systems (100% LAD after 1st diagonal branch, 90% proximal L circumflex). Mr. Gaviria was transferred to [facility] for rehab following the hospitalization. Unfortunately, he was readmitted in September with COVID + progressive kidney dysfunction requiring dialysis. HD was coordinated emergently during the hospitalization via catheter placement. He is now residing in [facility]. He developed severe and fairly acute shortness of breath with accelerated hypertension yesterday. Respiratory distress was temporized with BIPAP and nitroglycerin overnight. Diuretics were provided to encourage urine output. This morning, rapid response team was called to the bedside for respiratory distress. I was contacted by Dr. Marc and emergent HD was coordinated for volume overload. Davin was seen and evaluated prior to and during hemodialysis this morning. Improvement noted with UF. He is tolerating dialysis well. Qb at goal via TDC. Nitro patch removed. Allergies Allergy/AdvReac Type Severity Reaction Status Date / Time latex Allergy Mild SKIN Verified 01/01/24 11:04 IRRITATION Home Medications Medication Instructions Recorded Confirmed Type flash glucose scanning reader 07/19/20 01/06/24 History (FreeStyle Ritchie 14 Day [place]) flash glucose sensor (FreeStyle 07/19/20 01/06/24 History Ritchie 14 Day Sensor kit) insulin syringe,safetyneedle 0.3 #700 ea 01/15/23 01/06/24 Rx mL 31 gauge x 15/64" (BD SafetyGlide Insulin Syringe) insulin glargine 100 unit/mL (3 20 unit subcut HS 11/15/23 01/06/24 History mL) subcutaneous pen (Basaglar KwikPen U-100 Insulin) insulin regular human 100 unit/mL See Rx Instructions .Route 12/06/23 01/06/24 Rx (3 mL) subcutaneous pen (Novolin R .COMPLEX #9 mL FlexPen) pen needle, diabetic 31 gauge x #100 ea 12/06/23 01/06/24 Rx 3/16" (BD Ultra-Fine Mini Pen Needle) atorvastatin 80 mg tablet 80 mg PO QAM #90 tabs 12/10/23 01/06/24 Rx amiodarone 200 mg tablet 200 mg PO DAILY 12/12/23 01/06/24 History multivitamin 1 tab PO DAILY #90 tabs 12/21/23 01/06/24 Rx quetiapine 25 mg tablet 25 mg PO HS #30 tabs 12/21/23 01/06/24 Rx amoxicillin 500 mg capsule 2,000 mg PO UD 01/01/24 01/06/24 History apixaban 2.5 mg tablet (Eliquis) 2.5 mg PO Q12 01/01/24 01/06/24 History clopidogrel 75 mg tablet 75 mg PO DAILY 01/01/24 01/06/24 History docusate sodium 100 mg tablet 200 mg PO HS 01/01/24 01/06/24 History insulin regular human 100 unit/mL 2 unit subcut DAILYBB 01/01/24 01/06/24 History injection solution (Novolin R Regular U-100 Insulin) insulin regular human 100 unit/mL 4 unit subcut DAILYBL 01/01/24 01/06/24 History injection solution (Novolin R Regular U-100 Insulin) insulin regular human 100 unit/mL 6 unit subcut DAILYBD 01/01/24 01/06/24 History injection solution (Novolin R Regular U-100 Insulin) megestrol 40 mg tablet 40 mg PO DAILY 01/01/24 01/06/24 History fluticasone propionate 50 1 spray intranasal BID 01/06/24 01/06/24 History mcg/actuation nasal spray,suspension levothyroxine 50 mcg tablet 50 mcg PO DAILYBB 01/06/24 01/06/24 History metoprolol succinate 50 mg 75 mg PO HS 01/06/24 01/06/24 History tablet,extended release 24 hr midodrine 2.5 mg tablet 2.5 mg PO TID 01/06/24 01/06/24 History pantoprazole 40 mg tablet,delayed 40 mg PO DAILYBB 01/06/24 01/06/24 History release sevelamer carbonate 800 mg tablet 800 mg PO WM 01/06/24 01/06/24 History tramadol 50 mg tablet 50 mg PO .Q 12 HOURS PRN pain 01/06/24 01/06/24 History Patient History Medical History NSTEMI (non-ST elevated myocardial infarction) Aug 2023 > cath > [place] > no stents Atrial fibrillation pt unaware Dialysis patient [place] on [facility] > M,W,F Pneumonia Sep 2023 > resolved per pt COVID-12 Oct 2023 > resolved Uremia Chronic kidney disease BPH (benign prostatic hyperplasia) Arteriovenous fistula Left AVF creation 11/2022- now has occlusion- reason for upcoming procedure History of kidney stones Glaucoma HX OF- S/P TREATMENT- NO CURRENT ISSUES 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 CORODVA CKD V Controlled type 2 diabetes mellitus with kidney complication, with long-term current use of insulin Hgb A1C 09/2022 was 7.7 Coronary arteriosclerosis S/p angioplasty 1990 (no stent or hx of CABG) Cyst of kidney, acquired Dyslipidemia Hypertension FOLLOWED BY DR. RAYO Hypothyroidism Obesity, Class II, BMI 35-39.9 Surgical History History of cardiac cath Aug 2023 > cath > [facility] > no stents History of vascular access device right chest at present History of total right knee replacement H/O eye surgery RT/LEFT EYE FOR GLAUCOMA History of cataract surgery LEFT/RT History of total left knee replacement (TKR) X 2 History of lithotripsy a couple times History of tonsillectomy History of angioplasty at the age of 51 History of surgery scrotal hernia repair History of exploratory laparotomy History of umbilical hernia repair History of colonoscopy History of ear surgery Tympanic membrane repair--per pt a couple times Family History Father Cancer of kidney Hypertension Cardiac disorder Family/Other Cancer of kidney Bone cancer Mother Bone cancer Cardiac disorder Hypertension Other No family history of adverse response to anesthesia No family history of bleeding disorder Social History Smoking Status: Never smoker Tobacco Type: Cigarettes Second Hand Exposure: No; Do You Dip or Chew Tobacco: No; Hx Alcohol Use: No Hx Substance Use: No Preferred Language: Armenian Communication Ability: Effective Visual Impairment: Limited Hearing Ability: Normal Doctor Of Nursing Practice Required: No Beliefs That Will Affect Care: None marital status: / Current Living Situation: Long Term current occupational status: employed 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 How many Children do You have: 1 How many Children do You have Comment: Stepdaughter, 2 grandchildren Other Information That Helps Us Care for You: No Feels Safe at Home: Yes Safety Concerns: Feels Safe At This Time Diet: regular caffeine: Yes during the past year weight has: remained stable Dental Care, Regularly: Yes Physical Activity Frequency: 5-6 Times per Week Seatbelt Use: always Sunscreen Use: No Assistive Devices: Glasses and Walker Review of Systems Review of Systems: All systems reviewed & are unremarkable except as noted in HPI & below Physical Exam Constitutional: well developed, + ill appearing, + morbidly obese and + in distress Eyes: + anicteric sclerae ENMT: BIPAP Neck: normal visual inspection, trachea midline and + thick neck Respiratory: normal respiratory effort and + tachypneic Auscultation: lungs clear to auscultation bilaterally, + rales and + wheezes Cardiovascular: Rate/Rhythm: regular rate Heart Sounds: normal S1, normal S2 and + murmur Extremities: + edema and + AV fistula (LUE) Musculoskeletal: Extremities: no cyanosis and no clubbing Skin: normal turgor; no lesions Neurologic: Motor/Sensory: no tremor and no asterixis Psychiatric: Orientation: alert and oriented x 3 Results & Data Vital Signs (Past 12 Hours) Vital Signs Temp Pulse Pulse Resp BP BP Pulse Ox 01/07/24 09:15 98 H 01/07/24 09:10 37.0 C 98 H 204/101 H 01/07/24 08:57 36.5 C 82 24 177/93 H 96 01/07/24 08:01 36.6 C 72 18 136/73 96 01/07/24 04:00 37.3 C 63 20 116/69 99 01/07/24 00:16 68 01/07/24 00:14 01/07/24 00:14 36.8 C 90 18 147/74 H 97 O2 Del Method O2 Flow Rate FiO2 01/07/24 09:15 01/07/24 09:10 01/07/24 08:57 BiPAP 01/07/24 08:01 Nasal Cannula 2.0 01/07/24 04:00 BiPAP 01/07/24 00:16 01/07/24 00:14 CPAP 35 01/07/24 00:14 Room Air Laboratory Results Laboratory Results - last 24 hr 01/06/24 01/06/24 01/06/24 19:54 19:55 21:50 WBC 9.55 RBC 3.94 L Hgb 11.7 L POC Hgb Hct 39.1 L POC Hct MCV 99.2 MCH 29.7 MCHC 29.9 L RDW Std Deviation 61.1 H RDW Coeff of Aysha 16.6 H Plt Count 281 MPV 11.0 Immature Gran % (Auto) 0.9 Neut % (Auto) 67.2 Lymph % (Auto) 22.9 [place]upe % (Auto) 6.1 Eos % (Auto) 2.3 Baso % (Auto) 0.6 Neut # (Auto) 6.41 Lymph # (Auto) 2.19 [place] # (Auto) 0.58 Eos # (Auto) 0.22 Baso # (Auto) 0.06 Immature Gran # (Auto) 0.09 PT 11.4 INR 1.0 POC pH POC pCO2 POC pO2 POC HCO3 POC Total CO2 POC Base Excess POC ABG O2 Sat VBG pH 7.16 L VBG pCO2 62 H VBG pO2 36 VBG HCO3 22 VBG O2 Saturation < 60.0 VBG Base Excess -7.5 POC Sodium Sodium 134 L POC Potassium Potassium 5.0 Chloride 101 Carbon Dioxide 20 L Anion Gap 13 H BUN 58 H Creatinine 5.70 H* Est Cr Clr Drug Dosing 11.2 Est GFR ( Amer) 9.9 Est GFR (Non-Af Amer) 8.5 BUN/Creatinine Ratio 10.2 Glucose 483 H* POC Glucose Calcium 10.6 H Magnesium 2.1 Total Bilirubin 0.4 Direct Bilirubin AST 15 ALT 5 L Alkaline Phosphatase 117 H Troponin I High Sens 70.5 H* 134.9 H* D B-Natriuretic Peptide 1117 H Total Protein 7.8 Albumin 4.3 Globulin 3.5 Albumin/Globulin Ratio 1.2 Nasal Screen MRSA (PCR) Adenovirus (PCR) Not Detected B. pertussis DNA (PCR) Not Detected B.parapertussis DNA PCR Not Detected C. pneumoniae DNA (PCR) Not Detected Coronavirus OC43 (PCR) Not Detected Coronavirus HKU1 (PCR) Not Detected Coronavirus 229E (PCR) Not Detected SARS-CoV-2 (PCR) Not Detected Coronavirus NL63 (PCR) Not Detected Human Metapneumovir PCR Not Detected Influenza Type A (PCR) Not Detected Influenza Type B (PCR) Not Detected M. pneumoniae (PCR) Not Detected Parainfluenza 1 (PCR) Not Detected Parainfluenza 2 (PCR) Not Detected Parainfluenza 3 (PCR) Not Detected Parainfluenza 4 (PCR) Not Detected RSV (PCR) Not Detected Entero/Rhino (PCR) Not Detected 01/06/24 01/06/24 01/07/24 22:16 23:19 00:01 WBC RBC Hgb POC Hgb Hct POC Hct MCV MCH MCHC RDW Std Deviation RDW Coeff of Aysha Plt Count MPV Immature Gran % (Auto) Neut % (Auto) Lymph % (Auto) [place] % (Auto) Eos % (Auto) Baso % (Auto) Neut # (Auto) Lymph # (Auto) [place] # (Auto) Eos # (Auto) Baso # (Auto) Immature Gran # (Auto) PT INR POC pH POC pCO2 POC pO2 POC HCO3 POC Total CO2 POC Base Excess POC ABG O2 Sat VBG pH VBG pCO2 VBG pO2 VBG HCO3 VBG O2 Saturation VBG Base Excess POC Sodium Sodium POC Potassium Potassium Chloride Carbon Dioxide Anion Gap BUN Creatinine Est Cr Clr Drug Dosing Est GFR ( Amer) Est GFR (Non-Af Amer) BUN/Creatinine Ratio Glucose POC Glucose 406 H* 420 H* 379 H* Calcium Magnesium Total Bilirubin Direct Bilirubin AST ALT Alkaline Phosphatase Troponin I High Sens B-Natriuretic Peptide Total Protein Albumin Globulin Albumin/Globulin Ratio Nasal Screen MRSA (PCR) Adenovirus (PCR) B. pertussis DNA (PCR) B.parapertussis DNA PCR C. pneumoniae DNA (PCR) Coronavirus OC43 (PCR) Coronavirus HKU1 (PCR) Coronavirus 229E (PCR) SARS-CoV-2 (PCR) Coronavirus NL63 (PCR) Human Metapneumovir PCR Influenza Type A (PCR) Influenza Type B (PCR) M. pneumoniae (PCR) Parainfluenza 1 (PCR) Parainfluenza 2 (PCR) Parainfluenza 3 (PCR) Parainfluenza 4 (PCR) RSV (PCR) Entero/Rhino (PCR) 01/07/24 01/07/24 01/07/24 02:00 04:08 06:25 WBC RBC Hgb POC Hgb Hct POC Hct MCV MCH MCHC RDW Std Deviation RDW Coeff of Aysha Plt Count MPV Immature Gran % (Auto) Neut % (Auto) Lymph % (Auto) [place] % (Auto) Eos % (Auto) Baso % (Auto) Neut # (Auto) Lymph # (Auto) [place] # (Auto) Eos # (Auto) Baso # (Auto) Immature Gran # (Auto) PT INR POC pH POC pCO2 POC pO2 POC HCO3 POC Total CO2 POC Base Excess POC ABG O2 Sat VBG pH VBG pCO2 VBG pO2 VBG HCO3 VBG O2 Saturation VBG Base Excess POC Sodium Sodium POC Potassium Potassium Chloride Carbon Dioxide Anion Gap BUN Creatinine Est Cr Clr Drug Dosing Est GFR ( Amer) Est GFR (Non-Af Amer) BUN/Creatinine Ratio Glucose POC Glucose 306 H* 245 H Calcium Magnesium Total Bilirubin Direct Bilirubin AST ALT Alkaline Phosphatase Troponin I High Sens B-Natriuretic Peptide Total Protein Albumin Globulin Albumin/Globulin Ratio Nasal Screen MRSA (PCR) Negative Adenovirus (PCR) B. pertussis DNA (PCR) B.parapertussis DNA PCR C. pneumoniae DNA (PCR) Coronavirus OC43 (PCR) Coronavirus HKU1 (PCR) Coronavirus 229E (PCR) SARS-CoV-2 (PCR) Coronavirus NL63 (PCR) Human Metapneumovir PCR Influenza Type A (PCR) Influenza Type B (PCR) M. pneumoniae (PCR) Parainfluenza 1 (PCR) Parainfluenza 2 (PCR) Parainfluenza 3 (PCR) Parainfluenza 4 (PCR) RSV (PCR) Entero/Rhino (PCR) 01/07/24 01/07/24 01/07/24 07:02 08:04 08:57 WBC 7.03 RBC 3.54 L Hgb 10.5 L POC Hgb 12.2 L Hct 33.6 L POC Hct 36 L MCV 94.9 MCH 29.7 MCHC 31.3 L RDW Std Deviation 58.4 H RDW Coeff of Aysha 16.9 H Plt Count 229 MPV 10.9 Immature Gran % (Auto) Neut % (Auto) Lymph % (Auto) [place] % (Auto) Eos % (Auto) Baso % (Auto) Neut # (Auto) Lymph # (Auto) [place] # (Auto) Eos # (Auto) Baso # (Auto) Immature Gran # (Auto) PT INR POC pH 7.34 L POC pCO2 37 POC pO2 67 L POC HCO3 20 POC Total CO2 21 L POC Base Excess -6.0 POC ABG O2 Sat 92.0 VBG pH VBG pCO2 VBG pO2 VBG HCO3 VBG O2 Saturation VBG Base Excess POC Sodium 137 Sodium 138 POC Potassium 5.1 H Potassium 5.4 H Chloride 104 Carbon Dioxide 23 Anion Gap 11 BUN 62 H Creatinine 5.67 H* Est Cr Clr Drug Dosing 10.7 Est GFR ( Amer) 9.9 Est GFR (Non-Af Amer) 8.6 BUN/Creatinine Ratio 10.9 Glucose 205 H POC Glucose 216 H Calcium 10.8 H Magnesium Total Bilirubin 0.6 Direct Bilirubin 0.1 AST 14 ALT 5 L Alkaline Phosphatase 91 Troponin I High Sens 354.7 H* D B-Natriuretic Peptide Total Protein 7.0 Albumin 4.0 Globulin Albumin/Globulin Ratio Nasal Screen MRSA (PCR) Adenovirus (PCR) B. pertussis DNA (PCR) B.parapertussis DNA PCR C. pneumoniae DNA (PCR) Coronavirus OC43 (PCR) Coronavirus HKU1 (PCR) Coronavirus 229E (PCR) SARS-CoV-2 (PCR) Coronavirus NL63 (PCR) Human Metapneumovir PCR Influenza Type A (PCR) Influenza Type B (PCR) M. pneumoniae (PCR) Parainfluenza 1 (PCR) Parainfluenza 2 (PCR) Parainfluenza 3 (PCR) Parainfluenza 4 (PCR) RSV (PCR) Entero/Rhino (PCR) Diagnostic Findings XR chest 1V portable FINDINGS: No pneumothorax. The heart remains enlarged. Small bilateral pleural effusions persist. A right jugular catheter terminates in the SVC. Moderate pulmonary edema is again noted. Left lung airspace opacities have slightly progressed. Bibasilar densities persist. IMPRESSION: 1. Left lung airspace opacities have progressed. This could represent pneumonia or worsening pulmonary edema. 2. Cardiomegaly, moderate pulmonary edema, and small bilateral pleural effusions/densities persist. PG Care Time/CCT Total # of Minutes Spent Total Time Spent with Patient: Total time spent is greater than 50% in coordination of care (as documented) at patient's floor/unit and/or counseling patient: Coding Level of Care Code 76036 IN/OBS CONSULT LVL 4,60M Diagnoses ESRD (end stage renal disease) on dialysis N18.6; Z99.2 Acute hypoxemic respiratory failure J96.01 Acute pulmonary edema J81.0 Accelerated hypertension I10 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
--- NOTE | 2024-01-07 12:25 | Hospitalist Progress Note ---
Date of Service January 07, 2024 Assessment & Plan (1) Acute hypoxemic respiratory failure: Plan: Due to fluid overload causing exacerbation of diastolic CHF. He is doing better since he received hemodialysis today, January 06. Supplemental oxygen to maintain saturation in the 90 to 92% range. Wean off as tolerated (2) Acute pulmonary edema: Plan: Due to fluid overload and elevated blood pressure. Acute on chronic diastolic CHF. Blood pressure control. Serial chest x-ray (3) Hyperglycemia: Plan: Type 2 diabetes. Basal insulin therapy. Sliding scale coverage as needed (4) ESRD (end stage renal disease) on dialysis: Plan: Nephrology consultation appreciated. Emergent hemodialysis completed today, January 06. He is normally on a Sunday schedule. (5) Hypertension: Plan: Blood pressure markedly elevated on admission. Parenteral hydralazine administered. Blood pressure is much better after dialysis. Will follow. Midodrine is on hold. (6) Dyslipidemia: Plan: Stable. Continue Atorvastatin (7) Atrial fibrillation: Plan: Chronic. Rate controlled. Continue metoprolol, amiodarone, Eliquis Plan To be determined. Will obtain OT and PT evaluations tomorrow, January 07 Admission and Anticipated Discharge Date Admission Date: January 06, 2024 Subjective Code purple called earlier this morning, January 06, due to respiratory failure associated with the acute pulmonary edema from fluid overload and elevated blood pressure. He has since had hemodialysis and is doing much better. Appreciate nephrology consultation and recommendations. Will repeat chest x-ray again tomorrow, January 07. Will order OT and PT evaluations tomorrow, January 07 Review of Systems 2 Review of Systems: Constitutional-no fever or chills ENT-no blurred vision, no double vision, no epistaxis, no sore throat Respiratory-no cough, no wheezing. Short of breath at rest Cardiac-no palpitations, no chest pain, no syncope GI-no nausea, vomiting, diarrhea, melena, hematochezia -no urinary retention, no urinary incontinence, no dysuria, no hematuria Musculoskeletal-no joint pain, no muscle tenderness. 1+ pitting edema bilateral lower extremities below the knees Skin-no bruising, no rashes, no pruritus Neuro-no isolated weakness, no paresthesia Psych-no depression, no anxiety Physical Exam 2 Physical Exam: General-alert and oriented x3, no fever, no chills HEENT-head atraumatic and normocephalic, TMs intact bilaterally, pupils equal and reactive to light, extraocular muscles intact Neck-no lymphadenopathy or thyromegaly, trachea midline Chest-tachypnea and shortness of breath at rest. Bilateral inspiratory rales throughout both lung fontana. End expiratory wheezes. Cardiac-regular rate and rhythm, normal S1 and S2 Abdomen-normal bowel sounds, nontender, no hepatosplenomegaly Extremities-no cyanosis, clubbing. 1+ pitting edema bilateral lower extremities below the knees Neuro-cranial nerves II through XII intact, motor and sensory function within normal limits, strength symmetrical and consistent with a, no focal deficits Psych-normal affect, normal mood Results & Data Results & Data Vital Signs (Past 12 Hours) Vital Signs Temp Pulse Pulse Resp BP BP Pulse Ox 01/07/24 11:30 91 H 107/65 01/07/24 11:15 87 108/59 L 01/07/24 11:00 91 H 101/86 01/07/24 10:45 86 110/62 01/07/24 10:30 92 H 107/65 01/07/24 10:15 86 116/65 01/07/24 10:00 78 105/65 01/07/24 09:45 92 H 126/69 01/07/24 09:30 92 H 145/79 H 01/07/24 09:15 99 H 41 H 95 01/07/24 09:15 96 H 173/89 H 01/07/24 09:15 98 H 01/07/24 09:10 37.0 C 98 H 204/101 H 01/07/24 08:57 36.5 C 82 24 177/93 H 96 01/07/24 08:01 36.6 C 72 18 136/73 96 01/07/24 04:00 37.3 C 63 20 116/69 99 O2 Del Method O2 Flow Rate FiO2 01/07/24 11:30 01/07/24 11:15 01/07/24 11:00 01/07/24 10:45 01/07/24 10:30 01/07/24 10:15 01/07/24 10:00 01/07/24 09:45 01/07/24 09:30 01/07/24 09:15 45 01/07/24 09:15 01/07/24 09:15 01/07/24 09:10 01/07/24 08:57 BiPAP 01/07/24 08:01 Nasal Cannula 2.0 01/07/24 04:00 BiPAP Laboratory Results 01/07/24 08:04 01/07/24 08:04 PG Care Time/CCT Total # of Minutes Spent Total Time Spent with Patient: Total time spent is greater than 50% in coordination of care (as documented) at patient's floor/unit and/or counseling patient: Coding Level of Care Code 19969 SUB INP/OBS CARE 3/50MIN Diagnoses Acute hypoxemic respiratory failure J96.01 Acute pulmonary edema J81.0 Hyperglycemia R73.9 ESRD (end stage renal disease) on dialysis N18.6; Z99.2 Hypertension secondary to other renal disorders I15.1; 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
--- NOTE | 2024-01-07 16:44 | Electrocardiogram Report ---
Test Reason : Blood Pressure : / mmHG Vent. Rate : 077 BPM Atrial Rate : 077 BPM P-R Int : 238 ms QRS Dur : 128 ms QT Int : 434 ms P-R-T Axes : 078 -37 064 degrees QTc Int : 491 ms Sinus rhythm with PACs with 1st degree A-V block Left axis deviation Left ventricular hypertrophy with QRS widening and repolarization abnormality Abnormal ECG Confirmed by David Zhou ([id number]) on 01/07/2024 4:44:34 PM Referred By: REFERRED SELF Confirmed By:Haim Zhou
[2024-01-07] MEDS: DOCUSATE SODIUM 100 MG CAP PO SCH (20:41)
[2024-01-07] MEDS: METOPROLOL SUCC 25MG EXT REL TAB PO SCH (20:42)
[2024-01-07] MEDS: QUEtiapine FUMARATE 25 MG TABLET PO SCH (20:42)
[2024-01-07] MEDS: traMADol HCL 50 MG TABLET PO PRN (20:44)
--- NOTE | 2024-01-08 07:57 | XRay Report ---
XR chest 1V portable HISTORY: Shortness of breath. pulmonary edema COMPARISON: Chest 01/07/2024. FINDINGS: No pneumothorax. Low lung volumes. Small bilateral pleural effusions and bibasilar densitie s have improved. The heart remains enlarged. Right jugular catheter terminates in the SVC. Improvemen t in the pulmonary edema and left lung airspace opacities. IMPRESSION: 1. Interval improvement in the pulmonary edema and left lung airspace opacities. 2. Small bilateral pleural effusions have also slightly improved. ACT 112: Negative or not required by law. Electronically signed by: Socrates Keith M.D. 01/08/2024 7:56 AM
--- NOTE | 2024-01-08 09:33 | Nephrology Progress Note ---
Date of Service January 08, 2024 Assessment & Plan (1) ESRD (end stage renal disease) on dialysis: Plan: IHD MWF. Completed treatment yesterday with adequate clearance and UF. No additional HD planned for today. Will schedule HD tomorrow. Midodrine will be coordinated pre-HD tomorrow per home Rx for intra-dialytic hypotension. Medications appropriate for kidney function. Renal diet. Fluid restriction 1.2 L/d. Sevelamer QAC. Continued education of dietary sodium and fluid restriction. (2) Acute hypoxemic respiratory failure: Plan: Due to pulmonary edema associated with ESRD. Improved with UF/HD. Low sodium diet and daily fluid restriction. Furosemide 80 mg provided this AM to encourage urine output. CXR and exam show improvement. (3) Accelerated hypertension: Plan: Midodrine held. BP now acceptable. (4) Anemia: Plan: Chronic, stable. Maintained on Micera as outpatient. Admission and Anticipated Discharge Date Admission Date: January 06, 2024 Subjective No acute events overnight. Davin was sitting comfortably in his bedside chair this AM. He feels well. He denies dyspnea. He does not endorse any chest pains or palpitations. He tolerated HD well yesterday. Net UF ~2.7 L. No complications with treatment. Davin reports that his urine output has been less lately. Review of Systems Review of Systems: All systems reviewed & are unremarkable except as noted in HPI & below Physical Exam Constitutional: well developed and + morbidly obese; not in distress Eyes: + anicteric sclerae Neck: normal visual inspection and trachea midline IJ TDC Respiratory: normal respiratory effort; not tachypneic Auscultation: lungs clear to auscultation bilaterally Cardiovascular: Rate/Rhythm: regular rate Heart Sounds: normal S1, normal S2 and + murmur Extremities: + edema (improved) and + AV fistula (LUE) Musculoskeletal: Extremities: no cyanosis and no clubbing Skin: normal turgor; no lesions Neurologic: Motor/Sensory: no tremor and no asterixis Psychiatric: Orientation: alert and oriented x 3 Results & Data Vital Signs (Past 12 Hours) Vital Signs Temp Pulse Pulse Resp BP Pulse Ox O2 Del Method 01/08/24 07:40 36.4 C L 65 17 101/56 L 98 Nasal Cannula 01/08/24 02:50 36.7 C 76 22 109/69 96 Nasal Cannula 01/07/24 23:26 36.8 C 71 22 106/62 100 Nasal Cannula 01/07/24 22:00 85 O2 Flow Rate 01/08/24 07:40 3 01/08/24 02:50 3 01/07/24 23:26 3 01/07/24 22:00 Laboratory Results Laboratory Results - last 24 hr 01/07/24 01/07/24 01/07/24 10:58 13:52 16:04 POC Glucose 126 H 145 H Troponin I High Sens 344.3 H* 01/07/24 01/07/24 01/08/24 16:46 20:50 07:24 POC Glucose 243 H 151 H Troponin I High Sens 338.2 H* Diagnostic Findings XR chest 1V portable COMPARISON: Chest 01/07/2024. FINDINGS: No pneumothorax. Low lung volumes. Small bilateral pleural effusions and bibasilar densities have improved. The heart remains enlarged. Right jugular catheter terminates in the SVC. Improvement in the pulmonary edema and left lung airspace opacities. IMPRESSION: 1. Interval improvement in the pulmonary edema and left lung airspace opacities. 2. Small bilateral pleural effusions have also slightly improved. PG Care Time/CCT Total # of Minutes Spent Total Time Spent with Patient: Total time spent is greater than 50% in coordination of care (as documented) at patient's floor/unit and/or counseling patient: Coding Level of Care Code 57234 SUB INP/OBS CARE 3/50MIN Diagnoses ESRD (end stage renal disease) on dialysis N18.6; Z99.2 Acute hypoxemic respiratory failure J96.01 Accelerated hypertension I10 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
[2024-01-08] MEDS: FUROSEMIDE 80 MG TAB PO ONE (10:38)
[2024-01-08 10:44] LABS: Creatinine Clr Calc Pharmacy 13.1 ml/min; Est GFR (African American) 13.3 ml/min; Est GFR (Non-African American) 11.5 ml/min
--- NOTE | 2024-01-08 16:35 | Hospitalist Progress Note ---
Date of Service January 08, 2024 Assessment & Plan (1) Acute hypoxemic respiratory failure: Plan: Due to fluid overload causing exacerbation of diastolic CHF. He is doing better since he received hemodialysis on January 06. Supplemental oxygen has been weaned off. He is now on room air. (2) Acute pulmonary edema: Plan: Due to fluid overload and elevated blood pressure. Acute on chronic diastolic CHF. Blood pressure control. Serial chest x-ray. Much improved (3) Hyperglycemia: Plan: Type 2 diabetes. Basal insulin therapy. Sliding scale coverage as needed (4) ESRD (end stage renal disease) on dialysis: Plan: Nephrology consultation appreciated. Emergent hemodialysis completed on January 06. He is normally on a Sunday schedule. Anticipate another hemodialysis session tomorrow, January 08 prior to discharge (5) Hypertension: Plan: Blood pressure markedly elevated on admission. Parenteral hydralazine was administered. Blood pressure is much better after dialysis. Will follow. Midodrine is being given with HD to prevent hypotension (6) Dyslipidemia: Plan: Stable. Continue Atorvastatin (7) Atrial fibrillation: Plan: Chronic. Rate controlled. Continue metoprolol, amiodarone, Eliquis Plan Hopeful return to [facility] tomorrow, January 08 Admission and Anticipated Discharge Date Admission Date: January 06, 2024 Subjective Alert and oriented. Comfortable. He looks much better than yesterday. Chest x-ray today, January 07, looks much better. Hopefully he can return to [facility] living tomorrow, January 08 Review of Systems 2 Review of Systems: Constitutional-no fever or chills ENT-no blurred vision, no double vision, no epistaxis, no sore throat Respiratory-no cough, no wheezing. Short of breath at rest has resolved Cardiac-no palpitations, no chest pain, no syncope GI-no nausea, vomiting, diarrhea, melena, hematochezia -no urinary retention, no urinary incontinence, no dysuria, no hematuria Musculoskeletal-no joint pain, no muscle tenderness. 1+ pitting edema bilateral lower extremities below the knees has nearly resolved Skin-no bruising, no rashes, no pruritus Neuro-no isolated weakness, no paresthesia Psych-no depression, no anxiety Physical Exam 2 Physical Exam: General-alert and oriented x3, no fever, no chills HEENT-head atraumatic and normocephalic, TMs intact bilaterally, pupils equal and reactive to light, extraocular muscles intact Neck-no lymphadenopathy or thyromegaly, trachea midline Chest-very faint bilateral inspiratory rales. No wheezing. No dullness to percussion. Cardiac-regular rate and rhythm, normal S1 and S2 Abdomen-normal bowel sounds, nontender, no hepatosplenomegaly Extremities-no cyanosis, clubbing. 1+ pitting edema bilateral lower extremities below the knees has nearly resolved Neuro-cranial nerves II through XII intact, motor and sensory function within normal limits, strength symmetrical and consistent with age, no focal deficits Psych-normal affect, normal mood Results & Data Results & Data Vital Signs (Past 12 Hours) Vital Signs Temp Pulse Pulse Resp BP Pulse Ox O2 Del Method 01/08/24 16:00 36.5 C 70 16 131/71 95 Room Air 01/08/24 15:31 Nasal Cannula 01/08/24 11:38 36.4 C L 64 18 124/70 96 Nasal Cannula 01/08/24 08:00 68 01/08/24 08:00 Nasal Cannula 01/08/24 07:40 36.4 C L 65 17 101/56 L 98 Nasal Cannula O2 Flow Rate 01/08/24 16:00 01/08/24 15:31 2 01/08/24 11:38 3 01/08/24 08:00 01/08/24 08:00 2 01/08/24 07:40 3 Laboratory Results 01/07/24 08:04 01/08/24 10:04 PG Care Time/CCT Total # of Minutes Spent Total Time Spent with Patient: Total time spent is greater than 50% in coordination of care (as documented) at patient's floor/unit and/or counseling patient: Coding Level of Care Code 28814 SUB INP/OBS CARE 3/50MIN Diagnoses Acute hypoxemic respiratory failure J96.01 Acute pulmonary edema J81.0 Hyperglycemia R73.9 ESRD (end stage renal disease) on dialysis N18.6; Z99.2 Hypertension secondary to other renal disorders I15.1; 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
[2024-01-09 06:36] LABS: Hematocrit (blood only) 36.5 % (42.0-52.0); Hemoglobin 11.5 g/dl (14.0-18.0)
[2024-01-09 07:33] LABS: BUN Creatinine Ratio 10.3 (10-20); Calcium 11.5 mg/dl (8.6-10.3); Creatinine Clr Calc Pharmacy 11.9 ml/min; Est GFR (African American) 10.9 ml/min; Est GFR (Non-African American) 9.4 ml/min; Potassium 5.2 mmol/L (3.5-5.1)
--- NOTE | 2024-01-09 10:41 | Nephrology Progress Note ---
Date of Service January 09, 2024 Assessment & Plan (1) ESRD (end stage renal disease) on dialysis: Plan: IHD MWF. Orders for HD today were entered into the EHR and reviewed with the wireless development manager. Midodrine held but can be given PRN for intradialytic hypotension. Medications appropriate for kidney function. Renal diet. Fluid restriction 1.2 L/d. Sevelamer QAC. Continued education of dietary sodium and fluid restriction. (2) Acute hypoxemic respiratory failure: Plan: Due to pulmonary edema associated with ESRD. Improved with UF/HD. Low sodium diet and daily fluid restriction reviewed. Furosemide 80 mg to encourage urine output. (3) Accelerated hypertension: Plan: Midodrine held. BP now acceptable. (4) Anemia: Plan: Chronic, stable. Maintained on Micera as outpatient. Admission and Anticipated Discharge Date Admission Date: January 06, 2024 Subjective No acute events overnight. No complaints this AM. BP acceptable. Breathing comfortably. Potential discharge to [facility] post HD today. Reports increased UOP with furosemide. I discussed the plan of care with Dr. Marc this AM. Review of Systems Review of Systems: All systems reviewed & are unremarkable except as noted in HPI & below Physical Exam Constitutional: well developed; no acute distress Eyes: + anicteric sclerae Neck: normal visual inspection, trachea midline and + thick neck Respiratory: normal respiratory effort; not tachypneic Auscultation: lungs clear to auscultation bilaterally and + wheezes (soft) Cardiovascular: Rate/Rhythm: regular rate Heart Sounds: normal S1, normal S2 and + murmur Extremities: + edema and + AV fistula (LUE) Musculoskeletal: Extremities: no cyanosis and no clubbing Skin: normal turgor; no lesions Neurologic: Motor/Sensory: no tremor and no asterixis Psychiatric: Orientation: alert and oriented x 3 Results & Data Vital Signs (Past 12 Hours) Vital Signs Temp Pulse Pulse Resp BP Pulse Ox O2 Del Method 01/09/24 08:16 62 01/09/24 07:41 36.6 C 63 18 131/68 94 Room Air 01/09/24 02:04 36.5 C 80 18 143/78 H 93 Room Air Laboratory Results Laboratory Results - last 24 hr 01/08/24 01/08/24 01/08/24 10:04 11:30 16:07 Hgb Hct Sodium 137 Potassium 5.0 Chloride 103 Carbon Dioxide 25 Anion Gap 9 BUN 40 H D Creatinine 4.44 H D Est Cr Clr Drug Dosing 13.1 Est GFR ( Amer) 13.3 Est GFR (Non-Af Amer) 11.5 BUN/Creatinine Ratio 9.0 L Glucose 184 H POC Glucose 157 H 139 H Calcium 11.0 H 01/08/24 01/09/24 01/09/24 20:04 06:13 07:07 Hgb 11.5 L Hct 36.5 L Sodium 137 Potassium 5.2 H Chloride 105 Carbon Dioxide 22 Anion Gap 10 BUN 54 H Creatinine 5.23 H* D Est Cr Clr Drug Dosing 11.9 Est GFR ( Amer) 10.9 Est GFR (Non-Af Amer) 9.4 BUN/Creatinine Ratio 10.3 Glucose 168 H POC Glucose 167 H 153 H Calcium 11.5 H PG Care Time/CCT Total # of Minutes Spent Total Time Spent with Patient: Total time spent is greater than 50% in coordination of care (as documented) at patient's floor/unit and/or counseling patient: Coding Level of Care Code 56440 SUB INP/OBS CARE 3/50MIN Diagnoses ESRD (end stage renal disease) on dialysis N18.6; Z99.2 Acute hypoxemic respiratory failure J96.01 Accelerated hypertension I10 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
[2024-01-09] MEDS: FUROSEMIDE 80 MG TAB PO SCH (10:57)
--- NOTE | 2024-01-09 11:25 | Discharge Summary ---
Date of Service January 09, 2024 Admission HPI Per Admitting Provider Davin Gaviria is a pleasant 83yo male with history of ESRD on HD q M/W/F, DM, HTN, HLP, ICM presenting with acute onset of respiratory distress with acute hypoxic respiratory failure. Patient has been in his usual state of health. No new symptoms or complaints over the last several days. Patient resides at [facility]. He ate dinner - grilled cheese with tomato and tomato soup then got up to walk to his room. He was able to walk to his room - appx 10 minute walk - no symptoms. He then sat down on his bed and became acutely short of breath. He was unable to catch his breath so he called for help. Staff members called EMS. Per report, patient was quite hypoxic with saturations initially in the 50's. He was given a DuoNeb and placed on CPAP and transported to [facility]. Upon arrival to the ER patient tachypneic and hypertensive at 190/96. He was transitioned to BiPAP. Symptoms have improved. He reports having some substernal chest discomfort and abdominal pain after dinner which has since resolved. Patient denies chest pain, palpitations, weight gain, orthopnea, nausea, vomiting, abdominal pain. NO additional complaints at this time. No use of O2 or CPAP at home Principal Diagnosis Fluid overload, acute pulmonary edema, acute diastolic CHF Discharge Exam General-alert and oriented x3, no fever, no chills HEENT-head atraumatic and normocephalic, pupils equal and reactive to light, extraocular muscles intact Neck-no lymphadenopathy or thyromegaly, trachea midline Chest-inspiratory rales have resolved. No wheezing. No dullness to percussion. Cardiac-regular rate and rhythm, normal S1 and S2 Abdomen-normal bowel sounds, nontender, no hepatosplenomegaly Extremities-no cyanosis, clubbing. 1+ pitting edema bilateral lower extremities below the knees has resolved Neuro-cranial nerves II through XII intact, motor and sensory function within normal limits, strength symmetrical and consistent with age, no focal deficits Psych-normal affect, normal mood Discharge Data Allergies Allergy/AdvReac Type Severity Reaction Status Date / Time latex Allergy Mild SKIN Verified 01/01/24 11:04 IRRITATION Consultations 01/06/24 22:04 Consult Nephrology Routine 01/06/24 22:09 ED Decision to Admit Stat Hospital Course (1) Acute hypoxemic respiratory failure: Due to fluid overload causing exacerbation of diastolic CHF. Resolved. He is now on room air. (2) Acute pulmonary edema: Due to fluid overload and elevated blood pressure. Acute diastolic CHF. Blood pressure control. Serial chest x-ray. Resolved (3) Hyperglycemia: Type 2 diabetes. Basal insulin therapy. Sliding scale coverage as needed (4) ESRD (end stage renal disease) on dialysis: Nephrology consultation appreciated. Emergent hemodialysis completed on January 06. He is normally on a Sunday schedule. He will be dis charged after his hemodialysis today, January 08 . Case discussed with nephrology. He will be placed on Lasix 80 mg daily going forward (5) Hypertension: Blood pressure markedly elevated on admission. Parenteral hydralazine was administered. Blood pressure is much better after dialysis. Will follow. Midodrine is being given with HD to prevent hypotension (6) Dyslipidemia: Stable. Continue Atorvastatin (7) Atrial fibrillation: Chronic. Rate controlled. Continue metoprolol, amiodarone, Eliquis Plan Discharge back to [facility] after dialysis todayJanuary 08 Total Time Total Time Spent Total Time Spent (In Minutes): 50-minute Discharge Plan Discharge Items Patient Disposition: Transfer [facility] Reason For Visit: ACUTE HYPOXIC RESPIRATORY FAILURE Discharge Diagnosis: Fluid overload, uncontrolled hypertension, acute pulmonary edema, acute diastolic CHF, acute hypoxic respiratory failure Activity: Resume your previous activity Non-emergency contact: Primary Care Provider and Municipal Firefighter Call non-emergency contact if: your symptoms worsen Follow-up/Referrals: Orly Dickson MD [Primary Care Provider] - Diet: Carb Consistent or DM2, Dialysis Renal and Heart Healthy Addtl Attending Provider Instructions: Take Lasix 80 mg daily after lunch. All other medications remain the same Pending Studies at Discharge: No Stand-Alone Forms: My [facility] Skilled Items Patient informed of condition?: Yes DNR: Yes Discharge Level of Care: Skilled Communicable Disease: No Discharge Prognosis: Stable Lines: None Urinary Catheter: No Medications and DC Order Prescriptions: New furosemide 80 mg Tablet 80 mg PO QAM Qty: 30 0RF Continued (DME) BD SafetyGlide Insulin Syringe 0.3 mL 31 gauge x 15/64" syringe MISCELLANEOUS Qty: 700 3RF Rx Instructions: Use 7 times daily insulin glargine [Basaglar KwikPen U-100 Insulin] 100 unit/mL (3 mL) insulin pen 20 unit subcut HS (DME) pen needle, diabetic [BD Ultra-Fine Mini Pen Needle] 31 gauge x 3/16" needle See Rx Instructions .ROUTE .COMPLEX Qty: 100 11RF Dose Instruction: USE FOR INSULIN INJECTION NEEDED Rx Instructions: USE FOR INSULIN INJECTION NEEDED Novolin R FlexPen 100 unit/mL (3 mL) insulin pen See Rx Instructions .ROUTE .COMPLEX Qty: 9 11RF Dose Instruction: SLIDING SCALE: (ROTATE SITES) FOUR TIMES DAILY SUBQ 141-175=1UNIT; 176-210 =2UNITS; 211-245=3UNITS; 246-280=4UNITS; 246-280=4UNITS; 281-315=5UNITS; 316- 350=6UNITS Rx Instructions: SLIDING SCALE: (ROTATE SITES) FOUR TIMES DAILY SUBQ 141-175=1UNIT; 176- 210=2UNITS; 211-245=3UNITS; 246-280=4UNITS; 246-280=4UNITS; 281-315=5UNITS; 316- 350=6UNITS atorvastatin 80 mg tablet 80 mg PO QAM Qty: 90 3RF multivitamin Tablet 1 tab PO DAILY Qty: 90 3RF quetiapine 25 mg tablet 25 mg PO HS Qty: 30 5RF amiodarone 200 mg tablet 200 mg PO DAILY Dose Instruction: 1 TAB BY MOUTH EVERY DAY (DME) FreeStyle Ritchie 14 Day Sensor Kit MISCELLANEOUS (DME) FreeStyle Ritchie 14 Day [place] Misc MISCELLANEOUS amoxicillin 500 mg capsule 2,000 mg PO UD Rx Instructions: 1 hr prior to dental procedure. megestrol 40 mg tablet 40 mg PO DAILY Novolin R Regular U100 Insulin 100 unit/mL Solution 2 unit SUBCUT DAILYBB Novolin R Regular U100 Insulin 100 unit/mL Solution 6 unit SUBCUT DAILYBD Novolin R Regular U100 Insulin 100 unit/mL Solution 4 unit SUBCUT DAILYBL clopidogrel 75 mg tablet 75 mg PO DAILY docusate sodium 100 mg tablet 200 mg PO HS Eliquis 2.5 mg tablet 2.5 mg PO Q12 fluticasone propionate 50 mcg/actuation spray,suspension 1 spray intranasal BID tramadol 50 mg tablet 50 mg PO .Q 12 HOURS PRN (Reason: pain) levothyroxine 50 mcg tablet 50 mcg PO DAILYBB Rx Instructions: 1 TAB BY MOUTH EVERY MORNING TAKE ON AN EMPTY STOMACH WITH A FULL GLASS OF WATER WAIT 30 MINUTES TO EAT, DRINK OR TAKE MEDICATIONS pantoprazole 40 mg tablet,delayed release (DR/EC) 40 mg PO DAILYBB Rx Instructions: 1 TAB BY MOUTH EVERY MORNING *DO NOT CRUSH* sevelamer carbonate 800 mg tablet 800 mg PO WM Rx Instructions: 1 TAB BY MOUTH THREE TIMES DAILY WITH MEALS metoprolol succinate 50 mg tablet extended release 24 hr 75 mg PO HS Rx Instructions: 1.5 TABS BY MOUTH AT BEDTIME midodrine 2.5 mg tablet 2.5 mg PO TID Rx Instructions: 1 TAB BY MOUTH THREE TIMES DAILY (0800/1200/1700) Discharge Orders: Discharge Order- CHF (Routine); Ordered 01/09/24 Ordered By: Gregory Marc Admission Data Admit Date/Time: 01/06/24 22:04 Attending Provider: Gregory Marc Admit Provider: Cheryl Cruz Primary Care Provider: Orly Dickson V. Other Providers: Dany Cid; Miguel Reis Kevin C.; Nadja Duran; Cheryl Cruz Coding Level of Care Code 47070 INP/OBS DISCH >30 MIN Diagnoses Acute hypoxemic respiratory failure J96.01 Acute pulmonary edema J81.0 Hyperglycemia R73.9 ESRD (end stage renal disease) on dialysis N18.6; Z99.2 Hypertension secondary to other renal disorders I15.1; N28.89 Hypertension type: secondary to other renal disorders Dyslipidemia E78.5 Atrial fibrillation I48.91
--- NOTE | 2024-01-09 12:12 | Hospitalist Progress Note ---
Date of Service January 09, 2024 Assessment & Plan (1) Acute hypoxemic respiratory failure: Plan: Due to fluid overload causing exacerbation of diastolic CHF. Resolved. He is now on room air. (2) Acute pulmonary edema: Plan: Due to fluid overload and elevated blood pressure. Acute diastolic CHF. Blood pressure control. Serial chest x-ray. Resolved (3) Hyperglycemia: Plan: Type 2 diabetes. Basal insulin therapy. Sliding scale coverage as needed (4) ESRD (end stage renal disease) on dialysis: Plan: Nephrology consultation appreciated. Emergent hemodialysis completed on January 06. He is normally on a Sunday schedule. He will be discharged after his hemodialysis today, January 08 . Case discussed with nephrology. He will be placed on Lasix 80 mg daily going forward (5) Hypertension: Plan: Blood pressure markedly elevated on admission. Parenteral hydralazine was administered. Blood pressure is much better after dialysis. Will follow. Midodrine is being given with HD to prevent hypotension (6) Dyslipidemia: Plan: Stable. Continue Atorvastatin (7) Atrial fibrillation: Plan: Chronic. Rate controlled. Continue metoprolol, amiodarone, Eliquis Plan He will need to be discharged to SNF for ongoing physical therapy before he can return to his previous living arrangements. Case management aware. Admission and Anticipated Discharge Date Admission Date: January 06, 2024 Subjective Alert and oriented. However, he is needing considerable assistance and will need a higher level of care at discharge, probably SNF placement. Otherwise, he has significantly improved from admission. He will undergo hemodialysis again today, January 08 Review of Systems 2 Review of Systems: Constitutional-no fever or chills ENT-no blurred vision, no double vision, no epistaxis, no sore throat Respiratory-no cough, no wheezing. Short of breath at rest has resolved Cardiac-no palpitations, no chest pain, no syncope GI-no nausea, vomiting, diarrhea, melena, hematochezia -no urinary retention, no urinary incontinence, no dysuria, no hematuria Musculoskeletal-no joint pain, no muscle tenderness. 1+ pitting edema bilateral lower extremities below the knees has nearly resolved Skin-no bruising, no rashes, no pruritus Neuro-no isolated weakness, no paresthesia Psych-no depression, no anxiety Physical Exam 2 Physical Exam: General-alert and oriented x3, no fever, no chills HEENT-head atraumatic and normocephalic, pupils equal and reactive to light, extraocular muscles intact Neck-no lymphadenopathy or thyromegaly, trachea midline Chest-inspiratory rales have resolved. No wheezing. No dullness to percussion. Cardiac-regular rate and rhythm, normal S1 and S2 Abdomen-normal bowel sounds, nontender, no hepatosplenomegaly Extremities-no cyanosis, clubbing. 1+ pitting edema bilateral lower extremities below the knees has resolved Neuro-cranial nerves II through XII intact, motor and sensory function within normal limits, strength symmetrical and consistent with age, no focal deficits Psych-normal affect, normal mood Results & Data Results & Data Vital Signs (Past 12 Hours) Vital Signs Temp Pulse Pulse Resp BP Pulse Ox O2 Del Method 01/09/24 11:33 36.4 C L 66 18 157/74 H 97 Room Air 01/09/24 08:16 62 01/09/24 07:41 36.6 C 63 18 131/68 94 Room Air 01/09/24 02:04 36.5 C 80 18 143/78 H 93 Room Air Laboratory Results 01/09/24 06:13 01/09/24 06:13 PG Care Time/CCT Total # of Minutes Spent Total Time Spent with Patient: Total time spent is greater than 50% in coordination of care (as documented) at patient's floor/unit and/or counseling patient: Coding Level of Care Code 26096 SUB INP/OBS CARE 3/50MIN Diagnoses Acute hypoxemic respiratory failure J96.01 Acute pulmonary edema J81.0 Hyperglycemia R73.9 ESRD (end stage renal disease) on dialysis N18.6; Z99.2 Hypertension secondary to other renal disorders I15.1; 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
[2024-01-10 07:05] LABS: BUN Creatinine Ratio 9.3 (10-20); Calcium 10.9 mg/dl (8.6-10.3); Est GFR (African American) 15.7 ml/min; Est GFR (Non-African American) 13.5 ml/min; Potassium 4.6 mmol/L (3.5-5.1)
--- NOTE | 2024-01-10 12:39 | Nephrology Progress Note ---
Date of Service January 10, 2024 Assessment & Plan (1) ESRD (end stage renal disease) on dialysis: Plan: IHD MWF. Completed treatment yesterday with adequate UF and clearance. Midodrine held but may be restarted as needed. I will provide a dose prior to HD for intradialytic hypotension. Medications appropriate for kidney function. Renal diet. Fluid restriction 1.2 L/d. Sevelamer QA. Education on dietary sodium and fluid restriction has been provided. (2) Acute hypoxemic respiratory failure: Plan: Due to pulmonary edema associated with ESRD. Improved with UF/HD. Low sodium diet and daily fluid restriction reviewed. Furosemide 80 mg to encourage urine output. (3) Accelerated hypertension: Plan: Midodrine held. BP low but without symptoms. The medication may be restarted as needed. Davin presented with accelerated hypertension and volume overload. Monitoring is being provided. Midodrine will be provided prior to HD. (4) Anemia: Plan: Chronic, stable. Maintained on Micera as outpatient. Admission and Anticipated Discharge Date Admission Date: January 06, 2024 Subjective No acute events overnight. Davin tolerated HD well yesterday. No complications with treatment. Remains weak and considering additional therapy post discharge. Davin told me this morning that he was not sure this was necessary but he was w illing to consider. He admits to some weakness. He denies fluid retention or edema. He is breathing comfortably. He is hypotensive but denies symptoms of lightheadedness, dizziness, no syncope or presyncope. Review of Systems Review of Systems: All systems reviewed & are unremarkable except as noted in HPI & below Physical Exam Constitutional: well developed, + frail appearing and + in distress; no acute distress Eyes: + anicteric sclerae Neck: normal visual inspection Respiratory: normal respiratory effort; not tachypneic Auscultation: lungs clear to auscultation bilaterally Cardiovascular: Rate/Rhythm: regular rate Heart Sounds: normal S1, normal S2 and + murmur Extremities: + edema and + AV fistula (LUE) Musculoskeletal: Extremities: no cyanosis and no clubbing Skin: normal turgor; no lesions Neurologic: Motor/Sensory: no tremor and no asterixis Psychiatric: Orientation: alert and oriented x 3 Results & Data Vital Signs (Past 12 Hours) Vital Signs Temp Pulse Pulse Resp BP Pulse Ox O2 Del Method 01/10/24 10:40 36.5 C 66 18 91/54 L 98 Room Air 01/10/24 07:53 36.7 C 64 16 92/56 L Room Air 01/10/24 07:40 63 01/10/24 02:25 36.8 C 62 18 108/67 93 Room Air 01/10/24 01:33 80 Laboratory Results Laboratory Results - last 24 hr 01/09/24 01/09/24 01/10/24 16:46 20:13 06:12 Sodium 138 Potassium 4.6 Chloride 106 Carbon Dioxide 24 Anion Gap 8 BUN 36 H Creatinine 3.88 H D Est Cr Clr Drug Dosing 16.0 Est GFR ( Amer) 15.7 Est GFR (Non-Af Amer) 13.5 BUN/Creatinine Ratio 9.3 L Glucose 149 H POC Glucose 99 138 H Calcium 10.9 H 01/10/24 01/10/24 07:05 11:10 Sodium Potassium Chloride Carbon Dioxide Anion Gap BUN Creatinine Est Cr Clr Drug Dosing Est GFR ( Amer) Est GFR (Non-Af Amer) BUN/Creatinine Ratio Glucose POC Glucose 131 H 166 H Calcium PG Care Time/CCT Total # of Minutes Spent Total Time Spent with Patient: Total time spent is greater than 50% in coordination of care (as documented) at patient's floor/unit and/or counseling patient: Coding Level of Care Code 99719 SUB INP/OBS CARE 3/50MIN Diagnoses ESRD (end stage renal disease) on dialysis N18.6; Z99.2 Acute hypoxemic respiratory failure J96.01 Accelerated hypertension I10 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
--- NOTE | 2024-01-10 14:30 | Hospitalist Progress Note ---
Date of Service January 10, 2024 Assessment & Plan (1) Acute hypoxemic respiratory failure: Plan: Due to fluid overload causing exacerbation of diastolic CHF. Resolved. He is now on room air. (2) Acute pulmonary edema: Plan: Due to fluid overload and elevated blood pressure. Acute diastolic CH was present on admission. Blood pressure now controlled. Resolved (3) Hyperglycemia: Plan: Type 2 diabetes. Basal insulin therapy. Sliding scale coverage as needed (4) ESRD (end stage renal disease) on dialysis: Plan: Nephrology consultation appreciated. Emergent hemodialysis completed on January 06. He is normally on a Sunday schedule. He will be discharged after his hemodialysis today, January 08 . Case discussed with nephrology. He will be placed on Lasix 80 mg daily going forward (5) Hypertension: Plan: Blood pressure markedly elevated on admission. Parenteral hydralazine was administered. Blood pressure is much better after dialysis. Will follow. Midodrine is being given with HD to prevent hypotension (6) Dyslipidemia: Plan: Stable. Continue Atorvastatin (7) Atrial fibrillation: Plan: Chronic. Rate controlled. Continue metoprolol, amiodarone, Eliquis Plan [facility] placement is pending. Admission and Anticipated Discharge Date Admission Date: January 06, 2024 Subjective Alert and oriented. No distress. Vital signs are stable. He is on room air. Case management pursuing [facility] placement in a dialysis bed. Review of Systems 2 Review of Systems: Constitutional-no fever or chills ENT-no blurred vision, no double vision, no epistaxis, no sore throat Respiratory-no cough, no wheezing. Short of breath at rest has resolved Cardiac-no palpitations, no chest pain, no syncope GI-no nausea, vomiting, diarrhea, melena, hematochezia -no urinary retention, no urinary incontinence, no dysuria, no hematuria Musculoskeletal-no joint pain, no muscle tenderness. 1+ pitting edema bilateral lower extremities below the knees has nearly resolved Skin-no bruising, no rashes, no pruritus Neuro-no isolated weakness, no paresthesia Psych-no depression, no anxiety Physical Exam 2 Physical Exam: General-alert and oriented x3, no fever, no chills HEENT-head atraumatic and normocephalic, pupils equal and reactive to light, extraocular muscles intact Neck-no lymphadenopathy or thyromegaly, trachea midline Chest-inspiratory rales have resolved. No wheezing. No dullness to percussion. Cardiac-regular rate and rhythm, normal S1 and S2 Abdomen-normal bowel sounds, nontender, no hepatosplenomegaly Extremities-no cyanosis, clubbing. 1+ pitting edema bilateral lower extremities below the knees has resolved Neuro-cranial nerves II through XII intact, motor and sensory function within normal limits, strength symmetrical and consistent with age, no focal deficits Psych-normal affect, normal mood Results & Data Results & Data Vital Signs (Past 12 Hours) Vital Signs Temp Pulse Pulse Resp BP Pulse Ox O2 Del Method 01/10/24 10:40 36.5 C 66 18 91/54 L 98 Room Air 01/10/24 07:53 36.7 C 64 16 92/56 L Room Air 01/10/24 07:40 63 Laboratory Results 01/09/24 06:13 01/10/24 06:12 PG Care Time/CCT Total # of Minutes Spent Total Time Spent with Patient: Total time spent is greater than 50% in coordination of care (as documented) at patient's floor/unit and/or counseling patient: Coding Level of Care Code 94931 SUB INP/OBS CARE 2/35MIN Diagnoses Acute hypoxemic respiratory failure J96.01 Acute pulmonary edema J81.0 Hyperglycemia R73.9 ESRD (end stage renal disease) on dialysis N18.6; Z99.2 Hypertension secondary to other renal disorders I15.1; 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
[2024-01-10] MEDS: SEVELAMER CARBONATE 800 MG TAB PO SCH (17:07)
[2024-01-11 07:30] LABS: Hematocrit (blood only) 36.3 % (42.0-52.0); Hemoglobin 11.4 g/dl (14.0-18.0)
[2024-01-11 08:14] LABS: BUN Creatinine Ratio 10.3 (10-20); Calcium 11.5 mg/dl (8.6-10.3); Creatinine Clr Calc Pharmacy 11.5 ml/min; Est GFR (African American) 10.6 ml/min; Est GFR (Non-African American) 9.2 ml/min; Potassium 4.9 mmol/L (3.5-5.1)
[2024-01-11] MEDS: MIDODRINE HCL 2.5 MG TAB PO ONE (09:43)
--- NOTE | 2024-01-11 10:14 | XRay Report ---
SINGLE VIEW CHEST CLINICAL HISTORY: Follow-up congestive heart failure. FINDINGS: An AP, portable, upright chest radiograph is compared to study dated 01/08/2024. A right int ernal jugular central venous catheter is unchanged in position. The heart is enlarged noting atherosc lerotic calcification of the thoracic aorta. There is mild pulmonary vascular congestion. This has im proved from previous. Chronic interstitial thickening is unchanged. There are small pleural effusions with dependent consolidation. This likely represents atelectasis. No pneumothorax is seen. The skele maliha structures are osteopenic. The bony thorax is grossly intact. IMPRESSION: 1. Cardiomegaly with mild pulmonary vascular congestion. This has improved from 01/08/2024. 2. Small pleural effusions. ACT 112: Negative or not required by law. Electronically signed by: Dez Munoz M.D. 01/11/2024 10:13 AM
--- NOTE | 2024-01-11 11:27 | Hospitalist Progress Note ---
Date of Service January 11, 2024 Assessment & Plan (1) Acute hypoxemic respiratory failure: Plan: Due to fluid overload causing exacerbation of diastolic CHF. Resolved. He is now on room air. (2) Acute pulmonary edema: Plan: Due to fluid overload and elevated blood pressure. Acute diastolic CHF was present on admission. Blood pressure was markedly elevated on admission and now is somewhat low. Metoprolol dosage down titrated today, January 10. (3) Hyperglycemia: Plan: Type 2 diabetes. Basal insulin therapy. Sliding scale coverage as needed (4) ESRD (end stage renal disease) on dialysis: Plan: Nephrology consultation appreciated. Emergent hemodialysis completed on January 06. He is normally on a Sunday schedule. Case discussed with nephrology. He has been placed on Lasix 80 mg daily going forward (5) Hypertension: Plan: Blood pressure markedly elevated on admission. Parenteral hydralazine was administered. Blood pressure improved after dialysis. His blood pressure was somewhat low this morning, January 10. Metoprolol dosage has been down titrated. Midodrine is being given with HD to prevent hypotension (6) Dyslipidemia: Plan: Stable. Continue Atorvastatin (7) Atrial fibrillation: Plan: Chronic. Rate controlled. Continue metoprolol, amiodarone, Eliquis Plan [facility] placement is pending. Admission and Anticipated Discharge Date Admission Date: January 06, 2024 Subjective The patient was seen and the dialysis suite. Alert and oriented. No distress. Oxygen saturation is decreasing but he remains on room air. Repeat portable chest x-ray today, January 10, looks okay. He probably has a degree of atelectasis and incentive spirometry has been ordered. Blood pressure was somewhat low this morning and metoprolol dosage down titrated. Awaiting [facility] hemodialysis bed. Review of Systems 2 Review of Systems: Constitutional-no fever or chills ENT-no blurred vision, no double vision, no epistaxis, no sore throat Respiratory-no cough, no wheezing. Short of breath at rest has resolved Cardiac-no palpitations, no chest pain, no syncope GI-no nausea, vomiting, diarrhea, melena, hematochezia -no urinary retention, no urinary incontinence, no dysuria, no hematuria Musculoskeletal-no joint pain, no muscle tenderness. 1+ pitting edema bilateral lower extremities below the knees has nearly resolved Skin-no bruising, no rashes, no pruritus Neuro-no isolated weakness, no paresthesia Psych-no depression, no anxiety Physical Exam 2 Physical Exam: General-alert and oriented x3, no fever, no chills HEENT-head atraumatic and normocephalic, pupils equal and reactive to light, extraocular muscles intact Neck-no lymphadenopathy or thyromegaly, trachea midline Chest-inspiratory rales have resolved. No wheezing. No dullness to percussion. Cardiac-regular rate and rhythm, normal S1 and S2 Abdomen-normal bowel sounds, nontender, no hepatosplenomegaly Extremities-no cyanosis, clubbing. 1+ pitting edema bilateral lower extremities below the knees has resolved Neuro-cranial nerves II through XII intact, motor and sensory function within normal limits, strength symmetrical and consistent with age, no focal deficits Psych-normal affect, normal mood Results & Data Results & Data Vital Signs (Past 12 Hours) Vital Signs Temp Pulse Pulse Pulse Resp BP BP 01/11/24 11:00 62 120/61 01/11/24 10:30 62 123/70 01/11/24 10:00 62 120/56 L 01/11/24 09:45 61 106/61 01/11/24 09:33 36.6 C 59 L 01/11/24 07:35 37.0 C 70 16 81/57 L 01/11/24 03:12 68 01/11/24 02:16 36.8 C 64 18 94/57 L Pulse Ox O2 Del Method 01/11/24 11:00 01/11/24 10:30 01/11/24 10:00 01/11/24 09:45 01/11/24 09:33 01/11/24 07:35 91 Room Air 01/11/24 03:12 01/11/24 02:16 95 Room Air Laboratory Results 01/11/24 06:56 01/11/24 06:56 PG Care Time/CCT Total # of Minutes Spent Total Time Spent with Patient: Total time spent is greater than 50% in coordination of care (as documented) at patient's floor/unit and/or counseling patient: Coding Level of Care Code 01077 SUB INP/OBS CARE 3/50MIN Diagnoses Acute hypoxemic respiratory failure J96.01 Acute pulmonary edema J81.0 Hyperglycemia R73.9 ESRD (end stage renal disease) on dialysis N18.6; Z99.2 Hypertension secondary to other renal disorders I15.1; 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
--- NOTE | 2024-01-11 12:14 | Nephrology Progress Note ---
Date of Service January 11, 2024 Assessment & Plan (1) ESRD (end stage renal disease) on dialysis: Plan: HD MWF. Outpatient Rx 3.5 hrs 180 optiflux, 400/800, 2K 137Na. EDW 94.5 kg. Orders for HD entered into the EHR today. Davin is tolerating treatment well. AVG not ready for use. TDC functioning appropriately. Midodrine has been switched to 5 mg prior to HD. Medications appropriate for kidney function. Renal diet. Fluid restriction 1.2 L/d. Sevelamer QAC. Education on dietary sodium and fluid restriction has been provided. (2) Acute hypoxemic respiratory failure: Plan: Due to pulmonary edema associated with ESRD. Improved with UF/HD. Low sodium diet and daily fluid restriction reviewed. Furosemide 80 mg to encourage urine output. (3) Accelerated hypertension: Plan: Improved with UF. Midodrine held. BP low but without symptoms. Midodrine now pre-HD. Davin presented with accelerated hypertension and volume overload. Monitoring is being provided. (4) Anemia: Plan: Chronic, stable. Maintained on Micera as outpatient. Admission and Anticipated Discharge Date Admission Date: January 06, 2024 Subjective No acute events overnight. Davin was seen and evaluated prior to and during hemodialysis. He is tolerating HD well. BP low at start of treatment. Premedicated with midodrine. Metoprolol dose adjusted by hospitalist. Davin feels well. He denies dyspnea. He hopes to be discharged to rehab prior to the weekend. Review of Systems Review of Systems: All systems reviewed & are unremarkable except as noted in HPI & below Physical Exam Constitutional: well developed and + frail appearing; no acute distress Eyes: + anicteric sclerae Neck: normal visual inspection and trachea midline Respiratory: normal respiratory effort; not tachypneic Auscultation: lungs clear to auscultation bilaterally Cardiovascular: Rate/Rhythm: regular rate Heart Sounds: normal S1, normal S2 and + murmur Extremities: + AV fistula (LUE); no edema Musculoskeletal: Extremities: no cyanosis and no clubbing Skin: normal turgor; no lesions Neurologic: Motor/Sensory: no tremor and no asterixis Psychiatric: Orientation: alert and oriented x 3 Results & Data Vital Signs (Past 12 Hours) Vital Signs Temp Pulse Pulse Pulse Resp BP BP 04/19/24 11:00 62 120/61 04/19/24 10:30 62 123/70 01/11/24 10:00 62 120/56 L 01/11/24 09:45 61 106/61 01/11/24 09:33 36.6 C 59 L 01/11/24 07:35 37.0 C 70 16 81/57 L 01/11/24 03:12 68 01/11/24 02:16 36.8 C 64 18 94/57 L Pulse Ox O2 Del Method 01/11/24 11:00 01/11/24 10:30 01/11/24 10:00 01/11/24 09:45 01/11/24 09:33 01/11/24 07:35 91 Room Air 01/11/24 03:12 01/11/24 02:16 95 Room Air Laboratory Results Laboratory Results - last 24 hr 01/10/24 01/10/24 01/11/24 16:33 20:01 06:56 Hgb 11.4 L Hct 36.3 L Sodium 137 Potassium 4.9 Chloride 106 Carbon Dioxide 21 Anion Gap 10 BUN 55 H Creatinine 5.36 H* D Est Cr Clr Drug Dosing 11.5 Est GFR ( Amer) 10.6 Est GFR (Non-Af Amer) 9.2 BUN/Creatinine Ratio 10.3 Glucose 129 H POC Glucose 112 H 118 H Calcium 11.5 H 01/11/24 07:10 Hgb Hct Sodium Potassium Chloride Carbon Dioxide Anion Gap BUN Creatinine Est Cr Clr Drug Dosing Est GFR ( Amer) Est GFR (Non-Af Amer) BUN/Creatinine Ratio Glucose POC Glucose 120 H Calcium PG Care Time/CCT Total # of Minutes Spent Total Time Spent with Patient: Total time spent is greater than 50% in coordination of care (as documented) at patient's floor/unit and/or counseling patient: Coding Level of Care Code 32139 SUB INP/OBS CARE 3/50MIN Diagnoses ESRD (end stage renal disease) on dialysis N18.6; Z99.2 Acute hypoxemic respiratory failure J96.01 Accelerated hypertension I10 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
[2024-01-11] MEDS: METOPROLOL SUCC 50MG EXT REL TAB PO SCH (20:31)
--- NOTE | 2024-01-12 08:28 | Nephrology Progress Note ---
Date of Service January 12, 2024 Assessment & Plan (1) ESRD (end stage renal disease) on dialysis: Plan: * Dialyzed yesterday for 1500 cc UF using IJ TCC without complication * Labs this am are pending. Patient is clinically euvolemic. No acute indication for HD * Outpatient dialysis orders: HD MWF 3.5 hrs 180 optiflux, 400/800, 2K 137Na. EDW 94.5 kg * AVG not ready for use. TDC functioning appropriately * Continue Midodrine 5 mg prior to each HD treatment (2) Acute hypoxemic respiratory failure: Plan: * Resolved * Continue Furosemide 80 mg daily to encourage urine output in between dialysis sessions (3) Accelerated hypertension: Plan: * Patient has intradialytic hypotension * Midodrine has been changed to 5 mg prior to HD only (4) Anemia: Plan: * Chronic, stable. Maintained on Micera as outpatient. Admission and Anticipated Discharge Date Admission Date: January 06, 2024 Subjective Mr. Gaviria was evaluated in his hospital room this morning. He was breathing comfortably lying flat in bed on RA. Mr. Gaviria reported that he dialyzed yesterday without complication. Review of Systems Constitutional: no fever Eyes: no problem reported Ear, Nose, Mouth, Throat: no problem reported Respiratory: no cough and no dyspnea Cardiovascular: no chest pain Gastrointestinal: no abdominal pain, no nausea, no vomiting and no diarrhea/loose stools Physical Exam Constitutional: not in distress Eyes: PERRL, conjunctivae normal, anicteric sclerae ENMT: external ear and nose normal, oropharynx normal Neck: trachea midline, no thyromegaly R IJ TCC w/ clean, dry dressing in place Respiratory: normal respiratory effort, lungs clear to auscultation Cardiovascular: Rate/Rhythm: regular rate and regular rhythm Gastrointestinal (Abdomen): normal bowel sounds, soft, nontender, no hepatosplenomegaly Skin: no rashes, warm and dry Neurologic: Speech / Cognition: normal speech and normal cognition Results & Data Vital Signs (Past 12 Hours) Vital Signs Temp Pulse Pulse Resp BP Pulse Ox O2 Del Method 01/12/24 07:37 85 01/12/24 07:10 36.4 C L 76 18 143/78 H 96 Room Air 01/12/24 02:43 36.5 C 81 18 92/54 L 91 Room Air 01/12/24 00:23 69 01/11/24 23:04 37 C 71 18 118/70 94 Room Air PG Care Time/CCT Total # of Minutes Spent Total Time Spent with Patient: Total time spent is greater than 50% in coordination of care (as documented) at patient's floor/unit and/or counseling patient: Coding Level of Care Code 83781 SUB INP/OBS CARE 3/50MIN Diagnoses ESRD (end stage renal disease) on dialysis N18.6; Z99.2 Acute hypoxemic respiratory failure J96.01 Accelerated hypertension I10 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
[2024-01-12 09:16] LABS: Hemoglobin 11.1 g/dl (14.0-18.0); Mean Corpuscular Hemoglobin 28.8 pg (25.0-34.0); Mean Corpuscular Volume 96.1 fL (80.0-100.0); Mean Platelet Volume 10.6 fL (9.4-12.4); Platelet Count 259 K/uL (130-400); RDW Coefficient of Variation 16.2 % (11.5-14.5); RDW Standard Deviation 57.9 fL (36.4-46.3); Red Blood Count 3.85 M/uL (4.70-6.10); White Blood Count 6.47 K/ul (4.8-10.8)
--- NOTE | 2024-01-12 11:11 | Discharge Summary ---
Date of Service January 12, 2024 Admission HPI Per Admitting Provider Davin Gaviria is a pleasant 83yo male with history of ESRD on HD q M/W/F, DM, HTN, HLP, ICM presenting with acute onset of respiratory distress with acute hypoxic respiratory failure. Patient has been in his usual state of health. No new symptoms or complaints over the last several days. Patient resides at [facility]. He ate dinner - grilled cheese with tomato and tomato soup then got up to walk to his room. He was able to walk to his room - appx 10 minute walk - no symptoms. He then sat down on his bed and became acutely short of breath. He was unable to catch his breath so he called for help. Staff members called EMS. Per report, patient was quite hypoxic with saturations initially in the 50's. He was given a DuoNeb and placed on CPAP and transported to [facility]. Upon arrival to the ER patient tachypneic and hypertensive at 190/96. He was transitioned to BiPAP. Symptoms have improved. He reports having some substernal chest discomfort and abdominal pain after dinner which has since resolved. Patient denies chest pain, palpitations, weight gain, orthopnea, nausea, vomiting, abdominal pain. NO additional complaints at this time. No use of O2 or CPAP at home Principal Diagnosis Fluid overload with pulmonary edema, acute diastolic CHF, uncontrolled hypertension Discharge Exam General-alert and oriented x3, no fever, no chills HEENT-head atraumatic and normocephalic, pupils equal and reactive to light, extraocular muscles intact Neck-no lymphadenopathy or thyromegaly, trachea midline Chest-inspiratory rales have resolved. No wheezing. No dullness to percussion. Cardiac-regular rate and rhythm, normal S1 and S2 Abdomen-normal bowel sounds, nontender, no hepatosplenomegaly Extremities-no cyanosis, clubbing. 1+ pitting edema bilateral lower extremities below the knees has resolved Neuro-cranial nerves II through XII intact, motor and sensory function within normal limits, strength symmetrical and consistent with age, no focal deficits Psych-normal affect, normal mood Discharge Data Allergies Allergy/AdvReac Type Severity Reaction Status Date / Time latex Allergy Mild SKIN Verified 01/01/24 11:04 IRRITATION Consultations 01/06/24 22:04 Consult Nephrology Routine 01/06/24 22:09 ED Decision to Admit Stat Hospital Course (1) Acute hypoxemic respiratory failure: Due to fluid overload causing exacerbation of diastolic CHF. Resolved. He is now on room air. (2) Acute pulmonary edema: Due to fluid overload and elevated blood pressure. Acute diastolic CHF was present on admission. Blood pressure was markedly elevated on admission and was low on January 11. Metoprolol dosage was down titrated and now the blood pressure has improved. (3) Hyperglycemia: Type 2 diabetes. Basal insulin therapy. Sliding scale coverage as needed (4) ESRD (end stage renal disease) on dialysis: Nephrology consultation appreciated. Emergent hemodialysis completed on January 06. He is normally on a Sunday schedule. He has been placed on Lasix 80 mg daily going forward (5) Hypertension: Blood pressure markedly elevated on admission. Parenteral hydralazine was administered. Blood pressure improved after dialysis. His blood pressure was somewhat low on the morning of January 10. Metoprolol dosage was down titrated and now the blood pressure is much better. Midodrine is being given with HD to prevent hypotension (6) Dyslipidemia: Stable. Continue Atorvastatin (7) Atrial fibrillation: Chronic. Rate controlled. Continue metoprolol, amiodarone, Eliquis Plan Discharge to [facility] today, January 11 Total Time Total Time Spent Total Time Spent (In Minutes): 45 minutes Discharge Plan Discharge Items Patient Disposition: Transfer Correction Fac Reason For Visit: ACUTE HYPOXIC RESPIRATORY FAILURE Discharge Diagnosis: Fluid overload, uncontrolled hypertension, acute pulmonary edema, acute diastolic CHF, acute hypoxic respiratory failure Activity: Resume your previous activity Non-emergency contact: Primary Care Provider and Human Service Worker Call non-emergency contact if: your symptoms worsen Follow-up/Referrals: Orly Dickson MD [Primary Care Provider] - Diet: Carb Consistent or DM2, Dialysis Renal and Heart Healthy Addtl Attending Provider Instructions: Take Lasix 80 mg daily after lunch. All other medications remain the same Pending Studies at Discharge: No Stand-Alone Forms: My [facility] Skilled Items Patient informed of condition?: Yes DNR: Yes Discharge Level of Care: Skilled Communicable Disease: No Discharge Prognosis: Stable Lines: None Urinary Catheter: No Medications and DC Order Prescriptions: New furosemide 80 mg Tablet 80 mg PO QAM Qty: 30 0RF Continued (DME) BD SafetyGlide Insulin Syringe 0.3 mL 31 gauge x 15/64" syringe MISCELLANEOUS Qty: 700 3RF Rx Instructions: Use 7 times daily insulin glargine [Basaglar KwikPen U-100 Insulin] 100 unit/mL (3 mL) insulin pen 20 unit subcut HS (DME) pen needle, diabetic [BD Ultra-Fine Mini Pen Needle] 31 gauge x 3/16" needle See Rx Instructions .ROUTE .COMPLEX Qty: 100 11RF Dose Instruction: USE FOR INSULIN INJECTION NEEDED Rx Instructions: USE FOR INSULIN INJECTION NEEDED Novolin R FlexPen 100 unit/mL (3 mL) insulin pen See Rx Instructions .ROUTE .COMPLEX Qty: 9 11RF Dose Instruction: SLIDING SCALE: (ROTATE SITES) FOUR TIMES DAILY SUBQ 141-175=1UNIT; 176- 210=2UNITS; 211-245=3UNITS; 246-280=4UNITS; 246-280=4UNITS; 281-315=5UNITS; 316- 350=6UNITS Rx Instructions: SLIDING SCALE: (ROTATE SITES) FOUR TIMES DAILY SUBQ 141-175=1UNIT; 176- 210=2UNITS; 211-245=3UNITS; 246-280=4UNITS; 246-280=4UNITS; 281-315=5UNITS; 316- 350=6UNITS atorvastatin 80 mg tablet 80 mg PO QAM Qty: 90 3RF multivitamin Tablet 1 tab PO DAILY Qty: 90 3RF quetiapine 25 mg tablet 25 mg PO HS Qty: 30 5RF amiodarone 200 mg tablet 200 mg PO DAILY Dose Instruction: 1 TAB BY MOUTH EVERY DAY (DME) FreeStyle Ritchie 14 Day Sensor Kit MISCELLANEOUS (DME) FreeStyle Ritchie 14 Day [place] Misc MISCELLANEOUS amoxicillin 500 mg capsule 2,000 mg PO UD Rx Instructions: 1 hr prior to dental procedure. megestrol 40 mg tablet 40 mg PO DAILY Novolin R Regular U100 Insulin 100 unit/mL Solution 2 unit SUBCUT DAILYBB Novolin R Regular U100 Insulin 100 unit/mL Solution 6 unit SUBCUT DAILYBD Novolin R Regular U100 Insulin 100 unit/mL Solution 4 unit SUBCUT DAILYBL clopidogrel 75 mg tablet 75 mg PO DAILY docusate sodium 100 mg tablet 200 mg PO HS Eliquis 2.5 mg tablet 2.5 mg PO Q12 fluticasone propionate 50 mcg/actuation spray,suspension 1 spray intranasal BID tramadol 50 mg tablet 50 mg PO .Q 12 HOURS PRN (Reason: pain) levothyroxine 50 mcg tablet 50 mcg PO DAILYBB Rx Instructions: 1 TAB BY MOUTH EVERY MORNING TAKE ON AN EMPTY STOMACH WITH A FULL GLASS OF WATER WAIT 30 MINUTES TO EAT, DRINK OR TAKE MEDICATIONS pantoprazole 40 mg tablet,delayed release (DR/EC) 40 mg PO DAILYBB Rx Instructions: 1 TAB BY MOUTH EVERY MORNING *DO NOT CRUSH* sevelamer carbonate 800 mg tablet 800 mg PO WM Rx Instructions: 1 TAB BY MOUTH THREE TIMES DAILY WITH MEALS metoprolol succinate 50 mg tablet extended release 24 hr 75 mg PO HS Rx Instructions: 1.5 TABS BY MOUTH AT BEDTIME midodrine 2.5 mg tablet 2.5 mg PO TID Rx Instructions: 1 TAB BY MOUTH THREE TIMES DAILY (0800/1200/1700) Discharge Orders: Discharge Order- CHF (Routine); Ordered 01/12/24 Ordered By: Gregory Marc Admission Data Admit Date/Time: 01/06/24 22:04 Attending Provider: Gregory Marc Admit Provider: Cheryl Cruz Primary Care Provider: Orly Dickson V. Other Providers: Dany Cid; Miguel Reis Kevin C.; Nadja Jade; Cheryl Cruz; [facility] Coding Level of Care Code 82084 INP/OBS DISCH >30 MIN Diagnoses Acute hypoxemic respiratory failure J96.01 Acute pulmonary edema J81.0 Hyperglycemia R73.9 ESRD (end stage renal disease) on dialysis N18.6; Z99.2 Hypertension secondary to other renal disorders I15.1; N28.89 Hypertension type: secondary to other renal disorders Dyslipidemia E78.5 Atrial fibrillation I48.91
[2024-01-12 11:20] LABS: BUN Creatinine Ratio 9.3 (10-20); Creatinine Clr Calc Pharmacy 10.7 ml/min; Est GFR (African American) 11.7 ml/min; Est GFR (Non-African American) 10.1 ml/min; Potassium 4.3 mmol/L (3.5-5.1)
[2024-01-13 19:42] LABS: HBSAG NON-REACTIVE (NON-REACTIVE)
== END 2024-01-12 14:53 | DRG 291 ==
LOC: ED 19:35 → 2S 22:04 → SUATTDRO 22:04 → 2S 23:40

== ENCOUNTER 2024-04-05 01:05 | Inpatient (IN) ==
--- NOTE | 2024-04-05 01:14 | Emergency Department Note ---
Impression & Plan Hypoxia ADMIT ED Provider Note HPI: History obtained from patient. The patient is a 83-year-old gentleman with history of chronic kidney disease, on dialysis Sunday, Sunday, Sunday, coronary artery disease, ischemic cardiomyopathy, who presents the emergency department chief complaint shortness of breath for the past hour and a half. Patient states he was going to the bathroom and began to feel acutely short of breath. Patient denies any chest pain. Of note, patient did have a fistulogram with dilation of an area of his AV fistula earlier today with vascular surgery here at this facility. Patient states that this procedure went well and he has not had any bleeding from the puncture site. On arrival here to the ED the patient is noted to be saturating at 87% on room air with some mild increased work of breathing. ROS: - Per HPI Differential Diagnosis: Pulmonary edema, acute on chronic CHF exacerbation, pneumonia, acute coronary syndrome, amongst other potential pathologies. *Outpatient medications and allergy history reviewed. PE: General: Alert, no acute distress HEENT: Normocephalic, trachea midline Eyes: Extraocular eye movement is intact, no scleral erythema Pulmonary: Slight tachypnea with diminished bilateral breath sounds, no wheezing or crackles Cardio: Regular rate and rhythm GI: Abdomen is soft to palpation : No suprapubic tenderness MSK: No evidence of trauma or malformation of the extremities, no edema, AV fistula without surrounding bleeding or drainage Skin: No evidence of rash Neuro: Alert, no focal deficits Psychiatric: Cooperative INDEPENDENT INTERPRETATIONS: youth nutritional monitor: (As interpreted by myself): - An order was placed for continuous cardiac monitoring - Patient was noted to be in sinus rhythm with a rate of 70 EKG: (As interpreted by myself): Rate: 76 Rhythm: Sinus rhythm Intervals: TX interval 224 ms, otherwise within normal limits ST changes: No ST elevation Time: 0115 Chest x-ray: (As interpreted by myself): -Mild pulmonary vascular congestion Medical Decision Making: IV was established and lab work obtained, patient was placed on court recording monitor, patient was placed on nasal cannula oxygen with good improvement in his presenting hypoxia. Lab work shows no leukocytosis, hemoglobin is stable at 10.5, platelet count is normal, venous blood gas shows a near normal pH at 7.35, pCO2 is normal. CMP does not show any critical findings aside from patient's baseline end-stage renal disease with a creatinine of 6.76, potassium is normal, troponin is mildly elevated at 56 however this appears to be the patient's baseline. Chest x-ray per my interpretation shows some evidence of pulmonary vascular congestion, patient missed his dialysis today which I suspect is likely the source of his hypoxia. Given this, I feel the patient would benefit from admission for his hypoxia and arrangement of dialysis. I discussed the patient's presentation with the on-call admitting hospitalist, Dr. Cruz, and the patient was placed for admission in stable condition. Consultants/Discussions held with other healthcare providers: -Hospitalist, Dr. Cruz Disposition discussion held by myself with: -Patient * CRITICAL CARE TIME: (35) minutes -Stabilization of hypoxia with oxygen saturations at 86% on room air requiring supplemental oxygen for correction, time spent at the bedside, interpretation of diagnostic studies, discussion with other physicians and arrangement of admission Diagnosis: 1. Hypoxia, acute 2. End-stage renal disease on dialysis 3. Anemia, chronic, stable Disposition: Admission Raciel Bills DO Emergency Medicine Past Med/Surg History Problem List (Updated 04/05/24 @ 03:56 by Raciel Bills DO) Hypoxia (Acute) Acute hypoxic respiratory failure Dialysis AV fistula malfunction Physical deconditioning Ischemic cardiomyopathy (Acute) CAD (coronary artery disease) Hypotension (Acute) NSTEMI (non-ST elevated myocardial infarction) CKD (chronic kidney disease), stage V Dialysis AV fistula malfunction CKD (chronic kidney disease), stage IV Sleep disturbance Health care maintenance Hyperparathyroidism (Chronic) ASCVD (arteriosclerotic cardiovascular disease) Allergic rhinitis Mixed conductive and sensorineural hearing loss of right ear with restricted hearing of left ear Back pain Chronic otitis media of right ear with perforated tympanic membrane (Chronic) Generalized osteoarthritis Nephrolithiasis Coronary arteriosclerosis (Chronic) S/p angioplasty 1990 (no stent or hx of CABG) Sensorineural hearing loss (SNHL) of both ears No hearing aids Hypothyroidism (Chronic) Controlled type 2 diabetes mellitus with kidney complication, with long-term current use of insulin (Chronic) Hgb A1C 09/2022 was 7.7 BPH with obstruction/lower urinary tract symptoms Medical History Hemodialysis catheter malfunction Accelerated hypertension Acute hypoxemic respiratory failure Uremia Atrial fibrillation with rapid ventricular response High anion gap metabolic acidosis Cardiomyopathy Acute combined systolic and diastolic CHF, NYHA class 3 Shortness of breath Elevated troponin Closed head injury Acute lactic acidosis Acute hypoxemic respiratory failure Acute pulmonary edema Murmur Skin tear of left forearm without complication Skin tear of left elbow without complication Obesity Chronic renal insufficiency FOLLOWED BY DR. CORDOVA CKD V Acute pulmonary edema Ear drum perforation High blood urea nitrogen (BUN) COVID-19 Elevated troponin End stage renal disease Pneumonia Acute kidney injury superimposed on CKD Acute OK ESRD (end stage renal disease) on dialysis Non-ST elevation OK (NSTEMI) Anemia NSTEMI (non-ST elevated myocardial infarction) Aug 2023 > cath > [facility] > no stents Atrial fibrillation pt unaware Dialysis patient [place] [facility] > M,W,F Pneumonia Sep 2023 > resolved per pt COVID-12 Oct 2023 > resolved Chronic kidney disease BPH (benign prostatic hyperplasia) Arteriovenous fistula Left AVF creation 11/2022- now has occlusion- reason for upcoming procedure History of kidney stones Glaucoma HX OF- S/P TREATMENT- NO CURRENT ISSUES Cyst of kidney, acquired Dyslipidemia Hypertension FOLLOWED BY DR. RAYO Obesity, Class II, BMI 35-39.9 Surgical History History of bilateral knee replacement History of cardiac cath Aug 2023 > cath > [facility] > no stents History of vascular access device right chest at present History of total right knee replacement H/O eye surgery RT/LEFT EYE FOR GLAUCOMA History of cataract surgery LEFT/RT History of total left knee replacement (TKR) X 2 History of lithotripsy a couple times History of tonsillectomy History of angioplasty at the age of 51 History of surgery scrotal hernia repair History of exploratory laparotomy History of umbilical hernia repair History of colonoscopy History of ear surgery Tympanic membrane repair--per pt a couple times Family History Father Cancer of kidney Hypertension Cardiac disorder Family/Other Cancer of kidney Bone cancer Mother Bone cancer Cardiac disorder Hypertension Other No family history of adverse response to anesthesia No family history of bleeding disorder Social History Smoking Status: Former smoker Tobacco Type: Cigarettes Second Hand Exposure: No; Do You Dip or Chew Tobacco: No; Hx Alcohol Use: No Hx Substance Use: No Preferred Language: Hong Konger Communication Ability: Effective Visual Impairment: Limited Hearing Ability: Normal Lot Worker Required: No Beliefs That Will Affect Care: None marital status: / Current Living Situation: Group Home current occupational status: employed 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 How many Children do You have: 1 How many Children do You have Comment: Stepdaughter, 2 grandchildren Feels Safe at Home: Yes Diet: regular caffeine: Yes during the past year weight has: remained stable Dental Care, Regularly: Yes Physical Activity Frequency: 5-6 Times per Week Seatbelt Use: always Sunscreen Use: No Assistive Devices: Walker Allergies Allergies Allergy/AdvReac Type Severity Reaction Status Date / Time latex Allergy Mild SKIN Verified 04/05/24 01:51 IRRITATION Home Meds Home Medications Medication Instructions Recorded Confirmed flash glucose scanning reader 07/19/20 04/03/24 (FreeStyle Ritchie 14 Day [place]) flash glucose sensor (GFG GroupStyle 07/19/20 04/03/24 Ritchie 14 Day Sensor kit) amoxicillin 500 mg capsule 2,000 mg PO DIRECTED PRN 1 HR 01/01/24 04/05/24 PRIOR TO DENTAL PROCEDURES docusate sodium 100 mg tablet 200 mg PO HS 01/01/24 04/05/24 metoprolol succinate 50 mg 75 mg PO HS 01/06/24 04/05/24 tablet,extended release 24 hr insulin glargine 100 unit/mL (3 10 unit subcut BID 01/24/24 04/05/24 mL) subcutaneous pen (Basaglar KwikPen U-100 Insulin) quetiapine 25 mg tablet (Seroquel) 25 mg PO HS 04/04/24 04/05/24 acetaminophen 325 mg tablet 325 mg PO Q4H PRN Pain, Mild 04/05/24 04/05/24 apixaban 2.5 mg tablet (Eliquis) 2.5 mg PO Q12H 04/05/24 04/05/24 midodrine 2.5 mg tablet 2.5 mg PO TIDM 04/05/24 04/05/24 sevelamer carbonate 800 mg tablet 800 mg PO TIDM 04/05/24 04/05/24 Previous Rx's Medication Instructions Recorded insulin syringe,safetyneedle 0.3 #700 ea 01/15/23 mL 31 gauge x 15/64" (BD SafetyGlide Insulin Syringe) pen needle, diabetic 31 gauge x #100 ea 12/06/2312/07" (BD Ultra-Fine Mini Pen Needle) furosemide 80 mg tablet 80 mg PO QAM #30 tabs 01/24/24 amiodarone 200 mg tablet 200 mg PO DAILY #90 tabs 02/15/24 atorvastatin 80 mg tablet 80 mg PO QAM #90 tabs 02/26/24 clopidogrel 75 mg tablet 75 mg PO DAILY #90 tabs 02/26/24 pantoprazole 40 mg tablet,delayed 40 mg PO DAILYBB #90 tabs 03/04/24 release insulin regular human 100 unit/mL See Rx Instructions .Route 03/12/24 (3 mL) subcutaneous pen (Novolin R .COMPLEX #15 mL FlexPen) fluticasone propionate 50 1 spray intranasal BID #16 grams 04/03/24 mcg/actuation nasal spray,suspension levothyroxine 50 mcg tablet 50 mcg PO DAILYBB #90 tabs 04/03/24 multivitamin 1 tab PO DAILY #90 tabs 04/03/24 tramadol 50 mg tablet 50 mg PO Q12H PRN pain #60 tabs 04/03/24 Results & Data (ED) Vital Signs Vital Signs - 24 hr 04/05/24 01:17 04/05/24 01:24 04/05/24 01:24 Temperature 36.9 C Temperature Source Oral Pulse Rate 76 76 76 Pulse Rate from SpO2 Sensor Pulse Rhythm Regular Regular Pulse Strength Normal Respiratory Rate 26 H Respiratory Effort / Characteristics Non-Labored Spontaneous Respiratory Depth Normal Respiratory Pattern Regular Blood Pressure 128/75 Blood Pressure Mean 92 Blood Pressure Position Lying Pulse Oximetry 86 L 86 L Oxygen Delivery Method Room Air Room Air Oxygen Flow Rate Sepsis Recent Fever Within 48 Hours No Sepsis New/Unexplained Change in Mental Status N/A Sepsis Action Taken by Nursing No Action Required Oxygen Flow Rate - Titration Pulse Oximetry Post Tiitration 04/05/24 01:24 04/05/24 03:00 Temperature Temperature Source Pulse Rate 73 Pulse Rate from SpO2 Sensor 73 Pulse Rhythm Pulse Strength Respiratory Rate 18 Respiratory Effort / Characteristics Respiratory Depth Respiratory Pattern Blood Pressure 138/85 Blood Pressure Mean 102 Blood Pressure Position Pulse Oximetry 86 L 96 Oxygen Delivery Method Room Air Nasal Cannula Oxygen Flow Rate 0 2 Sepsis Recent Fever Within 48 Hours Sepsis New/Unexplained Change in Mental Status Sepsis Action Taken by Nursing Oxygen Flow Rate - Titration 2 Pulse Oximetry Post Tiitration 96 Laboratory Data 04/05/24 01:21 04/05/24 01:21 Lab Results 04/05/24 Range/Units 01:21 WBC 6.61 (4.8-10.8) K/ul RBC 3.42 L (4.70-6.10) M/uL Hgb 10.5 L (14.0-18.0) g/dl Hct 33.3 L (42.0-52.0) % MCV 97.4 (80.0-100.0) fL MCH 30.7 (25.0-34.0) pg MCHC 31.5 L (32.0-36.0) g/dL RDW Std Deviation 61.5 H (36.4-46.3) fL RDW Coeff of Aysha 17.4 H (11.5-14.5) % Plt Count 198 (130-400) K/uL MPV 10.3 (9.4-12.4) fL Immature Gran % (Auto) 0.6 % Neut % (Auto) 77.6 % Lymph % (Auto) 9.1 % [place] % (Auto) 9.8 % Eos % (Auto) 2.4 % Baso % (Auto) 0.5 % Neut # (Auto) 5.13 (1.40-6.50) K/uL Lymph # (Auto) 0.60 L (1.20-3.40) K/uL [place] # (Auto) 0.65 H (0.11-0.59) K/uL Eos # (Auto) 0.16 (0.00-0.50) K/uL Baso # (Auto) 0.03 (0.00-0.20) K/uL Immature Gran # (Auto) 0.04 (0.01-0.20) K/uL PT 11.5 (9.0-12.0) Seconds INR 1.1 (0.9-1.1) VBG pH 7.35 L (7.36-7.41) VBG pCO2 49 (38-50) mmHg VBG pO2 29 mmHg VBG HCO3 27 mmol/L VBG O2 Saturation < 60.0 % VBG Base Excess 0.8 mEq/L Sodium 136 (136-145) mmol/L Potassium 4.8 (3.5-5.1) mmol/L Chloride 100 (98-107) mmol/L Carbon Dioxide 25 (21-32) mmol/L Anion Gap 11 (3-11) BUN 65 H (6-23) mg/dl Creatinine 6.76 H* (0.6-1.4) mg/dl Est Cr Clr Drug Dosing 10.4 ml/min Est GFR ( Amer) 8.0 ml/min Est GFR (Non-Af Amer) 6.9 ml/min BUN/Creatinine Ratio 9.6 L (10-20) Glucose 214 H (70-99(Fasting)) mg/dl Calcium 9.3 (8.6-10.3) mg/dl Total Bilirubin 0.5 (0.2-1.0) mg/dl AST 11 L (13-39) U/L ALT 6 L (7-52) U/L Alkaline Phosphatase 121 H (34-104) U/L Troponin I High Sens 56.0 H* (0-20) pg/ml Total Protein 7.2 (6.0-8.3) gm/dl Albumin 4.0 (3.4-5.0) gm/dl Globulin 3.2 (2.5-4.0) gm/dl Albumin/Globulin Ratio 1.3 (0.9-2) Lipase 23 (11-82) U/L Discharge Plan Visit Data Chief Complaint: Shortness of Breath/Dyspnea Stated Complaint: SOB ED Provider: Raciel Bills Discharge Problem: Hypoxia Patient Disposition: Admitted As Inpatient Discharge Instructions Interventions: ED Discharge Assessment Last Done: 04/05/24 03:33
[2024-04-05 01:35] LABS: Base Excess VBG 0.8 mEq/L; HCO3 VBG 27 mmol/L; Oxygen Saturation VBG < 60.0 %; PCO2 VBG 49 mmHg (38-50); PO2 VBG 29 mmHg; pH VBG 7.35 (7.36-7.41)
[2024-04-05 01:49] LABS: Basophils # (auto) 0.03 K/uL (0.00-0.20); Basophils % (auto) 0.5 %; Eosinophils # (auto) 0.16 K/uL (0.00-0.50); Eosinophils % (auto) 2.4 %; Hematocrit (blood only) 33.3 % (42.0-52.0); Hemoglobin 10.5 g/dl (14.0-18.0); Immature Granulocytes # (auto) 0.04 K/uL (0.01-0.20); Immature Granulocytes % (auto) 0.6 %; Lymphocytes % (auto) 9.1 %; Mean Corpuscular Hemoglobin 30.7 pg (25.0-34.0); Mean Corpuscular Hgb Conc 31.5 g/dL (32.0-36.0); Mean Corpuscular Volume 97.4 fL (80.0-100.0); Mean Platelet Volume 10.3 fL (9.4-12.4); Monocytes # (auto) 0.65 K/uL (0.11-0.59); Monocytes % (auto) 9.8 %; Neutrophils # (auto) 5.13 K/uL (1.40-6.50); Neutrophils % (auto) 77.6 %; Platelet Count 198 K/uL (130-400); RDW Coefficient of Variation 17.4 % (11.5-14.5); RDW Standard Deviation 61.5 fL (36.4-46.3); Red Blood Count 3.42 M/uL (4.70-6.10); White Blood Count 6.61 K/ul (4.8-10.8)
[2024-04-05 02:20] LABS: INR 1.1 (0.9-1.1); Prothrombin Time 11.5 Seconds (9.0-12.0)
[2024-04-05 02:25] LABS: Albumin Globulin Ratio 1.3 (0.9-2); BUN Creatinine Ratio 9.6 (10-20); Bilirubin,Total 0.5 mg/dl (0.2-1.0); Calcium 9.3 mg/dl (8.6-10.3); Creatinine Clr Calc Pharmacy 10.4 ml/min; Est GFR (Non-African American) 6.9 ml/min; Globulin 3.2 gm/dl (2.5-4.0); Potassium 4.8 mmol/L (3.5-5.1); Total Protein 7.2 gm/dl (6.0-8.3)
--- NOTE | 2024-04-05 03:12 | History & Physical Report ---
Date of Service April 05, 2024 Assessment & Plan (1) Acute hypoxic respiratory failure: Plan: 83yo male with ESRD on HD, CAD, HTN, HLP, AF and CHF presenting with acute hypoxic respiratory failure. Patient hypoxic on arrival at 86% on room air. He has been placed on 2L NC with improvement in saturations - now 96% on 2L. No respiratory distress. He does not use supplemental O2 at home. Likely secondary to volume overload, missed HD on Sunday due to scheduled fis tulogram. -Admit to medical -Maintain supplemental O2 - goal saturation >92% -Continue home Lasix 80mg po - can give IV dose if patient's O2 worsens (2) End stage renal disease: Plan: Patient with ESRD on HD q M// - last HD session on 04/02/24 -Consult Nephrology for HD tomorrow -Continue Midodrine TID -Continue Renvela Plan Atrial fibrillation - presently in SR -Continue Amiodarone 200mg po daily -Continue Apixaban renally dosed 2.5mg po BID Diabetes - blood sugar elevated at 214 -Continue Lantus 10u BID -ISS, goal BS 110 - 140 Hyperlipidemia - chronic. stable -Continue Atorvastatin 80mg po qAM CAD - chronic. stable. No chest pain. Troponin is elevated at 56 which is lower than prior. -Repeat troponin in AM -Continue Plavix, Atorvastatin, Metoprolol Hypothyroidism - chronic. TSH within normal limits at 3.03 on 02/26/24 -Continue Synthroid GERD - chronic. stable -Continue Protonix F/E/N- Saline lock. Electrolytes WNL, repeat labs in AM, CC/Renal diet Ppx - Continue home Apixaban Code - DNR/DNI per discussion with patient Dispo - Admit to medical History of Present Illness Chief Complaint: shortness of breath Primary Care Provider: Orly Dickson MD Davin Gaviria is an 83yo male with history of ESRD on HD M/W/, CAD, HTN, HLP and AF on Eliquis anticoagulation presenting from home with acute shortness of breath and acute hypoxic respiratory failure. Patient had a fistulogram performed yesterday 04/04/24 which went well. He did not have HD yesterday. This evening he presents with shortness of breath. He got up at home to use the bathroom around 12:00 after which he was very short of breath. He denies chest pain, palpitations, abdominal pain, nausea, vomiting or diarrhea. He has a cough productive for mucus - unable to say if purulent or bloody. No report of fever or chills. Patient hypoxic on arrival at 86% on room air. He was placed on NC - currently saturating well at 96% on 2L Allergies Allergy/AdvReac Type Severity Reaction Status Date / Time latex Allergy Mild SKIN Verified 04/05/24 01:51 IRRITATION Home Medications Medication Instructions Recorded Confirmed Type flash glucose scanning reader 07/19/20 04/03/24 History (FreeStyle [place]ie 14 Day [place]) flash glucose sensor (FreeStyle 07/19/20 04/03/24 History Ritchie 14 Day Sensor kit) insulin syringe,safetyneedle 0.3 #700 ea 01/15/23 04/03/24 Rx mL 31 gauge x 15/64" (BD SafetyGlide Insulin Syringe) pen needle, diabetic 31 gauge x #100 ea 12/06/23 04/03/24 Rx 3/16" (BD Ultra-Fine Mini Pen Needle) amoxicillin 500 mg capsule 2,000 mg PO DIRECTED PRN 1 HR 01/01/24 04/05/24 History PRIOR TO DENTAL PROCEDURES docusate sodium 100 mg tablet 200 mg PO HS 01/01/24 04/05/24 History metoprolol succinate 50 mg 75 mg PO HS 01/06/24 04/05/24 History tablet,extended release 24 hr furosemide 80 mg tablet 80 mg PO QAM #30 tabs 01/24/24 04/05/24 Rx insulin glargine 100 unit/mL (3 10 unit subcut BID 01/24/24 04/05/24 History mL) subcutaneous pen (Basaglar KwikPen U-100 Insulin) amiodarone 200 mg tablet 200 mg PO DAILY #90 tabs 02/15/24 04/05/24 Rx atorvastatin 80 mg tablet 80 mg PO QAM #90 tabs 02/26/24 04/05/24 Rx clopidogrel 75 mg tablet 75 mg PO DAILY #90 tabs 02/26/24 04/05/24 Rx pantoprazole 40 mg tablet,delayed 40 mg PO DAILYBB #90 tabs 03/04/24 04/05/24 Rx release insulin regular human 100 unit/mL See Rx Instructions .Route 03/12/24 04/05/24 Rx (3 mL) subcutaneous pen (Novolin R .COMPLEX #15 mL FlexPen) fluticasone propionate 50 1 spray intranasal BID #16 grams 04/03/24 04/05/24 Rx mcg/actuation nasal spray,suspension levothyroxine 50 mcg tablet 50 mcg PO DAILYBB #90 tabs 04/03/24 04/05/24 Rx multivitamin 1 tab PO DAILY #90 tabs 04/03/24 04/05/24 Rx tramadol 50 mg tablet 50 mg PO Q12H PRN pain #60 tabs 04/03/24 04/05/24 Rx quetiapine 25 mg tablet (Seroquel) 25 mg PO HS 04/04/24 04/05/24 History acetaminophen 325 mg tablet 325 mg PO Q4H PRN Pain, Mild 04/05/24 04/05/24 History apixaban 2.5 mg tablet (Eliquis) 2.5 mg PO Q12H 04/05/24 04/05/24 History midodrine 2.5 mg tablet 2.5 mg PO TIDM 04/05/24 04/05/24 History sevelamer carbonate 800 mg tablet 800 mg PO TIDM 04/05/24 04/05/24 History Past Med/Surg History Problem List (Updated 04/05/24 @ 03:33 by Cheryl Cruz DO) Acute hypoxic respiratory failure Dialysis AV fistula malfunction Physical deconditioning Ischemic cardiomyopathy (Acute) CAD (coronary artery disease) Hypotension (Acute) NSTEMI (non-ST elevated myocardial infarction) CKD (chronic kidney disease), stage V Dialysis AV fistula malfunction CKD (chronic kidney disease), stage IV Sleep disturbance Health care maintenance Hyperparathyroidism (Chronic) ASCVD (arteriosclerotic cardiovascular disease) Allergic rhinitis 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 Back pain Chronic otitis media of right ear with perforated tympanic membrane (Chronic) Generalized osteoarthritis Nephrolithiasis Coronary arteriosclerosis (Chronic) S/p angioplasty 1990 (no stent or hx of CABG) Sensorineural hearing loss (SNHL) of both ears No hearing aids Hypothyroidism (Chronic) Controlled type 2 diabetes mellitus with kidney complication, with long-term c urrent use of insulin (Chronic) Hgb A1C 09/2022 was 7.7 BPH with obstruction/lower urinary tract symptoms Medical History Hemodialysis catheter malfunction Accelerated hypertension Acute hypoxemic respiratory failure Uremia Atrial fibrillation with rapid ventricular response High anion gap metabolic acidosis Cardiomyopathy Acute combined systolic and diastolic CHF, NYHA class 3 Shortness of breath Elevated troponin Closed head injury Acute lactic acidosis Acute hypoxemic respiratory failure Acute pulmonary edema Murmur Skin tear of left forearm without complication Skin tear of left elbow without complication Obesity Chronic renal insufficiency FOLLOWED BY DR. CORDOVA CKD V Acute pulmonary edema Ear drum perforation High blood urea nitrogen (BUN) COVID-19 Elevated troponin End stage renal disease Pneumonia Acute kidney injury superimposed on CKD Acute DE ESRD (end stage renal disease) on dialysis Non-ST elevation DE (NSTEMI) Anemia NSTEMI (non-ST elevated myocardial infarction) Aug 2023 > cath > [facility] > no stents Atrial fibrillation pt unaware Dialysis patient [facility] on [facility] > M,W,F Pneumonia Sep 2023 > resolved per pt COVID-12 Oct 2023 > resolved Chronic kidney disease BPH (benign prostatic hyperplasia) Arteriovenous fistula Left AVF creation 11/2022- now has occlusion- reason for upcoming procedure History of kidney stones Glaucoma HX OF- S/P TREATMENT- NO CURRENT ISSUES Cyst of kidney, acquired Dyslipidemia Hypertension FOLLOWED BY DR. RAYO Obesity, Class II, BMI 35-39.9 Surgical History History of bilateral knee replacement History of cardiac cath Aug 2023 > cath > [facility] > no stents History of vascular access device right chest at present History of total right knee replacement H/O eye surgery RT/LEFT EYE FOR GLAUCOMA History of cataract surgery LEFT/RT History of total left knee replacement (TKR) X 2 History of lithotripsy a couple times History of tonsillectomy History of angioplasty at the age of 51 History of surgery scrotal hernia repair History of exploratory laparotomy History of umbilical hernia repair History of colonoscopy History of ear surgery Tympanic membrane repair--per pt a couple times Family History Father Cancer of kidney Hypertension Cardiac disorder Family/Other Cancer of kidney Bone cancer Mother Bone cancer Cardiac disorder Hypertension Other No family history of adverse response to anesthesia No family history of bleeding disorder Social History (Reviewed 04/05/24 @ 03:28 by MATT Lomas Smoking Status: Former smoker Tobacco Type: Cigarettes Second Hand Exposure: No; Do You Dip or Chew Tobacco: No; Hx Alcohol Use: No Hx Substance Use: No Preferred Language: Mongolian Communication Ability: Effective Visual Impairment: Limited Hearing Ability: Normal Rail Washer Required: No Beliefs That Will Affect Care: None marital status: / Current Living Situation: Detention current occupational status: employed 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 How many Children do You have: 1 How many Children do You have Comment: Stepdaughter, 2 grandchildren Feels Safe at Home: Yes Diet: regular caffeine: Yes during the past year weight has: remained stable Dental Care, Regularly: Yes Physical Activity Frequency: 5-6 Times per Week Seatbelt Use: always Sunscreen Use: No Assistive Devices: Walker Review of Systems Review of Systems: All systems reviewed & are unremarkable except as noted in HPI & below Physical Exam Physical Exam: General: patient resting comfortably, NAD, non-toxic in appearance, AA&O x 4 Skin: warm, dry, intact, no rashes or lesions HEENT: NC/AT, PERRL, EOMI, anicteric sclera, conjunctiva without injection, external ear normal to inspection and nontender, nares patent, moist mucus membranes, dentition intact, no oropharyngeal lesions, neck supple, trachea midline, no LAD, no thyromegaly, no JVD Heart: +S1/S2, regular, 4/6 PRAVEEN across the precordium Lungs: + crackles to mid-lung fontana bilaterally Abd: +BS, soft, NT/ND, no masses/organomegaly/ascites Ext: warm, 2+ pulses in UE/LE bilaterally, no clubbing/cyanosis, 2+ pitting edema of bilateral LE, LUE AV fistula with palpable thrill, extensive bruising present from recent fistulogram, no hematoma Neuro: nonfocal, patient AA&O x 4, speech intact, no facial droop, moving all extremities on command with equal strength 5/5 Results & Data Results & Data Vital Signs (Past 12 Hours) Vital Signs Temp Pulse Resp BP Pulse Ox O2 Del Method O2 Flow Rate 04/05/24 01:24 86 L Room Air 0 04/05/24 01:24 76 86 L Room Air 04/05/24 01:24 36.9 C 76 26 H 128/75 86 L Room Air 04/05/24 01:17 76 Laboratory Results Laboratory Results WBC 6.61 K/ul (4.8-10.8) 04/05/24 01:21 RBC 3.42 M/uL (4.70-6.10) L 04/05/24 01:21 Hgb 10.5 g/dl (14.0-18.0) L 04/05/24 01:21 Hct 33.3 % (42.0-52.0) L 04/05/24 01:21 MCV 97.4 fL (80.0-100.0) 04/05/24 01:21 MCH 30.7 pg (25.0-34.0) 04/05/24 01:21 MCHC 31.5 g/dL (32.0-36.0) L 04/05/24 01:21 RDW Std Deviation 61.5 fL (36.4-46.3) H 04/05/24 01:21 RDW Coeff of Aysha 17.4 % (11.5-14.5) H 04/05/24 01:21 Plt Count 198 K/uL (130-400) 04/05/24 01:21 MPV 10.3 fL (9.4-12.4) 04/05/24 01:21 Immature Gran % (Auto) 0.6 % 04/05/24 01:21 Neut % (Auto) 77.6 % 04/05/24 01:21 Lymph % (Auto) 9.1 % 04/05/24 01:21 [place]kins % (Auto) 9.8 % 04/05/24 01:21 Eos % (Auto) 2.4 % 04/05/24 01:21 Baso % (Auto) 0.5 % 04/05/24 01:21 Neut # (Auto) 5.13 K/uL (1.40-6.50) 04/05/24 01:21 Lymph # (Auto) 0.60 K/uL (1.20-3.40) L 04/05/24 01:21 [place] # (Auto) 0.65 K/uL (0.11-0.59) H 04/05/24 01:21 Eos # (Auto) 0.16 K/uL (0.00-0.50) 04/05/24 01:21 Baso # (Auto) 0.03 K/uL (0.00-0.20) 04/05/24 01:21 Immature Gran # (Auto) 0.04 K/uL (0.01-0.20) 04/05/24 01:21 PT 11.5 Seconds (9.0-12.0) 04/05/24 01:21 INR 1.1 (0.9-1.1) 04/05/24 01:21 VBG pH 7.35 (7.36-7.41) L 04/05/24 01:21 VBG pCO2 49 mmHg (38-50) 04/05/24 01:21 VBG pO2 29 mmHg 04/05/24 01:21 VBG HCO3 27 mmol/L 04/05/24 01:21 VBG O2 Saturation < 60.0 % 04/05/24 01:21 VBG Base Excess 0.8 mEq/L 04/05/24 01:21 Sodium 136 mmol/L (136-145) 04/05/24 01:21 Potassium 4.8 mmol/L (3.5-5.1) 04/05/24 01:21 Chloride 100 mmol/L (98-107) 04/05/24 01:21 Carbon Dioxide 25 mmol/L (21-32) 04/05/24 01:21 Anion Gap 11 (3-11) 04/05/24 01:21 BUN 65 mg/dl (6-23) H 04/05/24 01:21 Creatinine 6.76 mg/dl (0.6-1.4) H* 04/05/24 01:21 Est Cr Clr Drug Dosing 10.4 ml/min 04/05/24 01:21 Est GFR ( Amer) 8.0 ml/min 04/05/24 01:21 Est GFR (Non-Af Amer) 6.9 ml/min 04/05/24 01:21 BUN/Creatinine Ratio 9.6 (10-20) L 04/05/24 01:21 Glucose 214 mg/dl (70-99(Fasting)) H 04/05/24 01:21 Calcium 9.3 mg/dl (8.6-10.3) 04/05/24 01:21 Total Bilirubin 0.5 mg/dl (0.2-1.0) 04/05/24 01:21 AST 11 U/L (13-39) L 04/05/24 01:21 ALT 6 U/L (7-52) L 04/05/24 01:21 Alkaline Phosphatase 121 U/L (34-104) H 04/05/24 01:21 Troponin I High Sens 56.0 pg/ml (0-20) H* 04/05/24 01:21 Total Protein 7.2 gm/dl (6.0-8.3) 04/05/24 01:21 Albumin 4.0 gm/dl (3.4-5.0) 04/05/24 01:21 Globulin 3.2 gm/dl (2.5-4.0) 04/05/24 01:21 Albumin/Globulin Ratio 1.3 (0.9-2) 04/05/24 01:21 Lipase 23 U/L (11-82) 04/05/24 01:21 ECG Additional Comments: EKG with SR at 76bpm, left axis deviation, HX=995, HIY=583, WYf=241, LVH present Code Status & VTE Plan VTE Prophylaxis Plan VTE Prophylaxis will be ordered: Yes PG Care Time/CCT Total # of Minutes Spent Total Time Spent with Patient: Total time spent is greater than 50% in coordination of care (as documented) at patient's floor/unit and/or counseling patient: Coding Level of Care Code 32582 INT INP/OBS CARE 2/55MIN Diagnoses Acute hypoxic respiratory failure J96.01 End stage renal disease N18.6
[2024-04-05] MEDS ORDERED: DEXTROSE 50% 50 ML SYRINGE IV PRN (04:03)
[2024-04-05] MEDS ORDERED: GLUCAGON FOR INJ 1 MG VIAL SQ PRN (04:03)
[2024-04-05] MEDS ORDERED: CARBOHYDRATES FOR HYPOGLYCEMIA PO PRN (04:03)
[2024-04-05] MEDS ORDERED: GLUCOSE 10 TAB/TUBE PO PRN (04:03)
[2024-04-05] MEDS ORDERED: traMADol HCL 50 MG TABLET PO PRN (04:03)
[2024-04-05] MEDS ORDERED: GLUCOSE 40% GEL 15 GM TUBE PO PRN (04:03)
[2024-04-05] MEDS ORDERED: ACETAMINOPHEN 325 MG TAB PO PRN (04:03)
[2024-04-05] MEDS: LEVOTHYROXINE SODIUM 50 MCG TABLET PO SCH (05:42)
[2024-04-05] MEDS: PANTOprazole 40 MG TAB PO SCH (05:42)
--- NOTE | 2024-04-05 06:21 | XRay Report ---
SINGLE VIEW CHEST CLINICAL HISTORY: Dyspnea FINDINGS: 2 AP, portable, upright chest radiographs are compared to study dated 01/11/2024. A right in ternal jugular central venous catheter is unchanged in position. The heart is enlarged noting atheros clerotic calcification of the thoracic aorta. There is pulmonary vascular congestion. Bilateral airsp tanya opacities likely represent interstitial edema. There are small pleural effusions with dependent c onsolidation. No pneumothorax is seen. The skeletal structures are osteopenic. The bony thorax is betzy ssly intact. IMPRESSION: 1. Cardiomegaly with evidence of congestive failure. 2. Bilateral airspace opacities likely represent pulmonary edema. Correlate clinically for evidence o f a superimposed infectious/inflammatory pneumonitis. Radiographic follow-up to resolution is recomme nded. 3. Small pleural effusions with dependent consolidation. ACT 112: Negative or not required by law. Electronically signed by: Dez Munoz M.D. 04/05/2024 6:19 AM
[2024-04-05] MEDS: LANTUS PER UNIT CHARGE SQ SCH (08:31)
[2024-04-05] MEDS: INSULIN ASPART PER UNIT CHARGE SC SCH (08:31)
[2024-04-05] MEDS: CLOPIDOGREL BISULFATE 75 MG TAB PO SCH (08:32)
[2024-04-05] MEDS: APIXABAN 2.5 MG TAB PO SCH (08:32)
[2024-04-05] MEDS: ATORVASTATIN 40 MG TAB PO SCH (08:32)
[2024-04-05] MEDS: FLUTICASONE PROPIONATE NA SPR 16 GM BTL SCH (08:32)
[2024-04-05] MEDS: SEVELAMER CARBONATE 800 MG TAB PO SCH (08:32)
--- NOTE | 2024-04-05 08:40 | Nephrology Consultation ---
Date of Consultation April 05, 2024 Assessment & Plan (1) End stage renal disease: * CHF due to missed HD treatment 04/05/24. Patient presents 4.5 kg above EDW w/ hypoxemia and CXR c/w CHF * Will arrange for emergency HD this am. Orders have been entered into EMR and HD RN notified. Will use IJ TCC as vascular access and attempt 4 L UF utilizing Crit-Line monitor * Outpatient HD Rx: 3.5hr 2K 2Ca Na 137 HCO3 35 Qb 400 F-180NR EDW 97.5 kg * PRP, CBC in am * If discharge is anticipated, have patient resume his regular outpatient HD schedule at [facility] on Sunday * Discussed importance of not missing any HD treatments w/ patient today. Advised him to consult w/ dialysis community health educator whenever disruption to schedule is anticipated so that outpatient schedule can be adjusted to accommodate him (2) Dialysis AV fistula malfunction: * L BC AVF created 07/03/23. This has been slow to mature. Fistulogram + MARINE ERECTOR performed 04/04/[address] Godinez * Patient still has R IJ TCC in place (3) Acute hypoxic respiratory failure: * Patient presented to EMD w/ hypoxemia 04/04/24 after missing HD treatment. CXR c/w CHF. Patient is 4.5 kg above HD EDW. He currently has no angina or infectious symptoms (4) Atrial fibrillation: * On Amiodarone and Eliquis. HR is controlled (5) Anemia: * Mild, asymptomatic anemia. Will provide CATY w/ HD today History of Present Illness Reason for Consultation: ESKD-D Attending Physician: Roxann Barrett MD History of Present Illness Mr. Gaviria is an 83 year old white male who is seen at the request of the [facility] [place] [place] hospitalist service to provide in-patient HD and assist w/ medical management. Information for the HPI is obtained from direct patient interview and review of the EMR. HPI is summarized as follows: Mr. 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 He dialyzes MWF at [facility] (3.5hr 2K 2Ca Na 137 HCO3 35 Qb 400 F-180NR EDW 97.5 kg). His primary Solution Designer is Dr. Snow. Mr. Gaviria underwent L RC AVF 3/[address] Godinez. Unfortunately, this failed. L BC AVF was then created 07/03/23. Unfortunately this failed to mature. 04/04/24 Mr. Gaviria did not attend dialysis but rather underwent fistulogram with MARINE ERECTOR and was discharged to home. Last evening he became progressively dyspneic and presented to [facility] EMD for evaluation. RA SaO2 was 87% and CXR revealed pulmonary vascular congestion. Admission was advised to provide supplemental oxygen followed by HD 04/05/24. 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 Allergies Allergy/AdvReac Type Severity Reaction Status Date / Time latex Allergy Mild SKIN Verified 04/05/24 01:51 IRRITATION Home Medications Medication Instructions Recorded Confirmed Type flash glucose scanning reader 07/19/20 04/03/24 History (FreeStyle Ritchie 14 Day [place]) flash glucose sensor (FreeStyle 07/19/20 04/03/24 History Ritchie 14 Day Sensor kit) insulin syringe,safetyneedle 0.3 #700 ea 01/15/23 04/03/24 Rx mL 31 gauge x 15/64" (BD SafetyGlide Insulin Syringe) pen needle, diabetic 31 gauge x #100 ea 12/06/23 04/03/24 Rx 3/16" (BD Ultra-Fine Mini Pen Needle) amoxicillin 500 mg capsule 2,000 mg PO DIRECTED PRN 1 HR 01/01/24 04/05/24 History PRIOR TO DENTAL PROCEDURES docusate sodium 100 mg tablet 200 mg PO HS 01/01/24 04/05/24 History metoprolol succinate 50 mg 75 mg PO HS 01/06/24 04/05/24 History tablet,extended release 24 hr furosemide 80 mg tablet 80 mg PO QAM #30 tabs 01/24/24 04/05/24 Rx insulin glargine 100 unit/mL (3 10 unit subcut BID 01/24/24 04/05/24 History mL) subcutaneous pen (Paolaaglar KwikPen U-100 Insulin) amiodarone 200 mg tablet 200 mg PO DAILY #90 tabs 02/15/24 04/05/24 Rx atorvastatin 80 mg tablet 80 mg PO QAM #90 tabs 02/26/24 04/05/24 Rx clopidogrel 75 mg tablet 75 mg PO DAILY #90 tabs 02/26/24 04/05/24 Rx pantoprazole 40 mg tablet,delayed 40 mg PO DAILYBB #90 tabs 03/04/24 04/05/24 Rx release insulin regular human 100 unit/mL See Rx Instructions .Route 03/12/24 04/05/24 Rx (3 mL) subcutaneous pen (Novolin R .COMPLEX #15 mL FlexPen) fluticasone propionate 50 1 spray intranasal BID #16 grams 04/03/24 04/05/24 Rx mcg/actuation nasal spray,suspension levothyroxine 50 mcg tablet 50 mcg PO DAILYBB #90 tabs 04/03/24 04/05/24 Rx multivitamin 1 tab PO DAILY #90 tabs 04/03/24 04/05/24 Rx tramadol 50 mg tablet 50 mg PO Q12H PRN pain #60 tabs 04/03/24 04/05/24 Rx quetiapine 25 mg tablet (Seroquel) 25 mg PO HS 04/04/24 04/05/24 History acetaminophen 325 mg tablet 325 mg PO Q4H PRN Pain, Mild 04/05/24 04/05/24 History apixaban 2.5 mg tablet (Eliquis) 2.5 mg PO Q12H 04/05/24 04/05/24 History midodrine 2.5 mg tablet 2.5 mg PO TIDM 04/05/24 04/05/24 History sevelamer carbonate 800 mg tablet 800 mg PO TIDM 04/05/24 04/05/24 History Patient History Medical History Hemodialysis catheter malfunction Accelerated hypertension Acute hypoxemic respiratory failure Uremia Atrial fibrillation with rapid ventricular response High anion gap metabolic acidosis Cardiomyopathy Acute combined systolic and diastolic CHF, NYHA class 3 Shortness of breath Elevated troponin Closed head injury Acute lactic acidosis Acute hypoxemic respiratory failure Acute pulmonary edema Murmur Skin tear of left forearm without complication Skin tear of left elbow without complication Obesity Chronic renal insufficiency FOLLOWED BY DR. CORDOVA CKD V Acute pulmonary edema Ear drum perforation High blood urea nitrogen (BUN) COVID-19 Elevated troponin End stage renal disease Pneumonia Acute kidney injury superimposed on CKD Acute CO ESRD (end stage renal disease) on dialysis Non-ST elevation CO (NSTEMI) Anemia NSTEMI (non-ST elevated myocardial infarction) Aug 2023 > cath > [facility] > no stents Atrial fibrillation pt unaware Dialysis patient [place] [facility] > M,W,F Pneumonia Sep 2023 > resolved per pt COVID-12 Oct 2023 > resolved Chronic kidney disease BPH (benign prostatic hyperplasia) Arteriovenous fistula Left AVF creation 11/2022- now has occlusion- reason for upcoming procedure History of kidney stones Glaucoma HX OF- S/P TREATMENT- NO CURRENT ISSUES Cyst of kidney, acquired Dyslipidemia Hypertension FOLLOWED BY DR. RAYO Obesity, Class II, BMI 35-39.9 Surgical History History of bilateral knee replacement History of cardiac cath Aug 2023 > cath > [facility] > no stents History of vascular access device right chest at present History of total right knee replacement H/O eye surgery RT/LEFT EYE FOR GLAUCOMA History of cataract surgery LEFT/RT History of total left knee replacement (TKR) X 2 History of lithotripsy a couple times History of tonsillectomy History of angioplasty at the age of 51 History of surgery scrotal hernia repair History of exploratory laparotomy History of umbilical hernia repair History of colonoscopy History of ear surgery Tympanic membrane repair--per pt a couple times Family History Father Cancer of kidney Hypertension Cardiac disorder Family/Other Cancer of kidney Bone cancer Mother Bone cancer Cardiac disorder Hypertension Other No family history of adverse response to anesthesia No family history of bleeding disorder Social History Smoking Status: Former smoker Tobacco Type: Cigarettes Second Hand Exposure: No; Do You Dip or Chew Tobacco: No; Hx Alcohol Use: No Hx Substance Use: No Preferred Language: German Communication Ability: Effective Visual Impairment: Limited Hearing Ability: Normal Carpenter Supervisor Required: No Beliefs That Will Affect Care: Advent Advent Beliefs: sabianist marital status: / Current Living Situation: Alone current occupational status: employed 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 How many Children do You have: 1 How many Children do You have Comment: Stepdaughter, 2 grandchildren Other Information That Helps Us Care for You: No Feels Safe at Home: Yes Safety Concerns: Feels Safe At This Time Diet: regular caffeine: Yes during the past year weight has: remained stable Dental Care, Regularly: Yes Physical Activity Frequency: 5-6 Times per Week Seatbelt Use: always Sunscreen Use: No Assistive Devices: Walker Review of Systems Constitutional: no fever Eyes: no problem reported Ear, Nose, Mouth, Throat: no problem reported Respiratory: no cough and no dyspnea Cardiovascular: no chest pain Gastrointestinal: no abdominal pain, no nausea, no vomiting and no diarrhea/loose stools Integumentary: no problem reported Physical Exam Constitutional: not in distress Breathing comfortably on O2 at 2 L/min NC Eyes: PERRL, conjunctivae normal, anicteric sclerae ENMT: external ear and nose normal, oropharynx normal Neck: trachea midline, no thyromegaly R IJ TCC w/ clean, dry dressing in place Respiratory: no respiratory distress Auscultation: + rales Cardiovascular: Rate/Rhythm: regular rate and regular rhythm Extremities: + edema (2+ pretibial pitting edema) L BC AVF + bruit. Moderate ecchymosis surrounding venous limb. Clean, dry dressing in place Gastrointestinal (Abdomen): normal bowel sounds, soft, nontender, no hepatosplenomegaly Musculoskeletal: Extremities: no cyanosis and no clubbing Neurologic: Speech / Cognition: normal speech and normal cognition Psychiatric: Affect: euthymic affect Results & Data Vital Signs (Past 12 Hours) Vital Signs Temp Pulse Pulse Resp BP BP Pulse Ox 04/05/24 07:42 36.5 C 68 16 137/75 97 04/05/24 04:13 04/05/24 04:13 36.4 C L 70 17 136/78 97 04/05/24 03:33 69 22 138/65 97 04/05/24 03:00 73 18 138/85 96 04/05/24 01:24 86 L 04/05/24 01:24 76 86 L 04/05/24 01:24 36.9 C 76 26 H 128/75 86 L 04/05/24 01:17 76 O2 Del Method O2 Flow Rate 04/05/24 07:42 Nasal Cannula 2 04/05/24 04:13 Nasal Cannula 2 04/05/24 04:13 Nasal Cannula 2 04/05/24 03:33 Nasal Cannula 2 04/05/24 03:00 Nasal Cannula 2 04/05/24 01:24 Room Air 0 04/05/24 01:24 Room Air 04/05/24 01:24 Room Air 04/05/24 01:17 Laboratory Results Laboratory Results WBC 6.61 K/ul (4.8-10.8) 04/05/24 01:21 RBC 3.42 M/uL (4.70-6.10) L 04/05/24 01:21 Hgb 10.5 g/dl (14.0-18.0) L 04/05/24 01:21 Hct 33.3 % (42.0-52.0) L 04/05/24 01:21 MCV 97.4 fL (80.0-100.0) 04/05/24 01:21 MCH 30.7 pg (25.0-34.0) 04/05/24 01:21 MCHC 31.5 g/dL (32.0-36.0) L 04/05/24 01:21 RDW Std Deviation 61.5 fL (36.4-46.3) H 04/05/24 01:21 RDW Coeff of Aysha 17.4 % (11.5-14.5) H 04/05/24 01:21 Plt Count 198 K/uL (130-400) 04/05/24 01:21 MPV 10.3 fL (9.4-12.4) 04/05/24 01:21 Immature Gran % (Auto) 0.6 % 04/05/24 01:21 Neut % (Auto) 77.6 % 04/05/24 01:21 Lymph % (Auto) 9.1 % 04/05/24 01:21 Gulf % (Auto) 9.8 % 04/05/24 01:21 Eos % (Auto) 2.4 % 04/05/24 01:21 Baso % (Auto) 0.5 % 04/05/24 01:21 Neut # (Auto) 5.13 K/uL (1.40-6.50) 04/05/24 01:21 Lymph # (Auto) 0.60 K/uL (1.20-3.40) L 04/05/24 01:21 Gulf # (Auto) 0.65 K/uL (0.11-0.59) H 04/05/24 01:21 Eos # (Auto) 0.16 K/uL (0.00-0.50) 04/05/24 01:21 Baso # (Auto) 0.03 K/uL (0.00-0.20) 04/05/24 01:21 Immature Gran # (Auto) 0.04 K/uL (0.01-0.20) 04/05/24 01:21 PT 11.5 Seconds (9.0-12.0) 04/05/24 01:21 INR 1.1 (0.9-1.1) 04/05/24 01:21 VBG pH 7.35 (7.36-7.41) L 04/05/24 01:21 VBG pCO2 49 mmHg (38-50) 04/05/24 01:21 VBG pO2 29 mmHg 04/05/24 01:21 VBG HCO3 27 mmol/L 04/05/24 01:21 VBG O2 Saturation < 60.0 % 04/05/24 01:21 VBG Base Excess 0.8 mEq/L 04/05/24 01:21 Sodium 136 mmol/L (136-145) 04/05/24 01:21 Potassium 4.8 mmol/L (3.5-5.1) 04/05/24 01:21 Chloride 100 mmol/L (98-107) 04/05/24 01:21 Carbon Dioxide 25 mmol/L (21-32) 04/05/24 01:21 Anion Gap 11 (3-11) 04/05/24 01:21 BUN 65 mg/dl (6-23) H 04/05/24 01:21 Creatinine 6.76 mg/dl (0.6-1.4) H* 04/05/24 01:21 Est Cr Clr Drug Dosing 10.4 ml/min 04/05/24 01:21 Est GFR ( Amer) 8.0 ml/min 04/05/24 01:21 Est GFR (Non-Af Amer) 6.9 ml/min 04/05/24 01:21 BUN/Creatinine Ratio 9.6 (10-20) L 04/05/24 01:21 Glucose 214 mg/dl (70-99(Fasting)) H 04/05/24 01:21 POC Glucose 176 mg/dl (70-99) H 04/05/24 07:51 Calcium 9.3 mg/dl (8.6-10.3) 04/05/24 01:21 Total Bilirubin 0.5 mg/dl (0.2-1.0) 04/05/24 01:21 AST 11 U/L (13-39) L 04/05/24 01:21 ALT 6 U/L (7-52) L 04/05/24 01:21 Alkaline Phosphatase 121 U/L (34-104) H 04/05/24 01:21 Troponin I High Sens 58.2 pg/ml (0-20) H* 04/05/24 05:35 Total Protein 7.2 gm/dl (6.0-8.3) 04/05/24 01:21 Albumin 4.0 gm/dl (3.4-5.0) 04/05/24 01:21 Globulin 3.2 gm/dl (2.5-4.0) 04/05/24 01:21 Albumin/Globulin Ratio 1.3 (0.9-2) 04/05/24 01:21 Lipase 23 U/L (11-82) 04/05/24 01:21 Nasal Screen MRSA (PCR) Positive (Negative) A 04/05/24 Unknown Impressions Chest X-Ray 04/05/24 01:12 SINGLE VIEW CHEST CLINICAL HISTORY: Dyspnea FINDINGS: 2 AP, portable, upright chest radiographs are compared to study dated 01/11/2024. A right internal jugular central venous catheter is unchanged in position. The heart is enlarged noting atherosclerotic calcification of the thoracic aorta. There is pulmonary vascular congestion. Bilateral airspace opacities likely represent interstitial edema. There are small pleural effusions with dependent consolidation. No pneumothorax is seen. The skeletal structures are osteopenic. The bony thorax is grossly intact. IMPRESSION: 1. Cardiomegaly with evidence of congestive failure. 2. Bilateral airspace opacities likely represent pulmonary edema. Correlate clinically for evidence of a superimposed infectious/inflammatory pneumonitis. Radiographic follow-up to resolution is recommended. 3. Small pleural effusions with dependent consolidation. ACT 112: Negative or not required by law. Electronically signed by: Dez Munoz M.D. 04/05/2024 6:19 AM PG Care Time/CCT Total # of Minutes Spent Total Time Spent with Patient: Total time spent is greater than 50% in coordination of care (as documented) at patient's floor/unit and/or counseling patient: Coding Level of Care Code 94664 IN/OBS CONSULT LVL 5,80M Diagnoses End stage renal disease N18.6 Dialysis AV fistula malfunction T82.590A Acute hypoxic respiratory failure J96.01 Atrial fibrillation I48.91 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
[2024-04-05] MEDS: MIDODRINE HCL 2.5 MG TAB PO SCH (09:00)
[2024-04-05] MEDS: AMIODARONE 200 MG TAB PO SCH (09:00)
[2024-04-05] MEDS ORDERED: SODIUM CHLORIDE 0.9% 1,000 ML IV PRN (09:16)
--- NOTE | 2024-04-05 10:55 | Dialysis Progress Note ---
Date of Service April 05, 2024 Assessment & Plan (1) End stage renal disease: Plan: * CHF due to missed HD treatment 04/05/24. Patient presents 4.5 kg above EDW w/ hypoxemia and CXR c/w CHF * No change to current HD Rx. UF is being adjusted according to BP and Crit- Line monitor readings * Outpatient HD Rx: 3.5hr 2K 2Ca Na 137 HCO3 35 Qb 400 F-180NR EDW 97.5 kg * PRP, CBC in am * If discharge is anticipated, have patient resume his regular outpatient HD schedule at [facility] on Sunday * Discussed importance of not missing any HD treatments w/ patient today. Advised him to consult w/ dialysis director of community life whenever disruption to schedule is anticipated so that outpatient schedule can be adjusted to accommodate him (2) Dialysis AV fistula malfunction: Plan: * L BC AVF created 07/03/23. This has been slow to mature. Fistulogram + ADMIN DIR performed 04/04/[address] Godinez * Patient still has R IJ TCC in place (3) Acute hypoxic respiratory failure: Plan: * Patient presented to EMD w/ hypoxemia 04/04/24 after missing HD treatment. CXR c/w CHF. Patient is 4.5 kg above HD EDW. He currently has no angina or infectious symptoms (4) Atrial fibrillation: Plan: * On Amiodarone and Eliquis. HR is controlled (5) Anemia: Plan: * Mild, asymptomatic anemia. Will provide CATY w/ HD today Admission and Anticipated Discharge Date Admission Date: April 05, 2024 Subjective Mr. Gaviria was evaluated during HD this morning. IJ TCC is running A-->A at Qb 300 cc/min. UF has been reduced due to relative hypotension. UF is being adjusted according to Crit-Line monitor. Patient voices no new medical concerns. Review of Systems Constitutional: no fever Eyes: no problem reported Ear, Nose, Mouth, Throat: no problem reported Respiratory: no cough and no dyspnea Cardiovascular: no chest pain Gastrointestinal: no abdominal pain, no nausea, no vomiting and no diarrhea/loose stools Integumentary: no problem reported Physical Exam Constitutional: not in distress Eyes: PERRL, conjunctivae normal, anicteric sclerae ENMT: external ear and nose normal, oropharynx normal Neck: trachea midline, no thyromegaly Respiratory: no respiratory distress Auscultation: + rales Cardiovascular: Rate/Rhythm: regular rate and regular rhythm Extremities: + edema (2+ pretibial pitting edema) Gastrointestinal (Abdomen): normal bowel sounds, soft, nontender, no hepatosplenomegaly Musculoskeletal: Extremities: no cyanosis and no clubbing Neurologic: Speech / Cognition: normal speech and normal cognition Psychiatric: Affect: euthymic affect Results & Data Vital Signs (Past 12 Hours) Vital Signs Temp Pulse Pulse Pulse Resp BP BP 04/05/24 10:02 66 103/59 L 04/05/24 09:57 36.5 C 68 04/05/24 08:00 04/05/24 07:42 36.5 C 68 16 137/75 04/05/24 04:13 04/05/24 04:13 36.4 C L 70 17 136/78 04/05/24 03:33 69 22 138/65 04/05/24 03:00 73 18 138/85 04/05/24 01:24 04/05/24 01:24 76 04/05/24 01:24 36.9 C 76 26 H 128/75 04/05/24 01:17 76 Pulse Ox O2 Del Method O2 Flow Rate 04/05/24 10:02 04/05/24 09:57 04/05/24 08:00 Nasal Cannula 2 04/05/24 07:42 97 Nasal Cannula 2 04/05/24 04:13 Nasal Cannula 2 04/05/24 04:13 97 Nasal Cannula 2 04/05/24 03:33 97 Nasal Cannula 2 04/05/24 03:00 96 Nasal Cannula 2 04/05/24 01:24 86 L Room Air 0 04/05/24 01:24 86 L Room Air 04/05/24 01:24 86 L Room Air 04/05/24 01:17 [facility] Procedure Codes (Charges) Renal/Urologic Renal/Urologic: 66231 Hemodialysis, One Evaluation Coding Level of Care Code None Diagnoses End stage renal disease N18.6 Dialysis AV fistula malfunction T82.590A Acute hypoxic respiratory failure J96.01 Atrial fibrillation I48.91 Anemia due to stage 3 chronic kidney disease N18.3; D63.1 Anemia type: due to chronic kidney disease Chronic kidney disease stage: stage 3 (moderate) CPT Codes Renal/Urologic - Renal/Urologic: 26888 Hemodialysis, One Evaluation ([id number]) (5) Anemia Anemia type: due to chronic kidney disease Chronic kidney disease stage: stage 3 (moderate) Qualified Code(s): N18.3 - Chronic kidney disease, stage 3 (moderate); D63.1 - Anemia in chronic kidney disease
--- NOTE | 2024-04-05 11:01 | Hospitalist Progress Note ---
Date of Service April 05, 2024 Assessment & Plan (1) Acute hypoxic respiratory failure: Plan: 83yo male with ESRD on HD, CAD, HTN, HLP, AF and CHF presenting with acute hypoxic respiratory failure. Patient hypoxic on arrival at 86% on room air. -Likely secondary to pulmonary congestion as seen on chest x-ray -Patient missed a session of hemodialysis on Sunday due to Scheduled fistulogram, scheduled to have a session on this morning. -Currently on 2L oxygen through nasal cannula (2) End stage renal disease: Plan: Patient with ESRD on HD q M/W/F - last HD session on 04/02/24 -Nephrology on consult, plan is for hemodialysis today -Continue Midodrine TID -Continue Renvela (3) Atrial fibrillation: Plan: Atrial fibrillation - presently in SR -Continue Amiodarone 200mg po daily -Continue Apixaban renally dosed 2.5mg po BID (4) Controlled type 2 diabetes mellitus with kidney complication, with long-term current use of insulin: Plan: Poorly controlled -Continue Lantus 10u BID -ISS, goal BS 110 - 140 (5) Dialysis AV fistula malfunction: Plan: Now resolved (6) Ischemic cardiomyopathy: (7) Hypotension: Plan F/E/N- Saline lock. Electrolytes WNL, repeat labs in AM, CC/Renal diet Ppx - Continue home Apixaban Code - DNR/DNI per discussion with patient Dispo -Hopefully discharge in the next 24 hrs Admission and Anticipated Discharge Date Admission Date: April 05, 2024 Subjective Patient seen and examined, lying down quietly, states his shortness of breath is much improved. Awaiting hemodialysis this morning Review of Systems Review of Systems: All systems reviewed are negative, apart from the ones contained in the history. Physical Exam Physical Exam: The patient is awake, alert and oriented 3, well developed and well nourished, normocephalic and atraumatic, lying in bed and in no acute distress. HEENT--PERRL, EOMI, mucous membranes and oropharynx mildly dry Neck--supple. No JVD. No bruits. Thyroid normal, trachea midline, no adenopathy. Heart--normal S1 and S2. No murmurs, rubs or gallops. Lungs--clear bilaterally, no respiratory distress, no accessory muscle use. Abdomen--normal bowel sounds and soft. Extremities--no cyanosis or clubbing. No edema. Dermatologic--normal skin turgor, normal color, no abnormal lymph nodes, no rash. Neurologic--cranial nerves II through XII grossly intact. Rheumatologic--normal range of motion. Psychiatric--normal affect. Results & Data Results & Data Vital Signs (Past 12 Hours) Vital Signs Temp Pulse Pulse Pulse Resp BP BP 04/05/24 10:02 66 103/59 L 04/05/24 09:57 97.7 F 68 04/05/24 08:00 04/05/24 07:42 97.7 F 68 16 137/75 04/05/24 04:13 04/05/24 04:13 97.5 F L 70 17 136/78 04/05/24 03:33 69 22 138/65 04/05/24 03:00 73 18 138/85 04/05/24 01:24 04/05/24 01:24 76 04/05/24 01:24 98.4 F 76 26 H 128/75 04/05/24 01:17 76 Pulse Ox O2 Del Method O2 Flow Rate 04/05/24 10:02 04/05/24 09:57 04/05/24 08:00 Nasal Cannula 2 04/05/24 07:42 97 Nasal Cannula 2 04/05/24 04:13 Nasal Cannula 2 04/05/24 04:13 97 Nasal Cannula 2 04/05/24 03:33 97 Nasal Cannula 2 04/05/24 03:00 96 Nasal Cannula 2 04/05/24 01:24 86 L Room Air 0 04/05/24 01:24 86 L Room Air 04/05/24 01:24 86 L Room Air 04/05/24 01:17 PG Care Time/CCT Total # of Minutes Spent Total Time Spent with Patient: Total time spent is greater than 50% in coordination of care (as documented) at patient's floor/unit and/or counseling patient: Coding Level of Care Code 39831 SUB INP/OBS CARE 2/35MIN Diagnoses Acute hypoxic respiratory failure J96.01 End stage renal disease N18.6 Atrial fibrillation I48.91 Controlled type 2 diabetes mellitus with kidney complication, with long-term current use of insulin E11.29; Z79.4 Dialysis AV fistula malfunction T82.590A Ischemic cardiomyopathy I25.5 Hypotension I95.9 Hypotension type: unspecified hypotension type Time Spent (min) 35 (7) Hypotension Hypotension type: unspecified hypotension type Qualified Code(s): I95.9 - Hypotension, unspecified
[2024-04-05] MEDS: EPOETIN ALFA 10,000 UNITS/ML VIAL IV ONE (11:18)
--- NOTE | 2024-04-05 11:54 | Electrocardiogram Report ---
Test Reason : Blood Pressure : / mmHG Vent. Rate : 076 BPM Atrial Rate : 076 BPM P-R Int : 224 ms QRS Dur : 126 ms QT Int : 438 ms P-R-T Axes : 081 -30 060 degrees QTc Int : 492 ms Sinus rhythm with 1st degree A-V block Left axis deviation Left ventricular hypertrophy with QRS widening ( R in aVL ) Abnormal ECG When compared with ECG of 07-JAN-2024 08:49, No significant change Confirmed by Greg Arrington ([id number]) on 04/05/2024 11:53:58 AM Referred By: REFERRED SELF Confirmed By:Greg Arrington
[2024-04-05] MEDS: FUROSEMIDE 80 MG TAB PO SCH (14:30)
--- NOTE | 2024-04-05 14:41 | Discharge Summary ---
Date of Service April 05, 2024 Admission HPI Per Admitting Provider Davin Gaviria is an 83yo male with history of ESRD on HD M/W/F, CAD, HTN, HLP and AF on Eliquis anticoagulation presenting from home with acute shortness of breath and acute hypoxic respiratory failure. Patient had a fistulogram performed yesterday 04/04/24 which went well. He did not have HD yesterday. This evening he presents with shortness of breath. He got up at home to use the bathroom around 12:00 after which he was very short of breath. He denies chest pain, palpitations, abdominal pain, nausea, vomiting or diarrhea. He has a cough productive for mucus - unable to say if purulent or bloody. No report of fever or chills. Patient hypoxic on arrival at 86% on room air. He was placed on NC - currently saturating well at 96% on 2L Principal Diagnosis Pulmonary edema Discharge Exam The patient is awake, alert and oriented 3, well developed and well nourished, normocephalic and atraumatic, lying in bed and in no acute distress. HEENT--PERRL, EOMI, mucous membranes and oropharynx mildly dry Neck--supple. No JVD. No bruits. Thyroid normal, trachea midline, no adenopathy. Heart--normal S1 and S2. No murmurs, rubs or gallops. Lungs--clear bilaterally, no respiratory distress, no accessory muscle use. Abdomen--normal bowel sounds and soft. Extremities--no cyanosis or clubbing. No edema. Dermatologic--normal skin turgor, normal color, no abnormal lymph nodes, no rash. Neurologic--cranial nerves II through XII grossly intact. Rheumatologic--normal range of motion. Psychiatric--normal affect. Discharge Data Allergies Allergy/AdvReac Type Severity Reaction Status Date / Time latex Allergy Mild SKIN Verified 04/05/24 01:51 IRRITATION Consultations 04/05/24 02:48 ED Decision to Admit Stat 04/05/24 03:12 Consult Nephrology Routine Hospital Course (1) Acute hypoxic respiratory failure: 83yo male with ESRD on HD, CAD, HTN, HLP, AF and CHF presenting with acute hypoxic respiratory failure. Patient hypoxic on arrival at 86% on room air. -Likely secondary to pulmonary congestion as seen on chest x-ray -Patient missed a session of hemodialysis on Sunday due to Scheduled fistul korey, scheduled to have a session on this morning. -Currently on 2L oxygen through nasal cannula -Feeling much better following hemodialysis (2) End stage renal disease: Patient with ESRD on HD q M/W/F - last HD session on 04/02/24 -Nephrology on consult, plan is for hemodialysis today -Continue Midodrine TID -Continue Renvela (3) Atrial fibrillation: Atrial fibrillation - presently in SR -Continue Amiodarone 200mg po daily -Continue Apixaban renally dosed 2.5mg po BID (4) Controlled type 2 diabetes mellitus with kidney complication, with long-term current use of insulin: Poorly controlled -Continue Lantus 10u BID -ISS, goal BS 110 - 140 (5) Dialysis AV fistula malfunction: Now resolved (6) Ischemic cardiomyopathy: (7) Hypotension: Plan F/E/N- Saline lock. Electrolytes WNL, repeat labs in AM, CC/Renal diet Ppx - Continue home Apixaban Code - DNR/DNI per discussion with patient Dispo -Discharge back to [facility] Total Time Total Time Spent Total Time Spent (In Minutes): 35 Discharge Plan Discharge Items Patient Disposition: Transfer Care Home Fac Reason For Visit: ACUTE HYPOXIC RESPIRATORY FAILURE Discharge Diagnosis: Pulmonary edema Activity: Resume your previous activity Non-emergency contact: Primary Care Provider Call non-emergency contact if: you have any medication questions Follow-up/Referrals: Orly Dickson MD [Primary Care Provider] - Diet: Dialysis Renal Addtl Attending Provider Instructions: Please make appointment to follow-up with her regular doctors, [facility] PCP Pending Studies at Discharge: No Stand-Alone Forms: My [facility] Skilled Items Patient informed of condition?: Yes DNR: Yes Discharge Level of Care: Skilled Communicable Disease: No Discharge Prognosis: Stable Lines: None Urinary Catheter: No Medications and DC Order Prescriptions: Continued (DME) BD SafetyGlide Insulin Syringe 0.3 mL 31 gauge x 15/64" syringe MISCELLANEOUS Qty: 700 3RF Rx Instructions: Use 7 times daily (DME) pen needle, diabetic [BD Ultra-Fine Mini Pen Needle] 31 gauge x 3/16" needle See Rx Instructions .ROUTE .COMPLEX Qty: 100 11RF Dose Instruction: USE FOR INSULIN INJECTION NEEDED Rx Instructions: USE FOR INSULIN INJECTION NEEDED amiodarone 200 mg tablet 200 mg PO DAILY Qty: 90 3RF Dose Instruction: 1 TAB BY MOUTH EVERY DAY pantoprazole 40 mg tablet,delayed release (DR/EC) 40 mg PO DAILYBB Qty: 90 3RF Rx Instructions: 1 TAB BY MOUTH EVERY MORNING *DO NOT CRUSH* Novolin R FlexPen 100 unit/mL (3 mL) insulin pen See Rx Instructions .ROUTE .COMPLEX MDD 30 units Qty: 15 11RF Hold Instructions: To restart? Dose Instruction: SLIDING SCALE: (ROTATE SITES) FOUR TIMES DAILY SUBQ 141-175=1UNIT; 176-210 =2UNITS; 211-245=3UNITS; 246-280=4UNITS; 246-280=4UNITS; 281-315=5UNITS; 316- 350=6UNITS Rx Instructions: Novolin-R 3 units with breakfast; 6 units with lunch; 8 units with dinner + sliding scale (<141: 0 units, 141-175: 1 unit, 176-210: 2 units, 211-245: 3 units, 246-280: 4 units, 281-315: 5 units, etc.) multivitamin Tablet 1 tab PO DAILY Qty: 90 3RF Hold Instructions: restart? levothyroxine 50 mcg tablet 50 mcg PO DAILYBB Qty: 90 1RF Rx Instructions: 1 TAB BY MOUTH EVERY MORNING TAKE ON AN EMPTY STOMACH WITH A FULL GLASS OF WATER WAIT 30 MINUTES TO EAT, DRINK OR TAKE MEDICATIONS atorvastatin 80 mg tablet 80 mg PO QAM Qty: 90 3RF clopidogrel 75 mg tablet 75 mg PO DAILY Qty: 90 3RF furosemide 80 mg tablet 80 mg PO QAM Qty: 30 3RF insulin glargine [Basaglar KwikPen U-100 Insulin] 100 unit/mL (3 mL) insulin pen 10 unit subcut BID fluticasone propionate 50 mcg/actuation spray,suspension 1 spray intranasal BID Qty: 16 11RF tramadol 50 mg tablet 50 mg PO Q12H PRN (Reason: pain) Qty: 60 5RF (DME) FreeStyle Ritchie 14 Day Sensor Kit MISCELLANEOUS (DME) FreeStyle Ritchie 14 Day [place]arrison Misc MISCELLANEOUS amoxicillin 500 mg capsule 2,000 mg PO DIRECTED PRN (Reason: 1 HR PRIOR TO DENTAL PROCEDURES) docusate sodium 100 mg tablet 200 mg PO HS acetaminophen 325 mg tablet 325 mg PO Q4H PRN (Reason: Pain, Mild) midodrine 2.5 mg tablet 2.5 mg PO TIDM sevelamer carbonate 800 mg tablet 800 mg PO TIDM Rx Instructions: 1 TAB BY MOUTH THREE TIMES DAILY WITH MEALS Eliquis 2.5 mg tablet 2.5 mg PO Q12H metoprolol succinate 50 mg tablet extended release 24 hr 75 mg PO HS Rx Instructions: 1.5 TABS BY MOUTH AT BEDTIME quetiapine [Seroquel] 25 mg tablet 25 mg PO HS Discharge Orders: Discharge Order (Routine); Ordered 04/05/24 Ordered By: Roxann Barrett Admission Data Admit Date/Time: 04/05/24 03:13 Attending Provider: Roxann Barrett Admit Provider: Cheryl Cruz Primary Care Provider: Orly Dickson V. Other Providers: Dany Cid; Cheryl Cruz Coding Level of Care Code 35002 INP/OBS DISCH >30 MIN Diagnoses Acute hypoxic respiratory failure J96.01 End stage renal disease N18.6 Atrial fibrillation I48.91 Controlled type 2 diabetes mellitus with kidney complication, with long-term current use of insulin E11.29; Z79.4 Dialysis AV fistula malfunction T82.590A Ischemic cardiomyopathy I25.5 Hypotension I95.9 Hypotension type: unspecified hypotension type Time Spent (min) 35
[2024-04-05] MEDS ORDERED: DOCUSATE SODIUM 100 MG CAP PO SCH (21:00)
[2024-04-05] MEDS ORDERED: QUEtiapine FUMARATE 25 MG TABLET PO SCH (21:00)
[2024-04-05] MEDS ORDERED: METOPROLOL SUCC 25MG EXT REL TAB PO SCH (21:00)
== END 2024-04-05 16:35 | disposition home or self-care (01) | DRG 291 ==
LOC: ED 01:05 → SUATTDRO 03:13 → OBSVTOIN 03:13 → INTOOBSV 03:13 → 3E 03:13

== ENCOUNTER 2024-04-20 17:43 | Inpatient (IN) ==
[2024-04-20] MEDS: NITROGLYCERIN SL 0.4 MG/TAB TAB ONE (17:50)
[2024-04-20] MEDS: NITROGLYCERIN SL 0.4 MG/TAB TAB SL STA (18:02)
[2024-04-20 18:04] LABS: Basophils # (auto) 0.05 K/uL (0.00-0.20); Basophils % (auto) 0.5 %; Eosinophils # (auto) 0.19 K/uL (0.00-0.50); Eosinophils % (auto) 1.9 %; Hematocrit (blood only) 39.2 % (42.0-52.0); Hemoglobin 11.9 g/dl (14.0-18.0); Immature Granulocytes # (auto) 0.06 K/uL (0.01-0.20); Immature Granulocytes % (auto) 0.6 %; Lymphocytes # (auto) 2.28 K/uL (1.20-3.40); Lymphocytes % (auto) 22.6 %; Mean Corpuscular Hemoglobin 30.4 pg (25.0-34.0); Mean Corpuscular Hgb Conc 30.4 g/dL (32.0-36.0); Mean Platelet Volume 10.8 fL (9.4-12.4); Monocytes # (auto) 0.88 K/uL (0.11-0.59); Monocytes % (auto) 8.7 %; Neutrophils # (auto) 6.65 K/uL (1.40-6.50); Neutrophils % (auto) 65.7 %; Platelet Count 266 K/uL (130-400); RDW Coefficient of Variation 16.8 % (11.5-14.5); RDW Standard Deviation 61.5 fL (36.4-46.3); Red Blood Count 3.92 M/uL (4.70-6.10); White Blood Count 10.11 K/ul (4.8-10.8)
[2024-04-20 18:08] LABS: iSTAT Creatinine 6.4 mg/dl (0.6-1.3); iSTAT Hemoglobin 13.6 g/dl (14.0-18.0); iSTAT Ionized Calcium 1.18 mmol/l (1.12-1.32); iSTAT Potassium 4.1 mmol/L (3.3-5.0)
[2024-04-20 18:11] LABS: iSTAT Arterial Blood Gas HCO3 24 meg/L (19-24); iSTAT Arterial Blood Gas pCO2 55 mmHg (35-46); iSTAT Arterial Blood Gas pH 7.25 (7.35-7.45); iSTAT Arterial Blood Gas pO2 91 mmHg (80-95); iSTAT Carbon Dioxide 26 mmol/L (24-31); iSTAT Hematocrit 37 % (42-52); iSTAT Hemoglobin 12.6 g/dl (14.0-18.0); iSTAT Potassium 4.5 mmol/L (3.3-5.0); iSTAT Sodium 135 mmol/L (135-144)
--- NOTE | 2024-04-20 18:15 | XRay Report ---
XR chest 1V portable HISTORY: 83 years-old Male sob acute shortness of breath COMPARISON: 04/05/2024 TECHNIQUE: AP view of the chest FINDINGS: Cardiac silhouette is enlarged. Stable positioning of the dual lumen right IJ hemodialysis catheter. No pneumothorax. Mixed interstitial and alveolar opacities have progressed with persistent bilateral pleural effusions and bibasilar consolidation. Bones appear intact. IMPRESSION: 1. Cardiomegaly with progressive pulmonary edema. 2. Layering pleural effusions with persistent bibasilar consolidation. ACT 112: Negative or not required by law. The above report was generated using voice recognition software. It may contain grammatical, syntax o r spelling errors. Electronically signed by: Gary Linton M.D. 04/20/2024 6:14 PM
--- NOTE | 2024-04-20 18:25 | Emergency Department Note ---
History of Present Illness General Chief Complaint: Respiratory Distress Time Seen by Provider: 04/20/24 17:46 History of Present Illness Provider Complaint: shortness of breath Onset (ago): hour(s) (2) Severity: similar to previous episodes Consistency/Duration: + progressively worsening Relieved By: + oxygen and + upright position Exacerbated By: + lying flat and + exertion Associated symptoms: + cough, + orthopnea and + chest congestion Treatment prior to arrival: bronchodilator and NIPPV HPI Narrative: End-stage renal disease Sunday patient reports he got a full session of dialysis on Sunday. No fevers. No cough. No chest pain. Related Data Home oxygen amount: none Home Medications Medication Instructions Recorded Confirmed Type flash glucose scanning reader 07/19/20 04/03/24 History (PowerPracticalStyle Ritchie 14 Day Harned) flash glucose sensor (FreeStyle 07/19/20 04/03/24 History Ritchie 14 Day Sensor kit) insulin syringe,safetyneedle 0.3 #700 ea 01/15/23 04/03/24 Rx mL 31 gauge x 15/64" (BD SafetyGlide Insulin Syringe) amoxicillin 500 mg capsule 2,000 mg PO DIRECTED PRN 1 HR 01/01/24 04/05/24 History PRIOR TO DENTAL PROCEDURES docusate sodium 100 mg tablet 200 mg PO HS 01/01/24 04/05/24 History metoprolol succinate 50 mg 75 mg PO HS 01/06/24 04/05/24 History tablet,extended release 24 hr furosemide 80 mg tablet 80 mg PO QAM #30 tabs 01/24/24 04/05/24 Rx insulin glargine 100 unit/mL (3 10 unit subcut BID 01/24/24 04/05/24 History mL) subcutaneous pen (Basaglar KwikPen U-100 Insulin) amiodarone 200 mg tablet 200 mg PO DAILY #90 tabs 02/15/24 04/05/24 Rx atorvastatin 80 mg tablet 80 mg PO QAM #90 tabs 02/26/24 04/05/24 Rx clopidogrel 75 mg tablet 75 mg PO DAILY #90 tabs 02/26/24 04/05/24 Rx pantoprazole 40 mg tablet,delayed 40 mg PO DAILYBB #90 tabs 03/04/24 04/05/24 Rx release insulin regular human 100 unit/mL See Rx Instructions .Route 03/12/24 04/05/24 Rx (3 mL) subcutaneous pen (Novolin R .COMPLEX #15 mL FlexPen) fluticasone propionate 50 1 spray intranasal BID #16 grams 04/03/24 04/05/24 Rx mcg/actuation nasal spray,suspension levothyroxine 50 mcg tablet 50 mcg PO DAILYBB #90 tabs 04/03/24 04/05/24 Rx multivitamin 1 tab PO DAILY #90 tabs 04/03/24 04/05/24 Rx tramadol 50 mg tablet 50 mg PO Q12H PRN pain #60 tabs 04/03/24 04/05/24 Rx quetiapine 25 mg tablet (Seroquel) 25 mg PO HS 04/04/24 04/05/24 History acetaminophen 325 mg tablet 325 mg PO Q4H PRN Pain, Mild 04/05/24 04/05/24 History apixaban 2.5 mg tablet (Eliquis) 2.5 mg PO Q12H 04/05/24 04/05/24 History sevelamer carbonate 800 mg tablet 800 mg PO TIDM 04/05/24 04/05/24 History triamcinolone acetonide 0.1 % 1 applic topical BID itching #80 04/07/24 Rx topical cream grams midodrine 2.5 mg tablet 2.5 mg PO TIDM #270 tabs 04/08/24 Rx pen needle, diabetic 31 gauge x #100 ea 04/15/24 Rx 3/16" (BD Ultra-Fine Mini Pen Needle) Allergies Allergy/AdvReac Type Severity Reaction Status Date / Time latex Allergy Mild SKIN Verified 04/05/24 01:51 IRRITATION Past Med/Surg History Problem List (Updated 04/20/24 @ 18:40 by Shahab Mo MD) Fluid overload (Acute) End stage renal disease (Acute) Hypoxia (Acute) Acute hypoxic respiratory failure Dialysis AV fistula malfunction Physical deconditioning Ischemic cardiomyopathy (Acute) CAD (coronary artery disease) Hypotension (Acute) NSTEMI (non-ST elevated myocardial infarction) CKD (chronic kidney disease), stage V Dialysis AV fistula malfunction CKD (chronic kidney disease), stage IV Sleep disturbance Health care maintenance Hyperparathyroidism (Chronic) ASCVD (arteriosclerotic cardiovascular disease) Allergic rhinitis Mixed conductive and sensorineural hearing loss of right ear with restricted hearing of left ear Back pain Chronic otitis media of right ear with perforated tympanic membrane (Chronic) Generalized osteoarthritis Nephrolithiasis Coronary arteriosclerosis (Chronic) S/p angioplasty 1990 (no stent or hx of CABG) Sensorineural hearing loss (SNHL) of both ears No hearing aids Hypothyroidism (Chronic) Controlled type 2 diabetes mellitus with kidney complication, with long-term current use of insulin (Chronic) Hgb A1C 09/2022 was 7.7 BPH with obstruction/lower urinary tract symptoms Medical History Hemodialysis catheter malfunction Accelerated hypertension Acute hypoxemic respiratory failure Uremia Atrial fibrillation with rapid ventricular response High anion gap metabolic acidosis Cardiomyopathy Acute combined systolic and diastolic CHF, NYHA class 3 Shortness of breath Elevated troponin Closed head injury Acute lactic acidosis Acute hypoxemic respiratory failure Acute pulmonary edema Murmur Skin tear of left forearm without complication Skin tear of left elbow without complication Obesity Chronic renal insufficiency FOLLOWED BY DR. CORDOVA CKD V Acute pulmonary edema Ear drum perforation High blood urea nitrogen (BUN) COVID-19 Elevated troponin Pneumonia Acute kidney injury superimposed on CKD Acute NM ESRD (end stage renal disease) on dialysis Non-ST elevation NM (NSTEMI) Anemia NSTEMI (non-ST elevated myocardial infarction) Aug 2023 > cath > [facility] > no stents Atrial fibrillation pt unaware Dialysis patient [place] on [facility] > M,W,F Pneumonia Sep 2023 > resolved per pt COVID-12 Oct 2023 > resolved Chronic kidney disease BPH (benign prostatic hyperplasia) Arteriovenous fistula Left AVF creation 11/2022- now has occlusion- reason for upcoming procedure History of kidney stones Glaucoma HX OF- S/P TREATMENT- NO CURRENT ISSUES Cyst of kidney, acquired Dyslipidemia Hypertension FOLLOWED BY DR. RAYO Obesity, Class II, BMI 35-39.9 Surgical History History of bilateral knee replacement History of cardiac cath Aug 2023 > cath > [facility] > no stents History of vascular access device right chest at present History of total right knee replacement H/O eye surgery RT/LEFT EYE FOR GLAUCOMA History of cataract surgery LEFT/RT History of total left knee replacement (TKR) X 2 History of lithotripsy a couple times History of tonsillectomy History of angioplasty at the age of 51 History of surgery scrotal hernia repair History of exploratory laparotomy History of umbilical hernia repair History of colonoscopy History of ear surgery Tympanic membrane repair--per pt a couple times Family History Father Cancer of kidney Hypertension Cardiac disorder Family/Other Cancer of kidney Bone cancer Mother Bone cancer Cardiac disorder Hypertension Other No family history of adverse response to anesthesia No family history of bleeding disorder Social History Smoking Status: Unknown if ever smoked Tobacco Type: Cigarettes Second Hand Exposure: No; Do You Dip or Chew Tobacco: No; Hx Alcohol Use: No Hx Substance Use: No Preferred Language: Korean Communication Ability: Effective Visual Impairment: Limited Hearing Ability: Normal High Lift Operator Required: No Beliefs That Will Affect Care: Mandaen Mandaen Beliefs: judaism marital status: / Current Living Situation: Alone current occupational status: employed 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 How many Children do You have: 1 How many Children do You have Comment: Stepdaughter, 2 grandchildren Feels Safe at Home: Yes Diet: regular caffeine: Yes during the past year weight has: remained stable Dental Care, Regularly: Yes Physical Activity Frequency: 5-6 Times per Week Seatbelt Use: always Sunscreen Use: No Assistive Devices: Walker Physical Exam 2 Vital Signs: Vital Signs - 24 hr 04/20/24 17:44 04/20/24 17:44 04/20/24 17:44 Pulse Rate 88 86 Pulse Rate [Right Finger] Pulse Rate from Sp O2 Sensor Respiratory Rate 12 30 H Respiratory Effort / Characteristics Spontaneous Spontaneous Labore d Other Respiratory Depth Respiratory Patter n Irregular Blood Pressure 233/123 H Blood Pressure [Ri ght Arm] Blood Pressure Shaneka n 159 Blood Pressure Shaneka n [Right Arm] Pulse Oximetry Oxygen Delivery Me thod CPAP Room Air CPAP Fraction of Inspir ed Oxygen SaO2/FiO2 Ratio Sepsis Recent Feve r Within 48 Hours No Sepsis New/Unexpla ined Change in Men maliha Status N/A Sepsis Action Take n by Nursing No Action Required Pulse Oximetry Pos t Tiitration 04/20/24 17:51 04/20/24 17:55 04/20/24 17:58 Pulse Rate 73 Pulse Rate [Right Finger] 80 Pulse Rate from Sp O2 Sensor Respiratory Rate 29 H 20 Respiratory Effort / Characteristics Spontaneous Access ory Muscle Use Lab ored Non-Labored Sponta neous Respiratory Depth Deep Normal Respiratory Patter n Tachypnea Regular Blood Pressure Blood Pressure [Ri ght Arm] 149/94 H Blood Pressure Shaneka n Blood Pressure Shaneka n [Right Arm] 112 Pulse Oximetry 82 L 96 97 Oxygen Delivery Me thod BiPAP BiPAP Fraction of Inspir ed Oxygen 100 SaO2/FiO2 Ratio Sepsis Recent Feve r Within 48 Hours Sepsis New/Unexpla ined Change in Men maliha Status Sepsis Action Take n by Nursing Pulse Oximetry Pos t Tiitration 95 04/20/24 18:00 04/20/24 18:10 04/20/24 18:13 Pulse Rate Pulse Rate [Right Finger] 76 72 Pulse Rate from Sp O2 Sensor Respiratory Rate 21 26 H Respiratory Effort / Characteristics Non-Labored Sponta neous Non-Labored Sponta neous Respiratory Depth Normal Normal Respiratory Patter n Blood Pressure Blood Pressure [Ri ght Arm] 152/78 H 142/87 H Blood Pressure Shaneka n Blood Pressure Shaneka n [Right Arm] 102 105 Pulse Oximetry 97 98 Oxygen Delivery Me thod BiPAP BiPAP Fraction of Inspir ed Oxygen 100 100 90 SaO2/FiO2 Ratio 97 98 Sepsis Recent Feve r Within 48 Hours Sepsis New/Unexpla ined Change in Men maliha Status Sepsis Action Take n by Nursing Pulse Oximetry Pos t Tiitration 04/20/24 18:13 04/20/24 18:15 04/20/24 18:22 Pulse Rate 70 Pulse Rate [Right Finger] 82 Pulse Rate from Sp O2 Sensor Respiratory Rate 26 H Respiratory Effort / Characteristics Non-Labored Sponta neous Non-Labored Sponta neous Respiratory Depth Normal Respiratory Patter n Regular Regular Blood Pressure Blood Pressure [Ri ght Arm] 129/79 Blood Pressure Shaneka n Blood Pressure Shaneka n [Right Arm] 95 Pulse Oximetry 99 Oxygen Delivery Me thod BiPAP BiPAP Fraction of Inspir ed Oxygen 100 100 SaO2/FiO2 Ratio 99 Sepsis Recent Feve r Within 48 Hours Sepsis New/Unexpla ined Change in Men maliha Status Sepsis Action Take n by Nursing Pulse Oximetry Pos t Tiitration 04/20/24 18:36 04/20/24 19:00 04/20/24 19:04 Pulse Rate Pulse Rate [Right Finger] 76 78 Pulse Rate from Sp O2 Sensor Respiratory Rate 20 22 Respiratory Effort / Characteristics Non-Labored Sponta neous Non-Labored Sponta neous Respiratory Depth Normal Normal Respiratory Patter n Blood Pressure 124/74 Blood Pressure [Ri ght Arm] 119/69 131/76 Blood Pressure Shaneka n 84 Blood Pressure Shaneka n [Right Arm] 85 94 Pulse Oximetry 100 100 Oxygen Delivery Me thod BiPAP BiPAP Fraction of Inspir ed Oxygen 100 100 SaO2/FiO2 Ratio 100 100 Sepsis Recent Feve r Within 48 Hours Sepsis New/Unexpla ined Change in Men maliha Status Sepsis Action Take n by Nursing Pulse Oximetry Pos t Tiitration 04/20/24 19:21 04/20/24 19:27 04/20/24 19:30 Pulse Rate 77 74 Pulse Rate [Right Finger] Pulse Rate from Sp O2 Sensor 77 73 Respiratory Rate 20 23 Respiratory Effort / Characteristics Respiratory Depth Respiratory Patter n Blood Pressure 109/65 Blood Pressure [Ri ght Arm] Blood Pressure Shaneka n 88 Blood Pressure Shaneka n [Right Arm] Pulse Oximetry 99 100 Oxygen Delivery Me thod BiPAP Fraction of Inspir ed Oxygen 100 SaO2/FiO2 Ratio Sepsis Recent Feve r Within 48 Hours Sepsis New/Unexpla ined Change in Men maliha Status Sepsis Action Take n by Nursing Pulse Oximetry Pos t Tiitration 04/20/24 19:54 04/20/24 20:00 Pulse Rate 71 65 Pulse Rate [Right Finger] Pulse Rate from Sp O2 Sensor 71 Respiratory Rate 18 16 Respiratory Effort / Characteristics Respiratory Depth Respiratory Patter n Blood Pressure 126/75 Blood Pressure [Ri ght Arm] Blood Pressure Shaneka n 100 Blood Pressure Shaneka n [Right Arm] Pulse Oximetry 100 100 Oxygen Delivery Me thod Fraction of Inspir ed Oxygen SaO2/FiO2 Ratio Sepsis Recent Feve r Within 48 Hours Sepsis New/Unexpla ined Change in Men maliha Status Sepsis Action Take n by Nursing Pulse Oximetry Pos t Tiitration Physical Exam: Physical Exam GENERAL: Respiratory distress. HENT: Exam performed. - Head: Normocephalic and atraumatic. - Right Ear: External ear normal. No mastoid erythema - Left Ear: External ear normal. No mastoid erythema - Mouth/Throat: The oropharynx is clear and moist. No trismus in the jaw. No dental abscesses or uvula swelling. No oropharyngeal exudate or tonsillar abscesses. EYES: Conjunctivae and EOM are normal. Pupils are equal, round, and reactive to light. Right eye exhibits no discharge. Left eye exhibits no discharge. No scleral icterus. NECK: Normal range of motion. Neck supple. No JVD present. CV: Normal rate, regular rhythm, normal heart sounds and intact distal pulses. There is no peripheral edema. Palpable radial pulses bue. PULM/CHEST: Tachypneic. Retractions. Rales bilaterally. Diminished breath sounds bilaterally. Permacath in the patient's right chest. ABD: The abdomen is soft. MUSC/SKEL: Left upper extremity AV fistula does not have a palpable thrill or bruit. NEURO: Motor and sensation grossly intact. Course Course 1745: The patient was evaluated in room A1. A complete history and physical exam was performed Cardiac monitoring: An order was placed for continuous cardiac monitoring. The monitor shows a rate of 80 with sinus rhythm interpreted by me Patient transitioned to BiPAP. Patient is very hypertensive thought that the patient is fluid overloaded. 0.4 sublingual nitroglycerin ordered for the patient. 1836: Vital signs improved. Patient reports his breathing is better with BiPAP. Patient is no longer having labored breathing no longer retractions. Chest x- ray does show fluid overloaded. Labs show an elevated creatinine normal potassium BUN is in the 50s. Patient will be admitted to the [facility] Hospitalist team. Discussed case with Dr. Jimenez who will evaluate the patient. He recommends given the patient's 80 mg of Lasix this patient states he still does make urine. Administered Medications Discontinued Medications Furosemide (Furosemide 40 Mg/4 Ml Vial) 80 mg IV ONE ONE Stop: 04/20/24 18:32 Last Admin: 04/20/24 18:52 Dose: 80 mg Documented By: KIA Insulin Human Regular 6 units/ (Syringe) 6 mls @ 30 mls/min IV NOW ONE Stop: 04/20/24 18:46 Last Admin: 04/20/24 18:51 Dose: 30 mls/min Documented By: KIA Co-signed By: WALTER Insulin Human Regular (Novolin-R Insulin Per Unit Charge) Confirm Administered Dose 6 units .ROUTE .STK-MED ONE Stop: 04/20/24 18:51 Last Admin: 04/20/24 18:58 Dose: Not Given Documented By: KIA Nitroglycerin (Nitroglycerin Sl 0.4 Mg/Tab Tab) 0.4 mg SL NOW STA Stop: 04/20/24 17:47 Last Admin: 04/20/24 18:02 Dose: Not Given Documented By: NRB Nitroglycerin (Nitroglycerin Sl 0.4 Mg/Tab Tab) Confirm Administered Dose 0.4 mg .ROUTE .STK-MED ONE Stop: 04/20/24 17:50 Last Admin: 04/20/24 17:50 Dose: 0.4 mg Documented By: KIA Medical Decision Making Laboratory Data Attestation: I reviewed the patient's lab results. 04/20/24 17:50 04/20/24 17:50 Lab Results 04/20/24 04/20/24 04/20/24 Range/Units 17:50 17:55 17:58 WBC 10.11 (4.8-10.8) K/ul RBC 3.92 L (4.70-6.10) M/uL Hgb 11.9 L (14.0-18.0) g/dl POC Hgb 13.6 L 12.6 L (14.0-18.0) g/dl Hct 39.2 L (42.0-52.0) % POC Hct 40 L 37 L (42-52) % MCV 100.0 (80.0-100.0) fL MCH 30.4 (25.0-34.0) pg MCHC 30.4 L (32.0-36.0) g/dL RDW Std Deviation 61.5 H (36.4-46.3) fL RDW Coeff of Aysha 16.8 H (11.5-14.5) % Plt Count 266 (130-400) K/uL MPV 10.8 (9.4-12.4) fL Immature Gran % (Auto) 0.6 % Neut % (Auto) 65.7 % Lymph % (Auto) 22.6 % Oldham % (Auto) 8.7 % Eos % (Auto) 1.9 % Baso % (Auto) 0.5 % Neut # (Auto) 6.65 H (1.40-6.50) K/uL Lymph # (Auto) 2.28 (1.20-3.40) K/uL Oldham # (Auto) 0.88 H (0.11-0.59) K/uL Eos # (Auto) 0.19 (0.00-0.50) K/uL Baso # (Auto) 0.05 (0.00-0.20) K/uL Immature Gran # (Auto) 0.06 (0.01-0.20) K/uL POC pH 7.25 L (7.35-7.45) POC pCO2 55 H (35-46) mmHg POC pO2 91 (80-95) mmHg POC HCO3 24 (19-24) prema/L POC Base Excess -3.0 (-9-1.8) prema/L ABG pH (7.35-7.45) ABG pCO2 (35-46) mmHg ABG pO2 (80-95) mmHg ABG HCO3 (19-24) mmol/L POC ABG O2 Sat 95.0 (90-95) % ABG O2 Saturation (90-95) % ABG Base Excess (-9-1.8) mEq/L Aniket Test (Pos) Oxygen Given POC Sodium 137 135 (135-144) mmol/L Sodium 134 L (136-145) mmol/L POC Potassium 4.1 4.5 (3.3-5.0) mmol/L Potassium 4.1 (3.5-5.1) mmol/L POC Chloride 98 L (101-112) mmol/L Chloride 96 L (98-107) mmol/L Carbon Dioxide 26 (21-32) mmol/L POC Total CO2 26 26 (24-31) mmol/L Anion Gap 12 H (3-11) POC Anion Gap 18.0 (16-25) mmol/L POC BUN 48 H (7-18) mg/dl BUN 51 H (6-23) mg/dl Creatinine 5.70 H* (0.6-1.4) mg/dl POC Creatinine 6.4 H* (0.6-1.3) mg/dl Est Cr Clr Drug Dosing Not Reportable Est GFR ( Amer) 9.9 ml/min Est GFR (Non-Af Amer) 8.5 ml/min BUN/Creatinine Ratio 8.9 L (10-20) Glucose 405 H* (70-99(Fasting)) mg/dl POC Glucose (other) 386 H* (70-99) mg/dl Calcium 9.7 (8.6-10.3) mg/dl POC Ioniz Calcium Ivelisse 1.18 (1.12-1.32) mmol/l Troponin I High Sens 44.7 H (0-20) pg/ml Adenovirus (PCR) (NotDetected) B. pertussis DNA (PCR) (NotDetected) B.parapertussis DNA PCR (NotDetected) C. pneumoniae DNA (PCR) (NotDetected) Coronavirus OC43 (PCR) (NotDetected) Coronavirus HKU1 (PCR) (NotDetected) Coronavirus 229E (PCR) (NotDetected) SARS-CoV-2 (PCR) (NotDetected) Coronavirus NL63 (PCR) (NotDetected) Human Metapneumovir PCR (NotDetected) Influenza Type A (PCR) (NotDetected) Influenza Type B (PCR) (NotDetected) M. pneumoniae (PCR) (NotDetected) Parainfluenza 1 (PCR) (NotDetected) Parainfluenza 2 (PCR) (NotDetected) Parainfluenza 3 (PCR) (NotDetected) Parainfluenza 4 (PCR) (NotDetected) RSV (PCR) (NotDetected) Entero/Rhino (PCR) (NotDetected) 04/20/24 04/20/24 Range/Units 18:22 19:00 WBC (4.8-10.8) K/ul RBC (4.70-6.10) M/uL Hgb (14.0-18.0) g/dl POC Hgb (14.0-18.0) g/dl Hct (42.0-52.0) % POC Hct (42-52) % MCV (80.0-100.0) fL MCH (25.0-34.0) pg MCHC (32.0-36.0) g/dL RDW Std Deviation (36.4-46.3) fL RDW Coeff of Aysha (11.5-14.5) % Plt Count (130-400) K/uL MPV (9.4-12.4) fL Immature Gran % (Auto) % Neut % (Auto) % Lymph % (Auto) % Oldham % (Auto) % Eos % (Auto) % Baso % (Auto) % Neut # (Auto) (1.40-6.50) K/uL Lymph # (Auto) (1.20-3.40) K/uL Oldham # (Auto) (0.11-0.59) K/uL Eos # (Auto) (0.00-0.50) K/uL Baso # (Auto) (0.00-0.20) K/uL Immature Gran # (Auto) (0.01-0.20) K/uL POC pH (7.35-7.45) POC pCO2 (35-46) mmHg POC pO2 (80-95) mmHg POC HCO3 (19-24) prema/L POC Base Excess (-9-1.8) prema/L ABG pH 7.34 L (7.35-7.45) ABG pCO2 45 (35-46) mmHg ABG pO2 155 H (80-95) mmHg ABG HCO3 24 (19-24) mmol/L POC ABG O2 Sat (90-95) % ABG O2 Saturation 98.4 H (90-95) % ABG Base Excess -1.7 (-9-1.8) mEq/L Aniket Test Pos (Pos) Oxygen Given 90% POC Sodium (135-144) mmol/L Sodium (136-145) mmol/L POC Potassium (3.3-5.0) mmol/L Potassium (3.5-5.1) mmol/L POC Chloride (101-112) mmol/L Chloride (98-107) mmol/L Carbon Dioxide (21-32) mmol/L POC Total CO2 (24-31) mmol/L Anion Gap (3-11) POC Anion Gap (16-25) mmol/L POC BUN (7-18) mg/dl BUN (6-23) mg/dl Creatinine (0.6-1.4) mg/dl POC Creatinine (0.6-1.3) mg/dl Est Cr Clr Drug Dosing Est GFR ( Amer) ml/min Est GFR (Non-Af Amer) ml/min BUN/Creatinine Ratio (10-20) Glucose (70-99(Fasting)) mg/dl POC Glucose (other) (70-99) mg/dl Calcium (8.6-10.3) mg/dl POC Ioniz Calcium Ivelisse (1.12-1.32) mmol/l Troponin I High Sens (0-20) pg/ml Adenovirus (PCR) Not Detected (NotDetected) B. pertussis DNA (PCR) Not Detected (NotDetected) B.parapertussis DNA PCR Not Detected (NotDetected) C. pneumoniae DNA (PCR) Not Detected (NotDetected) Coronavirus OC43 (PCR) Not Detected (NotDetected) Coronavirus HKU1 (PCR) Not Detected (NotDetected) Coronavirus 229E (PCR) Not Detected (NotDetected) SARS-CoV-2 (PCR) Not Detected (NotDetected) Coronavirus NL63 (PCR) Not Detected (NotDetected) Human Metapneumovir PCR Not Detected (NotDetected) Influenza Type A (PCR) Not Detected (NotDetected) Influenza Type B (PCR) Not Detected (NotDetected) M. pneumoniae (PCR) Not Detected (NotDetected) Parainfluenza 1 (PCR) Not Detected (NotDetected) Parainfluenza 2 (PCR) Not Detected (NotDetected) Parainfluenza 3 (PCR) Not Detected (NotDetected) Parainfluenza 4 (PCR) Not Detected (NotDetected) RSV (PCR) Not Detected (NotDetected) Entero/Rhino (PCR) DETECTED A (NotDetected) Imaging Data Attestation: I personally reviewed and interpreted this imaging study as follows: My Impression: Chest x-ray: Fluid overloaded cardiomegaly Radiologist's Impression: Chest X-Ray 04/20/24 17:48 XR chest 1V portable HISTORY: 83 years-old Male sob acute shortness of breath COMPARISON: 04/05/2024 TECHNIQUE: AP view of the chest FINDINGS: Cardiac silhouette is enlarged. Stable positioning of the dual lumen right IJ hemodialysis catheter. No pneumothorax. Mixed interstitial and alveolar opacities have progressed with persistent bilateral pleural effusions and bibasilar consolidation. Bones appear intact. IMPRESSION: 1. Cardiomegaly with progressive pulmonary edema. 2. Layering pleural effusions with persistent bibasilar consolidation. ACT 112: Negative or not required by law. The above report was generated using voice recognition software. It may contain grammatical, syntax or spelling errors. Electronically signed by: Gary Linton M.D. 04/20/2024 6:14 PM ECG Data Attestation: I personally reviewed and interpreted this ECG as follows: Interpretation: Sinus rhythm with a rate of 83. NE 212 QRS [address] elevation or ST depression. First-degree AV block present. T wave inversion in lead aVL. No significant change from the EKG done in April 05, 2024. [facility] Narrative 1746: The patient was evaluated in room A1. A complete history and physical exam was performed Cardiac monitoring: An order was placed for continuous cardiac monitoring. The monitor shows a rate of 80 with sinus rhythm interpreted by me Patient transitioned to BiPAP. Patient is very hypertensive thought that the patient is fluid overloaded. 0.4 sublingual nitroglycerin ordered for the patient. 183: Vital signs improved. Patient reports his breathing is better with BiPAP. Patient is no longer having labored breathing no longer retractions. Chest x- ray does show fluid overloaded. Labs show an elevated creatinine normal potassium BUN is in the 50s. Patient will be admitted to the [facility] hospitalist team. Discussed case with Dr. Jimenez who will evaluate the patient. He recommends given the patient's 80 mg of Lasix this patient states he still does make urine. Impression & Plan Hypoxia, End stage renal disease, Fluid overload Critical Care Time Critical Care Time: Yes Total Critical Care Time: 40 I have personally spent greater than 40 minutes of critical care time in the direct management of this patient. This includes bedside care, interpretation of diagnostic studies, and testing, discussion with consultants, patient, and family members, and other required patient management activities. This 40 minutes is in excess of all separately billable procedures. Discharge Plan Visit Data Chief Complaint: Respiratory Distress ED Provider: Shahab Mo Discharge Problem: Hypoxia, End stage renal disease, Fluid overload Patient Disposition: Being Evaluated by Hospitalist Forms Stand Alone Forms: My [facility] Prescriptions Prescriptions: No Action (DME) BD SafetyGlide Insulin Syringe 0.3 mL 31 gauge x 15/64" syringe MISCELLANEOUS Qty: 700 3RF Rx Instructions: Use 7 times daily amiodarone 200 mg tablet 200 mg PO DAILY Qty: 90 3RF Dose Instruction: 1 TAB BY MOUTH EVERY DAY pantoprazole 40 mg tablet,delayed release (DR/EC) 40 mg PO DAILYBB Qty: 90 3RF Rx Instructions: 1 TAB BY MOUTH EVERY MORNING *DO NOT CRUSH* Novolin R FlexPen 100 unit/mL (3 mL) insulin pen See Rx Instructions .ROUTE .COMPLEX MDD 30 units Qty: 15 11RF Hold Instructions: To restart? Dose Instruction: SLIDING SCALE: (ROTATE SITES) FOUR TIMES DAILY SUBQ 141-175=1UNIT; 176- 210=2UNITS; 211-245=3UNITS; 246-280=4UNITS; 246-280=4UNITS; 281-315=5UNITS; 316- 350=6UNITS Rx Instructions: Novolin-R 3 units with breakfast; 6 units with lunch; 8 units with dinner + sliding scale (<141: 0 units, 141-175: 1 unit, 176-210: 2 units, 211-245: 3 units, 246-280: 4 units, 281-315: 5 units, etc.) multivitamin Tablet 1 tab PO DAILY Qty: 90 3RF Hold Instructions: restart? levothyroxine 50 mcg tablet 50 mcg PO DAILYBB Qty: 90 1RF Rx Instructions: 1 TAB BY MOUTH EVERY MORNING TAKE ON AN EMPTY STOMACH WITH A FULL GLASS OF WATER WAIT 30 MINUTES TO EAT, DRINK OR TAKE MEDICATIONS triamcinolone acetonide 0.1 % cream 1 applic TOP BID Qty: 80 5RF midodrine 2.5 mg tablet 2.5 mg PO TIDM Qty: 270 3RF (DME) pen needle, diabetic [BD Ultra-Fine Mini Pen Needle] 31 gauge x 3/16" needle See Rx Instructions .ROUTE .COMPLEX Qty: 100 11RF Dose Instruction: USE FOR INSULIN INJECTION NEEDED Rx Instructions: USE FOR INSULIN INJECTION NEEDED atorvastatin 80 mg tablet 80 mg PO QAM Qty: 90 3RF clopidogrel 75 mg tablet 75 mg PO DAILY Qty: 90 3RF furosemide 80 mg tablet 80 mg PO QAM Qty: 30 3RF insulin glargine [Basaglar KwikPen U-100 Insulin] 100 unit/mL (3 mL) insulin pen 10 unit subcut BID fluticasone propionate 50 mcg/actuation spray,suspension 1 spray intranasal BID Qty: 16 11RF tramadol 50 mg tablet 50 mg PO Q12H PRN (Reason: pain) Qty: 60 5RF (DME) FreeStyle Ritchie 14 Day Sensor Kit MISCELLANEOUS (DME) FreeStyle Ritchie 14 Day [place] Misc MISCELLANEOUS amoxicillin 500 mg capsule 2,000 mg PO DIRECTED PRN (Reason: 1 HR PRIOR TO DENTAL PROCEDURES) docusate sodium 100 mg tablet 200 mg PO HS acetaminophen 325 mg tablet 325 mg PO Q4H PRN (Reason: Pain, Mild) sevelamer carbonate 800 mg tablet 800 mg PO TIDM Rx Instructions: 1 TAB BY MOUTH THREE TIMES DAILY WITH MEALS Eliquis 2.5 mg tablet 2.5 mg PO Q12H metoprolol succinate 50 mg tablet extended release 24 hr 75 mg PO HS Rx Instructions: 1.5 TABS BY MOUTH AT BEDTIME quetiapine [Seroquel] 25 mg tablet 25 mg PO HS Referrals Referrals: Orly Dickson MD [Primary Care Provider] -
[2024-04-20 18:31] LABS: Anion Gap 12 (3-11); BUN Creatinine Ratio 8.9 (10-20); Blood Urea Nitrogen 51 mg/dl (6-23); Calcium 9.7 mg/dl (8.6-10.3); Carbon Dioxide 26 mmol/L (21-32); Chloride 96 mmol/L (98-107); Est GFR (African American) 9.9 ml/min; Est GFR (Non-African American) 8.5 ml/min; Glucose 405 mg/dl (70-99(Fasting)); Potassium 4.1 mmol/L (3.5-5.1); Sodium 134 mmol/L (136-145); Troponin I High Sensitivity 44.7 pg/ml (0-20)
[2024-04-20] MEDS ORDERED: NovoLIN-R INSULIN PER UNIT CHARGE IV STA (18:33)
[2024-04-20 18:35] LABS: Base Excess ABG -1.7 mEq/L (-9-1.8); HCO3 ABG 24 mmol/L (19-24); Oxygen Saturation ABG 98.4 % (90-95); PCO2 ABG 45 mmHg (35-46); PO2 ABG 155 mmHg (80-95); pH ABG 7.34 (7.35-7.45)
[2024-04-20 18:36] LABS: Allen Test Pos (Pos)
[2024-04-20] MEDS: INSULIN HUMAN REGULAR PER UNIT 6 UNITS in SYRINGE 5.94 ML IV ONE (18:51)
[2024-04-20] MEDS: FUROSEMIDE 40 MG/4 ML VIAL IV ONE (18:52)
[2024-04-20] MEDS: NovoLIN-R INSULIN PER UNIT CHARGE ONE (18:58)
--- NOTE | 2024-04-20 19:11 | History & Physical Report ---
Date of Service April 20, 2024 Assessment & Plan (1) Fluid overload: Plan: Unclear etiology but flash pulmonary occurred in setting of ESRD on dialysis Serial troponins to assess for NSTEMI although having no chest pain or EKG changes to suggest this Similar presentation in December with no cause found for flash pulmonary edema Despite ESRD on dialysis he produces some urine therefore will give Lasix 80mg IV now, place banda catheter and monitor urine output for additional doses overnight if urine output is poor Informed nephrology (Dr Snow) of need for urgent dialysis tomorrow. Since he produces some urine and given improvement clinically/ABG I suspect we can avoid dialysis overnight and therefore admit him here. Consult nephrology Strict I&Os, daily weights NPO until after dialysis to avoid worsening pulmonary edema (2) Acute hypoxic respiratory failure: Plan: Hypoxia with hypercapnia Secondary to flash pulmonary edema Biofire PCR ordered BiPAP as needed and at night Aim O2 sats > 90% Hold off Seroquel to reduce sedation tonight but can resume tomorrow night Patient requesting tramadol for pain and he takes this chronically therefore will continue this (3) End stage renal disease: Plan: Consult vascular surgery for permacath removal - pt reports this is due to be removed Consult nephrology for dialysis as above Continue Sevelamer (4) Controlled type 2 diabetes mellitus with kidney complication, with long-term current use of insulin: Plan: HbA1C nor front office representative in ESRD on dialysis Glucose 405 on admission, Insulin 6 units IV given Reduce Lantus to 5 units BID while NPO Novolog: --Goal BSG Range: Low 110 mg/dL, High 140 mg/dL --Correction Factor: 45 mg/dL/unit --Carbohydrate ratio = 15 g/unit --BSGs ACHS if eating, q6h if npo Consult pharmacy for ongoing glycemic control Plan VTE Prophylaxis - Eliquis Diet - NPO Disposition - admit to PCU Admission and Anticipated Discharge Date Admission Date: April 20, 2024 History of Present Illness Chief Complaint: Shortness of breath Primary Care Provider: Orly Dickson MD Davin Gaviria is an 83 year old male who presents to the ER with sudden onset shortness of breath that occurred just before dinner around 6pm. He denies any chest pain, fever, chills, cough, nasal congestion, sinus pain. Feeling well before this. No concern for aspiration as it was prior to eating. No leg edema or weight gain. Did not miss any dialysis sessions. No significant salt intake. He reports receiving dialysis with left arm fistula and does not use PermCath and this is due to be taken out by his vascular surgeon Dr Godinez. Allergies Allergy/AdvReac Type Severity Reaction Status Date / Time latex Allergy Mild SKIN Verified 04/05/24 01:51 IRRITATION Home Medications Medication Instructions Recorded Confirmed Type flash glucose scanning reader 07/19/20 04/03/24 History (FreeStyle Ritchie 14 Day [place]) flash glucose sensor (FreeStyle 07/19/20 04/03/24 History Ritchie 14 Day Sensor kit) insulin syringe,safetyneedle 0.3 #700 ea 01/15/23 04/03/24 Rx mL 31 gauge x 15/64" (BD SafetyGlide Insulin Syringe) amoxicillin 500 mg capsule 2,000 mg PO DIRECTED PRN 1 HR 01/01/24 04/05/24 History PRIOR TO DENTAL PROCEDURES docusate sodium 100 mg tablet 200 mg PO HS 01/01/24 04/05/24 History metoprolol succinate 50 mg 75 mg PO HS 01/06/24 04/05/24 History tablet,extended release 24 hr furosemide 80 mg tablet 80 mg PO QAM #30 tabs 01/24/24 04/05/24 Rx insulin glargine 100 unit/mL (3 10 unit subcut BID 01/24/24 04/05/24 History mL) subcutaneous pen (Basaglar KwikPen U-100 Insulin) amiodarone 200 mg tablet 200 mg PO DAILY #90 tabs 02/15/24 04/05/24 Rx atorvastatin 80 mg tablet 80 mg PO QAM #90 tabs 02/26/24 04/05/24 Rx clopidogrel 75 mg tablet 75 mg PO DAILY #90 tabs 02/26/24 04/05/24 Rx pantoprazole 40 mg tablet,delayed 40 mg PO DAILYBB #90 tabs 03/04/24 04/05/24 Rx release insulin regular human 100 unit/mL See Rx Instructions .Route 03/12/24 04/05/24 Rx (3 mL) subcutaneous pen (Novolin R .COMPLEX #15 mL FlexPen) fluticasone propionate 50 1 spray intranasal BID #16 grams 07/11/24 07/13/24 Rx mcg/actuation nasal spray,suspension levothyroxine 50 mcg tablet 50 mcg PO DAILYBB #90 tabs 04/03/24 04/05/24 Rx multivitamin 1 tab PO DAILY #90 tabs 04/03/24 04/05/24 Rx tramadol 50 mg tablet 50 mg PO Q12H PRN pain #60 tabs 04/03/24 04/05/24 Rx quetiapine 25 mg tablet (Seroquel) 25 mg PO HS 04/04/24 04/05/24 History acetaminophen 325 mg tablet 325 mg PO Q4H PRN Pain, Mild 04/05/24 04/05/24 History apixaban 2.5 mg tablet (Eliquis) 2.5 mg PO Q12H 04/05/24 04/05/24 History sevelamer carbonate 800 mg tablet 800 mg PO TIDM 04/05/24 04/05/24 History triamcinolone acetonide 0.1 % 1 applic topical BID itching #80 04/07/24 Rx topical cream grams midodrine 2.5 mg tablet 2.5 mg PO TIDM #270 tabs 04/08/24 Rx pen needle, diabetic 31 gauge x #100 ea 04/15/24 Rx 3/16" (BD Ultra-Fine Mini Pen Needle) Past Med/Surg History Problem List (Updated 04/20/24 @ 18:40 by Shahab Mo MD) Fluid overload (Acute) End stage renal disease (Acute) Hypoxia (Acute) Acute hypoxic respiratory failure Dialysis AV fistula malfunction Physical deconditioning Ischemic cardiomyopathy (Acute) CAD (coronary artery disease) Hypotension (Acute) NSTEMI (non-ST elevated myocardial infarction) CKD (chronic kidney disease), stage V Dialysis AV fistula malfunction CKD (chronic kidney disease), stage IV Sleep disturbance Health care maintenance Hyperparathyroidism (Chronic) ASCVD (arteriosclerotic cardiovascular disease) Allergic rhinitis Mixed conductive and sensorineural hearing loss of right ear with restricted hearing of left ear Back pain Chronic otitis media of right ear with perforated tympanic membrane (Chronic) Generalized osteoarthritis Nephrolithiasis Coronary arteriosclerosis (Chronic) S/p angioplasty 1990 (no stent or hx of CABG) Sensorineural hearing loss (SNHL) of both ears No hearing aids Hypothyroidism (Chronic) Controlled type 2 diabetes mellitus with kidney complication, with long-term current use of insulin (Chronic) Hgb A1C 09/2022 was 7.7 BPH with obstruction/lower urinary tract symptoms Medical History Hemodialysis catheter malfunction Accelerated hypertension Acute hypoxemic respiratory failure Uremia Atrial fibrillation with rapid ventricular response High anion gap metabolic acidosis Cardiomyopathy Acute combined systolic and diastolic CHF, NYHA class 3 Shortness of breath Elevated troponin Closed head injury Acute lactic acidosis Acute hypoxemic respiratory failure Acute pulmonary edema Murmur Skin tear of left forearm without complication Skin tear of left elbow without complication Obesity Chronic renal insufficiency FOLLOWED BY DR. CORDOVA CKD V Acute pulmonary edema Ear drum perforation High blood urea nitrogen (BUN) COVID-19 Elevated troponin Pneumonia Acute kidney injury superimposed on CKD Acute ND ESRD (end stage renal disease) on dialysis Non-ST elevation ND (NSTEMI) Anemia NSTEMI (non-ST elevated myocardial infarction) Aug 2023 > cath > [facility] > no stents Atrial fibrillation pt unaware Dialysis patient [place] [facility] > M,W,F Pneumonia Sep 2023 > resolved per pt COVID-12 Oct 2023 > resolved Chronic kidney disease BPH (benign prostatic hyperplasia) Arteriovenous fistula Left AVF creation 11/2022- now has occlusion- reason for upcoming procedure History of kidney stones Glaucoma HX OF- S/P TREATMENT- NO CURRENT ISSUES Cyst of kidney, acquired Dyslipidemia Hypertension FOLLOWED BY DR. RAYO Obesity, Class II, BMI 35-39.9 Surgical History History of bilateral knee replacement History of cardiac cath Aug 2023 > cath > [facility] > no stents History of vascular access device right chest at present History of total right knee replacement H/O eye surgery RT/LEFT EYE FOR GLAUCOMA History of cataract surgery LEFT/RT History of total left knee replacement (TKR) X 2 History of lithotripsy a couple times History of tonsillectomy History of angioplasty at the age of 51 History of surgery scrotal hernia repair History of exploratory laparotomy History of umbilical hernia repair History of colonoscopy History of ear surgery Tympanic membrane repair--per pt a couple times Family History Father Cancer of kidney Hypertension Cardiac disorder Family/Other Cancer of kidney Bone cancer Mother Bone cancer Cardiac disorder Hypertension Other No family history of adverse response to anesthesia No family history of bleeding disorder Social History Smoking Status: Former smoker Tobacco Type: Cigarettes Smoking End Date: 30-40 yrs ago; Second Hand Exposure: No; Do You Dip or Chew Tobacco: No; Tobacco Cessation Education Requested by Patient: No Hx Alcohol Use: Yes Alcohol type: wine Alcohol type Comment: occasional Hx Substance Use: No Preferred Language: [place] Communication Ability: Effective Visual Impairment: Limited Hearing Ability: Normal Breakfast Attendant Required: No Beliefs That Will Affect Care: Confucianist Confucianist Beliefs: confucianism marital status: / Current Living Situation: Other Current Living Situation Comment: [facility] current occupational status: employed 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 How many Children do You have: 1 How many Children do You have Comment: Stepdaughter, 2 grandchildren Other Information That Helps Us Care for You: No Feels Safe at Home: Yes Safety Concerns: Feels Safe At This Time Diet: regular caffeine: Yes during the past year weight has: remained stable Dental Care, Regularly: Yes Physical Activity Frequency: 5-6 Times per Week Seatbelt Use: always Sunscreen Use: No Assistive Devices: Walker Review of Systems Review of Systems: All systems reviewed & are unremarkable except as noted in HPI & below Physical Exam Constitutional: well developed and + acute distress (respiratory); + not well nourished Eyes: PERRL, conjunctivae normal, anicteric sclerae ENMT: external ear and nose normal, oropharynx normal Respiratory: + labored breathing, + uses accessory mu scles and able to speak in complete sentences; not tachypneic and expiratory phase not prolonged Cardiovascular: Rate/Rhythm: regular rate and regular rhythm Heart Sounds: + murmur (systolic 4/6 throughout) Extremities: normal capillary refill and + pedal edema (trace b/l pitting); no calf tenderness Gastrointestinal (Abdomen): normal bowel sounds, soft, nontender, no hepatosplenomegaly Musculoskeletal: no cyanosis or clubbing, extremities motor strength 5/5 Neurologic: moves all extremities and awake; not confused Psychiatric: A+Ox3, euthymic affect Results & Data Results & Data Vital Signs (Past 12 Hours) Vital Signs Pulse Pulse Resp BP BP Pulse Ox O2 Del Method 04/20/24 18:36 76 20 119/69 100 BiPAP 04/20/24 18:22 82 26 H 129/79 99 BiPAP 04/20/24 18:15 70 04/20/24 18:13 BiPAP 04/20/24 18:13 04/20/24 18:10 72 26 H 142/87 H 98 BiPAP 04/20/24 18:00 76 21 152/78 H 97 BiPAP 04/20/24 17:58 80 20 149/94 H 97 BiPAP 04/20/24 17:55 73 29 H 96 04/20/24 17:51 82 L BiPAP 04/20/24 17:44 CPAP 04/20/24 17:44 86 30 H Room Air 04/20/24 17:44 88 12 233/123 H CPAP FiO2 04/20/24 18:36 100 04/20/24 18:22 100 04/20/24 18:15 04/20/24 18:13 100 04/20/24 18:13 90 04/20/24 18:10 100 04/20/24 18:00 100 04/20/24 17:58 04/20/24 17:55 100 04/20/24 17:51 04/20/24 17:44 04/20/24 17:44 04/20/24 17:44 Laboratory Results Abnormal lab results 04/20/24 04/20/24 04/20/24 Range/Units 17:50 17:55 17:58 RBC 3.92 L (4.70-6.10) M/uL Hgb 11.9 L (14.0-18.0) g/dl POC Hgb 13.6 L 12.6 L (14.0-18.0) g/dl Hct 39.2 L (42.0-52.0) % POC Hct 40 L 37 L (42-52) % MCHC 30.4 L (32.0-36.0) g/dL RDW Std Deviation 61.5 H (36.4-46.3) fL RDW Coeff of Aysha 16.8 H (11.5-14.5) % Neut # (Auto) 6.65 H (1.40-6.50) K/uL [place] # (Auto) 0.88 H (0.11-0.59) K/uL POC pH 7.25 L (7.35-7.45) POC pCO2 55 H (35-46) mmHg ABG pH (7.35-7.45) ABG pO2 (80-95) mmHg ABG O2 Saturation (90-95) % Sodium 134 L (136-145) mmol/L POC Chloride 98 L (101-112) mmol/L Chloride 96 L (98-107) mmol/L Anion Gap 12 H (3-11) POC BUN 48 H (7-18) mg/dl BUN 51 H (6-23) mg/dl Creatinine 5.70 H* (0.6-1.4) mg/dl POC Creatinine 6.4 H* (0.6-1.3) mg/dl BUN/Creatinine Ratio 8.9 L (10-20) Glucose 405 H* (70-99(Fasting)) mg/dl POC Glucose (other) 386 H* (70-99) mg/dl Troponin I High Sens 44.7 H (0-20) pg/ml 04/20/24 Range/Units 18:22 RBC (4.70-6.10) M/uL Hgb (14.0-18.0) g/dl POC Hgb (14.0-18.0) g/dl Hct (42.0-52.0) % POC Hct (42-52) % MCHC (32.0-36.0) g/dL RDW Std Deviation (36.4-46.3) fL RDW Coeff of Aysha (11.5-14.5) % Neut # (Auto) (1.40-6.50) K/uL [place] # (Auto) (0.11-0.59) K/uL POC pH (7.35-7.45) POC pCO2 (35-46) mmHg ABG pH 7.34 L (7.35-7.45) ABG pO2 155 H (80-95) mmHg ABG O2 Saturation 98.4 H (90-95) % Sodium (136-145) mmol/L POC Chloride (101-112) mmol/L Chloride (98-107) mmol/L Anion Gap (3-11) POC BUN (7-18) mg/dl BUN (6-23) mg/dl Creatinine (0.6-1.4) mg/dl POC Creatinine (0.6-1.3) mg/dl BUN/Creatinine Ratio (10-20) Glucose (70-99(Fasting)) mg/dl POC Glucose (other) (70-99) mg/dl Troponin I High Sens (0-20) pg/ml Diagnostic Findings XR chest 1V portable HISTORY: 83 years-old Male sob acute shortness of breath COMPARISON: 04/05/2024 TECHNIQUE: AP view of the chest FINDINGS: Cardiac silhouette is enlarged. Stable positioning of the dual lumen right IJ hemodialysis catheter. No pneumothorax. Mixed interstitial and alveolar opacities have progressed with persistent bilateral pleural effusions and bibasilar consolidation. Bones appear intact. IMPRESSION: 1. Cardiomegaly with progressive pulmonary edema. 2. Layering pleural effusions with persistent bibasilar consolidation. Medications Administered ER Medications Given: Nitroglycerin 0.4mg SL Furosemide 80mg IV ECG Rate (beats per minute): 83 Rhythm: normal sinus Findings: + 1st degree AV block and + LBBB Comparison ECG Date: from (April 05, 2024) Change: no significant change Code Status & VTE Plan Code Status No CPR in setting of cardiac arrest Ok for intubation in setting of respiratory arrest VTE Prophylaxis Plan VTE Prophylaxis will be ordered: Yes Critical Care Time Critical Care Time: Yes Total Critical Care Time: 35 PG Care Time/CCT Total # of Minutes Spent Total Time Spent with Patient: Total time spent is greater than 50% in coordination of care (as documented) at patient's floor/unit and/or counseling patient: Critical Care Time: Yes Total Critical Care Time: 35 Coding Level of Care Code 53406 INT INP/OBS CARE 3/75MIN Diagnoses Fluid overload E87.70 Acute hypoxic respiratory failure J96.01 End stage renal disease N18.6 Controlled type 2 diabetes mellitus with kidney complication, with long-term current use of insulin E11.29; Z79.4 Additional Codes Critical Care Time - Critical Care Time: Yes ([id number])
[2024-04-20 20:06] LABS: Adenovirus PCR Not Detected (NotDetected); Bordetella parapertussis PCR Not Detected (NotDetected); Bordetella pertussis PCR Not Detected (NotDetected); Chlamydia pneumoniae PCR Not Detected (NotDetected); Coronavirus 229E PCR Not Detected (NotDetected); Coronavirus CoV-2 (COVID19)PCR Not Detected (NotDetected); Coronavirus HKU1 PCR Not Detected (NotDetected); Coronavirus NL63 PCR Not Detected (NotDetected); Coronavirus OC43PCR Not Detected (NotDetected); Human Metapneumovirus PCR Not Detected (NotDetected); Influenza A PCR Not Detected (NotDetected); Influenza B PCR Not Detected (NotDetected); Mycoplasma pneumoniae PCR Not Detected (NotDetected); Parainfluenza Virus 1 PCR Not Detected (NotDetected); Parainfluenza Virus 2 PCR Not Detected (NotDetected); Parainfluenza Virus 3 PCR Not Detected (NotDetected); Parainfluenza Virus 4 PCR Not Detected (NotDetected); Respiratory Syncytial VirusPCR Not Detected (NotDetected); Rhinovirus/Enterovirus PCR DETECTED (NotDetected)
[2024-04-20] MEDS ORDERED: DEXTROSE 50% 50 ML SYRINGE IV PRN (20:45)
[2024-04-20] MEDS ORDERED: CARBOHYDRATES FOR HYPOGLYCEMIA PO PRN (20:45)
[2024-04-20] MEDS ORDERED: GLUCOSE 40% GEL 15 GM TUBE PO PRN (20:45)
[2024-04-20] MEDS ORDERED: GLUCAGON FOR INJ 1 MG VIAL SQ PRN (20:45)
[2024-04-20] MEDS ORDERED: ACETAMINOPHEN 325 MG TAB PO PRN ×2 (20:45)
[2024-04-20] MEDS ORDERED: GLUCOSE 10 TAB/TUBE PO PRN (20:45)
[2024-04-20] MEDS: INSULIN ASPART PER UNIT CHARGE SC SCH ×2 (21:14→23:51)
[2024-04-20] MEDS: LANTUS PER UNIT CHARGE SQ SCH (21:14)
[2024-04-20] MEDS ORDERED: PHARMACY GLYCEMIC MGMT CONSULT PRN (21:27)
[2024-04-20] MEDS: DOCUSATE SODIUM 100 MG CAP PO SCH (21:37)
[2024-04-20] MEDS: FLUTICASONE PROPIONATE NA SPR 16 GM BTL NAE SCH (21:37)
[2024-04-20] MEDS: FUROSEMIDE 40 MG/4 ML VIAL IV STA (21:37)
[2024-04-20] MEDS: traMADol HCL 50 MG TABLET PO PRN (21:37)
[2024-04-20] MEDS: APIXABAN 2.5 MG TAB PO SCH (21:38)
[2024-04-20] MEDS ORDERED: Nursing to Pharmacy Communication SCH (21:45)
[2024-04-20] MEDS: METOPROLOL SUCC 25MG EXT REL TAB PO SCH (22:52)
[2024-04-21] MEDS: LEVOTHYROXINE SODIUM 50 MCG TABLET PO SCH (06:25)
[2024-04-21 06:45] LABS: Appearance Urine Cloudy (Clear); Bacteria Urine Automated None Seen (None Seen); Bilirubin Urine Negative (Negative); Blood Urine 3+ (Negative); Color Urine Yellow; Epithelial Cell Urine Auto 0-2 /hpf (0-2); Glucose Urine UA Negative (Negative); Ketones Urine Trace (Negative); Leukocyte Esterase Urine 3+ (Negative); Nitrite Urine Negative (Negative); Protein Urine 2+ (Negative); RBC Urine Automated >20 /hpf (0-2); Specific Gravity Urine 1.016 (1.000-1.030); Urobilinogen Urine Negative (Negative); WBC Urine Automated >50 /hpf (0-5); pH Urine 5.5 (4.5-7.5)
[2024-04-21 06:47] LABS: Basophils # (auto) 0.04 K/uL (0.00-0.20); Basophils % (auto) 0.7 %; Eosinophils # (auto) 0.08 K/uL (0.00-0.50); Eosinophils % (auto) 1.3 %; Hematocrit (blood only) 30.3 % (42.0-52.0); Hemoglobin 9.5 g/dl (14.0-18.0); Immature Granulocytes # (auto) 0.02 K/uL (0.01-0.20); Immature Granulocytes % (auto) 0.3 %; Lymphocytes # (auto) 0.96 K/uL (1.20-3.40); Lymphocytes % (auto) 16.2 %; Mean Corpuscular Hemoglobin 30.6 pg (25.0-34.0); Mean Corpuscular Hgb Conc 31.4 g/dL (32.0-36.0); Mean Corpuscular Volume 97.7 fL (80.0-100.0); Mean Platelet Volume 11.2 fL (9.4-12.4); Monocytes # (auto) 0.72 K/uL (0.11-0.59); Monocytes % (auto) 12.1 %; Neutrophils # (auto) 4.12 K/uL (1.40-6.50); Neutrophils % (auto) 69.4 %; Platelet Count 208 K/uL (130-400); RDW Coefficient of Variation 16.4 % (11.5-14.5); RDW Standard Deviation 58.3 fL (36.4-46.3); White Blood Count 5.94 K/ul (4.8-10.8)
[2024-04-21 07:09] LABS: Albumin Globulin Ratio 1.5 (0.9-2); Albumin Level 3.8 gm/dl (3.4-5.0); BUN Creatinine Ratio 9.4 (10-20); Bilirubin,Total 0.7 mg/dl (0.2-1.0); Calcium 9.1 mg/dl (8.6-10.3); Est GFR (African American) 9.3 ml/min; Est GFR (Non-African American) 8.1 ml/min; Globulin 2.6 gm/dl (2.5-4.0); Magnesium 1.9 mg/dl (1.7-2.4); Phosphorus 5.5 mg/dl (2.5-4.9); Potassium 4.6 mmol/L (3.5-5.1); Total Protein 6.4 gm/dl (6.0-8.3)
--- NOTE | 2024-04-21 08:45 | Nephrology Consultation ---
Date of Consultation April 21, 2024 Assessment & Plan (1) End stage renal disease: * Patient presented with volume overload. * Will arrange for emergency HD this am. Orders have been entered into EMR and HD RN notified. Attempt 4-5 L UF using critline. * Outpatient HD Rx: 3.5hr 2K 2Ca Na 137 HCO3 35 Qb 400 F-180NR; EDW 97.5 kg * PRP, CBC in am. * Document strict I/O's. * Renal diet. Dietary sodium and fluid restriction reviewed. * Furosemide 80 mg daily to encourage urine output. (2) Dialysis AV fistula malfunction: * L BC AVF created 07/03/23 s/p fistulogram + BUILDINGS AND GROUNDS COORDINATOR performed 04/04/[address] Godinez. * AVF cannulated with 2 x 16g for past few treatments. * Patient still has R IJ TDC in place. (3) Acute hypoxic respiratory failure: * Patient presented w/ hypoxemia and volume overload. He currently has no angina or infectious symptoms (4) Atrial fibrillation: * On Amiodarone and Eliquis. HR is controlled- bradycardic. (5) Anemia: * Mild, asymptomatic anemia. Will provide CATY w/ HD today. 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 He dialyzes MWF at [facility] (3.5hr 2K 2Ca Na 137 HCO3 35 Qb 400 F-180NR, EDW 97.5 kg). I am Davin's primary Refuse Collector Supervisor. Mr. Gaviria underwent L RC AVF 12/[address] Godinez. Unfortunately, this failed. L BC AVF was then created 07/03/23 which failed to mature. On 04/04/24, Mr. Gaviria underwent fistulogram with BUILDINGS AND GROUNDS COORDINATOR. He was discharged the same day but missed his scheduled HD treatment. Davin was then admitted to [facility] for urgent HD for volume overload on 04/05/24. TIERA is now being cannulated with 2 16g needles. He has been tolerating HD well. No complications with treatment noted. Davin completed a full treatment on Sunday and left dialysis at 98.3 kg. IDWG typically 2-4 kg. Clearances at goal. Last evening he became suddenly dyspneic and presented to [facility] EMD for evaluation. CXR revealed pulmonary vascular congestion. No acute EKG changes were noted. Evaluation demonstrated volume overload. Dr. Rosales contacted me and emergent HD was coordinated for this morning. PMH: AODM, HTN, hypothyroidism, h/o kidney stones, hyperlipidemia, bilateral SNHL, and ASCVD (LVEF 45-50%, cardiac catheterization 09/15 - 100% LAD after 1st diagonal branch, 90% proximal L circumflex, medical management provided), atrial fibrillation (amiodarone), hypotension (on midodrine), h/o COVID + 10/17. Allergies Allergy/AdvReac Type Severity Reaction Status Date / Time latex Allergy Mild SKIN Verified 04/05/24 01:51 IRRITATION Home Medications Medication Instructions Recorded Confirmed Type flash glucose scanning reader 07/19/20 04/03/24 History (FreeStyle Ritchie 14 Day [place]) flash glucose sensor (FreeStyle 07/19/20 04/03/24 History Ritchie 14 Day Sensor kit) insulin syringe,safetyneedle 0.3 #700 ea 01/15/23 04/03/24 Rx mL 31 gauge x 15/64" (BD SafetyGlide Insulin Syringe) amoxicillin 500 mg capsule 2,000 mg PO DIRECTED PRN 1 HR 01/01/24 04/05/24 History PRIOR TO DENTAL PROCEDURES docusate sodium 100 mg tablet 200 mg PO HS 01/01/24 04/05/24 History metoprolol succinate 50 mg 75 mg PO HS 01/06/24 04/05/24 History tablet,extended release 24 hr furosemide 80 mg tablet 80 mg PO QAM #30 tabs 01/24/24 04/05/24 Rx insulin glargine 100 unit/mL (3 10 unit subcut BID 01/24/24 04/05/24 History mL) subcutaneous pen (Basaglar KwikPen U-100 Insulin) amiodarone 200 mg tablet 200 mg PO DAILY #90 tabs 02/15/24 04/05/24 Rx atorvastatin 80 mg tablet 80 mg PO QAM #90 tabs 02/26/24 04/05/24 Rx clopidogrel 75 mg tablet 75 mg PO DAILY #90 tabs 02/26/24 04/05/24 Rx pantoprazole 40 mg tablet,delayed 40 mg PO DAILYBB #90 tabs 03/04/24 04/05/24 Rx release insulin regular human 100 unit/mL See Rx Instructions .Route 03/12/24 04/05/24 Rx (3 mL) subcutaneous pen (Novolin R .COMPLEX #15 mL FlexPen) fluticasone propionate 50 1 spray intranasal BID #16 grams 04/03/24 04/05/24 Rx mcg/actuation nasal spray,suspension levothyroxine 50 mcg tablet 50 mcg PO DAILYBB #90 tabs 04/03/24 04/05/24 Rx multivitamin 1 tab PO DAILY #90 tabs 04/03/24 04/05/24 Rx tramadol 50 mg tablet 50 mg PO Q12H PRN pain #60 tabs 04/03/24 04/05/24 Rx quetiapine 25 mg tablet (Seroquel) 25 mg PO HS 04/04/24 04/05/24 History acetaminophen 325 mg tablet 325 mg PO Q4H PRN Pain, Mild 04/05/24 04/05/24 History apixaban 2.5 mg tablet (Eliquis) 2.5 mg PO Q12H 04/05/24 04/05/24 History sevelamer carbonate 800 mg tablet 800 mg PO TIDM 04/05/24 04/05/24 History triamcinolone acetonide 0.1 % 1 applic topical BID itching #80 04/07/24 Rx topical cream grams midodrine 2.5 mg tablet 2.5 mg PO TIDM #270 tabs 04/08/24 Rx pen needle, diabetic 31 gauge x #100 ea 04/15/24 Rx 316" (BD Ultra-Fine Mini Pen Needle) Patient History Medical History Hemodialysis catheter malfunction Accelerated hypertension Acute hypoxemic respiratory failure Uremia Atrial fibrillation with rapid ventricular response High anion gap metabolic acidosis Cardiomyopathy Acute combined systolic and diastolic CHF, NYHA class 3 Shortness of breath Elevated troponin Closed head injury Acute lactic acidosis Acute hypoxemic respiratory failure Acute pulmonary edema Murmur Skin tear of left forearm without complication Skin tear of left elbow without complication Obesity Chronic renal insufficiency FOLLOWED BY DR. CORDOVA CKD V Acute pulmonary edema Ear drum perforation High blood urea nitrogen (BUN) COVID-19 Elevated troponin Pneumonia Acute kidney injury superimposed on CKD Acute NV ESRD (end stage renal disease) on dialysis Non-ST elevation NV (NSTEMI) Anemia NSTEMI (non-ST elevated myocardial infarction) Aug 2023 > cath > [facility] > no stents Atrial fibrillation pt unaware Dialysis patient [place] on [facility] > M,W,F Pneumonia Sep 2023 > resolved per pt COVID-12 Oct 2023 > resolved Chronic kidney disease BPH (benign prostatic hyperplasia) Arteriovenous fistula Left AVF creation 11/2022- now has occlusion- reason for upcoming procedure History of kidney stones Glaucoma HX OF- S/P TREATMENT- NO CURRENT ISSUES Cyst of kidney, acquired Dyslipidemia Hypertension FOLLOWED BY DR. RAYO Obesity, Class II, BMI 35-39.9 Surgical History History of bilateral knee replacement History of cardiac cath Aug 2023 > cath > [facility] > no stents History of vascular access device right chest at present History of total right knee replacement H/O eye surgery RT/LEFT EYE FOR GLAUCOMA History of cataract surgery LEFT/RT History of total left knee replacement (TKR) X 2 History of lithotripsy a couple times History of tonsillectomy History of angioplasty at the age of 51 History of surgery scrotal hernia repair History of exploratory laparotomy History of umbilical hernia repair History of colonoscopy History of ear surgery Tympanic membrane repair--per pt a couple times Family History Father Cancer of kidney Hypertension Cardiac disorder Family/Other Cancer of kidney Bone cancer Mother Bone cancer Cardiac disorder Hypertension Other No family history of adverse response to anesthesia No family history of bleeding disorder Social History Smoking Status: Former smoker Tobacco Type: Cigarettes Smoking End Date: 30-40 yrs ago; Second Hand Exposure: No; Do You Dip or Chew Tobacco: No; Tobacco Cessation Education Requested by Patient: No Hx Alcohol Use: Yes Alcohol type: wine Alcohol type Comment: occasional Hx Substance Use: No Preferred Language: Latvian Communication Ability: Effective Visual Impairment: Limited Hearing Ability: Normal Rail Bonder Required: No Beliefs That Will Affect Care: Baptist Baptist Beliefs: lutheran marital status: / Current Living Situation: Other Current Living Situation Comment: [facility] current occupational status: employed 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 How many Children do You have: 1 How many Children do You have Comment: Stepdaughter, 2 grandchildren Other Information That Helps Us Care for You: No Feels Safe at Home: Yes Safety Concerns: Feels Safe At This Time Diet: regular caffeine: Yes during the past year weight has: remained stable Dental Care, Regularly: Yes Physical Activity Frequency: 5-6 Times per Week Seatbelt Use: always Sunscreen Use: No Assistive Devices: Walker Review of Systems Review of Systems: All systems reviewed & are unremarkable except as noted in HPI & below Constitutional: no fever and no chills Respiratory: + dyspnea; no cough and no pain on inspi ration Cardiovascular: + orthopnea; no chest pain, no palpitati ons, no lightheadedness, no syncope and no edema Physical Exam Constitutional: well developed and + frail appearing; no acute distress Eyes: + anicteric sclerae Neck: normal visual inspection Respiratory: normal respiratory effort; not tachypneic Auscultation: lungs clear to auscultation bilaterally Cardiovascular: Rate/Rhythm: regular rate Heart Sounds: normal S1, normal S2 and + murmur Extremities: + edema and + AV fistula (LUE) Musculoskeletal: Extremities: no cyanosis and no clubbing Skin: normal turgor; no lesions Neurologic: Motor/Sensory: no tremor and no asterixis Psychiatric: Orientation: alert and oriented x 3 Results & Data Vital Signs (Past 12 Hours) Vital Signs Temp Pulse Pulse Resp BP Pulse Ox O2 Del Method 04/21/24 07:12 36.4 C L 53 L 14 105/62 97 Oxymask 04/21/24 05:10 36.7 C 50 L 20 107/66 100 BiPAP 04/21/24 03:40 76 23 92 04/20/24 23:35 67 18 105/65 99 Oxymask 04/20/24 23:15 60 23 100 04/20/24 22:41 67 04/20/24 21:02 64 04/20/24 21:00 BiPAP O2 Flow Rate FiO2 04/21/24 07:12 5 04/21/24 05:10 04/21/24 03:40 30 04/20/24 23:35 5 04/20/24 23:15 30 04/20/24 22:41 04/20/24 21:02 04/20/24 21:00 Laboratory Results Laboratory Results - last 24 hr 07/28/24 07/28/24 07/28/24 17:50 17:55 17:58 WBC 10.11 RBC 3.92 L Hgb 11.9 L POC Hgb 13.6 L 12.6 L Hct 39.2 L POC Hct 40 L 37 L MCV 100.0 MCH 30.4 MCHC 30.4 L RDW Std Deviation 61.5 H RDW Coeff of Aysha 16.8 H Plt Count 266 MPV 10.8 Immature Gran % (Auto) 0.6 Neut % (Auto) 65.7 Lymph % (Auto) 22.6 Green % (Auto) 8.7 Eos % (Auto) 1.9 Baso % (Auto) 0.5 Neut # (Auto) 6.65 H Lymph # (Auto) 2.28 Green # (Auto) 0.88 H Eos # (Auto) 0.19 Baso # (Auto) 0.05 Immature Gran # (Auto) 0.06 POC pH 7.25 L POC pCO2 55 H POC pO2 91 POC HCO3 24 POC Base Excess -3.0 ABG pH ABG pCO2 ABG pO2 ABG HCO3 POC ABG O2 Sat 95.0 ABG O2 Saturation ABG Base Excess Aniket Test Oxygen Given POC Sodium 137 135 Sodium 134 L POC Potassium 4.1 4.5 Potassium 4.1 POC Chloride 98 L Chloride 96 L Carbon Dioxide 26 POC Total CO2 26 26 Anion Gap 12 H POC Anion Gap 18.0 POC BUN 48 H BUN 51 H Creatinine 5.70 H* POC Creatinine 6.4 H* Est Cr Clr Drug Dosing Not Reportable Est GFR ( Amer) 9.9 Est GFR (Non-Af Amer) 8.5 BUN/Creatinine Ratio 8.9 L Glucose 405 H* POC Glucose POC Glucose (other) 386 H* Calcium 9.7 POC Ioniz Calcium Ivelisse 1.18 Phosphorus Magnesium Total Bilirubin AST ALT Alkaline Phosphatase Troponin I High Sens 44.7 H Total Protein Albumin Globulin Albumin/Globulin Ratio Urine Color Urine Appearance Urine pH Ur Specific [place]hton Urine Protein Urine Glucose (UA) Urine Ketones Urine Blood Urine Nitrite Urine Bilirubin Urine Urobilinogen Ur Leukocyte Esterase Urine WBC (Auto) Urine RBC (Auto) U Hyaline Cast (Auto) U Epithel Cells (Auto) Urine Bacteria (Auto) Nasal Screen MRSA (PCR) Adenovirus (PCR) B. pertussis DNA (PCR) B.parapertussis DNA PCR C. pneumoniae DNA (PCR) Coronavirus OC43 (PCR) Coronavirus HKU1 (PCR) Coronavirus 229E (PCR) SARS-CoV-2 (PCR) Coronavirus NL63 (PCR) Human Metapneumovir PCR Influenza Type A (PCR) Influenza Type B (PCR) M. pneumoniae (PCR) Parainfluenza 1 (PCR) Parainfluenza 2 (PCR) Parainfluenza 3 (PCR) Parainfluenza 4 (PCR) RSV (PCR) Entero/Rhino (PCR) 04/20/24 04/20/24 04/20/24 18:22 19:00 20:40 WBC RBC Hgb POC Hgb Hct POC Hct MCV MCH MCHC RDW Std Deviation RDW Coeff of Aysha Plt Count MPV Immature Gran % (Auto) Neut % (Auto) Lymph % (Auto) Green % (Auto) Eos % (Auto) Baso % (Auto) Neut # (Auto) Lymph # (Auto) Green # (Auto) Eos # (Auto) Baso # (Auto) Immature Gran # (Auto) POC pH POC pCO2 POC pO2 POC HCO3 POC Base Excess ABG pH 7.34 L ABG pCO2 45 ABG pO2 155 H ABG HCO3 24 POC ABG O2 Sat ABG O2 Saturation 98.4 H ABG Base Excess -1.7 Anikte Test Pos Oxygen Given 90% POC Sodium Sodium POC Potassium Potassium POC Chloride Chloride Carbon Dioxide POC Total CO2 Anion Gap POC Anion Gap POC BUN BUN Creatinine POC Creatinine Est Cr Clr Drug Dosing Est GFR ( Amer) Est GFR (Non-Af Amer) BUN/Creatinine Ratio Glucose POC Glucose 302 H* POC Glucose (other) Calcium POC Ioniz Calcium Ivelisse Phosphorus Magnesium Total Bilirubin AST ALT Alkaline Phosphatase Troponin I High Sens Total Protein Albumin Globulin Albumin/Globulin Ratio Urine Color Urine Appearance Urine pH Ur Specific [place]hton Urine Protein Urine Glucose (UA) Urine Ketones Urine Blood Urine Nitrite Urine Bilirubin Urine Urobilinogen Ur Leukocyte Esterase Urine WBC (Auto) Urine RBC (Auto) U Hyaline Cast (Auto) U Epithel Cells (Auto) Urine Bacteria (Auto) Nasal Screen MRSA (PCR) Adenovirus (PCR) Not Detected B. pertussis DNA (PCR) Not Detected B.parapertussis DNA PCR Not Detected C. pneumoniae DNA (PCR) Not Detected Coronavirus OC43 (PCR) Not Detected Coronavirus HKU1 (PCR) Not Detected Coronavirus 229E (PCR) Not Detected SARS-CoV-2 (PCR) Not Detected Coronavirus NL63 (PCR) Not Detected Human Metapneumovir PCR Not Detected Influenza Type A (PCR) Not Detected Influenza Type B (PCR) Not Detected M. pneumoniae (PCR) Not Detected Parainfluenza 1 (PCR) Not Detected Parainfluenza 2 (PCR) Not Detected Parainfluenza 3 (PCR) Not Detected Parainfluenza 4 (PCR) Not Detected RSV (PCR) Not Detected Entero/Rhino (PCR) DETECTED A 04/20/24 04/20/24 04/21/24 21:17 23:45 00:26 WBC RBC Hgb POC Hgb Hct POC Hct MCV MCH MCHC RDW Std Deviation RDW Coeff of Aysha Plt Count MPV Immature Gran % (Auto) Neut % (Auto) Lymph % (Auto) Green % (Auto) Eos % (Auto) Baso % (Auto) Neut # (Auto) Lymph # (Auto) Green # (Auto) Eos # (Auto) Baso # (Auto) Immature Gran # (Auto) POC pH POC pCO2 POC pO2 POC HCO3 POC Base Excess ABG pH ABG pCO2 ABG pO2 ABG HCO3 POC ABG O2 Sat ABG O2 Saturation ABG Base Excess Aniket Test Oxygen Given POC Sodium Sodium POC Potassium Potassium POC Chloride Chloride Carbon Dioxide POC Total CO2 Anion Gap POC Anion Gap POC BUN BUN Creatinine POC Creatinine Est Cr Clr Drug Dosing Est GFR ( Amer) Est GFR (Non-Af Amer) BUN/Creatinine Ratio Glucose POC Glucose 241 H POC Glucose (other) Calcium POC Ioniz Calcium Ivelisse Phosphorus Magnesium Total Bilirubin AST ALT Alkaline Phosphatase Troponin I High Sens 136.4 H* D Total Protein Albumin Globulin Albumin/Globulin Ratio Urine Color Urine Appearance Urine pH Ur Specific [place]hton Urine Protein Urine Glucose (UA) Urine Ketones Urine Blood Urine Nitrite Urine Bilirubin Urine Urobilinogen Ur Leukocyte Esterase Urine WBC (Auto) Urine RBC (Auto) U Hyaline Cast (Auto) U Epithel Cells (Auto) Urine Bacteria (Auto) Nasal Screen MRSA (PCR) Positive A Adenovirus (PCR) B. pertussis DNA (PCR) B.parapertussis DNA PCR C. pneumoniae DNA (PCR) Coronavirus OC43 (PCR) Coronavirus HKU1 (PCR) Coronavirus 229E (PCR) SARS-CoV-2 (PCR) Coronavirus NL63 (PCR) Human Metapneumovir PCR Influenza Type A (PCR) Influenza Type B (PCR) M. pneumoniae (PCR) Parainfluenza 1 (PCR) Parainfluenza 2 (PCR) Parainfluenza 3 (PCR) Parainfluenza 4 (PCR) RSV (PCR) Entero/Rhino (PCR) 04/21/24 04/21/24 04/21/24 05:57 06:15 Unknown WBC 5.94 RBC 3.10 L Hgb 9.5 L POC Hgb Hct 30.3 L POC Hct MCV 97.7 MCH 30.6 MCHC 31.4 L RDW Std Deviation 58.3 H RDW Coeff of Aysha 16.4 H Plt Count 208 MPV 11.2 Immature Gran % (Auto) 0.3 Neut % (Auto) 69.4 Lymph % (Auto) 16.2 Green % (Auto) 12.1 Eos % (Auto) 1.3 Baso % (Auto) 0.7 Neut # (Auto) 4.12 Lymph # (Auto) 0.96 L Green # (Auto) 0.72 H Eos # (Auto) 0.08 Baso # (Auto) 0.04 Immature Gran # (Auto) 0.02 POC pH POC pCO2 POC pO2 POC HCO3 POC Base Excess ABG pH ABG pCO2 ABG pO2 ABG HCO3 POC ABG O2 Sat ABG O2 Saturation ABG Base Excess Aniket Test Oxygen Given POC Sodium Sodium 138 POC Potassium Potassium 4.6 POC Chloride Chloride 101 Carbon Dioxide 28 POC Total CO2 Anion Gap 9 POC Anion Gap POC BUN BUN 56 H Creatinine 5.96 H* POC Creatinine Est Cr Clr Drug Dosing 11.0 Est GFR ( Amer) 9.3 Est GFR (Non-Af Amer) 8.1 BUN/Creatinine Ratio 9.4 L Glucose 104 H POC Glucose 115 H POC Glucose (other) Calcium 9.1 POC Ioniz Calcium Ivelisse Phosphorus 5.5 H Magnesium 1.9 Total Bilirubin 0.7 AST 11 L ALT 8 Alkaline Phosphatase 92 Troponin I High Sens 173.5 H* D Total Protein 6.4 Albumin 3.8 Globulin 2.6 Albumin/Globulin Ratio 1.5 Urine Color Yellow Urine Appearance Cloudy A Urine pH 5.5 Ur Specific Ashton 1.016 Urine Protein 2+ H Urine Glucose (UA) Negative Urine Ketones Trace H Urine Blood 3+ H Urine Nitrite Negative Urine Bilirubin Negative Urine Urobilinogen Negative Ur Leukocyte Esterase 3+ H Urine WBC (Auto) >50 H Urine RBC (Auto) >20 H U Hyaline Cast (Auto) 6-10 H U Epithel Cells (Auto) 0-2 Urine Bacteria (Auto) None Seen Nasal Screen MRSA (PCR) Adenovirus (PCR) B. pertussis DNA (PCR) B.parapertussis DNA PCR C. pneumoniae DNA (PCR) Coronavirus OC43 (PCR) Coronavirus HKU1 (PCR) Coronavirus 229E (PCR) SARS-CoV-2 (PCR) Coronavirus NL63 (PCR) Human Metapneumovir PCR Influenza Type A (PCR) Influenza Type B (PCR) M. pneumoniae (PCR) Parainfluenza 1 (PCR) Parainfluenza 2 (PCR) Parainfluenza 3 (PCR) Parainfluenza 4 (PCR) RSV (PCR) Entero/Rhino (PCR) Diagnostic Findings XR chest 1V portable COMPARISON: 04/05/2024 FINDINGS: Cardiac silhouette is enlarged. Stable positioning of the dual lumen right IJ hemodialysis catheter. No pneumothorax. Mixed interstitial and alveolar opacities have progressed with persistent bilateral pleural effusions and bibasilar consolidation. Bones appear intact. IMPRESSION: 1. Cardiomegaly with progressive pulmonary edema. 2. Layering pleural effusions with persistent bibasilar consolidation. PG Care Time/CCT Total # of Minutes Spent Total Time Spent with Patient: Total time spent is greater than 50% in coordination of care (as documented) at patient's floor/unit and/or counseling patient: Coding Level of Care Code 04666 IN/OBS CONSULT LVL 5,80M Diagnoses End stage renal disease N18.6 Dialysis AV fistula malfunction T82.590A Acute hypoxic respiratory failure J96.01 Atrial fibrillation I48.91 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
--- NOTE | 2024-04-21 08:55 | Communication Note ---
Date of Service: April 21, 2024 Will not remove permcath unless nephrology claims the fistula is working well and it is time to remove the permcath. Please reconsult at that time.
[2024-04-21] MEDS: MIDODRINE HCL 2.5 MG TAB PO ONE (10:11)
[2024-04-21] MEDS: EPOETIN ALFA 10,000 UNITS/ML VIAL IV ONE (10:11)
[2024-04-21] MEDS: PANTOprazole 40 MG TAB PO SCH (13:53)
[2024-04-21] MEDS: SEVELAMER CARBONATE 800 MG TAB PO SCH (13:53)
[2024-04-21] MEDS: FUROSEMIDE 80 MG TAB PO SCH (13:53)
[2024-04-21] MEDS: AMIODARONE 200 MG TAB PO SCH (13:54)
[2024-04-21] MEDS: ATORVASTATIN 40 MG TAB PO SCH (13:54)
[2024-04-21] MEDS: CLOPIDOGREL BISULFATE 75 MG TAB PO SCH (13:54)
--- NOTE | 2024-04-21 14:24 | Pharmacy Report ---
Pharmacy Glycemic Short Note 2 - Date of Service April 21, 2024 - Glycemic Short BSG Results (Last 24 hours): 04/20/24 04/20/24 04/20/24 17:50 17:55 20:40 Glucose 405 H* POC Glucose 302 H* POC Glucose (other) 386 H* 04/20/24 04/21/24 04/21/24 23:45 05:57 06:15 Glucose 104 H POC Glucose 241 H 115 H POC Glucose (other) 04/21/24 13:47 Glucose POC Glucose 107 H POC Glucose (other) OUTPATIENT ANTIDIABETIC REGIMEN: * Basaglar 10 units SQ BID * Novolin R SSI * Patient's A1c = 8.5% 02/26/24 * However, this result is likely somewhat unreliable in ESRD patients d/t interactions between the A1c analyzing technique and high levels of urea in ESRD, reduced RBC life span, iron deficiency anemia, and EPO administration. HbA1c > 7.5% in ESRD patient may overestimate the extent of hyperglycemia in ESRD patients. ASSESSMENT: * Davin is a an 83 YOM admitted with fluid overload and a history of T2DM. Pharmacy has been consulted to assist with glycemic management in the setting of ESRD and NPO status. * Fasting BSG this AM within goal range, hyperglycemic on admission, given 6 units of IV regular insulin and 5 units of Lantus. Home dose of Lantus cut in half, no indication to change at this time. * BSGs trended down overnight, Novolog parameters tightened yesterday evening, appear to be adequate correction, unable to assess carbohydrate ratio at this time. He was just ordered a diet after dialysis today. PLAN FOR INPATIENT GLYCEMIC CONTROL: * Hold outpatient oral diabetes medications * Basal insulin * Lantus 5 unit SQ BID units SQ BID * Bolus insulin * NovoLog per scale ACHS or Q6hrs while NPO * Goal Range: Low 110 mg/dL - High 140 mg/dL * Correction Factor: 25 mg/dL/unit * Nutritional / Prandial insulin per carb ratio of 1 unit per 8 grams CHO consumed
[2024-04-21] MEDS: INSULIN ASPART PER UNIT CHARGE SC SCH (17:22)
--- NOTE | 2024-04-21 18:54 | XRay Report ---
XR chest 2V PA/lateral CLINICAL HISTORY: hypoxia TECHNIQUE: 2 views of the chest were obtained. Comparison: Comparison is made to chest radiograph 04/12/2024 FINDINGS: Lines and tubes are stable. Cardiomegaly is noted. Previously noted pulmonary edema has resolved. Tra ce bilateral pleural effusions. IMPRESSION: Cardiomegaly is unchanged. Previously noted pulmonary edema has resolved. Trace bilateral pleural eff usions. ACT 112: Negative or not required by law. Electronically signed by: You Mario M.D. 04/21/2024 6:52 PM
[2024-04-21] MEDS: QUEtiapine FUMARATE 25 MG TABLET PO SCH (20:29)
--- NOTE | 2024-04-21 22:41 | Hospitalist Progress Note ---
Date of Service April 21, 2024 Assessment & Plan (1) Fluid overload: Plan: Unclear etiology but flash pulmonary occurred in setting of ESRD on dialysis Poosible Cardiorenal syndrome Serial troponins to assess for NSTEMI although having no chest pain or EKG changes to suggest this High sensitivity troponin only mildly elevated in a patient on HD will obtain echocardiogram, repeat chest x ray as clarice had about 3 liters removed on dialysis on 04/21 Similar presentation in December with no cause found for flash pulmonary edema Despite ESRD on dialysis he produces some urine there he did recieve lasix on day 1. Consult nephrology Strict I&Os, daily weights Ttitrating off supplemental oxygen. will repeat chest x ray. (2) Acute hypoxic respiratory failure: Plan: Hypoxia with hypercapnia Secondary to flash pulmonary edema Biofire PCR ordered BiPAP as needed and at night Aim O2 sats > 90% Hold off Seroquel to reduce sedation tonight but can resume tomorrow night Patient requesting tramadol for pain and he takes this chronically therefore will continue this (3) End stage renal disease: Plan: Consult vascular surgery for permacath removal - pt reports this is due to be removed Consult nephrology for dialysis as above Continue Sevelamer (4) Controlled type 2 diabetes mellitus with kidney complication, with long-term current use of insulin: Plan: HbA1C nor treasury representative in ESRD on dialysis Glucose 405 on admission, Insulin 6 units IV given Reduce Lantus to 5 units BID while NPO Novolog: --Goal BSG Range: Low 110 mg/dL, High 140 mg/dL --Correction Factor: 45 mg/dL/unit --Carbohydrate ratio = 15 g/unit --BSGs ACHS if eating, q6h if npo Consult pharmacy for ongoing glycemic control Plan VTE Prophylaxis - Eliquis Disposition - admit to PCU Admission and Anticipated Discharge Date Admission Date: April 20, 2024 Subjective Patient reports feeling better. He is in high spirits and making jokes. He is breathing better. No fever, chills, nausea, vomting, fatigue, weakness. Physical Exam Constitutional: well developed and + frail appearing; no acute distress Eyes: + anicteric sclerae Neck: normal visual inspection Respiratory: normal respiratory effort; not tachypneic Auscultation: lungs clear to auscultation bilaterally (except bibasilar rales) Cardiovascular: Rate/Rhythm: regular rate Heart Sounds: normal S1, normal S2 and + murmur Extremities: + edema and + AV fistula (LUE) Musculoskeletal: Extremities: no cyanosis and no clubbing Skin: normal turgor; no lesions Neurologic: Motor/Sensory: no tremor and no asterixis Psychiatric: Orientation: alert and oriented x 3 Results & Data Results & Data Vital Signs (Past 12 Hours) Vital Signs Temp Pulse Pulse Resp BP BP Pulse Ox 04/21/24 19:00 36.9 C 58 L 21 103/62 100 04/21/24 14:53 62 04/21/24 14:16 36.7 C 66 20 105/61 97 04/21/24 13:15 36.5 C 64 109/63 04/21/24 12:00 60 123/42 L 04/21/24 11:30 57 L 103/59 L 04/21/24 11:00 53 L 97/53 L O2 Del Method O2 Flow Rate 04/21/24 19:00 Nasal Cannula 2 04/21/24 14:53 04/21/24 14:16 Nasal Cannula 5 04/21/24 13:15 04/21/24 12:00 04/21/24 11:30 04/21/24 11:00 PG Care Time/CCT Total # of Minutes Spent Total Time Spent with Patient: Total time spent is greater than 50% in coordination of care (as documented) at patient's floor/unit and/or counseling patient: Coding Level of Care Code 89829 SUB INP/OBS CARE 2/35MIN Diagnoses Fluid overload E87.70 Acute hypoxic respiratory failure J96.01 End stage renal disease N18.6 Controlled type 2 diabetes mellitus with kidney complication, with long-term current use of insulin E11.29; Z79.4
[2024-04-22] MEDS: guaiFENesin/DEXTROM SYRUP 200MG/20MG 10ML UDC PO PRN (03:22)
--- NOTE | 2024-04-22 06:02 | Electrocardiogram Report ---
Test Reason : Blood Pressure : / mmHG Vent. Rate : 083 BPM Atrial Rate : 083 BPM P-R Int : 212 ms QRS Dur : 130 ms QT Int : 390 ms P-R-T Axes : 076 -32 075 degrees QTc Int : 458 ms Sinus rhythm with sinus arrhythmia with 1st degree A-V block Premature supraventricular complexes Left axis deviation Left ventricular hypertrophy with QRS widening ( R in aVL , Arpan product , Romhilt-Hein ) Cannot rule out Septal infarct (cited on or before 20-APR-2024) Abnormal ECG When compared with ECG of 05-APR-2024 01:15, Premature supraventricular complexes are now Present Confirmed by Edgar Bermudez ([id number]) on 04/22/2024 6:02:04 AM Referred By: Radha harris [facility] Confirmed By:Edgar Bermudez
[2024-04-22 07:45] LABS: Hematocrit (blood only) 33.7 % (42.0-52.0); Hemoglobin 10.5 g/dl (14.0-18.0); Mean Corpuscular Hemoglobin 30.3 pg (25.0-34.0); Mean Corpuscular Hgb Conc 31.2 g/dL (32.0-36.0); Mean Corpuscular Volume 97.4 fL (80.0-100.0); Mean Platelet Volume 10.6 fL (9.4-12.4); Platelet Count 216 K/uL (130-400); RDW Coefficient of Variation 16.5 % (11.5-14.5); RDW Standard Deviation 59.4 fL (36.4-46.3); Red Blood Count 3.46 M/uL (4.70-6.10); White Blood Count 6.34 K/ul (4.8-10.8)
--- NOTE | 2024-04-22 07:48 | Hospitalist Progress Note ---
Date of Service April 22, 2024 Assessment & Plan (1) Fluid overload: Plan: Unclear etiology but flash pulmonary occurred in setting of ESRD on dialysis Poosible Cardiorenal syndrome 3 liters removed on dialysis on 04/21, Despite ESRD on dialysis he produces some urine there he did recieve lasix on day 1. 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, not ammenable to intervention at that time echocardiogram in the past with EF 50% and inf RWMA, Similar presentation in December with no cause found for flash pulmonary edema Consult nephrology for management of ESRD, Consult vascular surgery for permacath removal - pt reports this is due to be removed Continue Sevelamer possible tunnel cath removal 04/22/24 (2) Acute hypoxic respiratory failure: Plan: Hypoxia with hypercapnia, Secondary to flash pulmonary edema Biofire PCR ordered BiPAP as needed and at night Aim O2 sats > 90% Hold off Seroquel to reduce sedation tonight but can resume tomorrow night Patient requesting tramadol for pain and he takes this chronically therefore will continue this (3) Controlled type 2 diabetes mellitus with kidney complication, with long-term current use of insulin: Plan: HbA1C not public relations representative in ESRD on dialysis Glucose 405 on admission Novolog: --Goal BSG Range: Low 110 mg/dL, High 140 mg/dL --Correction Factor: 45 mg/dL/unit --Carbohydrate ratio = 15 g/unit --BSGs ACHS if eating, q6h if npo Consult pharmacy for ongoing glycemic control (4) Atrial fibrillation: Plan: Pt with Afib on admission in winter, on amiodarone, metoprolol and eliquis renal dose For CAD on plavix and atorvastatin additionally Plan VTE Prophylaxis - Eliquis Disposition - admit to PCU Admission and Anticipated Discharge Date Admission Date: April 20, 2024 Subjective pt is feeling much better, does admit to some dietary sodium but not using salt shaker etc, logistic issue to get back to assisted living, now if stays tomorrow may need dialysis here and try to remove tunnel cath Physical Exam Physical Exam: pt with some pretibial edema, and some edema to hands lungs are clear cardiac is regular Results & Data Results & Data Vital Signs (Past 12 Hours) Vital Signs Temp Pulse Pulse Pulse Resp BP Pulse Ox 04/22/24 07:21 70 04/22/24 07:18 98.6 F 75 18 117/62 93 04/22/24 02:40 98.2 F 88 19 129/69 92 04/22/24 00:06 04/21/24 22:00 99.3 F 64 21 123/64 97 04/21/24 21:56 62 O2 Del Method 04/22/24 07:21 04/22/24 07:18 Room Air 04/22/24 02:40 Room Air 04/22/24 00:06 Room Air 04/21/24 22:00 Room Air 04/21/24 21:56 Laboratory Results review cbc review chemistry, mild hyponatremia PG Care Time/CCT Total # of Minutes Spent Total Time Spent with Patient: Total time spent is greater than 50% in coordination of care (as documented) at patient's floor/unit and/or counseling patient: Coding Level of Care Code 49006 SUB INP/OBS CARE 2/35MIN Diagnoses Fluid overload E87.70 Acute hypoxic respiratory failure J96.01 Controlled type 2 diabetes mellitus with kidney complication, with long-term current use of insulin E11.29; Z79.4 Atrial fibrillation I48.91
[2024-04-22 08:20] LABS: BUN Creatinine Ratio 8.7 (10-20); Calcium 9.4 mg/dl (8.6-10.3); Creatinine Clr Calc Pharmacy 12.1 ml/min; Est GFR (African American) 10.8 ml/min; Est GFR (Non-African American) 9.3 ml/min; Potassium 4.8 mmol/L (3.5-5.1)
[2024-04-22] MEDS: LANTUS PER UNIT CHARGE SC SCH ×2 (09:11→20:40)
--- NOTE | 2024-04-22 09:46 | Nephrology Progress Note ---
Date of Service April 22, 2024 Assessment & Plan (1) End stage renal disease: Plan: * Patient presented with volume overload. * Completed HD yesterday with adequate clearance and UF. * BP and volume status acceptable. No indication for HD today. * Next HD treatment planned for tomorrow. * Outpatient HD Rx: MWF 3.5hr 2K 2Ca Na 137 HCO3 35 Qb 400 F-180NR; EDW 97.5 kg. * Discussed increasing treatment time for additional UF and clearance at HD. * PRP, CBC in am. * Document strict I/O's. * Renal diet. Dietary sodium and fluid restriction reviewed. * Furosemide 80 mg daily to encourage urine output. (2) Dialysis AV fistula malfunction: Plan: * L BC AVF created 07/03/23 s/p fistulogram + [employer] B[employer]ER performed 04/04/[address] Godinez. * AVF has been successfully cannulated with 2 x 16g needles. * Patient still has R IJ TDC in place. * Vascular surgery consulted for catheter removal. If discharged, this can be coordinated as an outpatient. (3) Acute hypoxic respiratory failure: Plan: * Patient presented w/ hypoxemia and volume overload. He currently has no angina or infectious symptoms (4) Atrial fibrillation: Plan: * On Amiodarone and Eliquis. HR is controlled. (5) Anemia: Plan: * Chronic, stable anemia. Epogen 79590 units provided with HD yesterday. Admission and Anticipated Discharge Date Admission Date: April 20, 2024 Subjective No acute events overnight. Davin tolerated HD well yesterday. No complications with treatment. He was resting comfortably in his bedside chair this AM. Denies shortness of breath. No chest pains or palpitations. No lightheadedness or dizziness. Review of Systems Review of Systems: All systems reviewed & are unremarkable except as noted in HPI & below Physical Exam Constitutional: well developed; no acute distress Eyes: + anicteric sclerae Neck: normal visual inspection Respiratory: normal respiratory effort; not tachypneic Auscultation: lungs clear to auscultation bilaterally Cardiovascular: Rate/Rhythm: regular rate Heart Sounds: normal S1, normal S2 and + murmur Extremities: + edema and + AV fistula (LUE) Musculoskeletal: Extremities: no cyanosis and no clubbing Skin: normal turgor; no lesions Neurologic: Motor/Sensory: no tremor and no asterixis Psychiatric: Orientation: alert and oriented x 3 Results & Data Vital Signs (Past 12 Hours) Vital Signs Temp Pulse Pulse Pulse Resp BP Pulse Ox 04/22/24 07:21 70 04/22/24 07:18 37.0 C 75 18 117/62 93 04/22/24 02:40 36.8 C 88 19 129/69 92 04/22/24 00:06 04/21/24 22:00 37.4 C 64 21 123/64 97 04/21/24 21:56 62 O2 Del Method 04/22/24 07:21 04/22/24 07:18 Room Air 04/22/24 02:40 Room Air 04/22/24 00:06 Room Air 04/21/24 22:00 Room Air 04/21/24 21:56 Laboratory Results Laboratory Results - last 24 hr 04/21/24 04/21/24 04/21/24 13:47 16:15 18:34 WBC RBC Hgb Hct MCV MCH MCHC RDW Std Deviation RDW Coeff of Aysha Plt Count MPV Sodium Potassium Chloride Carbon Dioxide Anion Gap BUN Creatinine Est Cr Clr Drug Dosing Est GFR ( Amer) Est GFR (Non-Af Amer) BUN/Creatinine Ratio Glucose POC Glucose 107 H 198 H Calcium Troponin I High Sens 103.1 H* D B-Natriuretic Peptide 04/21/24 04/22/24 20:24 07:25 WBC 6.34 RBC 3.46 L Hgb 10.5 L Hct 33.7 L MCV 97.4 MCH 30.3 MCHC 31.2 L RDW Std Deviation 59.4 H RDW Coeff of Aysha 16.5 H Plt Count 216 MPV 10.6 Sodium 133 L Potassium 4.8 Chloride 99 Carbon Dioxide 24 Anion Gap 10 BUN 46 H Creatinine 5.28 H* D Est Cr Clr Drug Dosing 12.1 Est GFR ( Amer) 10.8 Est GFR (Non-Af Amer) 9.3 BUN/Creatinine Ratio 8.7 L Glucose 237 H POC Glucose 216 H 238 H Calcium 9.4 Troponin I High Sens B-Natriuretic Peptide 662 H PG Care Time/CCT Total # of Minutes Spent Total Time Spent with Patient: Total time spent is greater than 50% in coordination of care (as documented) at patient's floor/unit and/or counseling patient: Coding Level of Care Code 41898 SUB INP/OBS CARE MIN Diagnoses End stage renal disease N18.6 Dialysis AV fistula malfunction T82.590A Acute hypoxic respiratory failure J96.01 Atrial fibrillation I48.91 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
--- NOTE | 2024-04-22 17:01 | XCELERA ---
[id number] \\[id number]
[2024-04-22] MEDS: POLYETHYLENE (MIRALAX) 17 GM PACK PO PRN (21:10)
[2024-04-22] MEDS ORDERED: Nursing to Pharmacy Communication SCH (21:15)
[2024-04-22] MEDS: INSULIN ASPART PER UNIT CHARGE SC SCH (23:59)
[2024-04-23] MEDS: LANTUS PER UNIT CHARGE SC SCH (09:36)
--- NOTE | 2024-04-23 10:27 | Nephrology Progress Note ---
Date of Service April 23, 2024 Assessment & Plan (1) End stage renal disease: Plan: * Orders for HD today entered into the EHR and reviewed with hose suspender cutter * Outpatient HD Rx: MWF 3.5hr 2K 2Ca Na 137 HCO3 35 Qb 400 F-180NR; EDW 97.5 kg. * Treatment time adjusted additional UF and clearance at HD. * AVF functioning well. TDC to be removed. * Document strict I/O's. * Renal diet. Dietary sodium and fluid restriction reviewed. * Furosemide 80 mg daily to encourage urine output. (2) Dialysis AV fistula malfunction: Plan: * L BC AVF created 07/03/23 s/p fistulogram + [employer] DEFENSE OFFICER performed 04/04/[address] Godinez. * AVF has been successfully cannulated with 2 x 16g needles. * Patient still has R IJ TDC in place. * Vascular surgery consulted for catheter removal. (3) Acute hypoxic respiratory failure: Plan: * Patient presented w/ hypoxemia and volume overload. (4) Anemia: Plan: * Chronic, stable anemia. Epogen 00982 units provided with HD 04/21. Admission and Anticipated Discharge Date Admission Date: April 20, 2024 Subjective No acute events overnight. No complaints this AM. Review of Systems Review of Systems: All systems reviewed & are unremarkable except as noted in HPI & below Physical Exam Constitutional: well developed and + frail appearing; no acute distress Eyes: + anicteric sclerae Neck: normal visual inspection Respiratory: normal respiratory effort; not tachypneic Auscultation: lungs clear to auscultation bilaterally Cardiovascular: Rate/Rhythm: regular rate Heart Sounds: normal S1, normal S2 and + murmur Extremities: + edema and + AV fistula (LUE) Musculoskeletal: Extremities: no cyanosis and no clubbing Skin: normal turgor; no lesions Neurologic: Motor/Sensory: no tremor and no asterixis Psychiatric: Orientation: alert and oriented x 3 Results & Data Vital Signs (Past 12 Hours) Vital Signs Temp Pulse Pulse Resp BP Pulse Ox O2 Del Method 04/23/24 07:23 59 L 04/23/24 07:12 36.6 C 57 L 17 114/66 94 Room Air 04/23/24 03:32 36.6 C 60 18 127/70 97 Room Air 04/22/24 22:52 36.7 C 60 18 126/70 96 Room Air Laboratory Results Laboratory Results - last 24 hr 04/22/24 04/22/24 04/22/24 11:04 16:14 19:57 POC Glucose 249 H 212 H 299 H 04/22/24 04/23/24 23:48 05:52 POC Glucose 272 H 170 H PG Care Time/CCT Total # of Minutes Spent Total Time Spent with Patient: Total time spent is greater than 50% in coordination of care (as documented) at patient's floor/unit and/or counseling patient: Coding Level of Care Code 77464 SUB INP/OBS CARE 3/50MIN Diagnoses End stage renal disease N18.6 Dialysis AV fistula malfunction T82.590A Acute hypoxic respiratory failure J96.01 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
--- NOTE | 2024-04-23 10:44 | Pharmacy Report ---
Pharmacy Glycemic Short Note 2 - Date of Service April 23, 2024 - Glycemic Short BSG Results (Last 24 hours): 04/22/24 04/22/24 04/22/24 11:04 16:14 19:57 POC Glucose 249 H 212 H 299 H 04/22/24 04/23/24 23:48 05:52 POC Glucose 272 H 170 H OUTPATIENT ANTIDIABETIC REGIMEN: * Basaglar 10 units SQ BID * Novolin R SSI * Patient's A1c = 8.5% 02/26/24 * However, this result is likely somewhat unreliable in ESRD patients d/t interactions between the A1c analyzing technique and high levels of urea in ESRD, reduced RBC life span, iron deficiency anemia, and EPO administration. HbA1c > 7.5% in ESRD patient may overestimate the extent of hyperglycemia in ESRD patients. ASSESSMENT: 04/23 * Blood sugars above goal yesterday, patient had diet, no HD, and only 15 units of basal - needed more basal. No change for today though as patient is NPO for surgery for catheter removal by vascular surgery. HD also scheduled for today. * Increase basal insulin tomorrow and possibly tighten NovoLog parameters for tomorrow when diet resumed. 04/21 * Davin is a an 83 YOM admitted with fluid overload and a history of T2DM. Pharmacy has been consulted to assist with glycemic management in the setting of ESRD and NPO status. * Fasting BSG this AM within goal range, hyperglycemic on admission, given 6 units of IV regular insulin and 5 units of Lantus. Home dose of Lantus cut in half, no indication to change at this time. * BSGs trended down overnight, NovoLog parameters tightened yesterday evening, appear to be adequate correction, unable to assess carbohydrate ratio at this time. He was just ordered a diet after dialysis today. PLAN FOR INPATIENT GLYCEMIC CONTROL: * Hold outpatient diabetes medications * Basal insulin * Lantus 5 unit SQ AM, 5-10 units HS * Bolus insulin * NovoLog per scale ACHS or Q6hrs while NPO * Goal Range: Low 110 mg/dL - High 140 mg/dL * Correction Factor: 20 mg/dL/unit * Nutritional / Prandial insulin per carb ratio of 1 unit per 7 grams CHO consumed
[2024-04-23] MEDS: INSULIN ASPART PER UNIT CHARGE SC SCH (16:23)
--- NOTE | 2024-04-23 16:35 | Hospitalist Progress Note ---
Date of Service April 23, 2024 Assessment & Plan (1) Fluid overload: Plan: Unclear etiology but flash pulmonary occurred in setting of ESRD on dialysis Poosible Cardiorenal syndrome Despite ESRD on dialysis he produces some urine there he did recieve lasix on day 1. 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, not ammenable to intervention at that time echocardiogram in the past with EF 50% and inf RWMA, Similar presentation in December with no cause found for flash pulmonary edema Consult nephrology for management of ESRD, Consult vascular surgery for permacath removal - pt reports this is due to be removed Continue Sevelamer possible tunnel cath removal 04/23/24 (2) Acute hypoxic respiratory failure: Plan: Hypoxia with hypercapnia, Secondary to flash pulmonary edema Biofire PCR ordered BiPAP as needed and at night Aim O2 sats > 90% Hold off Seroquel to reduce sedation tonight but can resume tomorrow night Patient requesting tramadol for pain and he takes this chronically therefore will continue this (3) Controlled type 2 diabetes mellitus with kidney complication, with long-term current use of insulin: Plan: HbA1C not representative personal service in ESRD on dialysis Glucose 405 on admission Novolog: --Goal BSG Range: Low 110 mg/dL, High 140 mg/dL --Correction Factor: 45 mg/dL/unit --Carbohydrate ratio = 15 g/unit --BSGs ACHS if eating, q6h if npo Consult pharmacy for ongoing glycemic control (4) Atrial fibrillation: Plan: Pt with Afib on admission in winter, on amiodarone, metoprolol and eliquis renal dose For CAD on plavix and atorvastatin additionally Plan VTE Prophylaxis - Eliquis Patient return to assisted living [facility] once hospital stay is complete Admission and Anticipated Discharge Date Admission Date: April 20, 2024 Subjective Patient is stable regarding his hemodynamic status. Undergoing dialysis on 04/23/2024. Patient is scheduled for PermCath removal although there is some operating room delay at this time it is unclear whether this be completed or not on 04/23/2024. Physical Exam Physical Exam: Improved pretibial edema, and some edema to hands lungs are clear cardiac is regular Results & Data Results & Data Vital Signs (Past 12 Hours) Vital Signs Temp Pulse Pulse Pulse Resp BP BP 04/23/24 15:45 97.7 F 63 116/69 04/23/24 15:30 59 L 99/59 L 04/23/24 15:00 61 103/61 04/23/24 14:30 55 L 110/63 04/23/24 14:00 57 L 94/55 L 04/23/24 13:30 56 L 108/62 04/23/24 13:00 57 L 117/70 04/23/24 12:30 52 L 91/58 L 04/23/24 12:00 54 L 114/66 04/23/24 11:50 97.7 F 54 L 04/23/24 11:22 97.9 F 55 L 18 119/68 04/23/24 08:00 04/23/24 07:23 59 L 04/23/24 07:12 97.9 F 57 L 17 114/66 Pulse Ox O2 Del Method 04/23/24 15:45 04/23/24 15:30 04/23/24 15:00 04/23/24 14:30 04/23/24 14:00 04/23/24 13:30 04/23/24 13:00 04/23/24 12:30 04/23/24 12:00 04/23/24 11:50 04/23/24 11:22 96 Room Air 04/23/24 08:00 Room Air 04/23/24 07:23 04/23/24 07:12 94 Room Air PG Care Time/CCT Total # of Minutes Spent Total Time Spent with Patient: Total time spent is greater than 50% in coordination of care (as documented) at patient's floor/unit and/or counseling patient: Coding Level of Care Code 86121 SUB INP/OBS CARE 2/35MIN Diagnoses Fluid overload E87.70 Acute hypoxic respiratory failure J96.01 Controlled type 2 diabetes mellitus with kidney complication, with long-term current use of insulin E11.29; Z79.4 Atrial fibrillation I48.91
[2024-04-24 07:32] LABS: Hematocrit (blood only) 34.1 % (42.0-52.0); Hemoglobin 10.8 g/dl (14.0-18.0); Mean Corpuscular Hemoglobin 30.7 pg (25.0-34.0); Mean Corpuscular Hgb Conc 31.7 g/dL (32.0-36.0); Mean Corpuscular Volume 96.9 fL (80.0-100.0); Mean Platelet Volume 10.7 fL (9.4-12.4); Platelet Count 242 K/uL (130-400); RDW Coefficient of Variation 16.5 % (11.5-14.5); RDW Standard Deviation 58.4 fL (36.4-46.3); Red Blood Count 3.52 M/uL (4.70-6.10); White Blood Count 5.63 K/ul (4.8-10.8)
--- NOTE | 2024-04-24 07:44 | History & Physical Report ---
Date of Service April 24, 2024 Assessment & Plan (1) Central venous catheter in place: Plan: Patient for removal of his permcath. I have discussed the risks options and benefits of the procedure with the patient. The patient understands the risks options and benefits and agrees to the procedure. Admission and Anticipated Discharge Date Admission Date: April 20, 2024 History of Present Illness Chief Complaint: S/P permcath insertion Primary Care Provider: Orly Dickson MD Patient is an 83yo male with a functioning fisltula. He no longer needs his permcath. Allergies Allergy/AdvReac Type Severity Reaction Status Date / Time latex Allergy Mild SKIN Verified 04/05/24 01:51 IRRITATION Home Medications Medication Instructions Recorded Confirmed Type flash glucose scanning reader 07/19/20 04/03/24 History (FreeStyle Ritchie 14 Day [place]) flash glucose sensor (FreeStyle 07/19/20 04/03/24 History Ritchie 14 Day Sensor kit) insulin syringe,safetyneedle 0.3 #700 ea 01/15/23 04/03/24 Rx mL 31 gauge x 15/64" (BD SafetyGlide Insulin Syringe) amoxicillin 500 mg capsule 2,000 mg PO DIRECTED PRN 1 HR 01/01/24 04/05/24 History PRIOR TO DENTAL PROCEDURES docusate sodium 100 mg tablet 200 mg PO HS 01/01/24 04/05/24 History metoprolol succinate 50 mg 75 mg PO HS 01/06/24 04/05/24 History tablet,extended release 24 hr furosemide 80 mg tablet 80 mg PO QAM #30 tabs 01/24/24 04/05/24 Rx insulin glargine 100 unit/mL (3 10 unit subcut BID 01/24/24 04/05/24 History mL) subcutaneous pen (Basaglar KwikPen U-100 Insulin) amiodarone 200 mg tablet 200 mg PO DAILY #90 tabs 02/15/24 04/05/24 Rx atorvastatin 80 mg tablet 80 mg PO QAM #90 tabs 02/26/24 04/05/24 Rx clopidogrel 75 mg tablet 75 mg PO DAILY #90 tabs 02/26/24 04/05/24 Rx pantoprazole 40 mg tablet,delayed 40 mg PO DAILYBB #90 tabs 03/04/24 04/05/24 Rx release insulin regular human 100 unit/mL See Rx Instructions .Route 03/12/24 04/05/24 Rx (3 mL) subcutaneous pen (Novolin R .COMPLEX #15 mL FlexPen) fluticasone propionate 50 1 spray intranasal BID #16 grams 04/03/24 04/05/24 Rx mcg/actuation nasal spray,suspension levothyroxine 50 mcg tablet 50 mcg PO DAILYBB #90 tabs 04/03/24 04/05/24 Rx multivitamin 1 tab PO DAILY #90 tabs 04/03/24 04/05/24 Rx tramadol 50 mg tablet 50 mg PO Q12H PRN pain #60 tabs 04/03/24 04/05/24 Rx quetiapine 25 mg tablet (Seroquel) 25 mg PO HS 04/04/24 04/05/24 History acetaminophen 325 mg tablet 325 mg PO Q4H PRN Pain, Mild 04/05/24 04/05/24 History apixaban 2.5 mg tablet (Eliquis) 2.5 mg PO Q12H 04/05/24 04/05/24 History sevelamer carbonate 800 mg tablet 800 mg PO TIDM 04/05/24 04/05/24 History triamcinolone acetonide 0.1 % 1 applic topical BID itching #80 04/07/24 Rx topical cream grams midodrine 2.5 mg tablet 2.5 mg PO TIDM #270 tabs 04/08/24 Rx pen needle, diabetic 31 gauge x #100 ea 04/15/24 Rx 3/16" (BD Ultra-Fine Mini Pen Needle) Past Med/Surg History Problem List (Updated 04/24/24 @ 07:44 by Stefan Godinez MD) Central venous catheter in place Fluid overload (Acute) End stage renal disease (Acute) Hypoxia (Acute) Acute hypoxic respiratory failure Dialysis AV fistula malfunction Physical deconditioning Ischemic cardiomyopathy (Acute) CAD (coronary artery disease) Hypotension (Acute) NSTEMI (non-ST elevated myocardial infarction) CKD (chronic kidney disease), stage V Dialysis AV fistula malfunction CKD (chronic kidney disease), stage IV Sleep disturbance Health care maintenance Hyperparathyroidism (Chronic) ASCVD (arteriosclerotic cardiovascular disease) Allergic rhinitis Mixed conductive and sensorineural hearing loss of right ear with restricted hearing of left ear Back pain Chronic otitis media of right ear with perforated tympanic membrane (Chronic) Generalized osteoarthritis Nephrolithiasis Coronary arteriosclerosis (Chronic) S/p angioplasty 1990 (no stent or hx of CABG) Sensorineural hearing loss (SNHL) of both ears No hearing aids Hypothyroidism (Chronic) Controlled type 2 diabetes mellitus with kidney complication, with long-term current use of insulin (Chronic) Hgb A1C 09/2022 was 7.7 BPH with obstruction/lower urinary tract symptoms Medical History Hemodialysis catheter malfunction Accelerated hypertension Acute hypoxemic respiratory failure Uremia Atrial fibrillation with rapid ventricular response High anion gap metabolic acidosis Cardiomyopathy Acute combined systolic and diastolic CHF, NYHA class 3 Shortness of breath Elevated troponin Closed head injury Acute lactic acidosis Acute hypoxemic respiratory failure Acute pulmonary edema Murmur Skin tear of left forearm without complication Skin tear of left elbow without complication Obesity Chronic renal insufficiency FOLLOWED BY DR. CORDOVA CKD V Acute pulmonary edema Ear drum perforation High blood urea nitrogen (BUN) COVID-19 Elevated troponin Pneumonia Acute kidney injury superimposed on CKD Acute AL ESRD (end stage renal disease) on dialysis Non-ST elevation AL (NSTEMI) Anemia NSTEMI (non-ST elevated myocardial infarction) Aug 2023 > cath > [facility] > no stents Atrial fibrillation pt unaware Dialysis patient [place] [facility] > M,W,F Pneumonia Sep 2023 > resolved per pt COVID-12 Oct 2023 > resolved Chronic kidney disease BPH (benign prostatic hyperplasia) Arteriovenous fistula Left AVF creation 11/2022- now has occlusion- reason for upcoming procedure History of kidney stones Glaucoma HX OF- S/P TREATMENT- NO CURRENT ISSUES Cyst of kidney, acquired Dyslipidemia Hypertension FOLLOWED BY DR. RAYO Obesity, Class II, BMI 35-39.9 Surgical History History of bilateral knee replacement History of cardiac cath Aug 2023 > cath > [facility] > no stents History of vascular access device right chest at present History of total right knee replacement H/O eye surgery RT/LEFT EYE FOR GLAUCOMA History of cataract surgery LEFT/RT History of total left knee replacement (TKR) X 2 History of lithotripsy a couple times History of tonsillectomy History of angioplasty at the age of 51 History of surgery scrotal hernia repair History of exploratory laparotomy History of umbilical hernia repair History of colonoscopy History of ear surgery Tympanic membrane repair--per pt a couple times Family History Father Cancer of kidney Hypertension Cardiac disorder Family/Other Cancer of kidney Bone cancer Mother Bone cancer Cardiac disorder Hypertension Other No family history of adverse response to anesthesia No family history of bleeding disorder Social History Smoking Status: Former smoker Tobacco Type: Cigarettes Second Hand Exposure: No; Do You Dip or Chew Tobacco: No; Hx Alcohol Use: Yes Alcohol type: wine Alcohol type Comment: occasional Hx Substance Use: No Preferred Language: Irish Communication Ability: Effective Visual Impairment: Limited Hearing Ability: Normal 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 [employer] Furnace Required: No Beliefs That Will Affect Care: Sabianist Sabianist Beliefs: evangelical marital status: / Current Living Situation: Other Current Living Situation Comment: [facility] current occupational status: employed 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 How many Children do You have: 1 How many Children do You have Comment: Stepdaughter, 2 grandchildren Feels Safe at Home: Yes Diet: regular caffeine: Yes during the past year weight has: remained stable Dental Care, Regularly: Yes Physical Activity Frequency: 5-6 Times per Week Seatbelt Use: always Sunscreen Use: No Assistive Devices: Glasses, Walker and Wheelchair Review of Systems All systems reviewed & are unremarkable except as noted in HPI & below Physical Exam Constitutional: WD/WN, vitals as above Respiratory: normal respiratory effort; no respiratory distress Auscultation: lungs clear to auscultation bilaterally Cardiovascular: RRR, no murmur, no edema Extremities: + AV fistula Chest (Breasts): Additional Comments: permcath in place Gastrointestinal (Abdomen): Inspection/Auscultation: abdomen normal to inspection Neurologic: CN's II-XI intact bilaterally and moves all extremities Psychiatric: Orientation: alert and oriented x 3 Results & Data Vital Signs (Past 12 Hours) Vital Signs Temp Pulse Pulse Resp BP Pulse Ox O2 Del Method 04/24/24 03:33 36.9 C 64 18 97/48 L 91 Room Air 04/23/24 23:06 36.5 C 58 L 18 109/64 97 Room Air 04/23/24 23:01 61 Code Status & VTE Plan VTE Prophylaxis Plan VTE Prophylaxis will be ordered: Yes
[2024-04-24] MEDS: INSULIN ASPART PER UNIT CHARGE SC SCH ×2 (07:55→17:24)
[2024-04-24 07:56] LABS: BUN Creatinine Ratio 8.7 (10-20); Calcium 9.6 mg/dl (8.6-10.3); Creatinine Clr Calc Pharmacy 14.7 ml/min; Est GFR (African American) 14.1 ml/min; Est GFR (Non-African American) 12.2 ml/min; Potassium 4.6 mmol/L (3.5-5.1)
--- NOTE | 2024-04-24 10:13 | Nephrology Progress Note ---
Date of Service April 24, 2024 Assessment & Plan (1) End stage renal disease: Plan: * Completed treatment yesterday with adequate UF and clearance. * Volume status controlled. * Outpatient HD Rx: MWF 3.5hr 2K 2Ca Na 137 HCO3 35 Qb 400 F-180NR. I have increased treatment time to 3:45 for added UF and clearance. * EDW 97.5 kg --> to be adjusted, Davin is now down to 94 kg. * AVF functioning well. TDC to be removed today. * Document strict I/O's. * Renal diet. Dietary sodium and fluid restriction reviewed. * Furosemide 80 mg daily to encourage urine output. (2) Dialysis AV fistula malfunction: Plan: * L BC AVF created 07/03/23 s/p fistulogram + CHEMIST ASSISTANT performed 04/04/[address] Godinez. * AVF has been successfully cannulated with 2 x 16g needles. * Vascular surgery consulted for catheter removal. (3) Acute hypoxic respiratory failure: Plan: * Patient presented w/ hypoxemia and volume overload. (4) Anemia: Plan: * Chronic, stable anemia. Epogen 15353 units provided with HD 04/21. Admission and Anticipated Discharge Date Admission Date: April 20, 2024 Subjective No acute events overnight. Davin tolerated HD well yesterday. No complications with treatment. He feels well today. Breathing comfortably. Review of Systems Review of Systems: All systems reviewed & are unremarkable except as noted in HPI & below Physical Exam Constitutional: well developed; no acute distress Eyes: + anicteric sclerae Neck: normal visual inspection Respiratory: normal respiratory effort; not tachypneic Auscultation: lungs clear to auscultation bilaterally Cardiovascular: Rate/Rhythm: regular rate Heart Sounds: normal S1, normal S2 and + murmur Extremities: + edema and + AV fistula (LUE) Musculoskeletal: Extremities: no cyanosis and no clubbing Skin: normal turgor; no lesions Neurologic: Motor/Sensory: no tremor and no asterixis Psychiatric: Orientation: alert and oriented x 3 Results & Data Vital Signs (Past 12 Hours) Vital Signs Temp Pulse Pulse Pulse Resp BP Pulse Ox 04/24/24 08:07 36.7 C 66 16 103/62 93 04/24/24 07:59 04/24/24 03:33 36.9 C 64 18 97/48 L 91 04/23/24 23:06 36.5 C 58 L 18 109/64 97 04/23/24 23:01 61 O2 Del Method 04/24/24 08:07 Room Air 04/24/24 07:59 Room Air 04/24/24 03:33 Room Air 04/23/24 23:06 Room Air 04/23/24 23:01 Laboratory Results Laboratory Results - last 24 hr 04/23/24 04/23/24 04/23/24 14:58 16:28 20:15 WBC RBC Hgb Hct MCV MCH MCHC RDW Std Deviation RDW Coeff of Aysha Plt Count MPV Sodium Potassium Chloride Carbon Dioxide Anion Gap BUN Creatinine Est Cr Clr Drug Dosing Est GFR ( Amer) Est GFR (Non-Af Amer) BUN/Creatinine Ratio Glucose POC Glucose 123 H 146 H 270 H Calcium 04/24/24 04/24/24 06:50 07:24 WBC 5.63 RBC 3.52 L Hgb 10.8 L Hct 34.1 L MCV 96.9 MCH 30.7 MCHC 31.7 L RDW Std Deviation 58.4 H RDW Coeff of Aysha 16.5 H Plt Count 242 MPV 10.7 Sodium 136 Potassium 4.6 Chloride 101 Carbon Dioxide 26 Anion Gap 9 BUN 37 H Creatinine 4.24 H D Est Cr Clr Drug Dosing 14.7 Est GFR ( Amer) 14.1 Est GFR (Non-Af Amer) 12.2 BUN/Creatinine Ratio 8.7 L Glucose 118 H POC Glucose 122 H Calcium 9.6 PG Care Time/CCT Total # of Minutes Spent Total Time Spent with Patient: Total time spent is greater than 50% in coordination of care (as documented) at patient's floor/unit and/or counseling patient: Coding Level of Care Code 06010 SUB INP/OBS CARE 3/50MIN Diagnoses End stage renal disease N18.6 Dialysis AV fistula malfunction T82.590A Acute hypoxic respiratory failure J96.01 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
[2024-04-24] MEDS ORDERED: Nursing to Pharmacy Communication SCH ×2 (10:45→16:45)
--- NOTE | 2024-04-24 14:37 | Pre Anesthesia Assessment ---
Date of Service April 24, 2024 Pre Sedation Assessment Vital Signs Temp Pulse Pulse Pulse Resp BP BP 04/24/24 14:24 36.7 C 71 20 110/66 04/24/24 12:01 36.3 C L 70 14 123/66 04/24/24 08:07 36.7 C 66 16 103/62 04/24/24 08:00 72 04/24/24 07:59 04/24/24 03:33 36.9 C 64 18 97/48 L 04/23/24 23:06 36.5 C 58 L 18 109/64 04/23/24 23:01 61 04/23/24 19:36 36.9 C 56 L 20 111/56 L 04/23/24 16:38 36.5 C 66 18 118/69 04/23/24 15:45 36.5 C 63 116/69 04/23/24 15:30 59 L 99/59 L 04/23/24 15:00 61 103/61 Pulse Ox O2 Del Method 04/24/24 14:24 95 Room Air 04/24/24 12:01 97 Room Air 04/24/24 08:07 93 Room Air 04/24/24 08:00 04/24/24 07:59 Room Air 04/24/24 03:33 91 Room Air 04/23/24 23:06 97 Room Air 04/23/24 23:01 04/23/24 19:36 95 Room Air 04/23/24 16:38 96 Room Air 04/23/24 15:45 04/23/24 15:30 04/23/24 15:00 Cardiovascular RRR, no murmur, no edema Respiratory normal respiratory effort, lungs clear to auscultation Pre-Sedation Airway Assessment Smoking Status: Former smoker Hx Sleep Apnea: No Hx Difficult Intubation: No Short, Thick Neck: No Thyromental Distance: > or= 3.5 Finger Breadths Oral Cavity: + Dentures Mallampati Class: II ASA: ASA3 NPO Status Date of Last Intake of Fluids: 04/23/24 Time of Last Intake of Fluids: 23:00 Date of Last Intake of Solid Food: 04/23/24 Time of Last Intake of Solid Foods: 23:00 Procedure Planning Contraindications for Sedation: none Current Medications Reviewed: Yes Notes The planned sedation has been discussed with the patient. Informed Consent was obtained. I have identified the patient, determined the appropriateness of sedation and have assessed the patient immediately prior to the procedure. All medicine(s) and interventions are by my order.
[2024-04-24] MEDS: LIDOCAINE 1% LOCAL 20 ML VIAL ONE (14:55)
--- NOTE | 2024-04-24 15:03 | Operative Report ---
Post Operative Report Pre & Post Diagnosis Operation Date: 04/24/24 15:20 Pre-Op Diagnosis: Functioning Fistula Post-Op Diagnosis: Functioning Fistula I identified the patient and participated in the time-out.: Yes Procedure Operation Date: 04/24/24 15:20 Actual Procedures p Removal of Perm Catheter, Moderate Sedation [id number](Right) - Stefan Godinez MD Surgeon Stefan Godinez MD Warehouse Checker None Estimated Blood Loss 0 Findings Consistent with Post-Op Diagnosis Specimens none Anesthesia Type RN Sedation Complications none Disposition Accompanied Patient To Recovery: No Disposition: Recovery Room Indications This is a 83-year-old gentleman with a PermCath in place. He knows a functioning fistula and is here for his PermCath removal. I have discussed the risks options and benefits of the procedure with the patient. The patient understands the risks options and benefits and agrees to the procedure. Description of Procedure The patient was taken to the angio suite and placed in the supine position. The patient was identified and a timeout performed. The right side of the neck, chest wall and catheter were prepped and draped in a sterile manner. Local anesthesia was then accomplished. Using sharp and blunt dissection, the cuff of the permcath was freed up from the surrounding fibrous tissue. The permcath and cuff were completely removed. Pressure was then applied and adequate hemostasis was obtained. A sterile dressing was then applied. The patient left the operation room in satisfactory condition and tolerated the procedure well. All needle and sponge counts were correct at the end of the procedure. I attest to the content of the Intraoperative Record and any orders documented therein. Any exceptions are noted below.
[2024-04-24] MEDS: fentaNYL citrate PF 100 MCG/2 ML VIAL ONE (15:41)
[2024-04-24] MEDS: MIDAZOLAM HCL 1 MG/ML 2ML VIAL ONE (15:43)
--- NOTE | 2024-04-24 16:09 | Discharge Summary ---
Discharge Summary Date of Service April 24, 2024 Principal Dx & Hospital Course #1 = Principal Diagnosis (1) Fluid overload: Unclear etiology but flash pulmonary occurred in setting of ESRD on dialysis Despite ESRD on dialysis he produces some urine there he did recieve lasix on day 1. [facility] 09/19/23 severe obstructive CAD involving LAD and Circumflex, not ammenable to intervention at that time echocardiogram in the past with EF 50% and inf RWMA, could be acute diastolic failure harkened on by rhinovirus infection and increased physiologic work load from infection Consult nephrology for management of ESRD, Consult vascular surgery for permacath removal - pt reports this is due to be removed Continue Sevelamer tunnel cath removal 04/24/24 as using fistulae (2) Acute hypoxic respiratory failure: Hypoxia with hypercapnia, Secondary to flash pulmonary edema Biofire PCR enterovirus rhino viirus, maybe initial cause of sob Patient requesting tramadol for pain and he takes this chronically therefore will continue this (3) Controlled type 2 diabetes mellitus with kidney complication, with long-term current use of insulin: HbA1C not 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 in ESRD on dialysis Glucose 405 on admission A1c 8.5 returns to basal bolus as prehospital doses (4) Atrial fibrillation: Pt with Afib on admission in winter-, on amiodarone, metoprolol and eliquis renal dose For CAD on plavix and atorvastatin additionally Plan VTE Prophylaxis - Eliquis Patient return to assisted living [facility] once hospital stay is complete Notes For Next Care Provider pt may need to have fluid status managed by dialysis, neprhology can determine if lasix is needed in the future Admission HPI Per Admitting Provider Patient is an 83yo male with a functioning fisltula. He no longer needs his permcath. Discharge Exam pt is awake and alert no distress lungs with some rales at the bases Updated Medication List Medication Instructions Recorded Confirmed Type flash glucose scanning reader 07/19/20 04/03/24 History (FreeStyle Ritchie 14 Day [place]) flash glucose sensor (FreeStyle 07/19/20 04/03/24 History Ritchie 14 Day Sensor kit) insulin syringe,safetyneedle 0.3 #700 ea 01/15/23 04/03/24 Rx mL 31 gauge x 15/64" (BD SafetyGlide Insulin Syringe) amoxicillin 500 mg capsule 2,000 mg PO DIRECTED PRN 1 HR 01/01/24 04/05/24 History PRIOR TO DENTAL PROCEDURES docusate sodium 100 mg tablet 200 mg PO HS 01/01/24 04/05/24 History metoprolol succinate 50 mg 75 mg PO HS 01/06/24 04/05/24 History tablet,extended release 24 hr furosemide 80 mg tablet 80 mg PO QAM #30 tabs 01/24/24 04/05/24 Rx insulin glargine 100 unit/mL (3 10 unit subcut BID 01/24/24 04/05/24 History mL) subcutaneous pen (Basaglar KwikPen U-100 Insulin) amiodarone 200 mg tablet 200 mg PO DAILY #90 tabs 02/15/24 04/05/24 Rx atorvastatin 80 mg tablet 80 mg PO QAM #90 tabs 02/26/24 04/05/24 Rx clopidogrel 75 mg tablet 75 mg PO DAILY #90 tabs 02/26/24 04/05/24 Rx pantoprazole 40 mg tablet,delayed 40 mg PO DAILYBB #90 tabs 03/04/24 04/05/24 Rx release insulin regular human 100 unit/mL See Rx Instructions .Route 03/12/24 04/05/24 Rx (3 mL) subcutaneous pen (Novolin R .COMPLEX #15 mL FlexPen) fluticasone propionate 50 1 spray intranasal BID #16 grams 04/03/24 04/05/24 Rx mcg/actuation nasal spray,suspension levothyroxine 50 mcg tablet 50 mcg PO DAILYBB #90 tabs 04/03/24 04/05/24 Rx multivitamin 1 tab PO DAILY #90 tabs 04/03/24 04/05/24 Rx tramadol 50 mg tablet 50 mg PO Q12H PRN pain #60 tabs 04/03/24 04/05/24 Rx quetiapine 25 mg tablet (Seroquel) 25 mg PO HS 04/04/24 04/05/24 History acetaminophen 325 mg tablet 325 mg PO Q4H PRN Pain, Mild 04/05/24 04/05/24 History apixaban 2.5 mg tablet (Eliquis) 2.5 mg PO Q12H 04/05/24 04/05/24 History sevelamer carbonate 800 mg tablet 800 mg PO TIDM 04/05/24 04/05/24 History triamcinolone acetonide 0.1 % 1 applic topical BID itching #80 04/07/24 Rx topical cream grams midodrine 2.5 mg tablet 2.5 mg PO TIDM #270 tabs 04/08/24 Rx pen needle, diabetic 31 gauge x #100 ea 04/15/24 Rx 3/16" (BD Ultra-Fine Mini Pen Needle) Hospital Stay Data Consultations 04/20/24 18:27 ED Decision to Admit Stat 04/20/24 18:42 Consult Nephrology Routine 04/20/24 19:25 Consult Vascular Surgery Routine Procedures Performed Operation Date: 04/24/24 15:20 Actual Procedures p Removal of Perm Catheter, Moderate Sedation [id number](Right) - Stefan Godinez MD Pending Results Patient Have Any Pending Studies at Discharge: No Discharge Instructions Given to Patient (Per Discharging Provider) Please be sure to try to watch your salt intake in your food, consider follow up with nephrology if you find you are gaining weight as you may need more fluid off with your treatments Dr Snow has arranged that you will have your catheter removed in april by Dr Godinez Total Time Total Time Spent Total Time Spent (In Minutes): It required greater than 30 minutes to prepare this patient for discharge. Coding Level of Care Code 22798 INP/OBS DISCH >30 MIN Diagnoses Fluid overload E87.70 Acute hypoxic respiratory failure J96.01 Controlled type 2 diabetes mellitus with kidney complication, with long-term current use of insulin E11.29; Z79.4 Atrial fibrillation I48.91
--- NOTE | 2024-04-25 08:10 | Post Anesthesia Assessment ---
Date of Service April 25, 2024 Post Sedation Assessment Vital Signs Temp Pulse Pulse Pulse Pulse Resp BP 04/24/24 18:22 36.8 C 55 L 75 71 18 139/80 04/24/24 16:49 71 04/24/24 16:36 75 139/80 04/24/24 15:32 36.8 C 55 L 70 71 18 112/65 04/24/24 15:19 36.8 C 71 18 112/65 04/24/24 15:04 72 18 117/63 04/24/24 14:59 72 16 125/73 04/24/24 14:54 72 17 138/71 04/24/24 14:50 70 18 139/77 04/24/24 14:24 36.7 C 71 20 110/66 04/24/24 12:01 36.3 C L 70 14 123/66 Pulse Ox O2 Del Method O2 Flow Rate 04/24/24 18:22 97 04/24/24 16:49 04/24/24 16:36 97 Room Air 04/24/24 15:32 96 04/24/24 15:19 96 Room Air 04/24/24 15:04 96 Room Air 04/24/24 14:59 92 Oxymask 4 04/24/24 14:54 94 Oxymask 4 04/24/24 14:50 95 Room Air 04/24/24 14:24 95 Room Air 04/24/24 12:01 97 Room Air Recovery Score Activity: Moves 4 extremities Respiration: Deep Breath/Cough Circulation: +/-20% PreAnes Value Consciousness: Arouseable (by name) Oxygen Saturation: > 92% On Room Air Post Anesthesia Score: 9 Discharge Sedation Level of Care: Fast Track Phase II Post Sedation Plan On clinical assessment, the patient appears to have tolerated the sedation without complications. Patient is recovering as anticipated. Patient will continue to be monitored by nursing and may be discharged when sedation discharge criteria are met per below protocol. Upon Completions of procedure up to 15 minutes continue every 5 minute vital signs and the P.A.R. score; then discharge to a Phase I or Fast Track to Phase II per the following guidelines: * Discharge Patient to appropriate Phase II area if PAR is 8 or greater or return to pre- procedure baseline. The post - procedure orders will be as directed. * If PAR score is less than 8 or not return to pre-procedure baseline then patient will follow Phase I monitoring till PAR is reached for Phase II. The Phase I may be done in procedure room or may call to secure a Phase I area. * If naloxone or flumazenil are used for reversal, hold in Phase I for continued monitoring from when last reversal dose was given for a minimum of 60 minutes or longer pending the nurse and/or physician discretion of patient condition before discharge to Phase II. Please call the Sedation Physician to re-evaluate and complete post-note for discharge to Phase II area. Do NOT discharge from procedure sedation or Phase 1 until post- sedation evaluation note is complete by procedure /sedation MD Sedation Discharge Instructions to be given to the patient at discharge to home.
== END 2024-04-24 18:55 | disposition home or self-care (01) | DRG 291 ==
LOC: ED 17:43 → SUATTDRO 19:05 → 2S 19:05

== ENCOUNTER 2024-06-29 20:03 | Inpatient (IN) ==
--- NOTE | 2024-06-29 20:14 | Emergency Department Note ---
Impression & Plan Acute hypoxemic respiratory failure, Non-ST elevation VT (NSTEMI), Pulmonary edema, ESRD on dialysis, Elevated lactic acid level, Elevated brain natriuretic peptide (BNP) level, Hyperglycemia ED Provider Note HISTORY OF PRESENT ILLNESS: Patient is an 84-year-old male presenting with acute onset of shortness of breath. Patient reports that just after dinner at around 1830 this evening he became very short of breath. He called for help and nurses at his facility then called 911. Patient had saturations in the 60s on room air on EMS arrival. He was placed on CPAP and given 1 sublingual nitro with some slight improvement in his tachypnea. Patient is an ESRD patient and gets dialyzed on Wednesdays and Fridays. He reports his last dialysis was on Sunday. He does still make urine. He denies any chest pain. Denies any recent fevers or cough. He denies any abdominal pain, nausea or vomiting. He reports he feels improved on the CPAP. Patient reports he is DNR/DNI and would not want a breathing tube. ROS: as above PHYSICAL EXAM: Constitutional: Patient appears in no acute distress. HENT: Head: Normocephalic and atraumatic. Eyes: EOMI, PERRL Mouth/Throat: Mucous membranes moist. Neck: Trachea midline. Neck supple. Cardiovascular: RRR, No murmurs, rubs or gallops. Intact distal pulses. Pulmonary/Chest: Patient is tachypneic. Breath sounds equal bilaterally but he has rales throughout bilateral lung fontana. He is having intercostal retractions and abdominal breathing. Patient on CPAP with EMS. Abdominal: Abdomen soft, no tenderness, rebound or guarding. Musculoskeletal: No edema, tenderness or deformity noted. Skin: Warm and dry. No rash, erythema, pallor or cyanosis Psychiatric: Appropriate mood and affect for situation. Neurological: Alert and keenly responsive. CN II-XII grossly intact, moving all extremities equally and fully. MDM: - Vitals signs showed hypertension and tachypnea. - History obtained via patient and EMS. History as above. - Chronic conditions affecting care: DM-1; CAD; ESRD; CAD; hypothyroidism; hyperparathyroidism - Differential diagnoses include, but are not limited to: Congestive heart failure; acute coronary syndrome; COPD/asthma exacerbation; pulmonary edema; pulmonary embolism; pneumonia; pneumothorax; viral syndrome - Order placed for continuous cardiac monitoring. At this time, monitor showed rate of 76 bpm with normal sinus rhythm, per my interpretation. - External medical records reviewed. Discharge summary dated 04/24/2024 was reviewed. Patient was admitted that time due to fluid overload. Concern for flash pulmonary edema occurred in the setting of ESRD on dialysis. - EKG interpreted by myself showed normal sinus rhythm. Rate 78 bpm. QT 420. No acute ischemic changes. Noted have a right bundle branch block. - Initial ABG on patient's arrival to the emergency department was a acidosis with a pH of 7.248. pCO2 48.8. - Laboratory workup interpreted by myself showed normal WBC; normal PT/INR; hyponatremia (Na 134); elevated anion gap (18); ESRD (Cr 6.43); elevated lactate (3.2); hyperglycemia (glucose 463); elevated BNP (944); elevated troponin (88.9) - CXR showed some bilateral pulmonary vascular congestion, per my interpretation. Noted to have what looks like some pulmonary edema to the left mid lobe. - Repeat troponin down to 2.7 - Viral respiratory panel negative - Repeat ABG showed some improving acidosis with a pH of 7.3. - UA noted to have WBCs and leukocyte esterase - Patient given 20 mg IV lasix in ER. - Danielson catheter inserted. - On reassessment, patient appears much more comfortable on the BiPAP. No longer having any retractions. He is alert and oriented. - Discussion was had with leather case finisher about patient's case and need for admission - Hospitalist, Dr. Cruz, consulted for admission - [facility]. I have personally spent 49 minutes of critical care time in the direct management of this patient. This includes bedside care, interpretation of diagnostic studies, and testing, discussion with consultants, patient, and family members, and other required patient management activities. This 49 minutes is in excess of all separately billable procedures. ASSESSMENT AND PLAN: Diagnosis: Acute hypoxic respiratory failure; pulmonary edema; elevated lactic acid; NSTEMI; hyperglycemia; ESRD on dialysis; elevated BNP Plan: Admit Past Med/Surg History Problem List (Updated 06/29/24 @ 23:40 by Betina Calderón MD) Hyperglycemia (Acute) Elevated brain natriuretic peptide (BNP) level (Acute) Elevated lactic acid level (Acute) ESRD on dialysis (Acute) Pulmonary edema (Acute) Non-ST elevation VT (NSTEMI) (Acute) Acute hypoxemic respiratory failure (Acute) Irritation of skin of perianal region Uncontrolled type 1 diabetes mellitus with kidney complication, with long-term current use of insulin Central venous catheter in place Fluid overload (Acute) End stage renal disease (Acute) Hypoxia (Acute) Acute hypoxic respiratory failure Dialysis AV fistula malfunction Physical deconditioning Ischemic cardiomyopathy (Acute) CAD (coronary artery disease) Hypotension (Acute) NSTEMI (non-ST elevated myocardial infarction) CKD (chronic kidney disease), stage V Dialysis AV fistula malfunction CKD (chronic kidney disease), stage IV Sleep disturbance Health care maintenance Hyperparathyroidism (Chronic) ASCVD (arteriosclerotic cardiovascular disease) Allergic rhinitis Mixed conductive and sensorineural hearing loss of right ear with restricted hearing of left ear Back pain Chronic otitis media of right ear with perforated tympanic membrane (Chronic) Generalized osteoarthritis Nephrolithiasis Coronary arteriosclerosis (Chronic) S/p angioplasty 1990 (no stent or hx of CABG) Sensorineural hearing loss (SNHL) of both ears No hearing aids Hypothyroidism (Chronic) Controlled type 2 diabetes mellitus with kidney complication, with long-term current use of insulin (Chronic) Hgb A1C 09/2022 was 7.7 BPH with obstruction/lower urinary tract symptoms Medical History (Updated 06/29/24 @ 23:40 by Betina Calderón MD) Hemodialysis catheter malfunction Accelerated hypertension Acute hypoxemic respiratory failure Uremia Atrial fibrillation with rapid ventricular response High anion gap metabolic acidosis Cardiomyopathy Acute combined systolic and diastolic CHF, NYHA class 3 Shortness of breath Closed head injury Acute hypoxemic respiratory failure Acute pulmonary edema Murmur Skin tear of left forearm without complication Skin tear of left elbow without complication Obesity Chronic renal insufficiency FOLLOWED BY DR. CORDOVA CKD V Acute pulmonary edema Ear drum perforation High blood urea nitrogen (BUN) Elevated troponin Acute kidney injury superimposed on CKD Acute VT ESRD (end stage renal disease) on dialysis [facility] M/W/F NSTEMI (non-ST elevated myocardial infarction) Aug 2023 > cath > [facility] > no stents Pneumonia Sep 2023 > resolved per pt COVID-12 Oct 2023 > resolved BPH (benign prostatic hyperplasia) Arteriovenous fistula Left AVF creation 11/2022- now has occlusion- reason for upcoming procedure History of kidney stones Glaucoma HX OF- S/P TREATMENT- NO CURRENT ISSUES Cyst of kidney, acquired Dyslipidemia Hypertension FOLLOWED BY DR. RAYO Obesity, Class II, BMI 35-39.9 Surgical History History of bilateral knee replacement History of cardiac cath Aug 2023 > cath > [facility] > no stents History of vascular access device right chest at present History of total right knee replacement H/O eye surgery RT/LEFT EYE FOR GLAUCOMA History of cataract surgery LEFT/RT History of total left knee replacement (TKR) X 2 History of lithotripsy a couple times History of tonsillectomy History of angioplasty at the age of 51 History of surgery scrotal hernia repair History of exploratory laparotomy History of umbilical hernia repair History of colonoscopy History of ear surgery Tympanic membrane repair--per pt a couple times Family History Father Cancer of kidney Hypertension Cardiac disorder Family/Other Cancer of kidney Bone cancer Mother Bone cancer Cardiac disorder Hypertension Other No family history of adverse response to anesthesia No family history of bleeding disorder Social History Smoking Status: Current some day smoker Tobacco Type: Cigarettes Second Hand Exposure: No; Do You Dip or Chew Tobacco: No; Hx Alcohol Use: Yes Alcohol type: wine Alcohol type Comment: occasional Hx Substance Use: No Preferred Language: Frisian Communication Ability: Effective Visual Impairment: Limited Hearing Ability: Normal 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: No Beliefs That Will Affect Care: Yarsanism Yarsanism Beliefs: mormon marital status: / Current Living Situation: Other Current Living Situation Comment: [facility] current occupational status: employed 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 How many Children do You have: 1 How many Children do You have Comment: Stepdaughter, 2 grandchildren Feels Safe at Home: Yes Diet: regular caffeine: Yes during the past year weight has: remained stable Dental Care, Regularly: Yes Physical Activity Frequency: 5-6 Times per Week Seatbelt Use: always Sunscreen Use: No Assistive Devices: Glasses, Walker and Wheelchair Allergies Allergies Allergy/AdvReac Type Severity Reaction Status Date / Time latex Allergy Mild SKIN Verified 06/24/24 13:29 IRRITATION No Known Drug Allergies Allergy Verified 06/24/24 13:29 Home Meds Home Medications Medication Instructions Recorded Confirmed flash glucose scanning reader 07/19/20 06/12/24 (FreeStyle Ritchie 14 Day Martin) flash glucose sensor (FreeStyle 07/19/20 06/12/24 Ritchie 14 Day Sensor kit) amoxicillin 500 mg capsule 2,000 mg PO DIRECTED PRN 1 HR 01/01/24 06/24/24 PRIOR TO DENTAL PROCEDURES docusate sodium 100 mg tablet 200 mg PO HS 01/01/24 06/29/24 insulin glargine 100 unit/mL (3 12 unit subcut BID 01/24/24 06/29/24 mL) subcutaneous pen (Basaglar KwikPen U-100 Insulin) quetiapine 25 mg tablet (Seroquel) 25 mg PO HS 04/04/24 06/29/24 apixaban 2.5 mg tablet (Eliquis) 2.5 mg PO Q12H 04/05/24 06/29/24 sevelamer carbonate 800 mg tablet 800 mg PO TIDM 04/05/24 06/29/24 acetaminophen 325 mg tablet 325 mg PO Q6H PRN Pain 06/24/24 06/29/24 furosemide 80 mg tablet 80 mg PO DAILY 06/29/24 06/29/24 Previous Rx's Medication Instructions Recorded insulin syringe,safety needle 0.3 #700 ea 01/15/23 mL 31 gauge x 15/64" (BD SafetyGlide Insulin Syringe) amiodarone 200 mg tablet 200 mg PO DAILY #90 tabs 02/15/24 atorvastatin 80 mg tablet 80 mg PO QAM #90 tabs 02/26/24 clopidogrel 75 mg tablet 75 mg PO DAILY #90 tabs 02/26/24 pantoprazole 40 mg tablet,delayed 40 mg PO DAILYBB #90 tabs 03/04/24 release insulin regular human 100 unit/mL See Rx Instructions .Route 03/12/24 (3 mL) subcutaneous pen (Novolin R .COMPLEX #15 mL FlexPen) fluticasone propionate 50 1 spray intranasal BID #16 grams 04/03/24 mcg/actuation nasal spray,suspension levothyroxine 50 mcg tablet 50 mcg PO DAILYBB #90 tabs 04/03/24 multivitamin 1 tab PO DAILY #90 tabs 04/03/24 tramadol 50 mg tablet 50 mg PO Q12H PRN pain #60 tabs 04/03/24 triamcinolone acetonide 0.1 % 1 applic topical BID itching #80 04/07/24 topical cream grams midodrine 2.5 mg tablet 2.5 mg PO TIDM #270 tabs 04/08/24 metoprolol succinate 50 mg 75 mg (1.5 x 50 mg) PO HS #90 tabs 04/25/24 tablet,extended release 24 hr menthol 0.44 %-zinc oxide 20.6 % See Rx Instructions topical 05/13/24 topical ointment (Calmoseptine) .COMPLEX PRN skin irritation #113 grams ofloxacin 0.3 % ear drops 5 drp otic (ear) BID 14 days #10 mL 05/20/24 insulin regular human 100 unit/mL See Rx Instructions subcut Q6H PRN 06/03/24 injection solution (Novolin R hyperglycemia #30 mL Regular U-100 Insulin) insulin syringe-needle U-100 0.3 #100 ea 06/03/24 mL 31 gauge x 5/16" (BD Insulin Syringe Ultra-Fine) pen needle, diabetic 31 gauge x #200 ea 06/03/24 3/16" (BD Ultra-Fine Mini Pen Needle) pen needle, diabetic 32 gauge x #600 ea 06/03/24 5/32" (BD Maxine 2nd Gen Pen Needle) Results & Data (ED) Vital Signs Vital Signs - 24 hr 06/29/24 20:05 06/29/24 20:05 06/29/24 20:07 Temperature 36.7 C Temperature Source Axillary Pulse Rate 73 81 Pulse Rate from SpO2 Sensor Respiratory Rate 28 H Respiratory Effort / Characteristics Respiratory Depth Respiratory Pattern Blood Pressure 152/77 H Blood Pressure Mean 102 Pulse Oximetry 97 97 Oxygen Delivery Method CPAP CPAP Fraction of Inspired Oxygen Sepsis Recent Fever Within 48 Hours No Sepsis New/Unexplained Change in Mental Status N/A Sepsis Action Taken by Nursing No Action Required 06/29/24 20:10 06/29/24 20:17 06/29/24 20:30 Temperature Temperature Source Pulse Rate 79 74 Pulse Rate from SpO2 Sensor Respiratory Rate 33 H 20 Respiratory Effort / Characteristics Spontaneous Respiratory Depth Normal Respiratory Pattern Regular Blood Pressure 117/68 Blood Pressure Mean 84 Pulse Oximetry 97 97 98 Oxygen Delivery Method CPAP Fraction of Inspired Oxygen 70 Sepsis Recent Fever Within 48 Hours Sepsis New/Unexplained Change in Mental Status Sepsis Action Taken by Nursing 06/29/24 21:20 06/29/24 22:00 06/29/24 23:00 Temperature Temperature Source Pulse Rate 76 82 70 Pulse Rate from SpO2 Sensor 70 Respiratory Rate 18 20 Respiratory Effort / Characteristics Respiratory Depth Respiratory Pattern Blood Pressure 105/61 136/76 132/79 Blood Pressure Mean 75 104 96 Pulse Oximetry 100 95 96 Oxygen Delivery Method CPAP Fraction of Inspired Oxygen Sepsis Recent Fever Within 48 Hours Sepsis New/Unexplained Change in Mental Status Sepsis Action Taken by Nursing 06/29/24 23:17 Temperature Temperature Source Pulse Rate 71 Pulse Rate from SpO2 Sensor Respiratory Rate 19 Respiratory Effort / Characteristics Non-Labored Spontaneous Respiratory Depth Normal Respiratory Pattern Regular Blood Pressure Blood Pressure Mean Pulse Oximetry 96 Oxygen Delivery Method Fraction of Inspired Oxygen 40 Sepsis Recent Fever Within 48 Hours Sepsis New/Unexplained Change in Mental Status Sepsis Action Taken by Nursing Laboratory Data 06/29/24 20:14 06/29/24 20:14 Lab Results 06/29/24 06/29/24 06/29/24 Range/Units 20:14 20:15 21:40 WBC 10.48 (4.8-10.8) K/ul RBC 4.21 L (4.70-6.10) M/uL Hgb 12.6 L (14.0-18.0) g/dl POC Hgb 13.9 L (14.0-18.0) g/dl Hct 41.1 L (42.0-52.0) % POC Hct 41 L (42-52) % MCV 97.6 (80.0-100.0) fL MCH 29.9 (25.0-34.0) pg MCHC 30.7 L (32.0-36.0) g/dL RDW Std Deviation 55.3 H (36.4-46.3) fL RDW Coeff of Aysha 15.4 H (11.5-14.5) % Plt Count 229 (130-400) K/uL MPV 11.5 (9.4-12.4) fL Immature Gran % (Auto) 0.7 % Neut % (Auto) 67.5 % Lymph % (Auto) 22.4 % [place] % (Auto) 7.4 % Eos % (Auto) 1.5 % Baso % (Auto) 0.5 % Neut # (Auto) 7.07 H (1.40-6.50) K/uL Lymph # (Auto) 2.35 (1.20-3.40) K/uL [place] # (Auto) 0.78 H (0.11-0.59) K/uL Eos # (Auto) 0.16 (0.00-0.50) K/uL Baso # (Auto) 0.05 (0.00-0.20) K/uL Immature Gran # (Auto) 0.07 (0.01-0.20) K/uL PT 10.9 (9.0-12.0) Seconds INR 1.0 (0.9-1.1) POC pH 7.25 L (7.35-7.45) POC pCO2 49 H (35-46) mmHg POC pO2 99 H (80-95) mmHg POC HCO3 21 (19-24) prema/L POC Total CO2 23 L (24-31) mmol/L POC Base Excess -6.0 (-9-1.8) prema/L ABG pH (7.35-7.45) ABG pCO2 (35-46) mmHg ABG pO2 (80-95) mmHg ABG HCO3 (19-24) mmol/L POC ABG O2 Sat 96.0 H (90-95) % ABG O2 Saturation (90-95) % ABG Base Excess (-9-1.8) mEq/L Aniket Test (Pos) Oxygen Given POC Sodium 133 L (135-144) mmol/L Sodium 134 L (136-145) mmol/L POC Potassium 4.3 (3.3-5.0) mmol/L Potassium 4.2 (3.5-5.1) mmol/L Chloride 93 L (98-107) mmol/L Carbon Dioxide 23 (21-32) mmol/L Anion Gap 18 H (3-11) BUN 84 H (6-23) mg/dl Creatinine 6.43 H* (0.6-1.4) mg/dl Est Cr Clr Drug Dosing 10.1 ml/min eGFR 8.00 BUN/Creatinine Ratio 13.1 (10-20) Glucose 463 H* (70-99(Fasting)) mg/dl Lactate 3.2 H* (0.4-2.0) mmol/L Calcium 8.9 (8.6-10.3) mg/dl Magnesium 1.9 (1.7-2.4) mg/dl Total Bilirubin 0.4 (0.2-1.0) mg/dl AST 12 L (13-39) U/L ALT 12 (7-52) U/L Alkaline Phosphatase 194 H (34-104) U/L Troponin I High Sens 88.9 H* (0-20) pg/ml B-Natriuretic Peptide 944 H (0-100) pg/ml Total Protein 8.0 (6.0-8.3) gm/dl Albumin 4.4 (3.4-5.0) gm/dl Globulin 3.6 (2.5-4.0) gm/dl Albumin/Globulin Ratio 1.2 (0.9-2) Urine Color Yellow Urine Appearance Cloudy A (Clear) Urine pH 7.0 (4.5-7.5) Ur Specific [place] 1.014 (1.000-1.030) Urine Protein 2+ H (Negative) Urine Glucose (UA) 3+ H (Negative) Urine Ketones Negative (Negative) Urine Blood 2+ H (Negative) Urine Nitrite Negative (Negative) Urine Bilirubin Negative (Negative) Urine Urobilinogen Negative (Negative) Ur Leukocyte Esterase 3+ H (Negative) Urine WBC (Auto) >50 H (0-5) /hpf Urine RBC (Auto) >20 H (0-2) /hpf U Hyaline Cast (Auto) 0-2 (0-2) /lpf U Epithel Cells (Auto) 0-2 (0-2) /hpf Urine Bacteria (Auto) None Seen (None Seen) Adenovirus (PCR) Not Detected (NotDetected) B. pertussis DNA (PCR) Not Detected (NotDetected) B.parapertussis DNA PCR Not Detected (NotDetected) C. pneumoniae DNA (PCR) Not Detected (NotDetected) Coronavirus OC43 (PCR) Not Detected (NotDetected) Coronavirus HKU1 (PCR) Not Detected (NotDetected) Coronavirus 229E (PCR) Not Detected (NotDetected) SARS-CoV-2 (PCR) Not Detected (NotDetected) Coronavirus NL63 (PCR) Not Detected (NotDetected) Human Metapneumovir PCR Not Detected (NotDetected) Influenza Type A (PCR) Not Detected (NotDetected) Influenza Type B (PCR) Not Detected (NotDetected) M. pneumoniae (PCR) Not Detected (NotDetected) Parainfluenza 1 (PCR) Not Detected (NotDetected) Parainfluenza 2 (PCR) Not Detected (NotDetected) Parainfluenza 3 (PCR) Not Detected (NotDetected) Parainfluenza 4 (PCR) Not Detected (NotDetected) RSV (PCR) Not Detected (NotDetected) Entero/Rhino (PCR) Not Detected (NotDetected) 06/29/24 06/29/24 Range/Units 22:42 Unknown WBC (4.8-10.8) K/ul RBC (4.70-6.10) M/uL Hgb (14.0-18.0) g/dl POC Hgb (14.0-18.0) g/dl Hct (42.0-52.0) % POC Hct (42-52) % MCV (80.0-100.0) fL MCH (25.0-34.0) pg MCHC (32.0-36.0) g/dL RDW Std Deviation (36.4-46.3) fL RDW Coeff of Aysha (11.5-14.5) % Plt Count (130-400) K/uL MPV (9.4-12.4) fL Immature Gran % (Auto) % Neut % (Auto) % Lymph % (Auto) % [place] % (Auto) % Eos % (Auto) % Baso % (Auto) % Neut # (Auto) (1.40-6.50) K/uL Lymph # (Auto) (1.20-3.40) K/uL [place] # (Auto) (0.11-0.59) K/uL Eos # (Auto) (0.00-0.50) K/uL Baso # (Auto) (0.00-0.20) K/uL Immature Gran # (Auto) (0.01-0.20) K/uL PT (9.0-12.0) Seconds INR (0.9-1.1) POC pH (7.35-7.45) POC pCO2 (35-46) mmHg POC pO2 (80-95) mmHg POC HCO3 (19-24) prema/L POC Total CO2 (24-31) mmol/L POC Base Excess (-9-1.8) prema/L ABG pH 7.30 L (7.35-7.45) ABG pCO2 44 (35-46) mmHg ABG pO2 100 H (80-95) mmHg ABG HCO3 22 (19-24) mmol/L POC ABG O2 Sat (90-95) % ABG O2 Saturation 96.2 H (90-95) % ABG Base Excess -4.8 (-9-1.8) mEq/L Aniket Test Pos (Pos) Oxygen Given 40% POC Sodium (135-144) mmol/L Sodium (136-145) mmol/L POC Potassium (3.3-5.0) mmol/L Potassium (3.5-5.1) mmol/L Chloride (98-107) mmol/L Carbon Dioxide (21-32) mmol/L Anion Gap (3-11) BUN (6-23) mg/dl Creatinine (0.6-1.4) mg/dl Est Cr Clr Drug Dosing ml/min eGFR BUN/Creatinine Ratio (10-20) Glucose (70-99(Fasting)) mg/dl Lactate 2.7 H* (0.4-2.0) mmol/L Calcium (8.6-10.3) mg/dl Magnesium (1.7-2.4) mg/dl Total Bilirubin (0.2-1.0) mg/dl AST (13-39) U/L ALT (7-52) U/L Alkaline Phosphatase (34-104) U/L Troponin I High Sens (0-20) pg/ml B-Natriuretic Peptide (0-100) pg/ml Total Protein (6.0-8.3) gm/dl Albumin (3.4-5.0) gm/dl Globulin (2.5-4.0) gm/dl Albumin/Globulin Ratio (0.9-2) Urine Color Urine Appearance (Clear) Urine pH (4.5-7.5) Ur Specific [place] (1.000-1.030) Urine Protein (Negative) Urine Glucose (UA) (Negative) Urine Ketones (Negative) Urine Blood (Negative) Urine Nitrite (Negative) Urine Bilirubin (Negative) Urine Urobilinogen (Negative) Ur Leukocyte Esterase (Negative) Urine WBC (Auto) (0-5) /hpf Urine RBC (Auto) (0-2) /hpf U Hyaline Cast (Auto) (0-2) /lpf U Epithel Cells (Auto) (0-2) /hpf Urine Bacteria (Auto) (None Seen) Adenovirus (PCR) (NotDetected) B. pertussis DNA (PCR) (NotDetected) B.parapertussis DNA PCR (NotDetected) C. pneumoniae DNA (PCR) (NotDetected) Coronavirus OC43 (PCR) (NotDetected) Coronavirus HKU1 (PCR) (NotDetected) Coronavirus 229E (PCR) (NotDetected) SARS-CoV-2 (PCR) (NotDetected) Coronavirus NL63 (PCR) (NotDetected) Human Metapneumovir PCR (NotDetected) Influenza Type A (PCR) (NotDetected) Influenza Type B (PCR) (NotDetected) M. pneumoniae (PCR) (NotDetected) Parainfluenza 1 (PCR) (NotDetected) Parainfluenza 2 (PCR) (NotDetected) Parainfluenza 3 (PCR) (NotDetected) Parainfluenza 4 (PCR) (NotDetected) RSV (PCR) (NotDetected) Entero/Rhino (PCR) (NotDetected) Administered Medications Discontinued Medications Furosemide (Furosemide Inj 20 Mg/2 Ml Vial) 20 mg IV ONE ONE Stop: 06/29/24 21:18 Last Admin: 06/29/24 21:24 Dose: 20 mg Documented By: LAF Discharge Plan Visit Data Chief Complaint: Shortness of Breath/Dyspnea Stated Complaint: SOB ED Provider: Betina Calderón Discharge Problem: Acute hypoxemic respiratory failure, Non-ST elevation VT (NSTEMI), Pulmonary edema, ESRD on dialysis, Elevated lactic acid level, Elevated brain natriuretic peptide (BNP) level, Hyperglycemia Forms Stand Alone Forms: My [facility] Prescriptions Prescriptions: No Action (DME) BD SafetyGlide Insulin Syringe 0.3 mL 31 gauge x 15/64" syringe MISCELLANEOUS Qty: 700 3RF Rx Instructions: Use 7 times daily amiodarone 200 mg tablet 200 mg PO DAILY Qty: 90 3RF Dose Instruction: 1 TAB BY MOUTH EVERY DAY pantoprazole 40 mg tablet,delayed release (DR/EC) 40 mg PO DAILYBB Qty: 90 3RF Rx Instructions: 1 TAB BY MOUTH EVERY MORNING *DO NOT CRUSH* Novolin R FlexPen 100 unit/mL (3 mL) insulin pen See Rx Instructions .ROUTE .COMPLEX MDD 30 units Qty: 15 11RF Hold Instructions: To restart? Dose Instruction: SLIDING SCALE: (ROTATE SITES) FOUR TIMES DAILY SUBQ 141-175=1UNIT; 176- 210=2UNITS; 211-245=3UNITS; 246-280=4UNITS; 246-280=4UNITS; 281-315=5UNITS; 316- 350=6UNITS Rx Instructions: Novolin-R 3 units with breakfast; 6 units with lunch; 8 units with dinner + sliding scale (<141: 0 units, 141-175: 1 unit, 176-210: 2 units, 211-245: 3 units, 246-280: 4 units, 281-315: 5 units, etc.) multivitamin Tablet 1 tab PO DAILY Qty: 90 3RF Hold Instructions: restart? levothyroxine 50 mcg tablet 50 mcg PO DAILYBB Qty: 90 1RF Rx Instructions: 1 TAB BY MOUTH EVERY MORNING TAKE ON AN EMPTY STOMACH WITH A FULL GLASS OF WATER WAIT 30 MINUTES TO EAT, DRINK OR TAKE MEDICATIONS triamcinolone acetonide 0.1 % cream 1 applic TOP BID Qty: 80 5RF midodrine 2.5 mg tablet 2.5 mg PO TIDM Qty: 270 3RF metoprolol succinate 50 mg tablet extended release 24 hr 75 mg PO HS Qty: 90 3RF Rx Instructions: 1.5 TABS BY MOUTH AT BEDTIME Novolin R Regular U100 Insulin 100 unit/mL solution See Rx Instructions subcut Q6H PRN (Reason: hyperglycemia) Qty: 30 3RF Rx Instructions: Novolin-R 3 units with breakfast; 6 units with lunch; 8 units with dinner + sliding scale (<141: 0 units, 141-175: 1 unit, 176-210: 2 units, 211-245: 3 units, 246-280: 4 units, 281-315: 5 units, etc.) subcutaneously every 6 hours PRN; administer during TPN infusion (DME) insulin syringe-needle U-100 [BD Insulin Syringe Ultra-Fine] 0.3 mL 31 gauge x 5/16" syringe See Rx Instructions .Route Qty: 100 3RF Rx Instructions: As directed atorvastatin 80 mg tablet 80 mg PO QAM Qty: 90 3RF clopidogrel 75 mg tablet 75 mg PO DAILY Qty: 90 3RF insulin glargine [Basaglar KwikPen U-100 Insulin] 100 unit/mL (3 mL) insulin pen 12 unit subcut BID fluticasone propionate 50 mcg/actuation spray,suspension 1 spray intranasal BID Qty: 16 11RF tramadol 50 mg tablet 50 mg PO Q12H PRN (Reason: pain) Qty: 60 5RF (DME) pen needle, diabetic [BD Ultra-Fine Mini Pen Needle] 31 gauge x 3/16" needle See Rx Instructions .ROUTE .COMPLEX Qty: 200 3RF Dose Instruction: USE FOR INSULIN INJECTION NEEDED Rx Instructions: USE FOR INSULIN INJECTION twice daily (DME) pen needle, diabetic [BD Maxine 2nd Gen Pen Needle] 32 gauge x 5/32" needle See Rx Instructions miscellaneous .MEDSUPPLY Qty: 600 3RF Rx Instructions: Inject up to 5x a day with a new pen needles ofloxacin 0.3 % drops 5 drp otic (ear) BID 14 Days Qty: 10 0RF Rx Instructions: right ear acetaminophen 325 mg tablet 325 mg PO Q6H PRN (Reason: Pain) menthol-zinc oxide [Calmoseptine] 0.44-20.6 % ointment See Rx Instructions topical .COMPLEX PRN (Reason: skin irritation) Qty: 113 1RF Rx Instructions: topically apply to buttocks and posterior scrotum BID PRN (DME) FreeStyle Ritchie 14 Day Sensor Kit MISCELLANEOUS (DME) FreeStyle Ritchie 14 Day [place] Misc MISCELLANEOUS amoxicillin 500 mg capsule 2,000 mg PO DIRECTED PRN (Reason: 1 HR PRIOR TO DENTAL PROCEDURES) docusate sodium 100 mg tablet 200 mg PO HS sevelamer carbonate 800 mg tablet 800 mg PO TIDM Rx Instructions: 1 TAB BY MOUTH THREE TIMES DAILY WITH MEALS Eliquis 2.5 mg tablet 2.5 mg PO Q12H furosemide 80 mg tablet 80 mg PO DAILY quetiapine [Seroquel] 25 mg tablet 25 mg PO HS Referrals Referrals: Orly Dickson MD [Primary Care Provider] -
[2024-06-29 20:29] LABS: iSTAT Arterial Blood Gas HCO3 21 meg/L (19-24); iSTAT Arterial Blood Gas pCO2 49 mmHg (35-46); iSTAT Arterial Blood Gas pH 7.25 (7.35-7.45); iSTAT Arterial Blood Gas pO2 99 mmHg (80-95); iSTAT Carbon Dioxide 23 mmol/L (24-31); iSTAT Hematocrit 41 % (42-52); iSTAT Hemoglobin 13.9 g/dl (14.0-18.0); iSTAT Potassium 4.3 mmol/L (3.3-5.0); iSTAT Sodium 133 mmol/L (135-144)
[2024-06-29 20:53] LABS: Albumin Globulin Ratio 1.2 (0.9-2); Albumin Level 4.4 gm/dl (3.4-5.0); BUN Creatinine Ratio 13.1 (10-20); Bilirubin,Total 0.4 mg/dl (0.2-1.0); Calcium 8.9 mg/dl (8.6-10.3); Creatinine Clr Calc Pharmacy 10.1 ml/min; Globulin 3.6 gm/dl (2.5-4.0); Magnesium 1.9 mg/dl (1.7-2.4); Potassium 4.2 mmol/L (3.5-5.1)
[2024-06-29 20:57] LABS: Prothrombin Time 10.9 Seconds (9.0-12.0)
[2024-06-29 20:59] LABS: Troponin I High Sensitivity 88.9 pg/ml (0-20)
[2024-06-29 21:16] LABS: Adenovirus PCR Not Detected (NotDetected); Bordetella parapertussis PCR Not Detected (NotDetected); Bordetella pertussis PCR Not Detected (NotDetected); Chlamydia pneumoniae PCR Not Detected (NotDetected); Coronavirus 229E PCR Not Detected (NotDetected); Coronavirus CoV-2 (COVID19)PCR Not Detected (NotDetected); Coronavirus HKU1 PCR Not Detected (NotDetected); Coronavirus NL63 PCR Not Detected (NotDetected); Coronavirus OC43PCR Not Detected (NotDetected); Human Metapneumovirus PCR Not Detected (NotDetected); Influenza A PCR Not Detected (NotDetected); Influenza B PCR Not Detected (NotDetected); Mycoplasma pneumoniae PCR Not Detected (NotDetected); Parainfluenza Virus 1 PCR Not Detected (NotDetected); Parainfluenza Virus 2 PCR Not Detected (NotDetected); Parainfluenza Virus 3 PCR Not Detected (NotDetected); Parainfluenza Virus 4 PCR Not Detected (NotDetected); Respiratory Syncytial VirusPCR Not Detected (NotDetected); Rhinovirus/Enterovirus PCR Not Detected (NotDetected)
[2024-06-29 21:17] LABS: Basophils # (auto) 0.05 K/uL (0.00-0.20); Basophils % (auto) 0.5 %; Eosinophils # (auto) 0.16 K/uL (0.00-0.50); Eosinophils % (auto) 1.5 %; Hematocrit (blood only) 41.1 % (42.0-52.0); Hemoglobin 12.6 g/dl (14.0-18.0); Immature Granulocytes # (auto) 0.07 K/uL (0.01-0.20); Immature Granulocytes % (auto) 0.7 %; Lymphocytes # (auto) 2.35 K/uL (1.20-3.40); Lymphocytes % (auto) 22.4 %; Mean Corpuscular Hemoglobin 29.9 pg (25.0-34.0); Mean Corpuscular Hgb Conc 30.7 g/dL (32.0-36.0); Mean Corpuscular Volume 97.6 fL (80.0-100.0); Mean Platelet Volume 11.5 fL (9.4-12.4); Monocytes # (auto) 0.78 K/uL (0.11-0.59); Monocytes % (auto) 7.4 %; Neutrophils # (auto) 7.07 K/uL (1.40-6.50); Neutrophils % (auto) 67.5 %; Platelet Count 229 K/uL (130-400); RDW Coefficient of Variation 15.4 % (11.5-14.5); RDW Standard Deviation 55.3 fL (36.4-46.3); Red Blood Count 4.21 M/uL (4.70-6.10); White Blood Count 10.48 K/ul (4.8-10.8)
[2024-06-29] MEDS: FUROSEMIDE INJ 20 MG/2 ML VIAL IV ONE (21:24)
[2024-06-29 22:09] LABS: Appearance Urine Cloudy (Clear); Bacteria Urine Automated None Seen (None Seen); Bilirubin Urine Negative (Negative); Blood Urine 2+ (Negative); Cast Urine Automated 0-2 /lpf (0-2); Color Urine Yellow; Epithelial Cell Urine Auto 0-2 /hpf (0-2); Glucose Urine UA 3+ (Negative); Ketones Urine Negative (Negative); Leukocyte Esterase Urine 3+ (Negative); Nitrite Urine Negative (Negative); Protein Urine 2+ (Negative); RBC Urine Automated >20 /hpf (0-2); Specific Gravity Urine 1.014 (1.000-1.030); Urobilinogen Urine Negative (Negative); WBC Urine Automated >50 /hpf (0-5)
[2024-06-29 23:03] LABS: Base Excess ABG -4.8 mEq/L (-9-1.8); HCO3 ABG 22 mmol/L (19-24); Oxygen Saturation ABG 96.2 % (90-95); PCO2 ABG 44 mmHg (35-46); PO2 ABG 100 mmHg (80-95)
[2024-06-29 23:04] LABS: Allen Test Pos (Pos)
--- NOTE | 2024-06-29 23:54 | History & Physical Report ---
Date of Service June 29, 2024 Assessment & Plan (1) Hypoxia: Plan: 84yo male with ESRD on HD, CHF presenting with acute hypoxic respiratory failure requiring rescue BiPAP placement in the ER. Patient has been given Lasix 20mg + 40mg IV with appx 800mL of urine in the bag during my encounter. CXR per my interpretation appears to have pulmonary edema Clinically improved. Now on 4L NC -Admit to PCU -Continue supplemental O2 as needed - presently on NC, tolerating well -Measure I/Os, daily weights, Danielson catheter in place. (2) Hyperglycemia: Plan: Patient with poorly controlled DM. Presently with BSG elevated at 355. Last [id number]=7.5. Patient is on Lantus 12u BID and ISS -Lantus 10u BID -ISS -Goal blood sugar 110 - 140 (awaiting AM labs now - if BSG still in 300's will order dose of IV regular insulin) (3) ESRD on dialysis: Plan: Patient with ESRD on HD q M and F. He had a full treatment on Sunday. Sill makes a little bit of urine. Follows with Dr. Loja -Continue Sevelamer -Nephrology consultation appreciated -Continue Midodrine -Continue Lasix 80mg po daily (4) Elevated troponin: Plan: Patient denies chest pain. EKG with RBBB. Troponin elevation 88.9 --> 277.6, repeat is pending. Consider demand ischemia in setting of prolonged hypoxia -Telemetry monitoring -Trend troponin to peak -Continue cardiac medications - Plavix, Atorvastatin and Metoprolol -Echocardiogram and Cardiology consultation pending troponin trend Plan Chronic Medical Conditions: Paroxysmal atrial fibrillation -Continue Eliquis -Continue metoprolol -Continue Amiodarone GERD -Protonis 40mg po daily Hypothyroidism -Synthroid 50mcg po daily CAD -Continue Plavix, Atorvastatin and Metoprolol F/E/N Ppx - Continue Apixaban 2.5mg po BID for DVT prophylaxis Code - DNR/DNI per discussion with patient at bedside Dispo - Admit to PCU History of Present Illness Chief Complaint: acute hypoxic respiratory failure Primary Care Provider: Orly Dickson MD Davin Gaviria is a pleasant 84yo male with history of ESRD on HD, DM, HTN, HLP and ICM presenting from [facility] and episode of hypoxia. Patient ate dinner this evening without difficulty - he had a hospital coder salad. No choking or aspiration during the meal. Approximately 30 minutes after eating he developed a severe cough and shortness of breath. His saturations were found to be in the 60's in the field so he was placed on CPAP by EMS with improvement to 82%. He was given a Nitro as well. In the ER patient has been stable on BiPAP. He reports to occasional nausea, otherwise no complaints. He denies fever, chills, abdominal pain, vomiting or diarrhea. NO cough or congestion preceding tonight's event. ER Course: Lasix 20mg IV Apixaban 2.5mg PO Metoprolol 75mgpo Midodrine 2.5mg Glargine 12u Aspart 8u Lasix 40u IV Allergies Allergy/AdvReac Type Severity Reaction Status Date / Time latex Allergy Mild SKIN Verified 06/24/24 13:29 IRRITATION No Known Drug Allergies Allergy Verified 06/24/24 13:29 Home Medications Medication Instructions Recorded Confirmed Type flash glucose scanning reader 07/19/20 06/12/24 History (FreeStyle Ritchie 14 Day [place]) flash glucose sensor (FreeStyle 07/19/20 06/12/24 History Ritchie 14 Day Sensor kit) insulin syringe,safety needle 0.3 #700 ea 01/15/23 06/12/24 Rx mL 31 gauge x 15/64" (BD SafetyGlide Insulin Syringe) amoxicillin 500 mg capsule 2,000 mg PO DIRECTED PRN 1 HR 01/01/24 06/24/24 History PRIOR TO DENTAL PROCEDURES docusate sodium 100 mg tablet 200 mg PO HS 01/01/24 06/29/24 History insulin glargine 100 unit/mL (3 12 unit subcut BID 01/24/24 06/29/24 History mL) subcutaneous pen (Basaglar KwikPen U-100 Insulin) amiodarone 200 mg tablet 200 mg PO DAILY #90 tabs 02/15/24 06/29/24 Rx atorvastatin 80 mg tablet 80 mg PO QAM #90 tabs 02/26/24 06/29/24 Rx clopidogrel 75 mg tablet 75 mg PO DAILY #90 tabs 02/26/24 06/29/24 Rx pantoprazole 40 mg tablet,delayed 40 mg PO DAILYBB #90 tabs 03/04/24 06/29/24 Rx release insulin regular human 100 unit/mL See Rx Instructions .Route 03/12/24 06/29/24 Rx (3 mL) subcutaneous pen (Novolin R .COMPLEX #15 mL FlexPen) fluticasone propionate 50 1 spray intranasal BID #16 grams 04/03/24 06/29/24 Rx mcg/actuation nasal spray,suspension levothyroxine 50 mcg tablet 50 mcg PO DAILYBB #90 tabs 04/03/24 06/29/24 Rx multivitamin 1 tab PO DAILY #90 tabs 04/03/24 06/24/24 Rx tramadol 50 mg tablet 50 mg PO Q12H PRN pain #60 tabs 04/03/24 06/29/24 Rx quetiapine 25 mg tablet (Seroquel) 25 mg PO HS 04/04/24 06/29/24 History apixaban 2.5 mg tablet (Eliquis) 2.5 mg PO Q12H 04/05/24 06/29/24 History sevelamer carbonate 800 mg tablet 800 mg PO TIDM 04/05/24 06/29/24 History triamcinolone acetonide 0.1 % 1 applic topical BID itching #80 04/07/24 06/12/24 Rx topical cream grams midodrine 2.5 mg tablet 2.5 mg PO TIDM #270 tabs 04/08/24 06/29/24 Rx metoprolol succinate 50 mg 75 mg (1.5 x 50 mg) PO HS #90 tabs 04/25/24 06/29/24 Rx tablet,extended release 24 hr menthol 0.44 %-zinc oxide 20.6 % See Rx Instructions topical 05/13/24 06/12/24 Rx topical ointment (Calmoseptine) .COMPLEX PRN skin irritation #113 grams ofloxacin 0.3 % ear drops 5 drp otic (ear) BID 14 days #10 mL 05/20/24 06/12/24 Rx insulin regular human 100 unit/mL See Rx Instructions subcut Q6H PRN 06/03/24 06/29/24 Rx injection solution (Novolin R hyperglycemia #30 mL Regular U-100 Insulin) insulin syringe-needle U-100 0.3 #100 ea 06/03/24 06/12/24 Rx mL 31 gauge x 5/16" (BD Insulin Syringe Ultra-Fine) pen needle, diabetic 31 gauge x #200 ea 06/03/24 06/12/24 Rx 3/16" (BD Ultra-Fine Mini Pen Needle) pen needle, diabetic 32 gauge x #600 ea 06/03/24 06/12/24 Rx 5/32" (BD Maxine 2nd Gen Pen Needle) acetaminophen 325 mg tablet 325 mg PO Q6H PRN Pain 06/24/24 06/29/24 History furosemide 80 mg tablet 80 mg PO DAILY 06/29/24 06/29/24 History Past Med/Surg History Problem List Hyperglycemia (Acute) Elevated brain natriuretic peptide (BNP) level (Acute) Elevated lactic acid level (Acute) ESRD on dialysis (Acute) Pulmonary edema (Acute) Non-ST elevation [place] (NSTEMI) (Acute) Acute hypoxemic respiratory failure (Acute) Irritation of skin of perianal region Uncontrolled type 1 diabetes mellitus with kidney complication, with long-term current use of insulin Central venous catheter in place Fluid overload (Acute) End stage renal disease (Acute) Hypoxia (Acute) Acute hypoxic respiratory failure Dialysis AV fistula malfunction Physical deconditioning Ischemic cardiomyopathy (Acute) CAD (coronary artery disease) Hypotension (Acute) NSTEMI (non-ST elevated myocardial infarction) CKD (chronic kidney disease), stage V Dialysis AV fistula malfunction CKD (chronic kidney disease), stage IV Sleep disturbance Health care maintenance Hyperparathyroidism (Chronic) ASCVD (arteriosclerotic cardiovascular disease) Allergic rhinitis Mixed conductive and sensorineural hearing loss of right ear with restricted hearing of left ear Back pain Chronic otitis media of right ear with perforated tympanic membrane (Chronic) Generalized osteoarthritis Nephrolithiasis Coronary arteriosclerosis (Chronic) S/p angioplasty 1990 (no stent or hx of CABG) Sensorineural hearing loss (SNHL) of both ears No hearing aids Hypothyroidism (Chronic) Controlled type 2 diabetes mellitus with kidney complication, with long-term current use of insulin (Chronic) Hgb A1C 09/2022 was 7.7 BPH with obstruction/lower urinary tract symptoms Medical History Hemodialysis catheter malfunction Accelerated hypertension Acute hypoxemic respiratory failure Uremia Atrial fibrillation with rapid ventricular response High anion gap metabolic acidosis Cardiomyopathy Acute combined systolic and diastolic CHF, NYHA class 3 Shortness of breath Closed head injury Acute hypoxemic respiratory failure Acute pulmonary edema Murmur Skin tear of left forearm without complication Skin tear of left elbow without complication Obesity Chronic renal insufficiency FOLLOWED BY DR. CORDOVA CKD V Acute pulmonary edema Ear drum perforation High blood urea nitrogen (BUN) Elevated troponin Acute kidney injury superimposed on CKD Acute [place] ESRD (end stage renal disease) on dialysis [facility] M/W/F NSTEMI (non-ST elevated myocardial infarction) Aug 2023 > cath > [facility] > no stents Pneumonia Sep 2023 > resolved per pt COVID-12 Oct 2023 > resolved BPH (benign prostatic hyperplasia) Arteriovenous fistula Left AVF creation 11/2022- now has occlusion- reason for upcoming procedure History of kidney stones Glaucoma HX OF- S/P TREATMENT- NO CURRENT ISSUES Cyst of kidney, acquired Dyslipidemia Hypertension FOLLOWED BY DR. RAYO Obesity, Class II, BMI 35-39.9 Surgical History History of bilateral knee replacement History of cardiac cath Aug 2023 > cath > [facility] > no stents History of vascular access device right chest at present History of total right knee replacement H/O eye surgery RT/LEFT EYE FOR GLAUCOMA History of cataract surgery LEFT/RT History of total left knee replacement (TKR) X 2 History of lithotripsy a couple times History of tonsillectomy History of angioplasty at the age of 51 History of surgery scrotal hernia repair History of exploratory laparotomy History of umbilical hernia repair History of colonoscopy History of ear surgery Tympanic membrane repair--per pt a couple times Family History Father Cancer of kidney Hypertension Cardiac disorder Family/Other Cancer of kidney Bone cancer Mother Bone cancer Cardiac disorder Hypertension Other No family history of adverse response to anesthesia No family history of bleeding disorder Social History Smoking Status: Former smoker Tobacco Type: Cigarettes Second Hand Exposure: No; Do You Dip or Chew Tobacco: No; Hx Alcohol Use: No Hx Substance Use: No Preferred Language: Uzbek Communication Ability: Effective Visual Impairment: Limited Hearing Ability: Normal [employer] Required: No Beliefs That Will Affect Care: None marital status: / Current Living Situation: Personal Care Facility Current Living Situation Comment: [facility] current occupational status: employed 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 How many Children do You have: 1 How many Children do You have Comment: Stepdaughter, 2 grandchildren Feels Safe at Home: Yes Safety Concerns: Feels Safe At This Time Diet: regular caffeine: Yes during the past year weight has: remained stable Dental Care, Regularly: Yes Physical Activity Frequency: 5-6 Times per Week Seatbelt Use: always Sunscreen Use: No Assistive Devices: Walker Review of Systems Review of Systems: General: Patient denies fevers, chills, malaise, weight loss or weight gain Skin: Patient denies bruising, bleeding or rash HEENT: Patient denies headache, visual changes, sore throat, difficulty swallowing, stiff neck Cardio: Patient denies chest pain, palpitations, shortness of breath, lightheadedness Pulmonary: Patient denies cough, wheeze GI: Patient denies abdominal pain, nausea, vomiting, diarrhea, constipation : Patient denies dysuria, frequency, urgency or hematuria Musculoskeletal: Patient denies swelling or pain of the joints, edema Neuro: Patient denies numbness, tingling, weakness or falls Psych: Patient denies depression, anxiety Physical Exam Physical Exam: General: patient resting comfortably, NAD, non-toxic in appearance, AA&O x 4 Skin: warm, dry, intact, no rashes or lesions HEENT: NC/AT, PERRL, EOMI, anicteric sclera, conjunctiva without injection, external ear normal to inspection and nontender, nares patent, moist mucus membranes, dentition intact, no oropharyngeal lesions, neck supple, trachea midline, no LAD, no thyromegaly, no JVD Heart: +S1/S2, regular, no m/r/g Lungs: equal air entry bilaterally, no rales/rhonchi/wheezes Abd: +BS, soft, NT/ND, no masses/organomegaly/ascites Ext: warm, 2+ pulses in UE/LE bilaterally, no clubbing/cyanosis or edema, LUE AV fistula with palpable thrill Neuro: nonfocal, patient AA&O x 4, speech intact, no facial droop, moving all extremities on command with equal strength 5/5 BiPAP removed during my encounter - patient placed on 4L NC - no distress, saturations maintained > 92% Results & Data Results & Data Vital Signs (Past 12 Hours) Vital Signs Temp Pulse Resp BP Pulse Ox O2 Del Method FiO2 06/29/24 23:17 71 19 96 40 06/29/24 23:00 70 132/79 96 CPAP 06/29/24 22:00 82 20 136/76 95 06/29/24 21:20 76 18 105/61 100 06/29/24 20:30 74 20 117/68 98 06/29/24 20:17 97 CPAP 06/29/24 20:10 79 33 H 97 70 06/29/24 20:07 81 06/29/24 20:05 97 CPAP 06/29/24 20:05 36.7 C 73 28 H 152/77 H 97 CPAP Laboratory Results Laboratory Results WBC 8.17 K/ul (4.8-10.8) 06/30/24 03:19 RBC 3.67 M/uL (4.70-6.10) L 06/30/24 03:19 Hgb 11.3 g/dl (14.0-18.0) L 06/30/24 03:19 POC Hgb 13.9 g/dl (14.0-18.0) L 06/29/24 20:15 Hct 34.7 % (42.0-52.0) L 06/30/24 03:19 POC Hct 41 % (42-52) L 06/29/24 20:15 MCV 94.6 fL (80.0-100.0) 06/30/24 03:19 MCH 30.8 pg (25.0-34.0) 06/30/24 03:19 MCHC 32.6 g/dL (32.0-36.0) 06/30/24 03:19 RDW Std Deviation 52.2 fL (36.4-46.3) H 06/30/24 03:19 RDW Coeff of Aysha 15.0 % (11.5-14.5) H 06/30/24 03:19 Plt Count 171 K/uL (130-400) 06/30/24 03:19 MPV 11.2 fL (9.4-12.4) 06/30/24 03:19 Immature Gran % (Auto) 0.7 % 06/29/24 20:14 Neut % (Auto) 67.5 % 06/29/24 20:14 Lymph % (Auto) 22.4 % 06/29/24 20:14 Webster % (Auto) 7.4 % 06/29/24 20:14 Eos % (Auto) 1.5 % 06/29/24 20:14 Baso % (Auto) 0.5 % 06/29/24 20:14 Neut # (Auto) 7.07 K/uL (1.40-6.50) H 06/29/24 20:14 Lymph # (Auto) 2.35 K/uL (1.20-3.40) 06/29/24 20:14 Webster # (Auto) 0.78 K/uL (0.11-0.59) H 06/29/24 20:14 Eos # (Auto) 0.16 K/uL (0.00-0.50) 06/29/24 20:14 Baso # (Auto) 0.05 K/uL (0.00-0.20) 06/29/24 20:14 Immature Gran # (Auto) 0.07 K/uL (0.01-0.20) 06/29/24 20:14 PT 10.9 Seconds (9.0-12.0) 06/29/24 20:14 INR 1.0 (0.9-1.1) 06/29/24 20:14 POC pH 7.25 (7.35-7.45) L 06/29/24 20:15 POC pCO2 49 mmHg (35-46) H 06/29/24 20:15 POC pO2 99 mmHg (80-95) H 06/29/24 20:15 POC HCO3 21 prema/L (19-24) 06/29/24 20:15 POC Total CO2 23 mmol/L (24-31) L 06/29/24 20:15 POC Base Excess -6.0 prema/L (-9-1.8) 06/29/24 20:15 ABG pH 7.30 (7.35-7.45) L 06/29/24 Unknown ABG pCO2 44 mmHg (35-46) 06/29/24 Unknown ABG pO2 100 mmHg (80-95) H 06/29/24 Unknown ABG HCO3 22 mmol/L (19-24) 06/29/24 Unknown POC ABG O2 Sat 96.0 % (90-95) H 06/29/24 20:15 ABG O2 Saturation 96.2 % (90-95) H 06/29/24 Unknown ABG Base Excess -4.8 mEq/L (-9-1.8) 06/29/24 Unknown Anikte Test Pos (Pos) 06/29/24 Unknown Oxygen Given 40% 06/29/24 Unknown POC Sodium 133 mmol/L (135-144) L 06/29/24 20:15 Sodium 134 mmol/L (136-145) L 06/29/24 20:14 POC Potassium 4.3 mmol/L (3.3-5.0) 06/29/24 20:15 Potassium 4.2 mmol/L (3.5-5.1) 06/29/24 20:14 Chloride 93 mmol/L (98-107) L 06/29/24 20:14 Carbon Dioxide 23 mmol/L (21-32) 06/29/24 20:14 Anion Gap 18 (3-11) H 06/29/24 20:14 BUN 84 mg/dl (6-23) H 06/29/24 20:14 Creatinine 6.43 mg/dl (0.6-1.4) H* 06/29/24 20:14 Est Cr Clr Drug Dosing 10.1 ml/min 06/29/24 20:14 eGFR 8.00 06/29/24 20:14 BUN/Creatinine Ratio 13.1 (10-20) 06/29/24 20:14 Glucose 463 mg/dl (70-99(Fasting)) H* 06/29/24 20:14 POC Glucose 332 mg/dl (70-99) H* 06/30/24 01:55 Lactate 2.2 mmol/L (0.4-2.0) H* 06/30/24 03:19 Calcium 8.9 mg/dl (8.6-10.3) 06/29/24 20:14 Magnesium 1.9 mg/dl (1.7-2.4) 06/29/24 20:14 Total Bilirubin 0.4 mg/dl (0.2-1.0) 06/29/24 20:14 AST 12 U/L (13-39) L 06/29/24 20:14 ALT 12 U/L (7-52) 06/29/24 20:14 Alkaline Phosphatase 194 U/L (34-104) H 06/29/24 20:14 Troponin I High Sens 277.6 pg/ml (0-20) H* D 06/29/24 22:42 B-Natriuretic Peptide 944 pg/ml (0-100) H 06/29/24 20:14 Total Protein 8.0 gm/dl (6.0-8.3) 06/29/24 20:14 Albumin 4.4 gm/dl (3.4-5.0) 06/29/24 20:14 Globulin 3.6 gm/dl (2.5-4.0) 06/29/24 20:14 Albumin/Globulin Ratio 1.2 (0.9-2) 06/29/24 20:14 Urine Color Yellow 06/29/24 21:40 Urine Appearance Cloudy (Clear) A 06/29/24 21:40 Urine pH 7.0 (4.5-7.5) 06/29/24 21:40 Ur Specific Maynard 1.014 (1.000-1.030) 06/29/24 21:40 Urine Protein 2+ (Negative) H 06/29/24 21:40 Urine Glucose (UA) 3+ (Negative) H 06/29/24 21:40 Urine Ketones Negative (Negative) 06/29/24 21:40 Urine Blood 2+ (Negative) H 06/29/24 21:40 Urine Nitrite Negative (Negative) 06/29/24 21:40 Urine Bilirubin Negative (Negative) 06/29/24 21:40 Urine Urobilinogen Negative (Negative) 06/29/24 21:40 Ur Leukocyte Esterase 3+ (Negative) H 06/29/24 21:40 Urine WBC (Auto) >50 /hpf (0-5) H 06/29/24 21:40 Urine RBC (Auto) >20 /hpf (0-2) H 06/29/24 21:40 U Hyaline Cast (Auto) 0-2 /lpf (0-2) 06/29/24 21:40 U Epithel Cells (Auto) 0-2 /hpf (0-2) 06/29/24 21:40 Urine Bacteria (Auto) None Seen (None Seen) 06/29/24 21:40 Adenovirus (PCR) Not Detected (NotDetected) 06/29/24 20:14 B. pertussis DNA (PCR) Not Detected (NotDetected) 06/29/24 20:14 B.parapertussis DNA PCR Not Detected (NotDetected) 06/29/24 20:14 C. pneumoniae DNA (PCR) Not Detected (NotDetected) 06/29/24 20:14 Coronavirus OC43 (PCR) Not Detected (NotDetected) 06/29/24 20:14 Coronavirus HKU1 (PCR) Not Detected (NotDetected) 06/29/24 20:14 Coronavirus 229E (PCR) Not Detected (NotDetected) 06/29/24 20:14 SARS-CoV-2 (PCR) Not Detected (NotDetected) 06/29/24 20:14 Coronavirus NL63 (PCR) Not Detected (NotDetected) 06/29/24 20:14 Human Metapneumovir PCR Not Detected (NotDetected) 06/29/24 20:14 Influenza Type A (PCR) Not Detected (NotDetected) 06/29/24 20:14 Influenza Type B (PCR) Not Detected (NotDetected) 06/29/24 20:14 M. pneumoniae (PCR) Not Detected (NotDetected) 06/29/24 20:14 Parainfluenza 1 (PCR) Not Detected (NotDetected) 06/29/24 20:14 Parainfluenza 2 (PCR) Not Detected (NotDetected) 06/29/24 20:14 Parainfluenza 3 (PCR) Not Detected (NotDetected) 06/29/24 20:14 Parainfluenza 4 (PCR) Not Detected (NotDetected) 06/29/24 20:14 RSV (PCR) Not Detected (NotDetected) 06/29/24 20:14 Entero/Rhino (PCR) Not Detected (NotDetected) 06/29/24 20:14 Diagnostic Findings CXR per my interpretation - appears to have some pulmonary edema, bilateral airspace opacities R > L as well as enlarged cardiac shadow ECG Additional Comments: EKG with SR at 78bpm, left axis deviation, RBBB present - new from prior EKG PG Care Time/CCT Total # of Minutes Spent Total Time Spent with Patient: Total time spent is greater than 50% in coordination of care (as documented) at patient's floor/unit and/or counseling patient: Coding Level of Care Code 99615 INT INP/OBS CARE MIN Diagnoses Hypoxia R09.02 Hyperglycemia R73.9 ESRD on dialysis N18.6; Z99.2 Elevated troponin R79.89
[2024-06-30] MEDS: APIXABAN 2.5 MG TAB PO STA (00:56)
[2024-06-30] MEDS: MIDODRINE HCL 2.5 MG TAB PO STA (00:57)
[2024-06-30] MEDS: METOPROLOL SUCC 25MG EXT REL TAB PO STA (00:57)
[2024-06-30] MEDS: LANTUS PER UNIT CHARGE SQ STA (01:01)
[2024-06-30] MEDS: INSULIN ASPART PER UNIT CHARGE SC STA (01:02)
[2024-06-30] MEDS ORDERED: traMADol HCL 50 MG TABLET PO PRN (02:33)
[2024-06-30] MEDS ORDERED: DEXTROSE 50% 50 ML SYRINGE IV PRN (02:33)
[2024-06-30] MEDS ORDERED: GLUCOSE 40% GEL 15 GM TUBE PO PRN (02:33)
[2024-06-30] MEDS ORDERED: GLUCAGON FOR INJ 1 MG VIAL SQ PRN (02:33)
[2024-06-30] MEDS ORDERED: ACETAMINOPHEN 325 MG TAB PO PRN (02:33)
[2024-06-30] MEDS ORDERED: CARBOHYDRATES FOR HYPOGLYCEMIA PO PRN (02:33)
[2024-06-30] MEDS ORDERED: GLUCOSE 10 TAB/TUBE PO PRN (02:33)
[2024-06-30] MEDS ORDERED: ONDANSETRON INJ 2 MG/ML 2 ML VIAL IV PRN (02:33)
[2024-06-30] MEDS: FUROSEMIDE 40 MG/4 ML VIAL IV ONE (03:04)
[2024-06-30 03:36] LABS: Hematocrit (blood only) 34.7 % (42.0-52.0); Hemoglobin 11.3 g/dl (14.0-18.0); Mean Corpuscular Hemoglobin 30.8 pg (25.0-34.0); Mean Corpuscular Hgb Conc 32.6 g/dL (32.0-36.0); Mean Corpuscular Volume 94.6 fL (80.0-100.0); Mean Platelet Volume 11.2 fL (9.4-12.4); Platelet Count 171 K/uL (130-400); RDW Standard Deviation 52.2 fL (36.4-46.3); Red Blood Count 3.67 M/uL (4.70-6.10); White Blood Count 8.17 K/ul (4.8-10.8)
[2024-06-30 03:50] LABS: Albumin Level 3.8 gm/dl (3.4-5.0); Bilirubin Direct 0.1 mg/dl (0-0.2); Bilirubin,Total 0.4 mg/dl (0.2-1.0); Calcium 8.8 mg/dl (8.6-10.3); Potassium 4.6 mmol/L (3.5-5.1)
[2024-06-30 04:01] LABS: BUN Creatinine Ratio 14.1 (10-20); Creatinine Clr Calc Pharmacy 10.2 ml/min; Total Protein 6.8 gm/dl (6.0-8.3)
[2024-06-30] MEDS: INSULIN HUMAN REGULAR PER UNIT 10 UNITS in SYRINGE 9.9 ML IV ONE (05:02)
[2024-06-30] MEDS: PANTOprazole 40 MG TAB PO SCH (06:26)
[2024-06-30] MEDS: LEVOTHYROXINE SODIUM 50 MCG TABLET PO SCH (06:26)
--- NOTE | 2024-06-30 07:58 | XRay Report ---
XR chest 1V portable CLINICAL HISTORY: Dyspnea TECHNIQUE: Single frontal radiograph of the chest was obtained. Comparison: Comparison is made to chest radiograph 04/21/2024 FINDINGS: No lines and tubes are seen. Cardiomegaly is noted. The aortic arch is calcified. Pulmonary airspace opacities most evident in the left lower lung. No evidence of pleural effusion or pneumothorax. IMPRESSION: Probably airspace opacities are seen most evident in the left lower lung. This may represent atelecta sis, pneumonia, and/or aspiration. ACT 112: Negative or not required by law. Electronically signed by: You Mario M.D. 06/30/2024 7:57 AM
[2024-06-30] MEDS: ATORVASTATIN 40 MG TAB PO SCH (08:37)
[2024-06-30] MEDS: MIDODRINE HCL 2.5 MG TAB PO SCH (08:38)
[2024-06-30] MEDS: AMIODARONE 200 MG TAB PO SCH (08:38)
[2024-06-30] MEDS: CLOPIDOGREL BISULFATE 75 MG TAB PO SCH (08:38)
[2024-06-30] MEDS: FUROSEMIDE 80 MG TAB PO SCH (08:38)
[2024-06-30] MEDS: APIXABAN 2.5 MG TAB PO SCH (08:38)
[2024-06-30] MEDS: FLUTICASONE PROPIONATE NA SPR 16 GM BTL SCH (08:38)
[2024-06-30] MEDS: SEVELAMER CARBONATE 800 MG TAB PO SCH (08:38)
[2024-06-30] MEDS: LANTUS PER UNIT CHARGE SQ SCH (08:47)
[2024-06-30] MEDS: INSULIN ASPART PER UNIT CHARGE SC SCH (08:48)
--- NOTE | 2024-06-30 09:03 | Nephrology Consultation ---
Date of Consultation June 30, 2024 Assessment & Plan (1) End stage renal disease: * ESKD due to DKD, hypertensive nephrosclerosis * Outpatient HD Rx: MWF [facility] 3.75hr 2K 2Ca Na 137 HCO3 35 Qb 400 F-180NR; EDW 96.5 kg * Will provide HD today and challenge EDW using Crit-line monitor * Recheck PRP, CBC in am. * Document strict I/O's. (2) Acute hypoxic respiratory failure: * Patient presented w/ hypoxemia and volume overload. * No fever, leukocytosis or productive cough * Clinically suspect high IDWG resulting in CHF * Will challenge EDW on HD, provide education on daily oral fluid restriction * Change Furosemide to Bumetanide to promote better diuresis (3) Atrial fibrillation: * On Amiodarone and Eliquis. HR is controlled. * ECG shows sinus rhythm w/ 1st degree AVB, no ischemic change * Troponin is trending up suggestive of NSTEMI. Consider consultation w/ Cardiology History of Present Illness Reason for Consultation: ESKD-D Attending Physician: Nena Dudley MD History of Present Illness Mr. Gaviria is an 84 year old white male who is seen at the request of the [facility] hospitalist service to provide in-patient HD and assist w/ medical management. Information for the HPI is obtained from direct patient interview and review of the EMR. HPI is summarized as follows: Mr. 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 He dialyzes MWF at [facility] (3.75hr 2K 2Ca Na 137 HCO3 35 Qb 400 F-180NR EDW 96.5 kg). His primary Safety Director is Dr. Snow. Mr. Gaviria underwent L RC AVF 12/[address] Godinez. Unfortunately, this failed. L BC AVF was then created 07/03/23. This required RX SPECIALIST of venous stenosis 04/04/24. Mr. Gaviria reports that he attended hemodialysis on Sunday. There were no complications. His estimated dry weight was increased 0.5 kg. Mr. Gaviria did well until Sunday evening at 6:30 PM when he developed progressive dyspnea. He was evaluated in the [facility] EMD. RA SaO2 was in the 60's. respiratory bio fire was negative. BNP and troponin were noted to be elevated. ECG was without ischemic change. Chest x-ray revealed a LLL infiltrate suggestive of CHF vs pneumonia. IV furosemide was provided and patient diuresed 800 cc. He was placed on CPAP and admitted to the hospitalist service. WBC # is wnl, patient does not have a L shift. Denies fever or productive cough. Mr. Gaviria relates that he frequently has difficulty over the weekend off HD due to congestive heart failure. Review of outpatient HD records shows that IDWG has been 3.5-5.8 kg. 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 Allergies Allergy/AdvReac Type Severity Reaction Status Date / Time latex Allergy Mild SKIN Verified 06/24/24 13:29 IRRITATION No Known Drug Allergies Allergy Verified 06/24/24 13:29 Home Medications Medication Instructions Recorded Confirmed Type flash glucose scanning reader 07/19/20 06/12/24 History (FreeStyle Ritchie 14 Day Lakin) flash glucose sensor (FreeStyle 07/19/20 06/12/24 History Ritchie 14 Day Sensor kit) insulin syringe,safety needle 0.3 #700 ea 01/15/23 06/12/24 Rx mL 31 gauge x 15/64" (BD SafetyGlide Insulin Syringe) amoxicillin 500 mg capsule 2,000 mg PO DIRECTED PRN 1 HR 01/01/24 06/24/24 History PRIOR TO DENTAL PROCEDURES docusate sodium 100 mg tablet 200 mg PO HS 01/01/24 06/29/24 History insulin glargine 100 unit/mL (3 12 unit subcut BID 01/24/24 06/29/24 History mL) subcutaneous pen (Basaglar KwikPen U-100 Insulin) amiodarone 200 mg tablet 200 mg PO DAILY #90 tabs 02/15/24 06/29/24 Rx atorvastatin 80 mg tablet 80 mg PO QAM #90 tabs 02/26/24 06/29/24 Rx clopidogrel 75 mg tablet 75 mg PO DAILY #90 tabs 02/26/24 06/29/24 Rx pantoprazole 40 mg tablet,delayed 40 mg PO DAILYBB #90 tabs 03/04/24 06/29/24 Rx release insulin regular human 100 unit/mL See Rx Instructions .Route 03/12/24 06/29/24 Rx (3 mL) subcutaneous pen (Novolin R .COMPLEX #15 mL FlexPen) fluticasone propionate 50 1 spray intranasal BID #16 grams 04/03/24 06/29/24 Rx mcg/actuation nasal spray,suspension levothyroxine 50 mcg tablet 50 mcg PO DAILYBB #90 tabs 04/03/24 06/29/24 Rx multivitamin 1 tab PO DAILY #90 tabs 04/03/24 06/24/24 Rx tramadol 50 mg tablet 50 mg PO Q12H PRN pain #60 tabs 04/03/24 06/29/24 Rx quetiapine 25 mg tablet (Seroquel) 25 mg PO HS 04/04/24 06/29/24 History apixaban 2.5 mg tablet (Eliquis) 2.5 mg PO Q12H 04/05/24 06/29/24 History sevelamer carbonate 800 mg tablet 800 mg PO TIDM 04/05/24 06/29/24 History triamcinolone acetonide 0.1 % 1 applic topical BID itching #80 04/07/24 06/12/24 Rx topical cream grams midodrine 2.5 mg tablet 2.5 mg PO TIDM #270 tabs 04/08/24 06/29/24 Rx metoprolol succinate 50 mg 75 mg (1.5 x 50 mg) PO HS #90 tabs 04/25/24 06/29/24 Rx tablet,extended release 24 hr menthol 0.44 %-zinc oxide 20.6 % See Rx Instructions topical 05/13/24 06/12/24 Rx topical ointment (Calmoseptine) .COMPLEX PRN skin irritation #113 grams ofloxacin 0.3 % ear drops 5 drp otic (ear) BID 14 days #10 mL 05/20/24 06/12/24 Rx insulin regular human 100 unit/mL See Rx Instructions subcut Q6H PRN 06/03/24 06/29/24 Rx injection solution (Novolin R hyperglycemia #30 mL Regular U-100 Insulin) insulin syringe-needle U-100 0.3 #100 ea 06/03/24 06/12/24 Rx mL 31 gauge x 5/16" (BD Insulin Syringe Ultra-Fine) pen needle, diabetic 31 gauge x #200 ea 06/03/24 06/12/24 Rx 3/16" (BD Ultra-Fine Mini Pen Needle) pen needle, diabetic 32 gauge x #600 ea 06/03/24 06/12/24 Rx 5/32" (BD Maxine 2nd Gen Pen Needle) acetaminophen 325 mg tablet 325 mg PO Q6H PRN Pain 06/24/24 06/29/24 History furosemide 80 mg tablet 80 mg PO DAILY 06/29/24 06/29/24 History Patient History Medical History Hemodialysis catheter malfunction Accelerated hypertension Acute hypoxemic respiratory failure Uremia Atrial fibrillation with rapid ventricular response High anion gap metabolic acidosis Cardiomyopathy Acute combined systolic and diastolic CHF, NYHA class 3 Shortness of breath Closed head injury Acute hypoxemic respiratory failure Acute pulmonary edema Murmur Skin tear of left forearm without complication Skin tear of left elbow without complication Obesity Chronic renal insufficiency FOLLOWED BY DR. CORDOVA CKD V Acute pulmonary edema Ear drum perforation High blood urea nitrogen (BUN) Elevated troponin Acute kidney injury superimposed on CKD Acute AR ESRD (end stage renal disease) on dialysis [facility] M/W/F NSTEMI (non-ST elevated myocardial infarction) Aug 2023 > cath > [facility] > no stents Pneumonia Sep 2023 > resolved per pt COVID-12 Oct 2023 > resolved BPH (benign prostatic hyperplasia) Arteriovenous fistula Left AVF creation 11/2022- now has occlusion- reason for upcoming procedure History of kidney stones Glaucoma HX OF- S/P TREATMENT- NO CURRENT ISSUES Cyst of kidney, acquired Dyslipidemia Hypertension FOLLOWED BY DR. RAYO Obesity, Class II, BMI 35-39.9 Surgical History History of bilateral knee replacement History of cardiac cath Aug 2023 > cath > [facility] > no stents History of vascular access device right chest at present History of total right knee replacement H/O eye surgery RT/LEFT EYE FOR GLAUCOMA History of cataract surgery LEFT/RT History of total left knee replacement (TKR) X 2 History of lithotripsy a couple times History of tonsillectomy History of angioplasty at the age of 51 History of surgery scrotal hernia repair History of exploratory laparotomy History of umbilical hernia repair History of colonoscopy History of ear surgery Tympanic membrane repair--per pt a couple times Family History Father Cancer of kidney Hypertension Cardiac disorder Family/Other Cancer of kidney Bone cancer Mother Bone cancer Cardiac disorder Hypertension Other No family history of adverse response to anesthesia No family history of bleeding disorder Social History Smoking Status: Former smoker Tobacco Type: Cigarettes Second Hand Exposure: No; Do You Dip or Chew Tobacco: No; Hx Alcohol Use: No Hx Substance Use: No Preferred Language: Kazakh Communication Ability: Effective Visual Impairment: Limited Hearing Ability: Normal Marketing Executive Required: No Beliefs That Will Affect Care: None marital status: / Current Living Situation: Personal Care Facility Current Living Situation Comment: [facility] current occupational status: employed 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 How many Children do You have: 1 How many Children do You have Comment: Stepdaughter, 2 grandchildren Feels Safe at Home: Yes Safety Concerns: Feels Safe At This Time Diet: regular caffeine: Yes during the past year weight has: remained stable Dental Care, Regularly: Yes Physical Activity Frequency: 5-6 Times per Week Seatbelt Use: always Sunscreen Use: No Assistive Devices: Walker Review of Systems Constitutional: no fever Eyes: no problem reported Ear, Nose, Mouth, Throat: no problem reported Respiratory: no cough and no dyspnea Cardiovascular: no chest pain Gastrointestinal: no abdominal pain, no nausea, no vomiting and no diarrhea/loose stools Integumentary: no problem reported Physical Exam Constitutional: not in distress Breathing comfortably on O2 at 4 L/min NC Eyes: PERRL, conjunctivae normal, anicteric sclerae ENMT: external ear and nose normal, oropharynx normal Neck: trachea midline, no thyromegaly Respiratory: no respiratory distress Auscultation: lungs clear to auscultation bilaterally Cardiovascular: Rate/Rhythm: regular rate and regular rhythm Extremities: + edema (trace pretibial pitting edema) L BC AVF + bruit Gastrointestinal (Abdomen): normal bowel sounds, soft, nontender, no hepatosplenomegaly Musculoskeletal: Extremities: no cyanosis and no clubbing Neurologic: Speech / Cognition: normal speech and normal cognition Psychiatric: Affect: euthymic affect Results & Data Vital Signs (Past 12 Hours) Vital Signs Temp Pulse Pulse Resp BP BP Pulse Ox 06/30/24 07:53 36.6 C 87 16 118/77 99 06/30/24 02:49 68 06/30/24 02:49 06/30/24 02:32 36.7 C 71 18 126/75 98 06/30/24 02:03 72 19 186/67 H 95 06/30/24 01:21 73 153/84 H 93 06/30/24 01:00 71 132/82 96 06/30/24 00:42 71 143/89 H 95 06/30/24 00:12 70 06/30/24 00:06 71 152/85 H 93 06/29/24 23:17 71 19 96 06/29/24 23:00 70 132/79 96 06/29/24 22:00 82 20 136/76 95 06/29/24 21:20 76 18 105/61 100 O2 Del Method O2 Flow Rate FiO2 06/30/24 07:53 Nasal Cannula 4 06/30/24 02:49 06/30/24 02:49 Nasal Cannula 4 06/30/24 02:32 Nasal Cannula 4 06/30/24 02:03 Nasal Cannula 4 06/30/24 01:21 Nasal Cannula 4 06/30/24 01:00 Nasal Cannula 4 06/30/24 00:42 Nasal Cannula 4 06/30/24 00:12 06/30/24 00:06 Nasal Cannula 4 06/29/24 23:17 40 06/29/24 23:00 CPAP 06/29/24 22:00 06/29/24 21:20 Laboratory Results Laboratory Results WBC 8.17 K/ul (4.8-10.8) 06/30/24 03:19 RBC 3.67 M/uL (4.70-6.10) L 06/30/24 03:19 Hgb 11.3 g/dl (14.0-18.0) L 06/30/24 03:19 POC Hgb 13.9 g/dl (14.0-18.0) L 06/29/24 20:15 Hct 34.7 % (42.0-52.0) L 06/30/24 03:19 POC Hct 41 % (42-52) L 06/29/24 20:15 MCV 94.6 fL (80.0-100.0) 06/30/24 03:19 MCH 30.8 pg (25.0-34.0) 06/30/24 03:19 MCHC 32.6 g/dL (32.0-36.0) 06/30/24 03:19 RDW Std Deviation 52.2 fL (36.4-46.3) H 06/30/24 03:19 RDW Coeff of Aysha 15.0 % (11.5-14.5) H 06/30/24 03:19 Plt Count 171 K/uL (130-400) 06/30/24 03:19 MPV 11.2 fL (9.4-12.4) 06/30/24 03:19 Immature Gran % (Auto) 0.7 % 06/29/24 20:14 Neut % (Auto) 67.5 % 06/29/24 20:14 Lymph % (Auto) 22.4 % 06/29/24 20:14 Hall % (Auto) 7.4 % 06/29/24 20:14 Eos % (Auto) 1.5 % 06/29/24 20:14 Baso % (Auto) 0.5 % 06/29/24 20:14 Neut # (Auto) 7.07 K/uL (1.40-6.50) H 06/29/24 20:14 Lymph # (Auto) 2.35 K/uL (1.20-3.40) 06/29/24 20:14 Hall # (Auto) 0.78 K/uL (0.11-0.59) H 06/29/24 20:14 Eos # (Auto) 0.16 K/uL (0.00-0.50) 06/29/24 20:14 Baso # (Auto) 0.05 K/uL (0.00-0.20) 06/29/24 20:14 Immature Gran # (Auto) 0.07 K/uL (0.01-0.20) 06/29/24 20:14 PT 10.9 Seconds (9.0-12.0) 06/29/24 20:14 INR 1.0 (0.9-1.1) 06/29/24 20:14 POC pH 7.25 (7.35-7.45) L 06/29/24 20:15 POC pCO2 49 mmHg (35-46) H 06/29/24 20:15 POC pO2 99 mmHg (80-95) H 06/29/24 20:15 POC HCO3 21 prema/L (19-24) 06/29/24 20:15 POC Total CO2 23 mmol/L (24-31) L 06/29/24 20:15 POC Base Excess -6.0 prema/L (-9-1.8) 06/29/24 20:15 ABG pH 7.30 (7.35-7.45) L 06/29/24 Unknown ABG pCO2 44 mmHg (35-46) 06/29/24 Unknown ABG pO2 100 mmHg (80-95) H 06/29/24 Unknown ABG HCO3 22 mmol/L (19-24) 06/29/24 Unknown POC ABG O2 Sat 96.0 % (90-95) H 06/29/24 20:15 ABG O2 Saturation 96.2 % (90-95) H 06/29/24 Unknown ABG Base Excess -4.8 mEq/L (-9-1.8) 06/29/24 Unknown Aniket Test Pos (Pos) 06/29/24 Unknown Oxygen Given 40% 06/29/24 Unknown POC Sodium 133 mmol/L (135-144) L 06/29/24 20:15 Sodium 136 mmol/L (136-145) 06/30/24 03:19 POC Potassium 4.3 mmol/L (3.3-5.0) 06/29/24 20:15 Potassium 4.6 mmol/L (3.5-5.1) 06/30/24 03:19 Chloride 96 mmol/L (98-107) L 06/30/24 03:19 Carbon Dioxide 24 mmol/L (21-32) 06/30/24 03:19 Anion Gap 16 (3-11) H 06/30/24 03:19 BUN 88 mg/dl (6-23) H 06/30/24 03:19 Creatinine 6.25 mg/dl (0.6-1.4) H* 06/30/24 03:19 Est Cr Clr Drug Dosing 10.2 ml/min 06/30/24 03:19 eGFR 8.28 06/30/24 03:19 BUN/Creatinine Ratio 14.1 (10-20) 06/30/24 03:19 Glucose 309 mg/dl (70-99(Fasting)) H* 06/30/24 03:19 POC Glucose 139 mg/dl (70-99) H 06/30/24 07:24 Lactate 2.2 mmol/L (0.4-2.0) H* 06/30/24 03:19 Calcium 8.8 mg/dl (8.6-10.3) 06/30/24 03:19 Magnesium 1.9 mg/dl (1.7-2.4) 06/29/24 20:14 Total Bilirubin 0.4 mg/dl (0.2-1.0) 06/30/24 03:19 Direct Bilirubin 0.1 mg/dl (0-0.2) 06/30/24 03:19 AST 11 U/L (13-39) L 06/30/24 03:19 ALT 10 U/L (7-52) 06/30/24 03:19 Alkaline Phosphatase 153 U/L (34-104) H 06/30/24 03:19 Troponin I High Sens 740.4 pg/ml (0-20) H* D 06/30/24 03:19 B-Natriuretic Peptide 944 pg/ml (0-100) H 06/29/24 20:14 Total Protein 6.8 gm/dl (6.0-8.3) 06/30/24 03:19 Albumin 3.8 gm/dl (3.4-5.0) 06/30/24 03:19 Globulin 3.6 gm/dl (2.5-4.0) 06/29/24 20:14 Albumin/Globulin Ratio 1.2 (0.9-2) 06/29/24 20:14 Urine Color Yellow 06/29/24 21:40 Urine Appearance Cloudy (Clear) A 06/29/24 21:40 Urine pH 7.0 (4.5-7.5) 06/29/24 21:40 Ur Specific [place] 1.014 (1.000-1.030) 06/29/24 21:40 Urine Protein 2+ (Negative) H 06/29/24 21:40 Urine Glucose (UA) 3+ (Negative) H 06/29/24 21:40 Urine Ketones Negative (Negative) 06/29/24 21:40 Urine Blood 2+ (Negative) H 06/29/24 21:40 Urine Nitrite Negative (Negative) 06/29/24 21:40 Urine Bilirubin Negative (Negative) 06/29/24 21:40 Urine Urobilinogen Negative (Negative) 06/29/24 21:40 Ur Leukocyte Esterase 3+ (Negative) H 06/29/24 21:40 Urine WBC (Auto) >50 /hpf (0-5) H 06/29/24 21:40 Urine RBC (Auto) >20 /hpf (0-2) H 06/29/24 21:40 U Hyaline Cast (Auto) 0-2 /lpf (0-2) 06/29/24 21:40 U Epithel Cells (Auto) 0-2 /hpf (0-2) 06/29/24 21:40 Urine Bacteria (Auto) None Seen (None Seen) 06/29/24 21:40 Adenovirus (PCR) Not Detected (NotDetected) 06/29/24 20:14 B. pertussis DNA (PCR) Not Detected (NotDetected) 06/29/24 20:14 B.parapertussis DNA PCR Not Detected (NotDetected) 06/29/24 20:14 C. pneumoniae DNA (PCR) Not Detected (NotDetected) 06/29/24 20:14 Coronavirus OC43 (PCR) Not Detected (NotDetected) 06/29/24 20:14 Coronavirus HKU1 (PCR) Not Detected (NotDetected) 06/29/24 20:14 Coronavirus 229E (PCR) Not Detected (NotDetected) 06/29/24 20:14 SARS-CoV-2 (PCR) Not Detected (NotDetected) 06/29/24 20:14 Coronavirus NL63 (PCR) Not Detected (NotDetected) 06/29/24 20:14 Human Metapneumovir PCR Not Detected (NotDetected) 06/29/24 20:14 Influenza Type A (PCR) Not Detected (NotDetected) 06/29/24 20:14 Influenza Type B (PCR) Not Detected (NotDetected) 06/29/24 20:14 M. pneumoniae (PCR) Not Detected (NotDetected) 06/29/24 20:14 Parainfluenza 1 (PCR) Not Detected (NotDetected) 06/29/24 20:14 Parainfluenza 2 (PCR) Not Detected (NotDetected) 06/29/24 20:14 Parainfluenza 3 (PCR) Not Detected (NotDetected) 06/29/24 20:14 Parainfluenza 4 (PCR) Not Detected (NotDetected) 06/29/24 20:14 RSV (PCR) Not Detected (NotDetected) 06/29/24 20:14 Entero/Rhino (PCR) Not Detected (NotDetected) 06/29/24 20:14 Impressions Chest X-Ray 06/29/24 20:12 XR chest 1V portable CLINICAL HISTORY: Dyspnea TECHNIQUE: Single frontal radiograph of the chest was obtained. Comparison: Comparison is made to chest radiograph 04/21/2024 FINDINGS: No lines and tubes are seen. Cardiomegaly is noted. The aortic arch is calcified. Pulmonary airspace opacities most evident in the left lower lung. No evidence of pleural effusion or pneumothorax. IMPRESSION: Probably airspace opacities are seen most evident in the left lower lung. This may represent atelectasis, pneumonia, and/or aspiration. ACT 112: Negative or not required by law. Electronically signed by: You Mario M.D. 06/30/2024 7:57 AM PG Care Time/CCT Total # of Minutes Spent Total Time Spent with Patient: Total time spent is greater than 50% in coordination of care (as documented) at patient's floor/unit and/or counseling patient: Coding Level of Care Code 10696 IN/OBS CONSULT LVL 5,80M Diagnoses End stage renal disease N18.6 Acute hypoxic respiratory failure J96.01 Atrial fibrillation I48.91
[2024-06-30] MEDS ORDERED: SODIUM CHLORIDE 0.9% 1,000 ML IV PRN (09:18)
--- NOTE | 2024-06-30 15:35 | Electrocardiogram Report ---
Test Reason : Blood Pressure : */* mmHG Vent. Rate : 78 BPM Atrial Rate : 86 BPM P-R Int : 220 ms QRS Dur : 140 ms QT Int : 420 ms P-R-T Axes : 64 -36 88 degrees QTcB Int : 478 ms Sinus rhythm with 1st degree A-V block Left axis deviation Premature atrial complexes Right bundle branch block Left ventricular hypertrophy with repolarization abnormality ( R in aVL , Romhilt-Hein ) Cannot rule out Septal infarct (cited on or before 09-Jul-2020) Abnormal ECG When compared with selected ECG of 20-Apr-2024 17:53, Right bundle branch block is now Present likely due to lead placement Confirmed by Floyd Abad ([id number]) on 06/30/2024 3:35:24 PM Referred By: Radha harris [facility] Confirmed By: Floyd Abad
--- NOTE | 2024-06-30 19:03 | Hospitalist Progress Note ---
Date of Service June 30, 2024 Assessment & Plan (1) Hypoxia: Plan: 84yo male with ESRD on HD, CHF presenting with acute hypoxic respiratory failure requiring rescue BiPAP placement in the ER. Secondary to acute on chronic HFpEF and volume overload from renal failure Diuresing significantly after being given 60 Mg IV Lasix in the ER CXR with left lower lobe opacity of atelectasis versus pulmonary edema, now weaned to 4L NC Received hemodialysis today with removal of 3.4 L, estimated dry weight to be reduced and nephrology changed Lasix 80 mg p.o. daily (home dose) to Bumex 2 mg p.o. daily Continue to measure I/Os, daily weights, Danielson catheter in place-would like to remove but patient would like to remain in place for now Wean off oxygen as able to (2) Acute on chronic diastolic (congestive) heart failure: Plan: As noted above, volume management with dialysis and changing diuretics Daily weights, strict I's and O's, make fluid restriction 1200 mL, low-sodium diet (3) Elevated troponin: Plan: Patient denies chest pain. EKG with RBBB. Troponin elevation 88.9 --> peaked 1220, then back down to 1000- likely myocardial demand ischemia in setting of prolonged hypoxia Check echocardiogram Continue telemetry monitoring Continue cardiac medications - Plavix, Atorvastatin and Metoprolol (4) ESRD on dialysis: Plan: Patient with ESRD on HD q MWF. He had a full treatment on Sunday prior to admission and again on 06/30. Sill makes urine. Follows with Dr. Snow Lowering estimated dry weight as above Continue Sevelamer Nephrology consultation appreciated Continue Midodrine Changing Lasix to Bumex (5) Hyperglycemia: Plan: Patient with poorly controlled DM. Last KhiN3J=6.5. Patient is on Lantus 12u BID and ISS Continue Lantus 10u BID and ISS Plan Chronic Medical Conditions: Paroxysmal atrial fibrillation-in sinus rhythm here -Continue Eliquis -Continue metoprolol -Continue Amiodarone GERD -Protonis 40mg po daily Hypothyroidism-TSH 3.0 in 02/2024 -Synthroid 50mcg po daily CAD/moderate aortic stenosis-cardiac cath 08/2023 with 100% mid LAD, nonobstructive CAD-medical management -Continue Plavix, Atorvastatin and Metoprolol Ppx - Continue Apixaban 2.5mg po BID for DVT prophylaxis Code - DNR/DNI per discussion with patient at bedside Dispo -continued stay in PCU Admission and Anticipated Discharge Date Admission Date: June 29, 2024 Subjective Pt seen after return from dialysis late afternoon. He is still on O2 but feels less SOB than on admission. Has had a brisk diuresis with IV lasix and po Bumex today. Had 3.4L removed at HD. He is concerned about how this happened and preventing it from happening in the future. He reports he drinks 3 glasses of iced tea and 1 cup of coffee daily, limit sodium in his diet Telemetry with sinus rhythm and first-degree AV block, rates in the 40s to 60s Physical Exam Constitutional: WD/WN, vitals as above Respiratory: normal respiratory effort; no cough Auscultation: + crackles (right base); no rhonchi and no wheezes Cardiovascular: Rate/Rhythm: regular rate and regular rhythm Heart Sounds: + murmur (2/6 holosystolic murmur at LLSB,2/6 PRAVEEN at RUSB) Extremities: no edema Psychiatric: A+Ox3, euthymic affect Genitourinary: Danielson catheter in place draining clear yellow urine Results & Data Results & Data Vital Signs (Past 12 Hours) Vital Signs Temp Pulse Pulse Pulse Resp BP BP 06/30/24 17:45 36.3 C L 66 111/61 06/30/24 17:00 59 L 93/55 L 06/30/24 16:30 65 104/46 L 06/30/24 16:00 67 102/62 06/30/24 15:30 64 115/61 06/30/24 15:00 63 115/61 06/30/24 14:45 63 101/64 06/30/24 14:30 64 107/59 L 06/30/24 14:00 64 106/60 06/30/24 13:41 62 103/57 L 06/30/24 13:30 36.7 C 64 06/30/24 08:00 66 06/30/24 08:00 06/30/24 07:53 36.6 C 87 16 118/77 Pulse Ox O2 Del Method O2 Flow Rate 06/30/24 17:45 06/30/24 17:00 06/30/24 16:30 06/30/24 16:00 06/30/24 15:30 06/30/24 15:00 06/30/24 14:45 06/30/24 14:30 06/30/24 14:00 06/30/24 13:41 06/30/24 13:30 06/30/24 08:00 06/30/24 08:00 Nasal Cannula 4 06/30/24 07:53 99 Nasal Cannula 4 Laboratory Results CBC, BMP, troponin, urine culture, lactate reviewed PG Care Time/CCT Total # of Minutes Spent Total Time Spent with Patient: Total time spent is greater than 50% in coordination of care (as documented) at patient's floor/unit and/or counseling patient: Coding Level of Care Code 00743 SUB INP/OBS CARE 3/50MIN Diagnoses Hypoxia R09.02 Acute on chronic diastolic (congestive) heart failure I50.33 Elevated troponin R79.89 ESRD on dialysis N18.6; Z99.2 Hyperglycemia R73.9
--- NOTE | 2024-06-30 19:44 | XCELERA ---
[id number] \\[id number]
[2024-06-30] MEDS: DOCUSATE SODIUM 100 MG CAP PO SCH (22:31)
[2024-06-30] MEDS: QUEtiapine FUMARATE 25 MG TABLET PO SCH (22:32)
[2024-06-30] MEDS: METOPROLOL SUCC 25MG EXT REL TAB PO SCH (22:32)
[2024-07-01 07:46] LABS: Hematocrit (blood only) 33.5 % (42.0-52.0); Mean Corpuscular Hemoglobin 30.6 pg (25.0-34.0); Mean Corpuscular Hgb Conc 32.8 g/dL (32.0-36.0); Mean Corpuscular Volume 93.3 fL (80.0-100.0); Mean Platelet Volume 11.1 fL (9.4-12.4); Platelet Count 178 K/uL (130-400); RDW Coefficient of Variation 15.4 % (11.5-14.5); RDW Standard Deviation 52.4 fL (36.4-46.3); Red Blood Count 3.59 M/uL (4.70-6.10)
[2024-07-01] MEDS: BUMETANIDE 1 MG TAB PO SCH (08:02)
[2024-07-01 08:05] LABS: Calcium 9.7 mg/dl (8.6-10.3); Creatinine Clr Calc Pharmacy 11.7 ml/min; Potassium 4.1 mmol/L (3.5-5.1)
--- NOTE | 2024-07-01 08:42 | Nephrology Progress Note ---
Date of Service July 01, 2024 Assessment & Plan (1) End stage renal disease: Plan: * ESKD due to DKD, hypertensive nephrosclerosis * Outpatient HD Rx: MWF [facility] 3.75hr 2K 2Ca Na 137 HCO3 35 Qb 400 F-180NR; EDW 96.5 kg * Volume status and electrolyte balance are now acceptable. No acute indication for HD today * If discharged today, please have patient resume MWF HD at [facility] (2) Acute hypoxic respiratory failure: Plan: * Patient presented w/ hypoxemia and volume overload. * No fever, leukocytosis or productive cough * 3.5 L UF obtained w/ HD yesterday * Physical exam improved. LLL rales resolved. SaO2 is 95% on RA * CXR film reviewed this am. LLL infiltrate has resolved * Discussed that IDWG have been 3-5 L. Stressed the importance of 1 L/day oral fluid restriction * Furosemide has been changed to Bumetanide 2 mg qAM to improve diuresis in between HD treatments (3) Atrial fibrillation: Plan: * On Amiodarone and Eliquis. HR is controlled. * ECG shows sinus rhythm w/ 1st degree AVB, no ischemic change * Troponin is now trending down following UF w/ HD * 06/30/24 echocardiogram: LVEF 55-60%, mod LVH, normal RV size and function, moderate , moderate to severe pulm HTN w/ PASP 55-60 mm Hg. No change from 04/22/24 study Admission and Anticipated Discharge Date Admission Date: June 29, 2024 Subjective Mr. Gaviria was evaluated in his hospital room this morning. He was dialyzed yesterday for 3.5 L UF. Post dialysis plasma refill testing was negative. Hospital weight has improved from 101.4 kg down to 94.8 kg. Patient is breathing comfortably on RA and denies fever or productive cough Review of Systems Constitutional: no fever Eyes: no problem reported Ear, Nose, Mouth, Throat: no problem reported Respiratory: no cough and no dyspnea Cardiovascular: no chest pain Gastrointestinal: no abdominal pain, no nausea, no vomiting and no diarrhea/loose stools Integumentary: no problem reported Physical Exam Constitutional: not in distress Eyes: PERRL, conjunctivae normal, anicteric sclerae ENMT: external ear and nose normal, oropharynx normal Neck: trachea midline, no thyromegaly Respiratory: no respiratory distress Auscultation: lungs clear to auscultation bilaterally Cardiovascular: Rate/Rhythm: regular rate and regular rhythm Extremities: no edema Gastrointestinal (Abdomen): normal bowel sounds, soft, nontender, no hepatosplenomegaly Musculoskeletal: Extremities: no cyanosis and no clubbing Neurologic: Speech / Cognition: normal speech and normal cognition Psychiatric: Affect: euthymic affect Results & Data Vital Signs (Past 12 Hours) Vital Signs Temp Pulse Resp BP Pulse Ox O2 Del Method O2 Flow Rate 07/01/24 08:35 94 H Room Air 07/01/24 07:17 36.9 C 65 19 96/60 L 95 Nasal Cannula 3 07/01/24 04:29 36.8 C 73 18 104/65 96 Nasal Cannula 3 07/01/24 01:22 Nasal Cannula 4 06/30/24 23:52 36.5 C 69 18 98/58 L 96 Room Air 06/30/24 22:40 36.5 C 96 H 18 98/58 L 96 Nasal Cannula 4 Laboratory Results Laboratory Results - last 24 hr 06/30/24 06/30/24 06/30/24 08:24 11:13 17:57 WBC RBC Hgb Hct MCV MCH MCHC RDW Std Deviation RDW Coeff of Aysha Plt Count MPV Sodium Potassium Chloride Carbon Dioxide Anion Gap BUN Creatinine Est Cr Clr Drug Dosing eGFR BUN/Creatinine Ratio Glucose POC Glucose 259 H 94 Calcium Troponin I High Sens 1220.0 H* D 06/30/24 06/30/24 07/01/24 19:24 19:56 07:13 WBC RBC Hgb Hct MCV MCH MCHC RDW Std Deviation RDW Coeff of Aysha Plt Count MPV Sodium Potassium Chloride Carbon Dioxide Anion Gap BUN Creatinine Est Cr Clr Drug Dosing eGFR BUN/Creatinine Ratio Glucose POC Glucose 184 H 206 H Calcium Troponin I High Sens 1004.6 H* 07/01/24 07:17 WBC 6.30 RBC 3.59 L Hgb 11.0 L Hct 33.5 L MCV 93.3 MCH 30.6 MCHC 32.8 RDW Std Deviation 52.4 H RDW Coeff of Aysha 15.4 H Plt Count 178 MPV 11.1 Sodium 135 L Potassium 4.1 Chloride 98 Carbon Dioxide 25 Anion Gap 12 H BUN 58 H D Creatinine 5.25 H* D Est Cr Clr Drug Dosing 11.7 eGFR 10.21 BUN/Creatinine Ratio 11.0 Glucose 217 H POC Glucose Calcium 9.7 Troponin I High Sens PG Care Time/CCT Total # of Minutes Spent Total Time Spent with Patient: Total time spent is greater than 50% in coordination of care (as documented) at patient's floor/unit and/or counseling patient: Coding Level of Care Code 24404 SUB INP/OBS CARE 3/50MIN Diagnoses End stage renal disease N18.6 Acute hypoxic respiratory failure J96.01 Atrial fibrillation I48.91
--- NOTE | 2024-07-01 10:07 | XRay Report ---
XR chest 1V portable CLINICAL HISTORY: chf TECHNIQUE: Single frontal radiograph of the chest was obtained. Comparison: Comparison is made to chest radiograph 06/29/2024 FINDINGS: No lines and tubes are seen. Cardiomegaly is noted. Prominence and cephalization of the vasculature i s seen. No evidence of pleural effusion or pneumothorax. IMPRESSION: Cardiomegaly and mild pulmonary edema. As represents a decrease from the prior exam. ACT 112: Negative or not required by law. Electronically signed by: You Mario M.D. 07/01/2024 10:06 AM
[2024-07-01 11:06] VITALS: BP 100/63; RESP 18; TEMP 97.9; O2SAT 92
--- NOTE | 2024-07-01 15:16 | Discharge Summary ---
Discharge Summary Date of Service July 01, 2024 Principal Dx & Hospital Course #1 = Principal Diagnosis (1) Hypoxia: 84yo male with ESRD on HD, CHF presenting with acute hypoxic respiratory failure requiring rescue BiPAP placement in the ER. Secondary to acute on chronic HFpEF and volume overload from renal failure Diuresed significantly after being given 60 Mg IV Lasix in the ER and received hemodialysis on 06/30 with removal of 3.4 L of fluid Weight is down significantly to 96.5 kg CXR with left lower lobe opacity of atelectasis versus pulmonary edema on admission and repeat chest x-ray on day of discharge is significantly improved- he is now weaned to room air and pulse ox is 95% Nephrology changed Lasix 80 mg p.o. daily (home dose) to Bumex 2 mg p.o. daily for improved diuretic as an outpatient Stressed 1000 mL fluid restriction and low-sodium diet at home Stable for discharge to home (2) Acute on chronic diastolic (congestive) heart failure: As noted above, volume management with dialysis and changing diuretics Daily weights, strict I's and O's, make fluid restriction 1000 mL, low-sodium diet (3) Elevated troponin: Patient denies chest pain. EKG with RBBB. Troponin elevation 88.9 --> peaked 1220, then back down to 1000- likely *Type II AL due to demand ischemia in setting of prolonged hypoxia Echocardiogram with preserved EF, moderate aortic stenosis and apical septal hypokinesis, moderate concentric LVH, moderate mitral stenosis and moderate to severe pulmonary hypertension-unchanged from previous Continue cardiac medications - Plavix, Atorvastatin and Metoprolol Follow-up with cardiology as an outpatient for valvular disease (4) ESRD on dialysis: Patient with ESRD on HD q MWF. He had a full treatment on Sunday prior to admission and again on 06/30. Sill makes urine. Follows with Dr. Snow Lowering estimated dry weight as above Continue Sevelamer Nephrology consultation appreciated Continue Midodrine Changing Lasix to Bumex (5) Hyperglycemia: Patient with poorly controlled DM. Last [id number]=8.5. Patient is on Lantus 12u BID and ISS Continue Lantus 10u BID and ISS Plan Chronic Medical Conditions: Paroxysmal atrial fibrillation-remained in sinus rhythm here -Continue Eliquis -Continue metoprolol -Continue Amiodarone GERD -Protonix 40mg po daily Hypothyroidism-TSH 3.0 in 02/2024 -Synthroid 50mcg po daily CAD/moderate aortic stenosis-cardiac cath 08/2023 with 100% mid LAD, nonobstructive CAD-medical management -Continue Plavix, Atorvastatin and Metoprolol Follow-up with cardiology as an outpatient Ppx - Continue Apixaban 2.5mg po BID for DVT prophylaxis Code - DNR/DNI per discussion with patient at bedside Dispo -stable for discharge to personal-alf Discussed care with daughter at the bedside Notes For Next Care Provider Follow-up with cardiology routinely for valvular heart disease Continue usual hemodialysis schedule on Sunday Medication Changes From Visit Discontinued furosemide 80 mg p.o. daily Started Bumex 2 mg p.o. daily Admission HPI Per Admitting Provider Davin Gaviria is a pleasant 84yo male with history of ESRD on HD, DM, HTN, HLP and ICM presenting from [facility] and episode of hypoxia. Patient ate dinner this evening without difficulty - he had a data architect salad. No choking or aspiration during the meal. Approximately 30 minutes after eating he developed a severe cough and shortness of breath. His saturations were found to be in the 60's in the field so he was placed on CPAP by EMS with improvement to 82%. He was given a Nitro as well. In the ER patient has been stable on BiPAP. He reports to occasional nausea, otherwise no complaints. He denies fever, chills, abdominal pain, vomiting or diarrhea. NO cough or congestion preceding tonight's event. ER Course: Lasix 20mg IV Apixaban 2.5mg PO Metoprolol 75mgpo Midodrine 2.5mg Glargine 12u Aspart 8u Lasix 40u IV Discharge Exam Constitutional WD/WN, vitals as above Respiratory normal respiratory effort; no cough Auscultation: + crackles (right base); no rhonchi and no wheezes Cardiovascular Rate/Rhythm: regular rate and regular rhythm Heart Sounds: + murmur (2/6 diastolic murmur at LLSB,2/6 PRAVEEN at RUSB) Extremities: no edema Psychiatric A+Ox3, euthymic affect Discharge Plan Discharge Items Patient Disposition: Personal [facility] Reason For Visit: ACUTE HYPOXIC RESPIRATORY FAILURE Discharge Diagnosis: Acute on chronic heart failure with preserved ejection fraction Acute hypoxic respiratory failure Volume overload from renal failure Condition on Discharge: Good Activity: Resume your previous activity Non-emergency contact: Primary Care Provider, Central Office Maintainer and Ring Barker Operator Call non-emergency contact if: you have any medication questions and your symptoms worsen Follow-up/Referrals: Orly Dickson MD [Primary Care Provider] - (Follow-up within 1 to 2 weeks) Diet: Dialysis Renal and Low Sodium (2gm) Fluids: 1000ml (4 cups) Addtl Attending Provider Instructions: You were admitted with low oxygen levels and shortness of breath from being overloaded with fluid. You had dialysis to remove extra fluid and your diuretic was changed from Lasix to Bumex. A lot of fluid was removed and you felt less short of breath. Please continue your usual dialysis treatments on Mondays, Wednesdays, and Fridays. Call your Primary Care doctor if any of the following symptoms or problems start or get worse: * Shortness of breath or difficulty breathing * Wake up at night short of breath * Chest pain * Cough * Swelling of your hands, feet, or legs * More fatigued or tired with your normal activity * Palpitations - sudden fast heart beats WEIGHT * Weigh yourself every morning after using the bathroom. * Use the same scale. * Wear the same amount of clothing. * Write your weight down on a chart. * Call your Primary Care doctor if you gain more than 2-3 pounds in 1-2 days. MEDICATIONS * Use this discharge instruction sheet for medication instructions. * Take your medications at the time your doctor ordered. * Do not skip a dose of your medicines. * If you miss a dose of medicine, take it as soon as possible, but DO NOT DOUBLE A DOSE. * Read your medicine information when you get home. * Know all of the side effects of your medicine. If in doubt, ask your pharmacist * Call your Primary Care doctor's office if you have any side effects. * Be sure all of your doctors know what medicine and herbs you take (including cold, flu, and herbal medicine). Take the following with you to your follow-up doctor appointments: * Weight Chart * Medication List * List of questions Do not drink excessive alcohol, beer or wine. Pending Studies at Discharge: No Stand-Alone Forms: [employer] Mobility, Smoking Cessation Skilled Items Patient informed of condition?: Yes DNR: Yes Discharge Level of Care: Other Communicable Disease: No Discharge Prognosis: Improving Lines: None Urinary Catheter: No Medications and DC Order Prescriptions: New bumetanide 2 mg tablet 2 mg PO QAM Qty: 30 0RF Continued (DME) BD SafetyGlide Insulin Syringe 0.3 mL 31 gauge x 15/64" syringe MISCELLANEOUS Qty: 700 3RF Rx Instructions: Use 7 times daily amiodarone 200 mg tablet 200 mg PO DAILY Qty: 90 3RF Dose Instruction: 1 TAB BY MOUTH EVERY DAY pantoprazole 40 mg tablet,delayed release (DR/EC) 40 mg PO DAILYBB Qty: 90 3RF Rx Instructions: 1 TAB BY MOUTH EVERY MORNING *DO NOT CRUSH* Novolin R FlexPen 100 unit/mL (3 mL) insulin pen See Rx Instructions .ROUTE .COMPLEX MDD 30 units Qty: 15 11RF Hold Instructions: To restart? Dose Instruction: SLIDING SCALE: (ROTATE SITES) FOUR TIMES DAILY SUBQ 141-175=1UNIT; 176- 210=2UNITS; 211-245=3UNITS; 246-280=4UNITS; 246-280=4UNITS; 281-315=5UNITS; 316- 350=6UNITS Rx Instructions: Novolin-R 3 units with breakfast; 6 units with lunch; 8 units with dinner + sliding scale (<141: 0 units, 141-175: 1 unit, 176-210: 2 units, 211-245: 3 units, 246-280: 4 units, 281-315: 5 units, etc.) multivitamin Tablet 1 tab PO DAILY Qty: 90 3RF Hold Instructions: restart? levothyroxine 50 mcg tablet 50 mcg PO DAILYBB Qty: 90 1RF Rx Instructions: 1 TAB BY MOUTH EVERY MORNING TAKE ON AN EMPTY STOMACH WITH A FULL GLASS OF WATER WAIT 30 MINUTES TO EAT, DRINK OR TAKE MEDICATIONS triamcinolone acetonide 0.1 % cream 1 applic TOP BID Qty: 80 5RF midodrine 2.5 mg tablet 2.5 mg PO TIDM Qty: 270 3RF metoprolol succinate 50 mg tablet extended release 24 hr 75 mg PO HS Qty: 90 3RF Rx Instructions: 1.5 TABS BY MOUTH AT BEDTIME Novolin R Regular U100 Insulin 100 unit/mL solution See Rx Instructions subcut Q6H PRN (Reason: hyperglycemia) Qty: 30 3RF Rx Instructions: Novolin-R 3 units with breakfast; 6 units with lunch; 8 units with dinner + sliding scale (<141: 0 units, 141-175: 1 unit, 176-210: 2 units, 211-245: 3 units, 246-280: 4 units, 281-315: 5 units, etc.) subcutaneously every 6 hours PRN; administer during TPN infusion (DME) insulin syringe-needle U-100 [BD Insulin Syringe Ultra-Fine] 0.3 mL 31 gauge x 5/16" syringe See Rx Instructions .Route Qty: 100 3RF Rx Instructions: As directed atorvastatin 80 mg tablet 80 mg PO QAM Qty: 90 3RF clopidogrel 75 mg tablet 75 mg PO DAILY Qty: 90 3RF insulin glargine [Basaglar KwikPen U-100 Insulin] 100 unit/mL (3 mL) insulin pen 12 unit subcut BID fluticasone propionate 50 mcg/actuation spray,suspension 1 spray intranasal BID Qty: 16 11RF tramadol 50 mg tablet 50 mg PO Q12H PRN (Reason: pain) Qty: 60 5RF (DME) pen needle, diabetic [BD Ultra-Fine Mini Pen Needle] 31 gauge x 3/16" needle See Rx Instructions .ROUTE .COMPLEX Qty: 200 3RF Dose Instruction: USE FOR INSULIN INJECTION NEEDED Rx Instructions: USE FOR INSULIN INJECTION twice daily (DME) pen needle, diabetic [BD Maxine 2nd Gen Pen Needle] 32 gauge x 5/32" needle See Rx Instructions miscellaneous .MEDSUPPLY Qty: 600 3RF Rx Instructions: Inject up to 5x a day with a new pen needles ofloxacin 0.3 % drops 5 drp otic (ear) BID 14 Days Qty: 10 0RF Rx Instructions: right ear acetaminophen 325 mg tablet 325 mg PO Q6H PRN (Reason: Pain) menthol-zinc oxide [Calmoseptine] 0.44-20.6 % ointment See Rx Instructions topical .COMPLEX PRN (Reason: skin irritation) Qty: 113 1RF Rx Instructions: topically apply to buttocks and posterior scrotum BID PRN (DME) FreeStyle Ritchie 14 Day Sensor Kit MISCELLANEOUS (DME) FreeStyle Ritchie 14 Day [place] Misc MISCELLANEOUS amoxicillin 500 mg capsule 2,000 mg PO DIRECTED PRN (Reason: 1 HR PRIOR TO DENTAL PROCEDURES) docusate sodium 100 mg tablet 200 mg PO HS sevelamer carbonate 800 mg tablet 800 mg PO TIDM Rx Instructions: 1 TAB BY MOUTH THREE TIMES DAILY WITH MEALS Eliquis 2.5 mg tablet 2.5 mg PO Q12H quetiapine [Seroquel] 25 mg tablet 25 mg PO HS Discontinued furosemide 80 mg tablet 80 mg PO DAILY Discharge Orders: Discharge Order- CHF (Routine); Ordered 07/01/24 Ordered By: Nena Dudley Admission Data Admit Date/Time: 06/29/24 23:52 Attending Provider: Nena Dudley Admit Provider: Cheryl Cruz Primary Care Provider: Orly Dickson V. Other Providers: Ry Snow; Cheryl Cruz Hospital Stay Data Consultations 06/29/24 23:13 ED Decision to Admit Stat 06/29/24 23:52 Consult Nephrology Routine Pending Results Patient Have Any Pending Studies at Discharge: No Discharge Instructions Given to Patient (Per Discharging Provider) You were admitted with low oxygen levels and shortness of breath from being overloaded with fluid. You had dialysis to remove extra fluid and your diuretic was changed from Lasix to Bumex. A lot of fluid was removed and you felt less short of breath. Please continue your usual dialysis treatments on Mondays, Wednesdays, and Fridays. Call your Primary Care doctor if any of the following symptoms or problems start or get worse: * Shortness of breath or difficulty breathing * Wake up at night short of breath * Chest pain * Cough * Swelling of your hands, feet, or legs * More fatigued or tired with your normal activity * Palpitations - sudden fast heart beats WEIGHT * Weigh yourself every morning after using the bathroom. * Use the same scale. * Wear the same amount of clothing. * Write your weight down on a chart. * Call your Primary Care doctor if you gain more than 2-3 pounds in 1-2 days. MEDICATIONS * Use this discharge instruction sheet for medication instructions. * Take your medications at the time your doctor ordered. * Do not skip a dose of your medicines. * If you miss a dose of medicine, take it as soon as possible, but DO NOT DOUBLE A DOSE. * Read your medicine information when you get home. * Know all of the side effects of your medicine. If in doubt, ask your pharmacist * Call your Primary Care doctor's office if you have any side effects. * Be sure all of your doctors know what medicine and herbs you take (including cold, flu, and herbal medicine). Take the following with you to your follow-up doctor appointments: * Weight Chart * Medication List * List of questions Do not drink excessive alcohol, beer or wine. Total Time Total Time Spent Total Time Spent (In Minutes): 35 minutes Total Time Includes: Examination of the Patient, Discharge Planning and Medication Reconciliation Coding Level of Care Code 19675 INP/OBS DISCH >30 MIN Diagnoses Hypoxia R09.02 Acute on chronic diastolic (congestive) heart failure I50.33 Elevated troponin R79.89 ESRD on dialysis N18.6; Z99.2 Hyperglycemia R73.9
[2024-07-01 15:36] VITALS: PULSE 99
[2024-07-02] MEDS ORDERED: SODIUM CHLORIDE 0.9% 1,000 ML IV PRN ×2 (07:00)
== END 2024-07-01 16:26 | disposition home or self-care (01) | DRG 280 ==
LOC: ED 20:03 → 2S 23:52 → SUATTDRO 23:52 → 2S 06-30 02:03